=== PATIENT | male | born 1940 | race Caucasian/White ===

== ENCOUNTER 2023-05-01 10:06 | Outpatient (AMB) | payer MEDICARE, SELFPAY ==
--- NOTE | 2023-05-01 10:10 | HO.NEPHOV_ITS ---
HPI HPI Comments History of Present Illness Details I had the pleasure of seeing Tay in follow-up of his chronic kidney disease. He has history of Whipples. He had undergone fusion at one of his knee joints. His blood sugar is labile. He is on insulin pump. His blood pressure has been at goal. He avoids nonsteroidal anti-inflammatories. He denies nausea, vomiting, diarrhea, chest pain, shortness of breath, proximal nocturnal dyspnea, orthopnea, hematuria, urinary symptoms or orthostasis. He had a mechanical fall with injuries. His serum creatinine has been stable 1.3. [facility] Medical History (Updated 05/01/23 @ 10:42 by Winston Comer MD) Hypertension CKD (chronic kidney disease) stage 3, GFR 30-59 ml/min Surgical History (Updated 05/01/23 @ 10:21 by Honey Lilly MA) History of hernia repair S/P triple vessel bypass History of back surgery History of knee replacement History of surgery on lower extremity Family History (Updated 05/01/23 @ 10:23 by Honey Lilly MA) Mother Stroke Father Heart attack Social History (Updated 05/01/23 @ 10:21 by Honey Lilyl MA) Alcohol intake: never Patient Tobacco Use Status: Former Tobacco user Vital Signs 05/01/23 10:12 Height 5 ft 6 in Weight 160 lb 4 oz BMI 25.9 BP 90/60 Blood Pressure Location Rt brachial Position Sitting Pulse 53 Pulse Source Pulse Oximeter Pulse Oximetry (%) 98 Oxygen Delivery Method Room Air Physical Exam Vital Signs: Last Vital Signs Pulse 53 05/01/23 10:12 BP 90/60 05/01/23 10:12 Pulse Ox 98 05/01/23 10:12 Oxygen Delivery Method Room Air 05/01/23 10:12 BMI result Body Mass Index 25.9 Const General: comfortable and no acute distress Orientation/consciousness: patient oriented x3 HEENT Head: Yes normocephalic Mouth: Normal oral and palatal mucosa present Eyes EOM: EOMs intact bilaterally Neck Neck: Yes supple Resp Auscultation: clear to auscultation bilaterally Cardio Jugular venous distension: no JVD Rate: regular rate GI Palpation (GI): Soft to palpation Auscultation: normal bowel sounds General: Yes no CVA tenderness Back/Spine/Pelvis Back: no CVA tenderness Skin General skin exam: no rashes or lesions noted Neuro General: patient oriented x3 and moves all extremities Assessment & Plan Assessment & Plan (1) Hypertension: Code(s): I10 - Essential (primary) hypertension Qualifiers: Hypertension type: primary hypertension Qualified Code(s): I10 - Essential (primary) hypertension (2) CKD (chronic kidney disease) stage 3, GFR 30-59 ml/min: Code(s): N18.30 - Chronic kidney disease, stage 3 unspecified Qualifiers: Chronic kidney disease stage 3 subtype: stage 3a (GFR 45-59) Qualified Code(s): N18.31 - Chronic kidney disease, stage 3a Plan He has CKD stage 3. His renal functions are currently stable. His last serum creatinine was 1.3. He does not have any proteinuria. His blood pressure is at goal. He is on statins. His volume status is optimal. I did not change any medications . Follow-up lab work ordered. Follow-up appointment given Orders: Orders Creatinine Today I10 - Essential (primary) hypertension, N18.30 - Chronic kidney disease, stage 3 unspecified Blood Urea Nitrogen Today I10 - Essential (primary) hypertension, N18.30 - Chronic kidney disease, stage 3 unspecified Electrolytes Today I10 - Essential (primary) hypertension, N18.30 - Chronic kidney disease, stage 3 unspecified Coding Level of Care Code Est Pt Level 3 (16243) Diagnoses Primary hypertension I10 Hypertension type: primary hypertension Stage 3a chronic kidney disease N18.31 Chronic kidney disease stage 3 subtype: stage 3a (GFR 45-59) Results Reviewed Nephrology Results: No Data to Display
[2023-05-01 10:12] VITALS: BP 90/60; PULSE 53; O2SAT 98; BMI 25.9
== END 2023-05-01 10:48 | disposition home or self-care (01) ==
PROVIDERS: Visit Provider Internal Medicine Nephrology
DX: I10 Essential (primary) hypertension (principal); N18.31 Chronic kidney disease, stage 3a
CPT/HCPCS: 99213

== ENCOUNTER → 2023-05-01 10:06 | Outpatient (BNVA) | payer MEDICARE, SELFPAY | PROVIDERS: Visit Provider Internal Medicine Nephrology | DX: I12.9 Hypertensive chronic kidney disease with stage 1 through stage 4 chronic kidney disease, or unspecified chronic kidney disease (principal); N18.31 Chronic kidney disease, stage 3a | CPT/HCPCS: 99212 ==

== ENCOUNTER 2023-12-11 09:32 | Outpatient (AMB) | payer MEDICARE, SELFPAY ==
--- NOTE | 2023-12-11 09:47 | HO.NEPHOV ---
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 He has history of Whipples. He had undergone fusion at one of his knee joints. His blood sugar is better controlled. He is on insulin pump. His blood pressure has been at goal. He avoids nonsteroidal anti-inflammatories. He denies nausea, vomiting, diarrhea, chest pain, shortness of breath, proximal nocturnal dyspnea, orthopnea, hematuria, urinary symptoms or orthostasis. His serum creatinine has been stable [facility] Medical History (Updated 12/11/23 @ 10:01 by Winston Comer MD) Hypertension CKD (chronic kidney disease) stage 3, GFR 30-59 ml/min Surgical History (Updated 12/11/23 @ 09:52 by Honey Lilly MA) H/O repair of rotator cuff History of carpal tunnel release History of hernia repair S/P triple vessel bypass History of back surgery History of knee replacement History of surgery on lower extremity Family History Mother Stroke Father Heart attack Social History Alcohol intake: never Patient Tobacco Use Status: Former Tobacco user Review of Systems Const All systems reviewed & are unremarkable except as noted in HPI and below Physical Exam Vital Signs: Last Vital Signs Pulse 51 12/11/23 09:48 BP 112/60 12/11/23 09:48 Pulse Ox 97 12/11/23 09:48 Oxygen Delivery Method Room Air 12/11/23 09:48 BMI result Body Mass Index 25.4 Const General: comfortable and no acute distress Orientation/consciousness: patient oriented x3 HEENT Head: Yes normocephalic Mouth: Normal oral and palatal mucosa present Eyes EOM: EOMs intact bilaterally Neck Neck: Yes supple Resp Auscultation: clear to auscultation bilaterally Cardio Jugular venous distension: no JVD Rate: regular rate GI Palpation (GI): Soft to palpation Auscultation: normal bowel sounds General: Yes no CVA tenderness Back/Spine/Pelvis Back: no CVA tenderness Skin General skin exam: no rashes or lesions noted Neuro General: patient oriented x3 and moves all extremities Extrem General: Yes no pedal edema Results Reviewed Nephrology Results: No Data to Display Assessment & Plan Assessment & Plan (1) CKD (chronic kidney disease) stage 3, GFR 30-59 ml/min: Code(s): N18.30 - Chronic kidney disease, stage 3 unspecified Category: Medical Qualifiers: Chronic kidney disease stage 3 subtype: stage 3a (GFR 45-59) Qualified Code(s): N18.31 - Chronic kidney disease, stage 3a (2) Hypertension: Code(s): I10 - Essential (primary) hypertension Category: Medical Qualifiers: Hypertension type: primary hypertension Qualified Code(s): I10 - Essential (primary) hypertension Plan He has CKD stage 3. His renal functions are currently stable. His last serum creatinine was 1.18. He does not have any proteinuria. His blood pressure is at goal. He is on statins. His volume status is optimal. I did not change any medications . Follow-up lab work ordered. Follow-up appointment given Orders: Orders Creatinine Today I10 - Essential (primary) hypertension, N18.31 - Chronic kidney disease, stage 3a Blood Urea Nitrogen Today I10 - Essential (primary) hypertension, N18.31 - Chronic kidney disease, stage 3a Electrolytes Today I10 - Essential (primary) hypertension, N18.31 - Chronic kidney disease, stage 3a Coding Level of Care Code Est Pt Level 4 (69638) Diagnoses Stage 3a chronic kidney disease N18.31 Chronic kidney disease stage 3 subtype: stage 3a (GFR 45-59) Primary hypertension I10 Hypertension type: primary hypertension
[2023-12-11 09:48] VITALS: BP 112/60; PULSE 51; O2SAT 97; BMI 25.4
== END 2023-12-11 10:12 | disposition home or self-care (01) ==
PROVIDERS: PCP Internal Medicine; Visit Provider Internal Medicine Nephrology
DX: N18.31 Chronic kidney disease, stage 3a (principal); I10 Essential (primary) hypertension
CPT/HCPCS: 99214

== ENCOUNTER → 2023-12-11 09:32 | Outpatient (BNVA) | payer MEDICARE, SELFPAY | PROVIDERS: PCP Internal Medicine; Visit Provider Internal Medicine Nephrology | DX: I12.9 Hypertensive chronic kidney disease with stage 1 through stage 4 chronic kidney disease, or unspecified chronic kidney disease (principal); N18.31 Chronic kidney disease, stage 3a | CPT/HCPCS: 99212 ==

== ENCOUNTER 2024-06-10 09:46 | Outpatient (AMB) | payer MEDICARE, SELFPAY ==
--- NOTE | 2024-06-10 09:51 | HO.NEPHOV ---
Vital Signs 06/10/24 09:56 Height 5 ft 6 in Weight 155 lb 6 oz BMI 25.1 BP 80/44 L Blood Pressure Location Lt brachial Position Sitting Pulse 56 Pulse Source Pulse Oximeter Pulse Oximetry (%) 95 Oxygen Delivery Method Room Air Intake Visit Reasons: CKD/ 6 MO FU-Conf Safety Representative Required: No Accompanied by: Self / Same As Patient Allergies No Known Allergies Allergy (Verified 06/10/24 09:56) HPI Comments Details: I had the pleasure of seeing Tay in follow-up of his chronic kidney disease. He has history of Whipples. His BP has been running low. His blood sugar is better controlled. He is on insulin pump. He avoids nonsteroidal anti-inflammatories. He denies nausea, vomiting, diarrhea, chest pain, shortness of breath, proximal nocturnal dyspnea, orthopnea, hematuria, urinary symptoms or orthostasis. His serum creatinine has gone up from baseline [facility] Medical History (Updated 06/10/24 @ 10:20 by Winston Comer MD) Hypertension CKD (chronic kidney disease) stage 3, GFR 30-59 ml/min Surgical History H/O repair of rotator cuff History of carpal tunnel release History of hernia repair S/P triple vessel bypass History of back surgery History of knee replacement History of surgery on lower extremity Family History Mother Stroke Father Heart attack Social History Alcohol intake: never Patient Tobacco Use Status: Former Tobacco user Review of Systems Const All systems reviewed & are unremarkable except as noted in HPI and below Physical Exam Vital Signs: Last Vital Signs Pulse 56 06/10/24 09:56 BP 80/44 L 06/10/24 09:56 Pulse Ox 95 06/10/24 09:56 Oxygen Delivery Method Room Air 06/10/24 09:56 BMI result Body Mass Index 25.1 Const General: comfortable and no acute distress Orientation/consciousness: patient oriented x3 HEENT Head: Yes normocephalic Mouth: Normal oral and palatal mucosa present Eyes EOM: EOMs intact bilaterally Neck Neck: Yes supple Resp Auscultation: clear to auscultation bilaterally Cardio Jugular venous distension: no JVD Rate: regular rate GI Palpation (GI): Soft to palpation Auscultation: normal bowel sounds Skin General skin exam: no rashes or lesions noted Neuro General: patient oriented x3 and moves all extremities Results Reviewed Nephrology Results: No Data to Display Assessment & Plan Assessment & Plan (1) AGUILA (acute kidney injury): Code(s): N17.9 - Acute kidney failure, unspecified Category: Medical (2) CKD (chronic kidney disease) stage 3, GFR 30-59 ml/min: Code(s): N18.30 - Chronic kidney disease, stage 3 unspecified Category: Medical Qualifiers: Chronic kidney disease stage 3 subtype: stage 3a (GFR 45-59) Qualified Code(s): N18.31 - Chronic kidney disease, stage 3a (3) Hypertension: Code(s): I10 - Essential (primary) hypertension Category: Medical Qualifiers: Hypertension type: primary hypertension Qualified Code(s): I10 - Essential (primary) hypertension Plan He has CKD stage 3. His renal functions are marginally worse with low BP's. I held his Amlodiopine. I asked him to increase hydration. He does not have any proteinuria. His blood pressure is at goal. He is on statins. His volume status is optimal. I did not change any other medications . Follow-up lab work ordered. Follow-up appointment given Orders: Orders Creatinine 1 Month I10 - Essential (primary) hypertension, N17.9 - Acute kidney failure, unspecified, N18.31 - Chronic kidney disease, stage 3a Blood Urea Nitrogen 1 Month I10 - Essential (primary) hypertension, N17.9 - Acute kidney failure, unspecified, N18.31 - Chronic kidney disease, stage 3a Electrolytes 1 Month I10 - Essential (primary) hypertension, N17.9 - Acute kidney failure, unspecified, N18.31 - Chronic kidney disease, stage 3a Coding Level of Care Code Est Pt Level 4 (97495) Diagnoses AGUILA (acute kidney injury) N17.9 Stage 3a chronic kidney disease N18.31 Chronic kidney disease stage 3 subtype: stage 3a (GFR 45-59) Primary hypertension I10 Hypertension type: primary hypertension
[2024-06-10 09:56] VITALS: BP 80/44; PULSE 56; O2SAT 95; BMI 25.1
--- OUTSIDE RECORDS SUMMARY | 2024-06-10 11:15 | XMS_ITS | Encounter Summary ---
Author Name [facility] [facility] Address [address] [place] [address] Care Team Providers Care Manager Intensive Care Unit Name Role Phone BONITA HELMS Primary Care Provider UnavailMOHAMUD Banuelos Unavailable Unavailable BELA RODNEY Unavailable Unavailable LON CHIU Unavailable Unavailable PATRICIA YOUSSEF Unavailable Unavailable TELMA, MARY Unavailable UnavailPEBBLES Marx Unavailable Unavailable CELE VELÁZQUEZ Unavailable Unavailable Insurance Providers: All historical and current Section Date Range: From patient's date of to the date document was created. This section includes the names of all active insurance providers for the patient. Insurance Provider Type of Coverage Plan Name Start of Policy Coverage End of Policy Coverage Group Number Member ID Insurance Provider's Telephone Number Policy Mueller's Name Patient's Relationship to Policy Mueller [facility] MEDICARE SUPPLEMEN MEGHANA MEDEX ANDRY E Mar 12, 2016 [id number] PRIYANK TURPIN SEPH PATIENT MEDICARE (WNR) MEDICARE (M) PART B May 10, 2004 PART B [id number] PRIYANK TURPIN SEPH PATIENT MEDICARE (WNR) MEDICARE (M) PART B May 10, 2004 PART B [id number] PRIYANK TURPIN SEPH PATIENT MEDICARE (WNR) MEDICARE (M) PART A July 10, 1997 PART A [id number] PRIYANK TURPIN PATIENT MEDICARE (WNR) MEDICARE (M) PART A July 10, 1997 PART A [id number] [facility] PRIYANK TURPIN PATIENT Selected Encounter This section includes the information on record at [place] for the Encounter. Date/Time Encounter Type Encounter Description Reason Provider Source Sep 21, 2023 10:30 AM HEARING AID REPAIR/MODIFYING AUDIOLOGY ICD-10-CM Z46.1 Encounter for fitting and adjustment of hearing aid XAVIER CARMEN Encounter Template Text not used by [place] Assessments - Encounter Diagnoses This section includes the primary and secondary diagnoses documented for the Encounter. Date/Time Primary/Secondary Diagnosis Diagnosis Name Provider Source Sep 21, 2023 11:02 AM PRIMARY Encounter for fitting and adjustment of hearing aid CELE CAPPS Sep 21, 2023 11:02 AM SECONDARY Sensorineural hearing loss, bilateral CELE CAPPS Plan of Treatment: Future Appointments (+ 6 months) and Future Tests (+/- 45 days) The Plan of Treatment section includes future care activities for the patient from all [place] treatmentfacilities. This section includes future appointments and future orders which are active, pending or scheduled. Future Appointments This section includes appointments that were scheduled to occur 6 months from the date of the Encounter, up to a maximum of 20 appointments. The data comes from all [place] treatment facilities. Appointment Date/Time Appointment Type Appointme nt Facility Name Oct 16, 2023 10:00 AM AMBULATORY - MEDICINE [facility] Nov 27, 2023 11:00 AM AM[facility]ULAT[facility] Nov 28, 2023 10:30 AM AMBULATORY - MEDICINE [facility] [place] [facility] Nov 28, 2023 11:30 AM AMBULATORY - MEDICINE [facility] [place] [facility] Nov 28, 2023 11:45 AM [facility]ULATORY [facility] [place] [facility] Jan 09, 2024 02:00 PM AMBULATORY - [facility] [place] [facility] Feb 29, 2024 11:00 AM AMBULATORY - [facility]ICIN [facility] Mar 17, 2024 11:00 AM AMBULATORY - [facility] [place] [facility] [place] [facility] Social History: Smoking Status (Most current) and Tobacco Use (All prior to encounter date) This section includes the most current, and the historical, smoking and tobacco- related health factors from the [place] facility where the Encounter took place. Current Smoking Status This section includes the most current smoking, or tobacco-related health factor, from the [place] facility where the Encounter took place. Date/Time Current Smoking Status Comment Facil ity Jun 11, 2023 10:30 AM VA-TOBACCO QUIT 15 YRS OR MORE [facility] Tobacco Use History This section includes a history of the smoking, or tobacco-related health factors, that were collected on or before the date of the Encounter. The data comes from the [place] facility where the Encounter took place. Date/Time Smoking Status/Tobacco Use Comment F acility Jun 11, 2023 10:30 AM VA-TOBACCO QUIT 15 YRS OR MORE [facility] Feb 18, 2021 01:30 PM VA-TOBACCO NEVER USED [facility] Jan 13, 2020 10:00 AM VA-TOBACCO NEVER USED [facility] May 09, 2017 11:00 AM QUIT TOBACCO USE > 7 YEARS AGO does not smoke [facility] July 18, 2016 10:35 AM LIFETIME NON-TOBACCO USER [facility] May 11, 2015 10:13 AM QUIT TOBACCO USE > 7 YEARS AGO [facility] Jan 27, 2005 09:24 AM HISTORY OF SMOKING 1987 [facility] Feb 23, 2004 02:53 PM HISTORY OF SMOKING stopped tobacco 17 years ago [facility] Feb 23, 2004 02:53 PM QUIT TOBACCO USE > 7 YEARS AGO stopped tobacco 17 years ago [facility] Feb 14, 2001 09:55 AM HISTORY OF SMOKING [facility] Feb 14, 2001 09:55 AM NON-TOBACCO USER quit x 14yrs. [facility] Advance Directives: All historical and current Section Date Range: From patient's date of to the date document was created. This section includes ALL of a patient's completed or amended [place] Advance and Rescinded Directives. The entries below indicate that a directive exists for the patient, but an actual copy is not included with this document. The data comes from all [facility]. Date Advance Directives Provider Source Jun 28, 2009 ADVANCE DIRECTIVE MANUELITO MORELOS Encounter Notes: All associated encounter notes This section contains the clinical notes associated to the Encounter. Date/Time Encounter Note(s) Provider Source Sep 21, 2023 08:35 AM AUDIOLOGY NOTE: LOCAL TITLE: AUDIOLOGY [facility] STANDARD TITLE: AUDIOLOGY NOTE DATE OF NOTE: SEP 21, 2023@08:35 ENTRY DATE: SEP 21, 2023@08:35:16 AUTHOR: CELE CAPPS COSIGNER: JOAQUINA SINGLETON URGENCY: STATUS: COMPLETED September 21, 2023 History/Background: was seen for a hearing aid follow up at the [facility], accompanied by his . [place] was scheduled today for routine hearing aid maintenance. [place] stated he has been having difficulty hearing lately. [place] stated he declined cochlear implant consult due to having to travel to [place]. Hearing aids: [employer] EVOLV AI POWER+ BTE 13s Serial Numbers: [id number] Date Issued: 04/17/2022 Hearing aid check: Both hearing aids were cleaned and checked. Initial inspection revealed soft clear tubes. Replaced tubes, tonehooks and nato covers. Biologic check was good. Otoscopy: Clear canals. Discussed hearing aid accessories that has at home, such as the SHT TV Streamer and Remote Nato. is unsure if he has these, suggested looking around for the remote nato and went over the functions. Veterans thinks she knows where it is. will call the clinic if he is unable to find them. Counseled on accessory start/stop with the VC button for the TV Streamer. He will call the clinic if he has questions. Plan: [place] was scheduled for routine maintenance on 02/29/2024 @ 1100 on [facility]. RT order entered. /devon/ CELE CAPPS [facility] Sock Lining Stitcher Signed: 09/24/2023 07:21 /devon/ HE CEDEÑO, [facility] [place]-A STAFF TREE TOPPER Cosigned: 09/24/2023 07:56 Receipt Acknowledged By: 09/26/2023 07:24 /devon/ MOHAMUD PRINGLE LEAD WEBBING TACKER CELE CAPPS
--- OUTSIDE RECORDS SUMMARY | 2024-06-10 11:15 | XMS_ITS | Encounter Summary ---
Author Name [facility] [place] Address [address] [place] [address] Care Team Providers Care Model Maker Fiberglass Name Role Phone BONITA HELMS Primary Care Provider UnavailMOHAMUD Banuelos Unavailable Unavailable BELA RODNEY Unavailable Unavailable LON CHIU Unavailable Unavailable PATRICIA YOUSSEF Unavailable Unavailable MARY HOLLIS Unavailable UnavailPEBBLES Marx Unavailable Unavailable CELE VELÁZQUEZ [...] Mueller's Name Patient's Relationship to Policy Mueller [facility] MEDICARE SUPPLEMEN MEGHANA MEDEX ANDRY E Mar 12, 2016 [id number] PRIYANK ELIZABETH SEPH PATIENT MEDICARE (WNR) MEDICARE (M) PART B May 10, 2004 PART B [id number] PRIYANK ELIZABETH SEPH PATIENT MEDICARE (WNR) MEDICARE (M) PART B May 10, 2004 PART B [id number] PRIYANK ELIZABETH SEPH PATIENT MEDICARE (WNR) MEDICARE (M) PART A July 10, 1997 PART A [id number] PAPIPRIYANK HARJINDER PATIENT MEDICARE (WNR) MEDICARE (M) PART A July 10, 1997 PART A [id number] [phone] PRIYANK ELIZABETH PATIENT Selected Encounter This section includes the information on record at [place] for the Encounter. Date/Time Encounter Type Encounter Description Reason Provider Source Oct 19, 2023 08:27 AM QNHP OL DIG ASSMT&MGMT 21+ [facility] - CLINICAL PHARMACIST ICD-10-CM Z79.899 Other chcf (current) drug therapy [facility]LE VEL[facility]QUEZ [facility] Encounter Template Text not used by [place] Assessments - Encounter Diagnoses This section includes the primary and secondary diagnoses documented for the Encounter. Date/Time Primary/Secondary Diagnosis Diagnosis Name Provider Source Oct 19, 2023 10:11 PM PRIMARY Other buttermaker (current) drug therapy CELE VEL[place]QUEZ [place] [facility] Plan of Treatment: Future Appointments (+ 6 months) and Future Tests (+/- 45 days) The Plan of Treatment section includes future care activities for the patient from all [place] [facility]. This section includes future appointments and future orders which are active, pending or scheduled. Future Appointments This section includes appointments that were scheduled to occur 6 months from the date of the Encounter, up to a maximum of 20 appointments. The data comes from all [place] treatment facilities. Appointment Date/Time Appointment Type Appointme nt Facility Name Nov 27, 2023 11:00 AM AMBULATORY - REH[place] MEDICIN E [place] [facility] [place] [facility] Nov 28, 2023 10:30 AM AMBULATORY - MEDICINE [place] [facility] [place] [facility] Nov 28, 2023 11:30 AM AMBULATORY - MEDICINE [place] [facility] [place] [facility] Nov 28, 2023 11:45 AM AM[facility]ULATORY - MEDICINE [place] [facility] [place] [facility] Jan 09, 2024 02:00 PM [facility]UL[facility] [place] [facility] Feb 29, 2024 11:00 AM AMBULATORY - REHAB MEDICIN E [place] Mar 17, 2024 11:00 AM AMBULATORY - [place] MEDICIN E [place] [facility] [place] [facility] Apr 11, 2024 01:00 PM AMBULATORY - REHAB MEDICIN E [place] Social History: Smoking Status (Most current) and Tobacco Use (All prior to encounter date) This section includes the most current, and the historical, smoking and tobacco- related health factors from the [place] facility where the Encounter took place. Current Smoking Status This section includes the most current smoking, or tobacco-related health factor, from the [place] facility where the Encounter took place. Date/Time Current Smoking Status Comment Kathy unger Mar 24, 2022 10:01 AM [place]-TOBACCO NEVER USED [place] [facility] [place] [facility] Advance Directives: All historical and current Section Date Range: From patient's date of to the date document was created. This section includes ALL of a patient's completed or amended [place] Advance and Rescinded Directives. The entries below indicate that a directive exists for the patient, but an actual copy is not included with this document. The data comes from all [place] facilities. Date Advance Directives Provider Source Jun 28, 2009 ADVANCE DIRECTIVE MANUELITO MORELOS Encounter Notes: All associated encounter notes This section contains the clinical notes associated to the Encounter. Date/Time Encounter Note(s) Provider Source Oct 23, 2023 01:32 PM ADDENDUM: LOCAL TITLE: Addendum STANDARD TITLE: ADDENDUM DATE OF NOTE: OCT 23, 2023@13:32:43 ENTRY DATE: OCT 23, 2023@13:32:44 AUTHOR: DILLON HOLLIS COSIGNER: URGENCY: STATUS: COMPLETED Please informa patient Recommendations: - Would consider dose reduction of bedtime PRN zolpidem IR 10mg to 5mg given concern for dizziness, next day impairment, CABLE TENDER depression, and confusion as well as association with fall/fracture risk and increased ER visits/hospitalizations. While appreciate Rx is for PRN use has been taking on a daily basis. Dose reduction is important to avoid withdrawal symptoms from abrupt discontinuation. ## Zolpidem IR decreased to 5mg qhs PRN## - 's last vit D and Ca levels were lower than recommended and he has a significant fall history. Recommend initiation of calcium 500mg/vit D 200 units combination supplement BID. ##calcium 500mg/vit D 200 units combination supplement BID ordered## - has a history of CAD, but is not on low-dose aspirin. Per problem list, he has a history of hematuria, but thought to be related to cancer that was diagnosed and last Hgb/Hct WNL. [facility]. Please consider starting antiplatelet therapy if benefits outweigh risks given history of ASCVD. If not appropriate to start aspirin at this time, would consider increasing atorvastatin to high- intensity dosing (40mg daily) for secondary ASCVD prevention. Of note, last AST/ALT were elevated, but baseline elevation in AST/ALT is not a reason to avoid statins for a compelling indication. If statin dose is increased will just have to continue to monitor LFTs and for muscle-related symptoms suggestive that is not tolerating. ##please clarify if patient would like to retrial ASA 81mg given risk factors## - Recommend discontinuation of fish oil given last TG of 134 and lack of evidence supporting use of fish oil supplements for CV risk reduction. 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 ##please dc fish oil if patient in agreement to stop at this time## /es/ MARY HOLLIS RN,MSN,LUTE PACKER OR APPLIER-C [facility] NURSE PRACTITIONER Signed: 10/23/2023 13:38 Receipt Acknowledged By: 10/24/2023 14:21 /es/ Dalton Trinidad RN [facility] early childhood special educator --- Original Document --- 10/19/23 [facility] PHARM[facility] MEDICATION REVIEW: Tay Elizabeth Jr. is an 83 year-old WHITE MALE. 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, prostate and bladder cancer s/p TURP Alcohol (+): 1 beer weekly Tobacco (-): former smoker Allergies/ADR: RADIOLOGICAL/CONTRAST MEDIA, GUAFENESIN/DEXTROMETHORPHAN (hives) Active Outpatient Medications Status 1) ACCU-CHEK GUIDE (GLUCOSE) TEST STRIP USE 1 STRIP TO ACTIVE TEST BLOOD SUGARS FOUR TIMES A DAY 2) ACCU-CHEK GUIDE ME (GLUCOSE) METER USE METER TO TEST ACTIVE BLOOD SUGARS FOUR TIMES A DAY 3) AMLODIPINE BESYLATE 10MG TAB TAKE ONE TABLET BY MOUTH ACTIVE ONCE DAILY FOR BLOOD PRESSURE/HEART, DO NOT TAKE WITH GRAPEFRUIT JUICE REPLACE LOSARTAN 4) ATORVASTATIN CALCIUM 20MG TAB TAKE ONE TABLET BY ACTIVE MOUTH AT BEDTIME FOR CHOLESTEROL 5) CARBOXYMETHYLCELLULOSE NA 0.5% OPH SOLN INSTILL 1 ACTIVE DROP INTO EACH EYE FOUR TIMES DAILY NEEDED FOR DRY EYE 6) CREON 24,000UNIT EC CAP TAKE 3 CAPSULES BY MOUTH ACTIVE THREE TIMES A DAY 7) GLUCOSE 4GM CHEW TAB CHEW FOUR TABLETS BY MOUTH ACTIVE NEEDED FOR LOW BLOOD SUGAR 8) GLUCOSE SENSOR FREESTYLE CINDI 3 USE 1 SENSOR ACTIVE (S) DIRECTED EVERY 14 DAYS 9) HYDROCODONE 5MG/ACETAMINOPHEN 325MG TAB TAKE 1 TABLET ACTIVE BY MOUTH THREE TIMES DAILY NEEDED FOR PAIN NEXT FILL 10/22/23 10) INSULIN,ASPART,HUMAN 100 UNIT/ML INJ INJECT INSULIN ACTIVE SUBCUTANEOUSLY THREE TIMES DAILY NEEDED ACCORDING TO SLIDING SCALE 11) LANCET,SOFTCLIX USE 1 LANCET DIRECTED FOUR TIMES A ACTIVE DAY TO TEST BLOOD SUGAR 12) METOPROLOL TARTRATE 25MG TAB TAKE ONE-FOURTH TABLET ACTIVE BY MOUTH TWICE DAILY FOR BLOOD PRESSURE/HEART 13) MULTIVIT/OPHTH AREDS2/LUTE/ZEAX CAP/TAB TAKE 1 ACTIVE CAPSULE BY MOUTH TWICE DAILY IN THE MORNING AND EVENING, WITH FOOD 14) NALOXONE HCL 4MG/SPRAY SOLN NASAL SPRAY INSTILL 1 ACTIVE SPRAY ONE NOSTRIL ONE TIME NEEDED FOR OPIOID OVERDOSE CALL 911 WITH ADMINISTRATION. REPEAT WITH SECOND DEVICE IF SYMPTOMS RETURN 15) SERTRALINE HCL 100MG TAB TAKE ONE TABLET BY MOUTH ACTIVE TWICE DAILY 16) TABLET CUTTER (PILL SPLITTER) USE CUTTER DIRECTED ACTIVE BY PROVIDER TO SPLIT TABLETS 17) TAMSULOSIN HCL 0.4MG CAP TAKE ONE CAPSULE BY MOUTH ACTIVE ONCE DAILY FOR ENLARGED PROSTATE 18) ZOLPIDEM TARTRATE 10MG TAB TAKE ONE TABLET BY MOUTH ACTIVE BEDTIME NEEDED FOR SLEEP Active Non-VA Medications Status 1) Non-VA OTHER CAP/TAB FISH OIL, 1000MG EVERY DAY ACTIVE THE ABOVE MEDICATIONS WERE REVIEWED FOR: ADR, potential incompatibilities, compliance, duplication of therapy, and indications on problem list Other Rx/OTC/Herbals: none identified High Alert Meds: hydrocodone/acetaminophen, insulin aspart, zolpidem Look Alike/Sound Alike Meds: atorvastatin, hydrocodone/acetaminophen, insulin aspart, metoprolol tartrate, naloxone, sertraline Duplication of Therapy: none Excessive Duration: ?zolpidem Vitals: ======= Ht: 67 in [170.2 cm] (11/06/2022 14:48) Wt: 159.2 lb [72.21 kg] (06/11/2023 10:32) BMI: 25.0 BP: 138/60 (10/08/2023 12:00) HR: 46 (10/08/2023 12:00) Pain: 5 (10/08/2023 12:00) Labs: ===== SERUM Na K BUN SCr 06/07/23 140 4 23 1.18 10/31/22 140 4.6 37 H 1.56 H eGFR (CKD-EPI 2020): 61 (06/07/23) CrCl (C&G, SCr 1.18, ideal BW): ~44 mL/min Microalbumin/Cr: 452 H mg/G (06/07/23) Uric acid: 4.7 mg/dL (06/07/23) PSA: 1.01 ng/mL (06/07/23) SERUM AST ALT T Bili Alk Phos 06/07/23 65 H 54 0.4 138 10/31/22 52 H 42 0.5 156 H BLOOD WBC Hgb Hct MCV Plt 06/07/23 5.67 13 40.5 88.4 161 A1c: 9.8 % (06/07/23) 8.2 % (10/31/22) TSH: 4.17 uIU/mL (06/07/23) Vit B12: 586 pg/mL (06/07/23) SERUM LDL HDL TG Tot Chol 06/07/23 58 23 L 134 108 Vit D: 28 L ng/mL (10/31/22) Ca: 8 L mg/dL (06/07/23) Alb: 3.7 g/dL (06/07/23) ASSESSMENT: with a history of T1DM on insulin pump s/p pancreatectomy, bladder cancer, chronic pain on opioids, and general anxiety/depressive disorders was admitted to [facility] on 09/19/23. He is currently independent in ADLs, but has a history of multiple falls. He is unable to bend his L knee and primarily uses a rollator or cane for ambulating. INTERVENTIONS/SUGGESTIONS: 1. Patient's medications were reviewed for significant drug interactions. * hydrocodone/sertraline: concurrent use may increase risk of serotonin syndrome; monitor for signs/sx (neuromuscular abnormalities, tachycardia, diaphoresis, hyperthermia, N/V, diarrhea or AMS) * hydrocodone/zolpidem: concurrent use may increase risk of respiratory and CABLE TENDER depression; recommend dose reduction of zolpidem * metoprolol/sertraline: concurrent use may increase metoprolol exposure; monitor vitals and for signs/sx of orthostasis * tamsulosin/sertraline: concurrent use may increase tamsulosin exposure; monitor for signs/sx of orthostasis and ensure is taking tamsulosin with a meal to support tolerance * sertraline/zolpidem: concurrent use may increase zolpidem exposure; recommend dose reduction of zolpidem to reduce risk of ADRs especially given older age * insulin/metoprolol: beta mary use may mask symptoms of hypoglycemia; monitor SMBG using CGM * metoprolol/tamsulosin: concurrent use may increase risk of orthostasis; monitor for signs/sx and ensure is taking tamsulosin with a meal to support tolerance 2. Patient has reduced renal function with an estimated creatinine clearance of ~44 mL/min, therefore at risk of accumulation of renally cleared drugs. Last AST/ALT slightly elevated. Current medications are dosed appropriately for the patient's renal and hepatic function. * atorvastatin - baseline elevation in AST/ALT should not preclude use of statins for compelling indications 3. Medications reviewed to determine if regimen could contribute to falls. Several agents on 's active medication list may increase fall risk including amlodipine, atorvastatin, hydrocodone, insulin, metoprolol, sertraline, tamsulosin, and zolpidem. Last documented fall occurred in September 2023; lost his balance stepping off the curb with no documented injury. To reduce the risk for falls, educate pt re: safe postural transitions and signs/sx of orthostatic hypotension. Also, monitor for dizziness, drowsiness, sedation, fatigue, confusion, hypotension, bradycardia, hypoglycemia, and muscle pain/weakness given current medication regimen. Educate pt re: need to have blood glucose monitored for signs/sx of confusion, diaphoresis, and/or dizziness with use of insulin. Please encourage administration of tamsulosin with meals to prevent adverse effect of orthostatic hypotension. 4. All medical conditions have appropriate medication treatment. * bladder and prostate cancer - diagnosed 2021, followed by [facility]; s/ TURP, stable with surveillance (cystoscopy every 6 months) * T1DM - hx of total pancreatectomy, on insulin pump (insulin aspart) currently followed by non-[facility] Endo with support from [facility] IDT, recently started on CGM (L[facility] labs Cindi 3), followed by non-[facility] Podiatry; receives steroid injections every 3 months; last A1c 9.8% elevated above goal with documented episodes of hypoglycemia with elevated BG readings in 500s - will need to obtain last non-[facility] Endo visit documentation and ensure f/u or switch to [facility] for ongoing management; recently educated on how to treat low blood sugars on 10/08/23 and has glucose tabs at home; last seen by Optometry in Mar 2022 - f/u scheduled for Nov 2023 * HTN - on amlodipine and beta mary with recent limited SBPs in 130s and HRs 46, 76; monitor for bradycardia and consider discontinuation of metoprolol; if additional BP lowering is required would consider ROSARIO-i or ARB especially given last labwork significant for elevated microalbumin/Cr * BPH - on tamsulosin * GERD - no hx of GI bleed/ulcers, previously on PP with no recent complaints autophony * hx of hematuria - last Hgb/Hct WNL, bleeding thought to be related to cancer prior to bladder cancer diagnosis 5. All medications have an appropriate indication and supporting clinical symptoms. 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 * AREDS 2 - dry ARMD * Creon - appropriate to be given prior to meals given hx of total pancreatectomy * sertraline - hx of ZAINAB and depressive disorder; PHQ-2 of 0 from 10/18/23 * hydrocodone/acetaminophen - hx of chronic pain (hx of rotator cuff tear, OA, cervicular radiculopathy, disorders of bursae and tendons in the shoulder, 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 Adherence Concerns: no concerns at this time * adolfo manages his own medications 7. Health Maintenance: > Immunizations: Adolfo is due for the following immunizations per chart review and CDC recommendations: * COVID-19 - received a dose of the [id number] formulation on 12/28/22; due for a booster dose - Per Apr 2023 CDC update, adults ages 65 years and older are now recommended to receive an additional updated [id number] COVID-19 vaccine dose in an effort to restore protection that has waned. Adults 65 years and older are disproportionately impacted by COVID-19, with more than half of COVID-19 hospitalizations during December 2022 to February 2023 occurring in this age group. Guidance suggests the booster dose be received at least four months after the previous 2022- 2023 COVID-19 vaccination. * RSV * PCV20 (shared decision making) - received PCV13 on 06/17/15 - received PPSV23 in Mar 2009 > Bladder/Bowel: * Inquire about incontinence and severity biannually. > EtOH: * Continue to ensure minimal alcohol intake given older age and hx of falls > Bone Health: * last Ca and vit D levels low with a hx of falls ; recommend initiating Ca/vit D supplementation > Aspirin: * not on low-dose aspirin despite ASCVD hx * hx of hematuria and falls per problem list 8. Patient with zero refills on: metoprolol tartrate, zolpidem 9. Continue to review quarterly. Recommendations: - Would consider dose reduction of bedtime PRN zolpidem IR 10mg to 5mg given concern for dizziness, next day impairment, CABLE TENDER depression, and confusion as well as association with fall/fracture risk and increased ER visits/hospitalizations. While appreciate Rx is for PRN use has been taking on a daily basis. Dose reduction is important to avoid withdrawal symptoms from abrupt discontinuation. - Mascotte's last vit D and Ca levels were lower than recommended and he has a significant fall history. Recommend initiation of calcium 500mg/vit D 200 units combination supplement BID. - has a history of CAD, but is not on low-dose aspirin. Per problem list, he has a history of hematuria, but thought to be related to cancer that was diagnosed and last Hgb/Hct WNL. [facility] but [facility]. Please consider starting antiplatelet therapy if benefits outweigh risks given history of ASCVD. If not appropriate to start aspirin at this time, would consider increasing atorvastatin to high-intensity dosing (40mg daily) for secondary ASCVD prevention. Of note, last AST/ALT were elevated, but baseline elevation in AST/ALT is not a reason to avoid statins for a compelling indication. If statin dose is increased will just have to continue to monitor LFTs and for muscle-related symptoms suggestive that is not tolerating. - Recommend discontinuation of fish oil given last TG of 134 and lack of evidence supporting use of fish oil supplements for CV risk reduction. 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 - Please assess 's willingness to receive the RSV vaccine during future visits. Also, per non-VA documentation in [facility] received a dose of the [id number] COVID-19 vaccine on 12/28/22. Please update immunization record in [facility] for completeness. The details of this review were shared with the IDT in order to assist in creating a care plan designed to provide services focused on the health and well being of the patient. Time Spent: 120 min /devon/ CELE VELÁZQUEZ [facility] Clinical Pharmacist Practitioner Signed: 10/22/2023 13:01 Receipt Acknowledged By: 10/23/2023 13:40 /devon/ MARY HOLLIS RN,MSN,LUTE PACKER OR APPLIER-C [facility] NURSE PRACTITIONER for BONITA HELMS 10/23/2023 12:10 /es/ Dalton Trinidad RN [facility] early childhood special educator REESE HOLLIS [facility]ii [place] [facility] [place] Oct 19, 2023 08:27 AM [facility] MEDICATION MGT NOTE: LOCAL TITLE: [facility] MEDICATION REVIEW STANDARD TITLE: [facility] MEDICATION MGT NOTE DATE OF NOTE: OCT 19, 2023@08:27 ENTRY DATE: OCT 19, 2023@08:27:13 AUTHOR: CELE VELÁZQUEZ EXP COSIGNER: URGENCY: STATUS: COMPLETED [facility] MEDICATION REVIEW Has ADDENDA Tay Elizabeth Jr. is an 83 year-old WHITE MALE. 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, prostate and bladder cancer s/p TURP Alcohol (+): 1 beer weekly Tobacco (-): former smoker Allergies/ADR: RADIOLOGICAL/CONTRAST MEDIA, GUAFENESIN/DEXTROMETHORPHAN (hives) Active Outpatient Medications Status 1) ACCU-CHEK GUIDE (GLUCOSE) TEST STRIP USE 1 STRIP TO ACTIVE TEST BLOOD SUGARS FOUR TIMES A DAY 2) ACCU-CHEK GUIDE ME (GLUCOSE) METER USE METER TO TEST ACTIVE BLOOD SUGARS FOUR TIMES A DAY 3) AMLODIPINE BESYLATE 10MG TAB TAKE ONE TABLET BY MOUTH ACTIVE ONCE DAILY FOR BLOOD PRESSURE/HEART, DO NOT TAKE WITH GRAPEFRUIT JUICE REPLACE LOSARTAN 4) ATORVASTATIN CALCIUM 20MG TAB TAKE ONE TABLET BY ACTIVE MOUTH AT BEDTIME FOR CHOLESTEROL 5) CARBOXYMETHYLCELLULOSE NA 0.5% OPH SOLN INSTILL 1 ACTIVE DROP INTO EACH EYE FOUR TIMES DAILY NEEDED FOR DRY EYE 6) CREON 24,000UNIT EC CAP TAKE 3 CAPSULES BY MOUTH ACTIVE THREE TIMES A DAY 7) GLUCOSE 4GM CHEW TAB CHEW FOUR TABLETS BY MOUTH ACTIVE NEEDED FOR LOW BLOOD SUGAR 8) GLUCOSE SENSOR FREESTYLE CINDI 3 USE 1 SENSOR ACTIVE (S) DIRECTED EVERY 14 DAYS 9) HYDROCODONE 5MG/ACETAMINOPHEN 325MG TAB TAKE 1 TABLET ACTIVE BY MOUTH THREE TIMES DAILY NEEDED FOR PAIN NEXT FILL 10/22/23 10) INSULIN,ASPART,HUMAN 100 UNIT/ML INJ INJECT INSULIN ACTIVE SUBCUTANEOUSLY THREE TIMES DAILY NEEDED ACCORDING TO SLIDING SCALE 11) LANCET,SOFTCLIX USE 1 LANCET DIRECTED FOUR TIMES A ACTIVE DAY TO TEST BLOOD SUGAR 12) METOPROLOL TARTRATE 25MG TAB TAKE ONE-FOURTH TABLET ACTIVE BY MOUTH TWICE DAILY FOR BLOOD PRESSURE/HEART 13) MULTIVIT/OPHTH AREDS2/LUTE/ZEAX CAP/TAB TAKE 1 ACTIVE CAPSULE BY MOUTH TWICE DAILY IN THE MORNING AND EVENING, WITH FOOD 14) NALOXONE HCL 4MG/SPRAY SOLN NASAL SPRAY INSTILL 1 ACTIVE SPRAY ONE NOSTRIL ONE TIME NEEDED FOR OPIOID OVERDOSE CALL 911 WITH ADMINISTRATION. REPEAT WITH SECOND DEVICE IF SYMPTOMS RETURN 15) SERTRALINE HCL 100MG TAB TAKE ONE TABLET BY MOUTH ACTIVE TWICE DAILY 16) TABLET CUTTER (PILL SPLITTER) USE CUTTER DIRECTED ACTIVE BY PROVIDER TO SPLIT TABLETS 17) TAMSULOSIN HCL 0.4MG CAP TAKE ONE CAPSULE BY MOUTH ACTIVE ONCE DAILY FOR ENLARGED PROSTATE 18) ZOLPIDEM TARTRATE 10MG TAB TAKE ONE TABLET BY MOUTH ACTIVE BEDTIME NEEDED FOR SLEEP Active Non-VA Medications Status 1) Non-VA OTHER CAP/TAB FISH OIL, 1000MG EVERY DAY ACTIVE THE ABOVE MEDICATIONS WERE REVIEWED FOR: ADR, potential incompatibilities, compliance, duplication of therapy, and indications on problem list Other Rx/OTC/Herbals: none identified High Alert Meds: hydrocodone/acetaminophen, insulin aspart, zolpidem Look Alike/Sound Alike Meds: atorvastatin, hydrocodone/acetaminophen, insulin aspart, metoprolol tartrate, naloxone, sertraline Duplication of Therapy: none Excessive Duration: ?zolpidem Vitals: ======= Ht: 67 in [170.2 cm] (11/06/2022 14:48) Wt: 159.2 lb [72.21 kg] (06/11/2023 10:32) BMI: 25.0 BP: 138/60 (10/08/2023 12:00) HR: 46 (10/08/2023 12:00) Pain: 5 (10/08/2023 12:00) Labs: ===== SERUM Na K BUN SCr 06/07/23 140 4 23 1.18 10/31/22 140 4.6 37 H 1.56 H eGFR (CKD-EPI 2020): 61 (06/07/23) CrCl (C&G, SCr 1.18, ideal BW): ~44 mL/min Microalbumin/Cr: 452 H mg/G (06/07/23) Uric acid: 4.7 mg/dL (06/07/23) PSA: 1.01 ng/mL (06/07/23) SERUM AST ALT T Bili Alk Phos 06/07/23 65 H 54 0.4 138 10/31/22 52 H 42 0.5 156 H BLOOD WBC Hgb Hct MCV Plt 06/07/23 5.67 13 40.5 88.4 161 A1c: 9.8 % (06/07/23) 8.2 % (10/31/22) TSH: 4.17 uIU/mL (06/07/23) Vit B12: 586 pg/mL (06/07/23) SERUM LDL HDL TG Tot Chol 06/07/23 58 23 L 134 108 Vit D: 28 L ng/mL (10/31/22) Ca: 8 L mg/dL (06/07/23) Alb: 3.7 g/dL (06/07/23) ASSESSMENT: Mascotte with a history of T1DM on insulin pump s/p pancreatectomy, bladder cancer, chronic pain on opioids, and general anxiety/depressive disorders was admitted to [facility] on 09/19/23. He is currently independent in ADLs, but has a history of multiple falls. He is unable to bend his L knee and primarily uses a rollator or cane for ambulating. INTERVENTIONS/SUGGESTIONS: 1. Patient's medications were reviewed for significant drug interactions. * hydrocodone/sertraline: concurrent use may increase risk of serotonin syndrome; monitor for signs/sx (neuromuscular abnormalities, tachycardia, diaphoresis, hyperthermia, N/V, diarrhea or AMS) * hydrocodone/zolpidem: concurrent use may increase risk of respiratory and CABLE TENDER depression; recommend dose reduction of zolpidem * metoprolol/sertraline: concurrent use may increase metoprolol exposure; monitor vitals and for signs/sx of orthostasis * tamsulosin/sertraline: concurrent use may increase tamsulosin exposure; monitor for signs/sx of orthostasis and ensure is taking tamsulosin with a meal to support tolerance * sertraline/zolpidem: concurrent use may increase zolpidem exposure; recommend dose reduction of zolpidem to reduce risk of ADRs especially given older age * insulin/metoprolol: beta mary use may mask symptoms of hypoglycemia; monitor SMBG using CGM * metoprolol/tamsulosin: concurrent use may increase risk of orthostasis; monitor for signs/sx and ensure is taking tamsulosin with a meal to support tolerance 2. Patient has reduced renal function with an estimated creatinine clearance of ~44 mL/min, therefore at risk of accumulation of renally cleared drugs. Last AST/ALT slightly elevated. Current medications are dosed appropriately for the patient's renal and hepatic function. * atorvastatin - baseline elevation in AST/ALT should not preclude use of statins for compelling indications 3. Medications reviewed to determine if regimen could contribute to falls. Several agents on 's active medication list may increase fall risk including amlodipine, atorvastatin, hydrocodone, insulin, metoprolol, sertraline, tamsulosin, and zolpidem. Last documented fall occurred in September 2023; lost his balance stepping off the curb with no documented injury. To reduce the risk for falls, educate pt re: safe postural transitions and signs/sx of orthostatic hypotension. Also, monitor for dizziness, drowsiness, sedation, fatigue, confusion, hypotension, bradycardia, hypoglycemia, and muscle pain/weakness given current medication regimen. Educate pt re: need to have blood glucose monitored for signs/sx of confusion, diaphoresis, and/or dizziness with use of insulin. Please encourage administration of tamsulosin with meals to prevent adverse effect of orthostatic hypotension. 4. All medical conditions have appropriate medication treatment. * bladder and prostate cancer - diagnosed 2021, [facility]; s/ TURP, stable with surveillance (cystoscopy every 6 months) * T1DM - hx of total pancreatectomy, on insulin pump (insulin aspart) currently [facility] with support from [facility], recently started on CGM ([facility] Cindi 3), followed by [facility]; receives steroid injections every 3 months; last A1c 9.8% elevated above goal with documented episodes of hypoglycemia with elevated BG readings in 500s - will need to obtain last [facility] visit documentation and ensure f/u or [facility] for [facility] management; recently educated on how to treat low blood sugars on 10/08/23 and has glucose tabs at home; last seen by Optometry in Mar 2022 - f/u scheduled for Nov 2023 * HTN - on amlodipine and beta mary with recent limited SBPs in 130s and HRs 46, 76; monitor for bradycardia and consider discontinuation of metoprolol; if additional BP lowering is required would consider ROSARIO-i or ARB especially given last labwork significant for elevated microalbumin/Cr * BPH - on tamsulosin * GERD - no hx of GI bleed/ulcers, previously on PP with no recent complaints autophony * hx of hematuria - last Hgb/Hct WNL, bleeding thought to be related to cancer prior to bladder cancer diagnosis 5. All medications have an appropriate indication and supporting clinical symptoms. 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 * AREDS 2 - dry ARMD * Creon - appropriate to be given prior to meals given hx of total pancreatectomy * sertraline - hx of ZAINAB and depressive disorder; PHQ-2 of 0 from 10/18/23 * hydrocodone/acetaminophen - hx of chronic pain (hx of rotator cuff tear, OA, cervicular radiculopathy, disorders of bursae and tendons in the shoulder, 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 Adherence Concerns: no concerns at this time * adolfo manages his own medications 7. Health Maintenance: > Immunizations: Adolfo is due for the following immunizations per chart review and CDC recommendations: * COVID-19 - received a dose of the [id number] formulation on 12/28/22; due for a booster dose - Per Apr 2023 CDC update, adults ages 65 years and older are now recommended to receive an additional updated 9102-6000 COVID-19 vaccine dose in an effort to restore protection that has waned. Adults 65 years and older are disproportionately impacted by COVID-19, with more than half of COVID-19 hospitalizations during December 2022 to February 2023 occurring in this age group. Guidance suggests the booster dose be received at least four months after the previous 2022- 2023 COVID-19 vaccination. * RSV * PCV20 (shared decision making) - received PCV13 on 06/17/15 - received PPSV23 in Mar 2009 > Bladder/Bowel: * Inquire about incontinence and severity biannually. > EtOH: * Continue to ensure minimal alcohol intake given older age and hx of falls > Bone Health: * last Ca and vit D levels low with a hx of falls ; recommend initiating Ca/vit D supplementation > Aspirin: * not on low-dose aspirin despite ASCVD hx * hx of hematuria and falls per problem list 8. Patient with zero refills on: metoprolol tartrate, zolpidem 9. Continue to review quarterly. Recommendations: - Would consider dose reduction of bedtime PRN zolpidem IR 10mg to 5mg given concern for dizziness, next day impairment, CABLE TENDER depression, and confusion as well as association with fall/fracture risk and increased ER visits/hospitalizations. While appreciate Rx is for PRN use has been taking on a daily basis. Dose reduction is important to avoid withdrawal symptoms from abrupt discontinuation. - Mascotte's last vit D and Ca levels were lower than recommended and he has a significant fall history. Recommend initiation of calcium 500mg/vit D 200 units combination supplement BID. - has a history of CAD, but is not on low-dose aspirin. Per problem list, he has a history of hematuria, but thought to be related to cancer that was diagnosed and last Hgb/Hct WNL. [facility]. Please consider starting antiplatelet therapy if benefits outweigh risks given history of ASCVD. If not appropriate to start aspirin at this time, would consider increasing atorvastatin to high-intensity dosing (40mg daily) for secondary ASCVD prevention. Of note, last AST/ALT were elevated, but baseline elevation in AST/ALT is not a reason to avoid statins for a compelling indication. If statin dose is increased will just have to continue to monitor LFTs and for muscle-related symptoms suggestive that is not tolerating. - Recommend discontinuation of fish oil given last TG of 134 and lack of evidence supporting use of fish oil supplements for CV risk reduction. 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 - Please assess 's willingness to receive the RSV vaccine during future visits. Also, per non[facility] documentation in [facility] received a dose of the [id number] COVID-19 vaccine on 12/28/22. Please update immunization record in [facility] for completeness. The details of this review were shared with the IDT in order to assist in creating a care plan designed to provide services focused on the health and well being of the patient. Time Spent: 120 min /es/ CELE VELÁZQUEZ [facility] Clinical Pharmacist Practitioner Signed: 10/22/2023 13:01 Receipt Acknowledged By: 10/23/2023 13:40 /es/ MARY HOLLIS RN,MSN,[employer] APPLIER-C [facility] NURSE PRACTITIONER for BONITA HELMS 10/23/2023 12:10 /es/ Dalton Trinidad RN [facility] early childhood special educator 10/23/2023 ADDENDUM STATUS: COMPLETED Please informa patient Recommendations: - Would consider dose reduction of bedtime PRN zolpidem IR 10mg to 5mg given concern for dizziness, next day impairment, CABLE TENDER depression, and confusion as well as association with fall/fracture risk and increased ER visits/hospitalizations. While appreciate Rx is for PRN use has been taking on a daily basis. Dose reduction is important to avoid withdrawal symptoms from abrupt discontinuation. ## Zolpidem IR decreased to 5mg qhs PRN## - 's last vit D and Ca levels were lower than recommended and he has a significant fall history. Recommend initiation of calcium 500mg/vit D 200 units combination supplement BID. ##calcium 500mg/vit D 200 units combination supplement BID ordered## - Adolfo has a history of CAD, but is not on low-dose aspirin. Per problem list, he has a history of hematuria, but thought to be related to cancer that was diagnosed and last Hgb/Hct WNL. [facility], but [facility]. Please consider starting antiplatelet therapy if benefits outweigh risks given history of ASCVD. If not appropriate to start aspirin at this time, would consider increasing atorvastatin to high- intensity dosing (40mg daily) for secondary ASCVD prevention. Of note, last AST/ALT were elevated, but baseline elevation in AST/ALT is not a reason to avoid statins for a compelling indication. If statin dose is increased will just have to continue to monitor LFTs and for muscle-related symptoms suggestive that is not tolerating. ##please clarify if patient would like to retrial ASA 81mg given risk factors## - Recommend discontinuation of fish oil given last TG of 134 and lack of evidence supporting use of fish oil supplements for CV risk reduction. 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 ##please dc fish oil if patient in agreement to stop at this time## /es/ MARY HOLLIS RN,MSN,L[employer] APPLIER-C [facility] NURSE PRACTITIONER Signed: 10/23/2023 13:38 Receipt Acknowledged By: * AWAITING SIGNATURE * DALTON TRINIDAD SARAH J SC [facility]
--- OUTSIDE RECORDS SUMMARY | 2024-06-10 11:15 | XMS_ITS | Encounter Summary ---
Author Name [facility] [place] [facility] [place] Address [address] [place] [id number] Care Team Providers Care Valet Parking Attendant Name Role Phone BONITA HELMS Primary Care [...] Mueller's Name Patient's Relationship to Policy Mueller [facility] MEDICARE SUPPLEMEN MEGHANA MEDEX ANDRY E Mar 12, 2016 [id number] PRIYANK TURPIN SEPH PATIENT MEDICARE (WNR) MEDICARE (M) PART B May 10, 2004 PART B [id number] PRIYANK TURPIN SEPH PATIENT MEDICARE (WNR) MEDICARE (M) PART B May 10, 2004 PART B [id number] PRIYANK TURPIN SEPH PATIENT MEDICARE (WNR) MEDICARE (M) PART A July 10, 1997 PART A [id number] PRIYANK TURPIN PATIENT MEDICARE (WNR) MEDICARE (M) PART A July 10, 1997 PART A [id number] [facility] PRIYANK TURPIN PATIENT Selected Encounter This section includes the information on record at [place] for the Encounter. Date/Time Encounter Type Encounter Description Reason Provider Source Jun 11, 2023 10:30 AM OFFICE O/P EST LOW 20 MIN PRIMARY CARE/MEDICINE ICD-10-CM K86.1 Other chronic pancreatitis YENI PUENTES Encounter Template Text not used by [place] Assessments - Encounter Diagnoses This section includes the primary and secondary diagnoses documented for the Encounter. Date/Time Primary/Secondary Diagnosis Diagnosis Name Provider Source Jun 28, 2023 01:20 PM PRIMARY Other chronic pancreatitis YENI PUENTES Jun 28, 2023 01:20 PM SECONDARY Hypertensive heart disease without heart failure YENI PUENTES Jun 28, 2023 01:20 PM SECONDARY Type 1 diabetes mellitus with hyperglycemia YENI PUENTES Plan of Treatment: Future Appointments (+ 6 months) and Future Tests (+/- 45 days) The Plan of Treatment section includes future care activities for the patient from all [place] treatmentfacilities. This section includes future appointments and future orders which are active, pending or scheduled. Future Appointments This section includes appointments that were scheduled to occur 6 months from the date of the Encounter, up to a maximum of 20 appointments. The data comes from all [place] treatment facilities. Appointment Date/Time Appointment Type Appointme nt Facility Name Jul 06, 2023 11:30 AM AMBULATORY - REHAB [facility] Sep 21, 2023 10:30 AM AMBULATORY - REHAB [facility] Oct 16, 2023 10:00 AM [facility] Nov 27, 2023 11:00 AM [facility] [place] [facility] Nov 28, 2023 10:30 AM AMBULATORY - [place]ICINE [place] [facility] [place] [facility] Nov 28, 2023 11:30 AM AM[place]UL[place]ORY - [place] [facility] [place] [facility] Nov 28, 2023 11:45 AM [facility] [place] [facility] Lab Results: +/- 30 days of the encounter This section includes the Chemistry and Hematology Lab Results on record with [place] for the patient. Radiology Reports and Pathology Reports are provided separately, in subsequent sections. Lab Results This section contains the Chemistry/Hematology Results that were resulted 30 days before or 30 daysafter the date of the Encounter. Date/Time Source Result Type Result - Unit Interpretation Reference Range Comment Jun 07, 2023 09:47 AM [facility] MICROSCOPIC AUTOMATED, URINE Specimen Type: URINE Comment: If Glucose = >500 and Ketones are positive, please alert the Physician. Ordering Provider: YENI PUENTES Report Released Date/Time: Nov 06, 2022 03:06 PM Reporting [facility] [address] [facility] [address] Performing Lab: [address] [address] UA WBC 6-10 /[HPF] H 0-5 UA MUCUS FEW /[LPF] Trace UA CALCIUM OXALATE CRYSTALS FEW /[HPF] Not Established UA RBC 0-2 /[HPF] 0-3 Jun 07, 2023 09:47 AM [facility] VITAMIN B12 Specimen Type: SERUM No comment entered. Ordering Provider: YENI PUENTES Report Released Date/Time: Nov 06, 2022 03:06 PM Reporting Lab: [facility] [address] [facility] [address] Performing Lab: [address] [address] VITAMIN B12 586 pg/mL 200-900 Jun 07, 2023 09:47 AM [facility] AMYLASE Specimen Type: SERUM No comment entered. Ordering Provider: YENI PUENTES Report Released Date/Time: Nov 06, 2022 03:06 PM Reporting Lab: [facility] [address] [facility] [address] Performing Lab: [address] [address] AMYLASE 40 U/L 25-125 Jun 07, 2023 09:47 AM [facility] RETICULOCYTES Specimen Type: BLOOD No comment entered. Ordering Provider: YENI PUENTES Report Released Date/Time: Nov 06, 2022 03:06 PM Reporting Lab: [address] [address] Performing Lab: [facility] [address] [address] RETIC % 1.1 0.6-2.0 RETIC, ABS 48.5 10*3/uL 30.0-90.0 Ret-He % 32.2 27.9-42.0 Jun 07, 2023 09:47 AM [facility] LIPASE Specimen Type: SERUM No comment entered. Ordering Provider: YENI PUENTES Report Released Date/Time: Nov 06, 2022 03:06 PM Reporting Lab: [address] [address] Performing Lab: [address] [address] LIPASE 12 U/L 8-82 Jun 07, 2023 09:47 AM [facility] LIVER FUNCTION Specimen Type: SERUM No comment entered. Ordering Provider: YENI PUENTES Report Released Date/Time: Nov 06, 2022 03:06 PM Reporting Lab: [address] [address] Performing Lab: [address] [address] PROTEIN,TOTAL 6.3 g/dL 6.0-8.3 ALBUMIN 3.7 g/dL 3.5-5.0 ALKALINE PHOSPHATASE 138 U/L 40-150 AST 65 U/L H 5-34 ALT 54 U/L BILIRUBIN, TOTAL 0.4 mg/dL 0.2-1.2 Jun 07, 2023 09:47 AM [facility] BASIC METABOLIC PANEL (fasting) Specime n Type: SERUM No comment entered. Ordering Provider: YENI PUENTES Report Released Date/Time: Nov 06, 2022 03:06 PM Reporting Lab: [address] [address] Performing Lab: [address] [address] UREA NITROGEN 23 mg/dL 7-25 GLUCOSE 227 mg/dL H 65-100 SODIUM 140 mmol/L 135-145 POTASSIUM 4.0 mmol/L 3.5-5.0 CHLORIDE 108 mmol/L 100-110 CO2 23 meq/L 20-30 CREATININE, Serum 1.18 mg/dL 0.50-1.40 eGFR(CKD-EPI 2020) 61 mL/min >60 Jun 07, 2023 09:47 AM [facility] URINALYSIS Specimen Type: URINE Comment: If Glucose = >500 and Ketones are positive, please alert the Physician. Ordering Provider: YENI PUENTES Report Released Date/Time: Nov 06, 2022 03:06 PM Reporting Lab: [address] [address] Performing Lab: [address] [address] UA COLOR Light-Yellow Yellow UA APPEARANCE Clear Clear UA GLUCOSE 200 mg/dL Negative UA KETONES NEGATIVE mg/dL Negative UA BLOOD NEGATIVE mg/dL Negative UA PROTEIN 70 mg/dL Negative UA NITRITE NEGATIVE mg/dL Negative UA BILIRUBIN NEGATIVE mg/dL Negative UA SPECIFIC GRAVITY 1.017 1.016-1.022 UA pH 6.0 5.0-9.0 UA UROBILINOGEN <2.0 mg/dL <2.0 UA LEUKOCYTE SMALL Negative Jun 07, 2023 09:47 AM [facility] CALCIUM Specimen Type: SERUM No comment entered. Ordering Provider: YENI PUENTES Report Released Date/Time: Nov 06, 2022 03:06 PM Reporting Lab: [address] [address] Performing Lab: [address] [address] CALCIUM 8.0 mg/dL L 8.5-10.2 Jun 07, 2023 09:47 AM [facility] LIPID PANEL FASTING Specimen Type: SERUM No comment entered. Ordering Provider: YENI PUENTES Report Released Date/Time: Nov 06, 2022 03:06 PM Reporting Lab: [address] [address] Performing Lab: [address] [address] CHOLESTEROL 108 mg/dL TRIGLYCERIDE 134 mg/dL 0-150 LDL calculated 58 mg/dL 0-129 CHOL/HDL 4.7 HDL CHOLESTEROL 23 mg/dL L 40-60 Jun 07, 2023 09:47 AM [facility] URIC ACID Specimen Type: SERUM No comment entered. Ordering Provider: YENI PUENTES Report Released Date/Time: Nov 06, 2022 03:06 PM Reporting Lab: [facility] [address] [address] Performing Lab: [facility] [address] [address] URIC ACID 4.7 mg/dL 3.5-7.2 Jun 07, 2023 09:47 AM [facility] HEMOGLOBIN A1C PANEL Specimen Type: BLOOD Comment: Values obtained from A1C measurements can vary. For atypical A1C assays, a reported value of 7.0 could actually be between 6.72 and 7.28 if measured by a reference method. A reported value of 9.0 could actually be between 8.73 and 9.27. Ref: http://www.ng sp.org/CAPdat a.asp Ordering Provider: YENI PUENTES Report Released Date/Time: Nov 06, 2022 03:06 PM Reporting Lab: [facility] [address] [address] Performing Lab: [facility] [address] HEMOGLOBIN A1C 9.8 H 4.0-5.6 Jun 07, 2023 09:47 AM [facility] FERRITIN Specimen Type: SERUM No comment entered. Ordering Provider: YENI PUENTES Report Released Date/Time: Nov 06, 2022 03:06 PM Reporting Lab: [facility] [address] [address] Performing Lab: [facility] [address] [address] FERRITIN 66 ng/mL 20-300 Jun 07, 2023 09:47 AM [facility] TSH Specimen Type: SERUM No comment entered. Ordering Provider: YENI PUENTES Report Released Date/Time: Nov 06, 2022 03:06 PM Reporting Lab: [facility] [address] [address] Performing Lab: [facility] [address] TSH 4.17 u[IU]/mL 0.35-5.00 Jun 07, 2023 09:47 AM [facility] PSA Specimen Type: SERUM No comment entered. Ordering Provider: YENI PUENTES Report Released Date/Time: Nov 06, 2022 03:06 PM Reporting Lab: [address] [address] Performing Lab: [address] [address] PSA 1.01 ng/mL 0.00-4.00 Jun 07, 2023 09:47 AM [facility] MICROALBUMIN CREATININE RATIO PANEL Spe cimen Type: URINE No comment entered. Ordering Provider: YENI PUENTES Report Released Date/Time: Nov 06, 2022 03:06 PM Reporting Lab: [address] [address] Performing Lab: [address] [address] MICROALBUMIN/C REATININE RATIO 452.0 mg/g H 0-29.9 MICROALBUMIN,Q UANTITATIVE 47.3 mg/dL RR UNAVAIL CREATININE URINE 104.65 mg/dL Jun 07, 2023 09:47 AM [facility] CBC AND DIFF (AUTO) Specimen Type: BLOOD No comment entered. Ordering Provider: YENI PUENTES Report Released Date/Time: Nov 06, 2022 03:06 PM Reporting Lab: [address] [address] Performing Lab: [address] [address] WBC 5.67 10*3/uL 4.50-11.00 RBC 4.58 10*6/uL 4.23-5.66 HGB 13.0 g/dL 12.8-17 HCT 40.5 39.2-50.4 MCV 88.4 fL 82-99 MCHC 32.1 g/dL 30.8-35.1 PLT 161 10*3/uL 140-360 RDW-CV 14.2 12.0-16.0 [place], Abs 0.61 10*3/uL 0.30-1.10 MCH 28.4 pg 26.2-32.6 Neut % 63.4 43.7-75.8 Lymph % 21.7 14.0-42.3 [place] % 10.8 5.1-13.7 Eos % 3.0 0.4-6.8 Baso % 0.7 0.1-2.0 Neut, Abs 3.60 10*3/uL 2.20-7.60 Lymph, Abs 1.23 10*3/uL 1.00-3.20 Eos, Abs 0.17 10*3/uL 0.03-0.44 Baso, Abs 0.04 10*3/uL 0.01-0.13 Immature Gran % 0.4 0.0-0.7 Immature Gran, Abs 0.02 10*3/uL 0.00-0.06 Vital Signs: All taken on the encounter date This section contains inpatient and outpatient Vital Signs collected on the date of the Encounter. Date/Time Temperature Pulse Blood Pressure Respiratory Rate SP02 Pain Height Weight Body Mass Index Source Jun 11, 2023 10:52 AM 140/72 [facility] Jun 11, 2023 10:32 AM 147/72 [facility] Jun 11, 2023 10:32 AM 97.5 78 152/70 94 159.2 25 [facility] Social History: Smoking Status (Most current) and Tobacco Use (All prior to encounter date) This section includes the most current, and the historical, smoking and tobacco- related health factors from the [place] facility where the Encounter took place. Current Smoking Status This section includes the most current smoking, or tobacco-related health factor, from the [place] facility where the Encounter took place. Date/Time Current Smoking Status Comment Facil ity Jun 11, 2023 10:30 AM VA-TOBACCO FORMER USER [facility] Tobacco Use History This section includes a history of the smoking, or tobacco-related health factors, that were collected on or before the date of the Encounter. The data comes from the [place] facility where the Encounter took place. Date/Time Smoking Status/Tobacco Use Comment F acility Jun 11, 2023 10:30 AM VA-TOBACCO QUIT 15 YRS OR MORE [facility] Feb 18, 2021 01:30 PM VA-TOBACCO NEVER USED [facility] Jan 13, 2020 10:00 AM VA-TOBACCO NEVER USED [facility] May 09, 2017 11:00 AM QUIT TOBACCO USE > 7 YEARS AGO does not smoke [facility] July 18, 2016 10:35 AM LIFETIME NON-TOBACCO USER [facility] May 11, 2015 10:13 AM QUIT TOBACCO USE > 7 YEARS AGO [facility] Jan 27, 2005 09:24 AM HISTORY OF SMOKING 1986 [facility] Feb 23, 2004 02:53 PM HISTORY OF SMOKING stopped tobacco 17 years ago [facility] Feb 23, 2004 02:53 PM QUIT TOBACCO USE > 7 YEARS AGO stopped tobacco 17 years ago [facility] Feb 14, 2001 09:55 AM HISTORY OF SMOKING [facility] Feb 14, 2001 09:55 AM NON-TOBACCO USER quit x 14yrs. [facility] Advance Directives: All historical and current Section Date Range: From patient's date of to the date document was created. This section includes ALL of a patient's completed or amended [place] Advance and Rescinded Directives. The entries below indicate that a directive exists for the patient, but an actual copy is not included with this document. The data comes from all [place] facilities. Date Advance Directives Provider Source Jun 28, 2009 ADVANCE DIRECTIVE MANUELITO MORELOS Encounter Notes: All associated encounter notes This section contains the clinical notes associated to the Encounter. Date/Time Encounter Note(s) Provider Source Aug 22, 2023 09:54 AM ACCOUNTING OF DISC LOSURES NOTE: LOCAL TITLE: STATE PRESCRIPTION DRUG MONITORING PROGRAM (SPDMP) STANDARD TITLE: ACCOUNTING OF DISCLOSURES NOTE DATE OF NOTE: AUG 22, 2023@09:54 ENTRY DATE: AUG 22, 2023@09:56 AUTHOR: FREDERICK URIBE EXP COSIGNER: URGENCY: STATUS: COMPLETED State Prescription Drug Monitoring Program (SPDMP) Review The following [facility] Prescription Drug Monitoring Program was queried for this patient: [place] Report Number: Report Prepared: 08/22/2023 Date Range: 08/21/2022 - 08/22/2023 The purpose of this query was a part of the medication reconciliation process for the: Renewal of a controlled substance prescription. The findings of the query are as follows: No duplicate therapy prescriptions for controlled substances outside the [facility] were found. PDMP QUERY IN CPRS NOT WORKING /devon/ Frederick Uribe RN Registered Nurse (RN) Signed: 08/22/2023 09:59 FREDERICK URIBE July 27, 2023 09:49 AM MEDICATION MGT NOT E: LOCAL TITLE: OUTPATIENT MEDICATION REQUEST STANDARD TITLE: MEDICATION MGT NOTE DATE OF NOTE: JULY 27, 2023@09:49 ENTRY DATE: JULY 27, 2023@09:49:11 AUTHOR: FREDERICK URIBE EXP COSIGNER: URGENCY: STATUS: COMPLETED Medication Request Date of Request: July Is this a New Medication? No Renew for Mail HYDROCODONE 5MG/APAP 325MG TAB HYDROCODONE 5MG/ACETAMINOPHEN 325MG TAB TAKE 1 TABLET BY MOUTH THREE TIMES DAILY NEEDED FOR PAIN NEXT FILL 05/24/23 Quantity: 84 Refills: 0 Indication: FOR PAIN 5 ZOLPIDEM TARTRATE TAB 10MG TAKE ONE TABLET BY MOUTH BEDTIME NEEDED FOR SLEEP Quantity: 30 Refills: 0 Indication: FOR SLEEP /es/ Frederick Uribe RN Registered Nurse (RN) Signed: 07/27/2023 09:49 Receipt Acknowledged By: 07/30/2023 08:30 /devon/ YENI PUENTES PA-C STAFF PHYSICIAN MUSIC INTERN FREDERICK URIBE [facility] July 27, 2023 09:48 AM PAIN MEDICATION MG T NOTE: LOCAL TITLE: OPIOID/CONTROLLED SUBSTANCE NOTE STANDARD TITLE: PAIN MEDICATION MGT NOTE DATE OF NOTE: JULY 27, 2023@09:48 ENTRY DATE: JULY 27, 2023@09:48:20 AUTHOR: FREDERICK URIBE EXP COSIGNER: URGENCY: STATUS: COMPLETED OPIOID/CONTROLLED SUBSTANCE NOTE Controlled Substance Renewal Request REQUESTED MEDICATIONS: HYDROCODONE 5MG/APAP 325MG TAB ZOLPIDEM TARTRATE TAB 10MG MAIL TO PATIENT A valid consent for Long-Term Opioid therapy for Pain is required for opioid duration of 90 days or greater. CONSENT FOR LONG-TERM OPIOIDS FOR PAIN July 31, 2022 Prescription Drug Monitoring Program (PDMP): A PDMP note is required at every new prescription for a controlled substance. PDMP HISTORY 1 YEAR Info Disclosed: Patient Demographics Purpose: Accessing Prescription Drug Monitoring Program (PDMP) databases for review of controlled substances prescribed outside of the VA, and any additional information that may become available, as an important component of standard clinical care and in accordance with [facility] policy. 07/27/22 13:19 Frederick Uribe PDMP [facility] [place] 08/24/22 10:53 Frederick Uribe PDMP [facility] [place] 08/24/22 10:54 Frederick Uribe PDMP [facility] [place] 08/24/22 13:09 Frederick Uribe PDMP [facility] [place] 09/19/22 10:06 Puentes,Yeni PA PDMP [facility] [place] 10/24/22 08:49 [place],Frederick N PDMP [facility] [place] 11/06/22 15:15 PuentesYeni herrera PDMP [facility] [place] 12/05/22 16:03 Murray,Frederick N PDMP [facility] [place] 01/01/23 15:00 [place],Frederick N PDMP [facility] [place] 02/19/23 10:21 Murray,Frederick N PDMP [facility] [place] 03/22/23 15:33 Murray,Frederick N PDMP [facility] [place] 03/28/23 15:55 Murray,Frederick N PDMP [facility] [place] 04/25/23 16:01 [place],Frederick N PDMP [facility] [place] 05/22/23 10:14 [place],Frederick N PDMP [facility] [place] 07/27/23 09:46 [place],Frederick N PDMP [facility] [place] Urine Drug Screen: A urine drug screen is required prior to reaching 90 days of opioid therapy and at least annually thereafter. Collection DT Specimen Test Name Result Units Ref Range 05/01/2023 09:22 URINE !! OPIATES SCREEN POSITIVE H* Ref: None-Detected, Cutoff = 300 ng/mL 05/01/2023 09:22 URINE !! OXYCODONE SCREEN NONE-DETECTED Ref: None-Detected, Cutoff = 100 ng/mL 05/01/2023 09:22 URINE !! METHADONE SCREEN None detected(Negative) LRef: Negative 05/01/2023 09:22 URINE !! BenzoSc NONE-DETECTED Ref: None-Detected, Cutoff = 200 ng/mL 05/01/2023 09:22 URINE !! COCAINE SCREEN NONE-DETECTED Ref: None-Detected,Cutoff = 300 ng/mL 05/01/2023 09:22 URINE !! CANNABINOIDS SCRENONE-DETECTED Ref: None-Detected,Cutoff = 50 ng/mL 05/01/2023 09:22 URINE !! ALCOHOL, ETHYL URNONE-DETECTED mg/dL Ref: NONE-DETECTED, cutoff = 10 mg/dL 05/01/2023 09:22 URINE !! AMPHETAMINES SCRENONE-DETECTED Ref: None-Detected, Cutoff = 1000 ng/mL 05/01/2023 09:22 URINE !! BupreUr NONE-DETECTED Ref: None Detected, Cutoff = 10.0 ng/mL !! Indicates COMMENTS AVAILABLE...Refer to Interim Lab Report. Most Recent Naloxone Prescription Information: Reminder Term: VA-NALOXONE USE Drug: NALOXONE HCL 4MG/SPRAY SOLN NASAL SPRAY Outpatient Medication: NALOXONE HCL 4MG/SPRAY SOLN NASAL SPRAY 09/22/2022@17:20:37 Status: Start date: 09/21/2022@17:20:37 Stop date: 09/22/2022@17:20:37 Duration: 1 D Last release date: 09/21/2022@17:20:37 Days supply: 1 /devon/ Frederick Uribe RN Registered Nurse (RN) Signed: 07/27/2023 09:50 FREDERICK URIBE July 27, 2023 09:47 AM ACCOUNTING OF DISC LOSURES NOTE: LOCAL TITLE: STATE PRESCRIPTION DRUG MONITORING PROGRAM STANDARD TITLE: ACCOUNTING OF DISCLOSURES NOTE DATE OF NOTE: JULY 27, 2023@09:47:58 ENTRY DATE: JULY 27, 2023@09:47:58 AUTHOR: FREDERICK URIBE EXP COSIGNER: YENI PUENTES URGENCY: STATUS: COMPLETED This PDMP query was submitted by Frederick Uribe on behalf of Yeni Puentes. The clinical justification for this PDMP query is to review controlled substances prescribed outside of the VA, and any additional information that may become available, as an important component of standard clinical care, and in accordance with [facility] policy. Patient information was shared with the PDMP [facility] [place]. The VA prescriber, for which I am a delegate, will be alerted of these PDMP findings through co-signature of this progress note. No prescription(s) for controlled substances outside the VA were found in the last 90 days. 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 Request PCP enter [facility] consult if in agreement, we can screen to see if appropriate. Thank you! /devon/ Dalton Trinidad RN [facility] senior telecommunications technician Signed: 07/14/2023 13:57 Receipt Acknowledged By: 07/16/2023 08:52 /es/ Frederick Uribe RN Registered Nurse (RN) 07/16/2023 09:14 /es/ YENI PUENTES PA-C STAFF PHYSICIAN MUSIC INTERN ====== --- Original Document --- 06/11/23 SHIRIN NOTE: S - routine re-eval O - coop A&Ox3 NAD W-N/H/D HEENT: benign NECK: no bruits not tender and no adeno LUNGS: resp full reg unlabored; CTA b/l COR: RRR, no M ABD: multiple ventral hernias no tender EXT: Shldrs: decreased ROM on aBd and ext secondary to pain) Knee (L): knee in fixed extension LABS: reviewed w/ pt A/P - 1) RC Tears, Both Shldr's - has seen ANGELINA as of MAR 03 - surg offered; he declines - self-care, but not much he can really do to mitigate pain or enhance mobility of either shldr - tried PT already; he does not wish any more therapy 2) s/p TKR, 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 The score was 0 which is a negative screen for depression. Over the past two weeks, how often have you been bothered by the following problems? 1. Little interest or pleasure in doing things Not at all 2. Feeling down, depressed, or hopeless Not at all Homelessness/Food Insecurity Screen: In the past 2 months, have you been living in stable housing that you own, rent, or stay in as part of a household? Yes - Living in stable housing. Are you worried or concerned that in the next 2 months you may NOT have stable housing that you own, rent, or stay in as part of a household? No - Not worried about housing near future The reports the following: Within the past 12 months, you worried whether your food would run out before you got money to buy more. Never true Within the past 12 months, the food you bought just didn't last and you didn't have money to get more. Never true Tobacco Use Screening: The patient is a former tobacco user. The patient quit fifteen or more years ago. Alcohol Use Screen (AUDIT-C): Alcohol Screen: SCREEN FOR ALCOHOL (AUDIT-C) An alcohol screening test (AUDIT-C) was negative (score=0). 1. How often did you have a drink containing alcohol in the past year? Consider a drink to be a 12 ounce can or bottle of regular beer, 8 ounces of malt liquor, a 5 ounce glass of table wine, or a 1.5 ounce shot of liquor (like scotch, gin, or vodka). Never 2. How many drinks containing alcohol did you have on a typical day when you were drinking in the past year? Response not required due to responses to other questions. 3. How often did you have six or more drinks on one occasion in the past year? Response not required due to responses to other questions. Medication Reconciliation: Outpatient: Has the patient been taking medications as documented in the EMLR? YES: The patient has been taking medications as documented in the EMLR. Essential Medication List for Review used to complete this medication reconciliation. INCLUDED IN THIS LIST: Alphabetical list of active outpatient prescriptions dispensed from this [place] (local) and dispensed from another VA or DoD facility (remote) as well as inpatient orders (local, pending and active), local clinic medications, locally documented non-VA medications, and local prescriptions that have or been discontinued in the past 90 days. - All changes in medications, including all non-VA/Herbal/OTC medications were entered into CPRS. Changes: nt - If there were any medications the patient should no longer take, they were discontinued. - The patient/caregiver was instructed to update this list, discard old lists, and take this list to the next appointment, whether with a VA or non-VA provider. Sexual Orientation: The patient thinks of their sexual orientation as: Straight or Heterosexual /hilton PUENTES PA-C STAFF PHYSICIAN MUSIC INTERN Signed: 06/11/2023 13:51 06/11/2023 ADDENDUM STATUS: COMPLETED type one diabetic a1c 9.8 uses insulin pump -- novolog i just worry increased serum glucise and a1c causing kidney failure please eval pt. does he need second agent? /devon/ YENI PUENTES PA-C STAFF PHYSICIAN MUSIC INTERN Signed: 06/11/2023 13:53 Receipt Acknowledged By: 06/11/2023 13:55 /hilton Ayers PharmD Clinical Pharmacy Practitioner 06/11/2023 ADDENDUM STATUS: COMPLETED Non-insulin agents are not recommended for Type 1 diabetics. Pharmacy clinic also unable to manage patients on insulin pump or with T1DM. Will ask PCP to please consider endocrine consult. Thank you. /hilton Ayers PharmD Clinical Pharmacy Practitioner Signed: 06/11/2023 13:56 Receipt Acknowledged By: 06/11/2023 14:24 /devon/ YENI PUENTES PA-C STAFF PHYSICIAN MUSIC INTERN [place] Jun 21, 2023 11:02 AM MEDICATION MGT NOT E: LOCAL TITLE: OUTPATIENT MEDICATION REQUEST STANDARD TITLE: MEDICATION MGT NOTE DATE OF NOTE: JUN 21, 2023@11:02 ENTRY DATE: JUN 21, 2023@11:02:05 AUTHOR: FREDERICK URIBE COSIGNER: URGENCY: STATUS: COMPLETED Medication Request Date of Request: Jun Is this a New Medication? No STATES HE LAST GOT AT [facility], HOWEVER WOULD LIKE TO OBTAIN FROM [place] [facility] if appropriate CARBOXYMETHYLCELLULOSE 0.5% SOLN,OPH 0.5% INSTILL ONE DROP INTO EACH EYE FOUR TIMES A DAY Quantity: 15 Refills: / Frederick Uribe RN Registered Nurse (RN) Signed: 06/21/2023 11:05 Receipt Acknowledged By: 06/21/2023 11:24 /es/ ANUPAMA COONEY OD Insole Reinforcer FREDERICK URIBE Jun 11, 2023 01:55 PM ADDENDUM: LOCAL TITLE: Addendum STANDARD TITLE: ADDENDUM DATE OF NOTE: JUN 11, 2023@13:55:52 ENTRY DATE: JUN 11, 2023@13:55:53 AUTHOR: KWADWO AYERS COSIGNER: URGENCY: STATUS: COMPLETED Non-insulin agents are not recommended for Type 1 diabetics. Pharmacy clinic also unable to manage patients on insulin pump or with T1DM. Will ask PCP to please consider endocrine consult. Thank you. /devon/ Kwadwo Ayers PharmD Clinical Pharmacy Practitioner Signed: 06/11/2023 13:56 Receipt Acknowledged By: 06/11/2023 14:24 /devon/ YENI PUENTES PA-C STAFF PHYSICIAN MUSIC INTERN ====== --- Original Document --- 06/11/23 SHIRIN NOTE: S - routine re-eval O - coop A&Ox3 NAD W-N/H/D HEENT: benign NECK: no bruits not tender and no adeno LUNGS: resp full reg unlabored; CTA b/l COR: RRR, no M ABD: multiple ventral hernias no tender EXT: Shldrs: decreased ROM on aBd and ext secondary to pain) Knee (L): knee in fixed extension LABS: reviewed w/ pt A/P - 1) RC Tears, Both Shldr's - has seen ANGELINA as of MAR 03 - surg offered; he declines - self-care, but not much he can really do to mitigate pain or enhance mobility of either shldr - tried PT already; he does not wish any more therapy 2) s/p TKR, 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 The score was 0 which is a negative screen for depression. Over the past two weeks, how often have you been bothered by the following problems? 1. Little interest or pleasure in doing things Not at all 2. Feeling down, depressed, or hopeless Not at all Homelessness/Food Insecurity Screen: In the past 2 months, have you been living in stable housing that you own, rent, or stay in as part of a household? Yes - Living in stable housing. Are you worried or concerned that in the next 2 months you may NOT have stable housing that you own, rent, or stay in as part of a household? No - Not worried about housing near future The [place] reports the following: Within the past 12 months, you worried whether your food would run out before you got money to buy more. Never true Within the past 12 months, the food you bought just didn't last and you didn't have money to get more. Never true Tobacco Use Screening: The patient is a former tobacco user. The patient quit fifteen or more years ago. Alcohol Use Screen (AUDIT-C): Alcohol Screen: SCREEN FOR ALCOHOL (AUDIT-C) An alcohol screening test (AUDIT-C) was negative (score=0). 1. How often did you have a drink containing alcohol in the past year? Consider a drink to be a 12 ounce can or bottle of regular beer, 8 ounces of malt liquor, a 5 ounce glass of table wine, or a 1.5 ounce shot of liquor (like scotch, gin, or vodka). Never 2. How many drinks containing alcohol did you have on a typical day when you were drinking in the past year? Response not required due to responses to other questions. 3. How often did you have six or more drinks on one occasion in the past year? Response not required due to responses to other questions. Medication Reconciliation: Outpatient: Has the patient been taking medications as documented in the EMLR? YES: The patient has been taking medications as documented in the EMLR. Essential Medication List for Review used to complete this medication reconciliation. INCLUDED IN THIS LIST: Alphabetical list of active outpatient prescriptions dispensed from this [place] (local) and dispensed from another [place] or [facility] facility (remote) as well as inpatient orders (local, pending and active), local clinic medications, locally documented non-VA medications, and local prescriptions that have or been discontinued in the past 90 days. - All changes in medications, including all non-VA/Herbal/OTC medications were entered into CPRS. Changes: nt - If there were any medications the patient should no longer take, they were discontinued. - The patient/caregiver was instructed to update this list, discard old lists, and take this list to the next appointment, whether with a VA or non-VA provider. Sexual Orientation: The patient thinks of their sexual orientation as: Straight or Heterosexual /devon/ YENI PUENTES PA-C STAFF PHYSICIAN MUSIC INTERN Signed: 06/11/2023 13:51 06/11/2023 ADDENDUM STATUS: COMPLETED type one diabetic a1c 9.8 uses insulin pump -- novolog i just worry increased serum glucise and a1c causing kidney failure please eval pt. does he need second agent? /devon/ YENI PUENTES PA-C STAFF PHYSICIAN MUSIC INTERN Signed: 06/11/2023 13:53 Receipt Acknowledged By: 06/11/2023 13:55 /devon/ Kwadwo Ayers PharmD Clinical Pharmacy Practitioner KWADWO AYERS Jun 11, 2023 01:51 PM ADDENDUM: LOCAL TITLE: Addendum STANDARD TITLE: ADDENDUM DATE OF NOTE: JUN 11, 2023@13:51:08 ENTRY DATE: JUN 11, 2023@13:51:09 AUTHOR: YENI PUENTES EXP COSIGNER: URGENCY: STATUS: COMPLETED type one diabetic a1c 9.8 uses insulin pump -- novolog i just worry increased serum glucise and a1c causing kidney failure please eval pt. does he need second agent? /devon/ YENI PUENTES PA-C STAFF PHYSICIAN MUSIC INTERN Signed: 06/11/2023 13:53 Receipt Acknowledged By: 06/11/2023 13:55 /devon/ Kwadwo Ayers, Lexi Clinical Pharmacy Practitioner ====== --- Original Document --- 06/11/23 SHIRIN NOTE: S - routine re-eval O - coop A&Ox3 NAD W-N/H/D HEENT: benign NECK: no bruits not tender and no adeno LUNGS: resp full reg unlabored; CTA b/l COR: RRR, no M ABD: multiple ventral hernias no tender EXT: Shldrs: decreased ROM on aBd and ext secondary to pain) Knee (L): knee in fixed extension LABS: reviewed w/ pt A/P - 1) RC Tears, Both Shldr's - has seen ANGELINA as of MAR 03 - surg offered; he declines - self-care, but not much he can really do to mitigate pain or enhance mobility of either shldr - tried PT already; he does not wish any more therapy 2) s/p TKR, 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 The score was 0 which is a negative screen for depression. Over the past two weeks, how often have you been bothered by the following problems? 1. Little interest or pleasure in doing things Not at all 2. Feeling down, depressed, or hopeless Not at all Homelessness/Food Insecurity Screen: In the past 2 months, have you been living in stable housing that you own, rent, or stay in as part of a household? Yes - Living in stable housing. Are you worried or concerned that in the next 2 months you may NOT have stable housing that you own, rent, or stay in as part of a household? No - Not worried about housing near future The reports the following: Within the past 12 months, you worried whether your food would run out before you got money to buy more. Never true Within the past 12 months, the food you bought just didn't last and you didn't have money to get more. Never true Tobacco Use Screening: The patient is a former tobacco user. The patient quit fifteen or more years ago. Alcohol Use Screen (AUDIT-C): Alcohol Screen: SCREEN FOR ALCOHOL (AUDIT-C) An alcohol screening test (AUDIT-C) was negative (score=0). 1. How often did you have a drink containing alcohol in the past year? Consider a drink to be a 12 ounce can or bottle of regular beer, 8 ounces of malt liquor, a 5 ounce glass of table wine, or a 1.5 ounce shot of liquor (like scotch, gin, or vodka). Never 2. How many drinks containing alcohol did you have on a typical day when you were drinking in the past year? Response not required due to responses to other questions. 3. How often did you have six or more drinks on one occasion in the past year? Response not required due to responses to other questions. Medication Reconciliation: Outpatient: Has the patient been taking medications as documented in the EMLR? YES: The patient has been taking medications as documented in the EMLR. Essential Medication List for Review used to complete this medication reconciliation. INCLUDED IN THIS LIST: Alphabetical list of active outpatient prescriptions dispensed from this [facility] (local) and dispensed from another VA or [facility] facility (remote) as well as inpatient orders (local, pending and active), local clinic medications, locally documented non-VA medications, and local prescriptions that have or been discontinued in the past 90 days. - All changes in medications, including all non-VA/Herbal/OTC medications were entered into CPRS. Changes: nt - If there were any medications the patient should no longer take, they were discontinued. - The patient/caregiver was instructed to update this list, discard old lists, and take this list to the next appointment, whether with a VA or non-VA provider. Sexual Orientation: The patient thinks of their sexual orientation as: Straight or Heterosexual /es/ YENI PUENTES PA-C STAFF PHYSICIAN MUSIC INTERN Signed: 06/11/2023 13:51 YENI PUENTES Jun 11, 2023 10:27 AM PHYSICIAN ASSISTSTANISLAV T NOTE: LOCAL TITLE: SHIRIN NOTE STANDARD TITLE: PHYSICIAN MUSIC INTERN NOTE DATE OF NOTE: JUN 11, 2023@10:27 ENTRY DATE: JUN 11, 2023@10:27:46 AUTHOR: YENI PUENTES EXP COSIGNER: URGENCY: STATUS: COMPLETED SHIRIN NOTE Has ADDENDA S - routine re-eval O - coop A&Ox3 NAD W-N/H/D HEENT: benign NECK: no bruits not tender and no adeno LUNGS: resp full reg unlabored; CTA b/l COR: RRR, no M ABD: multiple ventral hernias no tender EXT: Shldrs: decreased ROM on aBd and ext secondary to pain) Knee (L): knee in fixed extension LABS: reviewed w/ pt A/P - 1) RC Tears, Both Shldr's - has seen ANGELINA as of MAR 03 - surg offered; he declines - self-care, but not much he can really do to mitigate pain or enhance mobility of either shldr - tried PT already; he does not wish any more therapy 2) s/p TKR, 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 The score was 0 which is a negative screen for depression. Over the past two weeks, how often have you been bothered by the following problems? 1. Little interest or pleasure in doing things Not at all 2. Feeling down, depressed, or hopeless Not at all Homelessness/Food Insecurity Screen: In the past 2 months, have you been living in stable housing that you own, rent, or stay in as part of a household? Yes - Living in stable housing. Are you worried or concerned that in the next 2 months you may NOT have stable housing that you own, rent, or stay in as part of a household? No - Not worried about housing near future The reports the following: Within the past 12 months, you worried whether your food would run out before you got money to buy more. Never true Within the past 12 months, the food you bought just didn't last and you didn't have money to get more. Never true Tobacco Use Screening: The patient is a former tobacco user. The patient quit fifteen or more years ago. Alcohol Use Screen (AUDIT-C): Alcohol Screen: SCREEN FOR ALCOHOL (AUDIT-C) An alcohol screening test (AUDIT-C) was negative (score=0). 1. How often did you have a drink containing alcohol in the past year? Consider a drink to be a 12 ounce can or bottle of regular beer, 8 ounces of malt liquor, a 5 ounce glass of table wine, or a 1.5 ounce shot of liquor (like scotch, gin, or vodka). Never 2. How many drinks containing alcohol did you have on a typical day when you were drinking in the past year? Response not required due to responses to other questions. 3. How often did you have six or more drinks on one occasion in the past year? Response not required due to responses to other questions. Medication Reconciliation: Outpatient: Has the patient been taking medications as documented in the EMLR? YES: The patient has been taking medications as documented in the EMLR. Essential Medication List for Review used to complete this medication reconciliation. INCLUDED IN THIS LIST: Alphabetical list of active outpatient prescriptions dispensed from this [facility] (local) and dispensed from another VA or [facility] facility (remote) as well as inpatient orders (local, pending and active), local clinic medications, locally documented non-VA medications, and local prescriptions that have or been discontinued in the past 90 days. - All changes in medications, including all non-VA/Herbal/OTC medications were entered into CPRS. Changes: nt - If there were any medications the patient should no longer take, they were discontinued. - The patient/caregiver was instructed to update this list, discard old lists, and take this list to the next appointment, whether with a VA or non-VA provider. Sexual Orientation: The patient thinks of their sexual orientation as: Straight or Heterosexual /devon/ YENI PUENTES PA-C STAFF PHYSICIAN MUSIC INTERN Signed: 06/11/2023 13:51 06/11/2023 ADDENDUM STATUS: COMPLETED type one diabetic a1c 9.8 uses insulin pump -- novolog i just worry increased serum glucise and a1c causing kidney failure please eval pt. does he need second agent? /devon/ YENI PUENTES PA-C STAFF PHYSICIAN MUSIC INTERN Signed: 06/11/2023 13:53 Receipt Acknowledged By: 06/11/2023 13:55 /devon/ Kwadwo Ayers PharmD Clinical Pharmacy Practitioner 06/11/2023 ADDENDUM STATUS: COMPLETED Non-insulin agents are not recommended for Type 1 diabetics. Pharmacy clinic also unable to manage patients on insulin pump or with T1DM. Will ask PCP to please consider endocrine consult. Thank you. 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 Request PCP enter [facility] consult if in agreement, we can screen to see if appropriate. Thank you! /devon/ Dalton Trinidad RN [facility] senior telecommunications technician Signed: 07/14/2023 13:57 Receipt Acknowledged By: * AWAITING SIGNATURE * FREDERICK URIBE * AWAITING SIGNATURE * YENI PUENTES [place]
--- OUTSIDE RECORDS SUMMARY | 2024-06-10 11:16 | XMS_ITS | Encounter Summary ---
Author Organization [facility] Address [address] [place] [address] Phone Care Team Providers Care Express Manager Name Role Phone Fidencio Johnson DO Primary Care Provider Un available William Mcghee DO Primary Care Provider [phone] Encounter Details Date Type Department Care Team (Late st Contact Info) Description 05/15/2017 Procedure Pass [facility] Periop 6th floor [address] [place] [address] Social History Tobacco Use Types Packs/Day Years Used Date Smoking Tobacco: Former Cigarettes 2 15 1 972 - 1987 Smokeless Tobacco: Never Alcohol Use Standard Drinks/Week Comments Yes 0 (1 standard drink = 0.6 oz pur e alcohol) 1 beer per week or less Sex and Gender Information Value Date Recorded Sex Assigned at Male 03/19/2017 9:29 AM EST Gender Identity Male 03/19/2017 9:29 AM EST Sexual Orientation Straight 03/19/2017 9: 29 AM EST documented as of this encounter Plan of Treatment Not on file documented as of this encounter Visit Diagnoses Not on filedocumented in this encounter Additional Health Concerns 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 as part of historical infection status reconciliation 10/16/2008 10/16/2008 05/29/19 22 1:31 AM EDT Assessment Noted Time PHQ-2 Depression Total Score: 3 08/03/19 17 11:01 AM EDT documented as of this encounter Care Teams Express Manager Relationship Specialty Start Date End Date Fidencio Johnson DO PCP - General Internal Medicine 07/19/16 06/27/17 William Mcghee DO [address] [place] [address] [address] [place] [address] PCP - General Internal Medicine 06/28/17 documented as of this encounter Additional Source Comments The information contained in this document represents components of the legal health record. It is not the complete legal health record.[facility]
--- OUTSIDE RECORDS SUMMARY | 2024-06-10 11:16 | XMS_ITS | Encounter Summary ---
Author Organization [facility] Address [address] [place] [id number] Phone Care Team Providers Care In School Suspension Aide Name Role Phone William Mcghee DO Primary Care Provider [phone] Encounter Details Date Type Department Care Team (Late st Contact Info) Description 06/28/2017 Procedure Pass [facility] Periop [address] [place] [address] Social History Tobacco Use Types Packs/Day Years [...] documented as of this encounter Care Teams In School Suspension Aide Relationship Specialty Start Date End Date William Mcghee DO [address] [place] [address] [address] [place] [address] PCP - General Internal Medicine 06/28/17 documented as of this encounter Additional Source Comments The information contained in this document represents components of the legal health record. It is not the complete legal health record.[facility]
--- OUTSIDE RECORDS SUMMARY | 2024-06-10 11:16 | XMS_ITS | Clinical Summary ---
Author Organization [facility] Address [address] [place] [address] Phone Care Team Providers Care Rehab Aid Name Role Phone William Mcghee DO Primary Care Provider [phone] [facility] Unavailable [phone] Reason for Visit and Chief Complaint Established Patient Plan of Treatment Pending Tests Order Diagnosis Results Due Ordering P ruperto Follow Up - Appointment 1 Month Contusio n of left lower leg, initial encounter 10/31/22 Sara Campa MD Last Documented On 3 9:07AM ; [facility] Assessments Includes: Assessments from this encounter No Assessments Recorded Medical Equipment - Implanted Devices Includes: Current Devices No Medical Equipment Recorded Medications Includes: Medications discussed during this encounter and other current Medications Current Medications (continue as prescribed) Hydrocodone-Acetaminophen Oral Tablet 10/31/2022 Pro vider: Diagnosis: Last Documented On 3 8:26AM By Bright Sanchez ; [facility] Medications Administered Includes: Administered Medications from this encounter No Administered Medications Recorded Vital Signs Includes: Vital Signs from this encounter Vital Name 10/31/2022 08:26A Blood Pressure Sitting (mmHg) 114/72 Pulse Rate-Sitting (bpm) 58 Temp-Temporal 97.2 Height (in) 66 Weight (lb) 157 Body Mass Index 25.3 Body Surface Area 1.8 Oxygen Saturation (%) 98 Last Documented: On 10/31/2022 8:26AM ; [facility] Results Includes: Results discussed during this encounter No Results Recorded For Specified Dates History of Present Illness Includes: History of Present Illness from this encounter No History of Present Illness Recorded Social History No Social History Recorded - Smoking Status Unknown Medical History Includes: Medical History addressed during this encounter No Medical History Recorded Family History Includes: Family History addressed during this encounter No Family History Recorded Review of Systems Includes: Review of Systems from this encounter Chief complaint Left lower leg hematoma status post inpatient stay on oct 16, 2022 HPI Patient was an inpatient because of a leg hematoma which was being treated nonoperatively. He presents today for evaluation. States the pain is improving and the swelling is improving. He is been trying to rest, ice, elevate. He is able to ambulate. He states the pain is worse when he ambulates. Physical examination There is an area of swelling which is consistent with a hematoma in the left lower leg. The area is warm to touch with some skin discoloration but no significant signs of infection including streaking. There is minimal tenderness to palpation. No significant fluctuance.Able to move his toes and his ankle and his knee without significant difficulty.There is a small area where it appears that there might have been a wound or an I&D which has now developed a scab/eschar over it Assessment plan Continue to do nonoperative management. Rest, ice, elevate. Local wound care. Weightbearing as tolerated with assistive device. Follow-up in to to 3 weeks for repeat clinical check and wound check. Consider heat versus ice. I explained to the patient and his that hematoma often takes many months to resorb. Our main goal is to provide appropriate local care and symptomatic care and prevent it from getting infected. Mental Status Includes: Mental Status from this encounter No Mental Status Recorded Functional Status Includes: Functional Status from this encounter No Functional Status Recorded Physical Exam Includes: Physical Exam from this encounter Allergies Includes: Active Allergies Substance Type Reaction Onset Date Resolved Date Statu s guaiFENesin Allergy Tingling in Fin gers/Skin Peels Off 10/31/2022 Active Last Documented On 3 10:31AM ; [facility] Encounters Encounter Provider Location Date Check-In Time Check-Out Time Diagnosis Established Patient Sara Campa MD [facility] 023 8:20AM 8:53AM Insurance Includes: Active Insurance Policies Plan Name Member ID Group # Subscriber Relationship Effect roland Dates 1 - Medicare Part B of [place] [id number] Tay Elizabeth Self 2 - [employer] [id number] Tay Elizabeth Self Clinical Notes Includes: Clinical Notes from this encounter * Progress note Date Encounter Last Documented by 10/31/2022 Established Patient Last alise simpson on 10/31/2022; 9:07 AM, Sara Campa MD; [facility], Physical Findings - Vitals taken 10/31/2022 08:26 am BP-Sitting 114/72 mmHg Pulse Rate-Sitting 58 bpm Temp-Temporal 97.2 F Height 66 in Weight 157 lbs Body Mass Index 25.3 kg/m2 Body Surface Area 1.8 m2 Oxygen Saturation 98 % Plan StartCited - Contusion of left lower leg, initial encounter Follow Up/Appointment: 1 Month EndCited User Defined 4 Chief complaint Left lower leg hematoma status post inpatient stay on oct 16, 2022 HPI Patient was an inpatient because of a leg hematoma which was being treated nonoperatively. He presents today for evaluation. States the pain is improving and the swelling is improving. He is been trying to rest, ice, elevate. He is able to ambulate. He states the pain is worse when he ambulates. Physical examination There is an area of swelling which is consistent with a hematoma in the left lower leg. The area is warm to touch with some skin discoloration but no significant signs of infection including streaking. There is minimal tenderness to palpation. No significant fluctuance.Able to move his toes and his ankle and his knee without significant difficulty.There is a small area where it appears that there might have been a wound or an I&D which has now developed a scab/eschar over it Assessment plan Continue to do nonoperative management. Rest, ice, elevate. Local wound care. Weightbearing as tolerated with assistive device. Follow-up in to to 3 weeks for repeat clinical check and wound check. Consider heat versus ice. I explained to the patient and his that hematoma often takes many months to resorb. Our main goal is to provide appropriate local care and symptomatic care and prevent it from getting infected.
--- OUTSIDE RECORDS SUMMARY | 2024-06-10 11:16 | XMS_ITS | Encounter Summary ---
Author Name [facility] Address [address] [place] [address] Care Team Providers Care Explosion Welder Name Role Phone BONITA HELMS Primary Care Provider UnavailMOHAMUD Banuelos Unavailable Unavailable BELA RODNEY Unavailable Unavailable LON CHIU Unavailable Unavailable DOMONIQUE, PATRICIA Unavailable Unavailable MARY HOLLIS Unavailable UnavailPEBBLES Marx [...] [facility] MEDICARE SUPPLEMEN MEGHANA MEDEX [facility] E Mar 12, 2016 [id number] PRIYANK TURPIN SEPH PATIENT MEDICARE (WNR) MEDICARE (M) PART B May 10, 2004 PART B [id number] [phone] PRIYANK TURPIN SEPH PATIENT MEDICARE (WNR) MEDICARE (M) PART B May 10, 2004 PART B [id number] [phone] PRIYANK TURPIN SEPH PATIENT MEDICARE (WNR) MEDICARE (M) PART A July 10, 1997 PART A [id number] PRIYANK TURPIN PATIENT MEDICARE (WNR) MEDICARE (M) PART A July 10, 1997 PART A [id number] [facility] PRIYANK TURPIN PATIENT Selected Encounter This section includes the information on record at [place] for the Encounter. 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 This section includes future appointments and future orders which are active, pending or scheduled. Future Appointments This section includes appointments that were scheduled to occur 6 months from the date of the Encounter, up to a maximum of 20 appointments. The data comes from all [place] treatment facilities. Appointment Date/Time Appointment Type Appointme nt Facility Name Jan 09, 2024 02:00 PM [facility]UL[facility] - [place] [place] [facility] [place] [facility] Feb 29, 2024 11:00 AM [facility] - [facility] MEDICIN [facility] Mar 17, 2024 11:00 AM [facility] [place] [facility] [place] [facility] Apr 11, 2024 01:00 PM AM[facility]UL[facility]ORY - [place] MEDIC[place] May 06, 2024 10:30 AM [facility] [place] [facility] May 22, 2024 11:30 AM [facility] Social History: Smoking Status (Most current) and Tobacco Use (All prior to encounter date) This section includes the most current, and the historical, smoking and tobacco- related health factors from the [facility] facility where the Encounter took place. Current Smoking Status This section includes the most current smoking, or tobacco-related health factor, from the [facility] facility where the Encounter took place. Date/Time Current Smoking Status Comment Facil ute Mar 24, 2022 10:01 AM VA-TOBACCO NEVER USED [facility] Advance Directives: All historical and current Section Date Range: From patient's date of to the date document was created. This section includes ALL of a patient's completed or amended VA Advance and Rescinded Directives. The entries below indicate that a directive exists for the patient, but an actual copy is not included with this document. The data comes from all [place] facilities. Date Advance Directives Provider Source Jun 28, 2009 ADVANCE DIRECTIVE MANUELITO MORELOS Encounter Notes: All associated encounter notes This section contains the clinical notes associated to the Encounter. Date/Time Encounter Note(s) Provider Source Nov 28, 2023 11:29 AM OPTOMETRY CONSULT: LOCAL TITLE: CONSULT REPORT/OPTOMETRY FUNDUS PHOTO STANDARD TITLE: OPTOMETRY CONSULT DATE OF NOTE: NOV 28, 2023@11:29 ENTRY DATE: NOV 28, 2023@11:29:18 AUTHOR: ANUPAMA COONEY EXP COSIGNER: URGENCY: STATUS: COMPLETED Fundus photo report: Fundus photos reviewed for patient with AMD OU OD: optic disc shows normal cupping with distinct margins and healthy rim tissue. The vasculature is of normal caliber. Macula has a not clearly defined patch of atrophy inferior nasal to fovea with scattered drusen throughout the macula. There are a few mid-peripheral hemorrhages superior to the disc and few tiny hemorrhages inferior nasal and inferior to disc OS: optic disc shows normal cupping with distinct margins and healthy rim tissue. The vasculature is of normal caliber. Macula has a not clearly defined patch of atrophy inferior to fovea with scattered drusen throughout the macula. 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 Continue to monitor /devon/ ANUPAMA COONEY OD Industrial Illuminating Engineer Signed: 11/28/2023 11:34 ANUPAMA COONEY [facility]
--- OUTSIDE RECORDS SUMMARY | 2024-06-10 11:16 | XMS_ITS ---
Author Organization [facility] Address [address] [place] [address] Care Team Providers Care Supervisor [employer] Name Role Phone Litzy DUMONT, William Primary Care Provider Hortensia Osborne Unavailable [phone] Allergies Allergen (clinical drug ingredient) Drug/Non Drug Allergy documented on EMR Reaction Allergy Type Onset Date Status Guaifenesin peeling Drug Allergy Activ e REASON FOR VISIT At Risk Footcare Medications Medication SIG (Take, Route, Frequency, Duration) Notes Start Date End Date Status Aspirin 81 MG 1 tablet Orally Once a day for 30 day(s) Not-Taking Myrbetriq 50 MG 1 tablet Orally Once a day for 30 day(s) Not-Taking Clopidogrel Bisulfate 75 MG 1 tablet Orally Once a day Not-Taking Gabapentin Not-Takin g Tamsulosin HCl Activ e Atorvastatin Calcium 80 MG 1 tablet Orally Once a day Active PreserVision AREDS 2 Active Insulin Active Vitamin D Active Extra-Depth Diabetic Shoes with 3 Pair Custom heat-molded multi-density innersoles . for 1 year . Dx:hammertoes and calloused lesions for . Active Sertraline HCl 100 MG 1 tablet Orally Active Metoprolol Tartrate 25 MG 1 tablet with food Orally Twice a day Active Multivitamin Active Creon 51085-10843 UNIT Orally Active Vancomycin Not-Takin g Citalopram Hydrobromide 40 MG 1 tablet Orally Once a day for 30 day(s) Not-Taking Diltiazem HCl Coated Beads 180 MG 1 capsule Orally Once a day for 30 day(s) Not-Taking Lisinopril 2.5 MG 1 tablet Orally Once a day for 30 day(s) Not-Taking Pravastatin Sodium 20 MG 1 tablet Orally Once a day for 30 day(s) Not-Taking rifAMPin Not-Taking ALPRAZolam 0.5 MG 1 tablet Orally Thre e times a day Not-Taking Zenpep 50462 UNIT as directed Orally Not-Taking oxyCODONE HCl 5 MG 1 tablet Orally ever y 6 hrs Not-Taking Amoxicillin Not-Taki ng Fish Oil 1000 MG 1 capsule with a little l Orally Once a day for 30 day(s) Not-Taking Extra Depth Orthopedic Shoes (1 Pair) with Customized Heat Molded Multidensity Innersoles (3 Pair) as directed Dx: NIDDM/Polyneuropathy (E11.42), Hammertoe Foot Deformity (M20.41,M20.42), Preulcerative Skin Lesion(s) (L85.1 05/31/2016 Not-Taking zzzExtra Depth Orthopedic Shoes (1 Pair) with Customized Heat Molded Multidensity Innersoles (3 Pair) . . . Dx: IDDM/Polyneuropathy (E10.42), Hammertoe Foot Deformity (M20.41,M20.42), Preulcerative Skin Lesion(s) (L85.1) for . 05/04/2015 Not-Taki ng Extra Depth Orthopedic Shoes (1 Pair) with Customized Heat Molded Multidensity Innersoles (3 Pair) as directed Dx: NIDDM/Polyneuropathy (E11.42), Hammertoe Foot Deformity (M20.41,M20.42), Preulcerative Skin Lesion(s) (L85.1 09/13/2017 Not-Taking Probiotic Not-Taking Extra Depth Orthopedic Shoes (1 Pair) with Customized Heat Molded Multidensity Innersoles (3 Pair) as directed Dx: NIDDM/Polyneuropathy (E11.42), Hammertoe Foot Deformity (M20.41,M20.42), Preulcerative Skin Lesion(s) (L85.1 12/27/2018 Not-Taking Lisinopril 2.5 MG Orally No t-Taking Cholecalciferol Not- Taking Doxycycline Not-Juan A ng Social History Tobacco Use: Social History Observation Description Date Details (start date - stop date) Never Smoker NA - NA Tobacco use other than smoking: Question Answer Notes Are you an other tobacco user? No Tobacco Control (Standard) Question Answer Notes Tobacco use: Nonsmoker Additional Findings: Tobacco non-user Current no nsmoker AUDIT-C (Standard) Question Answer Notes Did you have a drink containing alcohol in the p ast year? No Points 0 Interpretation Negative Vital Signs Height 5 ft 7 in in 06/03/2024 Weight 156 lbs 06/03/2024 BMI 24.43 kg/m2 06/03/2024 Blood pressure systolic 130 mm Hg 06/04/19 Blood pressure diastolic 80 mm Hg 025 Procedures Procedure Date Ordered Date Performed Result Body Sit e 91239-QMOU SKIN LESIONS, 2 TO 4 06/03/2024 N/A [id number] DYSTROPHIC NAILS ANY # 06/03/2024 N/A Encounters Encounter Location Date Provider Diagnosis [facility] [address] [address] 06/03/2024 Hortensia Sparrow Type 2 diabetes katty itus with diabetic polyneuropathy E11.42 Assessments Encounter Date Diagnosis (ICD Code) Assessment Notes Treatment Notes Treatment Clinical Notes Section Notes 06/03/2024 Type 2 diabetes mellitus with diabetic polyneuropathy (ICD-10 - E11.42) Plan Of Treatment Pending Test Test Name Order Date 29947-QDVF SKIN LESIONS, 2 TO 4 06/04/19 [id number] DYSTROPHIC NAILS ANY # Next Appt Details Follow Up: prn, Reason: Provider Name:Hortensia Sparrow , 08/05/2024 11:15:00 AM, [address] [place] [address], [phone], Provider Name:Hortensia Sparrow , 10/07/2024 11:15:00 AM, [address] [place] [address], [phone], Procedure Notes * Category Sub-Category Detail Notes Keratoma Treatment Parring or Cutting o f Benign Hyperkeratotic Lesion(s) (-56) 2-4 Lesions - Due to the at risk nature of the patients medical condition as documented in the exam findings, performance of this keratoderma treatment is medically necessary as its management by an unskilled/untrained nonprofessional would put this patients foot and overall health at risk. Therefore, the benign hyperkeratotic lesions, ( 2) in total, locations as stated and described in the exam ( SUB MTH (s), 1, B/L ,), were pared, and/or cut utilizing a sterile 15 blade, tissue nippers, and/or power dremel instrumentation by the physician of record - 66498 Nail Reduction Nail Reduction (-27) Trimming o f all dystrophic nails - Due to the at risk nature of the patients medical condition as documented in the exam findings, performance of this nail treatment is medically necessary as its management by an unskilled/untrained nonprofessional would put this patients foot and overall health at risk. Therefore, the dystrophic nails, in locations as stated and described in the exam ( TA, T1, T2, T3, T4, T5, T6, T7, T8, T9, ), were debrided by the phisician of record to reduce/remove overall nail length and girth, by manual and electrical means with use of a nail nipper and/or dremel, to more viable healthy nail plate or bed tissue - G0127 Progress Notes * Tay TURPINDOB:1940 (84 yo M)Acc No.[id number]:06/03/2024 Progress Note Patient:?Tay TURPIN Provider:?Hortensia Sparrow DPM :1940???Age:84 Y???Sex:Male Max e:06/03/2024 Address:[address] [place], [place] [id number] Pcp:William Mcghee MD Subjective: * Chief Complaints: * ???At Risk Footcare * HPI: ???At Risk footcare:?Pt States Last PCP Visit:?Date?03/25/2024 * ROS:?General/Constitutional:?Nausea?denies.?Vomiting?denies.?Hunger Thirst?denies.?Loss appetite?denies.?Chills?denies.?Fatigue?denies.?Fever?denies.?Night Sweats?denies.?Unexplained weight loss?denies.?Ophthalmologic:?Blurred vision?denies.?Red eye?denies.?HEENTM:?Dentures?denies.?Dizziness?denies.?Glasses/contacts?admits.?Retinopathy?den ies.?Blurred/double vision?denies.?TMJ?denies.?Discharge/drainage?denies.?Implants?denies.?Hard of hearing denies.?Difficulty chewing/swallowing/speaking?denies.?Nose bleeds?denies.?Sore mouth?denies.?Swollen glands?denies.?Respiratory:?On O xygen?denies.?Pneumonia/pleurisy?denies.?Bronchitis?denies.?Emphysema?denies.?Co ughing?denies.?Cough blood?denies.?Shortness of breath?denies.?Wheezing?denies.?Cardiovascular:?Pacemaker?denies.?MVP?denies.?WPW?denies.?CHF?denies.?Heart attack?denies.?Septal defect?denies.?Rapid beat?denies.?Chest pain ?denies.?Atrial Fib.?denies.?Murmur/Palpitations?denies.?Gastrointestinal:?Hemorrhoids?denies.?Stomach/Abdominal pain?denies.?Dark blood stool?denies.?Irritable bowel ?denies.?Constipation?denies.?Diarrhea?denies.?Vomiting?denies.?Hematology:?Swelling?denies.?Bruising?denies.?Bleeding problem?denies.?Genitourinary:?Blood urine?denies.?Frequent/Painfu/urination/bladder control?denies.?Kidney stones?denies.?Infection (UTI)?denies.?Nephropathy?denies.?Musculoskeletal:?Hammertoes?denies.?Bunions?denies.?Scoliosis/kyphosis?denies.?Muscle cramps / walking?denies.?Generalized aches and pains?denies.?Weakness?denies.?Integ.:?Nunez?denies.?Scars?denies.?Corns/calluses?denies.?Ingrown nails?admits.?Painful nails?admits.?Rashes?denies.?Neurologic:?Difficulty sleeping?denies.?Bipolar?denies.?Brain disorder?denies.?Balance t rouble?denies.?Confusion?denies.?Fainting/blackouts?denies.?Headache?denies.?Mat mors?denies.? * Medical History:? 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 * Social History:?Tobacco Use:?Tobacco use other than smoking?Are you an other tobacco user??No ?Tobacco Control (Standard)?Tobacco use:?Nonsmoker ?Additional Findings: Tobacco non-user?Current nonsmoker ???Drugs/Alcohol:?Drugs?Have you used drugs other than those for medical reasons in the past 12 months??No ???Miscellaneous:?Caffeine: yes, 1-2 cups per day. ?Children: yes, 1 living. ?Exercise: yes, walking. ?Marital status: . 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 ???Drug/Alcohol:?AUDIT-C (Standard)?Did you have a drink containing alcohol in the past year??No ?Points?0 ?Interpretation?Negative * Medications:?TakingMetoprolo l Tartrate 25 MG Tablet 1 tablet with food Orally Twice a day Sertraline HCl 100 MG Tablet 1 tablet Orally Creon 42584-86454 UNIT Capsule Delayed Release Particles Orally Multivitamin PreserVision AREDS 2 Atorvastatin Calcium 80 MG Tablet 1 tablet Orally Once a day Vitamin D Insulin Extra-Depth Diabetic Shoes with 3 Pair Custom heat-molded multi-density innersoles . . for 1 year . Dx:hammertoes and calloused lesions Tamsulosin HCl Taking Metoprolol Tartrate 25 MG Tablet 1 tablet with food Orally Twice a day Taking Sertraline HCl 100 MG Tablet 1 tablet Orally Taking Creon 82009-45750 UNIT Capsule Delayed Release Particles Orally Taking Multivitamin Taking PreserVision AREDS 2 Taking Atorvastatin Calcium 80 MG Tablet 1 tablet Orally Once a day Taking Vitamin D Taking Insulin Taking Extra- Depth Diabetic Shoes with 3 Pair Custom heat-molded multi-density innersoles . . for 1 year . Dx:hammertoes and calloused lesions Taking Tamsulosin HCl Not- Taking/PRNGabapentin Myrbetriq 50 MG Tablet Extended Release 24 Hour 1 tablet Orally Once a day Aspirin 81 MG Tablet Chewable 1 tablet Orally Once a day Clopidogrel Bisulfate 75 MG Tablet 1 tablet Orally Once a day Lisinopril 2.5 MG Tablet Orally Doxycycline Cholecalciferol zzzExtra Depth Orthopedic Shoes (1 Pair) with Customized Heat Molded Multidensity Innersoles (3 Pair) . . . . Dx: IDDM/Polyneuropathy (E10.42), Hammertoe Foot Deformity (M20.41,M20.42), Preulcerative Skin Lesion(s) (L85.1) Extra Depth Orthopedic Shoes (1 Pair) with Customized Heat Molded Multidensity Innersoles (3 Pair) as directed Dx: NIDDM/Polyneuropathy (E11.42), Hammertoe Foot Deformity (M20.41,M20.42), Preulcerative Skin Lesion(s) (L85.1 Extra Depth Orthopedic Shoes (1 Pair) with Customized Heat Molded Multidensity Innersoles (3 Pair) as directed Dx: NIDDM/Polyneuropathy (E11.42), Hammertoe Foot Deformity (M20.41,M20.42), Preulcerative Skin Lesion(s) (L85.1 Extra Depth Orthopedic Shoes (1 Pair) with Customized Heat Molded Multidensity Innersoles (3 Pair) as directed Dx: NIDDM/Polyneuropathy (E11.42), Hammertoe Foot Deformity (M20.41,M20.42), Preulcerative Skin Lesion(s) (L85.1 Probiotic Zenpep 10244 UNIT Capsule Delayed Release Particles as directed Orally ALPRAZolam 0.5 MG Tablet 1 tablet Orally Three times a day Amoxicillin oxyCODONE HCl 5 MG Tablet 1 tablet Orally every 6 hrs Fish Oil 1000 MG Capsule 1 capsule with a meal Orally Once a day Citalopram Hydrobromide 40 MG Tablet 1 tablet Orally Once a day Diltiazem HCl Coated Beads 180 MG Capsule Extended Release 24 Hour 1 capsule Orally Once a day Pravastatin Sodium 20 MG Tablet 1 tablet Orally Once a day Lisinopril 2.5 MG Tablet 1 tablet Orally Once a day rifAMPin Vancomycin Medication List reviewed and reconciled with the patientNot-Taking/PRN Gabapentin Not-Taking/PRN Myrbetriq 50 MG Tablet Extended Release 24 Hour 1 tablet Orally Once a day Not-Taking/PRN Aspirin 81 MG Tablet Chewable 1 tablet Orally Once a day Not-Taking/PRN Clopidogrel Bisulfate 75 MG Tablet 1 tablet Orally Once a day Not-Taking/PRN Lisinopril 2.5 MG Tablet Orally Not-Taking/PRN Doxycycline Not-Taking/PRN Cholecalciferol Not-Taking/PRN zzzExtra Depth Orthopedic Shoes (1 Pair) with Customized Heat Molded Multidensity Innersoles (3 Pair) . . . . Dx: IDDM/Polyneuropathy (E10.42), Hammertoe Foot Deformity (M20.41,M20.42), Preulcerative Skin Lesion(s) (L85.1) Not-Taking/PRN Extra Depth Orthopedic Shoes (1 Pair) with Customized Heat Molded Multidensity Innersoles (3 Pair) as directed Dx: NIDDM/Polyneuropathy (E11.42), Hammertoe Foot Deformity (M20.41,M20.42), Preulcerative Skin Lesion(s) (L85.1 Not-Taking/PRN Extra Depth Orthopedic Shoes (1 Pair) with Customized Heat Molded Multidensity Innersoles (3 Pair) as directed Dx: NIDDM/Polyneuropathy (E11.42), Hammertoe Foot Deformity (M20.41,M20.42), Preulcerative Skin Lesion(s) (L85.1 Not-Taking/PRN Extra Depth Orthopedic Shoes (1 Pair) with Customized Heat Molded Multidensity Innersoles (3 Pair) as directed Dx: NIDDM/Polyneuropathy (E11.42), Hammertoe Foot Deformity (M20.41,M20.42), Preulcerative Skin Lesion(s) (L85.1 Not-Taking/PRN Probiotic Not-Taking/PRN Zenpep 55620 UNIT Capsule Delayed Release Particles as directed Orally Not-Taking/PRN ALPRAZolam 0.5 MG Tablet 1 tablet Orally Three times a day Not-Taking/PRN Amoxicillin Not-Taking/PRN oxyCODONE HCl 5 MG Tablet 1 tablet Orally every 6 hrs Not-Taking/PRN Fish Oil 1000 MG Capsule 1 capsule with a meal Orally Once a day Not-Taking/PRN Citalopram Hydrobromide 40 MG Tablet 1 tablet Orally Once a day Not-Taking/PRN Diltiazem HCl Coated Beads 180 MG Capsule Extended Release 24 Hour 1 capsule Orally Once a day Not-Taking/PRN Pravastatin Sodium 20 MG Tablet 1 tablet Orally Once a day Not-Taking/PRN Lisinopril 2.5 MG Tablet 1 tablet Orally Once a day Not-Taking/PRN rifAMPin Not-Taking/PRN Vancomycin Medication List reviewed and reconciled with the patient * Allergies:?Guaifenesin: peel ing - Allergyyes[Allergies Verified] Objective: * Vitals:?Ht: 5 ft 7 in, Wt: 1 56, BMI: 24.43, Shoe size: 9.51, BP: 130/80 mm Hg, BS: 188, Wt-k.76 kg. * ???Past Orders: ???Lab:HEMOGLOBIN A1C (GLYCO HEMOGLOBIN) (Order Date - 04/01/2024) (Collection Date & Time - 04/01/2024 01:17 PM) ? Value Reference Range ?HEMOGLOBIN A1C % (HH) 8.0 * Examination: ???Ophthalmology Referral: ?DIABETES EYE EXAM?Procedure Performed:?Yes ?Date of Exam Performed?03/17/2024 ?Diabetic Retinopathy Screening:?Yes ?Findings of Diabetic Eye Exam:?no retinopathy?General Examination: ?GENERAL APPEARANCE:?Reveals a pleasant, alert, well nourished, well- developed, well hydrated individual, who demonstrates proper attention to hygiene/body habitus, and is in no acute distress, Pt serves as own historian for office visit today, Pt accompanied by, , who serves as, additional Historian, and/who is physically present in exam room at time of visit.?ORIENTED:?person, place, and time.?Nails: ?NAILS are:?Elongated, overgrown, dystrophic, ,, TA, T1, T2, T3, T4, T5, T6, T7, T8, T9.?Dermatologic: ?SKIN FINDINGS:? Skin exam reveals Keratotic lesion(s) located at, SUB MTH (s), 1, B/L? ,.?Neurological: ?SENSORY:?exam demonstrates. reduced vibration lower extremity, reduced light touch sensation, 5.07 monofilament test performed at plantar aspects of 5 varied sites per foot shows sensation, absent, , B/L, reduced sharp/dull pin prick discrimination , Pt relates anesthesia, burning, Forefoot,?.?Vascular: ?DP PULSES (B):?1/4, B/L ,.?PT PULSES (B):?2/4, B/L ,.?CAPILLARY FILL TIME:?immediate, all digits, B/L.?TROPHIC CONDITION-TEXTURE/ELASTICITY/TURGOR/HAIR GROWTH (B):?normal, B/L.?TEMPERTURE GRADIENT (C):?normal, warm to cool, proximal to distal, B/L, B/L.?PIGMENTATION:?normal, B/L.? Assessment: * Assessment: 1.?Type 2 diabetes mellitus with diabetic polyneuropathy - E11.42 (Primary)??? Plan: * Treatment: * Procedures:?Keratoma Treatment:?Parring or Cutting of Benign Hyperkeratotic Lesion(s)?(-56) 2-4 Lesions - Due to the at risk nature of the patients medical condition as documented in the exam findings, performance of this keratoderma treatment is medically necessary as its management by an unskilled/untrained nonprofessional would put this patients foot and overall health at risk. Therefore, the benign hyperkeratotic lesions, ( 2) in total, locations as stated and described in the exam ( SUB MTH (s), 1, B/L ,), were pared, and/or cut utilizing a sterile 15 blade, tissue nippers, and/or power dremel instrumentation by the physician of record - 10448.?Nail Reduction:?Nail Reduction?(-27) Trimming of all dystrophic nails - Due to the at risk nature of the patients medical condition as documented in the exam findings, performance of this nail treatment is medically necessary as its management by an unskilled/untrained nonprofessional would put this patients foot and overall health at risk. Therefore, the dystrophic nails, in locations as stated and described in the exam ( TA, T1, T2, T3, T4, T5, T6, T7, T8, T9, ), were debrided by the phisician of record to reduce/remove overall nail length and girth, by manual and electrical means with use of a nail nipper and/or dremel, to more viable healthy nail plate or bed tissue - G0127.? * Procedure Codes:?79844 TRIM SKIN LESIONS, 2 TO 4, Modifiers: XS G0127 TRIMMING DYSTROPHIC NAILS ANY #, Modifiers: XS * Follow Up:?prn * Images: * Sign off status: Completed true * Provider:?Hortensia Sparrow DPM Date:?2024 Generated for Printi ng/Faxing/eTransmitting on:?06/10/2024 11:16 AM EDT History and Physical Notes * HPI (History of Present Illness) Category Sub-Category Detail Notes Category Not es At Risk footcare Pt States Last PCP Visit: Date: Examination Category Sub-Category Detail Notes Category Not es Neurological SENSORY: exam demonstrate s. reduced vibration lower extremity, reduced light touch sensation, 5.07 monofilament test performed at plantar aspects of 5 varied sites per foot shows sensation, absent, , B/L, reduced sharp/dull pin prick discrimination , Pt relates anesthesia, burning, Forefoot, Dermatologic SKIN FINDINGS: Skin exam reveal s Keratotic lesion(s) located at, SUB MTH (s), 1, B/L , General Examination GENERAL APPEARANCE: Reveals a pleasant, alert, well nourished, well-developed, well hydrated individual, who demonstrates proper attention to hygiene/body habitus, and is in no acute distress, Pt serves as own historian for office visit today, Pt accompanied by, , who serves as, additional Historian, and/who is physically present in exam room at time of visit ORIENTED: person, place, and t codey Ophthalmology Referral DIABETES EYE EXAM Procedure Perform ed:: Yes ?Date of Exam Performed: 03/17/2024 Diabetic Retinopathy Screening:: Yes Findings of Diabetic Eye Exam:: no retin opathy Vascular DP PULSES (B): 1/4, B/L , PT PULSES (B): 2/4, B/L , CAPILLARY FILL TIME: immediate, all digi ts, B/L TEMPERTURE GRADIENT (C): normal, warm to cool, proximal to distal, B/L, B/L TROPHIC CONDITION-TEXTURE/ELASTICITY/TURGOR/HAIR GROWTH (B): normal, B/L PIGMENTATION: normal, B/L Nails NAILS are: Elongated, overg rown, dystrophic, ,, TA, T1, T2, T3, T4, T5, T6, T7, T8, T9
--- OUTSIDE RECORDS SUMMARY | 2024-06-10 11:16 | XMS_ITS ---
[place] [facility] [place] [facility] Encounter Summary Created on: June 10, 2024 PAPI CAROLYNN : 1940 Sex: Male Author Name [facility] [place] [facility] Address [address] [place] [id number] Care Team Providers Care Synchronous Motor Assembler Name Role Phone BONITA HELMS Primary Care Provider Unavailfranki WHITE, MOHAMUD Unavailable Unavailable BELA RODNEY Unavailable Unavailable APPLE, LON Unavailable Unavailable DOMONIQUE, PATRICIA Unavailable Unavailable TELMA, MARY Unavailable UnavailPEBBLES Marx [...] Mueller's Name Patient's Relationship to Policy Mueller [place] [facility] E Mar 12, 2016 [id number] PRIYANK TURPIN SEPH PATIENT MEDICARE (WNR) MEDICARE (M) PART B May 10, 2004 PART B [id number] PRIYANK TURPIN SEPH PATIENT MEDICARE (WNR) MEDICARE (M) PART B May 10, 2004 PART B [id number] PRIYANK TURPIN SEPH PATIENT MEDICARE (WNR) MEDICARE (M) PART A July 10, 1997 PART A [id number] PRIYANK TURPIN PATIENT MEDICARE (WNR) MEDICARE (M) PART A July 10, 1997 PART A [id number] [facility] PRIYANK TURPIN PATIENT Selected Encounter This section includes the information on record at [place] for the Encounter. Date/Time Encounter Type Encounter Description Reason Provider Source Oct 25, 2023 01:00 PM MEDICAL NUTRITION INDIV IN [facility] - DIETITIAN ICD-10-CM Z71.3 Dietary counseling and surveillance ROSALIND RODNEY [facility] Encounter Template Text not used by [place] Assessments - Encounter Diagnoses This section includes the primary and secondary diagnoses documented for the Encounter. Date/Time Primary/Secondary Diagnosis Diagnosis Name Provider Source Oct 25, 2023 04:49 PM PRIMARY Dietary counseling and surveillance ROSALIND RODNEY [place] [facility] [place] [facility] Oct 25, 2023 04:49 PM SECONDARY Type 1 diabetes mellitus without complications ROSALIND RODNEY [place] [facility] [place] [facility] Plan of Treatment: Future Appointments (+ 6 months) and Future Tests (+/- 45 days) The Plan of Treatment section includes future care activities for the patient from all [place] [facility] This section includes future appointments and future orders which are active, pending or scheduled. Future Appointments This section includes appointments that were scheduled to occur 6 months from the date of the Encounter, up to a maximum of 20 appointments. The data comes from all [place] treatment facilities. Appointment Date/Time Appointment Type Appointme nt Facility Name Nov 27, 2023 11:00 AM AMBULATORY - [facility] [place] [facility] Nov 28, 2023 10:30 AM AMBULATORY - [place]ICINE [place] [facility] [place] [facility] Nov 28, 2023 11:30 AM AM[place]ATORY - [place] [facility] [place] [facility] Nov 28, 2023 11:45 AM AM[place]ULATORY - [place] [facility] [place] [facility] Jan 09, 2024 02:00 PM AMBULATORY - [facility]ICIN [facility] [place] [facility] Feb 29, 2024 11:00 AM AMBULATORY - RE[facility]AB MEDICIN [facility] Mar 17, 2024 11:00 AM AMBULATORY - RE[facility]AB MEDICIN [facility] Apr 11, 2024 01:00 PM AMBULATORY - REHAB [facility] [place] Vital Signs: All taken on the encounter date This section contains inpatient and outpatient Vital Signs collected on the date of the Encounter. Date/Time Temperature Pulse Blood Pressure Respiratory Rate SP02 Pain Height Weight Body Mass Index Source Oct 25, 2023 01:00 PM 155.4 24 [facility] Social History: Smoking Status (Most current) and Tobacco Use (All prior to encounter date) This section includes the most current, and the historical, smoking and tobacco- related health factors from the [place] facility where the Encounter took place. Current Smoking Status This section includes the most current smoking, or tobacco-related health factor, from the [place] facility where the Encounter took place. Date/Time Current Smoking Status Comment Kathy unger Mar 24, 2022 10:01 AM VA-TOBACCO NEVER USED [facility] Advance Directives: All historical and current Section Date Range: From patient's date of to the date document was created. This section includes ALL of a patient's completed or amended [place] Advance and Rescinded Directives. The entries below indicate that a directive exists for the patient, but an actual copy is not included with this document. The data comes from all [place] facilities. Date Advance Directives Provider Source Jun 28, 2009 ADVANCE DIRECTIVE MANUELITO MORELOS Encounter Notes: All associated encounter notes This section contains the clinical notes associated to the Encounter. Date/Time Encounter Note(s) Provider Source Oct 25, 2023 01:00 PM NUTRITION DIETETICS CONSULT: LOCAL TITLE: CONSULT REPORT/NUTRITION AND NET SOFTWARE DEVELOPER STANDARD TITLE: NUTRITION DIETETICS CONSULT DATE OF NOTE: OCT 25, 2023@13:00 ENTRY DATE: OCT 25, 2023@14:50:42 AUTHOR: BELA RODNEY COSIGNER: URGENCY: STATUS: COMPLETED NUTRITION ASSESSMENT Reason for Nutrition referral: [facility] Admit Primary Diagnosis: Type II DM with hyperglycemia (E11.65) Secondary Diagnosis: Dietary Surveillance and Counseling (Z71.3) Additional Secondary Diagnosis: Other Obesity due to excess calories (E66.09) Date of Nutrition Visit: Oct Visit #: 1 Time Spent with Patient: 60 minutes Patient identified using the following two forms of ID: Date of , Patient Full Name NUTRITION ASSESSMENT: Client History Medication List Reviewed Food/Drug Interactions: Amlodipine/Grapefruit, Atorvastatin/Grapefruit, Insulin/Potential for hypoglycemia Nutritional/Herbal Supplements: yes Cholecalciferol Calcium Food Allergies: no Problem List Reviewed: yes Anthropometric Measurements: == Ht:67 in [170.2 cm] (11/06/2022 14:48) Wt:155.4 lb. [70.49 kg] (10/25/2023 13:00) Weight History: [place] thinks he has lost some weight recently. BMI: 24.4 IBW: 149 lb. Biochemical Data/Medical Tests: ===== Labs: LIPID PANEL TREND Collection DT Spec CHOL HDL CHO/HDL LDL-d LDL-c TRIG 06/07/2023 09:47 SERUM 108 23 L 4.7 58 134 10/31/2022 09:08 SERUM 99 24 L 4.1 49 128 HEMOGLOBIN A1C; BLOOD Ed. Date: 06/07/23 09:47 10/31/22 09:08 Test Name Result Units Range HEMOGLOBIN A1C 9.8 H 8.2 H % 4.0 - 5.6 Other Labs: GLUCOSE (BLOOD SUGAR) Collection DT Specimen Test Name Result Units Ref Range 06/07/2023 09:47 SERUM GLUCOSE 227 H mg/dL 65 - 100 BP: 138/60 (10/08/2023 12:00) Nutrition Focused Physical Findings: Appetite: Good Other issues/concerns: None Nutrition-Focused Physical Exam ===== A selection MUST be made in The Nutrition-Focused Physical Exam Summary section No significant physical signs of nutrient excesses or deficits Energy Intake (reduction as compared to estimated requirements): [X]Decreased energy intake not identified. Interpretation of Weight Loss: [X]No significant weight loss identified Subcutaneous fat loss noted in the following areas: [X]No body fat loss identified Bilateral muscle depletion noted in the following areas: [X]No muscle loss identified Chief Relay Tester Strength Reduced dance therapist strength not identified R Hand: 40 pounds of force L Hand: 20 pounds of force Nutrition-Focused Physical Exam Summary: Based on the ASPEN/AND Malnutrition Diagnosis Guide, it was determined that the DOES NOT have malnutrition. Nutrition History: Food/Nutrition Related History: Met with and his in their living room. has history of pancreatectomy and relies on Medtronic Mini med insulin pump to provide his insulin. He appears to be using it in manual mode. He will give himself a correction at times using an insulin pen vs pump. He is currently doing fingerstick, current blood glucose 233. Has freestyle odin, but has not started using it yet. He does not appear to be fully utilizing benefits of pump. He does enter carbs, but does not read labels. cooks. He eats 2-3 meals per day. Mainly drinks water, 2% milk and diet soda. He is taking Creon, but takes it 3 times a day not with his meals. He reports having regular bms. skin intact. 24 hour recall: B: frosted flakes, mini bagel with cream cheese, coffee L: chicken salad sandwich, diet soda D: chicken breast, squash, water snacks: fig eagle In the past 3 months, did you ever run out of food and you were not able to access more food or have the money to buy more food? No Physical Activity: limited Current pump settings: basal rate: 8961-4635 = 0.6 units/hr. 5989-4514 = 1.1 units/hr. 5248-8514 = 0.7 units/hr. Carb to insulin ratio = 10:1 correction [address] Maldonado for endocrinology NUTRITION DIAGNOSIS Nutrition Problem: NEW Food-and Nutrition-Related Knowledge Deficit related to lack of prior exposure to accurate nutrition related information as evidenced by verbalizes inaccurate or incomplete information. INTERVENTION NUTRITION COUNSELING Nutrition counseling based on goal setting strategy , Nutrition counseling based on self monitoring strategy , Nutrition counseling based on problem solving strategy NUTRITION EDUCATION Content related to nutrition education Nutrition Education provided on the following topics: Sources of Carbohydrates, Carbohydrate Counting (basic), Healthy Meal Planning Printed Nutrition educational materials provided during this encounter: Diabetes Meal Planning: Plan Your Plate , Label Reading for Person's with Diabetes Education Narrative: Reviewed how to read a nutrition facts label and identify grams of carbs. Discussed carb counting and estimating carb content of food. Practiced counting carb using food labels in the kitchen. Discussed referral to diabetes education and and expressed interest. They note having done it in the past, but have forgotten it. He would like to learn more about his insulin pump. Recommended taking creon with meals to get most benefit of med. Barriers to Education: None Comprehension: Good Motivation: Good ======= COORDINATION OF NUTRITION CARE Follow-up with: HB Team, DARRELL MONITORING Patient goals: 1. Estimate carbs content of meal and enter into pump prior to eating. 2. Read nutrition fact labels. 3. Take creon with meals. FOLLOW-UP PLAN 1. Follow-up visit: at least annually or prn 2. Monitor progress toward achievement of Nutrition Intervention Goals 3. Assess comprehension and motivation based on dietary changes made 4. Monitor progress toward achievement of Clinical Outcome Goals: Weight, Labs CLINICAL OUTCOME GOALS: Indicator A1c: Criteria: Type II DM Goal: A1c<7% by follow-up Progress: TBD at follow-up WHOLE HEALTH WHOLE HEALTH EDUCATION Whole Health Education was provided. /es/ BELA RODNEY STAFF DIETITIAN Signed: 10/25/2023 16:51 Receipt Acknowledged By: 10/26/2023 17:26 /es/ CARLOS ALBERTO RAMIREZ NP [facility] Nurse Practitioner for BONITA GRANT SCOOTER 10/26/2023 10:38 /es/ JAYJAY SANABRIA, CREDIT CARD SPECIALIST [employer] for JOSEPH CONTE 10/26/2023 13:01 /es/ Paola Hudson RN [facility] program therapist BELA RODNEY [facility]
--- OUTSIDE RECORDS SUMMARY | 2024-06-10 11:16 | XMS_ITS | Encounter Summary ---
Author Organization [facility] Address [address] [place] [address] Phone Care Team Providers Care Linux Unix System Administrator Name Role Phone William Mcghee DO Primary Care Provider [phone] Encounter Details Date Type Department Care Team (Late st Contact Info) Description 06/28/[address] [facility] [address] [place] [id number] Social History Tobacco Use Types Packs/Day Years [...] documented as of this encounter Care Teams Linux Unix System Administrator Relationship Specialty Start Date End Date William Mcghee DO [address] [place] [address] [address] [place] [address] PCP - General Internal Medicine 06/28/17 documented as of this encounter Additional Source Comments The information contained in this document represents components of the legal health record. It is not the complete legal health record.[facility]
--- OUTSIDE RECORDS SUMMARY | 2024-06-10 11:16 | XMS_ITS | Patient Health Record ---
[facility] Address [address] [place] [address] Care Team Providers Care Bed Laster Name Role Phone Litzy DUMONT, William Primary Care Provider Hortensia Osborne Unavailable [phone] Allergies Allergen (clinical drug ingredient) Drug/Non Drug Allergy documented on EMR Reaction Allergy Type Onset Date Status Guaifenesin peeling Drug Allergy Activ e Results Component Value Reference Range Notes HEMOGLOBIN A1C (GLYCOHEMOGLO BIN) Reviewed date:04/02/2024 01:18:11 PM Interpretation: Performing Lab: Notes/Report: HEMOGLOBIN A1C % (HH) 8.0 Reason For Referral No Information Medications Medication SIG (Take, Route, Frequency, Duration) Notes Start Date End Date Status Extra-Depth Diabetic Shoes with 3 Pair Custom heat-molded multi-density innersoles . for 1 year . Dx:hammertoes and calloused lesions for . Active Aspirin 81 MG 1 tablet Orally Once a day for 30 day(s) Not-Taking Myrbetriq 50 MG 1 tablet Orally Once a day for 30 day(s) Not-Taking Lisinopril 2.5 MG Orally No t-Taking Clopidogrel Bisulfate 75 MG 1 tablet Orally Once a day Not-Taking Cholecalciferol Not- Taking Doxycycline Not-Taki ng Extra Depth Orthopedic Shoes (1 [...] Lesion(s) (L85.1) for . 05/04/2015 Not-Taki ng Lisinopril 2.5 MG 1 tablet Orally Once a day for 30 day(s) Not-Taking Pravastatin Sodium 20 MG 1 tablet Orally Once a day for 30 day(s) Not-Taking Gabapentin Not-Takin g Vancomycin Not-Takin g Tamsulosin HCl Activ e rifAMPin Not-Taking Sertraline HCl 100 MG 1 tablet Orally Active ALPRAZolam 0.5 MG 1 tablet Orally Thre e times a day Not-Taking Metoprolol Tartrate 25 MG 1 tablet with food Orally Twice a day Active Zenpep 16756 UNIT as directed Orally Not-Taking Multivitamin Active oxyCODONE HCl 5 MG 1 tablet Orally ever y 6 hrs Not-Taking Creon [address] UNIT Orally Active Amoxicillin Not-Taki ng Atorvastatin Calcium 80 MG 1 tablet Orally Once a day Active Citalopram Hydrobromide 40 MG 1 tablet Orally Once a day for 30 day(s) Not-Taking PreserVision AREDS 2 Active Fish Oil 1000 MG 1 capsule with a little l Orally Once a day for 30 day(s) Not-Taking Insulin Active Vitamin D Active Diltiazem HCl Coated Beads 180 MG 1 [...] (M20.41,M20.42), Preulcerative Skin Lesion(s) (L85.1 12/27/2018 Not-Taking Immunizations Vaccine Route Administration Date Status Comme nts Influenza Unknown 11/25/2014 Administered Influenza Unknown 12/15/2015 Administered Influenza Unknown 11/13/2016 Administered Influenza Unknown 12/07/2017 Administered Influenza Unknown 12/11/2018 Administered Influenza Unknown 12/14/2022 Administered COVID-19 Moderna Vaccine Unknown 12/17/2020 Administered 1st vaccine 04/16/20 2nd dose: 05/14/2020 Social History Tobacco Use: Social History Observation [...] ast year? No Points 0 Interpretation Negative Section Notes: flu shot-? Dilated eyes 09/2014- [facility] flu shot-? Dilated eyes 09/2014- [facility] flu shot-? Dilated eyes 09/2014- [facility] Problems Problem Type SNOMED Code ICD Code Onset Dates Problem Status W/U Status Risk Notes Problem Polyneuropathy due to type 2 diabetes mellitus (320450132) Type 2 diabetes mellitus with diabetic polyneuropathy (E11.42) Active confirmed Problem Ulcer of foot (12168172) Non-pressure chronic ulcer of other part of left foot limited to breakdown of skin (L97.521) Active confirmed Problem Ulcer of toe (050683197) Non-pressure chronic ulcer of other part of right foot limited to breakdown of skin (L97.511) Active confirmed Vital Signs Blood pressure diastolic 80 mm Hg 06/03/2024 Height 5 ft 7 in in 06/03/2024 Blood pressure systolic 130 mm Hg 06/03/2024 Weight 156 lbs 06/03/2024 BMI 24.43 kg/m2 06/03/2024 Procedures Procedure Date Ordered Date Performed Result Body Sit e 12121-BILY SKIN LESIONS, 2 TO 4 06/22/2023 N/A D3680-DGQWRCSX DYSTROPHIC NAILS ANY # 06/22/2023 N/A 16512-HOEH SKIN LESIONS, 2 TO 4 08/24/2023 N/A A1322-UBJDRNNU DYSTROPHIC NAILS ANY # 08/24/2023 N/A 75366-GNWZ SKIN LESIONS, 2 TO 4 10/31/2023 N/A N7914-SHHIOPUO DYSTROPHIC NAILS ANY # 10/31/2023 N/A 63874-YQFU SKIN LESIONS, 2 TO 4 01/02/2024 N/A Y9078-FOAFDCVP DYSTROPHIC NAILS ANY # 01/02/2024 N/A 89202-NIIM SKIN LESIONS, 2 TO 4 04/02/2024 N/A Z1509-UUBDTPMZ DYSTROPHIC NAILS ANY # 04/02/2024 N/A 75287-AHPE SKIN LESIONS, 2 TO 4 06/03/2024 N/A K3814-ZYNALXLW DYSTROPHIC NAILS ANY # 06/03/2024 N/A Encounters Encounter Location Date Provider Diagnosis [place] Joanne Campa [address] [place] [id number] 06/22/2023 Hortensia Black Type 2 diabetes [facility]us [facility] [address] 08/24/2023 Hortensia Black Type 2 diabetes katty itus with diabetic polyneuropathy [facility] [address] [place] [address] 10/31/2023 Hortensia Black Type 2 diabetes katty itus with diabetic polyneuropathy [facility]11.[facility] [place] [address] 01/02/2024 Hortensia Black Type 2 diabetes katty itus with diabetic polyneuropathy E11.42 [facility] [place] [address] 04/02/2024 Hortensia Black Type 2 diabetes kat[facility] itus with [facility] [address] 06/03/2024 Hortensia Black Type 2 diabetes katty itus with diabetic polyneuropathy E11.42 Assessments Encounter Date Diagnosis (ICD Code) Assessment Notes Treatment Notes Treatment Clinical Notes Section Notes 06/22/2023 Type 2 diabetes mellitus with diabetic polyneuropathy (ICD-10 - E11.42) 08/24/2023 Type 2 diabetes mellitus with diabetic polyneuropathy (ICD-10 - E11.42) 10/31/2023 Type 2 diabetes mellitus with diabetic polyneuropathy (ICD-10 - E11.42) 01/02/2024 Type 2 diabetes mellitus with diabetic polyneuropathy (ICD-10 - E11.42) 04/02/2024 Type 2 diabetes mellitus with diabetic polyneuropathy (ICD-10 - E11.42) 06/03/2024 Type 2 diabetes mellitus with diabetic polyneuropathy (ICD-10 - E11.42) Plan Of Treatment Pending Test Test Name Order Date 80560-Sits Destruction, 03-2504/10/2014 23390-Dcjc Destruction, 03-2505/26/2014 46838-Nkll Destruction, 03-2508/07/2014 21524-Cdmo Destruction, 03-2510/16/2014 01906-Uikwusxh Plate 10/16/2014 32900-Xcgaqljh Plate 08/07/2014 17359-Dkoxgass Plate 07/16/2015 54462-Vwrbicgc Plate 09/24/2015 63853-Uukvzefu Plate 12/03/2015 78463-Gmrengmz Plate 02/16/2016 93110-Ndsyphge Plate 05/31/2016 75929-Aczncwrg Plate 06/25/2018 59197-Yeocagay Plate 09/25/2018 05287-Pyntpgul Plate 03/21/2019 37773-Gzweficr Plate 07/22/2019 10126-Xtegxrgq Plate 05/26/2014 04182-Rpsosbzx Plate 12/12/2013 78886-Vmbgubzr Plate 02/24/2014 31763-Vovvniqa Plate 02/25/2013 97845-Zxlytdsy Plate 05/06/2013 80795-Vxjgppbk Plate 07/22/2013 70364-Cuvvlajn Plate 09/30/2013 39847-Bxrpqofp Plate 09/28/2011 15161-Gmycvegx Plate 12/28/2011 98446-Sormthjg Plate 03/28/2012 60365-Sniornck Plate 07/09/2012 06178-Bbczqnoq Plate 09/17/2012 38806-Yareqzvg Plate 12/17/2012 71011-Jnqfnflr Plate 04/07/2020 89491-Cowkczfi Plate 06/30/2020 64010-Akfmepie Plate 11/23/2020 82847-Lumqfpmg Plate 05/27/2021 33282-Lpkaekqv Plate 11/09/2021 09259-Guziodjd Plate 09/01/2022 58250-Kldnrfwe Plate Each Additional 02/2020 74756- Debride <25 sq cm 12/28/2020 86080- Debride <25 sq cm 02/15/2021 03467- Debride <25 sq cm 12/17/2012 73135- Debride <25 sq cm 09/17/2012 50321- Debride <25 sq cm 07/09/2012 68227- Debride <25 sq cm 03/28/2012 99286- Debride <25 sq cm 09/28/2011 55259- Debride <25 sq cm 12/28/2011 94274- Debride <25 sq cm 04/04/2011 54344- Debride <25 sq cm 07/07/2011 36484- Debride <25 sq cm 09/30/2013 55349- Debride <25 sq cm 07/22/2013 90655- Debride <25 sq cm 05/06/2013 53672- Debride <25 sq cm 02/25/2013 81403- Debride <25 sq cm 02/24/2014 39567- Debride <25 sq cm 12/12/2013 81352- Debride <25 sq cm 05/26/2014 14227- Debride <25 sq cm 08/07/2014 49980- Debride <25 sq cm 05/31/2016 41216- Debride <25 sq cm 02/16/2016 86596- Debride <25 sq cm 12/03/2015 45803- Debride <25 sq cm 09/24/2015 03202- Debride <25 sq cm 03/02/2015 40650- Debride <25 sq cm 05/04/2015 94183- Debride <25 sq cm 07/16/2015 09136- Debride <25 sq cm 10/16/2014 56355- Debride <25 sq cm 11/13/2014 84382- Debride <25 sq cm 12/11/2014 43770- Debride <25 sq cm 12/29/2014 86639 I&D ABSCESS- SIMPLE,SINGLE 015 28051 I&D ABSCESS- SIMPLE,SINGLE 014 41457 I&D ABSCESS- SIMPLE,SINGLE 015 94287 I&D ABSCESS- SIMPLE,SINGLE 03/17/2 015 86210 I&D ABSCESS- SIMPLE,SINGLE 013 74444 I&D ABSCESS- SIMPLE,SINGLE 013 41405 I&D ABSCESS- SIMPLE,SINGLE 013 62418-KECL SKIN LESIONS, 2 TO 4 01/14/20 11 28024-UTXA SKIN LESIONS, 2 TO 4 05/06/19 14 62243-EYQI SKIN LESIONS, 2 TO 4 07/23/19 14 72343-WALN SKIN LESIONS, 2 TO 4 10/01/19 14 55608-HYDJ SKIN LESIONS, 2 TO 4 05/27/19 15 89794-CICM SKIN LESIONS, 2 TO 4 08/08/19 15 29116-KREZ SKIN LESIONS, 2 TO 4 12/13/19 14 81673-AHVS SKIN LESIONS, 2 TO 4 02/25/20 14 99601-AIOD SKIN LESIONS, 2 TO 4 03/02/20 15 15615-QVUZ SKIN LESIONS, 2 TO 4 07/16/19 16 64938-KGSM SKIN LESIONS, 2 TO 4 05/04/19 16 69933-WRHU SKIN LESIONS, 2 TO 4 10/17/19 15 13106-AOSU SKIN LESIONS, 2 TO 4 12/30/19 15 17665-RQSO SKIN LESIONS, 2 TO 4 12/03/19 16 68604-NYWI SKIN LESIONS, 2 TO 4 02/16/20 16 89231-HIXX SKIN LESIONS, 2 TO 4 06/01/19 17 06111-SEDT SKIN LESIONS, 2 TO 4 09/30/19 20 89801-PBDY SKIN LESIONS, 2 TO 4 12/09/19 20 32530-WRJM SKIN LESIONS, 2 TO 4 04/07/19 21 16371-WTNB SKIN LESIONS, 2 TO 4 03/21/19 20 50360-DPNI SKIN LESIONS, 2 TO 4 07/22/19 20 48501-XMVC SKIN LESIONS, 2 TO 4 12/28/19 19 56862-UBYL SKIN LESIONS, 2 TO 4 06/26/19 19 48605-MQMN SKIN LESIONS, 2 TO 4 09/26/19 19 98510-RGFL SKIN LESIONS, 2 TO 4 01/09/20 18 45217-HUCO SKIN LESIONS, 2 TO 4 04/09/19 19 70983-DPEI SKIN LESIONS, 2 TO 4 08/31/19 17 07107-ALQX SKIN LESIONS, 2 TO 4 12/20/19 17 50450-UCZX SKIN LESIONS, 2 TO 4 03/23/19 35924-AWKQ SKIN LESIONS, 2 TO 4 06/02/19 75930-RXBF SKIN LESIONS, 2 TO 4 02/16/20 62063-FPWL SKIN LESIONS, 2 TO 4 05/28/19 22093-TFAD SKIN LESIONS, 2 TO 4 07/01/19 90846-KECB SKIN LESIONS, 2 TO 4 09/09/19 19620-VTED SKIN LESIONS, 2 TO 4 11/24/19 66801-MPTE SKIN LESIONS, 2 TO 4 11/10/19 68148-GAOM SKIN LESIONS, 2 TO 4 08/27/19 26540-AZGO SKIN LESIONS, 2 TO 4 05/31/19 89576-OJBR SKIN LESIONS, 2 TO 4 09/02/19 42225-RMRY SKIN LESIONS, 2 TO 4 12/02/19 29720-PISW SKIN LESIONS, 2 TO 4 02/17/20 42844-NILT SKIN LESIONS, 2 TO 4 04/20/19 99524-SYRR SKIN LESIONS, 2 TO 4 06/22/19 00066-XEXS SKIN LESIONS, 2 TO 4 08/24/19 46502-EMXI SKIN LESIONS, 2 TO 4 10/31/19 75209-RIKG SKIN LESIONS, 2 TO 4 01/02/20 34375-SXAP SKIN LESIONS, 2 TO 4 04/02/19 39883-ZJVJ SKIN LESIONS, 2 TO 4 06/04/19 71406-DAQI SKIN LESION 07/07/2011 96851-SPUE SKIN LESION 04/04/2011 83978-GFDN SKIN LESION 12/28/2011 67793-CUHO SKIN LESION 09/17/2012 30090-XHXQ SKIN LESION 09/28/2011 55100-ZTHN SKIN LESION 07/09/2012 55355-Tmod. Subungual Hematoma 3 84609-Bvjd. Subungual Hematoma 1 17573-RGUD NAIL(S) 01/13/2011 92920-IASR NAIL(S) 02/24/2014 65460-GGZQ NAIL(S) 12/12/2013 53378-WOUX NAIL(S) 08/07/2014 86299-MXUN NAIL(S) 05/26/2014 53674-AHYX NAIL(S) 09/30/2013 81875-HSEL NAIL(S) 07/22/2013 23238-WVFF NAIL(S) 05/06/2013 93111-VEBI NAIL(S) 09/24/2015 56148-HMBZ NAIL(S) 12/29/2014 89311-NRYQ NAIL(S) 10/16/2014 76652-VWME NAIL(S) 05/04/2015 56844-EEKA NAIL(S) 07/16/2015 46950-THXF NAIL(S) 03/02/2015 V0511-HYFXBAWJ DYSTROPHIC NAILS ANY # T7968-WBMGBAEJ DYSTROPHIC NAILS ANY # E6337-THMPDTAZ DYSTROPHIC NAILS ANY # D0095-KSCQTWOT DYSTROPHIC NAILS ANY # V7208-UTKXXFBY DYSTROPHIC NAILS ANY # R2107-TZZBSGVL DYSTROPHIC NAILS ANY # C4694-GOITYGUN DYSTROPHIC NAILS ANY # G1905-XSINFGWG DYSTROPHIC NAILS ANY # J2321-SNBIWTXF DYSTROPHIC NAILS ANY # F6982-JTNHBZSK DYSTROPHIC NAILS ANY # G9922-BWUBHTZA DYSTROPHIC NAILS ANY # O8226-SSOZLNEA DYSTROPHIC NAILS ANY # G5020-PKZLXWAM DYSTROPHIC NAILS ANY # J7943-SLHZCTYQ DYSTROPHIC NAILS ANY # S6541-ZHPTASNJ DYSTROPHIC NAILS ANY # A6265-GAZYUGKP DYSTROPHIC NAILS ANY # N3846-CTFGSMRI DYSTROPHIC NAILS ANY # U0778-WVSDKZNE DYSTROPHIC NAILS ANY # J8585-ZHHOFGGG DYSTROPHIC NAILS ANY # U9457-NENQKKDU DYSTROPHIC NAILS ANY # T3979-IEFUROMY DYSTROPHIC NAILS ANY # B3713-IHRZFVTT DYSTROPHIC NAILS ANY # A3755-YESVBZZT DYSTROPHIC NAILS ANY # F7882-AKHGVHZD DYSTROPHIC NAILS ANY # X3274-DNEUGDFP DYSTROPHIC NAILS ANY # Y6313-GYWZTBHM DYSTROPHIC NAILS ANY # W2344-NJSQZNEZ DYSTROPHIC NAILS ANY # O1070-YIMXHILY DYSTROPHIC NAILS ANY # M1086-XZENDGYD DYSTROPHIC NAILS ANY # A4047-DREIGBNO DYSTROPHIC NAILS ANY # N5160-AMCPYCEO DYSTROPHIC NAILS ANY # W6552-OZIXVTOZ DYSTROPHIC NAILS ANY # Z2432-QJOCCKXJ DYSTROPHIC NAILS ANY # J3313-OVWLDUAA DYSTROPHIC NAILS ANY # J0038-WPJLFXKK DYSTROPHIC NAILS ANY # Y4672-BAGUJVAK DYSTROPHIC NAILS ANY # B8408-HQDMPFYN DYSTROPHIC NAILS ANY # B7317-YCDWRGUP DYSTROPHIC NAILS ANY # M6538-JXALEXUW DYSTROPHIC NAILS ANY # B1454-VKLHICCL DYSTROPHIC NAILS ANY # A3538-GQKVOGRE DYSTROPHIC NAILS ANY # H8958-NXFPBNBX DYSTROPHIC NAILS ANY # Q9258-FQAANOSL DYSTROPHIC NAILS ANY # P1072-GMCNLAWS DYSTROPHIC NAILS ANY # R4411-BFRZXANJ DYSTROPHIC NAILS ANY # 54641-OJEGSRLZ OF HEMATOMA/FLUID 018 Next Appt Details Provider Name:Hortensia Sparrow , 08/05/2024 11:15:00 AM, [address] [place], [address], Provider Name:Hortensia Sparrow , 10/07/2024 11:15:00 AM, [address] [place], [address], Insurance Providers Payer Name Payer Address Payer Phone Subscriber Number Group Number Insured Name Patient Relationship to Insured Coverage Start Date Coverage End Date [employer] [address] [place] [address] [id number] Tay Elizabeth Self - patient is the insured 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
--- OUTSIDE RECORDS SUMMARY | 2024-06-10 11:16 | XMS_ITS | Encounter Summary ---
Author Name [facility] Organization [facility] [place] Address [address] [place] [address] Care Team Providers Care Touch Up Painter Hand Name Role Phone SCOOTERBONITA Primary Care Provider Unavailfranki WHITE, MOHAMUD Unavailable Unavailable BELA RODNEY Unavailable Unavailable LON CHIU Unavailable Unavailable PATRICIA YOUSSEF Unavailable Unavailable TELMA, MARY Unavailable Unavailfranki ERICKSON, PEBBLES Unavailable Unavailable MELANIA, CELE Unavailable Unavailable Insurance Providers: All historical and [...] Relationship to Policy Mueller [place] [facility] [place] [facility] Luiza Mar 12, 2016 [id number] PRIYANK TURPIN SEPH PATIENT MEDICARE (WNR) MEDICARE (M) PART B May 10, 2004 PART B [id number] PRIYANK TURPIN SEPH PATIENT MEDICARE (WNR) MEDICARE (M) PART B May 10, 2004 PART B [id number] PRIYANK TURPIN SEPH PATIENT MEDICARE (WNR) MEDICARE (M) PART A July 10, 1997 PART A [id number] [id number] [phone] PRIYANK TURPIN SEPH PATIENT MEDICARE (WNR) MEDICARE (M) PART A July 10, 1997 PART A [id number] [facility] PAPIPRIYANK HARJINDER PATIENT Selected Encounter This section includes the information on record at [place] for the Encounter. Date/Time Encounter Type Encounter Description Reason Pro vider Source IHE Encounter Template Text not used by [place] Advance Directives: All historical and current Section Date Range: From patient's date of to the date document was created. This section includes ALL of a patient's completed or amended [place] Advance and Rescinded Directives. The entries below indicate that a directive exists for the patient, but an actual copy is not included with this document. The data comes from all [place] facilities. Date Advance Directives Provider Source Jun 28, 2009 ADVANCE DIRECTIVE MANUELITO MORELOS
--- OUTSIDE RECORDS SUMMARY | 2024-06-10 11:16 | XMS_ITS | Encounter Summary ---
Author Name [facility] Organization [facility] [place] Address [address] [place] [address] Care Team Providers Care Hand Loom Weaver Name Role Phone SCOOTERBONITA Primary Care Provider Unavailfranki WHITE, MOHAMUD Unavailable Unavailable BELA RODNEY Unavailable Unavailable LON CHIU Unavailable Unavailable PATRICIA YOUSSEF Unavailable Unavailable TELMA, MARY Unavailable Unavailfranki ERICKSNO, PEBBLES Unavailable Unavailable MELANIA, CELE Unavailable Unavailable [...] Relationship to Policy Mueller [place] [facility] [place] [facility] Luiza Mar 12, 2016 [id number] PRIYANK TURPIN SEPH PATIENT MEDICARE (WNR) MEDICARE (M) PART B May 10, 2004 PART B [id number] [id number] PRIYANK TURPIN SEPH PATIENT MEDICARE (WNR) MEDICARE (M) PART B May 10, 2004 PART B [id number] PRIYANK TURPIN SEPH PATIENT MEDICARE (WNR) MEDICARE (M) PART A July 10, 1997 PART A [id number] [id number] [phone] PRIYANK TURPIN SEPH PATIENT MEDICARE (WNR) MEDICARE (M) PART A July 10, 1997 PART A [id number] [facility] [phone] PAPIPRIYANK HARJINDER PATIENT Selected Encounter This section includes the information on record at [place] for the Encounter. Date/Time Encounter Type Encounter Description Reason Pro vider Source IHE Encounter Template Text not used by [place] Advance Directives: All historical and current Section Date Range: From patient's date of to the date document was created. This section includes ALL of a patient's completed or amended [place] Advance and Rescinded Directives. The entries below indicate that a directive exists for the patient, but an actual copy is not included with this document. The data comes from all [place] facilities. Date Advance Directives Provider Source Jun 28, 2009 ADVANCE DIRECTIVE MANUELITO MORELOS
--- OUTSIDE RECORDS SUMMARY | 2024-06-10 11:17 | XMS_ITS | Encounter Summary ---
Author Name [facility] [place] Organization [facility] [place] Address [address] [place] [address] Care Team Providers Care Chain Maker Name Role Phone BONITA HELMS Primary Care [...] Mueller's Name Patient's Relationship to Policy Mueller [facility] MEDICARE SUPPLEMEN MEGHANA MEDEX ANDRY E Mar 12, 2016 [id number] PRIYANK TURPIN SEPH PATIENT MEDICARE (WNR) MEDICARE (M) PART B May 10, 2004 PART B [id number] [phone] PRIYANK TURPIN SEPH PATIENT MEDICARE (WNR) MEDICARE (M) PART B May 10, 2004 PART B [id number] [phone] PRIYANK TURPIN SEPH PATIENT MEDICARE (WNR) MEDICARE (M) PART A July 10, 1997 PART A [id number] PRIYANK TURPIN PATIENT MEDICARE (WNR) MEDICARE (M) PART A July 10, 1997 PART A [id number] [facility] PRIYANK TURPIN PATIENT Selected Encounter This section includes the information on record at [place] for the Encounter. Date/Time Encounter Type Encounter Description Reason Provider Source Feb 29, 2024 11:00 AM HEARING AID REPAIR/MODIFYING AUDIOLOGY ICD-10-CM Z46.1 Encounter for fitting and adjustment of hearing aid XAVIER CARMEN Encounter Template Text not used by [place] Assessments - Encounter Diagnoses This section includes the primary and secondary diagnoses documented for the Encounter. Date/Time Primary/Secondary Diagnosis Diagnosis Name Provider Source Feb 29, 2024 11:30 AM PRIMARY Encounter for fitting and adjustment of hearing aid CELE CAPPS Feb 29, 2024 11:30 AM SECONDARY Sensorineural hearing loss, bilateral CELE CAPPS Plan of Treatment: Future Appointments (+ 6 months) and Future Tests (+/- 45 days) The Plan of Treatment section includes future care activities for the [facility] [place] [facility] This section includes future appointments and future orders which are active, pending or scheduled. Future Appointments This section includes appointments that were scheduled to occur 6 months from the date of the Encounter, up to a maximum of 20 appointments. The data comes from all [place] treatment facilities. Appointment Date/Time Appointment Type Appointme nt Facility Name Mar 17, 2024 11:00 AM AMBULATORY - [place] [facility] [place] [facility] Apr 11, 2024 01:00 PM AMBULATORY - REHAB [facility] May 06, 2024 10:30 AM AMBULATORY - REHAB MEDICIN E [place] [facility] [place] [facility] May 22, 2024 11:30 AM AMBULATORY - MEDICINE [facility] [place] [facility] July 23, 2024 11:00 AM AMBULATORY - MEDICINE [place] [facility] [place] [facility] August 08, 2024 11:00 AM AMBULATORY - REHAB [facility] Lab Results: +/- 30 days of the encounter This section includes the Chemistry and Hematology Lab Results on record with [place] for the patient. Radiology Reports and Pathology Reports are provided separately, in subsequent sections. Lab Results This section contains the Chemistry/Hematology Results that were resulted 30 days before or 30 daysafter the date of the Encounter. Date/Time Source Result Type Result - Unit Interpretation Reference Range Comment Mar 17, 2024 11:31 AM [place] VITAMIN B12 Specimen Type: SERUM No comment entered. Ordering Provider: YENI PUENTES Report Released Date/Time: Jun 11, 2023 11:06 AM Reporting Lab[facility] [address] [address] Performing Lab: [facility] [place] [address] [address] VITAMIN B12 512 pg/mL 200-900 Mar 17, 2024 11:31 AM [place] FERRITIN Specimen Type: SERUM No comment entered. Ordering Provider: YENI PUENTES Report Released Date/Time: Jun 11, 2023 11:06 AM Reporting Lab: [facility] [address] [address] Performing Lab: [facility] [address] FERRITIN 57 ng/mL 20-300 Mar 17, 2024 11:31 AM [facility] TSH Specimen Type: SERUM No comment entered. Ordering Provider: YENI PUENTES Report Released Date/Time: Jun 11, 2023 11:06 AM Reporting Lab: [place] [facility] [place] [place] [address] [address] Performing Lab: [facility] [address] [address] TSH 3.25 u[IU]/mL 0.35-5.00 Mar 17, 2024 11:31 AM [place] HEMOGLOBIN A1C PANEL Specimen Type: BLOOD Comment: Values obtained from A1C measurements can vary. For atypical A1C assays, a reported value of 7.0 could actually be between 6.72 and 7.28 if measured by a reference method. A reported value of 9.0 could actually be between 8.73 and 9.27. Ref: http://www.ngs p.org/CAPdata. asp Ordering Provider: YENI PUENTES Report Released Date/Time: Jun 11, 2023 11:06 AM Reporting Lab: [facility] [address] Performing Lab: [address] [address] HEMOGLOBIN A1C 7.4 H 4.0-5.6 Mar 17, 2024 11:31 AM [place] MICROALBUMIN CREATININE RATIO PANEL Spe cimen Type: URINE No comment entered. Ordering Provider: YENI PUENTES Report Released Date/Time: Jun 11, 2023 11:06 AM Reporting Lab: [address] [address] Performing Lab: [address] [address] MICROALBUMIN/C REATININE RATIO 155.3 mg/g H 0-29.9 MICROALBUMIN,Q UANTITATIVE 41.2 mg/dL RR UNAVAIL CREATININE URINE 265.23 mg/dL Mar 17, 2024 11:31 AM [place] LIVER FUNCTION Specimen Type: SERUM No comment entered. Ordering Provider: YENI PUENTES Report Released Date/Time: Jun 11, 2023 11:06 AM Reporting Lab: [address] [address] Performing Lab: [address] [address] PROTEIN,TOTAL 7.2 g/dL 6.0-8.3 ALBUMIN 3.9 g/dL 3.5-5.0 ALKALINE PHOSPHATASE 86 U/L 40-150 AST 44 U/L H 5-34 ALT 28 U/L BILIRUBIN, TOTAL 0.4 mg/dL 0.2-1.2 Mar 17, 2024 11:31 AM [facility] URINALYSIS Specimen Type: URINE Comment: If Glucose = >500 and Ketones are positive, please alert the Physician. Ordering Provider: YENI PUENTES Report Released Date/Time: Jun 11, 2023 11:06 AM Reporting Lab: [address] [address] Performing Lab: [address] [address] UA COLOR Yellow Yellow UA APPEARANCE Turbid Clear UA GLUCOSE Normal mg/dL Negative UA KETONES TRACE mg/dL Negative UA BLOOD NEGATIVE mg/dL Negative UA PROTEIN 70 mg/dL Negative UA NITRITE NEGATIVE mg/dL Negative UA BILIRUBIN NEGATIVE mg/dL Negative UA SPECIFIC GRAVITY 1.022 1.016-1.022 UA pH 5.5 5.0-9.0 UA UROBILINOGEN Normal mg/dL <2.0 UA LEUKOCYTE TRACE Negative Mar 17, 2024 11:31 AM [place] BASIC METABOLIC PANEL (fasting) Specime n Type: SERUM No comment entered. Ordering Provider: YENI PUENTES Report Released Date/Time: Jun 11, 2023 11:06 AM Reporting Lab: [facility] [address] [facility] [address] Performing Lab: [address] [address] UREA NITROGEN 39 mg/dL H 7-25 GLUCOSE 121 mg/dL H 65-100 SODIUM 139 mmol/L 135-145 POTASSIUM 4.2 mmol/L 3.5-5.0 CHLORIDE 102 mmol/L 100-110 CO2 28 meq/L 20-30 CREATININE, Serum 1.83 mg/dL H 0.50-1.40 eGFR(CKD-EPI 2020) 36 mL/min L >60 Mar 17, 2024 11:31 AM [facility] LIPID PANEL FASTING Specimen Type: SERUM No comment entered. Ordering Provider: YENI PUENTES Report Released Date/Time: Jun 11, 2023 11:06 AM Reporting Lab: [facility] [address] [facility] [address] Performing Lab: [address] [address] CHOLESTEROL 113 mg/dL TRIGLYCERIDE 141 mg/dL 0-150 LDL calculated 57 mg/dL 0-129 CHOL/HDL 4.0 HDL CHOLESTEROL 28 mg/dL L 40-60 Mar 17, 2024 11:31 AM [place] CALCIUM Specimen Type: SERUM No comment entered. Ordering Provider: YENI PUENTES Report Released Date/Time: Jun 11, 2023 11:06 AM Reporting Lab: [facility] [address] [facility] [address] Performing Lab: [address] [address] CALCIUM 9.3 mg/dL 8.5-10.2 Mar 17, 2024 11:31 AM [place] URIC ACID Specimen Type: SERUM No comment entered. Ordering Provider: YENI PUENTES Report Released Date/Time: Jun 11, 2023 11:06 AM Reporting Lab: [facility] [address] [facility] [address] Performing Lab: [facility] [address] [facility] [address] URIC ACID 6.4 mg/dL 3.5-7.2 Mar 17, 2024 11:31 AM [place] VITAMIN D (25-OH) Specimen Type: SERUM No comment entered. Ordering Provider: YENI PUENTES Report Released Date/Time: Jun 11, 2023 11:06 AM Reporting Lab: [address] [address] Performing Lab: [address] [address] VITAMIN D (25-OH) 26 ng/mL 20-50 Mar 17, 2024 11:31 AM [facility] MICROSCOPIC AUTOMATED, URINE Specimen T ype: URINE Comment: If Glucose = >500 and Ketones are positive, please alert the Physician. Ordering Provider: YENI PUENTES Report Released Date/Time: Jun 11, 2023 11:06 AM Reporting Lab: [address] [address] Performing Lab: [address] [address] UA WBC 0-5 /[HPF] 0-5 UA MUCUS MODERATE /[LPF] Trace UA HYALINE CASTS 5-9 /[LPF] H 0-2 UA RBC 0-2 /[HPF] 0-3 UA SQUAMOUS EPITH FEW /[HPF] Mar 17, 2024 11:31 AM [facility] CBC AND DIFF (AUTO) Specimen Type: BLOOD No comment entered. Ordering Provider: YENI PUENTES Report Released Date/Time: Jun 11, 2023 11:06 AM Reporting Lab: [facility] [address] [facility] [address] Performing Lab: [address] [address] WBC 6.12 10*3/uL 4.50-11.00 RBC 4.58 10*6/uL 4.23-5.66 HGB 13.3 g/dL 12.8-17 HCT 40.4 39.2-50.4 MCV 88.2 fL 82-99 MCHC 32.9 g/dL 30.8-35.1 PLT 163 10*3/uL 140-360 RDW-CV 14.3 12.0-16.0 MONO, ABS 0.58 10*3/uL 0.30-1.10 MCH 29.0 pg 26.2-32.6 NEUT % 68.1 43.7-75.8 LYMPH % 18.8 14.0-42.3 MONO % 9.5 5.1-13.7 EOS % 2.3 0.4-6.8 BASO % 0.8 0.1-2.0 NEUT, ABS 4.17 10*3/uL 2.20-7.60 LYMPH, ABS 1.15 10*3/uL 1.00-3.20 EOS, ABS 0.14 10*3/uL 0.03-0.44 BASO, ABS 0.05 10*3/uL 0.01-0.13 IMMATURE GRAN % 0.5 0.0-0.7 IMMATURE GRAN, ABS 0.03 10*3/uL 0.00-0.06 NRBC % 0.0 0.0-0.0 NRBC, ABS 0.00 10*3/uL 0.00-0.00 Vital Signs: All taken on the encounter date This section contains inpatient and outpatient Vital Signs collected on the date of the Encounter. Date/Time Temperature Pulse Blood Pressure Respiratory Rate SP02 Pain Height Weight Body Mass Index Source Feb 29, 2024 11:30 AM 97.6 52 114/66 16 98 2 [place] Social History: Smoking Status (Most current) and Tobacco Use (All prior to encounter date) This section includes the most current, and the historical, smoking and tobacco- related health factors from the [place] facility where the Encounter took place. Current Smoking Status This section includes the most current smoking, or tobacco-related health factor, from the [place] facility where the Encounter took place. Date/Time Current Smoking Status Comment Kathy unger Jun 11, 2023 10:30 AM [place]-TOBACCO FORMER USER [facility] Tobacco Use History This section includes a history of the smoking, or tobacco-related health factors, that were collected on or before the date of the Encounter. The data comes from the [place] facility where the Encounter took place. Date/Time Smoking Status/Tobacco Use Comment F acility Jun 11, 2023 10:30 AM VA-TOBACCO QUIT 15 YRS OR MORE [facility] Feb 18, 2021 01:30 PM VA-TOBACCO NEVER USED [facility] Jan 13, 2020 10:00 AM VA-TOBACCO NEVER USED [place] May 09, 2017 11:00 AM QUIT TOBACCO USE > 7 YEARS AGO does not smoke [facility] July 18, 2016 10:35 AM LIFETIME NON-TOBACCO USER [place] May 11, 2015 10:13 AM QUIT TOBACCO USE > 7 YEARS AGO [facility] Jan 27, 2005 09:24 AM HISTORY OF SMOKING 1986 [facility] Feb 23, 2004 02:53 PM HISTORY OF SMOKING stopped tobacco 17 years ago [place] Feb 23, 2004 02:53 PM QUIT TOBACCO USE > 7 YEARS AGO stopped tobacco 17 years ago [place] Feb 14, 2001 09:55 AM HISTORY OF SMOKING [facility] Feb 14, 2001 09:55 AM NON-TOBACCO USER quit x 14yrs. [facility] Advance Directives: All historical and current Section Date Range: From patient's date of to the date document was created. This section includes ALL of a patient's completed or amended [place] Advance and Rescinded Directives. The entries below indicate that a directive exists for the patient, but an actual copy is not included with this document. The data comes from all [facility]. Date Advance Directives Provider Source Jun 28, 2009 ADVANCE DIRECTIVE MANUELITO MORELOS Encounter Notes: All associated encounter notes This section contains the clinical notes associated to the Encounter. Date/Time Encounter Note(s) Provider Source Feb 29, 2024 07:28 AM AUDIOLOGY NOTE: LOCAL TITLE: AUDIOLOGY HEALTH SEED SPECIALIST STANDARD TITLE: AUDIOLOGY NOTE DATE OF NOTE: FEB 29, 2024@07:28 ENTRY DATE: FEB 29, 2024@07:28:57 AUTHOR: CELE CAPPS COSIGNER: XAVIER CARMEN URGENCY: STATUS: COMPLETED February 29, 2024 History/Background: was seen for a hearing aid follow up at the [facility], accompanied by his . The presented today for routine hearing aid maintenance. The stated his Ravin Evolv hearing aids have been working intermittent and he is getting air sounds when wearing them. He also noted the earmolds are not fitting his ears as well as they use to. The Veterans noted he has lost 50+ pounds and is wondering if this could be why the earmolds don't fit right. Hearing aids: Ravin EVOLV AI POWER+ BTEs Serial Numbers: [id number] Battery size: 13 Date Issued: 04/17/2022 AND Hearing aids: Ravin GISEL EDGE AI BTEs Serial Numbers: [id number] Battery size: 13 Date Issued: 06/04/2020 Hearing aid check: Both sets of hearing aids were cleaned and checked. Replaced tubes, tonehooks and nato covers. Biologic check was good for all 4 hearing aids. The 's last impressions were taken in 2012. It is recommended that the [place] return to the clinic to have new ear impressions taken for an updated secure fit, as weight loss is likely contributing to the current loose fit. Plan: RTC for routine maintenance on 03/17/2024 @ 1100 in [place] for new ear impressions. The [place] is requesting earmolds for his Ravin Evolv AND Gisel hearing aids. /devon/ CELE CAPPS Audiology Health Supply Manager Signed: 02/29/2024 13:43 /es/ XAVIER Barkley CCC-A CHIEF, AUDIOLOGY/MAINTENANCE MECHANIC TECHNICIAN Cosigned: 02/29/2024 14:46 Receipt Acknowledged By: 02/29/2024 15:16 /es/ FINESSE GILBERT SUPERVISORY VENEREAL DISEASE INVESTIGATOR CELE CAPPS [facility]
--- OUTSIDE RECORDS SUMMARY | 2024-06-10 11:17 | XMS_ITS | Encounter Summary ---
Author Name [facility] [place] [facility] Address [address] [place] [address] Care Team Providers Care Storage Garage Manager Name Role Phone BONITA HELMS Primary Care [...] Mueller's Name Patient's Relationship to Policy Mueller [facility] MEDICARE SUPPLEMEN MEGHANA MEDEX ANDRY E Mar 12, 2016 [id number] PRIYANK TURPIN SEPH PATIENT MEDICARE (WNR) MEDICARE (M) PART B May 10, 2004 PART B [id number] [phone] PRIYANK TURPIN SEPH PATIENT MEDICARE (WNR) MEDICARE (M) PART B May 10, 2004 PART B [id number] PRIYANK TURPIN SEPH PATIENT MEDICARE (WNR) MEDICARE (M) PART A July 10, 1997 PART A [id number] PRIYANK TURPIN PATIENT MEDICARE (WNR) MEDICARE (M) PART A July 10, 1997 PART A [id number] [facility] PRIYANK TURPIN PATIENT Selected Encounter This section includes the information on record at [place] for the Encounter. Date/Time Encounter Type Encounter Description Reason Provider Source Apr 11, 2024 01:00 PM HEARING AID REPAIR/MODIFYING AUDIOLOGY ICD-10-CM Z46.1 Encounter for fitting and adjustment of hearing aid ALEXANDRO KAT Encounter Template Text not used by [place] Assessments - Encounter Diagnoses This section includes the primary and secondary diagnoses documented for the Encounter. Date/Time Primary/Secondary Diagnosis Diagnosis Name Provider Source Apr 11, 2024 01:29 PM PRIMARY Encounter for fitting and adjustment of hearing aid CELE CAPPS Apr 11, 2024 01:29 PM SECONDARY Sensorineural hearing loss, bilateral CELE CAPPS Plan of Treatment: Future Appointments (+ 6 months) and Future Tests (+/- 45 days) The Plan of Treatment section includes future care activities for the patient [facility] [place] [facility] This section includes future appointments and future orders which are active, pending or scheduled. Future Appointments This section includes appointments that were scheduled to occur 6 months from the date of the Encounter, up to a maximum of 20 appointments. The data comes from all [place] treatment facilities. Appointment Date/Time Appointment Type Appointme nt Facility Name May 06, 2024 10:30 AM [facility] May 22, 2024 11:30 AM AM[facility]ULAT[facility] - MEDICINE [facility] [place] [facility] July 23, 2024 11:00 AM AMBULATORY MEDICINE [facility] August 08, 2024 11:00 AM AMBULATORY - REHAB [facility] Sep 03, 2024 12:30 PM AMBULATORY MEDICINE [facility] Lab Results: +/- 30 days of the [...] Range Comment Mar 17, 2024 11:31 AM [place] VITAMIN B12 Specimen Type: SERUM No comment entered. Ordering Provider: YENI PUENTES Report Released Date/Time: Jun 11, 2023 11:06 AM Reporting Lab: [place] [facility] [address] [address] Performing Lab: [facility] [address] [address] VITAMIN B12 512 pg/mL 200-900 Mar 17, 2024 11:31 AM [place] FERRITIN Specimen Type: SERUM No comment entered. Ordering Provider: YENI PUENTES Report Released Date/Time: Jun 11, 2023 11:06 AM Reporting Lab: [facility] [place] [facility] [address] [address] Performing Lab: [facility] [address] [address] FERRITIN 57 ng/mL 20-300 Mar 17, 2024 11:31 AM [place] HEMOGLOBIN A1C PANEL Specimen Type: BLOOD Comment: [...] Jun 11, 2023 11:06 AM Reporting Lab: [facility] [place] [facility] [address] [address] Performing Lab: [facility] [address] [address] HEMOGLOBIN A1C 7.4 H 4.0-5.6 Mar 17, 2024 11:31 AM [place] TSH Specimen Type: SERUM No comment entered. Ordering Provider: YENI PUENTES Report Released Date/Time: Jun 11, 2023 11:06 AM Reporting Lab: [place] [facility] [address] [address] Performing Lab: [facility] [address] [address] TSH 3.25 u[IU]/mL 0.35-5.00 Mar 17, 2024 11:31 AM [place] CALCIUM Specimen Type: SERUM No comment entered. Ordering Provider: YENI PUENTES Report Released Date/Time: Jun 11, 2023 11:06 AM Reporting Lab: [address] [address] Performing Lab: [address] [address] CALCIUM 9.3 mg/dL 8.5-10.2 Mar 17, 2024 11:31 AM [place] URINALYSIS Specimen Type: URINE Comment: If Glucose = >500 and Ketones are positive, please alert the Physician. Ordering Provider: YENI PUENTES Report Released Date/Time: Jun 11, 2023 11:06 AM Reporting Lab: [address] [address] Performing Lab: [address] [address] UA COLOR Yellow Yellow UA APPEARANCE Turbid Clear UA GLUCOSE Normal mg/dL Negative UA KETONES TRACE mg/dL Negative UA BLOOD NEGATIVE mg/dL Negative UA PROTEIN 70 mg/dL Negative UA NITRITE NEGATIVE mg/dL Negative UA BILIRUBIN NEGATIVE mg/dL Negative UA SPECIFIC GRAVITY 1.022 1.016-1.022 UA pH 5.5 5.0-9.0 UA UROBILINOGEN Normal mg/dL <2.0 UA LEUKOCYTE TRACE Negative Mar 17, 2024 11:31 AM [place] LIPID PANEL FASTING Specimen Type: SERUM No comment entered. Ordering Provider: YENI PUENTES Report Released Date/Time: Jun 11, 2023 11:06 AM Reporting Lab: [address] [address] Performing Lab: [address] [address] CHOLESTEROL 113 mg/dL TRIGLYCERIDE 141 mg/dL 0-150 LDL calculated 57 mg/dL 0-129 CHOL/HDL 4.0 HDL CHOLESTEROL 28 mg/dL L 40-60 Mar 17, 2024 11:31 AM [place] LIVER FUNCTION Specimen Type: SERUM No comment entered. Ordering Provider: YENI PUENTES Report Released Date/Time: Jun 11, 2023 11:06 AM Reporting Lab: [facility] [address] [address] Performing Lab: [address] [address] PROTEIN,TOTAL 7.2 g/dL 6.0-8.3 ALBUMIN 3.9 g/dL 3.5-5.0 ALKALINE PHOSPHATASE 86 U/L 40-150 AST 44 U/L H 5-34 ALT 28 U/L BILIRUBIN, TOTAL 0.4 mg/dL 0.2-1.2 Mar 17, 2024 11:31 AM [place] BASIC METABOLIC PANEL (fasting) Specime n Type: SERUM No comment entered. Ordering Provider: YENI PUENTES Report Released Date/Time: Jun 11, 2023 11:06 AM Reporting Lab: [address] [address] Performing Lab: [address] [address] UREA NITROGEN 39 mg/dL H 7-25 GLUCOSE 121 mg/dL H 65-100 SODIUM 139 mmol/L 135-145 POTASSIUM 4.2 mmol/L 3.5-5.0 CHLORIDE 102 mmol/L 100-110 CO2 28 meq/L 20-30 CREATININE, Serum 1.83 mg/dL H 0.50-1.40 eGFR(CKD-EPI 2020) 36 mL/min L >60 Mar 17, 2024 11:31 AM [place] URIC ACID Specimen Type: SERUM No comment entered. Ordering Provider: YENI PUENTES Report Released Date/Time: Jun 11, 2023 11:06 AM Reporting Lab: [facility] [address] [address] Performing Lab: [address] [address] URIC ACID 6.4 mg/dL 3.5-7.2 Mar 17, 2024 11:31 AM [place] MICROALBUMIN CREATININE RATIO PANEL Spe cimen Type: URINE No comment entered. Ordering Provider: YENI PUENTES Report Released Date/Time: Jun 11, 2023 11:06 AM Reporting Lab: [facility] [address] [address] Performing Lab: [address] [address] MICROALBUMIN/C REATININE RATIO 155.3 mg/g H 0-29.9 MICROALBUMIN,Q UANTITATIVE 41.2 mg/dL RR UNAVAIL CREATININE URINE 265.23 mg/dL Mar 17, 2024 11:31 AM [place] VITAMIN D (25-OH) Specimen Type: SERUM No comment entered. Ordering Provider: YENI PUENTES Report Released Date/Time: Jun 11, 2023 11:06 AM Reporting Lab: [address] [address] Performing Lab: [address] [address] VITAMIN D (25-OH) 26 ng/mL 20-50 Mar 17, 2024 11:31 AM [place] MICROSCOPIC AUTOMATED, URINE Specimen T ype: URINE Comment: If Glucose = >500 and Ketones are positive, please alert the Physician. Ordering Provider: YENI PUENTES Report Released Date/Time: Jun 11, 2023 11:06 AM Reporting Lab: [address] [address] Performing Lab: [address] [address] UA WBC 0-5 /[HPF] 0-5 UA MUCUS MODERATE /[LPF] Trace UA HYALINE CASTS 5-9 /[LPF] H 0-2 UA RBC 0-2 /[HPF] 0-3 UA SQUAMOUS EPITH FEW /[HPF] Mar 17, 2024 11:31 AM [place] CBC AND DIFF (AUTO) Specimen Type: BLOOD No comment entered. Ordering Provider: YENI PUENTES Report Released Date/Time: Jun 11, 2023 11:06 AM Reporting Lab: [address] [address] Performing Lab: [address] [address] WBC 6.12 10*3/uL 4.50-11.00 RBC 4.58 10*6/uL [...] 0.0 0.0-0.0 NRBC, ABS 0.00 10*3/uL 0.00-0.00 Social History: Smoking Status (Most current) and [...] place. Date/Time Current Smoking Status Comment Kathy ity Jun 11, 2023 10:30 AM [place]-TOBACCO FORMER USER [place] Tobacco Use History This section includes a history of the smoking, or tobacco-related health factors, that were collected on or before the date of the Encounter. The data comes from the [place] facility where the Encounter took place. Date/Time Smoking Status/Tobacco Use Comment F acnivia Jun 11, 2023 10:30 AM [place]-TOBACCO QUIT 15 YRS OR MORE [place] Feb 18, 2021 01:30 PM [place]-TOBACCO NEVER USED [place] Jan 13, 2020 10:00 AM VA-TOBACCO NEVER USED [place] May 09, 2017 11:00 AM QUIT TOBACCO USE > 7 YEARS AGO does not smoke [place] July 18, 2016 10:35 AM LIFETIME NON-TOBACCO USER [place] May 11, 2015 10:13 AM QUIT TOBACCO USE > 7 YEARS AGO [place] Jan 27, 2005 09:24 AM HISTORY OF SMOKING 1987 [place] Feb 23, 2004 02:53 PM HISTORY OF SMOKING stopped tobacco 17 years ago [place] Feb 23, 2004 02:53 PM QUIT TOBACCO USE > 7 YEARS AGO stopped tobacco 17 years ago [place] Feb 14, 2001 09:55 AM HISTORY OF SMOKING [place] Feb 14, 2001 09:55 AM NON-TOBACCO USER quit x 14yrs. [place] Advance Directives: All historical and current Section Date Range: From patient's date of to the date document was created. This section includes ALL of a patient's completed or amended [place] Advance and Rescinded Directives. The entries below indicate that a directive exists for the patient, but an actual copy is not included with this document. The data comes from all [place] facilities. Date Advance Directives Provider Source Jun 28, 2009 ADVANCE DIRECTIVE MANUELITO MORELOS Encounter Notes: All associated encounter notes This section contains the clinical notes associated to the Encounter. Date/Time Encounter Note(s) Provider Source Apr 11, 2024 07:45 AM AUDIOLOGY NOTE: LOCAL TITLE: AUDIOLOGY HEALTH RESIDENTIAL PROGRAM COORDINATOR STANDARD TITLE: AUDIOLOGY NOTE DATE OF NOTE: APR 11, 2024@07:45 ENTRY DATE: APR 11, 2024@07:45:31 AUTHOR: CELE CAPPS EXP COSIGNER: ALEXANDRO KAT URGENCY: STATUS: COMPLETED April 11, 2024 History/Background: was seen for a hearing aid follow up at the [facility], unaccompanied. The presented today to picker and sorter load and unload his new skeleton earmolds. The had previously reported weight loss and since then a less secure fit of his earmolds. Hearing aids: Ravin EVOLV AI POWER+ BTEs Serial Numbers: [id number] Battery size: 13 Date Issued: 04/17/2022 AND Hearing aids: Ravin GISEL EDGE AI BTEs Serial Numbers: [id number] Battery size: 13 Date Issued: 06/04/2020 Hearing aid check: Both sets of hearing aids were cleaned and checked. Attached 13 thick tubes and inserted the earmolds to cut to length. Upon initial insertion, the fit was slightly tight and somewhat difficult especially on the left side. However, the earmolds were eventually inserted successfully. The [place] was given the hearing aids to practice insertion and removal in the clinic and he able to insert them more easily. The expressed satisfaction with the secure fit. He will contact the clinic should the earmolds cause any discomfort. The [place] was given his original earmolds back with tubes and tonehooks attached should he wish to go back to wearing those. Plan: If the contacts the clinic due to ear pain from the new earmolds, he should be scheduled in [place] to have them filed down. /devon/ CELE CAPPS Audiology Health Machine Operator Helper Signed: 04/11/2024 13:30 /devon/ Caro RANDHA[place], [facility] Ballast Inspector Chief, Audiology Cosigned: 04/11/2024 14:44 CELE CAPPS [place]
--- OUTSIDE RECORDS SUMMARY | 2024-06-10 11:17 | XMS_ITS ---
Care Plan - [facility] Created on: June 10, 2024 Tay Elizabeth : 1940 Sex: Male Author Organization [facility] Address [address] [place] [address] Phone Care Team Providers Care Vertical Mill Operator Name Role Phone William Mcghee DO Primary Care Provider [phone] [facility], Unavailable [phone]
--- OUTSIDE RECORDS SUMMARY | 2024-06-10 11:17 | XMS_ITS | Encounter Summary ---
Author Organization [facility] Address [address] [place] [phone] Phone Care Team Providers Care Liability Claims Examiner Name Role Phone William Mcghee DO Primary Care Provider [phone] Encounter Details Date Type Department Care Team (Late st Contact Info) Description 04/05/2018 Transcribe Orders [facility] [address] [place] [phone] Hubert Marrufo [address] [place] [id number] [email or web address] Social History Tobacco Use Types Packs/Day Years Used Date Smoking Tobacco: Former Cigarettes 2 15 262 - 1986 Smokeless Tobacco: Never Alcohol Use Standard Drinks/Week [...] on file documented as of this encounter Results * XR Lower Extremity Outside (No Interpretation) (04/05/2018 12:00 PM EST) Narrative [facility] - 04/05/2018 12:00 PM EST This study is for PACS storage only and not for interpretation. 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 It is not the complete legal health record.[facility]
--- OUTSIDE RECORDS SUMMARY | 2024-06-10 11:18 | XMS_ITS | Clinical Summary ---
Author Organization [facility] Address [address] [place] [phone] Phone Care Team Providers Care Nuclear Medicine Medical Director Name Role Phone William Mcghee DO Primary Care Provider [phone] Allergies Active Allergy Reactions Criticality Noted Date Comments Guaifenesin Other (See Comments) Medium 01/11/2017 Skin peeling - hands Iodinated Contrast Media Rash Medium 10/16/2008 Scopolamine Mental Status Change 12/07/2008 Medications Medication Sig Dispensed Refills Start Date End Date Status aspirin 81 MG EC tablet Take 81 mg by mouth daily. Active sertraline (ZOLOFT) 100 MG tablet Take 100 mg by mouth 2 (two) times a day. Active atorvastatin (LIPITOR) 80 MG tablet Take 80 mg by mouth daily. Active pancrelipase, nxmtup-keaqlzye-iz ylase, (CREON) 24,000-76,000 -120,000 unit CpDR 24,000 units of lipase as directed. Active cholecalciferol (VITAMIN D3) 2,000 unit capsule Take 2,000 Units by mouth daily. Active bacillus coagulans-inulin 1 billion-250 cell-mg Cap Take 250 mg by mouth daily. Active therapeutic multivitamin tablet Take 1 tablet by mouth daily. Active subcutaneous insulin pump (MINIMED 530G INSULIN PUMP) Misc by Miscellaneous route. MEDTRONIC MINIMED INSULIN PUMP - unclear if 530 G. Humalog insulin Active clopidogrel (PLAVIX) 75 mg tablet Take 75 mg by mouth daily. Active metoprolol tartrate (LOPRESSOR) 25 MG tablet Take 1 tablet (25 mg total) by mouth 2 (two) times a day. 06/12/2017 Active acetaminophen (TYLENOL) 325 mg tablet Take 2 tablets (650 mg total) by mouth every 6 (six) hours as needed for mild pain or fever. 112 tablet 07/03/2017 Active Additional Information Patient not taking.Reported on 10/08/2019 oxyCODONE 5 MG immediate release tablet Take 0.5-1 tablets (2.5-5 mg total) by mouth every 6 (six) hours as needed for severe pain. Pt. may request partial fill. Wean as tolerated. 28 tablet 07/03/2017 Active Additional Information Patient not taking.Reported on 10/08/2019 amoxicillin (AMOXIL) 500 MG capsule Take 1 capsule (500 mg total) by mouth 3 (three) times a day. 126 capsule 07/03/2017 Active DOXYCYCLINE HYCLATE ORAL Take by mouth. Active lisinopril (PRINIVIL,ZESTRIL) 2.5 MG tablet Take 2.5 mg by mouth daily. Active oxybutynin (DITROPAN-XL) 10 MG 24 hr tablet Take 10 mg by mouth daily. Active alfuzosin (UROXATRAL) 10 mg 24 hr tablet Take 10 mg by mouth daily. 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 Overview (05/01/2014): Coronary arteriosclerosis Diabetes mellitus 06/13/2013 Overview (05/01/2014): Diabetes mellitus Hypertensive disorder 06/13/2013 Overview (05/01/2014): Hypertensive disorder Immunizations Name Administration Dates Next Due Influenza, Unspecified Formulation 06/05/2013(De ferred: Other),11/26/2008 Pneumococcal, Unspecified Formulation 06/05/2013 (Deferred: Other) Family History Medical History Relation Comments Coronary artery disease Brother 2 Sick sinus syndrome Brother 2 pacemaker Coronary artery disease Brother 3 Coronary artery disease Brother 4 Coronary artery disease Brother 5 Coronary artery disease Brother 6 Coronary artery disease Brother 7 Aneurysm Father Coronary artery disease Father Diabetes type II Father Early Father Diabetes type II Mother Early CAD Mother Stroke Mother Coronary artery disease Sister 1 Coronary artery disease Sister 2 Coronary artery disease Sister 3 Coronary artery disease Sister 4 Joel-Sachs disease Son 2 Relation Status Comments Brother 1 Alive Brother 2 Alive Brother 3 Brother 4 Brother 5 Brother 6 Brother 7 Father (Age 67) [place] Mother (Age 57) heart attack Sister 1 (Age 92) CAD Sister 2 Sister 3 Sister 4 Son 1 Son 2 Social History Tobacco Use Types Packs/Day Years Used Date Smoking Tobacco: Former Cigarettes 2 15 [id number] Smokeless Tobacco: Never Alcohol Use Standard Drinks/Week Comments Yes 0 (1 standard drink = 0.6 oz pur e alcohol) 1 beer per week or less Education Answer Date Recorded Are you interested in more education? Not on nish e 07/24/2022 Are you concerned about learning? Not on file 07/24/2022 No 07/24/2022 No 07/24/2022 Digital Access Answer Date Recorded No 08/06/2022 No 08/06/2022 No 08/06/2022 Reliable internet access at home? Not on file 08/06/2022 Device with a working camera? Not on file Sex and Gender Information Value Date Recorded Sex Assigned at Male 03/19/2017 9:29 AM EST Gender Identity Male 03/19/2017 9:29 AM EST Sexual Orientation Straight 03/19/2017 9: 29 AM EST Last Filed Vital Signs Vital Sign Reading Time Taken Comments Blood Pressure 144/75 04/29/2019 11:31 AM EST Pulse 52 04/29/2019 11:31 AM EST Temperature 37.3 ??C (99.2 ??F) 10/08/2019 10:48 AM E DT Respiratory Rate 16 07/04/2017 8:03 AM EDT Oxygen Saturation 96% 04/29/2019 11:31 AM EST Inhaled Oxygen Concentration - - Weight 88.5 kg (195 lb) 10/08/2019 10:48 AM EDT Height 167.6 cm (5' 6 ) 10/08/2019 10:48 AM EDT Body Mass Index 31.47 10/08/2019 10:48 AM EDT Plan of Treatment Health Maintenance Due Date Last Done Comments Adult Td,Tdap Booster 1940 BLOOD PRESSURE 1940 PNEUMOCOCCAL VACCINES (50+ years) (1 of 2 - PCV) 05/18/1958 ZOSTER VACCINES (1 of 2) 05/18/1989 DIABETIC EYE EXAM 05/07/2014 RSV VACCINE (1 - 1-dose 75+ series) 05/18/2014 HEMOGLOBIN A1C 12/12/2017 06/12/2017, 04/12, 08/10/2016, Additional history exists CREATININE LEVEL 07/04/2018 07/04/2017, , 07/02/2017, Additional history exists POTASSIUM LEVEL 07/04/2018 07/04/2017, 06/11, 07/02/2017, Additional history exists DEPRESSION SCREENING 07/16/2018 07/16/2017 INFLUENZA VACCINE (#1) 2023 12/11/2018, 2008 COVID-19 VACCINE ( season) 2023 05/14/2020, 04/16/2020 HEPATITIS A VACCINES Aged Out No long er eligible based on patient's age to complete this topic HIB VACCINES Aged Out No longer eligi ble based on patient's age to complete this topic MENINGOCOCCAL VACCINES (ACWY) Aged Out No longer eligible based on patient's age to complete this topic Medical Devices Implanted Type Area Vault Custodian Device Identifier Shelf Expiration Date Model / Serial / Lot Pin Orthopedic [id number] Smooth Double Sharp Tip S/S Steinmann Pk/6ea - [id number] Implanted:Qty: 1 on 01/15/2017 by Sourav Rodriguez MD at [facility] STANDARD Left: Knee [employer] 04/17/2018 1636-109 / / [id number] Description:antibiotic cemen t surrounded steiman pin and placed in femoral canal of left leg after explantation of total knee implants Pin Orthopedic [id number] Smooth Double Sharp Tip S/S Steinmann Pk/6ea - [id number] Implanted:Qty: 1 on 01/15/2017 by Sourav Rodriguez MD at [facility] STANDARD Knee [employer] 12/15/2017 1636-109 / / [id number] Description:antibiotic cemen t surrounded steiman pin. Sternal Wires Cement Bone Simplex P Full Dose Bx/1ea - [id number] Implanted:Qty: 2 on 01/15/2017 by Sourav Rodriguez MD at [facility] Left: Knee [employer] 07/10/2019 [id number] / / [id number] Description:each bag ofcemen t mixed with 2 gms of vancomycin powder and tobramycin 1.6gms Knee Nail Fusion 11.8vod92ja - [id number] Implanted:Qty: 1 on 06/28/2017 by Maulik Velasquez MD at [facility] Left: Knee BORJA 07/12/2025 [id number] / / [id number] Screw Bone 6.4x85mm Recon Screw Implanted:Qty: 1 on 06/28/2017 by Maulik Velasquez MD at [facility] Left: Knee BORJA AND NEPHEW 03/14/2027 / / [id number] Screw Bone 6.4x85 Mm Recon Screw Implanted:Qty: 1 on 06/28/2017 by Maulik Velasquez MD at [facility] Left: Knee BORJA 02/13/2027 / / [id number] Screw Trigen Low Profile 9dln09io - [id number] Implanted:Qty: 1 on 06/28/2017 by Maulik Velasquez MD at [facility] Left: Knee BORJA 02/08/2026 [id number] / / [id number] Screw Recon Hex Internal 6.4x85mm - [id number] Implanted:Qty: 1 on 06/28/2017 by Maulik Velasquez MD at [facility] 03/14/2027 [id number] / / [id number] Description:Transfered from one time inplant Screw Recon Hex Internal 6.4x85mm - [id number] Implanted:Qty: 1 on 06/28/2017 by Maulik Velasquez MD at [facility] 02/13/2027 [id number] / / [id number] Description:Transfered from one time implant Procedures Procedure Name Priority Date/Time Associated Diagnosis Comments BASIC METABOLIC PANEL Routine 07/04/2017 6:19 AM EDT HEMOGLOBIN A1C Routine 06/12/2017 11:30 AM EDT Pre-op evaluation from Last 3 Months or Most Recently Relevant to Health Maintenance Results * (ABNORMAL) Basic metabolic panel (07/04/2017 6:19 AM EDT) SODIUM 140 136 - 145 mmol/L [facility] POTASSIUM 4.6 3.4 - 5.0 mmol/L [facility] CHLORIDE 102 98 - 107 mmol/L [facility] CO2 27 22 - 31 mmol/L [facility] BUN 28(H) 6 - 23 mg/dL [facility] CREATININE 0.86 0.50 - 1.20 mg/dL [facility] GLUCOSE 74 70 - 100 mg/dL [facility] CALCIUM 8.3(L) 8.8 - 10.7 mg/dL [facility] EGFR 83 >59 mL/min/1.7 3m2 [facility] Comment:If patient is black, multiply result by 1.159. Estimated glomerular filtration rate calculated using the CKD-EPI equation. ANION GAP 11 7 - 17 mmol/L [facility] Blood 07/04/2017 6:19 AM EDT 07/04/2017 6:38 AM EDT Maulik Velasquez MD LAB BLOOD ORDERAB LES Performing Organization Address City/State/[facility] Co de Phone Number [facility] [address] [place] [phone] * (ABNORMAL) Hemoglobin A1c (06/12/2017 11:30 AM EDT) HEMOGLOBIN A1C 7.8(H) 4.2 - 5.8 % [facility] CALC MEAN BLD GLUC 177 mg/dL [facility] Comment: There is no established normal range for the CMBG (Calculated Mean Blood Glucose). ??A hemoglobin A1c < 7% is the recommended target for most people with diabetes. ??The CMBG for an A1c of 7% is 154 mg/dL. The diagnostic hemoglobin A1c level for diabetes is greater than or equal to 6.5% which is a CMBG greater than or equal to 140 mg/dL. 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 Expl anatjeff Healthcare Proxy 06/28/2017 8:46 AM Advance Directive - Non Epic LMR 04/26/2009 12:00 AM Advance Directive - Non Epic LMR 01/05/2009 12:00 AM * DNR/DNI (No CPR/No Intubation) (Latest Code Status on File) Date Activated Date Inactivated Comments 06/28/2017 5:55 PM 07/04/2017 1:56 PM * Full Code (Presumed) Date Activated Date Inactivated Comments 06/28/2017 11:00 AM 06/28/2017 5:55 PM * Full Code (Presumed) Date Activated Date Inactivated Comments 01/15/2017 7:10 PM 01/24/2017 3:35 PM Healthcare Agents on File Name Relationship Healthcare Agent [facility] Communication Ayah Elizabeth Spouse .Primary Health Care Agent (Proxy form on file) Care Teams Nuclear Medicine Medical Director Relationship Specialty Start Date End Date William Mcghee DO [address] [place] [address] [address] [place] [address] PCP - General Internal Medicine 06/28/17 Additional Source Comments The information contained in this document represents components of the legal health record. It is not the complete legal health record.[facility]
--- OUTSIDE RECORDS SUMMARY | 2024-06-10 11:18 | XMS_ITS | Encounter Summary ---
Author Name [facility] Address [address] [place] [address] Care Team Providers Care Outreach Nurse Name Role Phone BONITA HELMS Primary Care Provider UnavailMOHAMUD Banuelos Unavailable Unavailable BELA RODNEY Unavailable Unavailable APPLE, LON Unavailable Unavailable DOMONIQUE, PATRICIA Unavailable Unavailable MARY [...] Mueller's Name Patient's Relationship to Policy Mueller [facility] MEDICARE SUPPLEMEN [facility] Mar 12, 2016 [id number] PRIYANK TURPIN SEPH PATIENT MEDICARE (WNR) MEDICARE (M) PART B May 10, 2004 PART B [id number] [phone] PRIYANK TURPIN SEPH PATIENT MEDICARE (WNR) MEDICARE (M) PART B May 10, 2004 PART B [id number] [phone] PRIYANK TURIPN SEPH PATIENT MEDICARE (WNR) MEDICARE (M) PART A July 10, 1997 PART A [id number] PRIYANK TURPIN PATIENT MEDICARE (WNR) MEDICARE (M) PART A July 10, 1997 PART A [id number] [facility] PRIYANK TURPIN SEPH PATIENT Selected Encounter This section includes the information on record at DC for the Encounter. Date/Time Encounter Type Encounter Description Reason Pro vider Source Jun 09, 2024 05:07 PM Outpatient Encounter [facility] Nursing (RN / LP) IHE Encounter Template Text not used by DC Plan of Treatment: Future Appointments (+ 6 months) and Future Tests (+/- 45 days) The Plan of Treatment section includes future care activities for the patient from all [place] treatmentfacilities. This section includes future appointments and future orders which are active, pending or scheduled. Future Appointments This section includes appointments that were scheduled to occur 6 months from the date of the Encounter, up to a maximum of 20 appointments. The data comes from all [facility] facilities. Appointment Date/Time Appointment Type Appointme nt Facility Name July 23, 2024 11:00 AM AMBULATORY - MEDICINE [facility] August 08, 2024 11:00 AM AMBULATORY - REHAB [facility] Sep 03, 2024 12:30 PM [facility] Active, Pending, and Scheduled Orders This section includes a listing of several types of active, pending, and scheduled orders, including clinic medications orders, diagnostic test orders, procedure orders and consult orders; where the start date of the order is 45 days before the date of the Encounter or 45 days after the date of theEncounter. The data comes from all [facility]. Test Date/Time Test Type Test Details Facility Name Jun 03, 2024 10:59 AM Consult Order COMMUNITY CARE-ENDOCRINE Cons Journalists And Other Writers's Choice [facility] Jun 09, 2024 03:06 PM Consult Order CRANIAL ELECTROTHERAPY STIMULATION/SOPC OUTPT Cons Journalists And Other Writers's Choice [facility] Jul 04, 2024 12:00 AM Laboratory - Chemistry Order AMPHETAMINES SCREEN PANEL URINE (DRUG) [facility] Jul 04, 2024 12:00 AM Laboratory - Chemistry Order ALCOHOL, ETHYL URINE PANEL URINE (DRUG) [facility] Jul 04, 2024 12:00 AM Laboratory - Chemistry Order FENTANYL SCREEN PANEL URINE (DRUG) [facility] [place] Jul 04, 2024 12:00 AM Laboratory - Chemistry Order BENZODIAZEPINES SCREEN PANEL URINE (DRUG) [facility] Jul 04, 2024 12:00 AM Laboratory - Chemistry Order BUPRENORPHINE SCREEN PANEL URINE (DRUG) [facility] Jul 04, 2024 12:00 AM Laboratory - Chemistry Order CANNABINOIDS SCREEN PANEL URINE (DRUG) [facility] Jul 04, 2024 12:00 AM Laboratory - Chemistry Order COCAINE SCREEN PANEL URINE (DRUG) [facility] [place] [facility] Jul 04, 2024 12:00 AM Laboratory - Chemistry Order OPIATES SCREEN PANEL [facility] Jul 04, 2024 12:00 AM Laboratory - Chemistry Order OXYCODONE SCREEN PANEL URINE (DRUG) [facility] Jul 04, 2024 12:00 AM Laboratory - Chemistry Order METHADONE SCREEN URINE [facility] Social History: Smoking Status (Most current) and Tobacco Use (All prior to encounter date) This section includes the most current, and the historical, smoking and tobacco- related health factors from the [place] facility where the Encounter took place. Current Smoking Status This section includes the most current smoking, or tobacco-related health factor, from the [place] facility where the Encounter took place. Date/Time Current Smoking Status Comment Kathy arguelloy Mar 24, 2022 10:01 AM VA-TOBACCO NEVER USED [facility] Advance Directives: All historical and current Section Date Range: From patient's date of to the date document was created. This section includes ALL of a patient's completed or amended [place] Advance and Rescinded Directives. The entries below indicate that a directive exists for the patient, but an actual copy is not included with this document. The data comes from all [place] facilities. Date Advance Directives Provider Source Jun 28, 2009 ADVANCE DIRECTIVE MANUELITO MORELOS
--- OUTSIDE RECORDS SUMMARY | 2024-06-10 11:18 | XMS_ITS ---
Author Name [facility] [place] [facility] [place] Address [address] [place] [address] Care Team Providers Care Making Department Preparer Name Role Phone BONITA HELMS Primary Care Provider UnavailMOHAMUD Banuelos Unavailable Unavailable BELA RODNEY Unavailable Unavailable APPLE, LON Unavailable Unavailable PATRICIA YOUSSEF Unavailable Unavailable MARY [...] Mueller's Name Patient's Relationship to Policy Mueller [facility] MEDICARE SUPPLEMEN MEGHANA MEDEX ANDRY E Mar 12, 2016 [id number] PRIYANK TURPIN SEPH PATIENT MEDICARE (WNR) MEDICARE (M) PART B May 10, 2004 PART B [id number] [phone] PRIYANK TURPIN SEPH PATIENT MEDICARE (WNR) MEDICARE (M) PART B May 10, 2004 PART B [id number] [phone] PRIYANK TURPIN SEPH PATIENT MEDICARE (WNR) MEDICARE (M) PART A July 10, 1997 PART A [id number] PAPIPRIYANK HARJINDER PATIENT MEDICARE (WNR) MEDICARE (M) PART A July 10, 1997 PART A [id number] [facility] PRIYANK TURPIN PATIENT Selected Encounter This section includes the information on record at [place] for the Encounter. Date/Time Encounter Type Encounter Description Reason Provider Source Oct 08, 2023 12:00 PM Outpatient Encounter [facility] PHYSIC EXTND(AIRCRAFT WORKER,[place]) ICD-10-CM C67.9 Malignant neoplasm of bladder, unspecified BONITA HELMS Luiza Encounter Template Text not used by [place] Assessments - Encounter Diagnoses This section includes the primary and secondary diagnoses documented for the Encounter. Date/Time Primary/Secondary Diagnosis Diagnosis Name Provider Source Nov 14, 2023 11:42 AM PRIMARY Malignant neoplasm of bladder, unspecified BONITA HELMS [facility] [place] [facility] Nov 14, 2023 11:42 AM SECONDARY Acquired total absence of pancreas BONITA HELMS [facility] [place] [facility] Nov 14, 2023 11:42 AM SECONDARY Athscl heart disease of [place] coronary artery w/o ang pctrs BONITA HELMS [facility] [place] [facility] Nov 14, 2023 11:42 AM SECONDARY Complete rotatr-cuff tear/ruptr of unsp shoulder, not trauma BONITA HELMS [facility] [place] [facility] Nov 14, 2023 11:42 AM SECONDARY Hypertensive heart disease without heart failure BONITA HELMS [facility] [place] [facility] Nov 14, 2023 11:42 AM SECONDARY Nexdtve age-related mclr degn, bilateral, stage unspecified BONITA HELMS [facility] [place] [facility] Nov 14, 2023 11:42 AM SECONDARY Radiculopathy, cervical region BONITA HELMS [facility] [place] [facility] Nov 14, 2023 11:42 AM SECONDARY Type 1 diabetes mellitus with hyperglycemia BONITA HELMS [facility] [place] [facility] Nov 14, 2023 11:42 AM SECONDARY Unilateral primary osteoarthritis, left knee BONITA HELMS [facility] [place] [facility] Nov 14, 2023 11:42 AM SECONDARY Unspecified hearing loss, bilateral BONITA HELMS [facility] [place] [facility] Plan of Treatment: Future Appointments (+ 6 months) and Future Tests (+/- 45 days) The Plan of Treatment section includes future care activities for the patient from all [facility] This section includes future appointments and future orders which are active, pending or scheduled. Future Appointments This section includes appointments that were scheduled to occur 6 months from the date of the Encounter, up to a maximum of 20 appointments. The data comes from all [place] treatment facilities. Appointment Date/Time Appointment Type Appointme nt Facility Name Oct 16, 2023 10:00 AM AMBULATORY - MEDICINE [facility] Nov 27, 2023 11:00 AM AMBULATORY - REHAB MEDICIN E [facility] [place] [facility] Nov 28, 2023 10:30 AM AMBULATORY - MEDICINE [facility] [place] [facility] Nov 28, 2023 11:30 AM AMBULATORY - MEDICINE [facility] [place] [facility] Nov 28, 2023 11:45 AM AMBULATORY - MEDICINE [facility] [place] [facility] Jan 09, 2024 02:00 PM AMBULATORY - REHAB MEDICIN E [facility] [place] [facility] Feb 29, 2024 11:00 AM AMBULATORY - RE[facility]AB MEDICIN [facility] Mar 17, 2024 11:00 AM AMBULATORY - REHAB MEDICIN E [facility] [place] [facility] Vital Signs: All taken on the encounter date This section contains inpatient and outpatient Vital Signs collected on the date of the Encounter. Date/Time Temperature Pulse Blood Pressure Respiratory Rate SP02 Pain Height Weight Body Mass Index Source Oct 08, 2023 12:00 PM 98.2 46 138/60 18 99 5 [facility] [place] [facility] Social History: Smoking Status (Most current) and Tobacco Use (All prior to encounter date) This section includes the most current, and the historical, smoking and tobacco- related health factors from the [place] facility where the Encounter took place. Current Smoking Status This section includes the most current smoking, or tobacco-related health factor, from the [place] facility where the Encounter took place. Date/Time Current Smoking Status Comment Kathy unger Mar 24, 2022 10:01 AM CO-TOBACCO NEVER USED [facility] [place] [facility] Advance Directives: All historical and current Section Date Range: From patient's date of to the date document was created. This section includes ALL of a patient's completed or amended VA Advance and Rescinded Directives. The entries below indicate that a directive exists for the patient, but an actual copy is not included with this document. The data comes from all [place] facilities. Date Advance Directives Provider Source Jun 28, 2009 ADVANCE DIRECTIVE MANUELITO MORELOS Encounter Notes: All associated encounter notes This section contains the clinical notes associated to the Encounter. Date/Time Encounter Note(s) Provider Source Oct 08, 2023 08:07 PM ADDENDUM: LOCAL TITLE: Addendum STANDARD TITLE: ADDENDUM DATE OF NOTE: OCT 08, 2023@20:07:45 ENTRY DATE: OCT 08, 2023@20:07:46 AUTHOR: PATRICIA YOUSSEF EXP COSIGNER: URGENCY: STATUS: COMPLETED [place] is now admitted to [facility]-PACT. All future clinic primary care appointments/recalls may be cancelled as all primary care will now be delivered by the [facility] team. /devon/ PATRICIA YOUSSEF HB REFINERY OPERATOR [facility] Signed: 10/08/2023 20:08 Receipt Acknowledged By: 10/09/2023 08:39 /es/ Frederick Uribe RN Registered Nurse (RN) 10/09/2023 08:18 /es/ YENI PUENTES PA-C STAFF PHYSICIAN HYDRAULIC PRESS SERVICER 10/09/2023 08:32 /es/ ESSENCE ROUSSEAU Advanced Mill Operator --- Original Document --- 10/08/23 HB PROVIDER ASSESSMENT: was seen for: [ ] Initial Review [ ] Annual Review [ ] Interim Visit Identified by name, , address and facial recognition: Y VVC Ready: Yes [ ] No [ ] HPI:83 yo M seen for admit to [facility]. His , Ayah, was also present. 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 HISTORY: PERIOD OF SERVICE - [employer] FROM Oct TO May COMBAT SERVICE INDICATED: No SH: SERVICE CONNECTED % - 50 IMPAIRED HEARING 40% SC TINNITUS 10% SC MARITAL STATUS - [facility] Providers Audiology Non- VA Providers Community PCP- Dr. Mcghee/AIRCRAFT WORKER Dr. Davies- Endocrine (last seen 09/05/23) Dr. Damon- [facility]iology Hospitalizations/Surgery CABGx3 left carpal tunnel release 2018 bilat inguinal hernia repair, 2013 pancreatic debrivement, biliary bypass right carpal tunnel release bilat rotator cuff repairs Lumbar spine procedire X3, 1973, 1979, 1993 Social quit smoking 30 years ago social drinker, 1 beer weekly retired [employer] Family History Mom very young from CVA Father at 60 due to heart disease Brother with epilepsy HM: ( )copy of HCP given ( )Has UTD HCP ( )copy of MOLST given( )Has UTD MOLST ( )advance directive UTD Goals of Care- Full Code per lengthy discussion Recent Falls Y(x ) N( ) Last week, Recent Infections Y( ) N(x ) Recent Hospitalizations Y ( ) N(x ) ADLS: Needs assistance with- NONE ( )ambulation ( ) dressing ( )toileting ( )transferring ( ) bathing ( ) feeding ( ) transfer ( ) incontinence care Oxygen Safety addressed: no Cognition: No concerns. Counseled on importance of physical activity, healthy diet, socialization and mentally engaging activities to optimize cognitive functioning. Allergies: CONTRAST MEDIA, OTHER, RADIOLOGICAL/CONTRAST MEDIA GUAFENESIN DEXTROMETHORPHAN SYRUP The following VA and Non-VA meds were reconciled with patient: Active and Recently Outpatient Medications (excluding Supplies): Active Outpatient Medications Status 1) ACCU-CHEK GUIDE [...] NA 0.5% OPH SOLN INSTILL 1 ACTIVE (S) DROP INTO EACH EYE FOUR TIMES DAILY NEEDED FOR DRY EYE 6) CREON 24,000UNIT EC CAP TAKE 3 CAPSULES BY MOUTH ACTIVE THREE TIMES A DAY 7) HYDROCODONE 5MG/ACETAMINOPHEN 325MG TAB TAKE 1 TABLET ACTIVE BY MOUTH THREE TIMES DAILY NEEDED FOR PAIN NEXT FILL 10/22/23 8) INSULIN,ASPART,HUMAN 100 UNIT/ML INJ INJECT INSULIN ACTIVE SUBCUTANEOUSLY THREE TIMES DAILY NEEDED ACCORDING TO SLIDING SCALE 9) METOPROLOL TARTRATE 25MG TAB TAKE ONE TABLET BY MOUTH ACTIVE TWICE DAILY FOR BLOOD PRESSURE/HEART 10) MULTIVIT/OPHTH AREDS2/LUTE/ZEAX CAP/TAB TAKE 1 ACTIVE CAPSULE BY MOUTH TWICE DAILY IN THE MORNING AND EVENING, WITH FOOD 11) SERTRALINE HCL 100MG TAB TAKE ONE TABLET BY MOUTH ACTIVE TWICE DAILY 12) ZOLPIDEM TARTRATE 10MG TAB TAKE ONE TABLET BY MOUTH ACTIVE BEDTIME NEEDED FOR SLEEP Inactive Outpatient Medications Status 1) HYDROCODONE 5MG/ACETAMINOPHEN 325MG TAB TAKE 1 TABLET BY MOUTH THREE TIMES DAILY NEEDED FOR PAIN NEXT FILL 09/24/23 Active Non-VA Medications Status 1) Non-VA OTHER CAP/TAB FISH OIL, 1000MG EVERY DAY ACTIVE 14 Total Medications Active problems - Computerized Problem List is the source for the followin. Bladder cancer 2. Full thickness rotator cuff tear 3. Cervical radiculopathy 4. Coronary artery disease 5. Localized, primary osteoarthritis 6. Trigger finger 7. autophony 8. 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 Disorders of bursae and tendons in shoulder region 10. Retinal defect 11. Refractive error 12. Cataract, Cortical (Senile) 13. Generalized anxiety disorder 14. Pancreatitis (SNOMED CT 26237164) 15. ENDOSCOPY 16. Hematuria 17. Foot drop 18. Trochanteric Bursitis 19. Screening for Malignant Neoplasms of colon 20. SENSORNEUR HEAR LOSS NOS 21. Gastroesophageal Reflux Disorder 22. Hypertension (SNOMED CT 16649672) 23. Depressive Disorder NOS 24. Diabetes mellitus (SNOMED CT 72789472) 25. HYPERLIPIDEMIA NEC/NOS Review of Systems: CONSTITUTIONAL: +wt loss, no fever, no loss of appetite HEENT: hearing impaired ( )Tinnitus No vision change, no blurring of vision no difficulty swallowing CARDIOVASCULAR: No cough, SOB, no chest pain, no palpitations, GUIDO GASTROINTESTINAL: No abdominal pain, no nausea, no vomiting, bowels ok GENITOURINARY: +urine frequency DERMATOLOGICAL: No new or changing skin lesions, no rash MUSCULOSKELETAL: chronic joint pain, mostly back and bilat shoulders. Limited mobility of left leg sure to medulary christofer. ENDOCRINE: no fatigue PSYCHIATRIC: using ambien for sleep, +depression, recent loss of son NEUROLOGIC: No headache, no numbness, no tingling, no weakness, suspect some mild cognitive impairment, no dizziness VITAL SIGNS: B/P: 138/60 (10/08/2023 12:00) Pulse: 46 (10/08/2023 12:00) Temperature: 98.2 F [36.8 C] (10/08/2023 12:00) Weight: 159.2 lb [72.21 kg] (06/11/2023 10:32) Height: 67 in [170.2 cm] (11/06/2022 14:48) BMI: BMI: 25.0 Pain: 5 (10/08/2023 12:00) (0-10 scale) Pulse Ox:Measurement DT POx (L/MIN)(%) 10/08/2023 12:00 99 150lbs PE: GENERAL: Pt is appropriately dressed/groomed, good eye contact. NAD HEENT: normalcephalic, thyroid nonpalpable. conj clear, Oropharynx clear, tongue moist, teeth intact neck supple, no JVD, no carotid bruits SKIN: warm & dry, no rash CV: bradycardia, regular rhythm. absent s2 LUNGS: Clear to auscultation bilaterally, no use of accessory muscles ABD: obese, NBS, soft, NT, ND, 4 visable hernias EXTREMITIES: warm, no edema, +PP, left leg permanently in extension due to christofer. NEURO/PSYCH: A+Ox4, good historian, mood/affect appropriate, thought/speech patterns appropriately conversant without delusional content, CNII-XII grossly intact, /3 word recall Get up and go normal ( )with ( )without assistive device. 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 cont with outside Endocrine but can we get him CGM HTN, CAD, s/p CABG x3 > no CP > on ASA/statin > Bradycardia- Reduce Metoprolol tartrate to 12.5mg PO BID > EKG ordered to be done at [facility], October 16, 2023 Chronic pain, cervical radiculopathy, left knee medulary christofer >Immobility of left knee due to medularry christofer, h/o hardware infection > q 3 mos steroid injection > hydrocodone/acetaminophen TID- poor pain control > Once Cardiac status stabilized will consider long acting opiate such as buprenorphine. bladder Cancer >stable, surveillence with q 6mo cystoscopy BPH with LUTS > was not taking Tamsulosin that was prescribed, advised to restart, ordered from [place] GERD > denies symptoms Depression, bereavement > taking Sertraline 200mg daily. Not interest in therapy Macular degeneration > cont AREDs, drops PRN Time spent including chart review, face to face visit, shared decision making and documentation on the day of service; 60 min F/U months, sooner PRN. Labs to include: ( )non fasting labs ordered prior to f/u ( )fasting labs ordered prior to f/u (x )no labs needed has complex care needs and will benefit from ongoing interdisciplinary [facility] management. Treatment plan included shared decision making and is confirmed with the /caregiver. All questions answered, education provided regarding medication, including details regarding any changes. All questions answered. /devon/ BONITA HELMS [facility] NURSE PRACTITIONER Signed: 10/08/2023 15:16 10/08/2023 ADDENDUM STATUS: COMPLETED Admit to [facility] and add to IDT discussion. No labs needed. Peg- can you send a request for records to Cardiology (fax [phone]) and Dr. Davies ([phone])? Thanks. /hilton HELMS HB NURSE PRACTITIONER Signed: 10/08/2023 15:22 Receipt Acknowledged By: 10/08/2023 20:17 /hilton YOUSSEF [facility] REFINERY OPERATOR [facility]ERY [facility] * AWAITING SIGNATURE * DALTON TRINIDAD PEGGY M [facility] Oct 08, 2023 03:16 PM ADDENDUM: LOCAL TITLE: Addendum STANDARD TITLE: ADDENDUM DATE OF NOTE: OCT 08, 2023@15:16:23 ENTRY DATE: OCT 08, 2023@15:16:23 AUTHOR: BONITA HELMS COSIGNER: URGENCY: STATUS: COMPLETED Admit to [facility] and add to IDT discussion. No labs needed. Peg- can you send a request for records to Cardiology (fax [phone]) and Dr. Davies ([phone])? Thanks. /es/ BONITA HELMS [facility] NURSE PRACTITIONER Signed: 10/08/2023 15:22 Receipt Acknowledged By: 10/08/2023 20:17 /es/ PATRICIA YOUSSEF [facility] REFINERY OPERATOR [facility]ERY UNIT 10/09/2023 22:00 /es/ Dolores Mancilla TOWER CONTROL OPERATOR [facility] FIREARMS MODEL MAKER for DALTON TRINIDAD --- Original Document --- 10/08/23 [facility] PROVIDER ASSESSMENT: was seen for: [ ] Initial Review [ ] Annual Review [ ] Interim Visit Identified by name, , address and facial recognition: Y VVC Ready: Yes [ ] No [ ] HPI:83 yo M seen for admit to [facility]. His , Ayah, was also present. 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 HISTORY: PERIOD OF SERVICE - [place] [employer] FROM Oct TO May COMBAT SERVICE INDICATED: No SH: SERVICE CONNECTED % - 50 IMPAIRED HEARING 40% SC TINNITUS 10% SC MARITAL STATUS - [facility] Providers Audiology Non- [facility] Providers Community PCP- Dr. Mcghee/AIRCRAFT WORKER Dr. Davies- Endocrine (last seen 09/05/23) Dr. Damon- [facility] Cardiology Hospitalizations/Surgery CABGx3 left carpal tunnel release 2019 bilat inguinal hernia repair, 2013 pancreatic debrivement, biliary bypass right carpal tunnel release bilat rotator cuff repairs Lumbar spine procedire X3, 1973, 1979, 1993 Social quit smoking 30 years ago social drinker, 1 beer weekly retired [employer] Family History Mom very young from CVA Father at 60 due to heart disease Brother with epilepsy HM: ( )copy of HCP given ( )Has UTD HCP ( )copy of MOLST given( )Has UTD MOLST ( )advance directive UTD Goals of Care- Full Code per lengthy discussion Recent Falls Y(x ) N( ) Last week, Recent Infections Y( ) N(x ) Recent Hospitalizations Y ( ) N(x ) ADLS: Needs assistance with- NONE ( )ambulation ( ) dressing ( )toileting ( )transferring ( ) bathing ( ) feeding ( ) transfer ( ) incontinence care Oxygen Safety addressed: no Cognition: No concerns. Counseled on importance of physical activity, healthy diet, socialization and mentally engaging activities to optimize cognitive functioning. Allergies: CONTRAST MEDIA, OTHER, RADIOLOGICAL/CONTRAST MEDIA GUAFENESIN DEXTROMETHORPHAN SYRUP The following VA and Non-VA meds were reconciled with patient: Active and Recently Outpatient Medications (excluding Supplies): Active Outpatient Medications Status 1) ACCU-CHEK GUIDE [...] NA 0.5% OPH SOLN INSTILL 1 ACTIVE (S) DROP INTO EACH EYE FOUR TIMES DAILY NEEDED FOR DRY EYE 6) CREON 24,000UNIT EC CAP TAKE 3 CAPSULES BY MOUTH ACTIVE THREE TIMES A DAY 7) HYDROCODONE 5MG/ACETAMINOPHEN 325MG TAB TAKE 1 TABLET ACTIVE BY MOUTH THREE TIMES DAILY NEEDED FOR PAIN NEXT FILL 10/22/23 8) INSULIN,ASPART,HUMAN 100 UNIT/ML INJ INJECT INSULIN ACTIVE SUBCUTANEOUSLY THREE TIMES DAILY NEEDED ACCORDING TO SLIDING SCALE 9) METOPROLOL TARTRATE 25MG TAB TAKE ONE TABLET BY MOUTH ACTIVE TWICE DAILY FOR BLOOD PRESSURE/HEART 10) MULTIVIT/OPHTH AREDS2/LUTE/ZEAX CAP/TAB TAKE 1 ACTIVE CAPSULE BY MOUTH TWICE DAILY IN THE MORNING AND EVENING, WITH FOOD 11) SERTRALINE HCL 100MG TAB TAKE ONE TABLET BY MOUTH ACTIVE TWICE DAILY 12) ZOLPIDEM TARTRATE 10MG TAB TAKE ONE TABLET BY MOUTH ACTIVE BEDTIME NEEDED FOR SLEEP Inactive Outpatient Medications Status 1) HYDROCODONE 5MG/ACETAMINOPHEN 325MG TAB TAKE 1 TABLET BY MOUTH THREE TIMES DAILY NEEDED FOR PAIN NEXT FILL 09/24/23 Active Non-VA Medications Status 1) Non-VA OTHER CAP/TAB FISH OIL, 1000MG EVERY DAY ACTIVE 14 Total Medications Active problems - Computerized Problem List is the source for the followin. Bladder cancer 2. Full thickness rotator cuff tear 3. Cervical radiculopathy 4. Coronary artery disease 5. Localized, primary osteoarthritis 6. Trigger finger 7. autophony 8. 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 Disorders of bursae and tendons in shoulder region 10. Retinal defect 11. Refractive error 12. Cataract, Cortical (Senile) 13. Generalized anxiety disorder 14. Pancreatitis (SNOMED CT [id number]) 15. ENDOSCOPY 16. Hematuria 17. Foot drop 18. Trochanteric Bursitis 19. Screening for Malignant Neoplasms of colon 20. SENSORNEUR HEAR LOSS NOS 21. Gastroesophageal Reflux Disorder 22. Hypertension (SNOMED CT 70993978) 23. Depressive Disorder NOS 24. Diabetes mellitus (SNOMED CT 13668918) 25. HYPERLIPIDEMIA NEC/NOS Review of Systems: CONSTITUTIONAL: +wt loss, no fever, no loss of appetite HEENT: hearing impaired ( )Tinnitus No vision change, no blurring of vision no difficulty swallowing CARDIOVASCULAR: No cough, SOB, no chest pain, no palpitations, GUIDO GASTROINTESTINAL: No abdominal pain, no nausea, no vomiting, bowels ok GENITOURINARY: +urine frequency DERMATOLOGICAL: No new or changing skin lesions, no rash MUSCULOSKELETAL: chronic joint pain, mostly back and bilat shoulders. Limited mobility of left leg sure to medulary christofer. ENDOCRINE: no fatigue PSYCHIATRIC: using ambien for sleep, +depression, recent loss of son NEUROLOGIC: No headache, no numbness, no tingling, no weakness, suspect some mild cognitive impairment, no dizziness VITAL SIGNS: B/P: 138/60 (10/08/2023 12:00) Pulse: 46 (10/08/2023 12:00) Temperature: 98.2 F [36.8 C] (10/08/2023 12:00) Weight: 159.2 lb [72.21 kg] (06/11/2023 10:32) Height: 67 in [170.2 cm] (11/06/2022 14:48) BMI: BMI: 25.0 Pain: 5 (10/08/2023 12:00) (0-10 scale) Pulse Ox:Measurement DT POx (L/MIN)(%) 10/08/2023 12:00 99 150lbs PE: GENERAL: Pt is appropriately dressed/groomed, good eye contact. NAD HEENT: normalcephalic, thyroid nonpalpable. conj clear, Oropharynx clear, tongue moist, teeth intact neck supple, no JVD, no carotid bruits SKIN: warm & dry, no rash CV: bradycardia, regular rhythm. absent s2 LUNGS: Clear to auscultation bilaterally, no use of accessory muscles ABD: obese, NBS, soft, NT, ND, 4 visable hernias EXTREMITIES: warm, no edema, +PP, left leg permanently in extension due to christofer. NEURO/PSYCH: A+Ox4, good historian, mood/affect appropriate, thought/speech patterns appropriately conversant without delusional content, CNII-XII grossly intact, /3 word recall Get up and go normal ( )with ( )without assistive device. 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 cont with outside Endocrine but can we get him CGM HTN, CAD, s/p CABG x3 > no CP > on ASA/statin > Bradycardia- Reduce Metoprolol tartrate to 12.5mg PO BID > EKG ordered to be done at [facility], October 16, 2023 Chronic pain, cervical radiculopathy, left knee medulary christofer >Immobility of left knee due to medularry christofer, h/o hardware infection > q 3 mos steroid injection > hydrocodone/acetaminophen TID- poor pain control > Once Cardiac status stabilized will consider long acting opiate such as buprenorphine. bladder Cancer >stable, surveillence with q 6mo cystoscopy BPH with LUTS > was not taking Tamsulosin that was prescribed, advised to restart, [facility] from [facility] > denies symptoms Depression, bereavement > taking Sertraline 200mg daily. Not interest in therapy Macular degeneration > cont AREDs, drops PRN Time spent including chart review, face to face visit, shared decision making and documentation on the day of service; 60 min F/U months, sooner PRN. Labs to include: ( )non fasting labs ordered prior to f/u ( )fasting labs ordered prior to f/u (x )no labs needed has complex care needs and will benefit from ongoing interdisciplinary [facility] management. Treatment plan included shared decision making and is confirmed with the /caregiver. All questions answered, education provided regarding medication, including details regarding any changes. All questions answered. /devon/ BONITA HELMS [facility] NURSE PRACTITIONER Signed: 10/08/2023 15:16 10/08/2023 ADDENDUM STATUS: COMPLETED [place] is now admitted to [facility]-PACT. All future clinic primary care appointments/recalls may be cancelled as all primary care will now be delivered by the [facility] team. /es/ PATRICIA YOUSSEF HB REFINERY OPERATOR VAPOR RECOVERY UNIT Signed: 10/08/2023 20:08 Receipt Acknowledged By: 10/09/2023 08:39 /es/ Frederick Uribe RN Registered Nurse (RN) 10/09/2023 08:18 /es/ YENI PUENTES PA-C STAFF PHYSICIAN HYDRAULIC PRESS SERVICER 10/09/2023 08:32 /devon/ ESSENCE ROUSSEAU Advanced Mill Operator BONITA HELMS [facility] [place] [facility] Oct 08, 2023 12:00 PM [facility] ATTENDING NOTE: LOCAL TITLE: [facility] PROVIDER ASSESSMENT STANDARD TITLE: [facility] ATTENDING NOTE DATE OF NOTE: OCT 08, 2023@12:00 ENTRY DATE: OCT 08, 2023@12:00:33 AUTHOR: BONITA HELMS COSIGNER: URGENCY: STATUS: COMPLETED [facility] PROVIDER ASSESSMENT Has ADDENDA [place] was seen for: [ ] Initial Review [ ] Annual Review [ ] Interim Visit Identified by name, , address and facial recognition: Y VVC Ready: Yes [ ] No [ ] HPI:83 yo M seen for admit to [facility]. His , Ayah, was also present. 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 HISTORY: PERIOD OF SERVICE - [employer] FROM Oct TO May COMBAT SERVICE INDICATED: No SH: SERVICE CONNECTED % - 50 IMPAIRED HEARING 40% SC TINNITUS 10% SC MARITAL STATUS - [facility] Providers Audiology Non- VA Providers Community PCP- Dr. Mcghee/AIRCRAFT WORKER Dr. Davies- Endocrine (last seen 09/05/23) Dr. Damon- [facility] Hospitalizations/Surgery CABGx3 left carpal tunnel release 2019 bilat inguinal hernia repair, 2013 pancreatic debrivement, biliary bypass right carpal tunnel release bilat rotator cuff repairs Lumbar spine procedire X3, 1973, 1979, 1993 Social quit smoking 30 years ago social drinker, 1 beer weekly retired [employer] Family History Mom very young from CVA Father at 60 due to heart disease Brother with epilepsy HM: ( )copy of HCP given ( )Has UTD HCP ( )copy of MOLST given( )Has UTD MOLST ( )advance directive UTD Goals of Care- Full Code per lengthy discussion Recent Falls Y(x ) N( ) Last week, Recent Infections Y( ) N(x ) Recent Hospitalizations Y ( ) N(x ) ADLS: Needs assistance with- NONE ( )ambulation ( ) dressing ( )toileting ( )transferring ( ) bathing ( ) feeding ( ) transfer ( ) incontinence care Oxygen Safety addressed: no Cognition: No concerns. Counseled on importance of physical activity, healthy diet, socialization and mentally engaging activities to optimize cognitive functioning. Allergies: CONTRAST MEDIA, OTHER, RADIOLOGICAL/CONTRAST MEDIA GUAFENESIN DEXTROMETHORPHAN SYRUP The following VA and Non-VA meds were reconciled with patient: Active and Recently Outpatient Medications (excluding Supplies): Active Outpatient Medications Status 1) ACCU-CHEK GUIDE [...] NA 0.5% OPH SOLN INSTILL 1 ACTIVE (S) DROP INTO EACH EYE FOUR TIMES DAILY NEEDED FOR DRY EYE 6) CREON 24,000UNIT EC CAP TAKE 3 CAPSULES BY MOUTH ACTIVE THREE TIMES A DAY 7) HYDROCODONE 5MG/ACETAMINOPHEN 325MG TAB TAKE 1 TABLET ACTIVE BY MOUTH THREE TIMES DAILY NEEDED FOR PAIN NEXT FILL 10/22/23 8) INSULIN,ASPART,HUMAN 100 UNIT/ML INJ INJECT INSULIN ACTIVE SUBCUTANEOUSLY THREE TIMES DAILY NEEDED ACCORDING TO SLIDING SCALE 9) METOPROLOL TARTRATE 25MG TAB TAKE ONE TABLET BY MOUTH ACTIVE TWICE DAILY FOR BLOOD PRESSURE/HEART 10) MULTIVIT/OPHTH AREDS2/LUTE/ZEAX CAP/TAB TAKE 1 ACTIVE CAPSULE BY MOUTH TWICE DAILY IN THE MORNING AND EVENING, WITH FOOD 11) SERTRALINE HCL 100MG TAB TAKE ONE TABLET BY MOUTH ACTIVE TWICE DAILY 12) ZOLPIDEM TARTRATE 10MG TAB TAKE ONE TABLET BY MOUTH ACTIVE BEDTIME NEEDED FOR SLEEP Inactive Outpatient Medications Status 1) HYDROCODONE 5MG/ACETAMINOPHEN 325MG TAB TAKE 1 TABLET BY MOUTH THREE TIMES DAILY NEEDED FOR PAIN NEXT FILL 09/24/23 Active Non-VA Medications Status 1) Non-VA OTHER CAP/TAB FISH OIL, 1000MG EVERY DAY ACTIVE 14 Total Medications Active problems - Computerized Problem List is the source for the followin. Bladder cancer 2. Full thickness rotator cuff tear 3. Cervical radiculopathy 4. Coronary artery disease 5. Localized, primary osteoarthritis 6. Trigger finger 7. autophony 8. 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 Disorders of bursae and tendons in shoulder region 10. Retinal defect 11. Refractive error 12. Cataract, Cortical (Senile) 13. Generalized anxiety disorder 14. Pancreatitis (SNOMED CT 80306925) 15. ENDOSCOPY 16. Hematuria 17. Foot drop 18. Trochanteric Bursitis 19. Screening for Malignant Neoplasms of colon 20. SENSORNEUR HEAR LOSS NOS 21. Gastroesophageal Reflux Disorder 22. Hypertension (SNOMED CT 74335271) 23. Depressive Disorder NOS 24. Diabetes mellitus (SNOMED CT 99581405) 25. HYPERLIPIDEMIA NEC/NOS Review of Systems: CONSTITUTIONAL: +wt loss, no fever, no loss of appetite HEENT: hearing impaired ( )Tinnitus No vision change, no blurring of vision no difficulty swallowing CARDIOVASCULAR: No cough, SOB, no chest pain, no palpitations, GUIDO GASTROINTESTINAL: No abdominal pain, no nausea, no vomiting, bowels ok GENITOURINARY: +urine frequency DERMATOLOGICAL: No new or changing skin lesions, no rash MUSCULOSKELETAL: chronic joint pain, mostly back and bilat shoulders. Limited mobility of left leg sure to medulary christofer. ENDOCRINE: no fatigue PSYCHIATRIC: using ambien for sleep, +depression, recent loss of son NEUROLOGIC: No headache, no numbness, no tingling, no weakness, suspect some mild cognitive impairment, no dizziness VITAL SIGNS: B/P: 138/60 (10/08/2023 12:00) Pulse: 46 (10/08/2023 12:00) Temperature: 98.2 F [36.8 C] (10/08/2023 12:00) Weight: 159.2 lb [72.21 kg] (06/11/2023 10:32) Height: 67 in [170.2 cm] (11/06/2022 14:48) BMI: BMI: 25.0 Pain: 5 (10/08/2023 12:00) (0-10 scale) Pulse Ox:Measurement DT POx (L/MIN)(%) 10/08/2023 12:00 99 150lbs PE: GENERAL: Pt is appropriately dressed/groomed, good eye contact. NAD HEENT: normalcephalic, thyroid nonpalpable. conj clear, Oropharynx clear, tongue moist, teeth intact neck supple, no JVD, no carotid bruits SKIN: warm & dry, no rash CV: bradycardia, regular rhythm. absent s2 LUNGS: Clear to auscultation bilaterally, no use of accessory muscles ABD: obese, NBS, soft, NT, ND, 4 visable hernias EXTREMITIES: warm, no edema, +PP, left leg permanently in extension due to christofer. NEURO/PSYCH: A+Ox4, good historian, mood/affect appropriate, thought/speech patterns appropriately conversant without delusional content, CNII-XII grossly intact, /3 word recall Get up and go normal ( )with ( )without assistive device. 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 cont with outside Endocrine but can we get him CGM HTN, CAD, s/p CABG x3 > no CP > on ASA/statin > Bradycardia- Reduce Metoprolol tartrate to 12.5mg PO BID > EKG ordered to be done at [facility], October 16, 2023 Chronic pain, cervical radiculopathy, left knee medulary christofer >Immobility of left knee due to medularry christofer, h/o hardware infection > q 3 mos steroid injection > hydrocodone/acetaminophen TID- poor pain control > Once Cardiac status stabilized will consider long acting opiate such as buprenorphine. bladder Cancer >stable, surveillence with q 6mo cystoscopy BPH with LUTS > was not taking Tamsulosin that was prescribed, advised to restart, [facility] from [facility] > denies symptoms Depression, bereavement > taking Sertraline 200mg daily. Not interest in therapy Macular degeneration > cont AREDs, drops PRN Time spent including chart review, face to face visit, shared decision making and documentation on the day of service; 60 min F/U months, sooner PRN. Labs to include: ( )non fasting labs ordered prior to f/u ( )fasting labs ordered prior to f/u (x )no labs needed has complex care needs and will benefit from ongoing interdisciplinary [facility] management. Treatment plan included shared decision making and is confirmed with the /caregiver. All questions answered, education provided regarding medication, including details regarding any changes. All questions answered. /devon/ BONITA HELMS [facility] NURSE PRACTITIONER Signed: 10/08/2023 15:16 10/08/2023 ADDENDUM STATUS: COMPLETED Admit to [facility] and add to IDT discussion. No labs needed. Peg- can you send a request for records to Cardiology (fax [phone]) and Dr. Davies ([phone])? Thanks. /es/ BONITA HELMS [facility] NURSE PRACTITIONER Signed: 10/08/2023 15:22 Receipt Acknowledged By: * AWAITING SIGNATURE * PATRICIA YOUSSEF * AWAITING SIGNATURE * DALTON TRINIDAD 10/08/2023 ADDENDUM STATUS: COMPLETED is now admitted to [facility]-PACT. All future clinic primary care appointments/recalls may be cancelled as all primary care will now be delivered by the [facility] team. /devon/ PATRICIA YOUSSEF [facility] REFINERY OPERATOR [employer] [facility] Signed: 10/08/2023 20:08 Receipt Acknowledged By: * AWAITING SIGNATURE * FREDERICK URIBE * AWAITING SIGNATURE * YENI PUENTES * AWAITING SIGNATURE * ESSENCE ROUSSEAU,[facility]ITA [facility]
--- OUTSIDE RECORDS SUMMARY | 2024-06-10 11:18 | XMS_ITS | Encounter Summary ---
Author Name [facility] [place] [facility] [place] Address [address] [place] [address] Care Team Providers Care Spa Experience Coordinator Name Role Phone BONITA HELMS Primary Care [...] Mueller's Name Patient's Relationship to Policy Mueller [facility] MEDICARE SUPPLEMEN MEGHANA MEDEX ANDRY E Mar 12, 2016 [id number] PRIYANK TURPIN SEPH PATIENT MEDICARE (WNR) MEDICARE (M) PART B May 10, 2004 PART B [id number] [phone] PRIYANK TURPIN SEPH PATIENT MEDICARE (WNR) MEDICARE (M) PART B May 10, 2004 PART B [id number] [phone] PRIYANK TURPIN SEPH PATIENT MEDICARE (WNR) MEDICARE (M) PART A July 10, 1997 PART A [id number] PRIYANK TURPIN PATIENT MEDICARE (WNR) MEDICARE (M) PART A July 10, 1997 PART A [id number] PRIYANK TURPIN PATIENT Selected Encounter This section includes the information on record at [place] for the Encounter. 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 This section includes future appointments and future orders which are active, pending or scheduled. Future Appointments This section includes appointments that were scheduled to occur 6 months from the date of the Encounter, up to a maximum of 20 appointments. The data comes from all [place] treatment facilities. Appointment Date/Time Appointment Type Appointme nt Facility Name Jan 09, 2024 02:00 PM AMBULATORY - [place] [facility] [place] [facility] Feb 29, 2024 11:00 AM AMBULATORY - REHAB MEDICIN E [place] Mar 17, 2024 11:00 AM AMBULATORY - [place] MEDIC[place] E [place] [facility] [place] [facility] Apr 11, 2024 01:00 PM AMBULATORY - REHAB MEDICIN E [place] May 06, 2024 10:30 AM AMBULATORY - REHAB MEDICIN E [place] [facility] [place] [facility] May 22, 2024 11:30 AM [facility] [place] [facility] Social History: Smoking Status (Most current) [...] place. Date/Time Current Smoking Status Comment Facil [facility] Mar 24, 2022 10:01 AM VA-TOBACCO NEVER USED [facility] Advance Directives: All historical and current Section Date Range: From patient's date of to the date document was created. This section includes ALL of a patient's completed or amended [place] Advance and Rescinded Directives. The entries below indicate that a directive exists for the patient, but an actual copy is not included with this document. The data comes from all [place] facilities. Date Advance Directives Provider Source Jun 28, 2009 ADVANCE DIRECTIVE MANUELITO MORELOS Encounter Notes: All associated encounter notes This section contains the clinical notes associated to the Encounter. Date/Time Encounter Note(s) Provider Source Nov 28, 2023 11:28 AM OPTOMETRY CONSULT: LOCAL TITLE: CONSULT REPORT/OPTOMETRY OCT STANDARD TITLE: OPTOMETRY CONSULT DATE OF NOTE: NOV 28, 2023@11:28 ENTRY DATE: NOV 28, 2023@11:28:53 AUTHOR: ANUPAMA COONEY EXP COSIGNER: URGENCY: STATUS: COMPLETED Macula OCT report: Macula OCT reviewed for patient with dry AMD OU OD: normal foveal contour, diffuse small drusen and RPE disruption, area of atrophy inferior nasal to fovea (-)SRF/IRF OS: normal foveal contour, diffuse small drusen and RPE changes, area of atrophy inferior to fovea (-)SRF/IRF A/P: advanced non-exudative age-related macular degeneration OU without subfoveal involvement. Continue to monitor /devon/ ANUPAMA COONEY OD Air Conditioning Installer Signed: 11/28/2023 11:42 ANUPAMA COONEY [facility]
--- OUTSIDE RECORDS SUMMARY | 2024-06-10 11:18 | XMS_ITS ---
Author Name [facility] [place] [facility] [place] [facility] [place] Address [address] [place] [address] Care Team Providers Care Appointment Setter Name Role Phone BONITA HELMS Primary Care [...] Mueller's Name Patient's Relationship to Policy Mueller [facility] MEDICARE SUPPLEMEN MEGHANA MEDEX [facility] E Mar 12, 2016 [id number] PRIYANK TURPIN SEPH PATIENT MEDICARE (WNR) MEDICARE (M) PART B May 10, 2004 PART B [id number] PRIYANK TURPIN SEPH PATIENT MEDICARE (WNR) MEDICARE (M) PART B May 10, 2004 PART B [id number] [phone] PRIYANK TURPIN SEPH PATIENT MEDICARE (WNR) MEDICARE (M) PART A July 10, 1997 PART A [id number] PRIYANK TURPIN PATIENT MEDICARE (WNR) MEDICARE (M) PART A July 10, 1997 PART A [id number] [facility] [phone] PRIYANK TURPIN PATIENT Selected Encounter This section includes the information on record at [place] for the Encounter. Date/Time Encounter Type Encounter Description Reason Provider Source Jan 09, 2024 02:00 PM EVAL AUD FUNCJ 1ST HOUR AUDIOLOGY ICD-10-CM H90.3 Sensorineural hearing loss, bilateral CAMINITI,ELISA E IHE Encounter Template Text not used by [place] Assessments - Encounter Diagnoses This section includes the primary and secondary diagnoses documented for the Encounter. Date/Time Primary/Secondary Diagnosis Diagnosis Name Provider Source Jan 09, 2024 03:45 PM PRIMARY Sensorineural hearing loss, bilateral CAMINITI,ELISA E [place] [facility] [place] [facility] Plan of Treatment: Future Appointments (+ 6 months) and Future Tests (+/- 45 days) The Plan of Treatment section includes future care activities for the patient from all [place] [facility]. This section includes future appointments and future orders which are active, pending or scheduled. Future Appointments This section includes appointments that were scheduled to occur 6 months from the date of the Encounter, up to a maximum of 20 appointments. The data comes from all [place] treatment facilities. Appointment Date/Time Appointment Type Appointme nt Facility Name Feb 29, 2024 11:00 AM AMBULATORY - RE[facility] MEDICIN [place] Mar 17, 2024 11:00 AM AMBULATORY - REHAB MEDICIN E [place] [facility] [facility] Apr 11, 2024 01:00 PM AMBULATORY - REHAB MEDICIN E [place] May 06, 2024 10:30 AM AMBULATORY - [place] MEDICIN [place] [facility] [facility] May 22, 2024 11:30 AM [facility] [place] [facility] [place] [facility] Social History: Smoking Status (Most current) and Tobacco Use (All prior to encounter date) This section includes the most current, and the historical, smoking and tobacco- related health factors from the [facility] facility where the Encounter took place. Current Smoking Status This section includes the most current smoking, or tobacco-related health factor, from the [place] facility where the Encounter took place. Date/Time Current Smoking Status Comment Kathy unger Mar 24, 2022 10:01 AM VA-TOBACCO NEVER USED [place] [facility] [place] [facility] Advance Directives: All historical and current Section Date Range: From patient's date of to the date document was created. This section includes ALL of a patient's completed or amended [place] Advance and Rescinded Directives. The entries below indicate that a directive exists for the patient, but an actual copy is not included with this document. The data comes from all [place] facilities. Date Advance Directives Provider Source Jun 28, 2009 ADVANCE DIRECTIVE MANUELITO MORELOS Encounter Notes: All associated encounter notes This section contains the clinical notes associated to the Encounter. Date/Time Encounter Note(s) Provider Source Jan 09, 2024 09:57 AM AUDIOLOGY E & M NO TE: [facility] TITLE: AUDIOLOGY CLINIC STANDARD TITLE: AUDIOLOGY E & M NOTE DATE OF NOTE: JAN 09, 2024@09:57 ENTRY DATE: JAN 09, 2024@09:57:33 AUTHOR: ELISA HANLEY COSIGNER: URGENCY: STATUS: COMPLETED was seen 01-09-24 for a hearing re-evaluation/CI assessment. Hearing was last evaluated in 2022. He currently uses binaural [employer] Power BTEs, issued in 2022. He reports no otologic changes, denying tinnitus and vertigo. He states that he is generally having difficulty understanding what people are saying. He gives an example of the spiritism setting, where he can hear but cannot understand. Results are as follow: Otoscopy is WNL for both ears. Pure tone audiometric testing with headphones revealed a moderate sloping to profound sensorineural hearing loss bilaterally. Word recognition scores were poor with 36% correct for the right ear and 52% correct for the left ear for recorded speech presented at 90 dB HL (masked). Normal tympanograms were obtained bilaterally. Overall results are stable today in comparison to those from 2022. Verification of an appropriate acoustic response was obtained using Real Ear measurements (speech mapping) and NAL-NL1 targets. Gain increases were made to match targets. The reported good subjective benefit. Feedback fitness club manager was run. Hearing aids were found to be meeting targets adequately and MPO was not exceeding estimated UCL. Settings stored in ANUPAMA. Aided sound field testing was performed at 60 dB HL for the purpose of evaluating function for CI candidacy. In monaural conditions, a foam earplug was used in the unaided ear (NRR 33 dB). Results are below. Recorded speech results ([place] [facility]): binaural: 32% right ear only: 24% left ear only: 40% [employer] Sentence Test results: left ear only (list 6): 58/136= 43% right ear only (list 5):56/137= 41% binaural (list 4): 86/146= 59% Mcdougal and his were counseled on today's test results. CI candidacy was included in this discussion. is motivated to continue with the CI assessment process. He was given a booklet with information on the procedure and was counseled on expectations. A consult to the ENT at [facility] will be submitted for CT Scan of temporal bones without contrast. A second consult will be submitted to Audiology in [place]. to follow up with this clinic as needed and/or per recommendation of the ENT and/or [place] [facility]. /devon/ Ronaldo MULLER, [facility]-A STAFF X RAY CONTROL EQUIPMENT REPAIRER Signed: 01/09/2024 15:53 ELISA HANLEY [facility]
--- OUTSIDE RECORDS SUMMARY | 2024-06-10 11:18 | XMS_ITS | Encounter Summary ---
Author Organization [facility] Address [address] [place] [address] [place] [id number] Phone Care Team Providers Care Trailer Mechanic Name Role Phone Fidencio Johnson DO Primary Care Provider Un available William Mcghee DO Primary Care Provider [phone] Encounter Details Date Type Department Care Team (Late st Contact Info) Description 10/09/2016 Procedure Pass BWF Periop 6th floor [address] [place] [address] Social History Tobacco Use Types Packs/Day Years Used Date Smoking Tobacco: Former Cigarettes 2 15 1 972 - 1987 Smokeless Tobacco: Never Alcohol Use Standard Drinks/Week Comments No 0 (1 standard drink = 0.6 oz pur e alcohol) Sex and Gender Information Value Date Recorded [...] documented as of this encounter Care Teams Trailer Mechanic Relationship Specialty Start Date End Date Fidencio Johnson DO PCP - General Internal Medicine 5/10/17 4/18/18 William Mcghee DO [address] [place] [address] [address] [place] [address] PCP - General Internal Medicine 06/28/17 documented as of this encounter Additional Source Comments The information contained in this document represents components of the legal health record. It is not the complete legal health record.[facility]
--- OUTSIDE RECORDS SUMMARY | 2024-06-10 11:18 | XMS_ITS | Encounter Summary ---
Author Organization [facility] Address [address] [facility] [address] [place] [address] Phone Care Team Providers Care Homeworker Name Role Phone Fidencio Johnson DO Primary Care Provider Un available William Mcghee DO Primary Care Provider [phone] Encounter Details Date Type Department Care Team (Late st Contact Info) Description 01/22/2017 Procedure Pass BWF Periop 6th floor [address] [place] [address] Social History Tobacco Use Types Packs/Day Years [...] documented as of this encounter Care Teams Homeworker Relationship Specialty Start Date End Date Fidencio Johnson DO PCP - General Internal Medicine 07/19/16 06/27/17 William Mcghee DO [address] [place] [address] [address] [place] [address] PCP - General Internal Medicine 06/28/17 documented as of this encounter Additional Source Comments The information contained in this document represents components of the legal health record. It is not the complete legal health record.[facility]
--- OUTSIDE RECORDS SUMMARY | 2024-06-10 11:18 | XMS_ITS | Encounter Summary ---
Author Name [facility] [place] [facility] [place] Address [address] [place] [address] Care Team Providers Care Manager Of Distribution Name Role Phone BONITA HELMS Primary Care [...] Mueller's Name Patient's Relationship to Policy Mueller [facility] MEDICARE SUPPLEMEN [place] MEDEX [facility] E Mar 12, 2016 [id number] PRIYANK TURPIN SEPH PATIENT MEDICARE (WNR) MEDICARE (M) PART B May 10, 2004 PART B [id number] [phone] PRIYANK TURPIN SEPH PATIENT MEDICARE (WNR) MEDICARE (M) PART B May 10, 2004 PART B [id number] [phone] PRIYANK TURPIN SEPH PATIENT MEDICARE (WNR) MEDICARE (M) PART A July 10, 1997 PART A [id number] PRIYANK TURPIN PATIENT MEDICARE (WNR) MEDICARE (M) PART A July 10, 1997 PART A [id number] [facility] PRIYANK TURPIN PATIENT Selected Encounter This section includes the information on record at [place] for the Encounter. Date/Time Encounter Type Encounter Description Reason Provider Source May 22, 2024 11:30 AM OFFICE O/P EST LOW 20 MIN PODIATRY ICD-10-CM M21.762 Unequal limb length (acquired), left tibia NAHID RAMOS IHE Encounter Template Text not used by [place] Assessments - Encounter Diagnoses This section includes the primary and secondary diagnoses documented for the Encounter. Date/Time Primary/Secondary Diagnosis Diagnosis Name Provider Source May 23, 2024 03:19 PM PRIMARY Unequal limb length (acquired), left tibia NAHID RAMOS [facility] Plan of Treatment: Future Appointments (+ 6 months) and Future Tests (+/- 45 days) The Plan of Treatment section includes future care activities for the patient from all [facility] This section includes future appointments and future orders which are active, pending or scheduled. Future Appointments This section includes appointments that were scheduled to occur 6 months from the date of the Encounter, up to a maximum of 20 appointments. The data comes from all [place] treatment facilities. Appointment Date/Time Appointment Type Appointme nt Facility Name July 23, 2024 11:00 AM [facility] August 08, 2024 11:00 AM [facility] Sep 03, 2024 12:30 PM [facility] Active, Pending, and Scheduled Orders This section includes a listing of several types of active, pending, and scheduled orders, including clinic medications orders, diagnostic test orders, procedure orders and consult orders; where the start date of the order is 45 days before the date of the Encounter or 45 days after the date of theEncounter. The data comes from all [place] treatment [facility]. Test Date/Time Test Type Test Details Facility Name Jun 03, 2024 10:59 AM Consult Order COMMUNITY CARE-ENDOCRINE [facility] Jun 09, 2024 03:06 PM Consult Order CRANIAL ELECTROTHERAPY STIMULATION/SOPC OUTPT [facility] Jul 04, 2024 12:00 AM Laboratory - Chemistry Order ALCOHOL, ETHYL URINE PANEL [facility] Jul 04, 2024 12:00 AM Laboratory - Chemistry Order AMPHETAMINES SCREEN PANEL URINE (DRUG) [facility] Jul 04, 2024 12:00 AM Laboratory - Chemistry Order BENZODIAZEPINES SCREEN PANEL URINE (DRUG) [facility] Jul 04, 2024 12:00 AM Laboratory - Chemistry Order CANNABINOIDS SCREEN PANEL URINE (DRUG) [facility] Jul 04, 2024 12:00 AM Laboratory - Chemistry Order FENTANYL SCREEN PANEL URINE (DRUG) [facility] Jul 04, 2024 12:00 AM Laboratory - Chemistry Order BUPRENORPHINE SCREEN PANEL URINE (DRUG) [facility] Jul 04, 2024 12:00 AM Laboratory - Chemistry Order COCAINE SCREEN PANEL URINE (DRUG) [facility] Jul 04, 2024 12:00 AM Laboratory - Chemistry Order OPIATES SCREEN PANEL URINE (DRUG) [facility] Jul 04, 2024 12:00 AM Laboratory - Chemistry Order METHADONE SCREEN URINE SP [facility] Jul 04, 2024 12:00 AM Laboratory - Chemistry Order OXYCODONE SCREEN PANEL URINE (DRUG) SP [facility] Social History: Smoking Status (Most current) and Tobacco Use (All prior to encounter date) This section includes the most current, and the historical, smoking and tobacco- related health factors from the [place] facility where the Encounter took place. Current Smoking Status This section includes the most current smoking, or tobacco-related health factor, from the [place] facility where the Encounter took place. Date/Time Current Smoking Status Comment Kathy unger Mar 24, 2022 10:01 AM VA-TOBACCO NEVER USED [facility] Advance Directives: All historical and current Section Date Range: From patient's date of to the date document was created. This section includes ALL of a patient's completed or amended VA Advance and Rescinded Directives. The entries below indicate that a directive exists for the patient, but an actual copy is not included with this document. The data comes from all [place] facilities. Date Advance Directives Provider Source Jun 28, 2009 ADVANCE DIRECTIVE MANUELITO MORELOS Encounter Notes: All associated encounter notes This section contains the clinical notes associated to the Encounter. Date/Time Encounter Note(s) Provider Source May 22, 2024 11:55 AM PODIATRY NOTE: LOCAL TITLE: PODIATRY NOTE STANDARD TITLE: PODIATRY NOTE DATE OF NOTE: MAY 22, 2024@11:55 ENTRY DATE: MAY 22, 2024@11:55:30 AUTHOR: NAHID RAMOS EXP COSIGNER: URGENCY: STATUS: COMPLETED Podiatry [facility] Follow up Provider: Nahid Ramos Date: MAY 22, 2024 [address] T[address] [place], [place] [address] May 84 MALE [id number] PATIENT PHONE - Primary Care: BONITA HELMS Follow up Visit Concern:LLD for fu foot wear. History of chief complaint: Patient is an 84-year-old male who had complications and recurrent infections and left total knee replacement ultimately resulting in a complete fusion at the knee joint with no extension. Because of the bone resection required to achieve this patient has a significant limb length discrepancy and excessive 1-1/2 inches. He has been referred to the outside with a request for sneaker and external sole buildup on the left side. Subjective: Patient's complaint today is that he is unstable and the sneakers are far too loose. 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 10/08/2023 BONITA HELMS Hearing impaired H91.93 10/08/2023 BONITA HELMS Bladder cancer C67.9 09/21/2021 EYNI PUENTES Full thickness rotator cuff tear M7 06/11/2023 YENI PUENTES Cervical radiculopathy M54.12 09/16/2020 YENI PUENTES Coronary artery disease I25.10 10/08/2023 BONITA HELMS Localized, primary osteoarthritis M 08/28/2019 YENI PUENTES Trigger finger M65.322 04/05/2015 DAVIDBRETTMichelle autophony 799.9 08/14/2014 YENI PUENTES Age Macular Degeneration, Dry (Armd 02/02/2009 ALISON VILCHIS P OD Disorders of bursae and tendons in 04/07/2008 YENI PUENTES Retinal defect (ICD-9-CM 361.30) 36 06/06/2007 ALISON VILCHIS OD Refractive error (ICD-9-CM 367.9) 3 06/06/2007 ALISON VILCHIS OD Cataract, Cortical (Senile) 366.15 06/06/2007 ALISON VILCHIS OD Generalized anxiety disorder R69. 07/18/2016 ALTAGRACIA FONG Pancreatitis (SNOMED CT 60413910) K 07/02/2018 YENI PUENTES ENDOSCOPY 799.9 03/21/2011 YENI PUENTES Hematuria R31.9 02/18/2021 YENI PUENTES Foot drop 799.9 04/03/2013 YENI PUENTES Trochanteric Bursitis 799.9 04/07/2008 YENI PUENTES Screening for Malignant Neoplasms o 05/25/2014 YENI PUENTES SENSORNEUR HEAR LOSS NOS 389.10 05/04/2006 YENI PUENTES Gastroesophageal Reflux Disorder 53 05/25/2014 YENI PUENTES Hypertension (SNOMED CT 32766897) I 12/25/2014 YENI PUENTES Depressive Disorder NOS 311. 06/03/2004 ALTAGRACIA FONG Diabetes mellitus (SNOMED CT 119403 12/25/2014 YENI PUENTES HYPERLIPIDEMIA NEC/NOS 272.4 05/25/2014 YENI PUENTES Active mediciation: Active Outpatient Medications (including Supplies): Active Outpatient Medications Status 1) ACCU-CHEK GUIDE ME (GLUCOSE) METER USE METER TO TEST BLOOD ACTIVE SUGARS FOUR TIMES A DAY 2) AMLODIPINE BESYLATE 10MG TAB TAKE ONE TABLET BY MOUTH ONCE ACTIVE DAILY FOR BLOOD PRESSURE/HEART, DO NOT TAKE WITH GRAPEFRUIT JUICE REPLACE LOSARTAN 3) ATORVASTATIN CALCIUM 20MG TAB TAKE ONE TABLET BY MOUTH AT ACTIVE BEDTIME FOR CHOLESTEROL 4) CALCIUM 500MG/VITAMIN D 200 UNT TAB TAKE 1 TABLET BY MOUTH ACTIVE TWICE DAILY Indication: FOR CALCIUM SUPPLEMENT 5) CARBOXYMETHYLCELLULOSE NA 0.5% OPH SOLN INSTILL 1 DROP INTO ACTIVE EACH EYE FOUR TIMES DAILY NEEDED Indication: FOR DRY EYE 6) CREON 24,000UNIT EC CAP TAKE 3 CAPSULES BY MOUTH THREE TIMES ACTIVE A DAY 7) DEPEND UNDERWEAR,MAXIMUM,MEN LARGE USE 1 BRIEF DIRECTED ACTIVE ONCE DAILY NEEDED FOR PERSONAL CARE 8) GLUCOSE 4GM CHEW TAB CHEW FOUR TABLETS BY MOUTH NEEDED ACTIVE (S) Indication: FOR LOW BLOOD SUGAR 9) GLUCOSE SENSOR FREESTYLE FELICIANO 3 USE 1 SENSOR DIRECTED ACTIVE EVERY 14 DAYS 10) HYDROCODONE 5MG/ACETAMINOPHEN 325MG TAB TAKE 1 TABLET BY ACTIVE MOUTH THREE TIMES DAILY NEEDED Indication: FOR PAIN 11) INSULIN,ASPART,HUMAN 100 UNIT/ML INJ INJECT INSULIN ACTIVE SUBCUTANEOUSLY THREE TIMES DAILY NEEDED ACCORDING TO SLIDING SCALE 12) LANCET,SOFTCLIX USE 1 LANCET DIRECTED FOUR TIMES A DAY TO ACTIVE TEST BLOOD SUGAR 13) METOPROLOL TARTRATE 25MG TAB TAKE ONE-HALF TABLET BY MOUTH ACTIVE TWICE DAILY FOR BLOOD PRESSURE/HEART Indication: FOR MYOCARDIAL REINFARCTION PREVENTION 14) MULTIVIT/OPHTH AREDS2/LUTE/ZEAX CAP/TAB TAKE 1 CAPSULE BY ACTIVE MOUTH TWICE DAILY IN THE MORNING AND EVENING, WITH FOOD 15) SERTRALINE HCL 100MG TAB TAKE ONE TABLET BY MOUTH TWICE ACTIVE DAILY 16) TAMSULOSIN HCL 0.4MG CAP TAKE ONE CAPSULE BY MOUTH ONCE ACTIVE DAILY Indication: FOR ENLARGED PROSTATE 17) ZOLPIDEM TARTRATE 5MG TAB TAKE ONE TABLET BY MOUTH AT ACTIVE BEDTIME NEEDED Indication: FOR SLEEP Active Non-VA Medications Status 1) Non-VA NALOXONE HCL 4MG/SPRAY SOLN NASAL SPRAY 1 SPRAY ONE ACTIVE NOSTRIL ONE TIME NEEDED Indication: FOR OPIOID OVERDOSE 2) Non-VA OTHER CAP/TAB FISH OIL, 1000MG EVERY DAY ACTIVE 19 Total Medications Allergies: Data on this list may not be complete. Please check JLV. FACILITY ALLERGY/ADR -------- [place] [facility] [facility] CONTRAST MEDIA [facility] [place] [facility] CONTRAST MEDIA, OTHER [facility] [place] [facility] GUAFENESIN DEXTROMETHORPHAN SYRUP [facility] [place] [facility] RADIOLOGICAL/CONTRAST MEDIA PE: Elderly male 84 years old with left knee effusion No significant pedal or ankle deformity or condition other than limb length discrepancy Footwear needs to be lace completely tight to achieve any kind of security of the foot however there is room to build up by adding a density layer in the hind region x 2 and in the 4 region x 1. Doing this we were able to decrease the volume of the sneaker and thus provide a snug fit for the patient without any forefoot irritation. Impression: -Limb length discrepancy -Outside vendor footwear issue Plan: -Resolved with above measures Follow-up as needed /devon/ NAHID RAMOS DPM PODIATRY ATTENDING Signed: 05/23/2024 15:19 NAHID RAMOS [facility] [place] [facility]
--- OUTSIDE RECORDS SUMMARY | 2024-06-10 11:18 | XMS_ITS | Encounter Summary ---
Author Organization [facility] Address [address] [place] [address] Phone Care Team Providers Care Mathematician Name Role Phone William Mcghee DO Primary Care Provider [phone] Encounter Details Date Type Department Care Team (Late st Contact Info) Description 03/28/2019 Transcribe Orders [facility] [address] [address] Hubert Marrufo [address] [place] [id number] [email or web address] Social History Tobacco Use Types Packs/Day Years Used Date Smoking Tobacco: Former Cigarettes 2 15 972 1986 Smokeless Tobacco: Never Alcohol Use Standard [...] documented as of this encounter Results * CT Lower Extremity Outside (No Interpretation) (03/28/2019 9:37 AM EST) Narrative [facility] - 03/28/2019 9:37 AM EST This study is for PACS storage [...] documented as of this encounter Care Teams Mathematician Relationship Specialty Start Date End Date William Mcghee DO [address] [place] [address] [address] [place] [address] PCP - General Internal Medicine 06/28/17 documented as of this encounter Additional Source Comments The information contained in this document represents components of the legal health record. It is not the complete legal health record.[facility]
--- OUTSIDE RECORDS SUMMARY | 2024-06-10 11:18 | XMS_ITS | Continuity of Care Document ---
Author Organization [facility] [address] [facility] sherie [facility] [address] [place] [address] Phone [phone] Care Team Providers Care Director Phone Name Role Phone William Mcghee M.D. Care Team Information Rece iver [phone] Problems Active Problems Provider Date Type 1 diabetes mellitus Richy Davies M.D. Onset: 01/09/2022 Anxiety Richy Daveis M.D. Onset: 1 H/O: depression Richy Davies M.D. Onset: 1 Coronary artery bypass graft Richy Davies M.D. Onset: 01/09/2022 Insulin pump present Richy Davies M.D. Ons et: 01/09/2022 Carcinoma of bladder Richy Davies M.D. Ons et: 05/11/2022 History of pancreatectomy [place] Onset: 12/13/2023 Chronic kidney disease stage 3 Richy Davies M.D. Onset: 03/26/2024 Social History Type Date Description Comments Sex Unknown Tobacco Use Start: Unknown Never Smoked Cigarettes ETOH Use Occasionally consumes alcoho l Allergies and adverse reactions Description No Known Drug Allergies Medications Active Medications SIG Qnty Indications Order ing Provider Date Hydrocodone Bitartrate/Acetaminop hen5-325mg Tablets 1 tablet by mouth three times per day as needed 25tabs Richy Davies M.D. 12/13/2023 Zolpidem [id number] Tablets take 1 tablet by mouth at bedtime 30tabs Richy Davies M.D. 12/13/2023 [id number]/ML Solution inject 3 times daily before meals via insulin pump 30ml Richy Davies M.D. 11/08/2023 Tamsulosin HCL0.4mg Capsules 1 by mouth every day Richy Davies M.D. 05/30/2023 Metoprolol [id number] Tablets 1/2 tab by mouth twice a day 56tabs Richy Davies M.D. 11/22/2022 Sertraline FGQ010bs Tablets 1 by mouth every day 90tabs Richy Davies M.D. 11/22/[id number] C[address] Part 3 capsules tid Richy Davies M.D. 11/22/2022 Atorvastatin Hkamvnn18eb Tablets 1 by mouth every day 90tabs Richy Davies M.D. 11/22/2022 Vitamin D (Cholecalciferol)50mc g (1999 Ut) Capsules 1 by mouth every day Richy Davies M.D. 11/22/2022 Contour Next Blood Glucose TestStrips Test 3 Times A Day Dx: E11.8 300units E11.8 Richy Davies M.D. Amlodipine Xulczcvx32zl Tablets Take 1 Tablet By Mouth Every Day Unknown History Medications Hydrocodone-Acetaminophen7.5-325mg Tablets Richy Davies M.D. 03/26/2024 - 03/26/2024 Vital Signs Date Vital Result Comment 03/26/2024 10:26am BP Systolic 110 mmHg BP Diastolic 70 mmHg Heart Rate 72 /min Height 65 inches 5'5 Weight 157.50 lb BMI (Body Mass Index) 26.2 kg/m2 Results Test Acquired Date Facility Test Result H/L Range N ote Glucose Fingerstick 03/26/2024 Inhouse Glucose Fingerstick 226 Glucose Fingerstick 12/13/2023 Inhouse Glucose Fingerstick 216 Hemoglobin A1c 12/13/2023 Inhouse Hemoglobin A1c 7.6 Hemoglobin A1c 09/05/2023 Inhouse Hemoglobin A1c 7.9% Glucose Fingerstick 09/05/2023 Inhouse Glucose Fingerstick 243 Hemoglobin A1c 05/30/2023 Inhouse Hemoglobin A1c 10.5% Glucose Fingerstick 05/30/2023 Inhouse Glucose Fingerstick 157 Hemoglobin A1c 11/22/2022 Inhouse Hemoglobin A1c 8.9% Glucose Fingerstick 11/22/2022 Inhouse Glucose Fingerstick 286 Hemoglobin A1c 08/14/2022 Inhouse Hemoglobin A1c 8.5% Glucose Fingerstick 08/14/2022 Inhouse Glucose Fingerstick 350 Hemoglobin A1c 05/11/2022 Inhouse Hemoglobin A1c 8.0% Glucose Fingerstick 05/11/2022 Inhouse Glucose Fingerstick 147 Hemoglobin A1c 01/09/2022 Inhouse Hemoglobin A1c 8.9% Glucose Fingerstick 01/09/2022 Inhouse Glucose Fingerstick 283 Procedures Date Code Description Status 03/26/2024 44100 Glucose Monitoring Interpeta tion And Report Completed 09/05/2023 50002 Glucose Monitoring Interpeta tion And Report Completed 05/30/2023 05481 Glucose Monitoring Interpeta tion And Report Completed 11/22/2022 09860 Glucose Monitoring Interpeta tion And Report Completed 05/11/2022 57881 Glucose Monitoring Interpeta tion And Report Completed 01/09/2022 63821 Glucose Monitoring Interpeta tion And Report Completed Medical Devices Description No Information Available Encounters Type Date Location Provider Dx Diagnosis Office Visit 03/26/2024 10:30a Main Office Richy Davies M.D. E10.8 Type 1 diabetes mellitus with unspecified complications Assessments Date Code Description Provider 03/26/2024 E10.8 Disorder due to type 1 diabe gopal mellitus Richy Davies M.D. Plan of Treatment Future Appointment(s):* 07/23/2024 11:00 am - Richy Davies M.D. at Main Office 12/13/2023 - Richy Davies M.D.* E10.9 Type 1 diabetes mellitus without complications * Functional Status Description No Information Available Mental Status Description No Information Available Referrals Refer to Dr Reason for Referral Status Appt Richy Henry M.D. Created [address] [place] [address] [address] [place] [address] [phone]
--- OUTSIDE RECORDS SUMMARY | 2024-06-10 11:18 | XMS_ITS ---
Author Organization [facility] Address [address] [facility] [address] [place] [address] Care Team Providers Care Superintendent Recreation Name Role Phone Litzy DUMONT, William Primary Care Provider Hortensia Osborne Unavailable [phone] Allergies Allergen (clinical drug ingredient) Drug/Non Drug Allergy documented on EMR Reaction Allergy Type Onset Date Status Guaifenesin peeling Drug Allergy Activ e REASON FOR VISIT At Risk Footcare Medications Medication SIG (Take, Route, Frequency, Duration) Notes Start Date End Date Status Vancomycin Not-Takin g Sertraline HCl 100 MG 1 tablet Orally Active Multivitamin Active Creon 57460-34594 UNIT Orally Active Metoprolol Tartrate 25 MG 1 tablet with food Orally Twice a day Active rifAMPin Not-Taking Citalopram Hydrobromide 40 MG 1 tablet Orally Once a day for 30 day(s) Not-Taking Pravastatin Sodium 20 MG 1 tablet Orally Once a day for 30 day(s) Not-Taking Diltiazem HCl Coated Beads 180 MG 1 capsule Orally Once a day for 30 day(s) Not-Taking Lisinopril 2.5 MG 1 tablet Orally Once a day for 30 day(s) Not-Taking ALPRAZolam 0.5 MG 1 tablet Orally Thre e times a day Not-Taking Zenpep 38716 UNIT as directed Orally Not-Taking oxyCODONE HCl 5 MG 1 tablet Orally ever y 6 hrs Not-Taking Amoxicillin Not-Taki ng Fish Oil 1000 MG 1 capsule with a little l Orally Once a day for 30 day(s) Not-Taking Probiotic Not-Taking Extra Depth Orthopedic Shoes [...] (M20.41,M20.42), Preulcerative Skin Lesion(s) (L85.1 12/27/2018 Not-Taking Extra Depth Orthopedic Shoes (1 Pair) with Customized Heat Molded Multidensity Innersoles (3 Pair) as directed Dx: NIDDM/Polyneuropathy (E11.42), Hammertoe Foot Deformity (M20.41,M20.42), Preulcerative Skin Lesion(s) (L85.1 09/13/2017 Not-Taking Aspirin 81 MG 1 tablet Orally Once a day for 30 day(s) Not-Taking Lisinopril 2.5 MG Orally No t-Taking Clopidogrel Bisulfate 75 MG 1 tablet Orally Once a day Not-Taking Cholecalciferol Not- Taking Doxycycline Not-Taki ng Myrbetriq 50 MG 1 tablet Orally Once a day for 30 day(s) Not-Taking Insulin Active Tamsulosin HCl Activ e Extra-Depth Diabetic Shoes with 3 Pair Custom heat-molded multi-density innersoles . for 1 year . Dx:hammertoes and calloused lesions for . Active Gabapentin Not-Takin g Atorvastatin Calcium 80 MG 1 tablet Orally Once a day Active PreserVision AREDS 2 Active Vitamin D Active Social History Tobacco Use: Social History Observation [...] Signs Height 5 ft 7 in in 04/02/2024 Weight 156 lbs 04/02/2024 BMI 24.43 kg/m2 04/02/2024 Blood pressure systolic 130 mm Hg 04/02/19 25 Blood pressure diastolic 80 mm Hg 025 Procedures Procedure Date Ordered Date Performed Result Body Sit e 14325-NIWH SKIN LESIONS, 2 TO 4 04/02/2024 N/A Z2056-[id number] DYSTROPHIC NAILS ANY # 04/02/2024 N/A Encounters Encounter Location Date Provider Diagnosis [facility] [address] [place] [address] 04/02/2024 Hortensia Sparrow Type 2 diabetes katty itus with diabetic polyneuropathy E11.42 Assessments Encounter Date Diagnosis (ICD Code) Assessment Notes Treatment Notes Treatment Clinical Notes Section Notes 04/02/2024 Type 2 diabetes mellitus with diabetic polyneuropathy (ICD-10 - E11.42) Plan Of Treatment Pending Test Test Name Order Date 60263-TDUR SKIN LESIONS, 2 TO 4 04/02/19 25 M4206-[id number] DYSTROPHIC NAILS ANY # Next Appt Details Follow Up: prn, Reason: Provider Name:Hortensia Sparrow , 08/05/2024 11:15:00 AM, [address] [place] [address] [place], [address], Provider Name:Hortensia Sparrow , 10/07/2024 11:15:00 AM, [address] [place] [address], [id number], Procedure Notes * Category Sub-Category Detail Notes [...] stated and described in the exam ( VSUB MTH (s), 1, B/L ,), were pared, and/or cut utilizing a sterile 15 blade, tissue nippers, and/or power dremel instrumentation by the physician of record - 72291 Nail Reduction Nail Reduction (-27) Trimming o [...] - G0127 Progress Notes * Tay TURPINDOB:1940 (83 yo M)Acc No.[id number]:04/02/2024 Progress Note Patient:?Tay TURPIN Provider:?Hortensia Sparrow DPM :1940???Age:83 Y???Sex:Male Max e:04/02/2024 Address:[address] [place], [place] [id number] Pcp:William Mcghee MD Subjective: * Chief Complaints: * ???At Risk Footcare * HPI: ???At Risk footcare:?Pt States Last PCP Visit:?Date?03/25/2024 * ROS:?General/Constitutional:?Nausea?denies.?Vomiting?denies.?Hunger Thirst?denies.?Loss appetite?denies.?Chills?denies.?Fatigue?denies.?Fever?denies.?Night Sweats?denies.?Unexplained weight loss?denies.?Ophthalmologic:?Blurred vision?denies.?Red eye?denies.?HEENTM:?Dentures?denies.?Dizziness?denies.?Glasses/contacts?admits.?Retinopathy?de nies.?Blurred/double vision?denies.?TMJ?denies.?Discharge/drainage?denies.?Implants?denies.?Hard of hearing denies.?Difficulty chewing/swallowing/speaking?denies.?Nose bleeds?denies.?Sore mouth?denies.?Swollen glands?denies.?Respiratory:?On Oxygen?denies.?Pneumonia/pleurisy?denies.?Bronchitis?denies.?Emphysema?denies.?C oughing?denies.?Cough blood?denies.?Shortness of breath?denies.?Wheezing?denies.?Cardiovascular:?Pacemaker?denies.?MVP?denies.?WPW?denies.?CHF?denies.?Heart attack?denies.?Septal defect?denies.?Rapid beat?denies.?Chest pain ?denies.?Atrial Fib.?denies.?Murmur/Palpitations?denies.?Gastrointestinal:?Hemorrhoids?denies.?Stomach/Abdominal pain?denies.?Dark blood stool?denies.?Irritable bowel ?denies.?Constipation?denies.?Diarrhea?denies.?Vomiting?denies.?Hematology:?Swelling?denies.?Bruising?denies.?Bleeding problem?denies.?Genitourinary:?Blood urine?denies.?Frequent/Painfu/urination/bladder control?denies.?Kidney stones?denies.?Infection (UTI)?denies.?Nephropathy?denies.?Musculoskeletal:?Hammertoes?denies.?Bunions?denies.?Scoliosis/kyphosis?denies.?Muscle cramps / walking?denies.?Generalized aches and pains?denies.?Weakness?denies.?Integ.:?Nunez?denies.?Scars?denies.?Corns/calluses?denies.?Ingrown nails?admits.?Painful nails?admits.?Rashes?denies.?Neurologic:?Difficulty sleeping?denies.?Bipolar?denies.?Brain disorder?denies.?Balance trouble?denies.?Confusion?denies.?Fainting/blackouts?denies.?Headache?denies.?Tr emors?denies.? * Medical History:? * Surgical History:?back surge [...] yes, walking. ?Marital status: . 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 ???Drug/Alcohol:?AUDIT-C (Standard)?Did you have a drink containing alcohol in the past year??No ?Points?0 ?Interpretation?Negative * Medications:?TakingMetoprolo l Tartrate 25 MG Tablet 1 tablet with food Orally Twice a day Sertraline HCl 100 MG Tablet 1 tablet Orally Creon 82115-63766 UNIT Capsule Delayed Release Particles Orally Multivitamin [...] MG Tablet 1 tablet Orally Taking Creon 72191-07685 UNIT Capsule Delayed Release Particles Orally Taking [...] (M20.41,M20.42), Preulcerative Skin Lesion(s) (L85.1 Probiotic Zenpep 72662 UNIT Capsule Delayed Release Particles as directed [...] Skin Lesion(s) (L85.1 Not-Taking/PRN Probiotic Not-Taking/PRN Zenpep 90661 UNIT Capsule Delayed Release Particles as directed [...] Wt: 1 56, BMI: 24.43, Shoe size: 9.5, BP: 130/80 mm Hg, BS: 98, Wt-k.76 kg. * ???Past Orders: ???Lab:HEMOGLOBIN A1C (GLYCO HEMOGLOBIN) (Order Date - 04/01/2024) (Collection Date & Time - 04/01/2024 01:17 PM) ? Value Reference Range ?HEMOGLOBIN A1C % (HH) 8.0 * Examination: ???Ophthalmology Referral: ?DIABETES EYE EXAM?Procedure Performed:?No ?Diabetic Retinopathy Screening:?Yes ?Findings of Diabetic Eye Exam:?no retinopathy?General Examination: ?GENERAL APPEARANCE:?Reveals a pleasant, alert, well nourished, well- developed, well hydrated individual, who demonstrates proper attention to hygiene/body habitus, and is in no acute distress, Pt serves as own historian for office visit today.?ORIENTED:?person, place, and time.?Nails: ?NAILS are:?Elongated, overgrown, dystrophic, [...] sharp/dull pin prick discrimination , Pt relates cont. anesthesia, burning, Forefoot,?.?Vascular: ?DP PULSES (B):?1/4, B/L ,.?PT PULSES (B):?2/4, B/L ,.? Assessment: * Assessment: 1.?Type 2 diabetes mellitus [...] stated and described in the exam ( VSUB MTH (s), 1, B/L ,), were pared, and/or cut utilizing a sterile 15 blade, tissue nippers, and/or power dremel instrumentation by the physician of record - 18584.?Nail Reduction:?Nail Reduction?(-27) Trimming of all dystrophic nails [...] or bed tissue - G0127.? * Procedure Codes:?11830 TRIM SKIN LESIONS, 2 TO 4, Modifiers: XS G0127 TRIMMING DYSTROPHIC NAILS ANY #, Modifiers: XS * Preventive Medicine:? ??Screening/Special Tests:?Fall Risk?Assessment:?Performed ?Plan of Care:?Not documented, due to medical reason ?Screening:?Two or more falls without injury in the past year ?FALLS: Screening for Future Fall Risk?Have you had two or more falls in the past year??Yes ?Have you had any falls with injury in the past year??No * Follow Up:?prn * Images: * Sign off status: Completed true * Provider:Russ Sparrow DPM Date:?2024 Generated for Printi ng/Facharlyg/eTransmitting on:?06/10/2024 11:17 AM EDT History and Physical Notes * [...] sharp/dull pin prick discrimination , Pt relates cont. anesthesia, burning, Forefoot, Dermatologic SKIN FINDINGS: Skin exam reveal s Keratotic lesion(s) located at, SUB MTH (s), 1, B/L , General Examination GENERAL APPEARANCE: Reveals a pleasant, alert, well nourished, well-developed, well hydrated individual, who demonstrates proper attention to hygiene/body habitus, and is in no acute distress, Pt serves as own historian for office visit today ORIENTED: person, place, and t codey Ophthalmology Referral DIABETES EYE EXAM Procedure Perform ed:: No Diabetic Retinopathy Screening:: Yes Findings of Diabetic Eye Exam:: no retin opathy Vascular DP PULSES (B): 1/4, B/L , PT PULSES (B): 2/4, B/L , Nails NAILS are: Elongated, overg rown, dystrophic, ,, TA, T1, T2, T3, T4, T5, T6, T7, T8, T9
--- OUTSIDE RECORDS SUMMARY | 2024-06-10 11:18 | XMS_ITS | Encounter Summary ---
Author Name [facility] Organization [facility] [place] Address [address] [place] [id number] Care Team Providers Care Skin Former Name Role Phone BONITA HELMS Primary Care [...] Relationship to Policy Mueller [place] [facility] E Mar 12, 2016 [id number] PRIYANK TURPIN SEPH PATIENT MEDICARE (WNR) MEDICARE (M) PART B May 10, 2004 PART B [id number] [phone] PRIYANK TURPIN SEPH PATIENT MEDICARE (WNR) MEDICARE (M) PART B May 10, 2004 PART B [id number] PRIYANK TURPIN SEPH PATIENT MEDICARE (WNR) MEDICARE (M) PART A July 10, 1997 PART A [id number] PRIYANK TURPIN PATIENT MEDICARE (WNR) MEDICARE (M) PART A July 10, 1997 PART A [id number] [facility] [phone] PRIYANK TURPIN PATIENT Selected Encounter This section includes the information on record at [place] for the Encounter. Date/Time Encounter Type Encounter Description Reason Provider Source Nov 27, 2023 11:00 AM HEARING AID REPAIR/MODIFYIN G AUDIOLOGY ICD-10-CM Z46.1 Encounter for fitting and adjustment of hearing aid DONI JAIN Luiza Encounter Template Text not used by [place] Assessments - Encounter Diagnoses This section includes the primary and secondary diagnoses documented for the Encounter. Date/Time Primary/Secondary Diagnosis Diagnosis Name Provider Source Nov 27, 2023 11:41 AM PRIMARY Encounter for fitting and adjustment of hearing aid [facility] Nov 27, 2023 11:41 AM SECONDARY Sensorineural hearing loss, bilateral BARB JAIN [facility] [place] [facility] Plan of Treatment: Future Appointments (+ 6 months) and Future Tests (+/- 45 days) The Plan of Treatment section includes future care activities for the patient from all [place] [facility]. This section includes future appointments and future orders which are active, pending or scheduled. Future Appointments This section includes appointments that were scheduled to occur 6 months from the date of the Encounter, up to a maximum of 20 appointments. The data comes from all [place] treatment facilities. Appointment Date/Time Appointment Type Appointme nt Facility Name Nov 28, 2023 10:30 AM AMBULATORY - MEDICINE [place] [facility] [place] [facility] Nov 28, 2023 11:30 AM AMBULATORY - MEDICINE [place] [facility] [place] [facility] Nov 28, 2023 11:45 AM AMBULATORY - MEDICINE [place] [facility] [place] [facility] Jan 09, 2024 02:00 PM AMBULATORY - REHAB MEDICIN [place] [facility] [place] [facility] Feb 29, 2024 11:00 AM AMBULATORY - REHAB MEDICIN E [place] Mar 17, 2024 11:00 AM AMBULATORY - REHAB MEDICIN E [place] [facility] [place] [facility] Apr 11, 2024 01:00 PM AMBULATORY - REHAB MEDICIN E [place] May 06, 2024 10:30 AM AMBULATORY - REHAB MEDICIN E [facility] May 22, 2024 11:30 AM [facility] Social History: Smoking Status (Most current) [...] place. Date/Time Current Smoking Status Comment Kathy itdiane Mar 24, 2022 10:01 AM VA-TOBACCO NEVER USED [facility] Advance Directives: All historical and current [...] Encounter. Date/Time Encounter Note(s) Provider Source Nov 27, 2023 11:35 AM AUDIOLOGY E & M NO TE: [facility] TITLE: AUDIOLOGY CLINIC STANDARD TITLE: AUDIOLOGY E & M NOTE DATE OF NOTE: NOV 27, 2023@11:35 ENTRY DATE: NOV 27, 2023@11:35:05 AUTHOR: DONI JAIN COSIGNER: URGENCY: STATUS: COMPLETED Dx: Sensorineural hearing loss, bilateral was seen today for a hearing aid follow-up appointment. He was accompanied by his given his verbal consent. [place] was issued bilateral Ravin [employer] AI Power + BTEs on 04/17/22. He reports the tubing from his right earmold. has been wearing his older pair of Ravin BTEs. Both sets of 's Ravin BTEs were cleaned and checked. All debris was removed from the microphones, and the microphone covers, tone hooks, tubes, and batteries were replaced. Listening check post maintenance was positive for all four hearing aids. [place] agreed to have CI consultation scheduled at [facility]. He and his are aware they would still have to travel to [place] if he is considered to be a candidate for a CI. is scheduled for a two hour CI evaluation on 12/27/23 at 2pm. /devon/ Caro Landry, YURY-A Antenna Rigger Signed: 11/27/2023 11:41 [facility]AIN [facility]
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
--- OUTSIDE RECORDS SUMMARY | 2024-06-10 11:18 | XMS_ITS | Encounter Summary ---
Author Organization [facility] Address [address] [place] [phone] Phone Care Team Providers Care Curing Oven Tender Name Role Phone Fidencio Johnson DO Primary Care Provider Un available William Mcghee DO Primary Care Provider [phone] Encounter Details Date Type Department Care Team (Late st Contact Info) Description 01/15/2017 Procedure Pass BWF Periop 6th floor [address] [place] [address] Social History Tobacco Use Types Packs/Day Years [...] documented as of this encounter Care Teams Curing Oven Tender Relationship Specialty Start Date End Date Fidencio Johnson DO PCP - General Internal Medicine 07/19/16 06/27/17 William Mcghee DO [address] [place] [address] [address] [place] [address] PCP - General Internal Medicine 06/28/17 documented as of this encounter Additional Source Comments The information contained in this document represents components of the legal health record. It is not the complete legal health record.[facility]
--- OUTSIDE RECORDS SUMMARY | 2024-06-10 11:18 | XMS_ITS ---
Author Name [facility] [place] [facility] [facility] [place] Address [address] [place] [address] Care Team Providers Care Dry Roller Name Role Phone BONITA HELMS Primary Care [...] MEGHANA MEDEX ANDRY E Mar 12, [id number] [phone] [id number] PRIYANK TURPIN SEPH PATIENT MEDICARE (WNR) MEDICARE (M) PART B May 10, 2004 PART B [id number] PRIYANK TURPIN SEPH PATIENT MEDICARE (WNR) MEDICARE (M) PART B May 10, 2004 PART B [id number] PRIYANK TURPIN SEPH PATIENT MEDICARE (WNR) MEDICARE (M) PART A July 10, 1997 PART A [id number] PRIYANK TURPIN PATIENT MEDICARE (WNR) MEDICARE (M) PART A July 10, 1997 PART A [id number] [facility] PRIYANK TURPIN PATIENT Selected Encounter This section includes the information on record at [place] for the Encounter. Date/Time Encounter Type Encounter Description Reason Provider Source Oct 15, 2023 10:30 AM [facility]-SERV OF OT,EA 15 MIN [facility] - THERAPIST ICD-10-CM R26.9 Unspecified abnormalities of gait and mobility PRINCESS FRANCO [facility] Encounter Template Text not used by [place] Assessments - Encounter Diagnoses This section includes the primary and secondary diagnoses documented for the Encounter. Date/Time Primary/Secondary Diagnosis Diagnosis Name Provider Source Oct 15, 2023 05:45 PM PRIMARY Unspecified abnormalities of gait and mobility PRINCESS FRANCO [place] [facility] [place] [facility] Plan of Treatment: Future Appointments (+ 6 months) and Future Tests (+/- 45 days) The Plan of Treatment section includes future care activities for the patient from all [place] treatmentfacilities. This section includes future appointments and future orders which are active, pending or scheduled. Future Appointments This section includes appointments that were scheduled to occur 6 months from the date of the Encounter, up to a maximum of 20 appointments. The data comes from all [place] treatment facilities. Appointment Date/Time Appointment Type Appointme nt Facility Name Oct 16, 2023 10:00 AM AMBULATORY - MEDICINE [facility] Nov 27, 2023 11:00 AM [facility] [place] [facility] Nov 28, 2023 10:30 AM AM[facility] MEDICINE [facility] [place] [facility] Nov 28, 2023 11:30 AM AM[facility]ATORY - MEDICINE [facility] [place] [facility] Nov 28, 2023 11:45 AM AMBULATORY - MEDICINE [facility] [place] [facility] Jan 09, 2024 02:00 PM AMBULATORY [facility] [place] [facility] Feb 29, 2024 11:00 AM AMBULATORY - REHAB MEDICIN [facility] Mar 17, 2024 11:00 AM AMBULATORY - REHAB [facility]IN [facility] [place] [facility] Apr 11, 2024 01:00 PM AMBULATORY - REHAB [facility] Social History: Smoking Status (Most current) and Tobacco Use (All prior to encounter date) This section includes the most current, and the historical, smoking and tobacco- related health factors from the [place] facility where the Encounter took place. Current Smoking Status This section includes the most current smoking, or tobacco-related health factor, from the [place] facility where the Encounter took place. Date/Time Current Smoking Status Comment Kathy unger Mar 24, 2022 10:01 AM VA-TOBACCO NEVER USED [place] [facility] Advance Directives: All historical and current Section Date Range: From patient's date of to the date document was created. This section includes ALL of a patient's completed or amended [place] Advance and Rescinded Directives. The entries below indicate that a directive exists for the patient, but an actual copy is not included with this document. The data comes from all [place] facilities. Date Advance Directives Provider Source Jun 28, 2009 ADVANCE DIRECTIVE MANUELITO MORELOS Encounter Notes: All associated encounter notes This section contains the clinical notes associated to the Encounter. Date/Time Encounter Note(s) Provider Source Oct 15, 2023 10:20 AM [facility] CONSULT: LOCAL TITLE: CONSULT REPORT/[facility]/OCCUPATIONAL THERAPY EVALUATION STANDARD TITLE: [facility] CONSULT DATE OF NOTE: OCT 15, 2023@10:20 ENTRY DATE: OCT 15, 2023@17:04:47 AUTHOR: PRINCESS FRANCO EXP COSIGNER: URGENCY: STATUS: COMPLETED Occupational Therapy Assessment (X)Initial ( )Annual ( )Other Date: 10/15/2023 Time: 10:30-11:30 am PATIENT IDENTIFIERS (2): SSN X FULL NAME X Diagnosis: Weakness(ICD-10-CM R53.1) PMH: Active problems - Computerized Problem List is the source for the followin. Bladder cancer New Dx 2021 2. Full thickness rotator cuff tear RC Tear, R Side 2011; He Elects NOT to Do Surg Severe OA and Prob. RC Tear, L Shldr MAR 03: Declines Surg; Fall in Shower Seen by [facility] MAR 03; Surg Offered; He Declines 3. Cervical radiculopathy Has Seen Both Chiropractor and [facility]; CCS Inj.;s via [facility] 2020 4. Coronary artery disease CABG Years Ago 5. Localized, primary osteoarthritis TKR, L Side 2015; did Rehab; MRSA Post-Op; Admitted w/ IV Abx's Few Weeks (now in PO abx); Can't Ext Knee as of MAR 28: Pending Kneading of Scar Tissue Surg Revision (in JAN 26), of Hardware, from Previous TKR, L Side pending More Revisional Hardware JUN 27 Fell Twice 2018; Returning to Ortho; [place], Femur Intact ??? On Chemo-Prophylaxis for Sepsis Leg Last Saw Ortho AUGUST 29: No Complications Noted s/p L Knee Fusion 6. Trigger finger 7. autophony Inner Ear Pathology AU; see ENT note dated JAN 23 8. 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 Disorders of bursae and tendons in shoulder region Surg Repair, RC Tear, R Shldr, DEC 18 (a Chronicity) 10. Retinal defect 11. Refractive error 12. Cataract, Cortical (Senile) 13. Generalized anxiety disorder 14. Pancreatitis (SNOMED CT 18724993) 15. ENDOSCOPY Endoscopy JAN 16 privately (pt. not sure why) Reflux - Prilosec helps a lot 16. Hematuria 17. Foot drop Foot Drop, R side; Hx L5-S1 Lesion (wears brace on foot) Surg OCT 18 new Arthritis both Feet as of MAR 25; sees private Podiatry 18. Trochanteric Bursitis gets Iontophoresis privately 19. Screening for Malignant Neoplasms of colon colonoscopy done OCT 14 at [facility] NEG CRC - repeat 2009; paper report in paper Health records pending one more colonoscopy in 2014 20. SENSORNEUR HEAR LOSS NOS subjective tinnitus 21. Gastroesophageal Reflux Disorder no hx of ulcer, gi bleed or scope. 22. Hypertension (SNOMED CT [id number]) +Renal Cysts Bilat (US OCT 16); refer URO to R/O RCC Post-Op Dx of Left Renal Mass was Neg CA (Surg FEB 15, [facility] Proteinuria; saw private Nephro APR 22, Dr Souza [phone] 23. Depressive Disorder NOS 24. Diabetes mellitus (SNOMED CT [id number]) no DR per retinal exam on AUGUST 15 secondary Proteinuria ; Stable Renal Function as of APR 22 on Percutaneous Insulin Pump as of SEPTEMBER 20 25. HYPERLIPIDEMIA NEC/NOS WHAT MATTERS What Matters was addressed at this visit. Comment: remain living in home with as independently as possible MOBILITY -------- Mobility was addressed at this visit. Comment: -[facility] score 7 VITALS: not formally assessed SOCIAL HISTORY/DEMOGRAPHICS: [place] is an 83 yo male who lives in a single family home with his . He has a very supportive son who lives nearby. He is able to care for himself and continues to drive short distances. He manages his own meds. SUBJECTIVE: pleasant, social COGNITIVE STATUS: alert, oriented PAIN: left knee 09/18; multiple surgeries- fixed in extension with christofer FALLS: significant history but none unreported OBJECTIVE: was referred to Occupational Therapy for home safety evaluation and assess need for adaptive equipment. PHYSICAL ASSESSMENT OF ROM/MMT: UE ROM limited both shlds flexion/abd ~ 80 degrees due to RTC injuries- receives injections q 3 months in left per his reports; has declined surgery for repair Left knee with 0 flexion to due permanent fixation of LLE; LLE leg length discrepancy 1 shorter than right- has shoe lift FUNCTIONAL TRANSFERS: modified independent FUNCTIONAL MOBILITY: modified independent with rollator; drives [employer] Dressing: self Bathing: self- showers Toileting: modified independent with comfort height toilet and wall grab bars- rec toilet safety rails for improved technique Eating: feeds self HOME SAFETY CHECKLIST: Type of Home - single family with basement Stairs to enter - 2 in front; ramp in garage purchased by son- not ADA Stairs in the home - full set to basement with rails but difficult for [place] to navigate Railings at all stair locations - yes Lighting (y = safe; n = not safe) Stairs - y Bathroom -y Kitchen -y General -y Floor type Bathroom - tile Kitchen - tile General - wood Appropriate Shoes - yes; shoe lift LLE Bathtub/Shower Type - walk in shower Toilet Type - comfort height elongated Kitchen - eat in Clutter - no Cleanliness - good Clear Walking Paths - yes Throw Rugs - area rug in living room, small rug at bedside to prevent slipping- does not want to remove either and reports he does not trip Medications Stored Properly - manages own meds Smoke Detectors/CO Detectors working - yes Outside home environment - lawn and pavement Smoking - no Oxygen - no Oxygen Safety (if above is yes, reviewed with patient) Oxygen Sign Posted on Front Door No Open Flames 10/10 Rule Oxygen Tank Storage No Petroleum Products On/Near Face How does the patient/client best learn? verbal cues and demonstration Does the patient/client have any cultural and roman catholic beliefs, emotional barriers, physical or cognitive limitations, and communication barriers which may impact his/her ability to learn? no Desire and motivation to learn? good Other Safety: Telephone: cell phone Tripping/safety hazards: cat, area rugs Emergency: Guardian Alert- necklace EQUIPMENT: Rollator, cane, transport wheelchair, shower chair, grab bars, hand held shower, ramp in garage, hearing aides, glasses, ERS, scooter PATIENT EDUCATION: regarding tripping hazards, ramp not ADA Assessment/Recommendations: [place] is highly participatory in self-care and home management tasks. He manages his own medication and continues to drive, despite inability to bend left knee. He ambulates with a Rollator or a cane and has a scooter for community mobility when indicated. [place] reports they have tried a homemaker in the past but did not feel it was helpful. would benefit from a few home safety modifications including a bed transfer handle, toilet safety rails, a new shower seat with arms and back, and possibly a new ramp. Will also explore feasibility of stair glide for safe use of basement. GOALS: will: 1). receive ramp assessment and proceed with recommendation as appropriate. 2). receive and use bed transfer handle. 3). receive and use toilet safety rails. 4). receive and use shower seat with back and arms. 5). explore stair glide assessment. Plan: OT 1-3 visits- Will order equipment and assessments as noted above and follow up accordingly. The practitioner's co-signature on this note signifies agreement with plan of care and clinical diagnosis code. /devon/ Princess Franco [facility] Occupational Therapist Signed: 10/15/2023 17:45 Receipt Acknowledged By: 10/18/2023 16:35 /devon/ BONITA HELMS [facility] NURSE PRACTITIONER PRINCESS FRANCO [facility]
--- OUTSIDE RECORDS SUMMARY | 2024-06-10 11:18 | XMS_ITS | Encounter Summary ---
Author Organization [facility] Address [address] [address] Phone Care Team Providers Care Double Surface Operator Name Role Phone William Mcghee DO Primary Care Provider [phone] Encounter Details Date Type Department Care Team (Late st Contact Info) Description 07/23/2018 Transcribe Orders [facility] [address] [place] [phone] Hubert Marrufo [address] [place] [id number] [email or web address] Social History Tobacco Use Types Packs/Day Years [...] documented as of this encounter Care Teams Double Surface Operator Relationship Specialty Start Date End Date William Mcghee DO [address] [place] [address] [address] [place] [address] PCP - General Internal Medicine 06/28/17 documented as of this encounter Additional Source Comments The information contained in this document represents components of the legal health record. It is not the complete legal health record.[facility]
--- OUTSIDE RECORDS SUMMARY | 2024-06-10 11:18 | XMS_ITS ---
Author Organization [facility] Address [address] [place] [address] Care Team Providers Care Dental Internship Name Role Phone Litzy DUMONT, William Primary Care Provider Hortensia Osborne Unavailable [phone] Allergies Allergen (clinical drug ingredient) Drug/Non Drug Allergy documented on EMR Reaction Allergy Type Onset Date Status Guaifenesin peeling Drug Allergy Activ e REASON FOR VISIT At Risk Footcare Medications Medication SIG (Take, Route, Frequency, Duration) Notes Start Date End Date Status Pravastatin Sodium 20 MG 1 tablet Orally Once a day for 30 day(s) Not-Taking Diltiazem HCl Coated Beads 180 MG 1 capsule Orally Once a day for 30 day(s) Not-Taking Vancomycin Not-Takin g rifAMPin Not-Taking Lisinopril 2.5 MG 1 tablet Orally Once a day for 30 day(s) Not-Taking Citalopram Hydrobromide 40 MG 1 tablet Orally Once a day for 30 day(s) Not-Taking Fish Oil 1000 MG 1 capsule with a little l Orally Once a day for 30 day(s) Not-Taking oxyCODONE HCl 5 MG 1 tablet Orally ever y 6 hrs Not-Taking Amoxicillin Not-Taki ng ALPRAZolam 0.5 MG 1 tablet Orally Thre e times a day Not-Taking Zenpep 96077 UNIT as directed Orally Not-Taking Tamsulosin HCl Activ e Probiotic Not-Taking Extra Depth Orthopedic Shoes (1 Pair) with Customized Heat Molded Multidensity Innersoles (3 Pair) as directed Dx: NIDDM/Polyneuropathy (E11.42), Hammertoe Foot Deformity (M20.41,M20.42), Preulcerative Skin Lesion(s) (L85.1 12/27/2018 Not-Taking Extra Depth Orthopedic Shoes (1 Pair) with Customized Heat Molded Multidensity Innersoles (3 Pair) as directed Dx: NIDDM/Polyneuropathy (E11.42), Hammertoe Foot Deformity (M20.41,M20.42), Preulcerative Skin Lesion(s) (L85.1 09/13/2017 Not-Taking Cholecalciferol Not- Taking Doxycycline Not-Juan A ng Lisinopril 2.5 MG Orally No t-Taking Extra Depth Orthopedic Shoes (1 Pair) with Customized Heat Molded Multidensity Innersoles (3 Pair) as directed Dx: NIDDM/Polyneuropathy (E11.42), Hammertoe Foot Deformity (M20.41,M20.42), Preulcerative Skin Lesion(s) (L85.1 05/31/2016 Not-Taking zzzExtra Depth Orthopedic Shoes (1 Pair) with Customized Heat Molded Multidensity Innersoles (3 Pair) . . . Dx: IDDM/Polyneuropathy (E10.42), Hammertoe Foot Deformity (M20.41,M20.42), Preulcerative Skin Lesion(s) (L85.1) for . 05/04/2015 Not-Juan A browning Clopidogrel Bisulfate 75 MG 1 tablet Orally Once a day Not-Taking Aspirin 81 MG 1 tablet Orally Once a day for 30 day(s) Not-Taking Myrbetriq 50 MG 1 tablet Orally Once a day for 30 day(s) Not-Taking Gabapentin Not-Nirmala g Extra-Depth Diabetic Shoes with 3 Pair Custom heat-molded multi-density innersoles . for 1 year . Dx:hammertoes and calloused lesions for . Active Atorvastatin Calcium 80 MG 1 tablet Orally Once a day Active PreserVision AREDS 2 Active Multivitamin Active Insulin Active Vitamin D Active Creon 79516-75780 UNIT Orally Active Sertraline HCl 100 MG 1 tablet Orally Active Metoprolol Tartrate 25 MG 1 tablet with food Orally Twice a day Active Social History Tobacco Use: Social History Observation Description Date Details (start date - stop date) Former Smoker NA - NA Tobacco Use/Smoking Question Answer Notes Are you a: former smoker How long has it been since you last smoked? < 1 month Additional Findings: Tobacco Non-User Current no n-smoker Tobacco use other than smoking: Question Answer Notes Are you an other tobacco user? No Vital Signs Height 5 ft 7 in in 01/02/2024 Weight 156 lbs 01/02/2024 BMI 24.43 kg/m2 01/02/2024 Procedures Procedure Date Ordered Date Performed Result Body Sit e 88594-UJEO SKIN LESIONS, 2 TO 4 01/02/2024 N/A K1573-GYZHLYKC DYSTROPHIC NAILS ANY # 01/02/2024 N/A Encounters Encounter Location Date Provider Diagnosis [facility] [place] [address] [address] [facility] [place] [address] 01/02/2024 Hortensia Sparrow Type 2 diabetes katty itus with diabetic polyneuropathy E11.42 Assessments Encounter Date Diagnosis (ICD Code) Assessment Notes Treatment Notes Treatment Clinical Notes Section Notes 01/02/2024 Type 2 diabetes mellitus with diabetic polyneuropathy (ICD-10 - E11.42) Plan Of Treatment Pending Test Test Name Order Date 29297-ENEU SKIN LESIONS, 2 TO 4 01/02/20 24 A9375-OPPRIKZO DYSTROPHIC NAILS ANY # Next Appt Details Follow Up: prn, Reason: Provider Name:Hortensia Sparrow , 08/05/2024 11:15:00 AM, [facility] [place] [address] [place], [address], Provider Name:Hortensia Sparrow , 10/07/2024 11:15:00 AM, [facility] [place] [address] [place] [address] [place], [address], Procedure Notes * Category Sub-Category Detail Notes Keratoma Treatment Parring or Cutting o f Benign Hyperkeratotic Lesion(s) 70067 (2-4 Lesions) - The Benign hyperkeratotic lesions, as described above were pared, and/or cut utilizing a sterile #15 blade, tissue nippers, and/or dremel Nail Reduction Nail Reduction Trimming of dyst rophic nails performed to reduce/remove overall nail length and girth, by manual and electrical means with use of a nail nipper and/or dremel, to more viable healthy nail plate or bed tissue 6-10 (G0127) Progress Notes * Damien TURPIN:1940 (83 yo M)Acc No.[id number]:01/02/2024 Progress Note Patient:Tay Thomas Provider:?Hortensia Sparrow DPM :1940???Age:83 Y???Sex:Male Max e:01/02/2024 Address:[address] [place], [place] [address] Pcp:William Mcghee MD Subjective: * Chief Complaints: * ???At Risk Footcare * HPI: ???At Risk footcare:?Pt States Last PCP Visit:?Date?11/15/2023 * Medical History:? * Surgical History:?back surge [...] kidney/liver disease.?Spouse: alive.? * Social History:?Tobacco Use:?Tobacco Use/Smoking?Are you a:?former smoker ?How long has it been since you last smoked??< 1 month ?Additional Findings: Tobacco Non-User?Current non-smoker ?Tobacco use other than smoking?Are you an other tobacco user??No ???Drugs/Alcohol:?Drugs?Have you used drugs other than those for medical reasons in the past 12 months??No ?Alcohol Screen?Did you have a drink containing alcohol in the past year?: Yes, How often did you have a drink containing alcohol in the past year?: Monthly or less (1 point), How many drinks did you have on a typical day when you were drinking in the past year?: 1 or 2 drinks (0 point), Points: 1, Interpretation: Negative.?Miscellaneous:?Caffeine: yes, 1-2 cups per day. ?Children: yes, 1 living. ?Exercise: yes, walking. ?Marital status: . 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 * Medications:?TakingMetoprolo l Tartrate 25 MG Tablet 1 tablet with food Orally Twice a daySertraline HCl 100 MG Tablet 1 tablet Orally Creon 11597-96376 UNIT Capsule Delayed Release Particles Orally Multivitamin PreserVision AREDS 2 Atorvastatin Calcium 80 MG Tablet 1 tablet Orally Once a dayVitamin D Insulin Extra-Depth Diabetic Shoes with 3 Pair Custom heat-molded multi-density innersoles . . for 1 year . Dx:hammertoes and calloused lesionsTamsulosin HCl Taking Metoprolol Tartrate 25 MG Tablet 1 tablet with food Orally Twice a dayTaking Sertraline HCl 100 MG Tablet 1 tablet Orally Taking Creon 32940-28438 UNIT Capsule Delayed Release Particles Orally Taking Multivitamin Taking PreserVision AREDS 2 Taking Atorvastatin Calcium 80 MG Tablet 1 tablet Orally Once a dayTaking Vitamin D Taking Insulin Taking Extra- Depth Diabetic Shoes with 3 Pair Custom heat-molded multi-density innersoles . . for 1 year . Dx:hammertoes and calloused lesionsTaking Tamsulosin HCl Not- Taking/PRNGabapentin Myrbetriq 50 MG Tablet Extended Release 24 Hour 1 tablet Orally Once a dayAspirin 81 MG Tablet Chewable 1 tablet Orally Once a dayClopidogrel Bisulfate 75 MG Tablet 1 tablet Orally Once a dayLisinopril 2.5 MG Tablet Orally Doxycycline Cholecalciferol zzzExtra Depth Orthopedic Shoes (1 Pair) with Customized Heat Molded Multidensity Innersoles (3 Pair) . . . . Dx: IDDM/Polyneuropathy (E10.42), Hammertoe Foot Deformity (M20.41,M20.42), Preulcerative Skin Lesion(s) (L85.1)Extra Depth Orthopedic Shoes (1 Pair) with Customized Heat Molded Multidensity Innersoles (3 Pair) as directed Dx: NIDDM/Polyneuropathy (E11.42), Hammertoe Foot Deformity (M20.41,M20.42), Preulcerative Skin Lesion(s) (L85.1Extra Depth Orthopedic Shoes (1 Pair) with Customized Heat Molded Multidensity Innersoles (3 Pair) as directed Dx: NIDDM/Polyneuropathy (E11.42), Hammertoe Foot Deformity (M20.41,M20.42), Preulcerative Skin Lesion(s) (L85.1Extra Depth Orthopedic Shoes (1 Pair) with Customized Heat Molded Multidensity Innersoles (3 Pair) as directed Dx: NIDDM/Polyneuropathy (E11.42), Hammertoe Foot Deformity (M20.41,M20.42), Preulcerative Skin Lesion(s) (L85.1Probiotic Zenpep 13891 UNIT Capsule Delayed Release Particles as directed Orally ALPRAZolam 0.5 MG Tablet 1 tablet Orally Three times a dayAmoxicillin oxyCODONE HCl 5 MG Tablet 1 tablet Orally every 6 hrsFish Oil 1000 MG Capsule 1 capsule with a meal Orally Once a dayCitalopram Hydrobromide 40 MG Tablet 1 tablet Orally Once a dayDiltiazem HCl Coated Beads 180 MG Capsule Extended Release 24 Hour 1 capsule Orally Once a dayPravastatin Sodium 20 MG Tablet 1 tablet Orally Once a dayLisinopril 2.5 MG Tablet 1 tablet Orally Once a dayrifAMPin Vancomycin Medication List reviewed and reconciled with the patientNot- Taking/PRN Gabapentin Not-Taking/PRN Myrbetriq 50 MG Tablet Extended Release 24 Hour 1 tablet Orally Once a dayNot-Taking/PRN Aspirin 81 MG Tablet Chewable 1 tablet Orally Once a dayNot-Taking/PRN Clopidogrel Bisulfate 75 MG Tablet 1 tablet Orally Once a dayNot-Taking/PRN Lisinopril 2.5 MG Tablet Orally Not-Taking/PRN Doxycycline Not-Taking/PRN Cholecalciferol Not-Taking/PRN zzzExtra Depth Orthopedic Shoes (1 Pair) with Customized Heat Molded Multidensity Innersoles (3 Pair) . . . . Dx: IDDM/Polyneuropathy (E10.42), Hammertoe Foot Deformity (M20.41,M20.42), Preulcerative Skin Lesion(s) (L85.1)Not-Taking/PRN Extra Depth Orthopedic Shoes (1 Pair) with Customized Heat Molded Multidensity Innersoles (3 Pair) as directed Dx: NIDDM/Polyneuropathy (E11.42), Hammertoe Foot Deformity (M20.41,M20.42), Preulcerative Skin Lesion(s) (L85.1Not-Taking/PRN Extra Depth Orthopedic Shoes (1 Pair) with Customized Heat Molded Multidensity Innersoles (3 Pair) as directed Dx: NIDDM/Polyneuropathy (E11.42), Hammertoe Foot Deformity (M20.41,M20.42), Preulcerative Skin Lesion(s) (L85.1Not-Taking/PRN Extra Depth Orthopedic Shoes (1 Pair) with Customized Heat Molded Multidensity Innersoles (3 Pair) as directed Dx: NIDDM/Polyneuropathy (E11.42), Hammertoe Foot Deformity (M20.41,M20.42), Preulcerative Skin Lesion(s) (L85.1Not-Taking/PRN Probiotic Not-Taking/PRN Zenpep 48584 UNIT Capsule Delayed Release Particles as directed Orally Not-Taking/PRN ALPRAZolam 0.5 MG Tablet 1 tablet Orally Three times a dayNot-Taking/PRN Amoxicillin Not-Taking/PRN oxyCODONE HCl 5 MG Tablet 1 tablet Orally every 6 hrsNot- Taking/PRN Fish Oil 1000 MG Capsule 1 capsule with a meal Orally Once a dayNot-Taking/PRN Citalopram Hydrobromide 40 MG Tablet 1 tablet Orally Once a dayNot-Taking/PRN Diltiazem HCl Coated Beads 180 MG Capsule Extended Release 24 Hour 1 capsule Orally Once a dayNot-Taking/PRN Pravastatin Sodium 20 MG Tablet 1 tablet Orally Once a dayNot-Taking/PRN Lisinopril 2.5 MG Tablet 1 tablet Orally Once a dayNot- Taking/PRN rifAMPin Not-Taking/PRN Vancomycin Medication List reviewed and reconciled with the patient * Allergies:?Guaifenesin: peel ing - Allergyyes[Allergies Verified] Objective: * Vitals:?Ht: 5 ft 7 in, Wt:15 6, BMI: 24.43, Shoe size:9.5, BS:198 p.m. 98 a.m., Wt-k.76 kg. * Examination: ???Ophthalmology Referral: ?DIABETES EYE EXAM?Procedure Performed:?Yes 2023?Nails: ?NAILS are:?Elongated, overgrown, dystrophic, , 1-5 B/L ,.?Dermatologic: ?SKIN FINDINGS:? Skin exam reveals Keratotic lesion(s) located at, SUB MTH (s), 1, B/L? ,.?Neurological: ?SENSORY:?exam demonstrates. reduced vibration lower extremity, reduced light touch sensation, 5.07 monofilament test performed at plantar aspects of 5 varied sites per foot shows sensation, absent, , B/L, reduced sharp/dull pin prick discrimination , Pt relates cont. anesthesia, burning, Forefoot,?.?Vascular: ?DP PULSES(B):?1/4, B/L ,.?PT PULSES(B):?2/4, B/L ,.? Assessment: * Assessment: 1.?Type 2 diabetes mellitus with diabetic polyneuropathy - E11.42? Plan: * Treatment: * Procedures:?Keratoma Treatment:?Parring or Cutting of Benign Hyperkeratotic Lesion(s)?81287 (2-4 Lesions) - The Benign hyperkeratotic lesions, as described above were pared, and/or cut utilizing a sterile #15 blade, tissue nippers, and/or dremel.?Nail Reduction:?Nail Reduction?Trimming of dystrophic nails performed to reduce/remove overall nail length and girth, by manual and electrical means with use of a nail nipper and/or dremel, to more viable healthy nail plate or bed tissue 6-10 (G0127).? * Procedure Codes:?69911 TRIM SKIN LESIONS, 2 TO 4, Modifiers: XS G0127 TRIMMING DYSTROPHIC NAILS ANY #, Modifiers: XS * Follow Up:?prn * Images: * Sign off status: Completed true * Provider:Russ Sparrow DPM Date:?2023 Generated for David browning/Alley/eTransmitting on:?06/10/2024 11:18 AM EDT History and Physical Notes * [...] at, SUB MTH (s), 1, B/L , Ophthalmology Referral DIABETES EYE EXAM Procedu re Performed:: Yes 2023 Vascular DP PULSES (B): 1/4, B/L , PT PULSES (B): 2/4, B/L , Nails NAILS are: Elongated, overgrown, dystro phic, , 1-5 B/L ,
--- OUTSIDE RECORDS SUMMARY | 2024-06-10 11:18 | XMS_ITS | Encounter Summary ---
Author Name [facility] Organization [facility] Address [address] [place] [id number] Care Team Providers Care Manager Dairy Name Role Phone BONITA HELMS Primary Care Provider UnavailMOHAMUD Banuelos Unavailable Unavailable BELA RODNEY Unavailable Unavailable APPLE, LON Unavailable Unavailable DOMONIQUE, PATRICIA Unavailable Unavailable TELMA, MARY Unavailable UnavailPEBBLES Marx Unavailable Unavailable CELE EVLÁZQUEZ Unavailable Unavailable Insurance Providers: All historical and [...] Relationship to Policy Mueller [place] E Mar 12, 2016 [id number] PRIYANK TURPIN SEPH PATIENT MEDICARE (WNR) MEDICARE (M) PART B May 10, 2004 PART B [id number] PRIYANK TURPIN SEPH PATIENT MEDICARE (WNR) MEDICARE (M) PART B May 10, 2004 PART B [id number] [phone] PRIYANK TURPIN SEPH PATIENT MEDICARE (WNR) MEDICARE (M) PART A July 10, 1997 PART A [id number] PRIYANK TURPIN PATIENT MEDICARE (WNR) MEDICARE (M) PART A July 10, 1997 PART A [id number] [facility] PRIYANK TURPIN PATIENT Selected Encounter This section includes the information on record at [place] for the Encounter. Date/Time Encounter Type Encounter Description Reason Provider Source May 06, 2024 10:30 AM HEARING AID REPAIR/MODIFYING AUDIOLOGY ICD-10-CM Z46.1 Encounter for fitting and adjustment of hearing aid XAVIER CARMEN Luiza Encounter Template Text not used by [place] Assessments - Encounter Diagnoses This section includes the primary and secondary diagnoses documented for the Encounter. Date/Time Primary/Secondary Diagnosis Diagnosis Name Provider Source May 06, 2024 11:33 AM PRIMARY Encounter for fitting and adjustment of hearing aid [facility] May 06, 2024 11:33 AM SECONDARY Sensorineural hearing loss, bilateral [facility] [place] [facility] Plan of Treatment: Future Appointments (+ 6 months) and Future Tests (+/- 45 days) The Plan of Treatment section includes future care activities for the patient from all [place] treatmentcilities. This section includes future appointments and future orders which are active, pending or scheduled. Future Appointments This section includes appointments that were scheduled to occur 6 months from the date of the Encounter, up to a maximum of 20 appointments. The data comes from all [place] treatment facilities. Appointment Date/Time Appointment Type Appointme nt Facility Name May 22, 2024 11:30 AM [facility] July 23, 2024 11:00 AM [facility]AT[facility] - MEDICINE [facility] [place] [facility] August 08, 2024 11:00 AM AMBULATORY - RE[facility]AB [facility] Sep 03, 2024 12:30 PM [facility] [place] [facility] Active, Pending, and Scheduled Orders This section includes a listing of several types of active, pending, and scheduled orders, including clinic medications orders, diagnostic test orders, procedure orders and consult orders; where the start date of the order is 45 days before the date of the Encounter or 45 days after the date of theEncounter. The data comes from all [place] treatment facilities. Test Date/Time Test Type Test Details Facility Name Jun 03, 2024 10:59 AM Consult Order COMMUNITY CARE-ENDOCRINE Cons Supervisor [facility] [place] [facility] [place] [facility] Jun 09, 2024 03:06 PM Consult Order CRANIAL EL ECTROTHERAPY STIMULATION/SOPC OUTPT Cons Supervisor [facility] [place] [facility] [place] [facility] Social History: Smoking Status (Most [...] Date/Time Current Smoking Status Comment Facil ity Mar 24, 2022 10:01 AM VA-TOBACCO NEVER USED [place] [facility] Advance Directives: All historical and current Section Date Range: From patient's date of to the date document was created. This section includes ALL of a patient's completed or amended [place] Advance and Rescinded Directives. The entries below indicate that a directive exists for the patient, but an actual copy is not included with this document. The data comes from all [place] facilities. Date Advance Directives Provider Source Jun 28, 2009 ADVANCE DIRECTIVE MANUELITO MORELOS Encounter Notes: All associated encounter notes This section contains the clinical notes associated to the Encounter. Date/Time Encounter Note(s) Provider Source May 06, 2024 07:35 AM AUDIOLOGY NOTE: LOCAL TITLE: AUDIOLOGY HEALTH ENGINEER EXHAUSTER STANDARD TITLE: AUDIOLOGY NOTE DATE OF NOTE: MAY 06, 2024@07:35 ENTRY DATE: MAY 06, 2024@07:35:19 AUTHOR: CELE CAPPS COSIGNER: XAVIER CARMEN URGENCY: STATUS: COMPLETED AUDIOLOGY HEALTH ENGINEER EXHAUSTER Has ADDENDA May 06, 2024 History/Background: Parkston was seen for a hearing aid follow up, accompanied by his . The [place] presented today requesting modifications to his new earmolds. The reported the fit is too tight. The [place] brought all 4 of his new earmolds with him today. The also noted that he is getting feedback on the right side when on the couch. Hearing aids: [employer] AI POWER+ BTEs Serial Numbers: [id number] Battery size: 13 Date Issued: 04/17/2022 Hearing aid check: Both hearing aids were cleaned and checked. Modified the left and right earmold by grinding down all around the canal and helix lock. The fit appeared better. Replaced tubes and tonehooks. The will try the earmolds with the modifications and contact the clinic with any discomfort. With the supervision of the overseeing Burrer Hand, both hearing aids were connected to [employer], the feedback canceller was run. Plan: RTC for routine hearing aid maintenance in 3 months on [facility]. The second set of earmolds were kept in the clinic to have modifications made, as we ran out of time to do all 4 during the appointment. The earmolds will be given to the at his next appointment. This set will be attached to his back up hearing aids. /devon/ CELE CAPPS Audiology Health Circle Saw Operator Signed: 05/06/2024 13:45 /devon/ XAVIER Barkley CCC-A CHIEF, AUDIOLOGY/MANAGER ADMINISTRATIVE SERVICES Cosigned: 05/06/2024 13:55 05/30/2024 ADDENDUM STATUS: COMPLETED Met with Parkston today in his home, he reports he does not like his ear molds, they are bumpy and rough . He has an appt with you in July. Just VANNESSA. /devon/ Paola Hudson RN [facility] cell tender Signed: 05/30/2024 10:24 [facility]PS [facility]
--- OUTSIDE RECORDS SUMMARY | 2024-06-10 11:18 | XMS_ITS | Encounter Summary ---
Author Organization [facility] Address [address] [place] [address] Phone Care Team Providers Care Cotton Bag Clipper Name Role Phone William Mcghee DO Primary Care Provider [phone] Encounter Details Date Type Department Care Team (Late st Contact Info) Description 12/11/2019 Procedure Pass [facility] Periop [address] [place] [id number] Social History Tobacco Use Types Packs/Day Years [...] documented as of this encounter Care Teams Cotton Bag Clipper Relationship Specialty Start Date End Date William Mcghee DO [address] [place] [address] [address] [place] [address] PCP - General Internal Medicine 06/28/17 documented as of this encounter Additional Source Comments The information contained in this document represents components of the legal health record. It is not the complete legal health record.[facility]
--- OUTSIDE RECORDS SUMMARY | 2024-06-10 11:18 | XMS_ITS ---
Author Name [facility] [place] Address [address] [place] [address] Care Team Providers Care Manager Of Investigations Name Role Phone BONITA HELMS Primary Care [...] Name Patient's Relationship to Policy Mueller [facility] MEDICARE SUPPLEMEN MEGHANA MEDEX ANDRY E Mar 12, 2016 [id number] PRIYANK TURPIN SEPH PATIENT MEDICARE (WNR) MEDICARE (M) PART B May 10, 2004 PART B [id number] PRIYANK TURPIN SEPH PATIENT MEDICARE (WNR) MEDICARE (M) PART B May 10, 2004 PART B [id number] [phone] PRIYANK TURPIN SEPH PATIENT MEDICARE (WNR) MEDICARE (M) PART A July 10, 1997 PART A [id number] PRIYANK TURPIN PATIENT MEDICARE (WNR) MEDICARE (M) PART A July 10, 1997 PART A [id number] PRIYANK TURPIN PATIENT Selected Encounter This section includes the information on record at [place] for the Encounter. 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 Date/Time Primary/Secondary Diagnosis Diagnosis Name Provider Source Jun 09, 2024 03:50 PM PRIMARY Other chronic pain Kenn HOLLIS YVIDHYAWYLexii [facility] Jun 09, 2024 03:50 PM SECONDARY Anxiety disorder, unspecified Kenn HOLLIS YNTWYA [place] [facility] [facility] Jun 09, 2024 03:50 PM SECONDARY Unilateral primary osteoarthritis, left knee Kenn HOLLIS YNTWYA [facility] Plan of Treatment: Future Appointments (+ 6 months) and Future Tests (+/- 45 days) The Plan of Treatment section includes future care activities for the patient from all [place] treatmentfacilities. This section includes future appointments and [...] 23, 2024 11:00 AM AMBULATORY - MEDICINE [facility] August 08, 2024 11:00 AM [facility] Sep 03, 2024 12:30 PM AMBULATORY - MEDICINE [facility] NTRL [facility] Active, Pending, and Scheduled Orders This section includes a listing of several types of active, pending, and scheduled orders, including clinic medications orders, diagnostic test orders, procedure orders and consult orders; where the start date of the order is 45 days before the date of the Encounter or 45 days after the date of theEncounter. The data comes from all [place] treatment facilities. Test Date/Time Test Type Test Details Facility Name Jun 03, 2024 10:59 AM Consult Order COMMUNITY CARE-ENDOCRINE Cons Cardiology Nurse Practitioner's Choice [facility] Jun 09, 2024 03:06 PM Consult Order CRANIAL ELECTROTHERAPY STIMULATION/SOPC OUTPT Cons Cardiology Nurse Practitioner's Choice [facility] Jul 04, 2024 12:00 AM Laboratory - Chemistry Order ALCOHOL, ETHYL URINE PANEL URINE (DRUG) SP [facility] Jul 04, 2024 12:00 AM Laboratory - Chemistry Order AMPHETAMINES SCREEN PANEL URINE (DRUG) [facility] Jul 04, 2024 12:00 AM Laboratory - Chemistry Order FENTANYL SCREEN PANEL URINE (DRUG) [facility] Jul 04, 2024 12:00 AM Laboratory - Chemistry Order BENZODIAZEPINES SCREEN PANEL URINE (DRUG) [facility] Jul 04, 2024 12:00 AM Laboratory - Chemistry Order BUPRENORPHINE SCREEN PANEL URINE (DRUG) [facility] Jul 04, 2024 12:00 AM Laboratory - Chemistry Order CANNABINOIDS SCREEN PANEL URINE (DRUG) [facility] Jul 04, 2024 12:00 AM Laboratory - Chemistry Order OPIATES SCREEN PANEL URINE (DRUG) [facility] Jul 04, 2024 12:00 AM Laboratory - Chemistry Order METHADONE SCREEN URINE SP [facility] Jul 04, 2024 12:00 AM Laboratory - Chemistry Order COCAINE SCREEN PANEL URINE (DRUG) [facility] Jul 04, 2024 12:00 AM Laboratory - Chemistry Order OXYCODONE SCREEN PANEL URINE (DRUG) [facility] Social History: Smoking Status (Most [...] 24, 2022 10:01 AM VA-TOBACCO NEVER USED [place] CN[facility] [facility] Advance Directives: All historical and current [...] Encounter. Date/Time Encounter Note(s) Provider Source Jun 09, 2024 03:50 PM ADDENDUM: LOCAL TITLE: Addendum STANDARD TITLE: ADDENDUM DATE OF NOTE: JUN 09, 2024@15:50:58 ENTRY DATE: JUN 09, 2024@15:50:59 AUTHOR: DILLON HOLLIS COSIGNER: URGENCY: STATUS: COMPLETED #start butrans 5mcg patch q 7 days monitor pain severity and cont w hydorocone 5/325mg 2-3x daily as needed for optimal pain management consider Empowered Relief-patient reports trouble sitting for prolonged periodss #Refer for Alpha stim trial declines need for sleep study-cont to monitor PCP to consider evaluation for LUTS, urinary retention given nocuria 3-4x nightly /es/ MARY HOLLIS RN,MSN,HORSE SHOW MANAGER-C HB NURSE PRACTITIONER Signed: 06/09/2024 15:52 Receipt Acknowledged By: * AWAITING SIGNATURE * BONITA HELMS 06/09/2024 17:06 /es/ Dolores Mancilla SURGICAL APPLIANCES SALESPERSON [facility] LABEL DESIGNER for [place] --- Original Document --- 06/09/24 [facility] FILM OR VIDEOTAPE EDITOR PROGRESS NOTE: [place] was seen for: ( )routine visit (x) problem visit Identified by name, , address and facial recognition: Y VVC Ready: Yes [x] No [ ] Chief complaint:Pt is a 84 seen for follow up of medical problems as noted below. [phone] HPI:84 yo M seen for pain evaluation accompanied by . He has been on hydrocodone w subopimal pain relief. takes zoloft for stress , losses patience at times constant pain to LLE VAS 6/10-10/10 Previously went [place] to b/l shoulders which elevates glucose, does not want to persue cardiology: [facility] cardiology PMH: Active problems - Computerized Problem List is the source for the followin. History of total pancreatectomy 2. Advanced age related macular degeneration 3. Hearing impaired 4. Bladder cancer New Dx 2021; has Private URO; to do Cysto's Every 3 Months Till Mass Subsides Portion of Mass Excised; Is doing Cryotherapy for Portion of Mass that Cannot be Safely Excised Original Cysto Done Due to Noctuia, Frequnecy; Never Hematuria Also, some BPH 5. Full thickness rotator cuff tear RC Tear, R Side 2011; He Elects NOT to Do Surg Severe OA and Prob. RC Tear, L Shldr MAR 03: Declines Surg; Fall in Shower Seen by [facility] MAR 03; Surg Offered; He Declines 6. Cervical radiculopathy Has Seen Both Chiropractor and [facility]; CCS Inj.;s via [facility] 2020 7. Coronary artery disease CABG Years Ago Still Sees Private Cardio as of SEPTEMBER 30; New ECHO Done AUGUST 31 8. Localized, primary osteoarthritis TKR, L Side 2015; did Rehab; MRSA Post- Op; Admitted w/ IV Abx's Few Weeks (now in PO abx); Can't Ext Knee as of MAR 28: Pending Kneading of Scar Tissue Surg Revision (in JAN 26), of Hardware, from Previous TKR, L Side pending More Revisional Hardware JUN 27 Fell Twice 2018; Returning to Ortho; Harware, Femur Intact ??? On Chemo- Prophylaxis for Sepsis Leg Last Saw Ortho AUGUST 29: No Complications Noted s/p L Knee Fusion 9. Trigger finger 10. autophony Inner Ear Pathology [place]; see ENT note dated JAN 23 11. Age Macular Degeneration, Dry (Armd) 12. Disorders of bursae and tendons in shoulder region Surg Repair, RC Tear, R Shldr, DEC 18 (a Chronicity) 13. Retinal defect 14. Refractive error 15. Cataract, Cortical (Senile) 16. Generalized anxiety disorder 17. Pancreatitis (SNOMED CT 97170413) ERCP MAR 19 @ [facility], MAR 19 Neg Pancreatic CA does have some scarring Pancreas; not a drinker 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 and Puncture Gastrum dus to Stent placed for Pancreas MAY 19 follows [facility] MAY 19 - another Endoscopy due JUN 19 now TYPE I Diabetic in 2009 Necrotizing Pancreatitis & Insufficiency DEC 19; private Dr Varela [phone] pending Cholecystectomy MAY 23 at [facility]; has new Biliary Obstruction as of MAY 23 US, ABD APR 29 (outside [place] Surg Absent Gallbladder; Increased Echogenicity, Liver; ? Sclerosing Cholangitis?; Signif Bilary Tree Dilatation US, ABD JUN 28: See Report; Air Biliary Tree? ; No Discrete Mass 18. ENDOSCOPY Endoscopy JAN 16 privately (pt. not sure why) Reflux - Prilosec helps a lot 19. Hematuria +Hematuria is baseline ; Still Sees private URO as of Hematuria and Obstructive Uropathy (never Dx w/ any CA) Last Saw URO JAN 30: Cysto Done New Bladder Lesion Noted; Suspicious for Malignancy; pending Excision approx APR 02 20. Foot drop Foot Drop, R side; Hx L5-S1 Lesion (wears brace on foot) Surg OCT 18 new Arthritis both Feet as of MAR 25; sees private Podiatry 21. Trochanteric Bursitis gets Iontophoresis privately 22. Screening for Malignant Neoplasms of colon colonoscopy done OCT 14 at [facility] NEG CRC - repeat 2009; paper report in paper Health records pending one more colonoscopy in 2014 23. SENSORNEUR HEAR LOSS NOS subjective tinnitus 24. Gastroesophageal Reflux Disorder no hx of ulcer, gi bleed or scope. 25. Hypertension (SNOMED CT 60331988) +Renal Cysts Bilat (US OCT 16); refer URO to R/O RCC Post-Op Dx of Left Renal Mass was Neg CA (Surg FEB 15, [facility] Proteinuria; saw private Nephro APR 22, Dr Souza [phone] 26. Depressive Disorder NOS 27. Diabetes mellitus (SNOMED CT 25614392) no DR per retinal exam on AUGUST 15 secondary Proteinuria ; Stable Renal Function as of APR 22 on Percutaneous Insulin Pump as of SEPTEMBER 20. HYPERLIPIDEMIA NEC/NOS Allergies: CONTRAST MEDIA, OTHER, RADIOLOGICAL/CONTRAST MEDIA GUAFENESIN DEXTROMETHORPHAN SYRUP The following VA and Non-VA meds were reconciled with patient: Active and Recently Outpatient Medications (excluding Supplies): Active Outpatient Medications Status 1) ACCU-CHEK GUIDE (GLUCOSE) TEST STRIP USE 1 STRIP TO TEST ACTIVE BLOOD SUGARS FOUR TIMES A DAY 2) ACCU-CHEK GUIDE ME (GLUCOSE) METER USE METER TO TEST BLOOD ACTIVE SUGARS FOUR TIMES A DAY 3) AMLODIPINE BESYLATE 10MG TAB TAKE ONE TABLET BY MOUTH ONCE ACTIVE DAILY FOR BLOOD PRESSURE/HEART, DO NOT TAKE WITH GRAPEFRUIT JUICE REPLACE LOSARTAN 4) ATORVASTATIN CALCIUM 20MG TAB TAKE ONE TABLET BY MOUTH AT ACTIVE BEDTIME FOR CHOLESTEROL 5) CALCIUM 500MG/VITAMIN D 200 UNT TAB TAKE 1 TABLET BY MOUTH ACTIVE TWICE DAILY Indication: FOR CALCIUM SUPPLEMENT 6) CARBOXYMETHYLCELLULOSE NA 0.5% OPH SOLN INSTILL 1 DROP INTO ACTIVE EACH EYE FOUR TIMES DAILY NEEDED Indication: FOR DRY EYE 7) CREON 24,000UNIT EC CAP TAKE 3 CAPSULES BY MOUTH THREE TIMES ACTIVE A DAY 8) GLUCOSE 4GM CHEW TAB CHEW FOUR TABLETS BY MOUTH NEEDED ACTIVE (S) Indication: FOR LOW BLOOD SUGAR 9) HYDROCODONE 5MG/ACETAMINOPHEN 325MG TAB TAKE 1 TABLET BY ACTIVE MOUTH THREE TIMES DAILY NEEDED Indication: FOR PAIN 10) INSULIN,ASPART,HUMAN 100 UNIT/ML INJ INJECT INSULIN ACTIVE SUBCUTANEOUSLY THREE TIMES DAILY NEEDED ACCORDING TO SLIDING SCALE 11) METOPROLOL TARTRATE 25MG TAB TAKE ONE-HALF TABLET BY MOUTH ACTIVE TWICE DAILY FOR BLOOD PRESSURE/HEART Indication: FOR MYOCARDIAL REINFARCTION PREVENTION 12) MULTIVIT/OPHTH AREDS2/LUTE/ZEAX CAP/TAB TAKE 1 CAPSULE BY ACTIVE MOUTH TWICE DAILY IN THE MORNING AND EVENING, WITH FOOD 13) SERTRALINE HCL 100MG TAB TAKE ONE TABLET BY MOUTH TWICE ACTIVE DAILY 14) TAMSULOSIN HCL 0.4MG CAP TAKE ONE CAPSULE BY MOUTH ONCE ACTIVE DAILY Indication: FOR ENLARGED PROSTATE 15) ZOLPIDEM TARTRATE 5MG TAB TAKE ONE TABLET BY MOUTH AT ACTIVE BEDTIME NEEDED Indication: FOR SLEEP Active Non-VA Medications Status 1) Non-VA NALOXONE HCL 4MG/SPRAY SOLN NASAL SPRAY 1 SPRAY ONE ACTIVE NOSTRIL ONE TIME NEEDED Indication: FOR OPIOID OVERDOSE 2) Non-VA OTHER CAP/TAB FISH OIL, 1000MG EVERY DAY ACTIVE 17 Total Medications Pain related meds: Avoid NSAIDs in setting of CKD Been on hydrocodone 5/325mg TID since 2021 MH: Zoloft since 2018 was 100mg now 200mg Zolpidem 5-10mg qhs since 2018 Recent Falls Y( ) N(x) PSXHX: Left TKR c/o septic joint requiring hardware removal and medullary christofer placement. 2018 Lumbar spine procedure X3, 1973, 1980, 1993 left carpal tunnel release 2019 right carpal tunnel release bilat rotator cuff repairs CABGx3 bilat inguinal hernia repair, 2014 pancreatic debridement, biliary bypass bladder cancer 03/24/21 Dr. 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 Sleep start 9pm, sleep 10-1030pm nocturia x 3-4 times trouble going back to sleep up at 9am +snoring, nap in the afternoon VITAL SIGNS: B/P: 138/62 (05/09/2024 14:00) Pulse: 54 (05/09/2024 14:00) Temperature: 97.6 F [36.4 C] (02/29/2024 11:30) Weight: 155.4 lb [70.49 kg] (10/25/2023 13:00) Height: 67 in [170.2 cm] (11/06/2022 14:48) BMI: BMI: 24.4 Pain: 3 (05/09/2024 14:00) (0-10 scale) pt is alert and oriented x4. NAD. well kempt, mood appropriate, good eye contact HEENT: normal NECK: supple CVS: regular rate and rhythm normal S1S2 no S3 or Murmur Lungs: no use of accessory muscles EXT: no edema, LLE straight, healed incision to left knee, localized tenderness to left medical knee w no obvious effusion Get up and go normal w limp and cane Exam Date/Time 01/18/2022 10:28 Procedure Name KNEE 3 VIEWS (LEFT) Reason for Study hardware in palce Clinical History may need to see ortho again Impression Old left knee fusion with internal fixation intramedullary christofer extending from proximal femur to distal tibia. Intact bones and hardware. Mild degenerative changes of the single view right knee. Report Left knee: Left knee fusion hardware in place. AP and lateral views of the left knee and AP weightbearing views of both knees without previous reveal old left knee fusion with intramedullary christofer that extends from the proximal femur on the edge of study down to the distal tibia (well seen on the accompanying #207 left tibia/fibula study). Bone mineralization is good for age and is no fracture of the bones or the hardware. Arterial calcification, pattern typical in diabetics, is present. AP weightbearing view that includes the right knee show surgical clips in the soft tissues on the medial side of the knee joint area. There is preservation of joint space height in medial and lateral compartments and there is chondrocalcinosis of the medial and lateral compartments of the right knee without erosions. Exam Date/Time 01/18/2022 10:29 Procedure Name TIBIA & FIBULA 2 VIEWS(LEFT) Reason for Study hardware in palce Clinical History may need to see ortho again Impression Intact osseous structures and hardware in this patient who has a left knee fusion with intramedullary christofer traversing from proximal femur to distal tibia. Report Left tibia/fibula: Hardware present. AP and lateral views without previous reveal intramedullary christofer in the left tibia. Accompanying views of the bilateral knees show that this christofer crosses the former left knee joint and extends up into the proximal femur. Transverse screw is located in the distal christofer crossing the left tibia from cortex to cortex. No evidence of loosening. No fracture of bone or hardware is identified. Arterial calcification is present; pattern can be seen in diabetics. Future Clinic Visits 08/08/2024 11:00 SPR AUDIO MAINT 09/03/2024 12:30 [facility] OPTOMETRY 1 PM A/P: Active problems - Computerized Problem List is the source for the followin yo M w chronic pain to LLE post septic infection w removal of kneecap christofer placement w suboptimal pain relief w hydrodocone. #start butrans 5mcg patch q 7 days monitor pain severity and cont w hydorocone 5/325mg 2-3x daily avoid NSAIDs in setting of CRI Failed many topical pain meds, lidocaine, volteran burning. consider Empowered Relief-patient reports trouble sitting for prolonged periodss -Generalized anxiety disorder: -sleep disturbance: cont zoloft 200mg daily consider trial of cymbalta #Refer for Alpha stim trial declines need for sleep study-cont to monitor can consider CBT-I f/u tele 06/23 Review of medical records: 15 min Time spent w patient including shared decision makin min Post visit documentation: 10 min No barriers; Patient understands and agrees to current treatment plan. Outpt. Medication Reconciliation: Outpatient Medication Reconciliation No Discrepancies Found - Med Rec Completed. The patient's medication list/medication history was compared with CPRS and reviewed with the patient/caregiver and reconciled. The patient/caregiver was instructed to update this list, discard old lists, and take this list to their next appointment, whether with a VA or non-VA provider. Any changes in medications and any medications discontinued are documented in this note. /devon/ MARY HOLLIS RN,MSN,HORSE SHOW MANAGER-C HB NURSE PRACTITIONER Signed: 06/09/2024 15:50 REESE HOLLIS [place] [facility] Jun 09, 2024 11:15 AM [facility] NOTE: LOCAL TITLE: [facility] FILM OR VIDEOTAPE EDITOR PROGRESS NOTE STANDARD TITLE: [facility] NOTE DATE OF NOTE: JUN 09, 2024@11:15 ENTRY DATE: JUN 09, 2024@11:15:29 AUTHOR: DILLON HOLLIS COSIGNER: URGENCY: STATUS: COMPLETED SUBJECT: pain evaluation [facility] FILM OR VIDEOTAPE EDITOR PROGRESS NOTE Has ADDENDA was seen for: ( )routine visit (x) problem visit Identified by name, , address and facial recognition: Y VVC Ready: Yes [x] No [ ] Chief complaint:Pt is a 84 seen for follow up of medical problems as noted below. [phone] HPI:84 yo M seen for pain evaluation accompanied by . He has been on hydrocodone w subopimal pain relief. takes zoloft for stress , losses patience at times constant pain to LLE VAS 6/10-10/10 Previously went to [place] ortho for injections to b/l shoulders which elevates glucose, does not want to persue cardiology: [facility] cardiology PMH: Active problems - Computerized Problem List is the source for the followin. History of total pancreatectomy 2. Advanced age related macular degeneration 3. Hearing impaired 4. Bladder cancer New Dx 2021; has Private URO; to do Cysto's Every 3 Months Till Mass Subsides Portion of Mass Excised; Is doing Cryotherapy for Portion of Mass that Cannot be Safely Excised Original Cysto Done Due to Noctuia, Frequnecy; Never Hematuria Also, some BPH 5. Full thickness rotator cuff tear RC Tear, R Side 2011; He Elects NOT to Do Surg Severe OA and Prob. RC Tear, L Shldr MAR 03: Declines Surg; Fall in Shower Seen by [facility] MAR 03; Surg Offered; He Declines 6. Cervical radiculopathy Has Seen Both Chiropractor and [facility]; CCS Inj.;s via [facility] 2020 7. Coronary artery disease CABG Years Ago Still Sees Private Cardio as of SEPTEMBER 30; New ECHO Done AUGUST 31 8. Localized, primary osteoarthritis TKR, L Side 2015; did Rehab; MRSA Post- Op; Admitted w/ IV Abx's Few Weeks (now in PO abx); Can't Ext Knee as of MAR 28: Pending Kneading of Scar Tissue Surg Revision (in JAN 26), of Hardware, from Previous TKR, L Side pending More Revisional Hardware JUN 27 Fell Twice 2018; Returning to Ortho; Harware, Femur Intact ??? On Chemo- Prophylaxis for Sepsis Leg Last Saw Ortho AUGUST 29: No Complications Noted s/p L Knee Fusion 9. Trigger finger 10. autophony Inner Ear Pathology [place]; see ENT note dated JAN 23 11. Age Macular Degeneration, Dry (Armd) 12. Disorders of bursae and tendons in shoulder region Surg Repair, RC Tear, R Shldr, DEC 18 (a Chronicity) 13. Retinal defect 14. Refractive error 15. Cataract, Cortical (Senile) 16. Generalized anxiety disorder 17. 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 Sclerosing Cholangitis?; Signif Bilary Tree Dilatation US, ABD JUN 28: See Report; Air Biliary Tree? ; No Discrete Mass 18. ENDOSCOPY Endoscopy JAN 16 privately (pt. not sure why) Reflux - Prilosec helps a lot 19. Hematuria +Hematuria is baseline ; Still Sees private URO as of Hematuria and Obstructive Uropathy (never Dx w/ any CA) Last Saw URO JAN 30: Cysto Done New Bladder Lesion Noted; Suspicious for Malignancy; pending Excision approx APR 02. Foot drop Foot Drop, R side; Hx L5-S1 Lesion (wears brace on foot) Surg OCT 18 new Arthritis both Feet as of MAR 25; sees private Podiatry 21. Trochanteric Bursitis gets Iontophoresis privately 22. Screening for Malignant Neoplasms of colon colonoscopy done OCT 14 at [facility] NEG CRC - repeat 2009; paper report in paper Health records pending one more colonoscopy in 2014 23. SENSORNEUR HEAR LOSS NOS subjective tinnitus 24. Gastroesophageal Reflux Disorder no hx of ulcer, gi bleed or scope. 25. Hypertension (SNOMED CT 68359419) +Renal Cysts Bilat (US OCT 16); refer URO to R/O RCC Post-Op Dx of Left Renal Mass was Neg [place] (Surg FEB 15, [facility] Proteinuria; saw private Nephro APR 22, Dr Souza [phone] 26. Depressive Disorder NOS 27. Diabetes mellitus (SNOMED CT 12802589) no DR per retinal exam on AUGUST 15 secondary Proteinuria ; Stable Renal Function as of APR 22 on Percutaneous Insulin Pump as of SEPTEMBER 20. HYPERLIPIDEMIA NEC/NOS Allergies: CONTRAST MEDIA, OTHER, RADIOLOGICAL/CONTRAST MEDIA GUAFENESIN DEXTROMETHORPHAN SYRUP The following VA and Non-VA meds were reconciled with patient: Active and Recently Outpatient Medications (excluding Supplies): Active Outpatient Medications Status 1) ACCU-CHEK GUIDE (GLUCOSE) TEST STRIP USE 1 STRIP TO TEST ACTIVE BLOOD SUGARS FOUR TIMES A DAY 2) ACCU-CHEK GUIDE ME (GLUCOSE) METER USE METER TO TEST BLOOD ACTIVE SUGARS FOUR TIMES A DAY 3) AMLODIPINE BESYLATE 10MG TAB TAKE ONE TABLET BY MOUTH ONCE ACTIVE DAILY FOR BLOOD PRESSURE/HEART, DO NOT TAKE WITH GRAPEFRUIT JUICE REPLACE LOSARTAN 4) ATORVASTATIN CALCIUM 20MG TAB TAKE ONE TABLET BY MOUTH AT ACTIVE BEDTIME FOR CHOLESTEROL 5) CALCIUM 500MG/VITAMIN D 200 UNT TAB TAKE 1 TABLET BY MOUTH ACTIVE TWICE DAILY Indication: FOR CALCIUM SUPPLEMENT 6) CARBOXYMETHYLCELLULOSE NA 0.5% OPH SOLN INSTILL 1 DROP INTO ACTIVE EACH EYE FOUR TIMES DAILY NEEDED Indication: FOR DRY EYE 7) CREON 24,000UNIT EC CAP TAKE 3 CAPSULES BY MOUTH THREE TIMES ACTIVE A DAY 8) GLUCOSE 4GM CHEW TAB CHEW FOUR TABLETS BY MOUTH NEEDED ACTIVE (S) Indication: FOR LOW BLOOD SUGAR 9) HYDROCODONE 5MG/ACETAMINOPHEN 325MG TAB TAKE 1 TABLET BY ACTIVE MOUTH THREE TIMES DAILY NEEDED Indication: FOR PAIN 10) INSULIN,ASPART,HUMAN 100 UNIT/ML INJ INJECT INSULIN ACTIVE SUBCUTANEOUSLY THREE TIMES DAILY NEEDED ACCORDING TO SLIDING SCALE 11) METOPROLOL TARTRATE 25MG TAB TAKE ONE-HALF TABLET BY MOUTH ACTIVE TWICE DAILY FOR BLOOD PRESSURE/HEART Indication: FOR MYOCARDIAL REINFARCTION PREVENTION 12) MULTIVIT/OPHTH AREDS2/LUTE/ZEAX CAP/TAB TAKE 1 CAPSULE BY ACTIVE MOUTH TWICE DAILY IN THE MORNING AND EVENING, WITH FOOD 13) SERTRALINE HCL 100MG TAB TAKE ONE TABLET BY MOUTH TWICE ACTIVE DAILY 14) TAMSULOSIN HCL 0.4MG CAP TAKE ONE CAPSULE BY MOUTH ONCE ACTIVE DAILY Indication: FOR ENLARGED PROSTATE 15) ZOLPIDEM TARTRATE 5MG TAB TAKE ONE TABLET BY MOUTH AT ACTIVE BEDTIME NEEDED Indication: FOR SLEEP Active Non-VA Medications Status 1) Non-VA NALOXONE HCL 4MG/SPRAY SOLN NASAL SPRAY 1 SPRAY ONE ACTIVE NOSTRIL ONE TIME NEEDED Indication: FOR OPIOID OVERDOSE 2) Non-VA OTHER CAP/TAB FISH OIL, 1000MG EVERY DAY ACTIVE 17 Total Medications Pain related meds: Avoid NSAIDs in setting of CKD Been on hydrocodone 5/325mg TID since 2021 MH: Zoloft since 2018 was 100mg now 200mg Zolpidem 5-10mg qhs since 2018 Recent Falls Y( ) N(x) PSXHX: Left TKR c/o septic joint requiring hardware removal and medullary christofer placement. 2018 Lumbar spine procedure X3, 1973, 1980, 1994 left carpal tunnel release 2019 right carpal tunnel release bilat rotator cuff repairs CABGx3 bilat inguinal hernia repair, 2014 pancreatic debridement, biliary bypass bladder cancer 03/24/21 Dr. 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 Sleep start 9pm, sleep 10-1030pm nocturia x 3-4 times trouble going back to sleep up at 9am +snoring, nap in the afternoon VITAL SIGNS: B/P: 138/62 (05/09/2024 14:00) Pulse: 54 (05/09/2024 14:00) Temperature: 97.6 F [36.4 C] (02/29/2024 11:30) Weight: 155.4 lb [70.49 kg] (10/25/2023 13:00) Height: 67 in [170.2 cm] (11/06/2022 14:48) BMI: BMI: 24.4 Pain: 3 (05/09/2024 14:00) (0-10 scale) pt is alert and oriented x4. NAD. well kempt, mood appropriate, good eye contact HEENT: normal NECK: supple CVS: regular rate and rhythm normal S1S2 no S3 or Murmur Lungs: no use of accessory muscles EXT: no edema, LLE straight, healed incision to left knee, localized tenderness to left medical knee w no obvious effusion Get up and go normal w limp and cane Exam Date/Time 01/18/2022 10:28 Procedure Name KNEE 3 VIEWS (LEFT) Reason for Study hardware in palce Clinical History may need to see ortho again Impression Old left knee fusion with internal fixation intramedullary christofer extending from proximal femur to distal tibia. Intact bones and hardware. Mild degenerative changes of the single view right knee. Report Left knee: Left knee fusion hardware in place. AP and lateral views of the left knee and AP weightbearing views of both knees without previous reveal old left knee fusion with intramedullary christofer that extends from the proximal femur on the edge of study down to the distal tibia (well seen on the accompanying #207 left tibia/fibula study). Bone mineralization is good for age and is no fracture of the bones or the hardware. Arterial calcification, pattern typical in diabetics, is present. AP weightbearing view that includes the right knee show surgical clips in the soft tissues on the medial side of the knee joint area. There is preservation of joint space height in medial and lateral compartments and there is chondrocalcinosis of the medial and lateral compartments of the right knee without erosions. Exam Date/Time 01/18/2022 10:29 Procedure Name TIBIA & FIBULA 2 VIEWS(LEFT) Reason for Study hardware in palce Clinical History may need to see ortho again Impression Intact osseous structures and hardware in this patient who has a left knee fusion with intramedullary christofer traversing from proximal femur to distal tibia. Report Left tibia/fibula: Hardware present. AP and lateral views without previous reveal intramedullary christofer in the left tibia. Accompanying views of the bilateral knees show that this christofer crosses the former left knee joint and extends up into the proximal femur. Transverse screw is located in the distal christofer crossing the left tibia from cortex to cortex. No evidence of loosening. No fracture of bone or hardware is identified. Arterial calcification is present; pattern can be seen in diabetics. Future Clinic Visits 08/08/2024 11:00 SPR AUDIO MAINT 09/03/2024 12:30 NHM OPTOMETRY 1 PM A/P: Active problems - Computerized Problem List is the source for the followin yo M w chronic pain to LLE post septic infection w removal of kneecap christofer placement w suboptimal pain relief w hydrodocone. #start butrans 5mcg patch q 7 days monitor pain severity and cont w hydorocone 5/325mg 2-3x daily avoid NSAIDs in setting of CRI Failed many topical pain meds, lidocaine, volteran burning. consider Empowered Relief-patient reports trouble sitting for prolonged periodss -Generalized anxiety disorder: -sleep disturbance: cont zoloft 200mg daily consider trial of cymbalta #Refer for Alpha stim trial declines need for sleep study-cont to monitor can consider CBT-I f/u tele 06/23 Review of medical records: 15 min Time spent w patient including shared decision makin min Post visit documentation: 10 min No barriers; Patient understands and agrees to current treatment plan. Outpt. Medication Reconciliation: Outpatient Medication Reconciliation No Discrepancies Found - Med Rec Completed. The patient's medication list/medication history was compared with CPRS and reviewed with the patient/caregiver and reconciled. The patient/caregiver was instructed to update this list, discard old lists, and take this list to their next appointment, whether with a [facility] or non-VA provider. Any changes in medications and any medications discontinued are documented in this note. /devon/ MARY HOLLIS RN,MSN,HORSE SHOW MANAGER-C [facility] NURSE PRACTITIONER Signed: 06/09/2024 15:50 06/09/2024 ADDENDUM STATUS: COMPLETED #start butrans 5mcg patch q 7 days monitor pain severity and cont w hydorocone 5/325mg 2-3x daily as needed for optimal pain management consider Empowered Relief-patient reports trouble sitting for prolonged periodss #Refer for Alpha stim trial declines need for sleep study-cont to monitor PCP to consider evaluation for LUTS, urinary retention given nocuria 3-4x nightly /es/ MARY HOLLIS RN,MSN,HORSE SHOW MANAGER-C [facility] NURSE PRACTITIONER Signed: 06/09/2024 15:52 Receipt Acknowledged By: * AWAITING SIGNATURE * BONITA HELMS 06/09/2024 17:06 /es/ Dolores Mancilla SURGICAL APPLIANCES SALESPERSON [facility] WOVEN LABEL DESIGNER for DALTON TRINIDAD 06/10/2024 ADDENDUM STATUS: COMPLETED FYI Ms Trinidad /devon/ Dolores Mancilla RN BSN [facility] WOVEN LABEL DESIGNER Signed: 06/10/2024 09:48 Receipt Acknowledged By: * AWAITING SIGNATURE * DALTON TRINIDAD CYNT [place] [facility]
--- OUTSIDE RECORDS SUMMARY | 2024-06-10 11:19 | XMS_ITS | Clinical Summary ---
Author Organization [facility] Address [address] [place] [address] Phone Care Team Providers Care Hydraulic Operator Name Role Phone William Mcghee DO Primary Care Provider [phone] [facility] Unavailable [phone] Reason for Visit and Chief Complaint Established Patient Plan of Treatment Pending Tests Order Diagnosis Results Due Ordering P ruperto Follow Up - Appointment 1 Week Contusio n of left lower leg, initial encounter 11/21/22 Fidencio Edwards MD Last Documented On 3 10:37AM ; [facility] Assessments Includes: Assessments from this encounter No Assessments Recorded Medical Equipment - Implanted Devices Includes: Current Devices No Medical Equipment Recorded Medications Includes: Medications discussed during this encounter and other current Medications Current Medications (continue as prescribed) Hydrocodone-Acetaminophen Oral Tablet 10/31/2022 Pro vider: Diagnosis: Last Documented On 3 8:26AM By Bright Sanchez ; [facility] Medications Administered Includes: Administered Medications from this encounter No Administered Medications Recorded Vital Signs Includes: Vital Signs from this encounter Vital Name 11/21/2022 10:05A Blood Pressure Sitting (mmHg) 148/66 Pulse Rate-Sitting (bpm) 66 Temp-Temporal 97 Height (in) 66 Weight (lb) 155 Body Mass Index 25 Body Surface Area 1.8 Oxygen Saturation (%) 99 Last Documented: On 11/21/2022 10:05A M ; [facility] Results Includes: Results discussed during this [...] Includes: Review of Systems from this encounter No Review of Systems Recorded Mental Status Includes: Mental Status from this encounter No Mental Status Recorded Functional Status Includes: Functional Status from this encounter No Functional Status Recorded Physical Exam Includes: Physical Exam from this encounter Allergies Includes: Active Allergies Substance Type Reaction Onset Date Resolved Date Statu s guaiFENesin Allergy Tingling in Fin gers/Skin Peels Off 10/31/2022 Active Last Documented On 3 10:31AM ; [facility] En[facility] Encounter Provider Location Date Check-In Time Check-Out Time Diagnosis Established Patient Fidencio Edwards MD [facility] 11/22/19 23 10:00AM 10:36AM Insurance Includes: Active Insurance Policies Plan Name Member ID Group # Subscriber Relationship Effect roland Dates 1 - Medicare Part B [facility] [id number] Tay Elizabeth Self 2 - [employer] [id number] Tay Elizabeth [facility] Clinical Notes Includes: Clinical Notes from this encounter * Progress note Date Encounter Last Documented by 11/21/2022 Established Patient Last alise simpson on 11/21/2022; 10:37 AM, Fidencio Edwards MD; [facility] Current Medication - Hydrocodone-Acetaminophen Oral Tablet 0 days, 0 refills Allergies - guaiFENesin Reaction: Tingling in Fingers/Skin Peels Off Physical Findings - Vitals taken 11/21/2022 10:05 am BP-Sitting 148/66 mmHg Pulse Rate-Sitting 66 bpm Temp-Temporal 97 F Height 66 in Weight 155 lbs Body Mass Index 25 kg/m2 Body Surface Area 1.8 m2 Oxygen Saturation 99 % Chief complaint: Follow-up left leg hematoma History of Present Illness: This is an 82-year-old man who we are following for a left leg hematoma treated nonoperatively. He was seen in the hospital and was subsequently seen here as an outpatient on 10/31/2022. He was asked to return today for wound check. He has no complaints today. He reports there is a persistent opening over his distal leg. Physical exam: There is a 1.5 x 1.5 cm skin and opening over the anterior aspect of the distal leg. There is persistent swelling lateral to that with fluctuance. There is no drainage. There appears to be clotted hematoma within the wound. Imaging: None today Impression: Hematoma left leg. Plan: I prepped the area with Betadine solution. I inserted sterile Q-tips through the opening in the skin and into the hematoma cavity and loosened the hematoma and was able to evacuate the hematoma. No purulence, redness, or tenderness was present. I instructed the patient to cleanse the area with soap and water then apply Betadine solution and a clean dry bandage once daily. I asked him to keep the wound dry. I told him to expect some drainage on the bandage from residual hematoma. I asked him to return in 1 week for wound check. Plan StartCited - Contusion of left lower leg, initial encounter Follow Up/Appointment: 1 Week EndCited
--- OUTSIDE RECORDS SUMMARY | 2024-06-10 11:19 | XMS_ITS | Clinical Summary ---
Author Organization [facility] Address [address] [place] [address] Phone Care Team Providers Care Health Science Specialist Name Role Phone William Mcghee DO Primary Care Provider [phone] [facility] Unavailable [phone] Reason for Visit and Chief Complaint Established Patient Plan of Treatment Pending Tests Order Diagnosis Results Due Ordering Dory hickey Follow Up - Appointment 1 Month Pain in left lower leg 11/28/22 Sara Campa MD Last Documented On 3 10:03AM ; [facility] Assessments Includes: Assessments from this encounter No Assessments Recorded Medical Equipment - Implanted Devices Includes: Current Devices No Medical Equipment Recorded Medications Includes: Medications discussed during this encounter and other current Medications Current Medications (continue as prescribed) Hydrocodone-Acetaminophen Oral Tablet 10/31/2022 Pro vider: Diagnosis: Last Documented On 3 8:26AM By Bright Sanchez ; [facility] Medications Administered Includes: Administered Medications from this encounter No Administered Medications Recorded Results Includes: Results discussed during this encounter [...] Review of Systems from this encounter Chief complaint: Follow-up left leg hematoma History of Present Illness: This is an 82-year-old man who we are following for a left leg hematoma treated nonoperatively. He was seen in the hospital and was subsequently seen here as an outpatient on 10/31/2022. He was asked to return today for wound check. He has no complaints today. He reports there is a persistent small opening over his distal leg. Physical exam: There is a 0.5 x 0.5 cm skin and opening over the anterior aspect of the distal leg. There is persistent swelling lateral to that with no fluctuance. There is no drainage. Imaging: None today Impression: Hematoma left leg. Plan: Doing well. Continue local wound care. Follow-up in 1 month. Wound appears to slowly be closing and granulating in. No obvious fluctuance or hematoma noted today. Mental Status Includes: Mental Status from this encounter No Mental Status Recorded Functional Status Includes: Functional Status from this encounter No Functional Status Recorded Physical Exam Includes: Physical Exam from this encounter No Physical Exam Recorded Allergies Includes: Active Allergies Substance Type Reaction Onset Date Resolved Date Statu s guaiFENesin Allergy Tingling in Fin gers/Skin Peels Off 10/31/2022 Active Last Documented On 3 10:31AM ; [facility] Encounters Encounter Provider Location Date Check-In Time Check-Out Time Diagnosis Established Patient Sara Campa MD [facility] 023 10:40AM 10:10AM Insurance Includes: Active Insurance Policies Plan Name Member ID Group # Subscriber Relationship Effect roland Dates 1 - Medicare Part B of [place] [id number] Tay Biswas 2 - Medex [id number] Tay Biswas Clinical Notes Includes: Clinical Notes from this encounter * Progress note Date Encounter Last Documented by 11/28/2022 Established Patient Neymar simpson on 11/28/2022; 10:03 AM, Sara Campa MD; [facility] Plan StartCited - Pain in left lower leg Follow Up/Appointment: 1 Month EndCited User Defined 4 Chief complaint: Follow-up left leg hematoma History of Present Illness: This is an 82-year-old man who we are following for a left leg hematoma treated nonoperatively. He was seen in the hospital and was subsequently seen here as an outpatient on 10/31/2022. He was asked to return today for wound check. He has no complaints today. He reports there is a persistent small opening over his distal leg. Physical exam: There is a 0.5 x 0.5 cm skin and opening over the anterior aspect of the distal leg. There is persistent swelling lateral to that with no fluctuance. There is no drainage. Imaging: None today Impression: Hematoma left leg. Plan: Doing well. Continue local wound care. Follow-up in 1 month. Wound appears to slowly be closing and granulating in. No obvious fluctuance or hematoma noted today.
--- OUTSIDE RECORDS SUMMARY | 2024-06-10 11:19 | XMS_ITS | Clinical Summary ---
Author Organization [facility] Address [address] [facility] [address] [place] [address] Phone Care Team Providers Care Inside Sales Director Name Role Phone William Mcghee DO Primary Care Provider [phone] Allergies Active Allergy Reactions Criticality Noted Date Comments Guaifenesin Other (see comments) Medium 01/11/2017 Skin peeling - hands Iodinated Contrast Media Other (see comments) 04/09/2018 Scopolamine Other (see comments) 12/07/2008 Medications Multiple Vitamin (MULTIVITAMIN ADULT PO) Take 1 tablet by mouth twice a day Active atorvastatin (LIPITOR) 20 MG tablet Take 1 tablet by mouth 1 (one) time each day Active Cholecalciferol 50 MCG (2000 UT) capsule Take 1 capsule by mouth 1 (one) time each day Active metoprolol tartrate 25 MG tablet Take 1 tablet by mouth 2 (two) times a day Active pancrelipase, Xlu-Suae-Njvs, (Creon) 41413-56356 units capsule Take 3 capsules by mouth 1 (one) time each day Active sertraline (ZOLOFT) 100 MG tablet Take 1 tablet by mouth 1 (one) time each day Active amLODIPine (NORVASC) 10 MG tablet Take 10 mg by mouth 1 (one) time each day Active Active Problems Problem Noted Date Diagnosed Date 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 01/09/2022 H/O: depression 01/09/2022 11/27/2022 Insulin pump present 01/09/2022 11/27/2022 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 breakdown of skin 06/07/2021 Polyneuropathy due to type 2 diabetes mellitus 0 06/07/2021 Hypertension 06/07/2021 Benign hypertensive renal disease 12/07/2020 Stage 3a chronic kidney disease 12/07/2020 Proteinuria 12/07/2020 Acute necrotizing pancreatitis 04/09/2018 Overview (06/07/2021): History Benign prostatic hyperplasia 04/09/2018 Carpal tunnel syndrome 04/09/2018 Overview (06/07/2021): Right release 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 H/O: malignant neoplasm 04/09/2018 Overview (06/07/2021): 2008 Hearing loss 04/09/2018 Overview (06/07/2021): Bilateral hearing aids Acute kidney failure 01/27/2016 Anxiety disorder 01/27/2016 Bacteremia 01/27/2016 Difficulty in walking 01/27/2016 Hyperkalemia 01/27/2016 Major depressive disorder with single episode Non-ST elevation (NSTEMI) myocardial infarction 01/27/2016 Other lack of coordination 01/27/2016 Presence of left artificial knee joint 6 Pyogenic arthritis 01/27/2016 Hypertensive disorder 06/13/2013 Overview (12/07/2020): Hypertensive disorder Resolved Problems Problem Noted Date Diagnosed Date Resolved Date Osteoarthritis of knee 01/15/201712/07 Prosthetic joint infection 01/15/2017 0 12/07/2020 Hyperlipidemia 07/19/2016 12/07/2020 Coronary arteriosclerosis 06/13/2013 Overview (12/07/2020): Coronary arteriosclerosis Diabetes mellitus 06/13/2013 12/07/2020 Overview (12/07/2020): Diabetes mellitus Immunizations Name Administration Dates Next Due Influenza (IM) Preservative Free 021,12/11/2018,12/07/2017,11/13,12/15/2015,11/25/2014 Influenza Split High Dose Pr eservative Free IM 12/11/2018 Influenza, Unspecified 11/26/2008 Moderna SARS-COV-2 12/17/2020 Pneumococcal Polysaccharide 09/11/2013 Family History Medical History Relation Comments Hypertension Father Hypertension Mother Stroke Mother Heart disease Sibling 1 Diabetes Sibling 2 Hypertension Sibling 3 Relation Status Comments Father Mother Sibling 1 Sibling 2 Sibling 3 Social History Tobacco Use Types Packs/Day Years Used Date Smoking Tobacco: Former Smokeless Tobacco: Never Tobacco Cessation:Counseling Given: Not Answered Alcohol Use Standard Drinks/Week Comments Yes 0 (1 standard drink = 0.6 oz pure alcohol) Alcoholic Drinks/day: Occasional social drink Sex and Gender Information Value Date Recorded Sex Assigned at Not on file Legal Sex Male 5:13 PM EST Gender Identity Not on file Sexual Orientation Not on file Last Filed Vital Signs Vital Sign Reading Time Taken Comments Blood Pressure 120/60 11/27/2022 2:51 PM EDT Pulse 53 01/03/2022 2:11 PM EDT Temperature - - Respiratory Rate - - Oxygen Saturation 98% 12/07/2020 1:31 PM EDT Inhaled Oxygen Concentration - - Weight 73.3 kg (161 lb 9.6 oz) 11/27/2022 2:51 P M EDT Height 170.2 cm (5' 7 ) 10/14/2019 12:00 PM EDT Body Mass Index 25.31 10/14/2019 12:00 PM EDT Plan of Treatment Health Maintenance Due Date Last Done Comments Diabetes: Hemoglobin A1C 06/06/2021 09/07/2020 Diabetes: Ophthalmology Exam 06/06/2021 Diabetes: Pedal Pulse Checked 06/06/2021 Diabetes: Sensory Foot Exam 06/06/2021 Diabetes: Visual Foot Exam 06/06/2021 Influenza Vaccine (#1) 2023 2, 12/10/2020, 11/26/2020, Additional history exists Pneumococcal Vaccine: 65+ Years Completed 06/17/2015, 09/11/2013, 03/12/2009 Hepatitis B Vaccine Aged Out No longe r eligible based on patient's age to complete this topic Procedures Procedure Name Priority Date/Time Associated Diagnosis Comments EXT RESULT ENTRY Routine 09/07/2020 from Last 3 Months or Most Recently Relevant to Health Maintenance Results * (ABNORMAL) EXT RESULT ENTRY (09/07/2020) WBC 9.3 3.3 - 10.0 10*3/ML Red Blood Cell Count 4.81 Hemoglobin 14.2 13.5 - 17.5 Hematocrit 44.2 41.0 - 53.0 Platelets 133(A) 150 - 399 10*3/UL MCV 91.9 82.0 - 108.0 Ferritin 114.3 18.0 - 300.0 NG/ML Sodium 137 137 - 147 Potassium 4.6 3.4 - 5.5 Chloride 103 99 - 108 Bicarbonate (CO2) 24 22 - 30 mmol/L Glucose 271(A) 60 - 200 BUN 27(A) 4 - 21 mg/dL Creatinine 1.20 0.60 - 1.30 mg/dL Calcium 8.9 8.7 - 10.7 mg/dL eGFR Non-Afr [place]kinan 58 Uric Acid 5.2 MG/DL Hemoglobin A1C 9.2(A) 4.0 - 6.0 Alb/Creat Ratio, Ur 136.6 mg/g Creat Triglycerides 149 40 - 160 Cholesterol 139 0 - 200 HDL 29(A) 35 - 70 MG/DL LDL Calculated 80 0 - 160 mg/dL 09/07/2020 us Historical Provider LAB BLOOD ORDERABLES Janet l Result from Last 3 Months or Most Recently Relevant to Health Maintenance Insurance [place] [address] [facility] [employer] Care Teams Inside Sales Director Relationship Specialty Start Date End Date iWlliam Mcghee DO [address] [place] [address] PCP - General 03/22/20
--- OUTSIDE RECORDS SUMMARY | 2024-06-10 11:19 | XMS_ITS | Encounter Summary ---
Author Name [facility] Organization [facility] Address [address] [place] [address] Care Team Providers Care Warehouse Team Member Name Role Phone BONITA HELMS Primary Care [...] Name Patient's Relationship to Policy [facility] MEDIC[facility] SUPPLEMEN MEGHANA MEDEX ANDRY E Mar 12, 2016 [id number] PRIYANK ELIZABETH SEPH PATIENT MEDICARE (WNR) MEDICARE (M) PART B May 10, 2004 PART B [id number] PRIYANK ELIZABETH SEPH PATIENT MEDICARE (WNR) MEDICARE (M) PART B May 10, 2004 PART B [id number] [phone] [id number] PRIYANK ELIZABETH SEPH PATIENT MEDICARE (WNR) MEDICARE (M) PART A July 10, 1997 PART A [id number] PRIYANK ELIZABETH PATIENT MEDICARE (WNR) MEDICARE (M) PART A July 10, 1997 PART A [id number] [phone] PRIYANK ELIZABETH PATIENT Selected Encounter This section includes the information on record at MD for the Encounter. Date/Time Encounter Type Encounter Description Reason Provider Source Dec 14, 2023 08:23 AM QNHP OL DIG ASSMT&MGMT 21+ [facility] - CLINICAL PHARMACIST ICD-10-CM Z79.899 Other assisted (current) drug therapy CELE VELÁZQUEZ [facility] Encounter Template Text not used by MD Assessments - Encounter Diagnoses This section includes the primary and secondary diagnoses documented for the Encounter. Date/Time Primary/Secondary Diagnosis Diagnosis Name Provider Source Dec 14, 2023 09:57 AM PRIMARY Other long term acute care registered nurse (current) drug therapy [facility] Plan of Treatment: Future Appointments (+ 6 months) and Future Tests (+/- 45 days) The Plan of Treatment section includes future care activities for the patient from all MD treatmentfacilities. This section includes future appointments and future orders which are active, pending or scheduled. Future Appointments This section includes appointments that were scheduled to occur 6 months from the date of the Encounter, up to a maximum of 20 appointments. The data comes from all MD treatment facilities. Appointment Date/Time Appointment Type Appointme nt Facility Name Jan 09, 2024 02:00 PM AMBULATORY - REHAB MEDICIN E [place] [facility] [place] [facility] Feb 29, 2024 11:00 AM AMBULATORY - REHAB MEDICIN [facility] Mar 17, 2024 11:00 AM AMBULATORY - REHAB MEDICIN E [facility] [place] [facility] Apr 11, 2024 01:00 PM AMBULATORY - REHAB MEDICIN [facility] May 06, 2024 10:30 AM AMBULATORY - REHAB MEDICIN E MD [facility] [place] [facility] May 22, 2024 11:30 AM AM[facility]ULAT[facility] Social History: Smoking Status (Most current) and Tobacco Use (All prior to encounter date) This section includes the most current, and the historical, smoking and tobacco- related health factors from the MD facility where the Encounter took place. Current Smoking Status This section includes the most current smoking, or tobacco-related health factor, from the MD facility where the Encounter took place. Date/Time Current Smoking Status Comment Kathy unger Mar 24, 2022 10:01 AM MD-TOBACCO NEVER USED [place] [facility] [facility] Advance Directives: All historical and current Section Date Range: From patient's date of to the date document was created. This section includes ALL of a patient's completed or amended VA Advance and Rescinded Directives. The entries below indicate that a directive exists for the patient, but an actual copy is not included with this document. The data comes from all MD facilities. Date Advance Directives Provider Source Jun 28, 2009 ADVANCE DIRECTIVE MANUELITO MORELOS Encounter Notes: All associated encounter notes This section contains the clinical notes associated to the Encounter. Date/Time Encounter Note(s) Provider Source Dec 14, 2023 10:40 AM ADDENDUM: LOCAL TITLE: Addendum STANDARD TITLE: ADDENDUM DATE OF NOTE: DEC 14, 2023@10:40:18 ENTRY DATE: DEC 14, 2023@10:40:19 AUTHOR: DALTON TRINIDAD EXP COSIGNER: URGENCY: STATUS: COMPLETED Dayhoit has not been taking aspirin. is overdue for cardiology visit, had ECHO 2 years ago but never had a visit with bleacher operator. [facility] is the practice that ordered the echo. They cannot give him an appt until they receive a consult. Requesting cardiology consult be entered by PCP if appropriate, requesting PVC, FAX [phone]. /es/ Dalton Trinidad RN [facility] jive developer Signed: 12/14/2023 10:43 Receipt Acknowledged By: 12/14/2023 11:06 /es/ BONITA HELMS [facility] NURSE PRACTITIONER --- Original Document --- 12/14/23 [facility] MEDICATION REVIEW: Tay Elizabeth Jr. is [...] ACTIVE MOUTH AT BEDTIME FOR CHOLESTEROL 5) CALCIUM 500MG/VITAMIN D 200 UNT TAB TAKE 1 TABLET BY ACTIVE MOUTH TWICE DAILY FOR CALCIUM SUPPLEMENT * NEW 6) CARBOXYMETHYLCELLULOSE NA 0.5% OPH SOLN INSTILL 1 ACTIVE DROP INTO EACH EYE FOUR TIMES DAILY NEEDED FOR DRY EYE 7) CREON 24,000UNIT EC CAP TAKE 3 CAPSULES BY MOUTH ACTIVE THREE TIMES A DAY 8) GLUCOSE 4GM CHEW TAB CHEW FOUR TABLETS BY MOUTH ACTIVE (S) NEEDED FOR LOW BLOOD SUGAR 9) GLUCOSE SENSOR FREESTYLE CINDI 3 USE 1 SENSOR ACTIVE DIRECTED EVERY 14 DAYS 10) HYDROCODONE 5MG/ACETAMINOPHEN 325MG TAB TAKE 1 TABLET ACTIVE BY MOUTH THREE TIMES DAILY NEEDED FOR PAIN 11) INSULIN,ASPART,HUMAN 100 UNIT/ML INJ INJECT INSULIN ACTIVE SUBCUTANEOUSLY THREE TIMES DAILY NEEDED ACCORDING TO SLIDING SCALE 12) LANCET,SOFTCLIX USE 1 LANCET DIRECTED FOUR TIMES A ACTIVE DAY TO TEST BLOOD SUGAR 13) METOPROLOL TARTRATE 25MG TAB TAKE ONE-HALF TABLET BY HOLD MOUTH TWICE DAILY FOR BLOOD PRESSURE/HEART * DOSE INCREASE from 6.25mg BID 14) MULTIVIT/OPHTH AREDS2/LUTE/ZEAX CAP/TAB TAKE 1 ACTIVE CAPSULE BY MOUTH TWICE DAILY IN THE MORNING AND EVENING, WITH FOOD 15) NALOXONE HCL 4MG/SPRAY SOLN NASAL SPRAY INSTILL 1 ACTIVE SPRAY ONE NOSTRIL ONE TIME NEEDED FOR OPIOID OVERDOSE CALL 911 WITH ADMINISTRATION. REPEAT WITH SECOND DEVICE IF SYMPTOMS RETURN 16) SERTRALINE HCL 100MG TAB TAKE ONE TABLET BY MOUTH ACTIVE (S) TWICE DAILY 17) TABLET CUTTER (PILL SPLITTER) USE CUTTER DIRECTED ACTIVE BY PROVIDER TO SPLIT TABLETS 18) TAMSULOSIN HCL 0.4MG CAP TAKE ONE CAPSULE BY MOUTH ACTIVE ONCE DAILY FOR ENLARGED PROSTATE Active Non-VA Medications Status 1) Non-VA OTHER CAP/TAB FISH OIL, 1000MG EVERY DAY ACTIVE THE ABOVE MEDICATIONS WERE REVIEWED FOR: ADR, potential incompatibilities, compliance, duplication of therapy, and indications on problem list Other Rx/OTC/Herbals: zolpidem (exp) High Alert Meds: hydrocodone/acetaminophen, insulin aspart, zolpidem (exp) Look Alike/Sound Alike Meds: atorvastatin, hydrocodone/acetaminophen, insulin aspart, metoprolol tartrate, naloxone, sertraline Duplication of Therapy: none Excessive Duration: fish oil, ?zolpidem (exp) Vitals: ======= Ht: 67 in [170.2 cm] (11/06/2022 14:48) Wt: 155.4 lb [70.49 kg] (10/25/2023 13:00) BMI: 24.4 BP: 136/70 (11/22/2023 11:00) HR: 68 (11/22/2023 11:00) Pain: 4 (11/22/2023 11:00) Labs: ===== SERUM Na K BUN SCr [...] mg/dL (06/07/23) Alb: 3.7 g/dL (06/07/23) ASSESSMENT: In the last 90 days: - No falls/hospitalizations/infectio ns noted - Per the 10/26/23 [facility] RN note, adolfo will think about whether he would like to switch from non-VA to [facility] Endo. - Received a steroid injection to his shoulder on 11/07/23. - Per the 11/08/23 [facility] RN note, adolfo was started on Freestyle Cindi 3 and [facility] RN provided education. Adolfo was found to have a reading over 500 and entered into his insulin pump which prompted him to administer insulin aspart. Non-VA Endo was alerted. - Per the 11/22/23 [facility] RN note, adolfo likes using the Freestyle Cindi 3 system because he doesn't have to do fingersticks 6 times a day anymore. Shared data with his non-VA Endo provider. Had difficulty opening the new sensor but [facility] RN showed him how to do it and he verbalized understanding. Avg BG over the past 2 weeks was 179. Adolfo has an upcoming PET scan scheduled due to concern for metastasis of bladder cancer based on findings from pelvic CT scan. - Per the 12/11/23 [facility] RN note, has an appt with non-VA Endo on 12/13/23. BG ranges from 74-399. INTERVENTIONS/SUGGESTIONS: 1. Patient's medications were reviewed for significant drug interactions. * hydrocodone/sertraline: concurrent use may increase risk of serotonin syndrome; monitor for signs/sx (neuromuscular abnormalities, tachycardia, diaphoresis, hyperthermia, N/V, diarrhea or AMS) * hydrocodone/zolpidem: concurrent use may increase risk of respiratory and TEST SPECIALIST depression; recommend limiting use of zolpidem with [...] of hypoglycemia; continue to monitor SMBG using CGM * metoprolol/tamsulosin: concurrent [...] prostate cancer - diagnosed 2021, followed by non-MD Urology; s/p TURP, under surveillance (cystoscopy every 6 months); PET scan was recently ordered given concern for metastasis of bladder cancer based on findings from pelvic CT scan - was recommended to f/u with Urology * T1DM - hx of total pancreatectomy, on insulin pump (insulin aspart) currently followed by non-MD Endo with support from [facility] IDT, recently started SMBG using CGM (FeedMagnet Cindi 3) and BG readings seemed to have improved since sharing data with specialist, receives steroid injections every 3 months; last A1c 9.8% elevated but recent BG readings reflect improved BG control; has glucose tabs at home to be used PRN for hypoglycemia; last seen by Optometry in Nov 2023 - 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; followed by non-VA Podiatry * HTN - on amlodipine and metoprolol tartrate (recent dose increase from 6.25mg BID to 12.5mg BID) with recent limited SBPs in 120s-130s and HRs 46-76; continue to monitor for bradycardia and reassess appropriateness of beta mary dosing; if additional BP lowering is required would consider ROSARIO-i or ARB especially given last labwork significant for elevated microalbumin/Cr; followed by non-MD Cardiology * BPH - on tamsulosin * GERD [...] ASCVD and HLD; last LDL 58 and AST slightly elevated with ALT WNL [...] remote history of significantly elevated TG (in [id number]) 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 * [...] an active Rx for nasal opioid antagonist to be used PRN for breathing emergency * zolpidem - PRN Rx for bedtime but was taking on a scheduled basis per med refills; dose recently reduced from 10mg to 5mg, 5mg Rx recently so unclear if adolfo is still taking and how often); not typically recommended in older adults given concern for dizziness, next day impairment, TEST SPECIALIST depression, and confusion as well as association with fall/fracture risk and increased ER visits/hospitalizations; will recommend clarifying current frequency of use and encouraging minimization of PRN use with plan to discontinue entirely to reduce risks and avoid withdrawal symptoms from abrupt discontinuation 6. Adherence Concerns: - adolfo manages his own medications * Creon - last filled 10/26/23 (33-day supply) 7. Health Maintenance: > Immunizations: Dayhoit is due for the following immunizations per chart review and CDC recommendations: * RSV * PCV20 (shared decision making) - received PCV13 on 06/17/15 - received PPSV23 in Mar 2009 > Tobacco/EtOH: * Continue to ensure minimal alcohol intake given older age and hx of falls > Bladder/Bowel: * Inquire about incontinence and severity biannually. > Bone Health: * last Ca and vit D levels low, supplementation was subsequently started; due for repeat labwork (lab orders pending) > Aspirin: * not on low-dose aspirin despite ASCVD hx * hx of hematuria and falls per problem list 8. Patient with zero refills on: Creon, insulin aspart 9. Continue to review quarterly. Recommendations: - For your awareness, adolfo's Creon Rx is out of refills and he appears to be due for a refill (last refill released 10/31/23 for a 30-day supply). - Please clarify if adolfo has been using zolpidem 5mg and at what frequency. If he is still using the supply from the [facility] please add to his non-VA medication list for completeness and encourage minimization of use given common adverse effects of dizziness, next day impairment, TEST SPECIALIST depression, and confusion as well as association with fall/fracture risk and increased ER visits/hospitalizations. Goal is to discontinue agent completely and if continues to struggle with insomnia can trial a safer option for pharmacotherapy, as appropriate. - Recommend discontinuation of fish oil given last TG of 134 and lack of evidence supporting use of fish oil supplements for CV risk reduction. 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 - Adolfo has a history of CAD, [...] for secondary ASCVD prevention. Of note, last AST was elevated, but baseline elevation in AST/ALT is not a reason to avoid statins for a compelling indication. If statin dose is increased will just have to continue to monitor LFTs and for muscle-related symptoms suggestive that is not tolerating. - Per chart review had an appt scheduled with non-VA Endo on 12/13/23. Please request documentation. - Please assess 's willingness to receive the RSV vaccine during next scheduled visit. * This typewriters functional tester refilled 's Freestyle Cindi 3 Rx as requested by [facility] RN. The details of this review were shared with the IDT in order to assist in creating a care plan designed to provide services focused on the health and well being of the patient. Time Spent: 60 min /devon/ CELE VELÁZQUEZ [facility] Clinical Pharmacist Practitioner Signed: 12/14/2023 10:01 Receipt Acknowledged By: 12/14/2023 10:19 /devon/ BONITA HELMS [facility] NURSE PRACTITIONER 12/14/2023 10:48 /es/ Dalton Trinidad RN [facility] jive developer 12/14/2023 ADDENDUM STATUS: COMPLETED Dalton- can you confirm if he does take aspirin? I wrote it in my admit but never added it to his med list so I want to be sure. thanks. /devon/ BONITA HELMS [facility] NURSE PRACTITIONER Signed: 12/14/2023 10:21 Receipt Acknowledged By: 12/14/2023 10:30 /es/ Dalton Trinidad RN HB jive developer DALTON TRINIDAD [facility] Dec 14, 2023 10:20 AM ADDENDUM: LOCAL TITLE: Addendum STANDARD TITLE: ADDENDUM DATE OF NOTE: DEC 14, 2023@10:20:51 ENTRY DATE: DEC 14, 2023@10:20:52 AUTHOR: BONITA HELMS COSIGNER: URGENCY: STATUS: COMPLETED Dalton- can you confirm if he does take aspirin? I wrote it in my admit but never added it to his med list so I want to be sure. thanks. /devon/ BONITA HELMS [facility] NURSE PRACTITIONER Signed: 12/14/2023 10:21 Receipt Acknowledged By: 12/14/2023 10:30 /es/ Dalton Trinidad RN [facility] jive developer --- Original Document --- 12/14/23 [facility] MEDICATION REVIEW: Tay Elizabeth Jr. is [...] ACTIVE MOUTH AT BEDTIME FOR CHOLESTEROL 5) CALCIUM 500MG/VITAMIN D 200 UNT TAB TAKE 1 TABLET BY ACTIVE MOUTH TWICE DAILY FOR CALCIUM SUPPLEMENT * NEW 6) CARBOXYMETHYLCELLULOSE NA 0.5% OPH SOLN INSTILL 1 ACTIVE DROP INTO EACH EYE FOUR TIMES DAILY NEEDED FOR DRY EYE 7) CREON 24,000UNIT EC CAP TAKE 3 CAPSULES BY MOUTH ACTIVE THREE TIMES A DAY 8) GLUCOSE 4GM CHEW TAB CHEW FOUR TABLETS BY MOUTH ACTIVE (S) NEEDED FOR LOW BLOOD SUGAR 9) GLUCOSE SENSOR FREESTYLE CINDI 3 USE 1 SENSOR ACTIVE DIRECTED EVERY 14 DAYS 10) HYDROCODONE 5MG/ACETAMINOPHEN 325MG TAB TAKE 1 TABLET ACTIVE BY MOUTH THREE TIMES DAILY NEEDED FOR PAIN 11) INSULIN,ASPART,HUMAN 100 UNIT/ML INJ INJECT INSULIN ACTIVE SUBCUTANEOUSLY THREE TIMES DAILY NEEDED ACCORDING TO SLIDING SCALE 12) LANCET,SOFTCLIX USE 1 LANCET DIRECTED FOUR TIMES A ACTIVE DAY TO TEST BLOOD SUGAR 13) METOPROLOL TARTRATE 25MG TAB TAKE ONE-HALF TABLET BY HOLD MOUTH TWICE DAILY FOR BLOOD PRESSURE/HEART * DOSE INCREASE from 6.25mg BID 14) MULTIVIT/OPHTH AREDS2/LUTE/ZEAX CAP/TAB TAKE 1 ACTIVE CAPSULE BY MOUTH TWICE DAILY IN THE MORNING AND EVENING, WITH FOOD 15) NALOXONE HCL 4MG/SPRAY SOLN NASAL SPRAY INSTILL 1 ACTIVE SPRAY ONE NOSTRIL ONE TIME NEEDED FOR OPIOID OVERDOSE CALL 911 WITH ADMINISTRATION. REPEAT WITH SECOND DEVICE IF SYMPTOMS RETURN 16) SERTRALINE HCL 100MG TAB TAKE ONE TABLET BY MOUTH ACTIVE (S) TWICE DAILY 17) TABLET CUTTER (PILL SPLITTER) USE CUTTER DIRECTED ACTIVE BY PROVIDER TO SPLIT TABLETS 18) TAMSULOSIN HCL 0.4MG CAP TAKE ONE CAPSULE BY MOUTH ACTIVE ONCE DAILY FOR ENLARGED PROSTATE Active Non-VA Medications Status 1) Non-VA OTHER CAP/TAB FISH OIL, 1000MG EVERY DAY ACTIVE THE ABOVE MEDICATIONS WERE REVIEWED FOR: ADR, potential incompatibilities, compliance, duplication of therapy, and indications on problem list Other Rx/OTC/Herbals: zolpidem (exp) High Alert Meds: hydrocodone/acetaminophen, insulin aspart, zolpidem (exp) Look Alike/Sound Alike Meds: atorvastatin, hydrocodone/acetaminophen, insulin aspart, metoprolol tartrate, naloxone, sertraline Duplication of Therapy: none Excessive Duration: fish oil, ?zolpidem (exp) Vitals: ======= Ht: 67 in [170.2 cm] (11/06/2022 14:48) Wt: 155.4 lb [70.49 kg] (10/25/2023 13:00) BMI: 24.4 BP: 136/70 (11/22/2023 11:00) HR: 68 (11/22/2023 11:00) Pain: 4 (11/22/2023 11:00) Labs: ===== SERUM Na K BUN SCr [...] mg/dL (06/07/23) Alb: 3.7 g/dL (06/07/23) ASSESSMENT: In the last 90 days: - No falls/hospitalizations/infectio ns noted - Per the 10/26/23 [facility] RN note, adolfo will think about whether he would like to switch from non-VA to [facility] Endo. - Received a steroid injection to his shoulder on 11/07/23. - Per the 11/08/23 [facility] RN note, adolfo was started on Freestyle Cindi 3 and [facility] RN provided education. Adolfo was found to have a reading over 500 and entered into his insulin pump which prompted him to administer insulin aspart. Non-VA Endo was alerted. - Per the 11/22/23 [facility] RN note, adolfo likes using the Freestyle Cindi 3 system because he doesn't have to do fingersticks 6 times a day anymore. Shared data with his non-VA Endo provider. Had difficulty opening the new sensor but [facility] RN showed him how to do it and he verbalized understanding. Avg BG over the past 2 weeks was 179. Adolfo has an upcoming PET scan scheduled due to concern for metastasis of bladder cancer based on findings from pelvic CT scan. - Per the 12/11/23 [facility] RN note, adolfo has an appt with non-VA Endo on 12/13/23. BG ranges from 74-399. INTERVENTIONS/SUGGESTIONS: 1. Patient's medications were reviewed for significant drug interactions. * hydrocodone/sertraline: concurrent use may increase risk of serotonin syndrome; monitor for signs/sx (neuromuscular abnormalities, tachycardia, diaphoresis, hyperthermia, N/V, diarrhea or AMS) * hydrocodone/zolpidem: concurrent use may increase risk of respiratory and TEST SPECIALIST depression; recommend limiting use of zolpidem with [...] of hypoglycemia; continue to monitor SMBG using CGM * metoprolol/tamsulosin: concurrent [...] prostate cancer - diagnosed 2021, followed by non-MD Urology; s/p TURP, under surveillance (cystoscopy every 6 months); PET scan was recently ordered given concern for metastasis of bladder cancer based on findings from pelvic CT scan - was recommended to f/u with Urology * T1DM - hx of total pancreatectomy, on insulin pump (insulin aspart) currently followed by non-VA Endo with support from [facility] ID[facility], recently started SMBG using CGM (FeedMagnet Cindi 3) and BG readings seemed to have improved since sharing data with specialist, receives steroid injections every 3 months; last A1c 9.8% elevated but recent BG readings reflect improved BG control; has glucose tabs at home to be used PRN for hypoglycemia; last seen by Optometry in Nov 2023 - 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; followed by non-VA Podiatry * HTN - on amlodipine and metoprolol tartrate (recent dose increase from 6.25mg BID to 12.5mg BID) with recent limited SBPs in 120s-130s and HRs 46-76; continue to monitor for bradycardia and reassess appropriateness of beta mary dosing; if additional BP lowering is required would consider ROSARIO-i or ARB especially given last labwork significant for elevated microalbumin/Cr; followed by non-MD Cardiology * BPH - on tamsulosin * GERD [...] ASCVD and HLD; last LDL 58 and AST slightly elevated with ALT WNL [...] remote history of significantly elevated TG (in [id number]) 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 * [...] an active Rx for nasal opioid antagonist to be used PRN for breathing emergency * zolpidem - PRN Rx for bedtime but adolfo was taking on a scheduled basis per med refills; dose recently reduced from 10mg to 5mg, 5mg Rx recently so unclear if is still taking and how often); not typically recommended in older adults given concern for dizziness, next day impairment, TEST SPECIALIST depression, and confusion as well as association with fall/fracture risk and increased ER visits/hospitalizations; will recommend clarifying current frequency of use and encouraging minimization of PRN use with plan to discontinue entirely to reduce risks and avoid withdrawal symptoms from abrupt discontinuation 6. Adherence Concerns: - adolfo manages his own medications * Creon - last filled 10/26/23 (33-day supply) 7. Health Maintenance: > Immunizations: Adolfo is due for the following immunizations per chart review and CDC recommendations: * RSV * PCV20 (shared decision making) - received PCV13 on 06/17/15 - received PPSV23 in Mar 2009 > Tobacco/EtOH: * Continue to ensure minimal alcohol intake given older age and hx of falls > Bladder/Bowel: * Inquire about incontinence and severity biannually. > Bone Health: * last Ca and vit D levels low, supplementation was subsequently started; due for repeat labwork (lab orders pending) > Aspirin: * not on low-dose aspirin despite ASCVD hx * hx of hematuria and falls per problem list 8. Patient with zero refills on: Creon, insulin aspart 9. Continue to review quarterly. Recommendations: - For your awareness, adolfo's Creon Rx is out of refills and he appears to be due for a refill (last refill released 10/31/23 for a 30-day supply). - Please clarify if adolfo has been using zolpidem 5mg and at what frequency. If he is still using [facility] please add to his non-VA medication list for completeness and encourage minimization of use given common adverse effects of dizziness, next day impairment, TEST SPECIALIST depression, and confusion as well as association with fall/fracture risk and increased ER visits/hospitalizations. Goal is to discontinue agent completely and if continues to struggle with insomnia can trial a safer option for pharmacotherapy, as appropriate. - Recommend discontinuation of fish oil given last TG of 134 and lack of evidence supporting use of fish oil supplements for CV risk reduction. 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 - Dayhoit has a history of CAD, but is [...] for secondary ASCVD prevention. Of note, last AST was elevated, but baseline elevation in AST/ALT is not a reason to avoid statins for a compelling indication. If statin dose is increased will just have to continue to monitor LFTs and for muscle-related symptoms suggestive that is not tolerating. - Per chart review had an appt scheduled with non-VA Endo on 12/13/23. Please request documentation. - Please assess 's willingness to receive the RSV vaccine during next scheduled visit. * This typewriters functional tester refilled 's Freestyle Cindi 3 Rx as requested by [facility] RN. The details of this review were shared with the IDT in order to assist in creating a care plan designed to provide services focused on the health and well being of the patient. Time Spent: 60 min /devon/ CELE VELÁZQUEZ [facility] Clinical Pharmacist Practitioner Signed: 12/14/2023 10:01 Receipt Acknowledged By: 12/14/2023 10:19 /devon/ BONITA HELMS [facility] NURSE PRACTITIONER * AWAITING SIGNATURE * DALTON TRINIDAD JESSICA FRANCES MD [facility] Dec 14, 2023 08:23 AM [facility] MEDICATION MGT NOTE: LOCAL TITLE: [facility] PHARMACY MEDICATION REVIEW STANDARD TITLE: [facility] MEDICATION MGT NOTE DATE OF NOTE: DEC 14, 2023@08:23 ENTRY DATE: DEC 14, 2023@08:23:58 AUTHOR: CELE VELÁZQUEZ COSIGNER: URGENCY: STATUS: COMPLETED [facility] PHARMACY MEDICATION REVIEW Has ADDENDA Tay Elizabeth [...] ACTIVE MOUTH AT BEDTIME FOR CHOLESTEROL 5) CALCIUM 500MG/VITAMIN D 200 UNT TAB TAKE 1 TABLET BY ACTIVE MOUTH TWICE DAILY FOR CALCIUM SUPPLEMENT * NEW 6) CARBOXYMETHYLCELLULOSE NA 0.5% OPH SOLN INSTILL 1 ACTIVE DROP INTO EACH EYE FOUR TIMES DAILY NEEDED FOR DRY EYE 7) CREON 24,000UNIT EC CAP TAKE 3 CAPSULES BY MOUTH ACTIVE THREE TIMES A DAY 8) GLUCOSE 4GM CHEW TAB CHEW FOUR TABLETS BY MOUTH ACTIVE (S) NEEDED FOR LOW BLOOD SUGAR 9) GLUCOSE SENSOR FREESTYLE CINDI 3 USE 1 SENSOR ACTIVE DIRECTED EVERY 14 DAYS 10) HYDROCODONE 5MG/ACETAMINOPHEN 325MG TAB TAKE 1 TABLET ACTIVE BY MOUTH THREE TIMES DAILY NEEDED FOR PAIN 11) INSULIN,ASPART,HUMAN 100 UNIT/ML INJ INJECT INSULIN ACTIVE SUBCUTANEOUSLY THREE TIMES DAILY NEEDED ACCORDING TO SLIDING SCALE 12) LANCET,SOFTCLIX USE 1 LANCET DIRECTED FOUR TIMES A ACTIVE DAY TO TEST BLOOD SUGAR 13) METOPROLOL TARTRATE 25MG TAB TAKE ONE-HALF TABLET BY HOLD MOUTH TWICE DAILY FOR BLOOD PRESSURE/HEART * DOSE INCREASE from 6.25mg BID 14) MULTIVIT/OPHTH AREDS2/LUTE/ZEAX CAP/TAB TAKE 1 ACTIVE CAPSULE BY MOUTH TWICE DAILY IN THE MORNING AND EVENING, WITH FOOD 15) NALOXONE HCL 4MG/SPRAY SOLN NASAL SPRAY INSTILL 1 ACTIVE SPRAY ONE NOSTRIL ONE TIME NEEDED FOR OPIOID OVERDOSE CALL 911 WITH ADMINISTRATION. REPEAT WITH SECOND DEVICE IF SYMPTOMS RETURN 16) SERTRALINE HCL 100MG TAB TAKE ONE TABLET BY MOUTH ACTIVE (S) TWICE DAILY 17) TABLET CUTTER (PILL SPLITTER) USE CUTTER DIRECTED ACTIVE BY PROVIDER TO SPLIT TABLETS 18) TAMSULOSIN HCL 0.4MG CAP TAKE ONE CAPSULE BY MOUTH ACTIVE ONCE DAILY FOR ENLARGED PROSTATE Active Non-[facility] Medications Status 1) Non-VA OTHER CAP/TAB FISH OIL, 1000MG EVERY DAY ACTIVE THE ABOVE MEDICATIONS WERE REVIEWED FOR: ADR, potential incompatibilities, compliance, duplication of therapy, and indications on problem list Other Rx/OTC/Herbals: zolpidem (exp) High Alert Meds: hydrocodone/acetaminophen, insulin aspart, zolpidem (exp) Look Alike/Sound Alike Meds: atorvastatin, hydrocodone/acetaminophen, insulin aspart, metoprolol tartrate, naloxone, sertraline Duplication of Therapy: none Excessive Duration: fish oil, ?zolpidem (exp) Vitals: ======= Ht: 67 in [170.2 cm] (11/06/2022 14:48) Wt: 155.4 lb [70.49 kg] (10/25/2023 13:00) BMI: 24.4 BP: 136/70 (11/22/2023 11:00) HR: 68 (11/22/2023 11:00) Pain: 4 (11/22/2023 11:00) Labs: ===== SERUM Na K BUN SCr [...] mg/dL (06/07/23) Alb: 3.7 g/dL (06/07/23) ASSESSMENT: In the last 90 days: - No falls/hospitalizations/infectio ns noted - Per the 10/26/23 [facility] RN note, adolfo will think about whether he would like to switch from [facility] to [facility]. - Received a steroid injection to his shoulder on 11/07/23. - Per the 11/08/23 [facility] RN note, adolfo was started on Freestyle Cindi 3 and [facility] RN provided education. Adolfo was found to have a reading over 500 and entered into his insulin pump which prompted him to administer insulin aspart. Non-[facility] Endo was alerted. - Per the 11/22/23 [facility] RN note, adolfo likes using the Freestyle Cindi 3 system because he doesn't have to do fingersticks 6 times a day anymore. Shared data with his non-[facility] Endo provider. Had difficulty opening the new sensor but [facility] RN showed him how to do it and he verbalized understanding. Avg BG over the past 2 weeks was 179. has an upcoming PET scan scheduled due to concern for metastasis of bladder cancer based on findings from pelvic CT scan. - Per the 12/11/23 [facility] RN note, has an appt with non-VA Endo on 12/13/23. BG ranges from 74-399. INTERVENTIONS/SUGGESTIONS: 1. Patient's medications were reviewed for significant drug interactions. * hydrocodone/sertraline: concurrent use may increase risk of serotonin syndrome; monitor for signs/sx (neuromuscular abnormalities, tachycardia, diaphoresis, hyperthermia, N/V, diarrhea or AMS) * hydrocodone/zolpidem: concurrent use may increase risk of respiratory and TEST SPECIALIST depression; recommend limiting use of zolpidem with [...] of hypoglycemia; continue to monitor SMBG using CGM * metoprolol/tamsulosin: concurrent [...] - diagnosed 2021, followed by non-[facility] Urology; s/p TURP, under surveillance (cystoscopy every 6 months); PET scan was recently ordered given concern for metastasis of bladder cancer based on findings from pelvic CT scan - was recommended to f/u with Urology * T1DM - hx of total pancreatectomy, on insulin pump (insulin aspart) currently followed by non-[facility] Endo with support from [facility] IDT, recently started SMBG using CGM (FeedMagnet Cindi 3) and BG readings seemed to have improved since sharing data with specialist, receives steroid injections every 3 months; last A1c 9.8% elevated but recent BG readings reflect improved BG control; has glucose tabs at home to be used PRN for hypoglycemia; last seen by Optometry in Nov 2023 - 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; followed by non-[facility] Podiatry * HTN - on amlodipine and metoprolol tartrate (recent dose increase from 6.25mg BID to 12.5mg BID) with recent limited SBPs in 120s-130s and HRs 46-76; continue to monitor for bradycardia and reassess appropriateness of beta mary dosing; if additional BP lowering is required would consider ROSARIO-i or ARB especially given last labwork significant for elevated microalbumin/Cr; followed by non-[facility] Cardiology * BPH - on tamsulosin * GERD [...] ASCVD and HLD; last LDL 58 and AST slightly elevated with ALT WNL [...] remote history of significantly elevated TG (in 6119-7641) 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 * [...] an active Rx for nasal opioid antagonist to be used PRN for breathing emergency * zolpidem - PRN Rx for bedtime but was taking on a scheduled basis per med refills; dose recently reduced from 10mg to 5mg, 5mg Rx recently so unclear if is still taking and how often); not typically recommended in older adults given concern for dizziness, next day impairment, TEST SPECIALIST depression, and confusion as well as association with fall/fracture risk and increased ER visits/hospitalizations; will recommend clarifying current frequency of use and encouraging minimization of PRN use with plan to discontinue entirely to reduce risks and avoid withdrawal symptoms from abrupt discontinuation 6. Adherence Concerns: - manages his own medications * Creon - last filled 10/26/23 (33-day supply) 7. Health Maintenance: > Immunizations: Adolfo is due for the following immunizations per chart review and CDC recommendations: * RSV * PCV20 (shared decision making) - received PCV13 on 06/17/15 - received PPSV23 in Mar 2009 > Tobacco/EtOH: * Continue to ensure minimal alcohol intake given older age and hx of falls > Bladder/Bowel: * Inquire about incontinence and severity biannually. > Bone Health: * last Ca and vit D levels low, supplementation was subsequently started; due for repeat labwork (lab orders pending) > Aspirin: * not on low-dose aspirin despite ASCVD hx * hx of hematuria and falls per problem list 8. Patient with zero refills on: Creon, insulin aspart 9. Continue to review quarterly. Recommendations: - For your awareness, adolfo's Creon Rx is out of refills and he appears to be due for a refill (last refill released 10/31/23 for a 30-day supply). - Please clarify if adolof has been using zolpidem 5mg and at what frequency. If [facility] please add to his non-[facility] medication list for completeness and encourage minimization of use given common adverse effects of dizziness, next day impairment, TEST SPECIALIST depression, and confusion as well as association with fall/fracture risk and increased ER visits/hospitalizations. Goal is to discontinue agent completely and if continues to struggle with insomnia can trial a safer option for pharmacotherapy, as appropriate. - Recommend discontinuation of fish oil given last TG of 134 and lack of evidence supporting use of fish oil supplements for CV risk reduction. 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 - Adolfo has a history of CAD, [...] for secondary ASCVD prevention. Of note, last AST was elevated, but baseline elevation in AST/ALT is not a reason to avoid statins for a compelling indication. If statin dose is increased will just have to continue to monitor LFTs and for muscle-related symptoms suggestive that is not tolerating. - Per chart review had an appt scheduled with non-[facility] Endo on 12/13/23. Please request documentation. - Please assess 's willingness to receive the RSV vaccine during next scheduled visit. * This typewriters functional tester refilled 's Freestyle Cindi 3 Rx as requested by [facility] RN. The details of this review were shared with the IDT in order to assist in creating a care plan designed to provide services focused on the health and well being of the patient. Time Spent: 60 min /devon/ CELE VELÁZQUEZ [facility] Clinical Pharmacist Practitioner Signed: 12/14/2023 10:01 Receipt Acknowledged By: 12/14/2023 10:19 /devon/ BONITA HELMS [facility] NURSE PRACTITIONER 12/14/2023 10:48 /devon/ Dalton Trinidad RN [facility] jive developer 12/14/2023 ADDENDUM STATUS: COMPLETED Dalton- can you confirm if he does take aspirin? I wrote it in my admit but never added it to his med list so I want to be sure. thanks. /devon/ BONITA HELMS [facility] NURSE PRACTITIONER Signed: 12/14/2023 10:21 Receipt Acknowledged By: 12/14/2023 10:30 /deovn/ Dalton Trinidad RN [facility] jive developer 12/14/2023 ADDENDUM STATUS: COMPLETED Dayhoit has not been taking aspirin. Dayhoit is overdue for cardiology visit, had ECHO 2 years ago but never had a visit with bleacher operator. [facility] is the practice that ordered the echo. They cannot give him an appt until they receive a consult. Requesting cardiology consult be entered by PCP if appropriate, requesting PVC, FAX [phone]. /devon/ Dalton Trinidad RN [facility] jive developer Signed: 12/14/2023 10:43 Receipt Acknowledged By: * AWAITING SIGNATURE * BONITA HELMS SARAH [facility]
--- OUTSIDE RECORDS SUMMARY | 2024-06-10 11:19 | XMS_ITS | Encounter Summary ---
Author Organization [facility] Address [address] [place] [id number] Phone Care Team Providers Care Construction Driller Name Role Phone Fidencio Johnson DO Primary Care Provider Un available William Mcghee DO Primary Care Provider [phone] Encounter Details Date Type Department Care Team (Late st Contact Info) Description 01/15/2017 Prep for Surgery [facility] PACU6 [address] [place] [address] Letty Peter, ANGEL [address] [place] [address] [email or web address] Social History Tobacco Use Types Packs/Day Years [...] documented as of this encounter Care Teams Construction Driller Relationship Specialty Start Date End Date Fidencio Johnson DO PCP - General Internal Medicine 07/19/16 06/27/17 William Mcghee DO [address] [place] [address] [address] [place] [address] PCP - General Internal Medicine 06/28/17 documented as of this encounter Additional Source Comments The information contained in this document represents components of the legal health record. It is not the complete legal health record.[facility]
--- OUTSIDE RECORDS SUMMARY | 2024-06-10 11:19 | XMS_ITS | Clinical Summary ---
Author Organization [address] [facility] Address [address] [place] [phone] Phone Care Team Providers Care Hvac Mechanic Name Role Phone William Mcghee DO Primary Care Provider [phone] Allergies Active Allergy Reactions Criticality Noted Date Comments Dyphylline-Guaifenesin 06/19/2023 Dyphylline-guafenesin [dilor-g] Tingling in finger tips & skin on fingers peels off Iodinated Contrast Media 04/09/2018 Medications AMLODIPINE BESYLATE, BULK, MISC Take 10 mg by mouth 1 (one) time each day. Active atorvastatin (LIPITOR) 20 mg tablet Take 1 Tablet by mouth daily. Active HYDROCODONE-ROSARIO TAMINOPHEN ORAL Take 5 mg by mouth 3 (three) times a day. Active metoprolol tartrate (LOPRESSOR) 25 mg tablet Take 0.5 tablets (12.5 mg total) by mouth 2 (two) times a day. Active mv-min/FA/vit K/lutein/zeaxan t (PRESERVISION AREDS 2 PLUS MV ORAL) Take by mouth. Activ e sertraline (ZOLOFT) 100 mg tablet Take 1 tablet (100 mg total) by mouth 2 (two) times a day. Active tamsulosin (FLOMAX) 0.4 mg 24 hr capsule Take 1 Capsule by mouth daily. Take 30 mins after same meal every day. Active cholecalciferol (VITAMIN D-3) 50 mcg (2,000 unit) capsule Take by mouth. A ctive PANCREATIN-LIPA [id number] ORAL Pancrelipase, Izb-Tfah-Hmsz, [address] units CAPSULE ENTERIC COATED PARTICLES Take ??by mouth. - Oral Active zolpidem (AMBIEN) 10 mg tablet Take 1 tablet (10 mg total) by mouth at bedtime as needed for sleep. Max Daily Amount: 10 mg Active Active Problems Problem Noted Date Diagnosed Date Hyperlipidemia 03/11/2024 Assessment & Plan (05/12/2024 11:04 AM EST): LDL 41 mg/dL on statin therapy. Medication is well-tolerated. 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 Continue secondary prevention therapies. 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 Orders: ECG 12 lead Hearing loss 04/09/2018 Overview (03/11/2024): Bilateral hearing aids Hypertension 04/09/2018 Assessment & Plan (05/12/2024 11:04 AM EST): Well-controlled on medical therapy. Orders: ECG 12 lead Encounters Date Type Department Care Team Description 05/12/2024 10:20 AM EST Office Visit [facility] [address] [place] [address] Yeni Casey MD Coronary artery disease involving [place] coronary artery of [place] heart without angina pectoris (Primary Dx); Primary hypertension; Pure hypercholesterolemia; DM (diabetes mellitus), type 2 with neurological complications (CMS/HCC) from Last 3 Months Surgical History Surgery Date Site/Laterality Comments CORONARY ARTERY BYPASS GRAFT 11/20/2016 PROCEDURE: HISTORICAL CABG; COMMENT: 3 vessel CARPAL TUNNEL RELEASE Right PROCEDURE: HISTORICAL CARPAL TUNNEL REL OTHER SURGICAL HISTORY 2007 Left PROCEDURE: WI ABLATION RENAL TUMOR UNILATERAL PERQ CRYOTHERAPY; COMMENT: Cryotherapy Left Renal Mass BACK SURGERY PROCEDURE: HISTORICAL BACK SURGERY; COMMENT: x 3 OTHER SURGICAL HISTORY PROCEDURE: HISTORY OTHER; COMMENT: testicular surgery TOTAL KNEE ARTHROPLASTY 12/24/2015 Left PROCEDURE: HISTORICAL TOTAL KNEE REPLACE CHOLECYSTECTOMY PROCEDURE: HISTORICAL CHOLECYSTECTOMY OTHER SURGICAL HISTORY Bilateral PROCEDURE: HISTORY OTHER; COMMENT: Hernia Repair OTHER SURGICAL HISTORY PROCEDURE: WI MANIPULATION KNEE JOINT UNDER GENERAL ANESTHESIA; COMMENT: x 2, 05/22/16 & 04/21/16. No cultures taken OTHER SURGICAL HISTORY PROCEDURE: RESECTION/DEBRIDEMENT OF PANCREAS; COMMENT: Pancreatic debridement 2008 & 2009 [place] OTHER SURGICAL HISTORY PROCEDURE: WI TENDON SHEATH INCISION; COMMENT: trigger finger release ROTATOR CUFF REPAIR Right PROCEDURE: HISTORICAL ROTATOR CUFF REPAIR OTHER SURGICAL HISTORY 01/23/2016 Left PROCEDURE: WI ARTHRP KNEE TIBIAL PLATEAU DBRDMT&PRTL SYNVCT; COMMENT: and 01/17/16 with polyethylene liner exchange CARDIAC CATHETERIZATION 1987 PROCEDURE: HISTORICAL CARDIAC CATH; COMMENT: with stent placement OTHER SURGICAL HISTORY PROCEDURE: WI UNLISTED LAPAROSCOPY PROCEDURE BILIARY TRACT; COMMENT: biliary bypass Medical History Medical History Date Comments Carpal tunnel syndrome 04/09/2018 DX:Carpal tunnel syndrome; COMMENT: Right release Chronic infection of left kn ee (CMS/HCC) 04/09/2018 DX:Chronic infection of left knee (HCC); COMMENT: MRSA Hearing loss 04/09/2018 DX:Hearing loss; COMMENT: Bilateral hearing aids History of kidney cancer 04/09/2018 DX:Hist ory of kidney cancer; COMMENT: 2008 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 DX:Necr otizing pancreatitis; COMMENT: History Hypertension 04/09/2018 DX:Hypertension Hyperlipidemia 04/09/2018 DX:Hyperlipidemi a BPH (benign prostatic hyperplasia) 04/09/2018 DX:BPH (benign prostatic hyperplasia) Failed total knee, left, 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/2018 DX:Failed total knee, left, sequela; COMMENT: 01/2016 PJI - MRSA CAD (coronary artery disease) 04/09/2018 DX :CAD (coronary artery disease); COMMENT: 1986 Stent placement, 11/2016 NSTEMI, 3 vessel CABG DM (diabetes mellitus), type 2 with neurological complications (CMS/HCC) 04/09/2018 DX:DM (diabetes m ellitus), type 2 with neurological complications (HCC); COMMENT: Insulin pump Osteoarthritis 04/09/2018 DX:Osteoarthriti s Family History Medical History Relation Name Comments CABG Brother CVA Heart attack Father age 50 of [place], diabetes Stroke Mother age 50 of CVA complications, diabetes Diabetes Sister No Known Problems Son 1 Relation Name Status Comments Brother Alive Father Mother Sister Son 1 Son 2 Social History Tobacco Use Types Packs/Day Years Used Date Smoking Tobacco: Former Cigarettes Q uit: 03/12/1986 Alcohol Use Standard Drinks/Week Comments No 0 (1 standard drink = 0.6 oz pur e alcohol) Sex and Gender Information Value Date Recorded Sex Assigned at Not on file Legal Sex Male 1:01 AM EST Gender Identity Not on file Sexual Orientation Not on file Obstetrics History Last Filed Vital Signs Vital Sign Reading Time Taken Comments Blood Pressure 102/58 05/12/2024 10:18 AM EST Pulse 47 05/12/2024 10:18 AM EST Temperature - - Respiratory Rate - - Oxygen Saturation 96% 05/12/2024 10:18 AM EST Inhaled Oxygen Concentration - - Weight 73.5 kg (162 lb) 05/12/2024 10:18 AM EST Height 170.2 cm (5' 7 ) 05/12/2024 10:18 AM EST Body Mass Index 25.37 05/12/2024 10:18 AM EST Plan of Treatment Health Maintenance Due Date Last Done Comments Diabetes: Annual Foot Exam 05/18/1950 Diabetes: Annual Retina Eye Exam 05/18/1950 Depression Screening 02/12/2022 Falls Risk Assessment 02/12/2022 Medicare Annual Wellness Visit 02/12/2022 Social Influencers of Health Screening 02/12/2022 Diabetes: Annual Urine Albumin-Creatinine Ratio (uACR) 02/23/2022 Diabetes: Blood Sugar Control Test (HGBA1C) 02/23/2022 Diabetes: Annual GFR (Glomerular Filtration Rate) 01/23/2025 01/24/2024, 06/12/2017 Hypertension/CHF/CAD Annual BMP Blood Test 01/23/2025 01/24/2024, 06/12/2017 Cholesterol Screening (Lipid Panel) 01/23/2029 01/24/2024 DTaP,Tdap,and Td Vaccines (5 - Td or Tdap) 10/10/2032 10/10/2022, 03/24/2022, 12/11/2011, Additional history exists Pneumococcal Vaccine: 50+ Years Completed 06/17/2015, 09/11/2013, 03/12/2009 Zoster Vaccines Completed 02/18/2021, 10/2020, 11/12/2012 Influenza Vaccine Completed 11/22/2023, , 12/14/2022, Additional history exists COVID-19 Vaccine Completed 12/12/2023, 02/2022, 12/17/2020, Additional history exists RSV Immunization Patients 60+ Years Old Completed 01/22/2024 HIB Vaccines Aged Out No longer eligi ble based on patient's age to complete this topic HPV Vaccines Aged Out No longer eligi ble based on patient's age to complete this topic Hepatitis A Vaccines Aged Out No long er eligible based on patient's age to complete this topic Hepatitis B Vaccines Aged Out No long er eligible based on patient's age to complete this topic IPV Vaccines Aged Out No longer eligi ble based on patient's age to complete this topic MMR Vaccines Aged Out No longer eligi ble based on patient's age to complete this topic Meningococcal ACWY Vaccine Aged Out N o longer eligible based on patient's age to complete this topic Meningococcal B Vacine Aged Out No lo nger eligible based on patient's age to complete this topic RSV Immunization Patients Under 20 months Aged Out No longer eligible based on patient's age to complete this topic Varicella Vaccines Aged Out No longer eligible based on patient's age to complete this topic Procedures Procedure Name Priority Date/Time Associated Diagnosis Comments ECG 12-LEAD Routine 05/12/2024 10:32 AM EST Coronary artery disease involving [place] coronary artery of [place] heart without angina pectoris Primary hypertension Pure hypercholesterolemia DM (diabetes mellitus), type 2 with neurological complications (CMS/HCC) BASIC METABOLIC PANEL Routine 01/24/2024 10:35 AM EST Essential hypertension, malignant Hyperlipemia LIPID PANEL WITH REFLEX TO DIRECT LDL Routine 01/24/2024 10:35 AM EST Essential hypertension, malignant Hyperlipemia from Last 3 Months or Most Recently Relevant to Health Maintenance Results * ECG 12 lead (05/12/2024 10:32 AM EST) Ventricular Rate ECG 47 BPM GEMUSE Atrial Rate 47 BPM GEMUSE P-R Interval 296 ms GEMUSE QRS Duration 102 ms GEMUSE Q-T Interval 462 ms GEMUSE QTc 408 ms GEMUSE P Wave [place] 99 degrees GEMUSE R [place] 5 degrees GEMUSE T [place] 0 degrees GEMUSE ECG Interpretation Sinus bradycardia with 1st degree A-V block Septal infarct (cited on or before 23-JAN-2016) Abnormal ECG When compared with ECG of 09-FEB-2021 11:03, No significant changes are noted Confirmed by YENI CASEY ([id number]) on 05/12/2024 10:37:52 AM GEMUSE 05/12/2024 10:3 2 AM EST 05/12/2024 10:37 AM EST us Yeni Casey MD ECG ORDERABLES Final Result GEMUSE * (ABNORMAL) Lipid panel with reflex to direct LDL (01/24/2024 10:35 AM EST) Cholesterol 79 0 - 200 mg/dL LAB CHEMISTRY METHOD 01/24/2024 1:25 PM EST [facility] Triglycerides 88 0 - 150 mg/dL LAB CHEMISTRY METHOD 01/24/2024 1:25 PM EST [facility] HDL 20(L) >=40 mg/dL LAB CHEMISTRY METHOD 01/24/2024 1:25 PM [facility] LDL Calculated 41 0 - 100 mg/dL LAB CHEMISTRY METHOD 01/24/2024 1:25 PM [facility] VLDL Cholesterol Will 17.6 mg/dL LAB CHEMISTRY METHOD 01/24/2024 1:25 PM EST [facility] Non HDL Chol. (LDL+VLDL) 59 <145 mg/dL LAB CHEMISTRY METHOD 01/24/2024 1:25 PM [facility] Chol/HDL Ratio 4.0 0.0 - 4.4 LAB CHEMISTRY METHOD 01/24/2024 1:25 PM [facility] Blood Venous blood specimen / Unknown Venipuncture / Unknown 01/24/2024 10:35 AM EST 01/24/2024 10:35 AM EST Dedra Bowden EN[employer]IRON[employer]BER LAB BLOOD ORDERABLES Fi nal Result [facility] [address] [place] [address], * (ABNORMAL) Basic metabolic panel (01/24/2024 10:35 AM EST) Sodium 135 133 - 145 mmol/L LAB CHEMISTRY METHOD 01/24/2024 1:09 PM [facility] Potassium 4.3 3.5 - 5.5 mmol/L LAB CHEMISTRY METHOD 01/24/2024 1:09 PM [facility] Chloride 104 96 - 110 mmol/L LAB CHEMISTRY METHOD 01/24/2024 1:09 PM [facility] CO2 26 21 - 32 mmol/L LAB CHEMISTRY METHOD 01/24/2024 1:09 PM [facility] Anion Gap 5 3 - 11 LAB CHEMISTRY METHOD 01/24/2024 1:09 PM [facility] Glucose 179(H) 70 - 100 mg/dL LAB CHEMISTRY METHOD 01/24/2024 1:09 PM EST [facility] BUN 38(H) 5 - 25 mg/dL LAB CHEMISTRY METHOD 01/24/2024 1:09 PM [facility] Creatinine 1.56(H) 0.70 - 1.30 mg/dL LAB CHEMISTRY METHOD 01/24/2024 1:09 PM [facility] eGFR 44(L) >=60 mL/min/1. 73m2 LAB CHEMISTRY METHOD 01/24/2024 1:09 PM [facility] Comment:Calculation based on the??Chronic Kidney Disease Epidemiology Collaboration (CKD-EPI) equation refit??without adjustment for race. BUN/Creatinine Ratio 24.4 LAB CHEMISTRY METHOD 01/24/2024 1:09 PM [facility] Calcium 8.5 8.5 - 10.5 mg/dL LAB CHEMISTRY METHOD 01/24/2024 1:09 PM [facility] Blood Venous blood specimen / Unknown Venipuncture / Unknown 01/24/2024 10:35 AM EST 01/24/2024 10:35 AM EST Dedra Bowden ENVIRONMENTAL FI[employer] LAB BLOOD ORDERABLES Fi nal Result [facility] [address] [place] [address], from Last 3 Months or Most Recently Relevant to Health Maintenance Insurance MEDICARE Care Teams Hvac Mechanic Relationship Specialty Start Date End Date William Mcghee DO [address] [place] [phone] PCP - General 01/22/13
--- OUTSIDE RECORDS SUMMARY | 2024-06-10 11:19 | XMS_ITS | Continuity of Care Document ---
Author Name [facility] Organization [facility] Care Team Providers Care Inspector Wire Rope Name Role Phone [facility] Unavailable Unavailable Problems Combined list of problems from Department of Defense and Veterans Affairs facilities. It does not include entries that were removed or entered in error. 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 Active Condition [place] Age Macular Degeneration, Dry (Armd) Active Condition [facility] autophony Active Condition Aug 14 15 Entered By: YENI PUENTES Comment: Inner Ear Pathology AU; see ENT note dated JAN 23 [place] Bladder cancer Active Condition Sep 092021 Entered By: YENI PUENTES Comment: New Dx 2021; has Private URO;Sep 21, 2021 Entered By: YENI PUENTES Comment: to do Cysto's Every 3 Months Till Mass SubsidesJul 2021 Entered By: YENI PUENTES Comment: Portion of Mass Excised; Is doing Cryotherapy for Portion of Mass thatJul 2021 Entered By: YENI PUENTES Comment: Cannot be Safely ExcisedJul 2021 Entered By: YENI PUENTES Comment: Original Cysto Done Due to Noctuia, Frequnecy; Never HematuriaJul 2021 Entered By: YENI PUENTES Comment: Also, some BPH [place] Cataract, Cortical (Senile) Active Condition [facility] Cervical radiculopathy Active Condition Sep 16, 2020 Entered By: YENI PUENTES Comment: Has Seen Both Chiropractor and [facility]; [facility]CS Inj.;s via [facility] 2020 [place] Coronary artery disease Active Condition Sep 16, 2020 Entered By: YENI PUENTES Comment: CABG Years AgoJul 2021 Entered By: YENI PUENTES Comment: Still Sees Private Cardio as of SEPTEMBER 30; New ECHO Done AUGUST 31 [place] Depressive Disorder NOS Active Condition [facility] Diabetes mellitus (SNOMED CT [id number]) Active Condition Sep 14, 2005 Entered By: YENI PUENTES Comment: no DR per retinal exam on August Entered By: YENI PUENTES Comment: secondary Proteinuria ; Stable Renal Function as of APR 22Ju2011 Entered By: YENI PUENTES Comment: on Percutaneous Insulin Pump as of SEPTEMBER 20 [facility] Disorders of bursae and tendons in shoulder region Active Condition Apr 07, 009 Entered By: YENI PUENTES Comment: Surg Repair, RC Tear, R Shldr, DEC 18 (a Chronicity) [place] ENDOSCOPY Active Condition Jan 29 Entered By: YENI PUENTES Comment: Endoscopy JAN 16 privately (pt. not sure why)Oct 23, 2007 Entered By: YENI PUENTES Comment: Reflux - Prilosec helps a lot [place] Foot drop Active Condition May 04 Entered By: YENI PUENTES Comment: Foot Drop, R side; Hx L5-S1 Lesion (wears brace on foot)Oct 08, 2009 Entered By: YENI PUENTES Comment: Surg Oct Entered By: YENI PUENTES Comment: new Arthritis both Feet as of MAR 25; sees private Podiatry [place] Full thickness rotator cuff tear Active Condition Sep 16 Entered By: YENI PUENTES Comment: RC Tear, R Side 2011; He Elects NOT to Do SurgApr 2023 Entered By: YENI PUENTES Comment: Severe OA and Prob. RC Tear, L Shldr MAR 03: Declines Surg; Fall in ShowerApr 2023 Entered By: YENI PUENTES Comment: Seen by [facility] MAR 03; Surg Offered; He Declines [place] Gastroesophageal Reflux Disorder Active Condition Jun 21, 2004 Entered By: MAYTE ERVIN Comment: no hx of ulcer, gi bleed or scope. [place] Generalized anxiety disorder Active Condition [facility] Hearing impaired Active Condition [place] Hematuria Active Condition May 04 07 Entered By: YENI PUENTES Comment: +Hematuria is baseline ; Still Sees private URO as of 2006 Entered By: YENI PUENTES Comment: Hematuria and Obstructive Uropathy (never Dx w/ any CA)Feb 18, 2021 Entered By: YNEI PUENTES Comment: Last Saw URO JAN 30: Cysto DoneDec 2020 Entered By: YENI PUENTES Comment: New Bladder Lesion Noted; Suspicious for Malignancy;Feb 18, 2021 Entered By: YENI PUENTES Comment: pending Excision approx APR 02 [place] History of total pancreatectomy Active Condition [place] HYPERLIPIDEMIA NEC/NOS Active Condition [facility] Hypertension (SNOMED CT 95298736) Active Condition Nov 15, 2006 Entered By: YENI PUENTES Comment: +Renal Cysts Bilat (US OCT 16); refer URO to R/O RCCOct 2006 Entered By: YENI PUENTES Comment: Post-Op Dx of Left Renal Mass was Neg [place] [facility] Entered By: YENI PUENTES Comment: Proteinuria; saw private Nephro APR 22, Dr Souza [phone] [place] Localized, primary osteoarthritis Active Condition Apr 11, 2016 Entered By: YENI PUENTES Comment: TKR, L Side 2015; did Rehab; MRSA Post-Op;Apr 11, 2016 Entered By: YENI PUENTES Comment: Admitted w/ IV Abx's Few Weeks (now in PO abx);Apr 11, 2016 Entered By: YENI PUENTES Comment: Can't Ext Knee as of MAR 28: Pending Kneading of Scar TissueNov 2016 Entered By: YENI PUENTES Comment: Surg Revision (in JAN 26), of Hardware, from Previous TKR, L SideFeb 2017 Entered By: YENI PUENTES Comment: pending More Revisional Hardware Junep 2017 Entered By: YENI PUENTES Comment: Fell Twice 2018; Returning to Ortho; [place], Femur Intact ???Nov 27, 2017 Entered By: YENI PUENTES Comment: On Chemo-Prophylaxis for Sepsis LegJun 2019 Entered By: YENI PUENTES Comment: Last Saw Ortho AUGUST 29: No Complications Noted s/p L Knee Fusion [place] Pancreatitis (SNOMED CT [id number]) Active Condition May 01, 2007 Entered By: YENI PUENTES Comment: ERCP MAR 19 @ [facility], MAR 19 Neg Pancreatic CAFeb 2007 Entered By: YENI PUENTES Comment: does have some scarring Pancreas; not a drinkerApr 2009 Entered By: YENI PUENTES Comment: 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 andApr 2009 Entered By: YENI PUENTES Comment: Puncture Gastrum dus to Stent placed for Pancreas May Entered By: YENI PUENTES Comment: follows [facility] MAY 19 - another Endoscopy due Jun Entered By: YENI PUENTES Comment: now TYPE I Diabetic in 2009 Entered By: YENI PUENTES Comment: Necrotizing Pancreatitis & Insufficiency DEC 19;Jan 05, 2010 Entered By: YENI PUENTES Comment: private Dr Varela [phone] 29, 2013 Entered By: YENI PUENTES Comment: pending Cholecystectomy MAY 23 at [facility];May 29, 2013 Entered By: YENI PUENTES Comment: has new Biliary Obstruction as of MAY 23Fe2017 Entered By: YENI PUENTES Comment: [place] Absent Gallbladder;May 09, 2017 Entered By: YENI PUENTES Comment: Increased Echogenicity, Liver; ? Sclerosing Cholangitis?; Signif BilaryFe2017 Entered By: YENI PUENTES Comment: Tree DilatationJul 02, 2018 Entered By: YENI PUENTES Comment: US, ABD JUN 28: See Report; Air Biliary Tree? 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 Condition Jun 05 08 Entered By: ALISON VILCHIS OD Comment: area of hyperpigmentation superior periphery right eye [facility] Screening for Malignant Neoplasms of colon Active Condition Sep 15 006 Entered By: YENI PUENTES Comment: [facility] Entered By: YENI PUENTES Comment: NEG CRC - repeat 2009; paper report in paper Health recordsMay 25, 2014 Entered By: YENI PUENTES Comment: pending one more colonoscopy in 2014 [place] SENSORNEUR HEAR LOSS NOS Active Condition May 04, 2006 Entered By: YENI PUENTES Comment: subjective tinnitus [facility] Trigger finger Active Condition [facility] Trochanteric Bursitis Active Condition Dec 29, 2005 Entered By: YENI PUENTES Comment: gets Iontophoresis privately [place] Diagnosis: ICD-10-CM G89.29 Other chronic pain Active Diagnosis [facility] Diagnosis: ICD-10-CM Z79.899 Other long term care administrator (current) drug therapy Active Diagnosis [facility] Diagnosis: ICD-10-CM Z90.410 Acquired total absence of pancreas Active Diagnosis [facility] Diagnosis: ICD-10-CM M21.762 Unequal limb length (acquired), left tibia Active Diagnosis [facility] Diagnosis: ICD-10-CM E10.65 Type 1 diabetes mellitus with hyperglycemia Active Diagnosis [facility] Diagnosis: ICD-10-CM Z46.1 Encounter for fitting and adjustment of hearing aid Active Diagnosis [facility] Diagnosis: ICD-10-CM I25.10 Athscl heart disease of [place] coronary artery w/o ang pctrs Active Diagnosis [facility] Diagnosis: ICD-10-CM H90.3 Sensorineural hearing loss, bilateral Active Diagnosis [facility] Diagnosis: ICD-10-CM I11.9 Hypertensive heart disease without heart failure Active Diagnosis [facility] Diagnosis: ICD-10-CM H35.3133 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, bi, 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 Active Diagnosis [facility] Diagnosis: ICD-10-CM Z46.0 Encounter for fit/adjst of spectacles and contact lenses Active Diagnosis [facility] Diagnosis: ICD-10-CM R26.9 Unspecified abnormalities of gait and mobility Active Diagnosis [facility] Diagnosis: ICD-10-CM M17.12 Unilateral primary osteoarthritis, left knee Active Diagnosis [facility] Diagnosis: ICD-10-CM C67.9 Malignant neoplasm of bladder, unspecified Active Diagnosis [facility] Diagnosis: ICD-10-CM Z71.3 Dietary counseling and surveillance Active Diagnosis [facility] Diagnosis: ICD-10-CM Z71.89 Other specified counseling Active Diagnosis [facility] Diagnosis: ICD-10-CM Z65.9 Problem related to unspecified psychosocial circumstances Active Diagnosis [facility] Diagnosis: ICD-10-CM R00.1 Bradycardia, unspecified Active Diagnosis [facility] Diagnosis: ICD-10-CM Z13.6 Encounter for screening for cardiovascular disorders Active Diagnosis [facility] Diagnosis: ICD-10-CM R68.89 Other general symptoms and signs Active Diagnosis [facility] Diagnosis: ICD-10-CM K86.1 Other chronic pancreatitis Active Diagnosis [place] Medications [facility] list of outpatient medications from Department of Defense and [facility] facilities.Medications provided include 1) outpatient medications from the last 15 months, and 2) patient-reported medications. Medication Details Route Status Patient Instructions Prescription Expires Prescription Number Last Dispense Date Ordering Provider Order Date Order Qty Source AMLODIPINE BESYLATE 10MG TAB TAKE ONE TABLET BY MOUTH ONCE DAILY FOR BLOOD PRESSURE /HEART, DO NOT TAKE WITH GRAPEFRU IT JUICE REPLACE [place] ORAL ACTIVE 05/31/2025 [id number] 5 SILVANO HELMS 2024 90 [place] [facility] AMLODIPINE BESYLATE 10MG TAB TAKE ONE TABLET BY MOUTH ONCE DAILY FOR BLOOD PRESSURE /HEART, DO NOT TAKE WITH GRAPEFRU IT JUICE REPLACE [place] [facility]2024 [id number] 5 PRIYANK PUENTES 2023 90 [facility] IE AMLODIPINE BESYLATE 10MG TAB TAKE ONE TABLET BY MOUTH ONCE DAILY FOR BLOOD PRESSURE /HEART, DO NOT TAKE WITH GRAPEFRU IT JUICE REPLACE [place] [facility] DIS[facility] 03/25/2023 [id number] 4 PRIYANK PUENTES 2022 90 [facility] IELD AMYLASE 120,000UNIT /LIPASE 24,000UNIT/ PROTEASE 76,000UNIT CAP,EC TAKE 3 CAPSULES BY MOUTH THREE TIMES A DAY ORAL ACTIVE 04/09/2025 [id number] 5 SILVANO HELMS 2024 300 [facility] AMYLASE 120,000UNIT /LIPASE 24,000UNIT/ PROTEASE 76,000UNIT CAP,EC TAKE 3 CAPSULES BY MOUTH THREE TIMES A DAY ORAL DISCONT INUED 01/02/2025 [id number] 4 SILVANO HELMS [facility] 2023 300 [facility] AMYLASE 120,000UNIT /LIPASE 24,000UNIT/ PROTEASE 76,000UNIT CAP,EC TAKE 3 CAPSULES BY MOUTH THREE TIMES A DAY ORAL DISCONT INUED 08/14/2024 [id number] 4 PRIYANK PUENTES 2023 300 [place] AMYLASE 120,000UNIT /LIPASE 24,000UNIT/ PROTEASE 76,000UNIT CAP,EC TAKE 3 CAPSULES BY MOUTH THREE TIMES A DAY ORAL DISCONT INUED 05/22/2024 [id number] 4 PRIYANK PUENTES 2023 250 [place] AMYLASE 120,000UNIT /LIPASE 24,000UNIT/ PROTEASE 76,000UNIT CAP,EC TAKE 3 CAPSULES BY MOUTH THREE TIMES A DAY ORAL DISCONT INUED 02/20/2024 [id number] 4 PRIYANK PUENTES 2022 250 [place] ATORVASTATI N CA 20MG TAB TAKE ONE TABLET BY MOUTH AT BEDTIME FOR CHOLESTE ROL ORAL ACTIVE 05/31/2025 [id number] 5 SCOOTERSILVANO Loo [facility] 2024 90 [facility] ATORVASTATI N CA 20MG TAB TAKE ONE TABLET BY MOUTH AT BEDTIME FOR CHOLESTE ROL ORAL DISCONT INUED 06/11/2024 [id number] 5 PRIYANK PUENTES 2023 90 [place] ATORVASTATI N CA 20MG TAB TAKE ONE TABLET BY MOUTH AT BEDTIME FOR CHOLESTE ROL ORAL DISCONT INUED 03/25/2023 [id number] 4 PRIYANK PUENTES 2022 90 [place] BUPRENORPHI NE 5MCG/HR PATCH APPLY 1 PATCH TO SKIN EVERY 7 DAYS FOR PAIN (REMOVE PATCH BEFORE APPLYING A NEW PATCH) TRANSD ERMAL ACTIVE 07/09/2024 [id number] 5 BOY JOHNSON [place] 2024 4 [facility] CALCIUM 500MG/VITAM IN D 200UNT TAB TAKE 1 TABLET BY MOUTH TWICE DAILY FOR CALCIUM SUPPLEME NT ORAL ACTIVE 10/23/2024 [id number] 5 BOY JOHNSON [place] 2023 180 [facility] CARBOXYMETH YLCELLULOSE NA 0.5% SOLN,OPH INSTILL 1 DROP INTO EACH EYE FOUR TIMES DAILY NEEDED FOR DRY EYE OPHTHA LMIC ACTIVE 06/21/2024 [id number] 5 MEREVE,NO AH B 2023 15 [facility] GLUCOSE 4GM TAB,CHEW CHEW FOUR TABLETS BY MOUTH NEEDED FOR LOW BLOOD SUGAR ORAL SUSPEND ED 05/31/2025 [id number] 5 SILVANO HELMS RUDY 2024 60 [facility] GLUCOSE 4GM TAB,CHEW CHEW FOUR TABLETS BY MOUTH NEEDED FOR LOW BLOOD SUGAR ORAL DISCONT INUED 10/08/2024 [id number] SILVANO HELMS RUDY 2023 60 [facility] HYDROCODONE 5MG/ACETAMI NOPHEN 325MG TAB TAKE 1 TABLET BY MOUTH THREE TIMES DAILY NEEDED FOR PAIN ORAL SUSPEND ED 07/09/2024 [id number] 5 SILVANO HELMS RUDY 2024 84 [facility] HYDROCODONE 5MG/ACETAMI NOPHEN 325MG TAB TAKE 1 TABLET BY MOUTH THREE TIMES DAILY NEEDED FOR PAIN ORAL DISCONT INUED 06/11/2024 [id number] 5 KYLIE JOHNSON [place] 2024 84 [facility] HYDROCODONE 5MG/ACETAMI NOPHEN 325MG TAB TAKE 1 TABLET BY MOUTH THREE TIMES DAILY NEEDED FOR PAIN NEXT FILL 10/22/23* * ORAL DISCONT INUED BY PROVIDE R 10/24/2023 [id number] 4 PRIYANK PUENTES 2023 84 [facility] IELD HYDROCODONE 5MG/ACETAMI NOPHEN 325MG TAB TAKE 1 TABLET BY MOUTH THREE TIMES DAILY NEEDED NEXT FILL 11/27 ORAL DISCONT INUED BY PROVIDE R 11/30/2023 [id number] 4 SILVANO HELMS 2023 84 [facility] HYDROCODONE 5MG/ACETAMI NOPHEN 325MG TAB TAKE 1 TABLET BY MOUTH THREE TIMES DAILY NEEDED NEXT FILL 02/27/24 ORAL DISCONT INUED BY PROVIDE R 02/21/2024 [id number] SILVANO HELMS 2023 84 [facility] HYDROCODONE 5MG/ACETAMI NOPHEN 325MG TAB TAKE 1 TABLET BY MOUTH THREE TIMES DAILY NEEDED NEXT FILL 04/23 ORAL DISCONT INUED BY PROVIDE R 04/23/2024 [id number] 5 SILVANO HELMS 2024 84 [facility] HYDROCODONE 5MG/ACETAMI NOPHEN 325MG TAB TAKE 1 TABLET BY MOUTH THREE TIMES DAILY NEEDED FOR PAIN NEXT FILL DATE 05/23/24 ORAL DISCONT INUED 05/25/2024 [id number] 5 KYLIE JOHNSON 2024 84 [facility] HYDROCODONE 5MG/ACETAMI NOPHEN 325MG TAB TAKE 1 TABLET BY MOUTH THREE TIMES DAILY NEEDED FOR PAIN ORAL DISCONT INUED 03/27/2024 [id number] SILVANO HELMS 2023 84 [facility] HYDROCODONE 5MG/ACETAMI NOPHEN 325MG TAB TAKE 1 TABLET BY MOUTH THREE TIMES DAILY NEEDED FOR PAIN NEXT FILL 01/30/24 ORAL DISCONT INUED 01/25/2024 [id number] 4 SILVANO HELMS 2023 84 [facility] HYDROCODONE 5MG/ACETAMI NOPHEN 325MG TAB TAKE 1 TABLET BY MOUTH THREE TIMES DAILY NEEDED FOR PAIN ORAL DISCONT INUED 01/03/2024 [id number] 4 SILVANO HELMS 2023 84 [facility] HYDROCODONE 5MG/ACETAMI NOPHEN 325MG TAB TAKE 1 TABLET BY MOUTH THREE TIMES DAILY NEEDED FOR PAIN NEXT FILL 06/21/23* * ORAL DISCONT INUED BY PROVIDE R 06/21/2023 [id number] PRIYANK PUENTES 2023 84 [place] HYDROCODONE 5MG/ACETAMI NOPHEN 325MG TAB TAKE 1 TABLET BY MOUTH THREE TIMES DAILY NEEDED FOR PAIN NEXT FILL 09/24/23* * ORAL DISCONT INUED BY PROVIDE R 09/21/2023 [id number] 4 PRIYANK PUENTES 2023 84 [place] HYDROCODONE 5MG/ACETAMI NOPHEN 325MG TAB TAKE 1 TABLET BY MOUTH THREE TIMES DAILY NEEDED FOR PAIN NEXT FILL 04/24/23* * ORAL DISCONT INUED BY PROVIDE R 04/21/2023 [id number] 4 PRIYANK PUENTES 2023 84 [place] HYDROCODONE 5MG/ACETAMI NOPHEN 325MG TAB TAKE 1 TABLET BY MOUTH THREE TIMES DAILY NEEDED FOR PAIN NEXT FILL 08/27/23* * ORAL DISCONT INUED 08/29/2023 [id number] PRIYANK PUENTES 2023 84 [place] HYDROCODONE 5MG/ACETAMI NOPHEN 325MG TAB TAKE 1 TABLET BY MOUTH THREE TIMES DAILY NEEDED FOR PAIN NEXT FILL 05/24/23* * ORAL DISCONT INUED 05/25/2023 [id number] 4 PRIYANK PUENTES 2023 84 [place] INSULIN,ASP ART,HUMAN 100 UNT/ML INJ INJECT INSULIN SUBCUTAN EOUSLY THREE TIMES DAILY NEEDED ACCORDIN G TO SLIDING SCALE SUBCUT ANEOUS ACTIVE 01/02/2025 [id number] 5 SILVANO HELMS 2023 3 [facility] INSULIN,ASP ART,HUMAN 100 UNT/ML INJ INJECT INSULIN SUBCUTAN EOUSLY THREE TIMES DAILY NEEDED ACCORDIN G TO SLIDING SCALE SUBCUT ANEOUS DISCONT INUED 03/19/2024 [id number] 4 PRIYANK PUENTES 2023 3 [place] METOPROLOL TARTRATE 25MG TAB TAKE ONE-HALF TABLET BY MOUTH TWICE DAILY FOR BLOOD PRESSURE /HEART ORAL ACTIVE 10/22/2024 [id number] 5 SILVANO HELMS 2023 90 [facility] METOPROLOL TARTRATE 25MG TAB TAKE ONE-FOUR TH TABLET BY MOUTH TWICE DAILY FOR BLOOD PRESSURE /HEART ORAL DISCONT INUED (EDIT) 01/14/2024 [id number] SILVANO HELMS 2023 45 [facility] METOPROLOL TARTRATE 25MG TAB TAKE ONE TABLET BY MOUTH TWICE DAILY FOR BLOOD PRESSURE /HEART ORAL DISCONT INUED BY PROVIDE R 06/11/2024 [id number] 4 PRIYANK PUENTES 2023 180 [place] METOPROLOL TARTRATE 25MG TAB TAKE ONE TABLET BY MOUTH TWICE DAILY FOR BLOOD PRESSURE /HEART ORAL DISCONT INUED 08/01/2023 [id number] 4 PRIYANK PUENTES 2022 180 [place] MULTIVIT/OP HTH AREDS2/LUTE IN/ZEAXANTH IN CAP/TAB TAKE 1 CAPSULE BY MOUTH TWICE DAILY IN THE MORNING AND EVENING, WITH FOOD ORAL ACTIVE 04/09/2025 [id number] 5 SILVANO HELMS 2024 120 [facility] MULTIVIT/OP HTH AREDS2/LUTE IN/ZEAXANTH IN CAP/TAB TAKE 1 CAPSULE BY MOUTH TWICE DAILY IN THE MORNING AND EVENING, WITH FOOD ORAL DISCONT INUED 05/22/2024 [id number] 4 PRIYANK PUENTES 2023 120 [place] NALOXONE HCL 4MG/SPRAY SOLN,SPRAY, NASAL INSTILL 1 SPRAY ONE NOSTRIL ONE TIME NEEDED FOR OPIOID OVERDOSE CALL 911 WITH ADMINIST RATION. REPEAT WITH SECOND DEVICE IF SYMPTOMS RETURN NASAL 01/06/2024 [id number] 4 SILVANO HELMS 2023 2 [facility] NALOXONE HCL 4MG/SPRAY SOLN,SPRAY, NASAL INSTILL 1 SPRAY ONE NOSTRIL ONE TIME PRN NASAL ACTIVE TONJA VELÁZQUEZ 2023 [facility] OTHER CAP/TAB FISH OIL, 1000MG po EVERY DAY ACTIVE PRIYANK PUENTES 2007 [place] SERTRALINE HCL 100MG TAB TAKE ONE TABLET BY MOUTH TWICE DAILY ORAL ACTIVE 06/11/2024 [id number] 5 PRIYANK PUENTES 2023 180 [place] SERTRALINE HCL 100MG TAB TAKE ONE TABLET BY MOUTH TWICE DAILY ORAL DISCONT INUED 11/07/2023 [id number] 4 PRIYANK PUENTES 2022 180 [place] TAMSULOSIN HCL 0.4MG CAP TAKE ONE CAPSULE BY MOUTH ONCE DAILY FOR ENLARGED PROSTATE ORAL ACTIVE 10/08/2024 [id number] SILVANO HELMS 2023 90 [facility] ZOLPIDEM TARTRATE 10MG TAB TAKE ONE TABLET BY MOUTH BEDTIME NEEDED FOR SLEEP ORAL DISCONT INUED (EDIT) 10/24/2023 [id number] 4 PRIYANK PUENTES 2023 30 [place] ZOLPIDEM TARTRATE 10MG TAB TAKE ONE TABLET BY MOUTH BEDTIME NEEDED FOR SLEEP ORAL DISCONT INUED 09/21/2023 [id number] PRIYANK PUENTES 2023 30 [place] ZOLPIDEM TARTRATE 10MG TAB TAKE ONE TABLET BY MOUTH BEDTIME NEEDED FOR SLEEP ORAL DISCONT INUED 08/29/2023 [id number] 4 PRIYANK PUENTES 2023 30 [place] ZOLPIDEM TARTRATE 10MG TAB TAKE ONE TABLET BY MOUTH BEDTIME NEEDED FOR SLEEP ORAL DISCONT INUED 06/21/2023 [id number] PRIYANK PUENTES 2023 30 [place] ZOLPIDEM TARTRATE 10MG TAB TAKE ONE TABLET BY MOUTH BEDTIME NEEDED FOR SLEEP ORAL DISCONT INUED 05/31/2023 [id number] 4 PRIYANK PUENTES 2023 30 [place] ZOLPIDEM TARTRATE 10MG TAB TAKE ONE TABLET BY MOUTH BEDTIME NEEDED FOR SLEEP ORAL DISCONT INUED 04/27/2023 [id number] 4 PRIYANK PUENTES 2023 30 [place] ZOLPIDEM TARTRATE 5MG TAB TAKE ONE TABLET BY MOUTH AT BEDTIME NEEDED FOR SLEEP ORAL ACTIVE 08/01/2024 [id number] 5 SILVANO HELMS 2023 30 [facility] ZOLPIDEM TARTRATE 5MG TAB TAKE ONE TABLET BY MOUTH AT BEDTIME NEEDED FOR SLEEP ORAL DISCONT INUED BY VIOLETA Nash 11/22/2023 [id number] 4 KYLIE JOHNSON 2023 30 [facility] ZOLPIDEM TARTRATE 5MG TAB TAKE ONE TABLET BY MOUTH AT BEDTIME NEEDED FOR SLEEP ORAL DISCONT INUED 02/21/2024 [id number] 4 SILVANO HELMS 2023 30 [facility] ZOLPIDEM TARTRATE 5MG TAB TAKE ONE TABLET BY MOUTH AT BEDTIME NEEDED FOR SLEEP ORAL DISCONT INUED 01/25/2024 [id number] 4 SILVANO HELMS 2023 30 [facility] Allergies, Adverse Reactions, Alerts Combined list of allergies from Department of Defense and Veterans Affairs facilities. It does not include entries that were removed or entered in error. Substance Category Reaction Severity Reaction type Status Date Reported Comments Source CONTRAST MEDIA Propensity to adverse reactions to drug (finding) active 4 [facility] CONTRAST MEDIA, OTHER Propensity to adverse reactions to drug (finding) active 4 [facility] GUAFENESIN DEXTROMETHOR MOREJON SYRUP Propensity to adverse reactions to drug (finding) Urticaria active 0 [facility] RADIOLOGICAL /CONTRAST MEDIA Propensity to adverse reactions to drug (finding) active 5 [facility] Immunizations Combined list of available immunizations from the Department of Defense and Veterans Affairs facilities. Immunization Series Date Given Administered By Site Reaction Lot Number CVX Code Drug Habilitative Interventionist Status Comments Source RSV, BIVALENT, PROTEIN SUBUNIT RSVPREF, DILUENT RECONSTITUTED , 0.5 ML, PF 2023 DAVID TRINID[place] RIGHT DELTO ID [id number] 305 complet ed [facility] COVID-19 (MODERNA), MRNA, LNP-S, PF, 50 MCG/0.5 ML (AGES 12+ YEARS) 2023 DAVID TRINIDAD LEFT DELTO ID [id number] 312 complet ed [facility] INFLUENZA, HIGH-DOSE, TRIVALENT, PF 2023 DAVID TRINIDAD RIGHT DELTO ID [id number] 135 complet ed [facility] INFLUENZA, UNSPECIFIED FORMULATION 2022 88 complet ed [facility] TDAP 2022 [employer] F[employer]ER SA GONZALEZ LEFT DELTO ID [id number] 115 complet ed [facility] COVID-19, MRNA, LNP-S, BIVALENT BOOSTER, PF, 30 MCG/0.3 ML DOSE 1 2021 300 complet ed [facility] INFLUENZA, UNSPECIFIED FORMULATION 2021 88 complet ed [facility] ZOSTER RECOMBINANT 2 2020 187 complet ed [place] COVID-19 (PFIZER), MRNA, LNP-S, PF, 30 MCG/0.3 ML DOSE 3 2020 208 complet ed [facility] INFLUENZA, UNSPECIFIED FORMULATION 2020 88 complet ed [facility] ZOSTER RECOMBINANT 1 2020 187 complet ed [place] COVID-19 (PFIZER), MRNA, LNP-S, PF, 30 MCG/0.3 ML DOSE 2 2020 208 complet ed [facility] COVID-19 (PFIZER), MRNA, LNP-S, PF, 30 MCG/0.3 ML DOSE 1 2020 208 complet ed [facility] INFLUENZA, UNSPECIFIED FORMULATION 2019 88 complet ed [facility] INFLUENZA, SEASONAL, INJECTABLE 2018 141 complet ed cvs [facility] INFLUENZA, SEASONAL, INJECTABLE 2017 141 complet ed outside pcp [facility] FLU,3 YRS (HISTORICAL) 2015 88 complet ed cvs [facility] PNEUMOCOCCAL CONJUGATE PCV 13 2015 133 complet ed [place] FLU,3 YRS (HISTORICAL) 2014 88 complet ed drugstore [facility] FLU,3 YRS (HISTORICAL) 2014 88 complet ed non va pcp [facility] FLU,3 YRS (HISTORICAL) 2012 88 complet ed [facility] ZOSTER LIVE 2012 121 complet ed [place] DTAP, UNSPECIFIED FORMULATION 2011 107 complet ed approx mo [facility] FLU,3 YRS (HISTORICAL) 2011 88 complet ed [facility] FLU,3 YRS (HISTORICAL) 2010 88 complet ed Site: Right Deltoid [facility] FLU,3 YRS (HISTORICAL) 2009 88 complet ed [place] [facility] [place] NOVEL INFLUENZA-H1N 1-09, ALL FORMULATIONS 2009 128 complet ed [facility] (523) PNEUMOCOCCAL, UNSPECIFIED FORMULATION 2009 109 complet ed [facility] FLU,3 YRS (HISTORICAL) 2008 88 complet ed [facility] (523) FLU,3 YRS (HISTORICAL) [address] Harley Souza [facility] FLU,3 YRS (HISTORICAL) 2006 88 complet ed Site: Left Deltoid [facility] TD(ADULT) UNSPECIFIED FORMULATION 2004 MARLA BAKER 139 comple t ed [facility] I[place] Results Combined list of recent chemistry, hematology and other laboratory results from Department of Defense and Veterans Affairs, ranging from 15 months to all on record, depending upon the facility. Order Name Results Value Reference Range Date Interpretation Specimen Comments Source VITAMIN B12 COBALAMIN (VITAMIN B12) [MASS/VOLUM E] IN SERUM OR PLASMA 512 pg/mL 200 - 900 03/17 Specimen Type: SERUM No comment entered. Ordering Provider: YENI PUENTES Report Released Date/Time: Jun 11, 2023 11:06 AM Reporting Lab: [facility] [address] [facility] [address] Performing Lab: [address] [address] [place] FERRITIN FERRITIN [MASS/VOLUM E] IN SERUM OR PLASMA 57 ng/mL 20 - 300 03/17 Specimen Type: SERUM No comment entered. Ordering Provider: YENI PUENTES Report Released Date/Time: Jun 11, 2023 11:06 AM Reporting Lab: [facility] [address] [facility] [address] Performing Lab: [address] [address] [place] TSH THYROTROPIN [UNITS/VOLU ME] IN SERUM OR PLASMA 3.25 u[IU]/ mL 0.35 - 5.00 03/17 Specimen Type: SERUM No comment entered. Ordering Provider: YENI PUENTES Report Released Date/Time: Jun 11, 2023 11:06 AM Reporting Lab: [facility] [address] [address] Performing Lab: [address] [address] [place] HEMOGLOBI N A1C PANEL HEMOGLOBIN A1C/HEMOGLO BIN.TOTAL IN BLOOD BY HPLC 7.4 4.0 - 5.6 03/17 H Specimen Type: BLOOD Comment: Values obtained from A1C measurement s can vary. For atypical A1C assays, a reported value of 7.0 could actually be between 6.72 and 7.28 if measured by a reference method. A reported value of 9.0 could actually be between 8.73 and 9.27. Ref: http://www. ngsp.org/[place] Pdata.asp Ordering Provider: YENI PUENTES Report Released Date/Time: Jun 11, 2023 11:06 AM Reporting Lab: [facility] [address] [facility] [address] Performing Lab: [facility] [address] [address] [place] MICROALBU MIN CREATININ E RATIO PANEL MICROALBUMI N/CREATININ E [MASS RATIO] IN URINE 155.3 mg/g 0 - 29.9 03/17 H Specimen Type: URINE No comment entered. Ordering Provider: YENI PUENTES Report Released Date/Time: Jun 11, 2023 11:06 AM Reporting Lab: [facility] [address] [facility] [address] Performing Lab: [facility] [address] [address] [place] MICROALBU MIN CREATININ E RATIO PANEL MICROALBUMI N [MASS/VOLUM E] IN URINE 41.2 mg/dL 03/17 Specimen Type: URINE No comment entered. Ordering Provider: YENI PUENTES Report Released Date/Time: Jun 11, 2023 11:06 AM Reporting Lab: [facility]ITALRUNIV[facility]OSPITALN [address] [address] Performing Lab: [facility]ITALRMARY [facility]ENTERTRN [place] [facility] [address] [facility] [address] [place] MICROALBU MIN CREATININ E RATIO PANEL CREATININE [MASS/VOLUM E] IN URINE 265.23 mg/dL 03/17 Specimen Type: URINE No comment entered. Ordering Provider: YENI PUENTES Report Released Date/Time: Jun 11, 2023 11:06 AM Reporting Lab: [facility]ITALRM[facility]ENTERTRN [place] [facility] [address] [facility] [address] Performing Lab: [facility]ITALRUNIV[facility] HOSPITALN [facility]USE[facility] [address] [facility] [address] [place] CALCIUM CALCIUM [MASS/VOLUM E] IN SERUM OR PLASMA 9.3 mg/dL 8.5 - 10.2 03/17 Specimen Type: SERUM No comment entered. Ordering Provider: YENI PUENTES Report Released Date/Time: Jun 11, 2023 11:06 AM Reporting Lab: [facility] [address] [facility] [address] Performing Lab: [facility] [address] [facility] [address] [place] LIPID PANEL FASTING CHOLESTEROL [MASS/VOLUM E] IN SERUM OR PLASMA 113 mg/dL 03/17 Specimen Type: SERUM No comment entered. Ordering Provider: YENI PUENTES Report Released Date/Time: Jun 11, 2023 11:06 AM Reporting Lab: [facility]TRN [facility] CENTERUSETS [facility] [address] [facility] [address] Performing Lab: [facility]ITALRMARY [facility]ENTERTRN [facility] CENTERUSETS [facility] [address] [facility] [address] [place] LIPID PANEL FASTING TRIGLYCERID E [MASS/VOLUM E] IN SERUM OR PLASMA 141 mg/dL 0 - 150 03/17 Specimen Type: SERUM No comment entered. Ordering Provider: YENI PUENTES Report Released Date/Time: Jun 11, 2023 11:06 AM Reporting Lab: [facility]ITALRMARY [facility]ENTERTRN [facility]ENTERUSE[address] [address] Performing Lab: [facility]ENTERUSE[address] [address] [place] LIPID PANEL FASTING CHOLESTEROL IN LDL [MASS/VOLUM E] IN SERUM OR PLASMA BY CALCULATION 57 mg/dL 0 - 129 03/17 Specimen Type: SERUM No comment entered. Ordering Provider: YENI PUENTES Report Released Date/Time: Jun 11, 2023 11:06 AM Reporting Lab: [facility] [address] [facility] [address] Performing Lab: [facility] [address] [address] [place] LIPID PANEL FASTING CHOLESTEROL .TOTAL/CHOL ESTEROL IN HDL [MASS RATIO] IN SERUM OR PLASMA 4.0 03/17 Specimen Type: SERUM No comment entered. Ordering Provider: YENI PUENTES Report Released Date/Time: Jun 11, 2023 11:06 AM Reporting Lab: [facility] [address] [address] Performing Lab: [facility] [address] [address] [place] LIPID PANEL FASTING CHOLESTEROL IN HDL [MASS/VOLUM E] IN SERUM OR PLASMA 28 mg/dL 40 - 60 03/17 L Specimen Type: SERUM No comment entered. Ordering Provider: YENI PUENTES Report Released Date/Time: Jun 11, 2023 11:06 AM Reporting Lab: [facility] [address] [address] Performing Lab: [facility]ENTERUSE[address] [address] [place] LIVER FUNCTION PROTEIN [MASS/VOLUM E] IN SERUM OR PLASMA 7.2 g/dL 6.0 - 8.3 03/17 Specimen Type: SERUM No comment entered. Ordering Provider: YENI PUENTES Report Released Date/Time: Jun 11, 2023 11:06 AM Reporting Lab: [facility]ITALRMARY [facility]ENTERTRN [facility]ENTERUSE[address] [address] Performing Lab: [facility] [address] [address] [place] LIVER FUNCTION ALBUMIN [MASS/VOLUM E] IN SERUM OR PLASMA 3.9 g/dL 3.5 - 5.0 03/17 Specimen Type: SERUM No comment entered. Ordering Provider: YENI PUENTES Report Released Date/Time: Jun 11, 2023 11:06 AM Reporting Lab: [facility] [place] [facility] [address] [facility] [address] Performing Lab: [place] [facility] [facility] [facility] CENTERUSETS [address] [address] [place] LIVER FUNCTION ALKALINE PHOSPHATASE [ENZYMATIC ACTIVITY/VO LUME] IN SERUM OR PLASMA 86 U/L 40 - 150 03/17 Specimen Type: SERUM No comment entered. Ordering Provider: YENI PUENTES Report Released Date/Time: Jun 11, 2023 11:06 AM Reporting Lab: [facility] [place] [facility] [address] [facility] [address] Performing Lab: [facility] [place] [address] [address] [place] LIVER FUNCTION ASPARTATE AMINOTRANSF ERASE [ENZYMATIC ACTIVITY/VO LUME] IN SERUM OR PLASMA 44 U/L 5 - 34 03/17 H Specimen Type: SERUM No comment entered. Ordering Provider: YENI PUENTES Report Released Date/Time: Jun 11, 2023 11:06 AM Reporting Lab: [facility] [place] [facility] [address] [facility] [address] Performing Lab: [facility] [place] [address] [address] [place] LIVER FUNCTION ALANINE AMINOTRANSF ERASE [ENZYMATIC ACTIVITY/VO LUME] IN SERUM OR PLASMA 28 U/L 03/17 Specimen Type: SERUM No comment entered. Ordering Provider: YENI PUENTES Report Released Date/Time: Jun 11, 2023 11:06 AM Reporting Lab: [place] [facility] [place] [address] [address] Performing Lab: [facility]OSPITALRL WSTRN [facility] CENTERUSETS [address] [address] [place] LIVER FUNCTION BILIRUBIN.T OTAL [MASS/VOLUM E] IN SERUM OR PLASMA 0.4 mg/dL 0.2 - 1.2 03/17 Specimen Type: SERUM No comment entered. Ordering Provider: YENI PUENTES Report Released Date/Time: Jun 11, 2023 11:06 AM Reporting Lab: [facility] [address] [facility] [address] Performing Lab: [facility] [address] [address] [place] BASIC METABOLIC PANEL (fasting) UREA NITROGEN [MASS/VOLUM E] IN SERUM OR PLASMA 39 mg/dL 7 - 25 03/17 H Specimen Type: SERUM No comment entered. Ordering Provider: YENI PUENTES Report Released Date/Time: Jun 11, 2023 11:06 AM Reporting Lab: [facility] [address] [address] Performing Lab: [facility] [address] [address] [place] BASIC METABOLIC PANEL (fasting) GLUCOSE [MASS/VOLUM E] IN SERUM OR PLASMA 121 mg/dL 65 - 100 03/17 H Specimen Type: SERUM No comment entered. Ordering Provider: YENI PUENTES Report Released Date/Time: Jun 11, 2023 11:06 AM Reporting Lab: [facility] [address] [address] Performing Lab: [facility] [address] [address] [place] BASIC METABOLIC PANEL (fasting) SODIUM [MOLES/VOLU ME] IN SERUM OR PLASMA 139 mmol/L 135 - 145 03/17 Specimen Type: SERUM No comment entered. Ordering Provider: YENI PUENTES Report Released Date/Time: Jun 11, 2023 11:06 AM Reporting Lab: [facility] [address] [address] Performing Lab: [facility] [address] [address] [place] BASIC METABOLIC PANEL (fasting) POTASSIUM [MOLES/VOLU ME] IN SERUM OR PLASMA 4.2 mmol/L 3.5 - 5.0 03/17 Specimen Type: SERUM No comment entered. Ordering Provider: YENI PUENTES Report Released Date/Time: Jun 11, 2023 11:06 AM Reporting Lab: [facility] [address] [facility] [address] Performing Lab: [facility] [address] [facility] [address] [place] BASIC METABOLIC PANEL (fasting) CHLORIDE [MOLES/VOLU ME] IN SERUM OR PLASMA 102 mmol/L 100 - 110 03/17 Specimen Type: SERUM No comment entered. Ordering Provider: YENI PUENTES Report Released Date/Time: Jun 11, 2023 11:06 AM Reporting Lab: [facility] [address] [facility] [address] Performing Lab: [facility] [address] [address] [place] BASIC METABOLIC PANEL (fasting) CARBON DIOXIDE, TOTAL [MOLES/VOLU ME] IN SERUM OR PLASMA 28 meq/L 20 - 30 03/17 Specimen Type: SERUM No comment entered. Ordering Provider: YENI PUENTES Report Released Date/Time: Jun 11, 2023 11:06 AM Reporting Lab: [facility] [address] [facility] [address] Performing Lab: [facility] [address] [facility] [address] [place] BASIC METABOLIC PANEL (fasting) CREATININE [MASS/VOLUM E] IN SERUM OR PLASMA 1.83 mg/dL 0.50 - 1.40 03/17 H Specimen Type: SERUM No comment entered. Ordering Provider: YENI PUENTES Report Released Date/Time: Jun 11, 2023 11:06 AM Reporting Lab: [facility] [address] [facility] [address] Performing Lab: [facility] [address] [address] [place] BASIC METABOLIC PANEL (fasting) GLOMERULAR FILTRATION RATE/1.73 SQ M.PREDICTED [VOLUME RATE/AREA] IN SERUM, PLASMA OR BLOOD BY CREATININE- BASED FORMULA (CKD-EPI 2020) 36 mL/min 60 03/17 L Specimen Type: SERUM No comment entered. Ordering Provider: YENI PUENTES Report Released Date/Time: Jun 11, 2023 11:06 AM Reporting Lab: [facility] [place] [facility] [address] [facility] [address] Performing Lab: [facility] [address] [facility] [address] [employer] URIC ACID URATE [MASS/VOLUM E] IN SERUM OR PLASMA 6.4 mg/dL 3.5 - 7.2 03/17 Specimen Type: SERUM No comment entered. Ordering Provider: YENI PUENTES Report Released Date/Time: Jun 11, 2023 11:06 AM Reporting Lab: [facility] [place] [facility] [address] [facility] [address] Performing Lab: [facility] [place] [facility] [address] [facility] [address] [employer] Vital Signs Combined list of inpatient and outpatient Vital Signs from Department of Defense and Veterans Affairs, ranging from 12 months to all on record, depending upon the facility. Vital Sign Value Date Comments Source SYSTOLIC BLOOD PRESSURE 136 05/30/2024 09:30:00 [facility] DIASTOLIC BLOOD PRESSURE 68 05/30/2024 09:30:00 [facility] PULSE OXIMETRY 97 05/30/2024 09:30:00 [facility] PAIN 6 05/30/2024 09:30:00 [facility] TEMPERATURE 97.7 05/30/2024 09:30:00 [facility] PULSE 52 05/30/2024 09:30:00 [facility] RESPIRATION 18 05/30/2024 09:30:00 [facility] [place] SYSTOLIC BLOOD PRESSURE 138 05/09/2024 14:00:00 [facility] DIASTOLIC BLOOD PRESSURE 62 05/09/2024 14:00:00 [facility] PULSE OXIMETRY 96 05/09/2024 14:00:00 [facility] [place] PAIN 3 05/09/2024 14:00:00 [facility] PULSE 54 05/09/2024 14:00:00 [facility] [place] [facility] RESPIRATION 16 05/09/2024 14:00:00 [facility] [place] SYSTOLIC BLOOD PRESSURE 114 02/29/2024 11:30:00 [place] DIASTOLIC BLOOD PRESSURE 66 02/29/2024 11:30:00 [place] PULSE OXIMETRY 98 02/29/2024 11:30:00 [place] PAIN 2 02/29/2024 11:30:00 [place] TEMPERATURE 97.6 02/29/2024 11:30:00 [place] PULSE 52 02/29/2024 11:30:00 [place] RESPIRATION 16 02/29/2024 11:30:00 [facility] [place] SYSTOLIC BLOOD PRESSURE 134 01/22/2024 15:00:00 [facility] DIASTOLIC BLOOD PRESSURE 68 01/22/2024 15:00:00 [facility] PULSE OXIMETRY 97 01/22/2024 15:00:00 [facility] [place] [facility] PAIN 3 01/22/2024 15:00:00 [facility] [place] [facility] TEMPERATURE 97.6 01/22/2024 15:00:00 [facility] [place] [facility] PULSE 66 01/22/2024 15:00:00 [facility] [place] [facility] RESPIRATION 18 01/22/2024 15:00:00 [facility] [place] [facility] SYSTOLIC BLOOD PRESSURE 136 11/22/2023 11:00:00 [facility] [place] [facility] DIASTOLIC BLOOD PRESSURE 70 11/22/2023 11:00:00 [facility] PULSE OXIMETRY 98 11/22/2023 11:00:00 [facility] [place] [facility] PAIN 4 11/22/2023 11:00:00 [facility] [place] [facility] TEMPERATURE 97.7 11/22/2023 11:00:00 [facility] [place] PULSE 68 11/22/2023 11:00:00 [facility] [place] [facility] RESPIRATION 16 11/22/2023 11:00:00 [facility] [place] Encounters Combined list of: 1) Encounters from Department of Veterans Affairs facilities going backup to the last 18 months, not all VA inpatient encounters are included; 2) Encounters from the Department of [facility] facilities going backup to 280 months. 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 Michelle LO AVID 01/18 [facility] Encounter [id number] 01/18 [facility] Encounter [id number] 01/26 [facility] Out[facility] Encounter [id number] JESSI BENSON 01/29 [facility] Out[facility] Encounter [id number] 02/05 [facility] Out[facility] Encounter [id number] 02/14 [facility] [place] HEARING AID REPAIR/MOD IFYING [id number] Diagnos is: ICD-10- CM Z46.1 Encount er for fitting and adjustm ent of hearing aid RICARDO CARMEN 02/23 [place] [facility] Out[facility] Encounter [id number] 03/14 [facility] Out[facility] Encounter [id number] 03/29 [facility] Out[facility] Encounter [id number] Michelle LO 04/06 [facility] Out[facility] Encounter [id number] 04/07 [facility] [place] HEARING A[place] REPAIR/MOD IFYING [id number] Diagnos is: ICD-10- CM Z46.1 Encount er for fitting and adjustm ent of hearing aid RICARDO CARMEN L 05/04 [facility] [place] OFFICE O/P EST LOW 20 MIN [id number] Diagnos is: ICD-10- CM K86.1 Other chronic pancrea SAM Linton 06/10 [place] [facility] Out[facility] Encounter [id number] 06/10 [facility] [place] HEARING A[place] REPAIR/MOD IFYING [id number] Diagnos is: ICD-10- CM Z46.1 Encount er for fitting and adjustm ent of hearing aid RICARDO CARMEN L 07/05 [place] [facility] Out[facility] Encounter [id number] 07/26 [facility] HC PRO PHONE CALL 21-30 MIN [id number] 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 , left knee MATTE,MADINA FRIAS 08/06 [facility] HHS/HOSPIC E OF RN EA 15 MIN [id number] Diagnos is: ICD-10- CM R68.89 Other general symptom s and signs Jazlyn MARIA 08/15 [facility] RN CARE EA 15 MIN HH/HOSPICE [id number] 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 , left knee MATTE,MADINA RODRIGUEZ 08/15 [facility] Outpatient Encounter [id number] 08/20 [facility]counter [id number] 09/18 [facility] MEASURE BLOOD OXYGEN LEVEL [id number] Diagnos is: ICD-10- CM C67.9 Maligna nt neoplas m of bladder , unspeci fied BELIATE,MADINA RODRIGUEZ 09/18 [facility] [place] HEARING AID REPAIR/MOD IFYING [id number] Diagnos is: ICD-10- CM Z46.1 Encount er for fitting and adjustm ent of hearing aid RICARDO CARMEN 09/20 [place] [facility] Out[facility] Encounter [id number] 09/24 [facility] En[facility] [id number] SAM PUENTES 09/27 [facility] Out[facility] Encounter [id number] 1. Diagnos is: ICD-10- CM C67.9 Maligna nt neoplas m of bladder , unspeci fied SCOOTER,[place] ICA RUDY 10/07 [facility] Out[facility] Encounter [id number] 10/08 [facility] Encounter [id number] 10/10 [facility] HHCP-SERV OF OT,EA 15 MIN [id number] 1. Diagnos is: ICD-10- CM R26.9 Unspeci fied abnorma lities of gait and mobilit y KELBY,CAT HY L 10/14 [facility] ELECTROCAR DIOGRAM REPORT [id number] Diagnos is: ICD-10- CM Z13.6 Encount er for screeni ng for cardiov ascular disorde rs KRUPA WEBB A 10/15 [place] [facility] [place] ELECTROCAR DIOGRAM TRACING [id number] Diagnos is: ICD-10- CM R00.1 Bradyca rdia, unspeci fied DINH RAMOS YS 10/15 [place] [facility] ELECTROCAR DIOGRAM TRACING [id number] Diagnos is: ICD-10- CM R00.1 Bradyca rdia, unspeci fied GRUPODINH SANTAMARIA YS 10/15 [facility] Outpatient Encounter [id number] 1. 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 CELE VELÁZQUEZ 10/16 [place] [facility] CASE MANAGEMENT [id number] Diagnos is: ICD-10- CM Z65.9 Problem related to unspeci fied psychos ocial circums BIPIN Menendez RR NIKO 10/17 [facility] [place] [place] [facility] QNHP OL DIG ASSMT&MGMT 21+ [id number] Diagnos is: ICD-10- CM Z79.899 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 CELE VELÁZQUEZ 10/18 [facility] [place] [place] Outpatient Encounter [id number] 10/22 [facility] HHCP-SERV OF OT,EA 15 MIN [id number] Diagnos is: ICD-10- CM R26.9 Unspeci fied abnorma lities of gait and mobilit y LAMA,CAT HY L 10/23 [facility] [place] [place] PRO PHONE CALL 5-10 MIN [id number] Diagnos is: ICD-10- CM Z71.89 Other specifi ed preparole counseling aide ing BIPIN BORJA TERI NIKO 10/24 [facility] [place] [id number] Diagnos is: ICD-10- CM Z71.3 Dietary preparole counseling aide ing and surveil MARIPOSA Franklin 10/24 [facility] Outpatient Encounter [id number] 10/25 [facility] SELF CARE MNGMENT TRAINING [id number] Diagnos is: ICD-10- CM C67.9 Maligna nt neoplas m of bladder , unspeci fied MADINA TRINIDAD 10/25 [facility] Outpatient Encounter [id number] 10/30 [facility] RN CARE EA 15 MIN HH/HOSPICE [id number] 1. 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 , left knee MADINA TRINIDAD 10/30 [facility] Outpatient Encounter [id number] [facility] Outpatient Encounter [id number] [facility] SELF CARE MNGMENT TRAINING [id number] Diagnos is: ICD-10- CM 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 JEROME TRINIDADKayla FRIAS 11/07 [facility] En[facility] [id number] 11/18 [facility] HC PRO PHONE CALL 5-10 MIN [id number] Diagnos is: ICD-10- CM R26.9 Unspeci fied abnorma lities of gait and mobilit y KELBY,CAT HY L 11/20 [facility] [place] ADMIN [id number] JEROME TRINIDADKayla FRIAS 11/21 [facility] SELF CARE MNGMENT TRAINING [id number] Diagnos is: ICD-10- CM 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 JEROME TRINIDADKayla FRIAS 11/21 [facility] Out[facility] Encounter [id number] 11/24 [facility] HEARING AID REPAIR/MOD IFYING [id number] Diagnos is: ICD-10- CM Z46.1 Encount er for fitting and adjustm ent of hearing aid COREY JAIN L 11/26 [facility] COMPRE OPH EXAM EST PT 1/ [id number] Diagnos is: ICD-10- CM 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, bi, 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 MERHAR,ASHA H B 11/27 [facility] CPTR OPHTH DX IMG POST SEGMT [id number] [id number] Diagnos is: ICD-10- CM 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 12/03 [facility] Encounter [id number] [id number] 12/10 [facility] ADMN SARSCOV2 VACC 1 DOSE [id number] MADINA TRINIDAD 12/10 [facility] SELF CARE MNGMENT TRAINING [id number] Diagnos is: ICD-10- CM I11.9 Hyperte nsive heart disease without heart failure MADINA TRINIDAD 12/10 [facility] Out[facility] Encounter [id number] 12/12 [facility] QNHP OL DIG ASSMT&MGMT 21+ [id number] 1. Diagnos is: ICD-10- CM Z79.899 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 CELE VELÁZQUEZ 12/13 [facility] Out[facility] Encounter [id number] 12/24 [facility] EVAL AUD [place] 1ST HOUR [id number] 1. Diagnos is: ICD-10- CM H90.3 Sensori neural hearing loss, bilater Kenn Pereira 01/08 [facility] Out[facility] Encounter [id number] 01/15 [facility] [facility] Encounter [id number] 1.01/21 [facility] [place] ADMIN [id number] 1. 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 Diagnos is: ICD-10- CM I25.10 Athscl heart disease of [place] coronar y artery w/o ang pctrs MADINA TRINIDAD 02/21 [facility] Q[facility]P OL DIG ASSMT&MGMT 21+ [id number] 1. Diagnos is: ICD-10- CM Z79.899 Other usp (curren t) drug therapy MELANIACELE Jazlyn 02/25 [facility] Out[facility] Encounter [id number] 02/25 [facility] SELF CARE MNGMENT TRAINING [id number] Diagnos is: ICD-10- CM I25.10 Athscl heart disease of [place] coronar y artery w/o ang pctrs MADINA TRINIDAD 02/28 [facility] [place] HEARING AID REPAIR/MOD IFYING [id number] Diagnos is: ICD-10- CM Z46.1 Encount er for fitting and adjustm ent of hearing aid RICARDO CARMEN L 02/28 [place] [facility] Outpatient Encounter [id number] [facility] SELF CARE MNGMENT TRAINING [id number] [id number] Diagnos is: ICD-10- CM 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 MADINA TRINIDAD 03/14 [facility] EAR IMPRESSION [id number] [id number] Diagnos is: ICD-10- CM Z46.1 Encount er for fitting and adjustm ent of hearing aid COREY JAIN L 03/17 [facility] Out[facility] Encounter [id number] 03/18 [facility] Out[facility] Encounter [id number] 03/21 [facility] [place] [place] [facility] [place] HEARING AID REPAIR/MOD IFYING [id number] Diagnos is: ICD-10- CM Z46.1 Encount er for fitting and adjustm ent of hearing aid SANTANA KAT I 04/11 [place] [facility] HEARING AID REPAIR/MOD IFYING [id number] Diagnos is: ICD-10- CM Z46.1 Encount er for fitting and adjustm ent of hearing aid RICARDO CARMEN L 05/06 [facility] MEASURE BLOOD OXYGEN LEVEL [id number] [id number] Diagnos is: ICD-10- CM 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 MADINA TRINIDAD 05/09 [facility] OFFICE O/P EST LOW 20 MIN [id number] Diagnos is: ICD-10- CM 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), left tibia ROHIT ARAGON RLES D 05/22 [facility] Outpatient Encounter [id number] 05/29 [facility] SELF CARE MNGMENT TRAINING [id number] Diagnos is: ICD-10- CM 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 MADINA TRINIDAD 05/30 [facility] Out[facility] Encounter [id number] 05/30 [facility] NQHP OL DIG ASSMT&MGMT 21+ [id number] Diagnos is: ICD-10- CM Z79.899 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 CELE VELÁZQUEZ 06/02 [facility] [place] [facility] [place] [facility] Outpatient [facility]counter [id number] 06/03 [facility] [place] [facility] [place] Outpatient [facility]counter [id number] 06/04 [facility] Outpatient Encounter [id number] 06/09 [facility] [place] [facility] [place] Outpatient Encounter [id number] Diagnos is: ICD-10- CM G89.29 Other chronic pain MARY DENNISON 06/09 [facility] [place] [place] [facility] [place] Outpatient Encounter [id number] 06/09 [facility] [place] [place] [facility] Social History Combined list of available smoking, tobacco, and other social history from Department of Defense and Veterans Affairs facilities. Social History Type Response Date Comment Source Tobacco smoking status [facility] FORMER USER 06/11/2023 [place] [facility] of [facility]/11[facility]2023 [place] of tobacco use [facility] [place] [facility] [place] [facility] History of tobacco use [place] NEVER USED 02/18/2021 [place] History of tobacco use [place] NEVER USED 01/13/2020 [place] History of tobacco use QUIT TOBACCO USE > 7 YEARS AGO 05/09/2017 does not smoke [place] History of tobacco use LIFETIME NON-TOBACCO USER 07/18/2016 [place] History of tobacco use QUIT TOBACCO USE > 7 YEARS AGO 05/11/2015 [place] History of tobacco use HISTORY OF SMOKING 01/27/20051986 [place] History of tobacco use HISTORY OF SMOKING 02/23/2004 stopped tobacco 17 years ago [place] History of tobacco use NON-TOBACCO USER 02/14/2001 quit x 14yrs. [place] Plan of Care List of future care activities from [facility] facilities. Additional future care activities may be listed in the Assessment and Plan section. Date/Time Care Activity Care Activity Detail Facili ty 07/23/2024 AMBULATORY - MEDICINE AMBULATORY - MEDICI [facility] Advance Directives List of completed, amended, or rescinded Advance Directives on record at [facility] facilities. An actual copy of the Directive is not included. Date Advance Directive Provider Source 06/28/2009 ADVANCE DIRECTIVE MANUELITO MORELOS
--- OUTSIDE RECORDS SUMMARY | 2024-06-10 11:20 | XMS_ITS ---
Author Organization [facility] Address [address] [place] [address] Phone Care Team Providers Care Flavoring Oil Filterer Name Role Phone William Mcghee DO Primary Care Provider [phone] [facility] Unavailable [phone] Plan of Treatment No Plan of Treatment Recorded Assessments Includes: Assessments for all patient encounters No Assessments Recorded Medical Equipment - Implanted Devices Includes: Current and historical Devices No Medical Equipment Recorded Medications Includes: Current and historical Medications Current Medications (continue as prescribed) Hydrocodone-Acetaminophen Oral Tablet 10/31/2022 Pro vider: Diagnosis: Last Documented On 3 8:26AM By Bright Sanchez ; [facility] Medications Administered Includes: Administered Medications in patient's chart No Administered Medications Recorded Results Includes: Results from 06/11/2023 through 06/10/2024 No Results Recorded For Specified Dates History of Present Illness History of Present Illness not supported for this document type No History of Present Illness Recorded Social History No Social History Recorded - Smoking Status Unknown Medical History Includes: Medical History in patient's chart No Medical History Recorded Family History Includes: Family History in patient's chart No Family History Recorded Review of Systems Review of Systems not supported for this document type No Review of Systems Recorded Mental Status No Mental Status Recorded Functional Status No Functional Status Recorded Physical Exam Physical Exam not supported for this document type No Physical Exam Recorded Allergies Includes: Active, inactive, and resolved Allergies Substance Type Reaction Onset Date Resolved Date Statu s guaiFENesin Allergy Tingling in Fin gers/Skin Peels Off 10/31/2022 Active Last Documented On 3 10:31AM ; [facility] Insurance Includes: Active Insurance Policies Plan Name Member ID Group # Subscriber Relationship Effect roland Dates 1 - Medicare Part B [facility] [id number] Tay Biswas 2 - [employer] [id number] Tay Biswas Clinical Notes Includes: Signed Clinical Notes starting from 02/19/2022 No Clinical Notes Recorded
--- OUTSIDE RECORDS SUMMARY | 2024-06-10 11:20 | XMS_ITS | Clinical Summary ---
Author Organization [facility] Address [address] [place] [address] Care Team Providers Care Marketing Clerk Name Role Phone No, Pcp HHA Primary Care Provider Unavailabl e Immunizations Name Administration Dates Next Due Fluzone Trivalent High Dose (65+ years) 12/12/19 19 Social History Tobacco Use Types Packs/Day Years Used Date Smoking Tobacco: Never Assessed Sex and Gender Information Value Date Recorded Sex Assigned at Not on file Legal Sex Male 12:35 PM EDT Gender Identity Not on file Sexual Orientation Not on file Plan of Treatment Health Maintenance Due Date Last Done Comments Depression: Screening Annual ly using PHQ-2/9 in Adults 18 yrs or above (or HM Modifier)([facility]) 05/18/1957 SDOH Screening Reminder: Anita gleason for all adults ([facility]) 05/18/1957 Tobacco Smoking Cessation: i n Adults excluding Women: Behavioral and Pharmacotherapy Interventions ([facility]) 05/18/1957 DTaP/Tdap/Td Vaccines ([facility]) (1 - Tdap) 05/18/1958 Lipid Screening: Every 5 yrs for Men aged 35+ (or HM Modifier) ([facility]) 1975 Pneumococcal Vaccination Scr eening: Patients 50+ yrs of age ([facility]) (1 of 1 - PCV) 05/18/1989 Zoster/Shingles Vaccine Seri es Screening: Adults aged 18+ yrs (or HM Modifiers)([facility]) (1 of 2) 05/18/1989 RSV Vaccines (1 - 1-dose 75+ series) 05/18/2014 Flu Vaccination: Ages 65+: Y early High Dose Recommended (or Modifier)([facility]) 10/11/2023 12/11/2018 COVID-19 Vaccine Screening: Initial Series and Booster Status ([facility]) ( - 2023- season) 2023 Medical Devices Not on file Insurance [facility] MEDICARE MEDICARE Care Teams Marketing Clerk Relationship Specialty Start Date End Date No, Pcp, HHA N/A Do not use PCP - General Family Medicine 12/11/18
--- OUTSIDE RECORDS SUMMARY | 2024-06-10 11:20 | XMS_ITS | Encounter Summary ---
Author Name [facility] [place] [facility] [facility] [place] Address [address] [place] [address] Care Team Providers Care Health Data Analyst Name Role Phone BONITA HELMS Primary Care [...] MEGHANA MEDEX ANDRY E Mar 12, 2016 [id number] PRIYANK ELIZABETH SEPH PATIENT MEDICARE (WNR) MEDICARE (M) PART B May 10, 2004 PART B [id number] PRIYANK ELIZABETH SEPH PATIENT MEDICARE (WNR) MEDICARE (M) PART B May 10, 2004 PART B [id number] PRIYANK ELIZABETH SEPH PATIENT MEDICARE (WNR) MEDICARE (M) PART A July 10, 1997 PART A [id number] PAPIPRIYANK HARJINDER PATIENT MEDICARE (WNR) MEDICARE (M) PART A July 10, 1997 PART A [id number] PRIYANK ELIZABETH PATIENT Selected Encounter This section includes the information on record at [place] for the Encounter. Date/Time Encounter Type Encounter Description Reason Provider Source Feb 26, 2024 08:20 AM QNHP OL DIG ASSMT&MGMT 21+ [facility] - CLINICAL PHARMACIST ICD-10-CM Z79.899 Other residential (current) drug therapy CLEE VELÁZQUEZ E Encounter Template Text not used by [place] Assessments - Encounter Diagnoses This section includes the primary and secondary diagnoses documented for the Encounter. Date/Time Primary/Secondary Diagnosis Diagnosis Name Provider Source Feb 26, 2024 02:30 PM PRIMARY Other meterman (current) drug therapy CELE VELÁZQUEZ [facility] Plan of Treatment: Future Appointments (+ 6 months) and Future Tests (+/- 45 days) The Plan of Treatment section includes future care activities for the patient from all [place] treatmentfacilities. This section includes future appointments and [...] 2024 11:00 AM AMBULATORY - REHAB MEDICIN [facility] Mar 17, 2024 11:00 AM AM[place]ULAT[place] [facility] [place] [facility] Apr 11, 2024 01:00 PM AMBULATORY - REHAB MEDICIN E [facility] May 06, 2024 10:30 AM AMBULATORY - [place]IC[place] [facility] [place] [facility] May 22, 2024 11:30 AM AMBULATORY - MEDICINE [facility] [place] [facility] July 23, 2024 11:00 AM AMBULATORY - MEDICINE [facility] [place] [facility] August 08, 2024 11:00 AM AMBULATORY - REHAB [facility] Lab Results: +/- 30 days of [...] Range Comment Mar 17, 2024 11:31 AM [place] VITAMIN B12 Specimen Type: SERUM No comment entered. Ordering Provider: YENI PUENTES Report Released Date/Time: Jun 11, 2023 11:06 AM Reporting Lab: [facility] [address] [address] Performing Lab: [facility] [address] VITAMIN B12 512 pg/mL 200-900 Mar 17, 2024 11:31 AM [facility] FERRITIN Specimen Type: SERUM No comment entered. Ordering Provider: YENI PUENTES Report Released Date/Time: Jun 11, 2023 11:06 AM Reporting Lab: [facility] [place] [address] [address] Performing Lab: [facility] [place] [address] [address] FERRITIN 57 ng/mL 20-300 Mar 17, 2024 11:31 AM [facility] TSH Specimen Type: SERUM No comment entered. Ordering Provider: YENI PUENTES Report Released Date/Time: Jun 11, 2023 11:06 AM Reporting Lab: [facility] [place] [address] [address] Performing Lab: [facility] [address] TSH 3.25 u[IU]/mL 0.35-5.00 Mar 17, 2024 11:31 AM [facility] HEMOGLOBIN A1C PANEL Specimen Type: BLOOD Comment: [...] Jun 11, 2023 11:06 AM Reporting Lab: [address] [address] Performing Lab: [address] [address] HEMOGLOBIN A1C 7.4 H 4.0-5.6 Mar 17, 2024 11:31 AM [facility] MICROALBUMIN CREATININE RATIO PANEL Spe cimen Type: URINE No comment entered. Ordering Provider: EYNI PUENTES Report Released Date/Time: Jun 11, 2023 11:06 AM Reporting Lab: [address] [address] Performing Lab: [address] [address] MICROALBUMIN/C REATININE RATIO 155.3 mg/g H 0-29.9 MICROALBUMIN,Q UANTITATIVE 41.2 mg/dL RR UNAVAIL CREATININE URINE 265.23 mg/dL Mar 17, 2024 11:31 AM [facility] LIVER FUNCTION Specimen Type: SERUM No comment entered. Ordering Provider: YENI PUENTES Report Released Date/Time: Jun 11, 2023 11:06 AM Reporting Lab: [address] [address] Performing Lab: [address] [address] PROTEIN,TOTAL 7.2 g/dL 6.0-8.3 ALBUMIN 3.9 g/dL 3.5-5.0 ALKALINE PHOSPHATASE 86 U/L 40-150 AST 44 U/L H 5-34 ALT 28 U/L BILIRUBIN, TOTAL 0.4 mg/dL 0.2-1.2 Mar 17, 2024 11:31 AM [facility] URINALYSIS Specimen Type: URINE Comment: If Glucose = >500 and Ketones are positive, please alert the Physician. Ordering Provider: YENI PUENTES Report Released Date/Time: Jun 11, 2023 11:06 AM Reporting Lab: [address] [address] Performing Lab: [address] [address] UA COLOR Yellow Yellow UA APPEARANCE Turbid Clear UA GLUCOSE Normal mg/dL Negative UA KETONES TRACE mg/dL Negative UA BLOOD NEGATIVE mg/dL Negative UA PROTEIN 70 mg/dL Negative UA NITRITE NEGATIVE mg/dL Negative UA BILIRUBIN NEGATIVE mg/dL Negative UA SPECIFIC GRAVITY 1.022 1.016-1.022 UA pH 5.5 5.0-9.0 UA UROBILINOGEN Normal mg/dL <2.0 UA LEUKOCYTE TRACE Negative Mar 17, 2024 11:31 AM [facility] BASIC METABOLIC PANEL (fasting) Specime n Type: SERUM No comment entered. Ordering Provider: YENI PUENTES Report Released Date/Time: Jun 11, 2023 11:06 AM Reporting Lab: [facility] [address] [facility] [address] Performing Lab: [address] [address] UREA NITROGEN 39 mg/dL H 7-25 GLUCOSE 121 mg/dL H 65-100 SODIUM 139 mmol/L 135-145 POTASSIUM 4.2 mmol/L 3.5-5.0 CHLORIDE 102 mmol/L 100-110 CO2 28 meq/L 20-30 CREATININE, Serum 1.83 mg/dL H 0.50-1.40 eGFR(CKD-EPI 2020) 36 mL/min L >60 Mar 17, 2024 11:31 AM [facility] LIPID PANEL FASTING Specimen Type: SERUM No comment entered. Ordering Provider: YENI PUENTES Report Released Date/Time: Jun 11, 2023 11:06 AM Reporting Lab: [facility] [address] [facility] [address] Performing Lab: [facility] [address] [facility] [address] CHOLESTEROL 113 mg/dL TRIGLYCERIDE 141 mg/dL 0-150 LDL calculated 57 mg/dL 0-129 CHOL/HDL 4.0 HDL CHOLESTEROL 28 mg/dL L 40-60 Mar 17, 2024 11:31 AM [facility] CALCIUM Specimen Type: SERUM No comment entered. Ordering Provider: YENI PUENTES Report Released Date/Time: Jun 11, 2023 11:06 AM Reporting Lab: [facility] [address] [facility] [address] Performing Lab: [address] [address] CALCIUM 9.3 mg/dL 8.5-10.2 Mar 17, 2024 11:31 AM [facility] URIC ACID Specimen Type: SERUM No comment entered. Ordering Provider: YENI PUENTES Report Released Date/Time: Jun 11, 2023 11:06 AM Reporting Lab: [facility] [address] [facility] [address] Performing Lab: [facility] [address] [facility] [address] URIC ACID 6.4 mg/dL 3.5-7.2 Mar 17, 2024 11:31 AM [facility] VITAMIN D (25-OH) Specimen Type: SERUM No comment entered. Ordering Provider: YENI PUENTES Report Released Date/Time: Jun 11, 2023 11:06 AM Reporting Lab: [address] [address] Performing Lab: [address] [address] VITAMIN D (25-OH) 26 ng/mL 20-50 Mar 17, 2024 11:31 AM [facility] MICROSCOPIC AUTOMATED, URINE Specimen T ype: URINE Comment: If Glucose = >500 and Ketones are positive, please alert the Physician. Ordering Provider: YENI PUENTES Report Released Date/Time: Jun 11, 2023 11:06 AM Reporting Lab: [facility] [address] [facility] [address] Performing Lab: [address] [address] UA WBC 0-5 /[HPF] 0-5 UA MUCUS MODERATE /[LPF] Trace UA HYALINE CASTS 5-9 /[LPF] H 0-2 UA RBC 0-2 /[HPF] 0-3 UA SQUAMOUS EPITH FEW /[HPF] Mar 17, 2024 11:31 AM [facility] CBC AND DIFF (AUTO) Specimen Type: BLOOD No comment entered. Ordering Provider: YENI PUENTES Report Released Date/Time: Jun 11, 2023 11:06 AM Reporting Lab: [address] [address] Performing Lab: [facility] [address] [facility] [address] WBC 6.12 10*3/uL 4.50-11.00 RBC 4.58 10*6/uL [...] 24, 2022 10:01 AM VA-TOBACCO NEVER USED [facility] Advance Directives: All historical and current [...] Encounter. Date/Time Encounter Note(s) Provider Source Feb 26, 2024 08:21 AM [facility] MEDICATION MGT NOTE: LOCAL TITLE: [facility] PHARMACY MEDICATION REVIEW STANDARD TITLE: [facility] MEDICATION MGT NOTE DATE OF NOTE: FEB 26, 2024@08:21 ENTRY DATE: FEB 26, 2024@08:21:31 AUTHOR: CELE VELÁZQUEZ COSIGNER: URGENCY: STATUS: COMPLETED Tay Elizabeth Jr. is an 83 year-old [...] TAKE ONE TABLET BY MOUTH ONCE ACTIVE (S) DAILY FOR BLOOD PRESSURE/HEART, DO NOT TAKE [...] CHEW FOUR TABLETS BY MOUTH NEEDED ACTIVE Indication: FOR LOW BLOOD SUGAR 9) GLUCOSE SENSOR FREESTYLE CINDI 3 USE 1 SENSOR DIRECTED ACTIVE EVERY 14 DAYS 10) INSULIN,ASPART,HUMAN 100 UNIT/ML INJ INJECT INSULIN ACTIVE SUBCUTANEOUSLY THREE TIMES DAILY NEEDED ACCORDING TO SLIDING SCALE 11) LANCET,SOFTCLIX USE 1 LANCET DIRECTED FOUR TIMES A DAY TO ACTIVE TEST BLOOD SUGAR 12) METOPROLOL TARTRATE 25MG TAB TAKE ONE-HALF TABLET BY MOUTH ACTIVE TWICE DAILY FOR BLOOD PRESSURE/HEART Indication: FOR MYOCARDIAL REINFARCTION PREVENTION 13) MULTIVIT/OPHTH AREDS2/LUTE/ZEAX CAP/TAB TAKE 1 CAPSULE BY ACTIVE MOUTH TWICE DAILY IN THE MORNING AND EVENING, WITH FOOD 14) SERTRALINE HCL 100MG TAB TAKE ONE TABLET BY MOUTH TWICE ACTIVE DAILY 15) TAMSULOSIN HCL 0.4MG CAP TAKE ONE CAPSULE BY MOUTH ONCE ACTIVE DAILY Indication: FOR ENLARGED PROSTATE 16) ZOLPIDEM TARTRATE 5MG TAB TAKE ONE TABLET BY MOUTH AT ACTIVE BEDTIME NEEDED Indication: FOR SLEEP Active Non-VA Medications Status 1) Non-VA OTHER CAP/TAB FISH OIL, 1000MG EVERY DAY ACTIVE * Since last review, 's hydrocodone/acetaminophen and naloxone Rxs . THE ABOVE MEDICATIONS WERE REVIEWED FOR: ADR, potential incompatibilities, compliance, duplication of therapy, and indications on problem list Other Rx/OTC/Herbals: hydrocodone/acetaminophen (exp), naloxone (exp) High Alert Meds: hydrocodone/acetaminophen (exp), insulin aspart, zolpidem Look Alike/Sound Alike Meds: atorvastatin, hydrocodone/acetaminophen (exp), insulin aspart, metoprolol tartrate, sertraline, naloxone (exp) Duplication of Therapy: none Excessive Duration: fish oil, ?zolpidem Vitals: ======= Ht: 67 in [170.2 cm] (11/06/2022 14:48) Wt: 155.4 lb [70.49 kg] (10/25/2023 13:00) BMI: 24.4 BP: 134/68 (01/22/2024 15:00) HR: 66 (01/22/2024 15:00) Pain: 3 (01/22/2024 15:00) Labs: ===== SERUM Na K BUN SCr 3/28/24 140 4 23 1.18 10/31/22 140 4.6 [...] In the last 90 days: - No hospitalizations/infections noted - sustained a fall ~01/15/24 (see #3 below for additional info). - Per the 01/22/24 [facility] RN note, has a new insulin pump and received education, but he and his spouse reported confusion with how to use. Had a recent episode of hypoglycemia with BG in the 40s thought to be due to accidentally administering too much insulin. [facility] RN contacted his non-VA Endo provider and arranged someone to come to the home to provide additional education which and spouse found helpful. Also reinforced how to treat a low blood sugar. INTERVENTIONS/SUGGESTIONS: 1. Patient's medications were reviewed for significant drug interactions. * hydrocodone/sertraline: concurrent use may increase risk of serotonin syndrome; monitor for signs/sx (neuromuscular abnormalities, tachycardia, diaphoresis, hyperthermia, N/V, diarrhea or AMS) * hydrocodone/zolpidem: concurrent use may increase risk of respiratory and BOOTMAKER HAND depression; recommend limiting use of zolpidem with [...] increase fall risk including amlodipine, atorvastatin, hydrocodone (exp), insulin, metoprolol, sertraline, tamsulosin, and zolpidem. Last documented fall occurred on ~01/15/24; he was on his scooter trying to rake [...] prostate cancer - diagnosed 2021, followed by non-[place] Urology; s/p TURP, under surveillance (cystoscopy every 6 months); PET scan was recently ordered given concern for metastasis of bladder cancer based on findings from pelvic CT scan - was recommended to f/u with Urology * T1DM - hx of total pancreatectomy, on insulin pump (insulin aspart) currently followed by non-[place] Endo with support from [facility] IDT, SMBG using CGM (Heliospectra Cindi 3), receives steroid injections every 3 months; last [...] with only recent BP slightly elevated at 134/68 with HR of 66; continue to monitor for bradycardia; if additional BP lowering is required would consider ROSARIO-i or ARB especially given last labwork significant for elevated microalbumin/Cr; followed by non-[place] Cardiology * BPH - on tamsulosin * [...] not elevated enough where discontinuation is appropriate; would consider increasing dose to 40mg daily (high-intensity dosing) given ASCVD history and not on aspirin; monitor LFTs and for muscle pain/weakness * fish oil - last TG 134; recommend discontinuation given lack of evidence supporting use of fish oil supplements for CV risk reduction; has remote history of significantly elevated TG (in 5048-5885) 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 * [...] to medullary christofer with hx of hardware infection) consent: 07/31/22 last PDMP: 01/22/24, recommend quarterly last UDS: 05/01/23, recommend at least annually naloxone: yes, has in home, continue to monitor exp date * zolpidem - PRN Rx for bedtime but was taking on a scheduled basis per med refills; dose previously reduced from 10mg to 5mg, agent not typically recommended in older adults given concern for dizziness, next day impairment, BOOTMAKER HAND depression, and confusion as well as association with fall/fracture risk and increased ER visits/hospitalizations; will recommend clarifying current frequency of use and encouraging minimization of PRN use with plan to discontinue entirely to reduce risks and avoid withdrawal symptoms from abrupt discontinuation 6. Adherence Concerns: no concerns at this time - manages his own medications 7. Health Maintenance: > Immunizations: is UP-TO-DATE with immunizations per chart review and CDC recommendations. > Tobacco/EtOH: * Continue to ensure minimal [...] and falls per problem list 8. Patient has at least 1 refill remaining on all chronic [facility] Rxs. 9. Continue to review quarterly. Recommendations: - Of note, 's next fill of hydrocodone/acetaminophen is due tomorrow (02/27/24). Please enter a new order to avoid withdrawal symptoms if has been taking regularly. - Recommend discontinuation of fish oil given last TG of 134 and lack of evidence supporting use of fish oil supplements for CV risk reduction. 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 * This magnetic tape typewriter operator added naloxone to 's non-VA medication list for reconciliation purposes. [facility] and has in his home, but the Rx . The details of this review were shared with the IDT in order to assist in creating a care plan designed to provide services focused on the health and well being of the patient. Time Spent: 60 min /devon/ CELE VELÁZQUEZ [facility] Clinical Pharmacist Practitioner Signed: 02/26/2024 14:44 Receipt Acknowledged By: 02/26/2024 17:38 /devon/ BONITA HELMS [facility] NURSE PRACTITIONER 02/27/2024 16:43 /devon/ Paola Hudson RN [facility] surveyor mine [facility]
--- OUTSIDE RECORDS SUMMARY | 2024-06-10 11:20 | XMS_ITS ---
Author Organization [facility] Care Team Providers Care Jig Operator Name Role Phone Zhanna Anguiano Unavailable Unavailable Zahida Camacho Unavailable Unavailable Batsheva Valencia Unavailable Unavailable Dedra Larson Unavailable Unavailable Massiel Ruth Unavailable Unavailable Allergies and adverse reactions Code CodeSystem Substance Reaction Severity StartDate Concern Status IV Dye Unknown 01/28/2016 active 5032 RXNORM Guaifenesin Unknown 01/28/2016 active Care Team Name Role Address Phone Organization Dates Batsheva Valencia PCP [address] [address], [place], [address], [facility] (Office): [facility] 01/27/2016 - 02/02/2016 Zhanna Anguiano Attending Physician [address] [place] [address], [phone], [facility] (Office): [facility] 01/27/2016 - 02/02/2016 Zahida Camacho Attending Physician [address] [place] [address], [phone], [facility] (Office): [facility] 01/27/2016 - 02/02/2016 Dedra Larson Attending Physician [address] [place] [address], [phone], [facility] (Office): [facility] 01/27/2016 - 02/02/2016 Massiel Ruth Attending Physician [address] [place] [address] [address], [place], [address], [place] (Office): [facility] 01/27/2016 - 02/02/2016 Immunizations Immunization Status Vaccine Details Vaccine Code CodeSystem Date Notes Influenza cancelled Influenza, split virus, trivalent, injectable, contains preservative 141 CVX created date: 01/28/2016 consent date: 01/28/2016 Pneumococcal Polysaccharide Vaccine (PPSV23) cancelled pneumococcal polysaccharide vaccine, 23 valent 33 CVX created date: 01/28/2016 consent date: 01/28/2016 Mental Status Section Date Assessment Total Score Description 02/02/2016 BIMS 15 cognitively int act CAM 0 No delirium ind icated PHQ-9 00 Problems Problem # Description Date of onset Resolved Date Code CodeSystem Concern Status 1 ACUTE KIDNEY FAILURE, UNSPECIFIED 01/27/[address] active 2 ANXIETY DISORDER, UNSPECIFIED 01/27/[address] active 3 BACTEREMIA 01/27/[address] active 4 BENIGN PROSTATIC HYPERPLASIA WITHOUT LOWER URINARY TRACT SYMPTOMS 01/27/[address] active 5 DIABETES MELLITUS DUE TO UNDERLYING CONDITION WITH UNSPECIFIED COMPLICATIONS 01/27/[address] active 6 DIFFICULTY IN WALKING, NOT ELSEWHERE CLASSIFIED 01/27/[address] active 7 ESSENTIAL (PRIMARY) HYPERTENSION 01/27/[address] active 8 HYPERKALEMIA 01/27/[address] activ e 9 HYPERLIPIDEMIA, UNSPECIFIED 01/27/[address] active 10 MAJOR DEPRESSIVE DISORDER, SINGLE EPISODE, UNSPECIFIED 01/27/[address] active 11 NON-ST ELEVATION (NSTEMI) MYOCARDIAL INFARCTION 01/27/[address] active 12 OTHER LACK OF COORDINATION 01/27/[address] active 13 PAIN IN UNSPECIFIED KNEE 01/27/[address] active 14 PRESENCE OF LEFT ARTIFICIAL KNEE JOINT 01/27/[address] active 15 PYOGENIC ARTHRITIS, UNSPECIFIED 01/27/[address] active 16 UNSPECIFIED OSTEOARTHRITIS, UNSPECIFIED SITE 01/27/[address] active Reason for Referral No Reasons for Referral Entered Social History Social History Observation Description Start Date End Date Code Code System Current Smoking Status Tobacco smoking consumption unknown 607797640 SNOMED CT Sex Assigned At Male 1940 72498-6 [facility] Vital Signs Code Code System Vitals Name Values and Units Timing Information 9279-1 [facility] Respiratory Rate Value=18.0 Units=/m in 02/02/2016 8462-4 [facility] Blood Pressure-Diastolic Value=71 Un its=mmHg 02/02/2016 8480-6 [facility] Blood Pressure-Systolic Mhzvm=726 Un its=mmHg 02/02/2016 8310-5 [facility] Body Temperature Value=97.0 Units=?? F 02/02/2016 8867-4 [facility] Heart rate Value=71.0 Units=/min 90612-8 [facility] O2 % dC Oximetry Value=97.0 Units= % 02/02/2016 39326-6 [facility] Weight Pwpla=746.2 Units=Lbs 2339-0 [facility] Blood Sugar Ybyic=606.0 Units=mg/dL 02/02/2016 84680-1 [facility] Pain Level Value=0.0 01/30/2016
--- OUTSIDE RECORDS SUMMARY | 2024-06-10 11:20 | XMS_ITS | Clinical Summary ---
Author Organization [facility] Address [address] [place] [address] Phone Care Team Providers Care Negative Restorer Name Role Phone William Mcghee DO Primary Care Provider [phone] [facility] [phone] Reason for Visit and Chief Complaint Established Patient Plan of Treatment No Plan of Treatment Recorded Assessments Includes: Assessments from this encounter No Assessments Recorded Medical Equipment - Implanted Devices Includes: Current Devices No Medical Equipment Recorded Medications Includes: Medications discussed during this encounter and other current Medications Current Medications (continue as prescribed) Hydrocodone-Acetaminophen Oral Tablet 10/31/2022 Pro vider: Diagnosis: Last Documented On 3 8:26AM By Bright Sanchez ; [facility] Medications Administered Includes: Administered Medications from this [...] Active Last Documented On 3 10:31AM ; [facility] Insurance Includes: Active Insurance Policies Plan Name Member ID Group # Subscriber Relationship Effect roland Dates 1 - Medicare Part B [facility] [id number] Tay Biswas 2 - [employer] [id number] Tay Biswas Clinical Notes Includes: Clinical Notes from this encounter No Clinical Notes Recorded
--- OUTSIDE RECORDS SUMMARY | 2024-06-10 11:20 | XMS_ITS | Encounter Summary ---
Author Name [facility] [place] [facility] [place] [facility] [place] Address [address] [place] [address] Care Team Providers Care Feather Separator Name Role Phone BONITA HELMS Primary Care [...] Mueller's Name Patient's Relationship to Policy Mueller [facility] MEDICARE SUPPLEMEN [place] MEDEX [facility] E Mar 12, 2016 [id number] PRIYANK TURPIN SEPH PATIENT MEDICARE (WNR) MEDICARE (M) PART B May 10, 2004 PART B [id number] [phone] PRIYANK TURPIN SEPH PATIENT MEDICARE (WNR) MEDICARE (M) PART B May 10, 2004 PART B [id number] PRIYANK TURPIN SEPH PATIENT MEDICARE (WNR) MEDICARE (M) PART A July 10, 1997 PART A [id number] PRIYANK TURPIN PATIENT MEDICARE (WNR) MEDICARE (M) PART A July 10, 1997 PART A [id number] [facility] PRIYANK TURPIN PATIENT Selected Encounter This section includes the information on record at [place] for the Encounter. Date/Time Encounter Type Encounter Description Reason Pro vider Source Jun 09, 2024 07:11 AM Outpatient Encounter TELEPHONE [facility] IHE Encounter Template Text not used by [place] Plan of Treatment: Future Appointments (+ 6 months) and Future Tests (+/- 45 days) The Plan of Treatment section includes future care activities for the patient from all [place] treatmentfacilities. This section includes future appointments and [...] 23, 2024 11:00 AM AMBULATORY - MEDICINE [facility] August 08, 2024 11:00 AM AMBULATORY - REHAB [facility] Sep 03, 2024 12:30 PM AMBULATORY - MEDICINE [facility] Active, Pending, and Scheduled Orders This section includes a listing of several types of active, pending, and scheduled orders, including clinic medications orders, diagnostic test orders, procedure orders and consult orders; where the start date of the order is 45 days before the date of the Encounter or 45 days after the date of theEncounter. The data comes from all [place] treatment facilities. Test Date/Time Test Type Test Details Facility Name Jun 03, 2024 10:59 AM Consult Order COMMUNITY CARE-ENDOCRINE Cons Community Integration Specialist's Choice [facility] Jun 09, 2024 03:06 PM Consult Order CRANIAL ELECTROTHERAPY STIMULATION/SOPC OUTPT Cons Community Integration Specialist's Choice [facility] Jul 04, 2024 12:00 AM Laboratory - Chemistry Order ALCOHOL, ETHYL URINE PANEL URINE (DRUG) [facility] Jul 04, 2024 12:00 AM Laboratory - Chemistry Order AMPHETAMINES SCREEN PANEL URINE (DRUG) [facility] Jul 04, 2024 12:00 AM Laboratory - Chemistry Order FENTANYL SCREEN PANEL UR[facility] Jul 04, 2024 12:00 AM Laboratory - Chemistry Order BENZODIAZEPINES SCREEN PANEL URINE (DRUG[facility] Jul 04, 2024 12:00 AM Laboratory - Chemistry Order BUPRENORPHINE SCREEN PANEL UR[facility] (DRUG[facility] Jul 04, 2024 12:00 AM Laboratory - Chemistry Order CANNABINOIDS SCREEN PANEL UR[facility] (DRUG[facility] Jul 04, 2024 12:00 AM Laboratory - Chemistry Order COCAINE SCREEN PANEL [facility] (DRUG[facility] Jul 04, 2024 12:00 AM Laboratory - Chemistry Order OPIATES SCREEN PANEL URINE (DRUG[facility] Jul 04, 2024 12:00 AM Laboratory - Chemistry Order METHADONE SCREEN URINE SP [facility] Jul 04, 2024 12:00 AM Laboratory - Chemistry Order OXYCODONE SCREEN PANEL URINE (DRUG) [facility] Social History: Smoking Status (Most current) [...] 24, 2022 10:01 AM VA-TOBACCO NEVER USED [facility] Advance Directives: All historical and current Section Date Range: From patient's date of to the date document was created. This section includes ALL of a patient's completed or amended [place] Advance and Rescinded Directives. The entries below [...] Encounter Note(s) Provider Source Jun 09, 2024 07:12 AM ACCOUNTING OF DISCLOSURES NOTE: LOCAL TITLE: STATE PRESCRIPTION DRUG MONITORING PROGRAM STANDARD TITLE: ACCOUNTING OF DISCLOSURES NOTE DATE OF NOTE: JUN 09, 2024@07:12:15 ENTRY DATE: JUN 09, 2024@07:12:15 AUTHOR: BONIAT HELMS EXP COSIGNER: URGENCY: STATUS: COMPLETED This PDMP query was submitted by Bonita Helms. The clinical justification for this PDMP query is to review controlled substances prescribed outside of the [facility], and any additional information that may become available, as an important component of standard clinical care, and in accordance with [facility] policy. Patient information was shared with the PDMP Appriss [place]. No prescription(s) for controlled substances outside the [facility] were found in the last 90 days. /devon/ BONITA HELMS [facility] NURSE PRACTITIONER Signed: 06/09/2024 07:13 BONITA HELMS [place] [facility]
--- OUTSIDE RECORDS SUMMARY | 2024-06-10 11:20 | XMS_ITS | Data Portability ---
Author Organization [facility], [facility] Address [address] [place] [address] Care Team Providers Care It Audit Manager Name Role Phone LYNETTE MCRAE Primary Care Provider Assessment No assessment recorded. Plan of Treatment Reminders Order Date Submit Date Provider Last Modified By Organization Details Last Modified Time Details Appointments RECHECK 15 2024 08:00A M Maulik Cruz PA-C Not available Not available Not available RECHECK 2024 11:30A Charisma Cruz PA-C Not available Not available Not available Lab None recorded . Referral None recorded . Procedures None recorded . Surgeries None recorded . Imaging None recorded . Medication Orders None recorded . Patient TargetsNo targets recorded. Patient InstructionsNo instructions recorded. Reason for Referral None Reported. Results Created Date Observation Date Name Description Value Unit Range Abnormal Flag Note LastModifiedBy Organization Detail LastModifiedTime 11/10/19 24 08/13/2019 imagi ng/di agnos tic resul t No observ ation record ed. [email or web address] Not Available 10/12 03:58:49 11/10/19 24 08/13/2019 imagi ng/di agnos tic resul t No observ ation record ed. [email or web address] Not Available 10/12 03:58:50 Result Notes None recorded. Problems Name Problem SNOMED Code Status Onset Date Resolution Date Notes Provider Name and Address Organization Details Recorded Time Full thickness rotator cuff tear 823852769 Active 024 Maulik Cruz PA-C [address], [place], [address] , [facility] 05/29/202 4 06:24:59 Problem Notes None recorded. Procedures Surgical History Date Name Laterality Status Provider Name and Address Organization Details Recorded Time 5 Sports Shoulder Bilateral completed Maulik Cruz PA-C [address] [facility], [place], [address], [facility] 05/14/2024 06:47:08 4 Sports Shoulder Bilateral completed Maulik Cruz PA-C [address], [place], [address], [facility] 02/12/2024 07:14:43 4 Sports Shoulder Bilateral completed Maulik Cruz PA-C [address] [facility], [place], [address], [facility] 11/07/2023 09:32:18 4 Sports Shoulder Bilateral completed Maulik Cruz PA-C [address] [facility], [place], [address], [facility] 08/08/2023 10:32:41 Imaging Results Imaging Date Name Status LastModified by Organiz ation Details LastModified Time 08/13/2019 imaging/diag nostic result completed Information not available 11/10/2023 03:58:49 08/13/2019 imaging/diag nostic result completed Information not available 11/10/2023 03:58:50 Procedure Notes None recorded. Medical Equipment None Reported. Allergies Allergen ID Allergen Name Allergen Category Reaction Reaction Severity Criticality Documentation Date Start Date Code Code System Note Provider Name and Address Organization Details Recorded Time 57264 Iodinated contrast media (substanc e) medicatio n Not available Not available Not available 05/14/20232006 13941 2003 SNOMED Aller gyNam e: 'Ivp Dye'; Aller gyRea ction : 'Skin React ion'; Not Available [employer] 4 13:27:45 Medications Name Sig Start Date Stop Date Status Note LastModified by Organization Details LastModified Time tamsulosin 0.4 mg capsule TAKE 1 CAPSULE BY MOUTH EVERYDAY AT BEDTIME active Not Available Not Available N ot Available cephalexin 500 mg capsule TAKE 1 CAPSULE BY MOUTH TWICE A DAY FOR 7 DAYS active Not Available Not Available No t Available gabapentin 100 mg capsule TAKE 1 CAPSULE BY MOUTH AT BED DAY 1, 1 CAPSULE TWICE DAILY DAY 2. THEN TAKE 1 CAPSULE 3 TIMES A DAY active Not Available Not Available No t Available pregabalin 50 mg capsule TAKE 1 CAPSULE BY MOUTH TWICE A DAY FOR 30 DAYS active Not Available Not Available No t Available Contour Next Test Strips TEST 3 TIMES A DAY active Not Available Not Available No t Available Vitals Date Recorded Body height Body mass index (BMI) Body weight Provider Name and Address Organization Details Last Updated DateTime 08/08/2023 170.18 cm 27.4 kg/m2 88770.66 g Maulik Cruz PA-C [address] [facility] [address] [place] [address], [address], [facility] 08/08/2023 10:17:54 Date Recorded Body height Body mass index (BMI) Body weight Provider Name and Address Organization Details Last Updated DateTime 11/07/2023 170.18 cm 23.5 kg/m2 46487.86 g Maulik Cruz PA-C [address] [facility] [address] [place] [address], [address], [facility] 11/07/2023 10:44:09 Date Recorded Body height Body mass index (BMI) Body weight Provider Name and Address Organization Details Last Updated DateTime 02/12/2024 170.18 cm 23.5 kg/m2 85202.86 g Maulik Cruz PA-C [address] [facility] [address] [place] [address], [address], [facility] 02/12/2024 10:58:26 Date Recorded Body height Body mass index (BMI) Body weight Provider Name and Address Organization Details Last Updated DateTime 05/14/2024 170.18 cm 23.5 kg/m2 68728.86 g Maulik Cruz PA-C [address] [facility] [address] [place] [address], [address], [facility] 05/14/2024 10:08:42 Social History None recorded. Functional Status None recorded. Mental Status None recorded. Family History Nothing Reported. Medical History Condition Response Diabetes Y Past Encounters Encounter ID Performer Location Encounter Start Date Encounter Closed Date Diagnosis/Indication Diagnosis SNOMED-CT Code Diagnosis ICD10 Code Diagnosis Note [id number] Maulik Cruz PA-C [facility] [address] [place] [address] 08/08/2023 10:09:00 08/20/2023 09:35:24 Full thickness rotator cuff tear 006784339 M75.787 [id number] Maulik Cruz PA-C [facility] [address] [place] [address] 11/07/2023 10:02:22 11/22/2023 15:06:35 Full thickness rotator cuff tear 600816601 M75.286 [id number] Maulik Cruz PA-C [facility] [address] [place] [address] 02/12/2024 10:30:21 02/27/2024 09:26:52 Full thickness rotator cuff tear 955645015 M75.239 [id number] Maulik Cruz PA-C [facility] [address] [place] [address] 05/14/2024 09:49:55 05/29/2024 15:42:54 Full thickness rotator cuff tear 575670436 M75.120 Health Concerns Section Related Observation LastModified by Organization Detai ls LastModified Time None Recorded Concern Status LastModified by Organization Details LastModified Time None Recorded Advance Directives Directive None Recorded Payers Encounter Date Sequence Insurance Name Policy Number Policy Mueller Covered Member ID Mueller Member ID Guarantor Name 08/08/2023 2 [place] [id number] Tay Goyalau [id number] Tay Elizabeth 08/08/2023 1 [place] [employer] Tay Elizabeth [id number] Tay Elizabeth 11/07/2023 2 [place] [id number] Tay Goyalau [id number] Tay Elizabeth 11/07/2023 1 [place] [employer] Tay Elizabeth [id number] Tay Elizabeth 02/12/2024 2 [place] [id number] Tay Glenn [id number] Tay Elizabeth 02/12/2024 1 [place] [facility] [employer] Tay Elizabeth [id number] Tay Elizabeth 05/14/2024 2 [place] [id number] Tay Elizabeth [id number] Tay Elizabeth 05/14/2024 1 [place] [facility] Tay Elizabeth [id number] Tay Elizabeth Notes Date Note Type Note Provider Name and Address Organization Details Recorded Time 08/08/2023 text/html I am seeing the patient today under the supervision of Dr. Saenz who was available but who did not see the patient.Reason For VisitPatient comes to the office with know degenerative rotator cuff disease history outlined in Dr. 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 He also is caring for his who has been diagnosed with cancer and she is dependent on him and therefore appoint his life where he can take time off to have any surgery.Past Medical/Surgical HistoryCurrent medications per intake sheet.Physical FindingsThe patient is well appearing, in no apparent distress, alert and oriented to person, place and time. Gait is symmetric. No significant swelling, warmth or erythema about either shoulder. There is mild tenderness to palpation about the shoulders. Active range of motion of the shoulders is near full with mild to moderate pain through mid range manipulations. 4/5 strength of the shoulder, but the rotator cuff seems to fire well. Good stability of the shoulder. 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 Continued conservative management recommended, including ongoing laser therapy treatments. Moderating activities with the upper extremity recommended also. Maulik Cruz PA-C [address], [place], [address], [facility] 08/08/2023 10:33:02 11/07/2023 text/html I am seeing the patient today under the supervision of Dr. Saenz who was available but who did not see the patient.Reason For VisitPatient comes to the office with know degenerative rotator cuff disease history outlined in Dr. 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 He also is caring for his who has been diagnosed with cancer and she is dependent on him and therefore appoint his life where he can take time off to have any surgery.Past Medical/Surgical HistoryCurrent medications per intake sheet.Physical FindingsThe patient is well appearing, in no apparent distress, alert and oriented to person, place and time. Gait is symmetric. No significant swelling, warmth or erythema about either shoulder. There is mild tenderness to palpation about the shoulders. Active range of motion of the shoulders is near full with mild to moderate pain through mid range manipulations. 4/5 strength of the shoulder, but the rotator cuff seems to fire well. Good stability of the shoulder. 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 Continued conservative management recommended, including ongoing laser therapy treatments. Moderating activities with the upper extremity recommended also. Maulik Cruz PA-C [address], [place], [address], [facility] 11/07/2023 11:09:57 02/12/2024 text/html I am seeing the patient today under the supervision of Dr. Mao who was available but who did not see the patient.Reason For VisitPatient comes to the office with know degenerative rotator cuff disease history outlined in Dr. 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 He also is caring for his who has been diagnosed with cancer and she is dependent on him and therefore appoint his life where he can take time off to have any surgery.Past Medical/Surgical HistoryCurrent medications per intake sheet.Physical FindingsThe patient is well appearing, in no apparent distress, alert and oriented to person, place and time. Gait is symmetric. No significant swelling, warmth or erythema about either shoulder. There is mild tenderness to palpation about the shoulders. Active range of motion of the shoulders is near full with mild to moderate pain through mid range manipulations. 4/5 strength of the shoulder, but the rotator cuff seems to fire well. Good stability of the shoulder. 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 Continued conservative management recommended, including ongoing laser therapy treatments. Moderating activities with the upper extremity recommended also. Maulik Cruz PA-C [address] [place] [address] [address], [place], [address], [facility] 02/12/2024 11:12:19 05/14/2024 text/html I am seeing the patient today under the supervision of Dr. Saenz who was available but who did not see the patient.Reason For VisitPatient comes to the office with know degenerative rotator cuff disease history outlined in Dr. 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 He also is caring for his who has been diagnosed with cancer and she is dependent on him and therefore appoint his life where he can take time off to have any surgery.Past Medical/Surgical HistoryCurrent medications per intake sheet.Physical FindingsThe patient is well appearing, in no apparent distress, alert and oriented to person, place and time. Gait is symmetric. No significant swelling, warmth or erythema about either shoulder. There is mild tenderness to palpation about the shoulders. Active range of motion of the shoulders is near full with mild to moderate pain through mid range manipulations. 4/5 strength of the shoulder, but the rotator cuff seems to fire well. Good stability of the shoulder. 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 Continued conservative management recommended, including ongoing laser therapy treatments. Moderating activities with the upper extremity recommended also. Maulik Cruz PA-C [address], [place], [address], [facility] 05/14/2024 10:17:13
--- OUTSIDE RECORDS SUMMARY | 2024-06-10 11:20 | XMS_ITS | Encounter Summary ---
Author Name [facility] [facility] [place] [facility] [place] Address [address] [place] [address] Care Team Providers Care Student Ministries Director Name Role Phone BONITA HELMS Primary Care [...] Mueller's Name Patient's Relationship to Policy Mueller [facility] MEDICARE SUPPLEMEN [place] [facility]EX [facility] E Mar 12, 2016 [id number] PRIYANK TURPIN SEPH PATIENT MEDICARE (WNR) MEDICARE (M) PART B May 10, 2004 PART B [id number] PRIYANK TURPIN SEPH PATIENT MEDICARE (WNR) MEDICARE (M) PART B May 10, 2004 PART B [id number] PRIYANK TURPIN SEPH PATIENT MEDICARE (WNR) MEDICARE (M) PART A July 10, 1997 PART A [id number] PRIYANK TURPIN PATIENT MEDICARE (WNR) MEDICARE (M) PART A July 10, 1997 PART A [id number] [facility] PRIYANK TURPIN PATIENT Selected Encounter This section includes the information on record at [place] for the Encounter. Date/Time Encounter Type Encounter Description Reason Provider Source Mar 17, 2024 11:00 AM EAR IMPRESSION AUDIOLOGY ICD-10-CM Z46.1 Encounter for fitting and adjustment of hearing aid DONI JAIN Encounter Template Text not used by [place] Assessments - Encounter Diagnoses This section includes the primary and secondary diagnoses documented for the Encounter. Date/Time Primary/Secondary Diagnosis Diagnosis Name Provider Source Mar 17, 2024 11:33 AM PRIMARY Encounter for fitting and adjustment of hearing aid TONJA CAPPS [place] [facility] [place] [facility] Mar 17, 2024 11:33 AM SECONDARY Sensorineural hearing loss, bilateral TONJA CAPPS [facility] [place] [facility] Plan of Treatment: Future Appointments (+ 6 months) and Future Tests (+/- 45 days) The Plan of Treatment section includes future care activities for the patient from all [place] [facility] This section includes future appointments and future orders which are active, pending or scheduled. Future Appointments This section includes appointments that were scheduled to occur 6 months from the date of the Encounter, up to a maximum of 20 appointments. The data comes from all [place] treatment facilities. Appointment Date/Time Appointment Type Appointme nt Facility Name Apr 11, 2024 01:00 PM AMBULATORY - RE[facility] [place] May 06, 2024 10:30 AM [place] [facility] [place] [facility] May 22, 2024 11:30 AM AM[place]IC[place] [facility] [facility] July 23, 2024 11:00 AM AMBULATORY - MEDICINE [facility] [place] [facility] August 08, 2024 11:00 AM AMBULATORY - [facility] [place] Sep 03, 2024 12:30 PM AMBULATORY - MEDICINE [facility] [place] [facility] Lab Results: +/- 30 days of the encounter This section includes the Chemistry and Hematology Lab Results on record with [place] for the patient. Radiology Reports and Pathology Reports are provided separately, in subsequent sections. Lab Results This section contains the Chemistry/Hematology Results that were resulted 30 days before or 30 daysafter the date of the Encounter. Date/Time Source Result Type Result - Unit Interpretation Reference Range Comment Mar 17, 2024 11:31 AM [place] FERRITIN Specimen Type: SERUM No comment entered. Ordering Provider: YENI PUENTES Report Released Date/Time: Jun 11, 2023 11:06 AM Reporting [facility]: [facility] [address] [address] Performing Lab: [facility] [address] [address] FERRITIN 57 ng/mL 20-300 Mar 17, 2024 11:31 AM [place] VITAMIN B12 Specimen Type: SERUM No comment entered. Ordering Provider: YENI PUENTES Report Released Date/Time: Jun 11, 2023 11:06 AM Reporting Lab: [facility] [address] [address] Performing Lab: [facility] [address] [address] VITAMIN B12 512 pg/mL 200-900 Mar 17, 2024 11:31 AM [place] TSH Specimen Type: SERUM No comment entered. Ordering Provider: YENI PUENTES Report Released Date/Time: Jun 11, 2023 11:06 AM Reporting Lab: [facility] [address] [address] Performing Lab: [facility] [address] [address] TSH 3.25 u[IU]/mL 0.35-5.00 Mar 17, 2024 11:31 AM [place] HEMOGLOBIN A1C PANEL Specimen Type: BLOOD Comment: [...] Reporting Lab: [facility] [address] [facility] [address] Performing Lab: [facility] [address] [facility] [address] HEMOGLOBIN A1C 7.4 H 4.0-5.6 Mar 17, 2024 11:31 AM [place] MICROALBUMIN CREATININE RATIO PANEL Spe cimen Type: URINE No comment entered. Ordering Provider: YENI PUENTES Report Released Date/Time: Jun 11, 2023 11:06 AM Reporting Lab: [facility] [address] [facility] [address] Performing Lab: [facility] [address] [facility] [address] MICROALBUMIN/C REATININE RATIO 155.3 mg/g H 0-29.9 MICROALBUMIN,Q UANTITATIVE 41.2 mg/dL RR UNAVAIL CREATININE URINE 265.23 mg/dL Mar 17, 2024 11:31 AM [place] CALCIUM Specimen Type: SERUM No comment entered. Ordering Provider: YENI PUENTES Report Released Date/Time: Jun 11, 2023 11:06 AM Reporting Lab: [facility] [address] [facility] [address] Performing Lab: [facility] [address] [facility] [address] CALCIUM 9.3 mg/dL 8.5-10.2 Mar 17, 2024 11:31 AM [place] URIC ACID Specimen Type: SERUM No comment entered. Ordering Provider: YENI PUENTES Report Released Date/Time: Jun 11, 2023 11:06 AM Reporting Lab: [facility] [address] [facility] [address] Performing Lab: [facility] [address] [address] URIC ACID 6.4 mg/dL 3.5-7.2 Mar 17, 2024 11:31 AM [place] URINALYSIS Specimen Type: URINE Comment: If Glucose = >500 and Ketones are positive, please alert the Physician. Ordering Provider: YENI PUENTES Report Released Date/Time: Jun 11, 2023 11:06 AM Reporting Lab: [facility] [address] Performing Lab: [address] [address] UA COLOR Yellow Yellow UA APPEARANCE Turbid Clear UA GLUCOSE Normal mg/dL Negative UA KETONES TRACE mg/dL Negative UA BLOOD NEGATIVE mg/dL Negative UA PROTEIN 70 mg/dL Negative UA NITRITE NEGATIVE mg/dL Negative UA BILIRUBIN NEGATIVE mg/dL Negative UA SPECIFIC GRAVITY 1.022 1.016-1.022 UA pH 5.5 5.0-9.0 UA UROBILINOGEN Normal mg/dL <2.0 UA LEUKOCYTE TRACE Negative Mar 17, 2024 11:31 AM [place] LIPID PANEL FASTING Specimen Type: SERUM No comment entered. Ordering Provider: YENI PUENTES Report Released Date/Time: Jun 11, 2023 11:06 AM Reporting Lab: [address] [address] Performing Lab: [address] [address] CHOLESTEROL 113 mg/dL TRIGLYCERIDE 141 mg/dL 0-150 LDL calculated 57 mg/dL 0-129 CHOL/HDL 4.0 HDL CHOLESTEROL 28 mg/dL L 40-60 Mar 17, 2024 11:31 AM [place] LIVER FUNCTION Specimen Type: SERUM No comment entered. Ordering Provider: YENI PUENTES Report Released Date/Time: Jun 11, 2023 11:06 AM Reporting Lab: [address] [address] Performing Lab: [address] [address] PROTEIN,TOTAL 7.2 g/dL 6.0-8.3 ALBUMIN 3.9 g/dL 3.5-5.0 ALKALINE PHOSPHATASE 86 U/L 40-150 AST 44 U/L H 5-34 ALT 28 U/L BILIRUBIN, TOTAL 0.4 mg/dL 0.2-1.2 Mar 17, 2024 11:31 AM [place] BASIC METABOLIC PANEL (fasting) Specime n Type: SERUM No comment entered. Ordering Provider: YENI PUENTES Report Released Date/Time: Jun 11, 2023 11:06 AM Reporting Lab: [facility] [address] [address] Performing Lab: [address] [address] UREA NITROGEN 39 mg/dL H 7-25 GLUCOSE 121 mg/dL H 65-100 SODIUM 139 mmol/L 135-145 POTASSIUM 4.2 mmol/L 3.5-5.0 CHLORIDE 102 mmol/L 100-110 CO2 28 meq/L 20-30 CREATININE, Serum 1.83 mg/dL H 0.50-1.40 eGFR(CKD-EPI 2020) 36 mL/min L >60 Mar 17, 2024 11:31 AM [place] VITAMIN D (25-OH) Specimen Type: SERUM No comment entered. Ordering Provider: YENI PUENTES Report Released Date/Time: Jun 11, 2023 11:06 AM Reporting Lab: [address] [address] Performing Lab: [address] [address] VITAMIN D (25-OH) 26 ng/mL 20-50 Mar 17, 2024 11:31 AM [place] MICROSCOPIC AUTOMATED, URINE Specimen T ype: URINE Comment: If Glucose = >500 and Ketones are positive, please alert the Physician. Ordering Provider: YENI PUENTES Report Released Date/Time: Jun 11, 2023 11:06 AM Reporting Lab: [address] [address] Performing Lab: [address] [address] UA WBC 0-5 /[HPF] 0-5 UA MUCUS MODERATE /[LPF] Trace UA HYALINE CASTS 5-9 /[LPF] H 0-2 UA RBC 0-2 /[HPF] 0-3 UA SQUAMOUS EPITH FEW /[HPF] Mar 17, 2024 11:31 AM [place] CBC AND DIFF (AUTO) Specimen Type: BLOOD No comment entered. Ordering Provider: YENI PUENTES Report Released Date/Time: Jun 11, 2023 11:06 AM Reporting Lab: [address] [address] Performing Lab: [facility] [address] [facility] [address] WBC 6.12 10*3/uL 4.50-11.00 RBC 4.58 10*6/uL [...] 2022 10:01 AM VA-TOBACCO NEVER USED [facility] Advance Directives: All historical and current Section Date Range: From patient's date of to the date document was created. This section includes ALL of a patient's completed or amended [place] Advance and Rescinded Directives. The entries below [...] Encounter. 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 RTC entered. /es/ CELE CAPPS Audiology Health Production Assistant Signed: 04/02/2024 09:11 /devon/ XAVIER Barkley, YURY-A CHIEF, AUDIOLOGY/SURVEYOR INSTRUMENT ASSISTANT Cosigned: 04/02/2024 15:00 Receipt Acknowledged By: 04/02/2024 15:13 /devon/ SULEMA FERRERA ========= --- Original Document --- 03/17/24 AUDIOLOGY HEALTH CLOTH DYER: March 17, 2024 History/Background: [place] was seen for a hearing aid follow up, accompanied by his . The [place] presented today for new ear impressions. The previous impressions were taken in 2012, and the [place] has reported a 50 lbs. weight loss since then. The current earmolds are not providing a secure fit. Otoscopy revealed clear canals. With the [place]'s verbal consent, new ear impressions were taken without incident. Two sets of skeleton earmolds will be ordered. Upon receipt of all 4 earmolds, the [place] can be contacted to schedule a 30 min HT appointment on [facility] to assess the fit. /devon/ CELE CAPPS Audiology Health Production Assistant Signed: 03/17/2024 11:35 /devon/ Caro Landry CCC-A Information Security Officer Cosigned: 03/17/2024 13:55 [place] CAPPS [place] [facility] [facility] Mar 17, 2024 07:46 AM AUDIOLOGY NOTE: LOCAL TITLE: AUDIOLOGY HEALTH CLOTH DYER STANDARD TITLE: AUDIOLOGY NOTE DATE OF NOTE: MAR 17, 2024@07:46 ENTRY DATE: MAR 17, 2024@07:46:48 AUTHOR: CELE CAPPS COSIGNER: DONI JAIN URGENCY: STATUS: COMPLETED AUDIOLOGY HEALTH CLOTH DYER Has ADDENDA March 17, 2024 History/Background: was seen for a hearing aid follow up, accompanied by his . The presented today for new ear impressions. The previous impressions were taken in 2012, and the [place] has reported a 50 lbs. weight loss since then. The current earmolds are not providing a secure fit. Otoscopy revealed clear canals. With the 's verbal consent, new ear impressions were taken without incident. Two sets of skeleton earmolds will be ordered. Upon receipt of all 4 earmolds, the can be contacted to schedule a 30 min HT appointment on [facility]. to assess the fit. /devon/ CELE CAPPS Audiology Health Production Assistant Signed: 03/17/2024 11:35 /Caro Carranza CCC-A Information Security Officer Cosigned: 03/17/2024 13:55 04/02/2024 ADDENDUM STATUS: COMPLETED Both sets of earmolds received and certified, spoke with the Veterans (on Comm Auth) and scheduled a 30 min HT appointment on 04/11/2024 @ 1300 on [facility]. 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 RTC entered. /hilton CAPPS Audiology Health Production Assistant Signed: 04/02/2024 09:11 /devon/ XAVIER Barkley, YURY-A CHIEF, AUDIOLOGY/SURVEYOR INSTRUMENT ASSISTANT Cosigned: 04/02/2024 15:00 Receipt Acknowledged By: * AWAITING SIGNATURE * SULEMA FERRERA,CELE [place] [facility]
--- OUTSIDE RECORDS SUMMARY | 2024-06-10 11:20 | XMS_ITS | Clinical Summary ---
Author Organization [facility] Address [address] [place] [address] Phone Care Team Providers Care Slot Floorperson Name Role Phone William Mcghee DO Primary Care Provider [phone] [facility] [phone] Reason for Visit and Chief Complaint Established Patient Plan of Treatment Pending Tests Order Diagnosis Results Due Ordering P ruperto Follow Up - Appointment 1 Month Contusio n of left lower leg, initial encounter 01/04/23 Sara Campa MD Last Documented On 3 9:53AM ; [facility] Assessments Includes: Assessments from this encounter No Assessments Recorded Medical Equipment - Implanted Devices Includes: Current Devices No Medical Equipment Recorded Medications Includes: Medications discussed during this encounter and other current Medications Current Medications (continue as prescribed) Hydrocodone-Acetaminophen Oral Tablet 10/31/2022 Pro vider: Diagnosis: Last Documented On 3 8:26AM By Bright Sanchez ; [facility] Medications Administered Includes: Administered Medications from this encounter No Administered Medications Recorded Vital Signs Includes: Vital Signs from this encounter Vital Name 01/04/2023 08:04A Blood Pressure Sitting (mmHg) 129/66 Pulse Rate-Sitting (bpm) 58 Temp-Temporal 97.4 Height (in) 66 Weight (lb) 150 Body Mass Index 24.2 Body Surface Area 1.8 Oxygen Saturation (%) 97 Last Documented: On 01/04/2023 8:05AM ; [facility] Results Includes: Results discussed during this [...] no complaints today. He reports there is closed scabs of his leg Physical exam: No persistent fluctuant area. There is obvious swelling. The 2 areas of scab which are about half centimeter by half centimeter which are closed over with no active drainage. Imaging: None today Impression: Hematoma left [...] Last Documented On 3 10:31AM ; [facility] En[facility]ters Encounter Provider Location Date Check-In Time Check-Out Time Diagnosis Established Patient [facility] 023 8:20AM 8:30AM Insurance Includes: Active Insurance Policies Plan Name Member ID Group # Subscriber Relationship Effect roland Dates 1 - Medicare Part B of [place] [id number] Tay Biswas 2 - [employer] [id number] Tay Biswas Clinical Notes Includes: Clinical Notes from this encounter * Progress note Date Encounter Last Documented by 01/04/2023 Established Patient Neymar simpson on 01/04/2023; 9:53 AM, Sara Campa MD; [facility] Physical Findings - Vitals taken 01/04/2023 08:04 am BP-Sitting 129/66 mmHg Pulse Rate-Sitting 58 bpm Temp-Temporal 97.4 F Height 66 in Weight 150 lbs Body Mass Index 24.2 kg/m2 Body Surface Area 1.8 m2 Oxygen Saturation 97 % Plan StartCited - Contusion of left [...] no complaints today. He reports there is closed scabs of his leg Physical exam: No persistent fluctuant area. There is obvious swelling. The 2 areas of scab which are about half centimeter by half centimeter which are closed over with no active drainage. Imaging: None today Impression: Hematoma left leg. Plan: Doing well. Continue local wound care. Follow-up in 1 month. Wound appears to slowly be closing and granulating in. No obvious fluctuance or hematoma noted today.
--- OUTSIDE RECORDS SUMMARY | 2024-06-10 11:20 | XMS_ITS | Encounter Summary ---
Author Name [facility] [place] [facility] [place] Address [address] [place] [address] Care Team Providers Care Director Of Restaurants Name Role Phone BONITA HELMS Primary Care [...] [facility] MEDICARE SUPPLEMEN [place] MEDEX [facility] E Mar 12, 2016 [id number] PRIYANK TURPIN SEPH PATIENT MEDICARE (WNR) MEDICARE (M) PART B May 10, 2004 PART B [id number] [phone] PRIYANK TURPIN SEPH PATIENT MEDICARE (WNR) MEDICARE (M) PART B May 10, 2004 PART B [id number] PRIYANK TURPIN SEPH PATIENT MEDICARE (WNR) MEDICARE (M) PART A July 10, 1997 PART A [id number] PRIYANK TURPIN PATIENT MEDICARE (WNR) MEDICARE (M) PART A July 10, 1997 PART A [id number] [facility] PRYIANK TURPIN PATIENT Selected Encounter This section includes the information on record at [place] for the Encounter. 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 MERHAR,ANUPAMA B [facility] [place] [facility] Dec 17, 2023 08:43 AM SECONDARY Presence of intraocular lens MERHAR,ANUPAMA B [facility] [place] [facility] Dec 17, 2023 08:43 AM SECONDARY Regular astigmatism, bilateral MERHAR,ANUPAMA B [facility] [place] [facility] Dec 17, 2023 08:43 AM SECONDARY Type 2 diab with mild nonp rtnop without macular edema, bi MERHAR,ANUPAMA B [facility] [place] [facility] Plan of Treatment: Future Appointments (+ 6 months) and Future Tests (+/- 45 days) The Plan of Treatment section includes future care activities for the patient from all VA treatmentfacilities. This section includes future appointments and future orders which are active, pending or scheduled. Future Appointments This section includes appointments that were scheduled to occur 6 months from the date of the Encounter, up to a maximum of 20 appointments. The data comes from all [place] treatment facilities. Appointment Date/Time Appointment Type Appointme nt Facility Name Jan 09, 2024 02:00 PM AMBULATORY - [facility]AB MEDICIN [facility] [place] [facility] Feb 29, 2024 11:00 AM AMBULATORY - [facility] Mar 17, 2024 11:00 AM [facility] Apr 11, 2024 01:00 PM AMBULATORY - RE[facility] MEDICIN E [facility] May 06, 2024 10:30 AM AMBULATORY - [facility]IC[facility] [place] [facility] May 22, 2024 11:30 AM [facility] Social History: Smoking [...] place. Date/Time Current Smoking Status Comment Kathy ute Mar 24, 2022 10:01 AM [facility] Advance Directives: [...] this document. The data comes from all [place] facilities. Date Advance Directives Provider Source Jun 28, 2009 ADVANCE DIRECTIVE MANUELITO MORELOS Encounter Notes: All associated encounter notes This section contains the clinical notes associated to the Encounter. Date/Time Encounter Note(s) Provider Source Nov 28, 2023 10:23 AM OPTOMETRY NOTE: LOCAL TITLE: OPTOMETRY NOTE STANDARD TITLE: OPTOMETRY NOTE DATE OF NOTE: NOV 28, 2023@10:23 ENTRY DATE: NOV 28, 2023@10:23:43 AUTHOR: ANUPAMA COONEY EXP COSIGNER: URGENCY: STATUS: COMPLETED 83 WHITE MALE NOT OR Last eye exam: 04/10/22 Reason for Visit/CC: patient here for a comprehensive eye exam. More difficulty seeing up close - ran over most recent glasses. Taking AREDS2 BID OHx: 1. 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 Type II diabetes without retinopathy or macular edema OU 3. Pseudophakia OU 4. 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 ([facility] [id number]) H35.3130 Advanced age related macular degeneration ([facility] [id number]) H91.93 Hearing impaired ([facility] [id number]) C67.9 Bladder cancer ([facility] [id number]) M75.120 Full thickness rotator cuff tear ([facility] [id number]) M54.12 Cervical radiculopathy ([facility] [id number]) I25.10 Coronary artery disease ([facility] [id number]) M17.12 Localized, primary osteoarthritis ([facility] [id number]) M65.322 Trigger finger ([facility] [id number]) 799.9 autophony (ICD-9-CM 799.9) 362.51 Age Macular Degeneration, Dry (Armd) (ICD-9-CM 362.51) 726.10 Disorders of bursae and tendons in shoulder region (ICD-9-CM 726.10) 361.30 Retinal defect (ICD-9-CM 361.30) 367.9 Refractive error (ICD-9-CM 367.9) 366.15 Cataract, Cortical (Senile) (ICD-9-CM 366.15) R69. Generalized anxiety disorder ([facility] [id number]) K86.1 Pancreatitis ([facility] [id number]) 799.9 ENDOSCOPY (ICD-9-CM 799.9) R31.9 Hematuria ([facility] [id number]) 799.9 Foot drop (ICD-9-CM 799.9) 799.9 Trochanteric Bursitis (ICD-9-CM 799.9) V76.51 Screening for Malignant Neoplasms of colon (ICD-9-CM V76.51) 389.10 SENSORNEUR HEAR LOSS NOS (ICD-9-CM 389.10) 530.81 Gastroesophageal Reflux Disorder (ICD-9-CM 530.81) I11.9 Hypertension ([facility] [id number]) 311. Depressive Disorder NOS (ICD-9-CM 311.) E10.65 Diabetes mellitus ([facility] [id number]) 272.4 HYPERLIPIDEMIA NEC/NOS (ICD-9-CM 272.4) Other: SYSTEMIC MEDICATIONS/OCULAR MEDICATIONS: Active and Recently Outpatient Medications (excluding Supplies): Active Outpatient Medications Status ========= 1) ACCU-CHEK GUIDE (GLUCOSE) TEST STRIP USE [...] ACTIVE MOUTH TWICE DAILY FOR CALCIUM SUPPLEMENT 6) CARBOXYMETHYLCELLULOSE NA 0.5% OPH SOLN INSTILL 1 ACTIVE DROP INTO EACH EYE FOUR TIMES DAILY NEEDED FOR DRY EYE 7) CREON 24,000UNIT EC CAP TAKE 3 CAPSULES BY MOUTH ACTIVE THREE TIMES A DAY 8) GLUCOSE 4GM CHEW TAB CHEW FOUR TABLETS BY MOUTH ACTIVE NEEDED FOR LOW BLOOD SUGAR 9) HYDROCODONE 5MG/ACETAMINOPHEN 325MG TAB TAKE 1 TABLET ACTIVE BY MOUTH THREE TIMES DAILY NEEDED NEXT FILL 11/27 10) INSULIN,ASPART,HUMAN 100 UNIT/ML INJ INJECT INSULIN ACTIVE SUBCUTANEOUSLY THREE TIMES DAILY NEEDED ACCORDING TO SLIDING SCALE 11) METOPROLOL TARTRATE 25MG TAB TAKE ONE-HALF TABLET BY HOLD MOUTH TWICE DAILY FOR BLOOD PRESSURE/HEART 12) MULTIVIT/OPHTH AREDS2/LUTE/ZEAX CAP/TAB TAKE 1 ACTIVE CAPSULE BY MOUTH TWICE DAILY IN THE MORNING AND EVENING, WITH FOOD 13) NALOXONE HCL 4MG/SPRAY SOLN NASAL SPRAY INSTILL 1 ACTIVE SPRAY ONE NOSTRIL ONE TIME NEEDED FOR OPIOID OVERDOSE CALL 911 WITH ADMINISTRATION. REPEAT WITH SECOND DEVICE IF SYMPTOMS RETURN 14) SERTRALINE HCL 100MG TAB TAKE ONE TABLET BY MOUTH ACTIVE (S) TWICE DAILY 15) TAMSULOSIN HCL 0.4MG CAP TAKE ONE CAPSULE BY MOUTH ACTIVE ONCE DAILY FOR ENLARGED PROSTATE Inactive Outpatient Medications Status ========= 1) ZOLPIDEM TARTRATE 5MG TAB TAKE ONE TABLET BY MOUTH AT BEDTIME NEEDED FOR SLEEP Active Non-VA Medications Status ========= 1) Non-VA OTHER CAP/TAB FISH OIL, 1000MG EVERY DAY ACTIVE 17 Total Medications ALLERGIES: CONTRAST MEDIA, OTHER, RADIOLOGICAL/CONTRAST MEDIA GUAFENESIN DEXTROMETHORPHAN SYRUP LAST BP: 136/70 (11/22/2023 11:00) PERTINENT LABS: HEMOGLOBIN A1C; BLOOD Ed. Date: 06/07/23 09:47 10/31/22 09:08 Test Name Result Units Range HEMOGLOBIN A1C 9.8 H 8.2 H % 4.0 - 5.6 Current Rx with last BCVA: OD: +0.75 -0.75 x 120 20/20-1 OS: plano -1.00 x 030 20/20-1 Add: +2.75 DVA ( )sc ( x )cc OD 20/20-2 OS 20/20 Pupils: PERRL (-)APD EOM: Full all meridia OU, (-) pain/diplopia Confrontation Visual Purdy: Full all meridia OU Subjective: no change OD +0.75 -0.75 x 120 20/20-2 OS plano -1.00 x 030 20/20 Add: +2.75 20/25 OU no improvement with higher add SLE: Lids/Lashes: dermatochalasis OU Conjunctiva: white and quiet OU Corneas: clear OU Iris: flat and clear OD, flat, small nevus inferior OS (-)NVI OU Anterior Chamber: deep and quiet OU Angles: open OU Lens: PCIOL OU TAP @ 10:36am Dawn OD 11 mm Hg OS 10 mm Hg Dilating Drops: 1 gtt 1% Tropicamide OU, 2.5% phenylephrine OU (Pt. ed. on side effects) Vitreous: Syneresis OU, PVD OU C/D (Size and Rim Description) OD 0.30 pink & healthy OS 0.35 pink & healthy (-)NVD OU Macula OD flat with pigment mottling and small drusen, area of not well defined geographic atrophy inferior nasal to fovea OS flat with pigment mottling and small drusen, area of not well defined geographic atrophy inferior to fovea (-)fluid/hemorrhage OU A/V: normal caliber OU Posterior Pole: few small hemorrhages superior to disc OD, clear OS Periphery: Flat and intact (-)NVE, holes, tears, detachments 360 OU RPE hyperplasia superiorly OD, areas of reticular degeneration and chorioretinal atrophy OU blot hemorrhage superior temp OS Assessment/Plan: 1. Advanced non-exudative age-related macular degeneration without subfoveal involvement OU, no hemorrhage or fluid seen clinically. Stable acuity. Areas of atrophy noted OU today, photos taken for future monitoring. Continue AREDS BID PO. Pt ed on findings, continue to monitor 2. 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 Last A1c 9.8. Pt ed on findings and importance of good blood glucose control. Monitor 3. Pseudophakia OU - stable, monitor 4. regular astigmatism OU - order new trifocals clear and DVO sun RTC 9 months or earlier PRN Patient Education: Diabetes: Patient was educated regarding diabetes and related ocular complications including retinopathy and cataract formation as well as other related systemic complications. The importance of good blood sugar control, blood sugar testing as recommended by their PCP and the importance of timely follow up were all emphasized. Macular Degeneration: Patient was educated regarding macular degeneration including both wet and dry varieties as well as the natural history and prognosis of this condition. Education included the role of amsler grid testing , ocular nutraceutical therapy as well as diet and healthy lifestyle choices when applicable. Exclusion criteria includes extremely reduced acuity or cognitive decline for amsler grid testing and other coexisting systemic contraindication for supplements, diet and exercise. patient offered and declined printed medication list Medication Reconciliation: Outpatient: Has the patient been taking medications as documented in the EMLR? YES: The patient has been taking medications as documented in the EMLR. Essential Medication List for Review used to complete this medication reconciliation. INCLUDED IN THIS LIST: Alphabetical list of active outpatient prescriptions dispensed from this [facility] (local) and dispensed from another [place] or [facility] facility (remote) as well as inpatient orders (local, pending and active), local clinic medications, locally documented non-VA medications, and local prescriptions that have or been discontinued in the past 90 days. - All changes in medications, including all non-VA/Herbal/OTC medications were entered into CPRS. - If there were any medications the patient should no longer take, they were discontinued. - The patient/caregiver was instructed to update this list, discard old lists, and take this list to the next appointment, whether with a VA or non-VA provider. JLV Link Data on this list may not be complete. Please check [employer]. Allergies/ADRs (Tool #5) FACILITY ALLERGY/ADR -------- [facility] CONTRAST MEDIA [facility] MEDIA, OTHER [facility] [place] [facility] GUAFENESIN DEXTROMETHORPHAN SYRUP [place] [facility] [place] [facility] RADIOLOGICAL/CONTRAST MEDIA Med Recon NoGlossary (Tool #1) INCLUDED IN THIS LIST: Alphabetical list of active outpatient prescriptions dispensed from this VA (local) and dispensed from another [place] or [facility] facility (remote) as well as inpatient orders (local pending and active), local clinic medications, locally documented non-VA medications, and local prescriptions that have or been discontinued in the past 90 days. Non-VA Meds Last Documented On: May 09, 2017 NOTE The display of VA prescriptions dispensed from another [place] or [facility] facility (remote) is limited to active outpatient prescription entries matched to National Drug File at the originating site and may not include some items such as investigational drugs, compounds, etc. NOT INCLUDED IN THIS LIST: Medications self-entered by the patient into personal health records (i.e. Meal Sharing) are NOT included in this list. Non-VA medications documented outside this VA, remote inpatient orders (regardless of status) and remote clinic medications are NOT included in this list. The patient and provider must always discuss medications the patient is taking, regardless of where the medication was dispensed or obtained. -------- OUTPT AMLODIPINE BESYLATE 10MG TAB (Status = Active) TAKE ONE TABLET BY MOUTH ONCE DAILY FOR BLOOD PRESSURE/HEART, DO NOT TAKE WITH GRAPEFRUIT JUICE REPLACE LOSARTAN Rx# [id number] Last Released: 09/24/23 Qty/Days Supply: 90 Rx Expiration Date: 06/11/24 Refills Remainin OUTPT ATORVASTATIN CALCIUM 20MG TAB (Status = Active) TAKE ONE TABLET BY MOUTH AT BEDTIME FOR CHOLESTEROL Rx# [id number] Last Released: 08/22/23 Qty/Days Supply: 90 Rx Expiration Date: 06/11/24 Refills Remainin OUTPT CALCIUM 500MG/VITAMIN D 200 UNT TAB (Status = Active) TAKE 1 TABLET BY MOUTH TWICE DAILY FOR CALCIUM SUPPLEMENT Rx# [id number] Last Released: 10/31/23 Qty/Days Supply: 180/ Rx Expiration Date: 10/23/24 Refills Remainin Indication: FOR CALCIUM SUPPLEMENT OUTPT CARBOXYMETHYLCELLULOSE NA 0.5% OPH SOLN (Status = Active) INSTILL 1 DROP INTO EACH EYE FOUR TIMES DAILY NEEDED FOR DRY EYE Rx# [id number] Last Released: 10/11/23 Qty/Days Supply: 15 Rx Expiration Date: 06/21/24 Refills Remainin Indication: FOR DRY EYE OUTPT CREON 24,000UNIT EC CAP (Status = Active) TAKE 3 CAPSULES BY MOUTH THREE TIMES A DAY Rx# [id number] Last Released: 10/31/23 Qty/Days Supply: 300/30 Rx Expiration Date: 08/14/24 Refills Remainin OUTPT GLUCOSE 4GM CHEW TAB (Status = Active) CHEW FOUR TABLETS BY MOUTH NEEDED FOR LOW BLOOD SUGAR Rx# [id number] Last Released: 10/11/23 Qty/Days Supply: 60 Rx Expiration Date: 10/08/24 Refills Remainin Indication: FOR LOW BLOOD SUGAR OUTPT HYDROCODONE 5MG/ACETAMINOPHEN 325MG TAB (Status = Discontinued) TAKE 1 TABLET BY MOUTH THREE TIMES DAILY NEEDED FOR PAIN NEXT FILL 09/24/23 Rx# [id number] Last Released: 08/27/23 Qty/Days Supply: Rx Expiration Date: 09/21/23 Refills Remainin Indication: FOR PAIN OUTPT HYDROCODONE 5MG/ACETAMINOPHEN 325MG TAB (Status = ) TAKE 1 TABLET BY MOUTH THREE TIMES DAILY NEEDED FOR PAIN NEXT FILL 10/22/23 Rx# [id number] Last Released: 09/24/23 Qty/Days Supply: Rx Expiration Date: 10/24/23 Refills Remainin Indication: FOR PAIN OUTPT HYDROCODONE 5MG/ACETAMINOPHEN 325MG TAB (Status = Active) TAKE 1 TABLET BY MOUTH THREE TIMES DAILY NEEDED NEXT FILL 11/27 Rx# [id number] Last Released: 10/31/23 Qty/Days Supply: Rx Expiration Date: 11/30/23 Refills Remainin Indication: FOR PAIN OUTPT INSULIN,ASPART,HUMAN 100 UNIT/ML INJ (Status = Active) INJECT INSULIN SUBCUTANEOUSLY THREE TIMES DAILY NEEDED ACCORDING TO SLIDING SCALE Rx# [id number] Last Released: 10/25/23 Qty/Days Supply: 06/08 Rx Expiration Date: 03/19/24 Refills Remainin OUTPT METOPROLOL TARTRATE 25MG TAB (Status = Discontinued) TAKE ONE TABLET BY MOUTH TWICE DAILY FOR BLOOD PRESSURE/HEART Rx# [id number] Last Released: 07/02/23 Qty/Days Supply: 180 Rx Expiration Date: 06/11/24 Refills Remainin OUTPT METOPROLOL TARTRATE 25MG TAB (Status = Discontinued) TAKE ONE-FOURTH TABLET BY MOUTH TWICE DAILY FOR BLOOD PRESSURE/HEART Rx# [id number] Last Released: 10/16/23 Qty/Days Supply: 45/ Rx Expiration Date: 01/14/24 Refills Remainin Indication: FOR MYOCARDIAL REINFARCTION PREVENTION OUTPT METOPROLOL TARTRATE 25MG TAB (Status = On Hold) TAKE ONE-HALF TABLET BY MOUTH TWICE DAILY FOR BLOOD PRESSURE/HEART Rx# [id number] Last Released: Qty/Days Supply: Rx Expiration Date: 10/22/24 Refills Remainin Indication: FOR MYOCARDIAL REINFARCTION PREVENTION OUTPT MULTIVIT/OPHTH AREDS2/LUTE/ZEAX CAP/TAB (Status = Active) TAKE 1 CAPSULE BY MOUTH TWICE DAILY IN THE MORNING AND EVENING, WITH FOOD Rx# [id number] Last Released: 10/31/23 Qty/Days Supply: 120/60 Rx Expiration Date: 05/22/24 Refills Remainin OUTPT NALOXONE HCL 4MG/SPRAY SOLN NASAL SPRAY (Status = Active) INSTILL 1 SPRAY ONE NOSTRIL ONE TIME NEEDED FOR OPIOID OVERDOSE CALL 911 WITH ADMINISTRATION. REPEAT WITH SECOND DEVICE IF SYMPTOMS RETURN Rx# [id number] Last Released: 10/12/23 Qty/Days Supply: Rx Expiration Date: 01/06/24 Refills Remainin Indication: FOR OPIOID OVERDOSE Non-VA OTHER CAP/TAB FISH OIL, 1000MG po EVERY DAY Patient wants to buy from Non-VA pharmacy. OUTPT SERTRALINE HCL 100MG TAB (Status = Active/Suspended) TAKE ONE TABLET BY MOUTH TWICE DAILY Rx# [id number] Last Released: 11/14/23 Qty/Days Supply: 180 Rx Expiration Date: 06/11/24 Refills Remainin OUTPT TAMSULOSIN HCL 0.4MG CAP (Status = Active) TAKE ONE CAPSULE BY MOUTH ONCE DAILY FOR ENLARGED PROSTATE Rx# [id number] Last Released: 10/11/23 Qty/Days Supply: Rx Expiration Date: 10/08/24 Refills Remainin Indication: FOR ENLARGED PROSTATE OUTPT ZOLPIDEM TARTRATE 10MG TAB (Status = Discontinued) TAKE ONE TABLET BY MOUTH BEDTIME NEEDED FOR SLEEP Rx# [id number] Last Released: 08/27/23 Qty/Days Supply: Rx Expiration Date: 09/21/23 Refills Remainin Indication: FOR SLEEP OUTPT ZOLPIDEM TARTRATE 10MG TAB (Status = Discontinued) TAKE ONE TABLET BY MOUTH BEDTIME NEEDED FOR SLEEP Rx# [id number] Last Released: 09/25/23 Qty/Days Supply: Rx Expiration Date: 10/24/23 Refills Remainin Indication: FOR SLEEP OUTPT ZOLPIDEM TARTRATE 5MG TAB (Status = ) TAKE ONE TABLET BY MOUTH AT BEDTIME NEEDED FOR SLEEP Rx# [id number] Last Released: 10/29/23 Qt Supply: Rx Expiration Date: 11/22/23 Refills Remainin Indication: FOR SLEEP -------- SUPPLIES -------- OUTPT ACCU-CHEK GUIDE (GLUCOSE) TEST STRIP (Status = Active) USE 1 STRIP TO TEST BLOOD SUGARS FOUR TIMES A DAY Rx# [id number] Last Released: 09/24/23 Qty/Days Supply: Rx Expiration Date: 05/09/24 Refills Remainin OUTPT ACCU-CHEK GUIDE ME (GLUCOSE) METER (Status = Active) USE METER TO TEST BLOOD SUGARS FOUR TIMES A DAY Rx# [id number] Last Released: 06/15/23 Qty/Days Supply: Rx Expiration Date: 06/11/24 Refills Remainin OUTPT GLUCOSE SENSOR FREESTYLE FELICIANO 3 (Status = Active) USE 1 SENSOR DIRECTED EVERY 14 DAYS Rx# [id number] Last Released: 11/19/23 Qty/Days Supply: 05/09 Rx Expiration Date: 10/18/24 Refills Remainin OUTPT LANCET,SOFTCLIX (Status = Active) USE 1 LANCET DIRECTED FOUR TIMES A DAY TO TEST BLOOD SUGAR Rx# [id number] Last Released: 06/13/23 Qty/Days Supply: Rx Expiration Date: 06/11/24 Refills Remainin OUTPT TABLET CUTTER (PILL SPLITTER) (Status = Active) USE CUTTER DIRECTED BY PROVIDER TO SPLIT TABLETS Rx# [id number] Last Released: 10/16/23 Qty/Days Supply: Rx Expiration Date: 01/14/24 Refills Remainin /devon/ ANUPAMA COONEY 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
--- OUTSIDE RECORDS SUMMARY | 2024-06-10 11:21 | XMS_ITS | Encounter Summary ---
Author Name [facility] [place] [facility] [place] [facility] [place] Address [address] [place] [address] Care Team Providers Care Laboratory Machinist Name Role Phone BONITA HELMS Primary Care [...] [facility] MEDICARE SUPPLEMEN [place] [facility]EX [facility] E Mar 12, 2016 [id number] PRIYANK TURPIN SEPH PATIENT MEDICARE (WNR) MEDICARE (M) PART B May 10, 2004 PART B [id number] [phone] PRIYANK TURPIN SEPH PATIENT MEDICARE (WNR) MEDICARE (M) PART B May 10, 2004 PART B [id number] PRIYANK TURPIN SEPH PATIENT MEDICARE (WNR) MEDICARE (M) PART A July 10, 1997 PART A [id number] PRIYANK TURPIN PATIENT MEDICARE (WNR) MEDICARE (M) PART A July 10, 1997 PART A [id number] [facility] PRIYANK TURPIN PATIENT Selected Encounter This section includes the information on record at [place] for the Encounter. Date/Time Encounter Type Encounter Description Reason Provider Source Oct 17, 2023 09:58 AM QNHP OL DIG ASSMT&MGMT 01-29 [facility]ICAL [facility] ICD-10-CM E10.65 Type 1 diabetes mellitus with hyperglycemia CELE VELÁZQUEZ [place] Encounter Template Text not used by [place] Assessments - Encounter Diagnoses This section includes the primary and secondary diagnoses documented for the Encounter. Date/Time Primary/Secondary Diagnosis Diagnosis Name Provider Source Oct 17, 2023 10:20 AM PRIMARY Type 1 diabetes mellitus with hyperglycemia CELE VELÁZQUEZ Plan of Treatment: Future Appointments (+ 6 months) and Future Tests (+/- 45 days) The Plan of Treatment section includes future care activities for the patient from all [place] [facility]. This section includes future appointments and future orders which are active, pending or scheduled. Future Appointments This section includes appointments that were scheduled to occur 6 months from the date of the Encounter, up to a maximum of 20 appointments. The data comes from all [place] treatment facilities. Appointment Date/Time Appointment Type Appointme nt Facility Name Nov 27, 2023 11:00 AM AMBULATORY - [place] [facility] [place] [facility] [place] [facility] Nov 28, 2023 10:30 AM AMBULATORY - MEDICINE [facility] [place] [facility] Nov 28, 2023 11:30 AM AMBULATORY - MEDICINE [place] [facility] [place] [facility] Nov 28, 2023 11:45 AM AMBULATORY - MEDICINE [place] [facility] [place] [facility] Jan 09, 2024 02:00 PM AMBULATORY - REHAB MEDICIN [facility] [place] [facility] [place] [facility] Feb 29, 2024 11:00 AM AMBULATORY - REHAB MEDICIN [facility] Mar 17, 2024 11:00 AM AMBULATORY - RE[facility]IC[facility] [place] [facility] [place] [facility] Apr 11, 2024 01:00 PM AMBULATORY - REHAB [facility] Social History: Smoking Status (Most current) and Tobacco Use (All prior to encounter date) This section includes the most current, and the historical, smoking and tobacco- related health factors from the [place] facility where the Encounter took place. Current Smoking Status This section includes the most current smoking, or tobacco-related health factor, from the [place] facility where the Encounter took place. Date/Time Current Smoking Status Comment Kathy unger Jun 11, 2023 10:30 AM VA-TOBACCO FORMER USER [place] Tobacco Use History This section includes a history of the smoking, or tobacco-related health factors, that were collected on or before the date of the Encounter. The data comes from the [place] facility where the Encounter took place. Date/Time Smoking Status/Tobacco Use Comment Lilo [facility] Jun 11, 2023 10:30 AM VA-TOBACCO QUIT 15 YRS OR MORE [place] Feb 18, 2021 01:30 PM VA-TOBACCO NEVER USED [place] Jan 13, 2020 10:00 AM VA-TOBACCO NEVER USED [place] May 09, 2017 11:00 AM QUIT TOBACCO USE > 7 YEARS AGO does not smoke [place] July 18, 2016 10:35 AM LIFETIME NON-TOBACCO USER [place] May 11, 2015 10:13 AM QUIT TOBACCO USE > 7 YEARS AGO [place] Jan 27, 2005 09:24 AM HISTORY OF SMOKING 1987 [place] Feb 23, 2004 02:53 PM HISTORY OF SMOKING stopped tobacco 17 years ago [place] Feb 23, 2004 02:53 PM QUIT TOBACCO USE > 7 YEARS AGO stopped tobacco 17 years ago [place] Feb 14, 2001 09:55 AM HISTORY OF SMOKING [place] Feb 14, 2001 09:55 AM NON-TOBACCO USER quit x 14yrs. [place] Advance Directives: All historical and current Section Date Range: From patient's date of to the date document was created. This section includes ALL of a patient's completed or amended [place] Advance and Rescinded Directives. The entries below indicate that a directive exists for the patient, but an actual copy is not included with this document. The data comes from all [facility]. Date Advance Directives Provider Source Jun 28, 2009 ADVANCE DIRECTIVE MANUELITO MORELOS Encounter Notes: All associated encounter notes This section contains the clinical notes associated to the Encounter. Date/Time Encounter Note(s) Provider Source Oct 17, 2023 10:21 AM ADDENDUM: LOCAL TITLE: Addendum STANDARD TITLE: ADDENDUM DATE OF NOTE: OCT 17, 2023@10:21:49 ENTRY DATE: OCT 17, 2023@10:21:50 AUTHOR: CELE VELÁZQUEZ EXP COSIGNER: URGENCY: STATUS: COMPLETED Please enter Rx for CGM sensors. /devon/ CELE VELÁZQUEZ [facility] Clinical Pharmacist Practitioner Signed: 10/17/2023 10:22 Receipt Acknowledged By: 10/18/2023 16:35 /devon/ BONITA HELMS [facility] NURSE PRACTITIONER == --- Original Document --- 10/17/23 CONSULT REPORT/PRIOR AUTH FACILITY PADR: The medical record has been reviewed with regard to this restricted drug request. 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 He has a history of labile BG readings, recently 40s-500s with last A1c of 9.8%, and requires CGM for appropriate montoring and safe insulin dose adjustments. Currently followed by Endo provider and BG readings to be closely followed by [facility] interdisciplinary team to collaborate with specialist in the setting of complexity of disease state. [facility] PharmD to to provide education on CGM. The request is approved - A documented therapeutic failure of the preferred formulary alternative(s) exists Comment: fingersticks Time spent: 15 min /hilton VELÁZQUEZ [facility] Clinical Pharmacist Practitioner Signed: 10/17/2023 10:21 CELE VELÁZQUEZ [place] Oct 17, 2023 09:59 AM PHARMACY CONSULT: LOCAL TITLE: CONSULT REPORT/PRIOR AUTH FACILITY PADR STANDARD TITLE: PHARMACY CONSULT DATE OF NOTE: OCT 17, 2023@09:59 ENTRY DATE: OCT 17, 2023@10:00:01 AUTHOR: CELE VELÁZQUEZ EXP COSIGNER: URGENCY: STATUS: COMPLETED CONSULT REPORT/PRIOR AUTH FACILITY PADR Has ADDENDA The medical record has been reviewed with regard to this restricted drug request. 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 He has a history of labile BG readings, recently 40s-500s with last A1c of 9.8%, and requires CGM for appropriate montoring and safe insulin dose adjustments. Currently followed by Endo provider and BG readings to be closely followed by [facility] interdisciplinary team to collaborate with specialist in the setting of complexity of disease state. [facility] PharmD to to provide education on CGM. The request is approved - A documented therapeutic failure of the preferred formulary alternative(s) exists Comment: fingersticks Time spent: 15 min /hilton VELÁZQUEZ [facility] Clinical Pharmacist Practitioner Signed: 10/17/2023 10:21 10/17/2023 ADDENDUM STATUS: COMPLETED Please enter Rx for CGM sensors. /hilton VELÁZQUEZ [facility] Clinical Pharmacist Practitioner Signed: 10/17/2023 10:22 Receipt Acknowledged By: * AWAITING SIGNATURE * BONITA HELMS SARAH J [place]
== END 2024-06-10 13:11 | disposition home or self-care (01) ==
LOC: HO.HKAS 09:46
PROVIDERS: PCP Internal Medicine; Visit Provider Internal Medicine Nephrology
DX: N17.9 Acute kidney failure, unspecified (principal); N18.31 Chronic kidney disease, stage 3a; I10 Essential (primary) hypertension
CPT/HCPCS: 99214

== ENCOUNTER → 2024-06-10 09:46 | Outpatient (BNVA) | payer MEDICARE, SELFPAY | PROVIDERS: PCP Internal Medicine; Visit Provider Internal Medicine Nephrology | DX: I12.9 Hypertensive chronic kidney disease with stage 1 through stage 4 chronic kidney disease, or unspecified chronic kidney disease (principal); N18.31 Chronic kidney disease, stage 3a; N17.9 Acute kidney failure, unspecified | CPT/HCPCS: 99212 ==

== ENCOUNTER 2024-07-29 13:49 | Outpatient (AMB) | payer MEDICARE, SELFPAY ==
[2024-07-29 13:54] VITALS: BP 120/70; PULSE 53; O2SAT 97; BMI 25.8
--- NOTE | 2024-07-29 13:54 | HO.NEPHOV_ITS ---
Vital Signs 07/29/24 13:54 Height 5 ft 6 in Weight 160 lb BMI 25.8 BP 120/70 Blood Pressure Location Lt brachial Position Sitting Pulse 53 Pulse Source Pulse Oximeter Pulse Oximetry (%) 97 Oxygen Delivery Method Room Air Intake Visit Reasons: 1mon follow-up w/labs-Conf w/ Territory Service Representative Required: No Accompanied by: Spouse Allergies No Known Allergies Allergy (Verified 07/29/24 13:59) HPI Comments Details: I had the pleasure of seeing Tay in follow-up of his chronic kidney disease. He has history of Whipples. His BP has been running low. His blood sugar is better controlled. He is on insulin pump. He avoids nonsteroidal anti- inflammatories. He denies nausea, vomiting, diarrhea, chest pain, shortness of breath, proximal nocturnal dyspnea, orthopnea, hematuria, urinary symptoms or orthostasis. His serum creatinine is back to baseline [facility] Medical History (Updated 06/10/24 @ 10:20 by Winston Comer MD) Hypertension CKD (chronic kidney disease) stage 3, GFR 30-59 ml/min Surgical History H/O repair of rotator cuff History of carpal tunnel release History of hernia repair S/P triple vessel bypass History of back surgery History of knee replacement History of surgery on lower extremity Family History Mother Stroke Father Heart attack Social History Alcohol intake: never Patient Tobacco Use Status: Former Tobacco user Review of Systems Const All systems reviewed & are unremarkable except as noted in HPI and below Physical Exam Vital Signs: Last Vital Signs Pulse 53 07/29/24 13:54 BP 166/72 H 07/29/24 13:54 Pulse Ox 97 07/29/24 13:54 Oxygen Delivery Method Room Air 07/29/24 13:54 BMI result Body Mass Index 25.8 Const General: comfortable and no acute distress Orientation/consciousness: patient oriented x3 HEENT Head: Yes normocephalic Mouth: Normal oral and palatal mucosa present Eyes EOM: EOMs intact bilaterally Neck Neck: Yes supple Resp Auscultation: clear to auscultation bilaterally Cardio Jugular venous distension: no JVD Rate: regular rate GI Palpation (GI): Soft to palpation Auscultation: normal bowel sounds General: Yes no CVA tenderness Back/Spine/Pelvis Back: no CVA tenderness Skin General skin exam: no rashes or lesions noted Neuro General: patient oriented x3 and moves all extremities Results Reviewed Nephrology Results: No Data to Display Assessment & Plan Assessment & Plan (1) CKD (chronic kidney disease) stage 3, GFR 30-59 ml/min: Code(s): N18.30 - Chronic kidney disease, stage 3 unspecified Category: Medical Qualifiers: Chronic kidney disease stage 3 subtype: stage 3a (GFR 45-59) Qualified Code(s): N18.31 - Chronic kidney disease, stage 3a (2) Hypertension: Code(s): I10 - Essential (primary) hypertension Category: Medical Qualifiers: Hypertension type: primary hypertension Qualified Code(s): I10 - Essential (primary) hypertension Plan He has CKD stage 3. His renal functions are marginally worse with low BP's which went to baseline after I held his Amlodiopine. I asked him to increase hydration. He does not have any proteinuria. His blood pressure is at goal now. He is on statins. His volume status is optimal. I did not change any other m edications . Follow-up lab work ordered. Follow-up appointment given Orders: Orders Creatinine 4 Months I10 - Essential (primary) hypertension, N18.31 - Chronic kidney disease, stage 3a Blood Urea Nitrogen 4 Months I10 - Essential (primary) hypertension, N18.31 - Chronic kidney disease, stage 3a Electrolytes 4 Months I10 - Essential (primary) hypertension, N18.31 - Chronic kidney disease, stage 3a Coding Level of Care Code Est Pt Level 4 (52825) Diagnoses Stage 3a chronic kidney disease N18.31 Chronic kidney disease stage 3 subtype: stage 3a (GFR 45-59) Primary hypertension I10 Hypertension type: primary hypertension
--- OUTSIDE RECORDS SUMMARY | 2024-07-29 15:07 | XMS_ITS | Encounter Summary ---
Author Name [facility] [place] [facility] [place] [facility] [place] Address [address] [place] [address] Care Team Providers Care Sales Agent Food Vending Service Name Role Phone BONITA HELMS Primary Care Provider UnavailMOHAMUD Banuelos Unavailable Unavailable MISAEL RAMIREZ Unavailable Unavailable BELA RODNEY Unavailable Unavailable LON [...] Mueller's Name Patient's Relationship to Policy Mueller [facility] MEDICARE SUPPLEMEN [place] MEDEX ANDRY Jarrett Mar 12, 2016 [id number] PRIYANK TURPIN SEPH PATIENT MEDICARE (WNR) MEDICARE (M) PART B May 10, 2004 PART B [id number] [id number] [phone] PRIYANK TURPIN SEPH PATIENT MEDICARE (WNR) MEDICARE (M) PART B May 10, 2004 PART B [id number] [phone] PRIYANK TURPIN SEPH PATIENT MEDICARE (WNR) MEDICARE (M) PART A July 10, 1997 PART A [id number] PRIYANK TURPIN SEPH PATIENT MEDICARE (WNR) MEDICARE (M) PART A July 10, 1997 PART A [id number] [phone] PAPIPRIYANK HARJINDER PATIENT Selected Encounter This section includes the information on record at [place] for the Encounter. Date/Time Encounter Type Encounter Description Reason Pro vider Source IHE Encounter Template Text not used by [place] Advance Directives: All historical and current Section Date Range: From patient's date of to the date document was created. This section includes ALL of a patient's completed or amended [place] Advance and Rescinded Directives. The entries below indicate that a directive exists for the patient, but an actual copy is not included with this document. The data comes from all [place] facilities. Date Advance Directives Provider Source Jun 28, 2009 ADVANCE DIRECTIVE MANUELITO MORELOS
--- OUTSIDE RECORDS SUMMARY | 2024-07-29 15:07 | XMS_ITS | Patient Health Record ---
[facility] Address [address] [place] [address] Care Team Providers Care Senior Technical Analyst Name Role Phone Litzy DUMONT, William Primary Care Provider Hortensia Osborne Unavailable [phone] Allergies Allergen (clinical drug ingredient) Drug/Non Drug [...] food Orally Twice a day Active Zenpep 92507 UNIT as directed Orally Not-Taking Multivitamin Active oxyCODONE HCl 5 MG 1 tablet Orally ever y 6 hrs Not-Taking Creon [address] UNIT Orally Active Amoxicillin Not-Taki ng Atorvastatin [...] Vaccine Route Administration Date Status Comme nts COVID-19 Moderna Vaccine Unknown 12/17/2020 Administered 1st vaccine 04/16/20 2nd dose: 05/14/2020 Influenza Unknown 11/25/2014 Administered Influenza Unknown 12/15/2015 Administered Influenza Unknown 11/13/2016 Administered Influenza Unknown 12/07/2017 Administered Influenza Unknown 12/11/2018 Administered Influenza Unknown 12/14/2022 Administered Social History Tobacco Use: Social History Observation [...] Polyneuropathy due to type 2 diabetes mellitus (086303105) Type 2 diabetes mellitus with diabetic polyneuropathy (E11.42) Active confirmed Problem Ulcer of foot (97251010) Non-pressure chronic ulcer of other part of left foot limited to breakdown of skin (L97.521) Active confirmed Problem Ulcer of toe (010318969) Non-pressure chronic ulcer of other part of right foot limited to breakdown of skin (L97.511) Active confirmed Vital Signs Blood pressure diastolic 80 mm Hg 06/03/2024 Height 5 ft 7 in in 06/03/2024 Blood pressure systolic 130 mm Hg 06/03/2024 Weight 156 lbs 06/03/2024 BMI 24.43 kg/m2 06/03/2024 Procedures Procedure Date Ordered Date Performed Result Body Sit e 39155-KGPA SKIN LESIONS, 2 TO 4 08/24/2023 N/A X8407-FCZEZDOK DYSTROPHIC NAILS ANY # 08/24/2023 N/A 10025-UVBF SKIN LESIONS, 2 TO 4 10/31/2023 N/A X9843-BCKALRML DYSTROPHIC NAILS ANY # 10/31/2023 N/A 02174-VFFJ SKIN LESIONS, 2 TO 4 01/02/2024 N/A Y8464-ANRFLOVH DYSTROPHIC NAILS ANY # 01/02/2024 N/A 10519-NGLI SKIN LESIONS, 2 TO 4 04/02/2024 N/A W6630-BPFKMLCU DYSTROPHIC NAILS ANY # 04/02/2024 N/A 85231-VMHM SKIN LESIONS, 2 TO 4 06/03/2024 N/A P9635-CLGVOGRM DYSTROPHIC NAILS ANY # 06/03/2024 N/A Encounters Encounter [facility] Date [facility] [address] [address] 08/24/2023 Hortensia Black Type 2 diabetes katty itus with diabetic polyneuropathy E11.[address] [address] 10/31/2023 Hortensia Black Type 2 diabetes katty itus with diabetic polyneuropathy E11.[address] [address] 01/02/2024 Hortensia Black Type 2 diabetes katty itus with diabetic polyneuropathy E11.[address] [address] 04/02/2024 Hortensia Black Type 2 diabetes katty itus with diabetic polyneuropathy E11.[address] [address] 06/03/2024 Hortensia Black Type 2 diabetes katty itus with diabetic polyneuropathy E11.42 Assessments Encounter Date Diagnosis (ICD Code) Assessment Notes Treatment Notes Treatment Clinical Notes Section Notes 08/24/2023 Type 2 diabetes mellitus with diabetic [...] Treatment Pending Test Test Name Order Date 19315-Izxg Destruction, 1-14 04/10/2014 52857-Prel Destruction, 1-05/26/2014 69795-Nxgo Destruction, 1-08/07/2014 61612-Dxmx Destruction, 1-10/16/2014 48057-Mbpcsflw Plate 10/16/2014 05838-Osxnmnhm Plate 05/26/2014 31515-Wisoyxbe Plate 12/12/2013 23703-Kbejwshl Plate 08/07/2014 61309-Lnyoizcw Plate 07/16/2015 51030-Fdyhfxga Plate 09/24/2015 57973-Lyuogqly Plate 09/28/2011 54754-Kfcmcyrd Plate 03/28/2012 89679-Wludddnl Plate 09/17/2012 91566-Ukhdtkgl Plate 12/17/2012 10384-Ickdoggj Plate 02/25/2013 08248-Exakrsur Plate 07/22/2013 54664-Bytzkash Plate 12/03/2015 13958-Fryezmis Plate 02/16/2016 46149-Fcozaccb Plate 05/31/2016 80856-Vnhqvtoa Plate 06/25/2018 04646-Yafrmdto Plate 09/25/2018 40459-Aptrpxwb Plate 03/21/2019 06216-Hhthbkao Plate 07/22/2019 13096-Jbkzkzum Plate 04/07/2020 95024-Zertcscw Plate 06/30/2020 83523-Toggddqw Plate 11/23/2020 81494-Bbaozndl Plate 11/09/2021 84093-Tsdjubzm Plate 09/01/2022 38851-Ucinipts Plate 02/24/2014 49943-Jbclaijc Plate 09/30/2013 32036-Ieoyqwcr Plate 05/06/2013 37716-Nzdeewgj Plate 07/09/2012 80321-Psungaho Plate 12/28/2011 40600-Ajornrnb Plate 05/27/2021 84924-Bpnegsao Plate Each Additional 02/2020 78557- Debride <25 sq cm 12/28/2020 17440- Debride <25 sq cm 05/31/2016 44907- Debride <25 sq cm 02/16/2016 28461- Debride <25 sq cm 12/03/2015 73727- Debride <25 sq cm 07/22/2013 01923- Debride <25 sq cm 02/25/2013 63984- Debride <25 sq cm 12/17/2012 07890- Debride <25 sq cm 09/17/2012 33294- Debride <25 sq cm 03/28/2012 10961- Debride <25 sq cm 04/04/2011 58500- Debride <25 sq cm 09/28/2011 06589- Debride <25 sq cm 09/24/2015 80576- Debride <25 sq cm 05/04/2015 96791- Debride <25 sq cm 07/16/2015 42097- Debride <25 sq cm 03/02/2015 68855- Debride <25 sq cm 11/13/2014 39313- Debride <25 sq cm 12/11/2014 44891- Debride <25 sq cm 12/29/2014 25465- Debride <25 sq cm 12/12/2013 75886- Debride <25 sq cm 05/26/2014 08853- Debride <25 sq cm 10/16/2014 03373- Debride <25 sq cm 08/07/2014 27310- Debride <25 sq cm 02/15/2021 70152- Debride <25 sq cm 07/07/2011 59977- Debride <25 sq cm 12/28/2011 28208- Debride <25 sq cm 07/09/2012 40707- Debride <25 sq cm 05/06/2013 79254- Debride <25 sq cm 09/30/2013 49439- Debride <25 sq cm 02/24/2014 31222 I&D ABSCESS- SIMPLE,SINGLE 014 67669 I&D ABSCESS- SIMPLE,SINGLE 015 96220 I&D ABSCESS- SIMPLE,SINGLE 015 94906 I&D ABSCESS- SIMPLE,SINGLE 015 21496 I&D ABSCESS- SIMPLE,SINGLE 013 26906 I&D ABSCESS- SIMPLE,SINGLE 013 87859 I&D ABSCESS- SIMPLE,SINGLE 013 03233-IXRO SKIN LESIONS, 2 TO 4 07/23/19 14 66867-ADXJ SKIN LESIONS, 2 TO 4 01/14/20 11 43923-ZCLR SKIN LESIONS, 2 TO 4 03/02/20 15 92596-YSQS SKIN LESIONS, 2 TO 4 12/30/19 15 57961-EGLH SKIN LESIONS, 2 TO 4 07/16/19 16 05844-HXUT SKIN LESIONS, 2 TO 4 05/04/19 16 59028-NJUW SKIN LESIONS, 2 TO 4 05/27/19 15 33023-JLLQ SKIN LESIONS, 2 TO 4 12/13/19 14 71787-OOWF SKIN LESIONS, 2 TO 4 10/17/19 15 46080-OSTU SKIN LESIONS, 2 TO 4 08/08/19 15 53330-ZYCY SKIN LESIONS, 2 TO 4 12/03/19 16 04816-JTJK SKIN LESIONS, 2 TO 4 02/16/20 16 75298-OIIO SKIN LESIONS, 2 TO 4 06/01/19 17 07110-AJYC SKIN LESIONS, 2 TO 4 08/31/19 17 02003-LCWJ SKIN LESIONS, 2 TO 4 12/20/19 17 72548-OPXY SKIN LESIONS, 2 TO 4 12/28/19 19 56538-ILRT SKIN LESIONS, 2 TO 4 06/26/19 19 57742-OBMP SKIN LESIONS, 2 TO 4 09/26/19 19 59192-MPAW SKIN LESIONS, 2 TO 4 01/09/20 18 93947-KQWA SKIN LESIONS, 2 TO 4 03/23/19 18 81400-ICZM SKIN LESIONS, 2 TO 4 06/02/19 18 63853-VAFN SKIN LESIONS, 2 TO 4 08/27/19 22 71986-BKMV SKIN LESIONS, 2 TO 4 11/10/19 22 40502-QZCN SKIN LESIONS, 2 TO 4 11/24/19 99846-EWXU SKIN LESIONS, 2 TO 4 09/02/19 12001-HQKG SKIN LESIONS, 2 TO 4 05/31/19 23 82095-UHVV SKIN LESIONS, 2 TO 4 09/09/19 21 43828-NBWW SKIN LESIONS, 2 TO 4 07/01/19 62112-VNJB SKIN LESIONS, 2 TO 4 04/07/19 21 49069-FMQT SKIN LESIONS, 2 TO 4 03/21/19 88472-HLLM SKIN LESIONS, 2 TO 4 07/22/19 62733-XMUI SKIN LESIONS, 2 TO 4 09/30/19 20 42953-VFRJ SKIN LESIONS, 2 TO 4 12/09/19 20 82689-NGZI SKIN LESIONS, 2 TO 4 05/06/19 14 28195-FYRZ SKIN LESIONS, 2 TO 4 10/01/19 14 30482-QRCK SKIN LESIONS, 2 TO 4 02/25/20 14 30389-ONMJ SKIN LESIONS, 2 TO 4 06/04/19 81038-NSWK SKIN LESIONS, 2 TO 4 04/09/19 19 80844-VXYL SKIN LESIONS, 2 TO 4 12/02/19 23 39983-WPUL SKIN LESIONS, 2 TO 4 02/17/20 23 25143-ZQVE SKIN LESIONS, 2 TO 4 04/20/19 24 80395-ROLO SKIN LESIONS, 2 TO 4 06/22/19 24 28159-YQVV SKIN LESIONS, 2 TO 4 08/24/19 24 97716-BUWL SKIN LESIONS, 2 TO 4 10/31/19 24 48982-QBCH SKIN LESIONS, 2 TO 4 01/02/20 24 88229-ODSD SKIN LESIONS, 2 TO 4 04/02/19 46073-QJOW SKIN LESIONS, 2 TO 4 05/28/19 86434-HJFT SKIN LESIONS, 2 TO 4 02/16/20 96025-MFXG SKIN LESION 07/07/2011 18886-NBSY SKIN LESION 07/09/2012 82109-YPAJ SKIN LESION 12/28/2011 02897-BDZB SKIN LESION 09/28/2011 27295-FRFB SKIN LESION 04/04/2011 19217-TYAC SKIN LESION 09/17/2012 40204-Ctmk. Subungual Hematoma 3 17880-Ffgv. Subungual Hematoma 1 59949-UFIT NAIL(S) 07/22/2013 59197-MQUT NAIL(S) 01/13/2011 57885-KKKB NAIL(S) 08/07/2014 45129-VXZO NAIL(S) 10/16/2014 67923-QVDH NAIL(S) 12/12/2013 18202-OMGK NAIL(S) 05/26/2014 07314-WBGD NAIL(S) 05/04/2015 81487-CRNA NAIL(S) 07/16/2015 18396-UGED NAIL(S) 09/24/2015 30684-LLAR NAIL(S) 12/29/2014 66920-YHTN NAIL(S) 03/02/2015 16721-LAQB NAIL(S) 02/24/2014 10396-XDCQ NAIL(S) 09/30/2013 24737-DANU NAIL(S) 05/06/2013 K3554-SEPXKMOJ DYSTROPHIC NAILS ANY # K5962-JLCZULOH DYSTROPHIC NAILS ANY # Q1030-CJHYRJBD DYSTROPHIC NAILS ANY # X8935-TEIFFWXX DYSTROPHIC NAILS ANY # R7304-BIMHCKEX DYSTROPHIC NAILS ANY # T8441-CKVYGUZH DYSTROPHIC NAILS ANY # P7991-DNTEZMBN DYSTROPHIC NAILS ANY # G8909-YCURFEMN DYSTROPHIC NAILS ANY # S8064-YJGYPFKO DYSTROPHIC NAILS ANY # Q4523-OOGAGVHP DYSTROPHIC NAILS ANY # Z5346-KURKMUFO DYSTROPHIC NAILS ANY # M3062-FXYDPFNK DYSTROPHIC NAILS ANY # Q9165-EEQXGFSX DYSTROPHIC NAILS ANY # I9976-YLEXNWDZ DYSTROPHIC NAILS ANY # E4204-VZAARFYS DYSTROPHIC NAILS ANY # C3471-PGKWERHJ DYSTROPHIC NAILS ANY # J7741-RSHYGDTV DYSTROPHIC NAILS ANY # C9587-QHRCDAEE DYSTROPHIC NAILS ANY # L0104-XXYFLCVU DYSTROPHIC NAILS ANY # K2130-FWKLYIOY DYSTROPHIC NAILS ANY # T8156-BFJCVVSB DYSTROPHIC NAILS ANY # T9659-JUNRKUIQ DYSTROPHIC NAILS ANY # C5327-POQUPAFK DYSTROPHIC NAILS ANY # Y9367-FGQUVJRH DYSTROPHIC NAILS ANY # G9794-UPAJPYJF DYSTROPHIC NAILS ANY # E1389-GGVCFAJE DYSTROPHIC NAILS ANY # X3478-FQCTTPSQ DYSTROPHIC NAILS ANY # L3008-DENYYMIW DYSTROPHIC NAILS ANY # Y6334-MMKGHAPS DYSTROPHIC NAILS ANY # L0144-SXELJLZJ DYSTROPHIC NAILS ANY # I2315-PCBVVNIY DYSTROPHIC NAILS ANY # L2165-SLIETVJZ DYSTROPHIC NAILS ANY # Q9884-XGGTRAZE DYSTROPHIC NAILS ANY # L1960-MRKIABGB DYSTROPHIC NAILS ANY # K2998-CUHBTQDN DYSTROPHIC NAILS ANY # T8912-DCCJRYWT DYSTROPHIC NAILS ANY # 10 / C6799-FGTHBNDM DYSTROPHIC NAILS ANY # O4294-AVBEEYCX DYSTROPHIC NAILS ANY # K4373-WKIAAPON DYSTROPHIC NAILS ANY # H2116-NIUDXHQY DYSTROPHIC NAILS ANY # D0096-MPQXWRPG DYSTROPHIC NAILS ANY # X9341-DDRSQMEC DYSTROPHIC NAILS ANY # G2643-PPDDAZCO DYSTROPHIC NAILS ANY # Q5315-FWPBZYAR DYSTROPHIC NAILS ANY # F1799-AZLUZPNF DYSTROPHIC NAILS ANY # 16251-DVUIELYC OF HEMATOMA/FLUID 018 Next Appt Details Provider Name:Hortensia Shultz Andrews , 08/05/2024 11:15:00 AM, [address], [place], [address], Provider Name:Hortensia Shultz Andrews , 10/07/2024 11:15:00 AM, [address], [place], [address], Insurance Providers Payer Name Payer Address Payer Phone Subscriber Number Group Number Insured Name Patient Relationship to Insured Coverage Start Date Coverage End Date Medicare National Govt [employer] [address] [place] [address] [id number] Tay Elizabeth Self - patient is the insured [employer] [address] [place] [address] [phone] [id number] Tay Elizabeth Self - patient is the insured Medical (General) History Medical History History ICD Code reflux mumps hypertension diverticulitis diabetic depression cancer back, hip, knee pain Anxiety disorder narrowing of bile duct MRSA left knee Surgical History Surgery Date(Month/Year) back surgery 1973, 1980, 1993 carpal tunnel surgery 2002 kidney surgery 2006 left knee surgery 02/18/15 triple bypass 11/20/2016 Hospitalization History Reason Date(Month/Year) [facility] 10[facility]16[facility]2022 [facility] tumor, bladder 03/24/21 [facility] Left leg christofer in leg 06/2017 Knee spacer 01/13/17 [facility]- Triple Bypass Sx 11/20/2016
--- OUTSIDE RECORDS SUMMARY | 2024-07-29 15:07 | XMS_ITS | Encounter Summary ---
Author Name [facility] Organization [facility] Address [address] [place] [address] Care Team Providers Care Crown Perforator Operator Name Role Phone BONITA HELMS Primary Care Provider UnavailMOHAMUD Banuelos Unavailable Unavailable MISAEL RAMIREZ Unavailable Unavailable BELA RODNEY Unavailable Unavailable APPLE, OLN Unavailable Unavailable PATRICIA YOUSSEF Unavailable Unavailable MARY [...] MEGHANA MEDEX ANDRY E Mar 12, 2016 [id number] PRIYANK ELIZABETH SEPH PATIENT MEDICARE (WNR) MEDICARE (M) PART B May 10, 2004 PART B [id number] PRIYANK ELIZABETH SEPH PATIENT MEDICARE (WNR) MEDICARE (M) PART B May 10, 2004 PART B [id number] [phone] [id number] PRIYANK ELIZABETH SEPH PATIENT MEDICARE (WNR) MEDICARE (M) PART A July 10, 1997 PART A [id number] PRIYANK ELIZABETH SEPH PATIENT MEDICARE (WNR) MEDICARE (M) PART A July 10, 1997 PART A [id number] PRIYANK ELIZABETH SEPH PATIENT Selected Encounter This section includes the information on record at [place] for the Encounter. Date/Time Encounter Type Encounter Description Reason Provider Source Oct 19, 2023 08:27 AM QNHP OL DIG ASSMT&MGMT 21+ [facility] - CLINICAL PHARMACIST ICD-10-CM Z79.899 Other mcfp (current) drug therapy CELE VELÁZQUEZ [facility] Encounter Template Text not used by [place] Assessments - Encounter Diagnoses This section includes the primary and secondary diagnoses documented for the Encounter. Date/Time Primary/Secondary Diagnosis Diagnosis Name Provider Source Oct 19, 2023 10:11 PM PRIMARY Other long term care phlebotomist (current) drug therapy [facility] Plan of Treatment: Future Appointments (+ 6 months) and Future Tests (+/- 45 days) The Plan of Treatment section includes future care activities for the patient from all [facility] treatmentfacilities. This section includes future appointments and future orders which are active, pending or scheduled. Future Appointments This section includes appointments that were scheduled to occur 6 months from the date of the Encounter, up to a maximum of 20 appointments. The data comes from all [place] treatment facilities. Appointment Date/Time Appointment Type Appointme nt Facility Name Nov 27, 2023 11:00 AM AMBULATORY - REHAB MEDICIN [facility] [place] [facility] Nov 28, 2023 10:30 AM AMBULATORY - MEDICINE [facility] [place] [facility] Nov 28, 2023 11:30 AM AMBULATORY - MEDICINE [facility] [place] [facility] Nov 28, 2023 11:45 AM AMBULATORY - MEDICINE [facility] [place] [facility] Jan 09, 2024 02:00 PM AMBULATORY - REHAB MEDICIN E [facility] [place] [facility] Feb 29, 2024 11:00 AM AMBULATORY - REHAB MEDICIN [facility] Mar 17, 2024 11:00 AM AMBULATORY - REHAB MEDICIN E [facility] [place] [facility] Apr 11, 2024 01:00 PM AMBULATORY - REHAB [facility] Social History: Smoking Status (Most current) and Tobacco Use (All prior to encounter date) This section includes the most current, and the historical, smoking and tobacco- related health factors from the [place] facility where the Encounter took place. Current Smoking Status This section includes the most current smoking, or tobacco-related health factor, from the [place] facility where the Encounter took place. Date/Time Current Smoking Status Comment Kathy ute Mar 24, 2022 10:01 AM VA-TOBACCO NEVER USED [facility] Advance Directives: All historical and current Section Date Range: From patient's date of to the date document was created. This section includes ALL of a patient's completed or amended [place] Advance and Rescinded Directives. The entries below indicate that a directive exists for the patient, but an actual copy is not included with this document. The data comes from all [place] facilities. 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 ##please dc fish oil if patient in agreement to stop at this time## /es/ MARY HOLLIS RN,MSN,[facility] PIL[facility] NURSE PRACTITIONER Signed: 10/23/2023 13:38 Receipt Acknowledged By: 10/24/2023 14:21 /es/ Dalton Trinidad RN [facility] urology nurse --- Original Document --- 10/19/23 [facility] MEDICATION REVIEW: Tay Elizabeth Jr. is [...] mg/dL (06/07/23) Alb: 3.7 g/dL (06/07/23) ASSESSMENT: [place] with a history of T1DM on insulin pump s/p pancreatectomy, bladder cancer, chronic pain on opioids, and general anxiety/depressive disorders was admitted to [facility] on 09/19/23. 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 Adherence Concerns: no concerns at this time * manages his own medications 7. 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 While appreciate Rx is for PRN use has been taking on a daily basis. Dose reduction is important to avoid withdrawal symptoms from abrupt discontinuation. - [place]'s last vit D and Ca levels were lower than recommended and he has a significant fall history. Recommend initiation of calcium 500mg/vit D 200 units combination supplement BID. 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 - Please assess 's willingness to receive the RSV vaccine during future visits. Also, per non-VA documentation in [facility] received a dose of the 5752-2407 COVID-19 vaccine on 12/28/22. Please update immunization record in [facility] for completeness. The details of this review were shared with the IDT in order to assist in creating a care plan designed to provide services focused on the health and well being of the patient. Time Spent: 120 min /devon/ CELE VELÁZQUEZ [facility] Clinical Pharmacist Practitioner Signed: 10/22/2023 13:01 Receipt Acknowledged By: 10/23/2023 13:40 /es/ MARY HOLLIS RN,MSN,CO PILOT-C [facility] NURSE PRACTITIONER for BONITA HELMS 10/23/2023 12:10 /es/ Dalton Trinidad RN [facility] urology nurse REESE HOLLIS [facility] [place] [facility] Oct 19, 2023 08:27 AM [facility] MEDICATION MGT NOTE: LOCAL TITLE: [facility] MEDICATION REVIEW STANDARD TITLE: HB MEDICATION MGT NOTE DATE OF NOTE: OCT 19, 2023@08:27 ENTRY DATE: OCT 19, 2023@08:27:13 AUTHOR: CELE VELÁZQUEZ EXP COSIGNER: URGENCY: STATUS: COMPLETED [facility] MEDICATION REVIEW Has ADDENDA Tay Elizabeth [...] and general anxiety/depressive disorders was admitted to [facility] on 09/19/23. 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 While appreciate Rx is for PRN use has been taking on a daily basis. Dose reduction is important to avoid withdrawal symptoms from abrupt discontinuation. 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 - Please assess 's willingness to receive the RSV vaccine during future visits. Also, per non-VA documentation in [facility] received a dose of the 1946-8244 COVID-19 vaccine on 12/28/22. Please update immunization record in [facility] for completeness. The details of this review were shared with the IDT in order to assist in creating a care plan designed to provide services focused on the health and well being of the patient. 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 While appreciate Rx is for PRN use has been taking on a daily basis. Dose reduction is important to avoid withdrawal symptoms from abrupt discontinuation. 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 ##please dc fish oil if patient in agreement to stop at this time## /es/ MARY HOLLIS RN,MSN,[facility] P[facility]OT-C [facility] NURSE PRACTITIONER Signed: 10/23/2023 13:38 Receipt Acknowledged By: * AWAITING SIGNATURE * DALOTN TRINIDAD SARAH J [facility]
--- OUTSIDE RECORDS SUMMARY | 2024-07-29 15:07 | XMS_ITS | Encounter Summary ---
Author Name Department of Vetera Affairs ([place]) Organization Department of [place] [place] Address [address] [place] [address] Care Team Providers Care Chemical Analytical Sampler Name Role Phone BONITA HELMS Primary Care [...] Mueller's Name Patient's Relationship to Policy Mueller [facility] MEDICARE SUPPLEMEN [place] MEDEX ANDRY Jarrett Mar 12, 2016 [id number] PRIYANK TURPIN SEPH PATIENT MEDICARE (WNR) MEDICARE (M) PART B May 10, 2004 PART B [id number] ER20 PRIYANK TURPIN SEPH PATIENT MEDICARE (WNR) MEDICARE (M) PART B May 10, 2004 PART B [id number] [phone] PRIYANK TURPIN SEPH PATIENT MEDICARE (WNR) MEDICARE (M) PART A July 10, 1997 PART A [id number] [id number] PRIYANK TURPIN SEPH PATIENT MEDICARE (WNR) MEDICARE (M) PART A July 10, 1997 PART A [id number] PAPIPRIYANK HARJINDER PATIENT Selected Encounter This section includes the information on record at [place] for the Encounter. Date/Time Encounter Type Encounter Description Reason Pro vider Source IHE Encounter Template Text not used by [place] Advance Directives: All historical and current Section Date Range: From patient's date of to the date document was created. This section includes ALL of a patient's completed or amended [place] Advance and Rescinded Directives. The entries below indicate that a directive exists for the patient, but an actual copy is not included with this document. The data comes from all [place] facilities. Date Advance Directives Provider Source Jun 28, 2009 ADVANCE DIRECTIVE MANUELITO MORELOS
--- OUTSIDE RECORDS SUMMARY | 2024-07-29 15:07 | XMS_ITS | Encounter Summary ---
Author Name Department [facility] [place]) [facility] Address [address] [place] [address] Care Team Providers Care Marketing Research Coordinator Name Role Phone BONITA HELMS Primary [...] Relationship to Policy Mueller [place] [facility] [place] MED[facility] E Mar 12, 2016 [id number] PRIYANK TURPIN SEPH PATIENT MEDICARE (WNR) MEDICARE (M) PART B May 10, 2004 PART B [id number] [id number] [phone] PRIYANK TURPIN SEPH PATIENT MEDICARE (WNR) MEDICARE (M) PART B May 10, 2004 PART B [id number] PRIYANK TURPIN SEPH PATIENT MEDICARE (WNR) MEDICARE (M) PART A July 10, 1997 PART A [id number] [id number] PRIYANK TURPIN PATIENT MEDICARE (WNR) MEDICARE (M) PART A July 10, 1997 PART A [id number] [facility] [phone] PRIYANK TURPIN PATIENT Selected Encounter This section includes the information on record at [place] for the Encounter. Date/Time Encounter Type Encounter Description Reason Provider Source Sep 21, 2023 10:30 AM HEARING AID REPAIR/MODIFYING AUDIOLOGY ICD-10-CM Z46.1 Encounter for fitting and adjustment of hearing aid XAVIER CARMEN Encounter Template Text not used by [place] Assessments - Encounter Diagnoses This section includes [...] care activities for the patient from all [place] treatmentfacilities. This section includes future appointments and future orders which are active, pending or scheduled. Future Appointments This section includes appointments that were scheduled to occur 6 months from the date of the Encounter, up to a maximum of 20 appointments. The data comes from all [place] treatment facilities. Appointment Date/Time Appointment Type Appointme nt Facility Name Oct 16, 2023 10:00 AM AMBULATORY - MEDICINE [facility] Nov 27, 2023 11:00 AM AMBULATORY [facility] [place] [facility] Nov 28, 2023 10:30 AM AMBULATORY - MEDICINE [facility] [place] [facility] Nov 28, 2023 11:30 AM AMBULATORY - MEDICINE [place] [facility] [place] [facility] Nov 28, 2023 11:45 AM AMBULATORY - MEDICINE [place] [facility] [place] [facility] Jan 09, 2024 02:00 PM AMBULATORY - [facility]AB MEDICIN [facility] [place] [facility] Feb 29, 2024 11:00 AM AMBULATORY - REHAB MEDICIN [facility] Mar 17, 2024 11:00 AM AMBULAT[facility] [place] [facility] Social History: Smoking Status (Most current) and Tobacco Use (All prior to encounter date) This section includes the most current, and the historical, smoking and tobacco- related health factors from the [place] facility where the Encounter took place. Current Smoking Status This section includes the most current smoking, or tobacco-related health factor, from the [place] facility where the Encounter took place. Date/Time Current Smoking Status Comment Facil ity Jun 11, 2023 10:30 AM VA-TOBACCO FORMER USER [facility] Tobacco Use History This section includes a history of the smoking, or tobacco-related health factors, that were collected on or before the date of the Encounter. The data comes from the [place] facility where the Encounter took place. Date/Time Smoking Status/Tobacco Use Comment F acility Jun 11, 2023 10:30 AM VA-TOBACCO QUIT 15 YRS OR MORE [facility] Feb 18, 2021 01:30 PM VA-TOBACCO NEVER USED [facility] Jan 13, 2020 10:00 AM VA-TOBACCO NEVER USED [facility] May 09, 2017 11:00 AM QUIT TOBACCO USE > 7 YEARS AGO does not smoke [facility] July 18, 2016 10:35 AM LIFETIME NON-TOBACCO USER [facility] May 11, 2015 10:13 AM QUIT TOBACCO USE > 7 YEARS AGO [facility] Jan 27, 2005 09:24 AM HISTORY OF SMOKING 1987 [facility] Feb 23, 2004 02:53 PM HISTORY OF SMOKING stopped tobacco 17 years ago [facility] Feb 23, 2004 02:53 PM QUIT TOBACCO USE > 7 YEARS AGO stopped tobacco 17 years ago [facility] Feb 14, 2001 09:55 AM HISTORY OF SMOKING [facility] Feb 14, 2001 09:55 AM NON-TOBACCO USER quit x 14yrs. [facility] Advance Directives: All historical and current Section Date Range: From patient's date of to the date document was created. This section includes ALL of a patient's completed or amended [place] Advance and Rescinded Directives. The entries below [...] 08:35 AM AUDIOLOGY NOTE: LOCAL TITLE: AUDIOLOGY [facility] STANDARD TITLE: AUDIOLOGY NOTE DATE OF NOTE: SEP 21, 2023@08:35 ENTRY DATE: SEP 21, 2023@08:35:16 AUTHOR: CELE CPAPS COSIGNER: JOAQUINA SINGLETON URGENCY: STATUS: COMPLETED September 21, 2023 History/Background: Svitlana was seen for a hearing aid follow up at the [facility], accompanied by his . Glenford was scheduled today for routine hearing aid maintenance. stated he has been having difficulty hearing lately. stated he declined cochlear implant consult due to having to travel to [place]. Hearing aids: Deehubs EVOLV AI POWER+ BTE 13s Serial Numbers: [id number] Date Issued: 04/17/2022 Hearing aid check: Both [...] Veterans thinks she knows where it is. Glenford will call the clinic if he is unable to find them. Counseled on accessory start/stop with the VC button for the TV Streamer. He will call the clinic if he has questions. Plan: Svitlana was scheduled for routine maintenance on 02/29/2024 @ 1100 on [facility] order entered. /devon/ CELE CAPPS Audiology Health Water Treatment Specialist Signed: 09/24/2023 07:21 /devon/ HE CEDEÑO, [facility]-A STAFF RADIATION PROTECTION SPECIALIST Cosigned: 09/24/2023 07:56 Receipt Acknowledged By: 09/26/2023 07:24 /devon/ MOHAMUD PRINGLE LEAD ASSEMBLY MACHINE OFFBEARER CELE CAPPS [facility]
--- OUTSIDE RECORDS SUMMARY | 2024-07-29 15:08 | XMS_ITS | Encounter Summary ---
Author Name Department of [place] Affairs ([place]) Organization [facility] Address [address] [place] [address] Care Team Providers Care Plant Packer Name Role Phone BONITA HELMS Primary Care [...] Relationship to Policy Mueller [place] [facility] [place] MEDEX [facility] E Mar 12, 2016 [id number] PRIYANK TURPIN SEPH PATIENT MEDICARE (WNR) MEDICARE (M) PART B May 10, 2004 PART B [id number] ER20 PRIYANK TURPIN SEPH PATIENT MEDICARE (WNR) MEDICARE (M) PART B May 10, 2004 PART B [id number] PRIYANK TURPIN SEPH PATIENT MEDICARE (WNR) MEDICARE (M) PART A July 10, 1997 PART A [id number] ER20 PRIYANK TURPIN PATIENT MEDICARE (WNR) MEDICARE (M) PART A July 10, 1997 PART A [id number] [facility] PRIYANK TURPIN PATIENT Selected Encounter This section includes the information on record at [place] for the Encounter. Date/Time Encounter Type Encounter Description Reason Provider Source Feb 29, 2024 11:00 AM HEARING AID REPAIR/MODIFYING AUDIOLOGY ICD-10-CM Z46.1 Encounter for fitting and adjustment of hearing aid XAVIER CARMEN Encounter Template Text not used by [place] [...] activities for the patient from all [place] treatmentfacilities. This section includes future appointments and [...] AM AMBULATORY - REHAB MEDICIN E [facility] [place] [facility] Apr 11, 2024 01:00 PM AMBULATORY - REHAB MEDICIN [facility] May 06, 2024 10:30 AM AMBULATORY - REHAB MEDICIN [place] [facility] [facility] May 22, 2024 11:30 AM [facility] Jul 08, 2024 01:00 PM AMBULATORY - PSYCHIATRY [facility] July 23, 2024 11:00 AM [facility]UL[facility] August 08, 2024 11:00 AM AMBULATORY - REHAB [facility] Lab Results: +/- 30 days of the encounter This section includes the Chemistry and Hematology Lab Results on record with [place] for the patient. Radiology Reports and Pathology Reports are provided separately, in subsequent sections. Lab Results This section contains the Chemistry/Hematology Results that were resulted 30 days before or 30 daysafter the date of the Encounter. Date/Time Source Result Type Result - Unit Interpretation Reference Range Specimen Type Comment Mar 17, 2024 11:31 AM [place] VITAMIN B12 SERUM Specimen Type: SERUM No comment entered. Ordering Provider: YENI PUENTES Report Released Date/Time: Jun 11, 2023 11:06 AM Reporting Lab: [address] [address] Performing Lab: [address] [address] VITAMIN B12 512 pg/mL 200-900 Mar 17, 2024 11:31 AM [place] TSH SERUM Sp ecimen Type: SERUM No comment entered. Ordering Provider: YENI PUENTES Report Released Date/Time: Jun 11, 2023 11:06 AM Reporting Lab: [address] [address] Performing Lab: [address] [address] TSH 3.25 u[IU]/mL 0.35-5.00 Mar 17, 2024 11:31 AM [place] HEMOGLOBIN A1C PANEL BLOOD Specimen T ype: BLOOD Comment: Values obtained from A1C measurements can vary. For atypical A1C assays, a reported value of 7.0 could actually be between 6.72 and 7.28 if measured by a reference method. A reported value of 9.0 could actually be between 8.73 and 9.27. Ref: http://www.ngsp.org/CAPdata.asp Ordering Provider: YENI PUENTES Report Released Date/Time: Jun 11, 2023 11:06 AM Reporting Lab: [address] [address] Performing Lab: [address] [address] HEMOGLOBIN A1C 7.4 H 4.0-5.6 Mar 17, 2024 11:31 AM [place] FERRITIN SERUM Sp ecimen Type: SERUM No comment entered. Ordering Provider: YENI PUENTES Report Released Date/Time: Jun 11, 2023 11:06 AM Reporting Lab: [facility] [address] [address] Performing Lab: [facility] [address] [address] FERRITIN 57 ng/mL 20-300 Mar 17, 2024 11:31 AM [place] MICROALBUMIN CREATININE RATIO PANEL URINE Specimen Type: URINE No comment entered. Ordering Provider: YENI PUENTES Report Released Date/Time: Jun 11, 2023 11:06 AM Reporting Lab: [facility] [address] [address] Performing Lab: [facility] [address] MICROALBUMIN/CREATININE RATIO 155.3 mg/g H 0-29.9 MICROALBUMIN,QUANTITATIVE 41.2 mg/dL RR UNAVAIL CREATININE URINE 265.23 mg/dL Mar 17, 2024 11:31 AM [place] CALCIUM SERUM Sp ecimen Type: SERUM No comment entered. Ordering Provider: YENI PUENTES Report Released Date/Time: Jun 11, 2023 11:06 AM Reporting Lab: [facility] [address] [address] Performing Lab: [facility] [address] [address] CALCIUM 9.3 mg/dL 8.5-10.2 Mar 17, 2024 11:31 AM [place] URINALYSIS URINE S pecimen Type: URINE Comment: If Glucose = >500 and Ketones are positive, please alert the Physician. Ordering Provider: YENI PUENTES Report Released Date/Time: Jun 11, 2023 11:06 AM Reporting Lab: [facility] [address] Performing Lab: [facility] [address] UA COLOR Yellow Yellow UA APPEARANCE Turbid Clear UA GLUCOSE Normal mg/dL Negative UA KETONES TRACE mg/dL Negative UA BLOOD NEGATIVE mg/dL Negative UA PROTEIN 70 mg/dL Negative UA NITRITE NEGATIVE mg/dL Negative UA BILIRUBIN NEGATIVE mg/dL Negative UA SPECIFIC GRAVITY 1.022 1.016-1.022 UA pH 5.5 5.0-9.0 UA UROBILINOGEN Normal mg/dL <2.0 UA LEUKOCYTE TRACE Negative Mar 17, 2024 11:31 AM [place] LIPID PANEL FASTING SERUM Specimen Ty pe: SERUM No comment entered. Ordering Provider: YENI PUENTES Report Released Date/Time: Jun 11, 2023 11:06 AM Reporting Lab: [address] [address] Performing Lab: [address] [address] CHOLESTEROL 113 mg/dL TRIGLYCERIDE 141 mg/dL 0-150 LDL calculated 57 mg/dL 0-129 CHOL/HDL 4.0 HDL CHOLESTEROL 28 mg/dL L 40-60 Mar 17, 2024 11:31 AM [place] LIVER FUNCTION SERUM Specimen Type: SERUM No comment entered. Ordering Provider: YENI PUENTES Report Released Date/Time: Jun 11, 2023 11:06 AM Reporting Lab: [address] [address] Performing Lab: [address] [address] PROTEIN,TOTAL 7.2 g/dL 6.0-8.3 ALBUMIN 3.9 g/dL 3.5-5.0 ALKALINE PHOSPHATASE 86 U/L 40-150 AST 44 U/L H 5-34 ALT 28 U/L BILIRUBIN, TOTAL 0.4 mg/dL 0.2-1.2 Mar 17, 2024 11:31 AM [place] BASIC METABOLIC PANEL (fasting) SERUM Specimen Type: SERUM No comment entered. Ordering Provider: YENI PUENTES Report Released Date/Time: Jun 11, 2023 11:06 AM Reporting Lab: [address] [address] Performing Lab: [address] [address] UREA NITROGEN 39 mg/dL H 7-25 GLUCOSE 121 mg/dL H 65-100 SODIUM 139 mmol/L 135-145 POTASSIUM 4.2 mmol/L 3.5-5.0 CHLORIDE 102 mmol/L 100-110 CO2 28 meq/L 20-30 CREATININE, Serum 1.83 mg/dL H 0.50-1.40 eGFR(CKD-EPI 2020) 36 mL/min L >60 Mar 17, 2024 11:31 AM [place] URIC ACID SERUM Sp ecimen Type: SERUM No comment entered. Ordering Provider: YENI PUENTES Report Released Date/Time: Jun 11, 2023 11:06 AM Reporting Lab: [address] [address] Performing Lab: [address] [address] URIC ACID 6.4 mg/dL 3.5-7.2 Mar 17, 2024 11:31 AM [place] VITAMIN D (25-OH) SERUM Specimen Type: SERUM No comment entered. Ordering Provider: YENI PUENTES Report Released Date/Time: Jun 11, 2023 11:06 AM Reporting Lab: [address] [address] Performing Lab: [address] [address] VITAMIN D (25-OH) 26 ng/mL 20-50 Mar 17, 2024 11:31 AM [place] MICROSCOPIC AUTOMATED, URINE URINE Sp ecimen Type: URINE Comment: If Glucose = >500 and Ketones are positive, please alert the Physician. Ordering Provider: YENI PUENTES Report Released Date/Time: Jun 11, 2023 11:06 AM Reporting Lab: [address] [address] Performing Lab: [address] [address] UA WBC 0-5 /[HPF] 0-5 UA MUCUS MODERATE /[LPF] Trace UA HYALINE CASTS 5-9 /[LPF] H 0-2 UA RBC 0-2 /[HPF] 0-3 UA SQUAMOUS EPITH FEW /[HPF] Mar 17, 2024 11:31 AM [place] CBC AND DIFF (AUTO) BLOOD Specimen Ty pe: BLOOD No comment entered. Ordering Provider: YENI PUENTES Report Released Date/Time: Jun 11, 2023 11:06 AM Reporting Lab: [facility] [address] [address] Performing Lab: [facility] [address] [address] WBC 6.12 10*3/uL 4.50-11.00 RBC 4.58 10*6/uL [...] 0.5 0.0-0.7 IMMATURE GRAN, ABS 0.03 10*3/uL 0.00-0.0 6 NRBC % 0.0 0.0-0.0 NRBC, ABS 0.00 [...] 11, 2023 10:30 AM VA-TOBACCO FORMER USER [place] Tobacco Use History This section includes a history of the smoking, or tobacco-related health factors, that were collected on or before the date of the Encounter. The data comes from the [place] facility where the Encounter took place. Date/Time Smoking Status/Tobacco Use Comment F acility Jun 11, 2023 10:30 AM VA-TOBACCO QUIT 15 YRS OR MORE [facility] Feb 18, 2021 01:30 PM VA-TOBACCO NEVER USED [place] Jan 13, 2020 10:00 AM VA-TOBACCO NEVER USED [place] May 09, 2017 11:00 AM QUIT TOBACCO USE > 7 YEARS AGO does not smoke [place] July 18, 2016 10:35 AM LIFETIME NON-TOBACCO USER [place] May 11, 2015 10:13 AM QUIT TOBACCO USE > 7 YEARS AGO [place] Jan 27, 2005 09:24 AM HISTORY OF SMOKING 1987 [place] Feb 23, 2004 02:53 PM HISTORY OF SMOKING stopped tobacco 17 years ago [place] Feb 23, 2004 02:53 PM QUIT TOBACCO USE > 7 YEARS AGO stopped tobacco 17 years ago [place] Feb 14, 2001 09:55 AM HISTORY OF SMOKING [place] Feb 14, 2001 09:55 AM NON-TOBACCO USER quit x 14yrs. [facility] [facility] Advance Directives: All historical and current Section Date Range: From patient's date of to the date document was created. This section includes ALL of a patient's completed or amended [place] Advance and Rescinded Directives. The entries below indicate that a directive exists for the patient, but an actual copy is not included with this document. The data comes from all [facility]. Date Advance Directives Provider Source Jun 28, 2009 ADVANCE DIRECTIVE MANUELITO MORELOS Encounter Notes: All associated encounter notes This section contains the clinical notes associated to the Encounter. Date/Time Encounter Note(s) Provider Source Feb 29, 2024 07:28 AM AUDIOLOGY NOTE: LOCAL TITLE: AUDIOLOGY HEALTH [facility] EXTR[facility] STANDARD TITLE: AUDIOLOGY NOTE DATE OF NOTE: FEB 29, 2024@07:28 ENTRY DATE: FEB 29, 2024@07:28:57 AUTHOR: CELE CAPPS COSIGNER: XAVIER CARMEN URGENCY: STATUS: COMPLETED February 29, 2024 History/Background: Cherry was seen for a hearing aid follow up at the [facility], accompanied by his . The presented today [...] right. Hearing aids: Ravin EVOLV AI POWER+ Luminary MicroEs Serial Numbers: [id number] Battery size: 13 Date Issued: 04/17/2022 AND Hearing aids: Ravin GISEL EDGE AI BTEs Serial Numbers: [id number] Battery size: 13 Date Issued: 06/04/2020 Hearing aid check: Both sets of hearing aids were cleaned and checked. Replaced tubes, tonehooks and nato covers. Biologic check was good for all 4 hearing aids. The Cherry's last impressions were taken in 2012. It is recommended that the Cherry return to the clinic to have new ear impressions taken for an updated secure fit, as weight loss is likely contributing to the current loose fit. Plan: RTC for routine maintenance on 03/17/2024 @ 1100 in [place] for new ear impressions. The Cherry is requesting earmolds for his Ravin Evolv AND Gisel hearing aids. /devon/ CELE CAPPS Audiology Health Watch And Clock Repairer Signed: 02/29/2024 13:43 /es/ XAVIER Barkley, [facility]-A CHIEF, AUDIOLOGY/WEASAND TRIMMER Cosigned: 02/29/2024 14:46 Receipt Acknowledged By: 02/29/2024 15:16 /es/ FINESSE GILBERT SUPERVISORY PRIMER ASSEMBLER CELE CAPPS [place]
--- OUTSIDE RECORDS SUMMARY | 2024-07-29 15:08 | XMS_ITS | Continuity of Care Document ---
Author Organization [facility] [employer] [facility] she[facility] [address] [place] [address] Phone [phone] Care Team Providers Care Computer Aide Name Role Phone William Mcghee M.D. Care Team Information Rece iver [phone] Problems Active Problems Provider Date Type 1 diabetes mellitus Richy Davies M.D. Onset: 01/09/2022 Anxiety Richy Davies M.D. Onset: 1 H/O: depression Richy Davies [...] needed 25tabs Richy Davies M.D. 12/13/2023 Zolpidem [id number] Tablets take 1 tablet by mouth at bedtime 30tabs Ricyh Davies M.D. 12/13/2023 [id number]/ML Solution inject 3 times daily before meals via insulin pump 30ml Richy Davies M.D. 11/08/2023 Tamsulosin HCL0.4mg Capsules 1 by mouth every day Richy Davies M.D. 05/30/2023 Metoprolol Kbxhyjvg08yq Tablets 1/2 tab by mouth twice a day 56tabs Richy Davies M.D. 11/22/2022 Sertraline [id number] Tablets 1 by mouth every day 90tabs Richy Davies M.D. 11/22/20[id number] Caps [address] Part 3 capsules tid Richy Davies M.D. 11/22/2022 Atorvastatin Bekrise92xz Tablets 1 by mouth every day 90tabs Richy Davies M.D. 11/22/2022 Vitamin D (Cholecalciferol)50mc g (1999 Ut) Capsules 1 by mouth every day Richy Davies M.D. 11/22/2022 Contour Next Blood Glucose TestStrips Test 3 Times A Day Dx: E11.8 300units E11.8 Richy Davies M.D. Amlodipine Xdzburvu76pt Tablets Take 1 Tablet By Mouth Every Day Unknown History Medications Hydrocodone-Acetaminophen7.5-325mg Tablets Richy Davies M.D. 03/26/2024 - 03/26/2024 Vital Signs Date Vital Result Comment 07/23/2024 10:58am BP Systolic 110 mmHg BP Diastolic 70 mmHg Heart Rate 72 /min Height 65 inches 5'5 Weight 157.00 lb BMI (Body Mass Index) 26.1 kg/m2 Results Test Acquired Date Facility Test Result H/L Range N ote Hemoglobin A1c 07/23/2024 Inhouse Hemoglobin A1c 7.4 Glucose Fingerstick 07/23/2024 Inhouse Glucose Fingerstick 144 Glucose Fingerstick 03/26/2024 Inhouse Glucose Fingerstick 226 Glucose Fingerstick 12/13/2023 Inhouse Glucose Fingerstick 216 Hemoglobin A1c 12/13/2023 Inhouse Hemoglobin A1c 7.6 Hemoglobin A1c 09/05/2023 Inhouse Hemoglobin A1c 7.9% Glucose Fingerstick 09/05/2023 Inhouse Glucose Fingerstick 243 Glucose Fingerstick 05/30/2023 Inhouse Glucose Fingerstick 157 Hemoglobin A1c 05/30/2023 Inhouse Hemoglobin A1c 10.5% Hemoglobin A1c 11/22/2022 Inhouse Hemoglobin A1c 8.9% Glucose Fingerstick 11/22/2022 Inhouse Glucose Fingerstick 286 Hemoglobin A1c 08/14/2022 Inhouse Hemoglobin A1c 8.5% Glucose Fingerstick 08/14/2022 Inhouse Glucose Fingerstick 350 Hemoglobin A1c 05/11/2022 Inhouse Hemoglobin A1c 8.0% Glucose Fingerstick 05/11/2022 Inhouse Glucose Fingerstick 147 Hemoglobin A1c 01/09/2022 Inhouse Hemoglobin A1c 8.9% Glucose Fingerstick 01/09/2022 Inhouse Glucose Fingerstick 283 Procedures Date Code Description Status 07/23/2024 70930 Glucose Monitoring Interpeta tion And Report Completed 03/26/2024 89259 Glucose Monitoring Interpeta tion And Report Completed 09/05/2023 12999 Glucose Monitoring Interpeta tion And Report Completed 05/30/2023 18063 Glucose Monitoring Interpeta tion And Report Completed 11/22/2022 47835 Glucose Monitoring Interpeta tion And Report Completed 05/11/2022 42101 Glucose Monitoring Interpeta tion And Report Completed 01/09/2022 76110 Glucose Monitoring Interpeta tion And Report Completed Medical Devices Description No Information Available Encounters Type Date Location Provider Dx Diagnosis Office Visit 07/23/2024 11:00a Main Office Richy Davies M.D. E10.9 Type 1 diabetes mellitus without complications N18.30 Chronic kidney disea se, stage 3 unspecified Assessments Date Code Description Provider 07/23/2024 E10.9 Type 1 diabetes mellitus without complications Richy Davies M.D. 07/23/2024 N18.30 Chronic kidney disease stage 3 Richy Davies M.D. Plan of Treatment Future Appointment(s):* 11/26/2024 11:15 am - Richy Davies M.D. at Main Office 07/23/2024 - Richy Davies M.D.* E10.9 Type 1 diabetes mellitus without complications * N18.30 Chronic kidney disease stage 3 Functional Status Description No Information Available Mental Status Description No Information Available Referrals Refer to Reason for Referral Status Appt Richy Henry M.D. Created [address] [place] [address] Drive [address] [place] [address] [phone]
--- OUTSIDE RECORDS SUMMARY | 2024-07-29 15:08 | XMS_ITS ---
Author Name [facility] [place] Organization [facility] [place] Address [address] [place] [address] Care Team Providers Care Clasp Machine Operator Name Role Phone BONITA HELMS Primary [...] Mueller's Name Patient's Relationship to Policy Mueller [facility] MEDICARE SUPPLEMEN MEGHANA MEDEX ANDRY E Mar 12, 2016 [id number] PRIYANK TURPIN SEPH PATIENT MEDICARE (WNR) MEDICARE (M) PART B May 10, 2004 PART B [id number] [phone] PRIYANK TURPIN SEPH PATIENT MEDICARE (WNR) MEDICARE (M) PART B May 10, 2004 PART B [id number] [phone] PRIYANK TURPIN SEPH PATIENT MEDICARE (WNR) MEDICARE (M) PART A July 10, 1997 PART A [id number] PRIYANK TURPIN PATIENT MEDICARE (WNR) MEDICARE (M) PART A July 10, 1997 PART A [id number] PRIYANK TURPIN PATIENT Selected Encounter This section includes the information on record at [place] for the Encounter. Date/Time Encounter Type Encounter Description Reason Provider Source May 22, 2024 11:30 AM OFFICE O/P EST LOW 20 MIN PODIATRY ICD-10-CM M21.762 Unequal limb length (acquired), left tibia NAHID RAMOS IHE Encounter Template Text not used by [place] Assessments - Encounter Diagnoses This section includes the primary and secondary diagnoses documented for the Encounter. Date/Time Primary/Secondary Diagnosis Diagnosis Name Provider Source Jun 19, 2024 01:55 PM PRIMARY Unequal limb length (acquired), left tibia NAHID RAMOS [facility] Plan of Treatment: Future Appointments (+ 6 months) and Future Tests (+/- 45 days) The Plan of Treatment section includes future care activities for the patient [facility]. This section includes future appointments and future orders which are active, pending or scheduled. Future Appointments This section includes appointments that were scheduled to occur 6 months from the date of the Encounter, up to a maximum of 20 appointments. The data comes from all [place] treatment facilities. Appointment Date/Time Appointment Type Appointme nt Facility Name Jul 08, 2024 01:00 PM AMBULATORY - PSYCHIATRY [facility] July 23, 2024 11:00 AM AMBULATORY - MEDICINE [facility] August 08, 2024 11:00 AM AMBULATORY - RE[facility]AB [facility] Sep 03, 2024 12:30 PM AMBULATORY - MEDICINE [facility] Active, Pending, and Scheduled Orders This section includes a listing of several types of active, pending, and scheduled orders, including clinic medications orders, diagnostic test orders, procedure orders and consult orders; where the start date of the order is 45 days before the date of the Encounter or 45 days after the date of theEncounter. The data comes from all [place] treatment [facility]. Test Date/Time Test Type Test Details Facility Name Jun 03, 2024 10:59 AM Consult Order COMMUNITY CARE-ENDOCRINE Cons Refrigeration [facility] Jul 04, 2024 12:00 AM Laboratory - Chemistry Order ALCOHOL, ETHYL URINE PANEL UR[facility]DRUG) [facility] Jul 04, 2024 12:00 AM Laboratory - Chemistry Order AMPHETAMINES SCREEN PANEL URINE (DRUG) [facility] Jul 04, 2024 12:00 AM Laboratory - Chemistry Order FENTANYL SCREEN PANEL URINE (DRUG) [facility] Jul 04, 2024 12:00 AM Laboratory - Chemistry Order BENZODIAZEPINES SCREEN PANEL URINE (DRUG) [facility] Jul 04, 2024 12:00 AM Laboratory - Chemistry Order BUPRENORPHINE SCREEN PANEL URINE (DRUG) [facility] Jul 04, 2024 12:00 AM Laboratory - Chemistry Order CANNABINOIDS SCREEN PANEL URINE (DRUG) [facility] Jul 04, 2024 12:00 AM Laboratory - Chemistry Order COCAINE SCREEN PANEL URINE (DRUG) [facility] Jul 04, 2024 12:00 AM Laboratory - Chemistry Order OPIATES SCREEN PANEL URINE (DRUG) [facility] Jul 04, 2024 12:00 AM Laboratory - Chemistry Order OXYCODONE SCREEN PANEL URINE (DRUG) [facility] Jul 04, 2024 12:00 AM Laboratory - Chemistry Order METHADONE SCREEN (CH) [facility]INE (DRUG) [facility] Social History: Smoking Status (Most current) and Tobacco Use (All prior to encounter date) This section includes the most current, and the historical, smoking and tobacco- related health factors from the PR facility where the Encounter took place. Current Smoking Status This section includes the most current smoking, or tobacco-related health factor, from the PR facility where the Encounter took place. Date/Time Current Smoking Status Comment Kathy unger Mar 24, 2022 10:01 AM PR-TOBACCO NEVER USED [facility] Advance Directives: All historical and current Section Date Range: From patient's date of to the date document was created. This section includes ALL of a patient's completed or amended VA Advance and Rescinded Directives. The entries below indicate that a directive exists for the patient, but an actual copy is not included with this document. The data comes from all PR facilities. Date Advance Directives Provider Source Jun 28, 2009 ADVANCE DIRECTIVE MORELOSMANUELITO Encounter Notes: All associated encounter notes This section contains the clinical notes associated to the Encounter. Date/Time Encounter Note(s) Provider Source May 22, 2024 11:55 AM PODIATRY NOTE: LOCAL TITLE: PODIATRY NOTE STANDARD TITLE: PODIATRY NOTE DATE OF NOTE: MAY 22, 2024@11:55 ENTRY DATE: MAY 22, 2024@11:55:30 AUTHOR: NAHID RAMOS EXP COSIGNER: URGENCY: STATUS: COMPLETED Podiatry [facility] Follow up Provider: Nahid Ramos Date: MAY 22, 2024 CAROLYNN TURPIN [address] [facility] [place] [address] May 84 MALE [phone] PATIENT PHONE - Primary Care: BONITA HELMS [...] and the sneakers are far too loose. 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30) 36 06/06/2007 ALISON VILCHIS P OD Refractive error (ICD-9-CM 367.9) 3 06/06/2007 ALISON VILCHIS OD Cataract, Cortical (Senile) 366.15 06/06/2007 ALISON VILCHIS OD Generalized anxiety disorder R69. 07/18/2016 ALTAGRACIA FONG Pancreatitis (SNOMED CT 74836380) K 07/02/2018 YENI PUENTES ENDOSCOPY 799.9 03/21/2011 YENI PUENTES Hematuria R31.9 02/18/2021 YENI PUENTES Foot drop 799.9 04/03/2013 YENI PUENTES Trochanteric Bursitis 799.9 04/07/2008 YENI PUENTES Screening for Malignant Neoplasms o 05/25/2014 YENI PUENTES SENSORNEUR HEAR LOSS NOS 389.10 05/04/2006 YENI PUENTES Gastroesophageal Reflux Disorder 53 05/25/2014 YENI PUENTES Hypertension (SNOMED CT 43643127) I 12/25/2014 YENI PUENTES Depressive Disorder NOS 311. 06/03/2004 ALTAGRACIA FONG Diabetes mellitus (SNOMED CT 162309 12/25/2014 YENI PUENTES HYPERLIPIDEMIA NEC/NOS 272.4 05/25/2014 [...] complete. Please check JLV. FACILITY ALLERGY/ADR -------- [facility] CONTRAST MEDIA [facility] [place] [facility] CONTRAST MEDIA, OTHER [facility] [place] [facility] GUAFENESIN DEXTROMETHORPHAN SYRUP [facility] [place] [facility] RADIOLOGICAL/CONTRAST MEDIA PE: Elderly male 84 [...] PODIATRY ATTENDING Signed: 05/23/2024 15:19 NAHID RAMOS [facility] [place] [facility]
--- OUTSIDE RECORDS SUMMARY | 2024-07-29 15:08 | XMS_ITS ---
Author Name [facility] [place] Organization [facility] [place] [facility] [place] Address [address] [place] [address] Care Team Providers Care Pluck Separator Name Role Phone BONITA HELMS Primary [...] Mueller [facility] MEDICARE SUPPLEMEN MEGHANA MEDEX ANDRY E Mar 12, 2016 [id number] PRIYANK TURPIN SEPH PATIENT MEDICARE (WNR) MEDICARE (M) PART B May 10, 2004 PART B [id number] PRIYANK TURPIN SEPH PATIENT MEDICARE (WNR) MEDICARE (M) PART B May 10, 2004 PART B [id number] PRIYANK TURPIN SEPH PATIENT MEDICARE (WNR) MEDICARE (M) PART A July 10, 1997 PART A [id number] ER20 [id number] PRIYANK TURPIN PATIENT MEDICARE (WNR) MEDICARE (M) PART A July 10, 1997 PART A [id number] PRIYANK TURPIN PATIENT Selected Encounter This section includes the information on record at [place] for the Encounter. Date/Time Encounter Type Encounter Description Reason Provider Source Oct 15, 2023 10:30 AM HHCP-SERV OF OT,EA 15 MIN [facility]PC - THERAPIST ICD-10-CM R26.9 Unspecified abnormalities of gait and mobility PRINCESS FRANCO E Encounter Template Text not used by [place] Assessments - Encounter Diagnoses This section includes the primary and secondary diagnoses documented for the Encounter. Date/Time Primary/Secondary Diagnosis Diagnosis Name Provider Source Oct 15, 2023 05:45 PM PRIMARY Unspecified abnormalities of gait and mobility PRINCESS FRANCO [place] [facility] [place] [facility] Plan of Treatment: Future Appointments (+ 6 months) and Future Tests (+/- 45 days) The Plan of Treatment section includes future care activities for the patient from all [place] treatmentfacilities. This section includes future appointments and [...] 16, 2023 10:00 AM AMBULATORY - MEDICINE [facility] Nov 27, 2023 11:00 AM AMBULATORY - [facility]AB [facility]ICIN [facility] [place] [facility] Nov 28, 2023 10:30 AM AMBULATORY - MEDICINE [facility] [place] [facility] Nov 28, 2023 11:30 AM AMBULATORY - MEDICINE [facility] [place] [facility] Nov 28, 2023 11:45 AM AMBULATORY - MEDICINE [facility] [place] [facility] Jan 09, 2024 02:00 PM AMBULATORY - REHAB MEDICIN [facility] [place] [facility] Feb 29, 2024 11:00 AM AMBULATORY - [facility]AB [facility] Mar 17, 2024 11:00 AM AMBULATORY - [facility] [place] [facility] Apr 11, 2024 01:00 PM AMBULATORY - REHAB [facility] Social History: Smoking Status (Most current) and Tobacco Use (All prior to encounter date) This section includes the most current, and the historical, smoking and tobacco- related health factors from the [place] facility where the Encounter took place. Current Smoking Status This section includes the most current smoking, or tobacco-related health factor, from the [place] facility where the Encounter took place. Date/Time Current Smoking Status Comment Kathy arguelloy Mar 24, 2022 10:01 AM VA-TOBACCO NEVER USED [facility] Advance Directives: All historical and [...] Generalized anxiety disorder 14. Pancreatitis (SNOMED CT 87308035) 15. ENDOSCOPY Endoscopy JAN 16 privately (pt. [...] of colon colonoscopy done OCT 14 at [facility] NEG CRC - repeat 2009; paper report in paper Health records pending one more colonoscopy in 2014 20. SENSORNEUR HEAR LOSS NOS subjective tinnitus 21. Gastroesophageal Reflux Disorder no hx of ulcer, gi bleed or scope. 22. Hypertension (SNOMED CT 25589408) +Renal Cysts Bilat (US OCT 16); refer URO to R/O RCC Post-Op Dx of Left Renal Mass was Neg CA (Surg FEB 15, [facility] Proteinuria; saw private Nephro APR 22, Dr Souza [phone] 23. Depressive Disorder NOS 24. Diabetes mellitus (SNOMED CT 50226798) no DR per retinal exam on AUGUST 15 secondary Proteinuria ; Stable Renal Function as of APR 22 on Percutaneous Insulin Pump as of SEPTEMBER 20 25. HYPERLIPIDEMIA NEC/NOS WHAT MATTERS What Matters was addressed at this visit. Comment: remain living in home with as independently as possible MOBILITY -------- Mobility was addressed at this visit. Comment: JH-HLM score 7 VITALS: not formally assessed SOCIAL HISTORY/DEMOGRAPHICS: is an 83 yo male who lives [...] to basement with rails but difficult for [place] to navigate Railings at all stair locations [...] Does the patient/client have any cultural and hindu beliefs, emotional barriers, physical or cognitive limitations, [...] regarding tripping hazards, ramp not ADA Assessment/Recommendations: is highly participatory in self-care and home management tasks. He manages his own medication and continues to drive, despite inability to bend left knee. He ambulates with a Rollator or a cane and has a scooter for community mobility when indicated. reports they have tried a homemaker in the past but did not feel it was helpful. [place] would benefit from a few home safety modifications including a bed transfer handle, toilet safety rails, a new shower seat with arms and back, and possibly a new ramp. Will also explore feasibility of stair glide for safe use of basement. GOALS: [place] will: 1). receive ramp assessment and proceed [...] and clinical diagnosis code. /devon/ Princess Franco [facility] Occupational Therapist Signed: 10/15/2023 17:45 Receipt Acknowledged By: 10/18/2023 16:35 /devon/ BONITA HELMS [facility] NURSE PRACTITIONER PRINCESS FRANCO [facility]
--- OUTSIDE RECORDS SUMMARY | 2024-07-29 15:08 | XMS_ITS | Encounter Summary ---
Author Name Department of Vetera Affairs (ID) Organization Department of [facility], [place] Affairs (ID) Address [address] [place] [address] Care Team Providers Care Business Planning Manager Name Role Phone BONITA HELMS Primary [...] Relationship to Policy Mueller BCBS [place] MEDICARE [facility] [place] MEDEX [facility] E Mar 12, 2016 [id number] PRIYANK TURPNI SEPH PATIENT MEDICARE (WNR) MEDICARE (M) PART B May 10, 2004 PART B [id number] PRIYANK TURPNI SEPH PATIENT MEDICARE (WNR) MEDICARE (M) PART B May 10, 2004 PART B [id number] PRIYANK TURPIN SEPH PATIENT MEDICARE (WNR) MEDICARE (M) PART A July 10, 1997 PART A [id number] PRIYANK TURPIN PATIENT MEDICARE (WNR) MEDICARE (M) PART A July 10, 1997 PART A [id number] [facility] PRIYANK TURPIN PATIENT Selected Encounter This section includes the information on record at ID for the Encounter. Date/Time Encounter Type Encounter Description Reason Provider Source Apr 11, 2024 01:00 PM HEARING AID REPAIR/MODIFYING AUDIOLOGY ICD-10-CM Z46.1 Encounter for fitting and adjustment of hearing aid ALEXANDRO KAT Encounter Template Text not used by ID Assessments - Encounter Diagnoses This section includes the primary and secondary diagnoses documented for the Encounter. Date/Time Primary/Secondary Diagnosis Diagnosis Name Provider Source Apr 11, 2024 01:29 PM PRIMARY Encounter for fitting and adjustment of hearing aid CELE CAPPS Apr 11, 2024 01:29 PM SECONDARY Sensorineural hearing loss, bilateral CELE CAPPS SHANKAR Plan of Treatment: Future Appointments (+ 6 months) and Future Tests (+/- 45 days) The Plan of Treatment section includes future care activities for the patient from all [facility]. This section includes future appointments and future orders which are active, pending or scheduled. Future Appointments This section includes appointments that were scheduled to occur 6 months from the date of the Encounter, up to a maximum of 20 appointments. The data comes from all ID treatment facilities. Appointment Date/Time Appointment Type Appointme nt Facility Name May 06, 2024 10:30 AM [facility] May 22, 2024 11:30 AM [facility] Jul 08, 2024 01:00 PM AMBULATORY - PSYCHIATRY [facility] July 23, 2024 11:00 AM [facility] August 08, 2024 11:00 AM AMBULATORY - REHAB MEDICIN E [facility] Sep 03, 2024 12:30 PM AMBULATORY - MEDICINE [facility] Lab Results: +/- 30 days of the encounter This section includes the Chemistry and Hematology Lab Results on record with ID for the patient. Radiology Reports and Pathology Reports are provided separately, in subsequent sections. Lab Results This section contains the Chemistry/Hematology Results that were resulted 30 days before or 30 daysafter the date of the Encounter. Date/Time Source Result Type Result - Unit Interpretation Reference Range Specimen Type Comment Mar 17, 2024 11:31 AM [facility] VITAMIN B12 SERUM Specimen Type: SERUM No comment entered. Ordering Provider: YENI PUENTES Report Released Date/Time: Jun 11, 2023 11:06 AM Reporting [facility] [address] [address] Performing Lab: [facility] [address] [address] VITAMIN B12 512 pg/mL 200-900 Mar 17, 2024 11:31 AM [facility] FERRITIN SERUM Sp ecimen Type: SERUM No comment entered. Ordering Provider: YENI PUENTES Report Released Date/Time: Jun 11, 2023 11:06 AM Reporting [facility] [address] [address] Performing Lab: [facility] [address] [address] FERRITIN 57 ng/mL 20-300 Mar 17, 2024 11:31 AM [facility] TSH SERUM Sp ecimen Type: SERUM No comment entered. Ordering Provider: YENI PUENTES Report Released Date/Time: Jun 11, 2023 11:06 AM Reporting Lab: [facility] [address] [address] Performing Lab: [address] [address] TSH 3.25 u[IU]/mL 0.35-5.00 Mar 17, 2024 11:31 AM [facility] HEMOGLOBIN A1C PANEL BLOOD Specimen T ype: [...] Jun 11, 2023 11:06 AM Reporting Lab: [facility] [address] [address] Performing [facility]: [facility] [address] [address] HEMOGLOBIN A1C 7.4 H 4.0-5.6 Mar 17, 2024 11:31 AM [facility] MICROALBUMIN CREATININE RATIO PANEL URINE Specimen Type: URINE No comment entered. Ordering Provider: YENI PUENTES Report Released Date/Time: Jun 11, 2023 11:06 AM Reporting Lab: [facility] [address] [address] Performing [facility]: [facility] [address] MICROALBUMIN/CREATININE RATIO 155.3 mg/g H 0-29.9 MICROALBUMIN,QUANTITATIVE 41.2 mg/dL RR UNAVAIL CREATININE URINE 265.23 mg/dL Mar 17, 2024 11:31 AM [facility] CALCIUM SERUM Sp ecimen Type: SERUM No comment entered. Ordering Provider: YENI PUENTES Report Released Date/Time: Jun 11, 2023 11:06 AM Reporting Lab: [facility] [address] [address] Performing [facility]: [facility] [address] CALCIUM 9.3 mg/dL 8.5-10.2 Mar 17, 2024 11:31 AM [facility] URINALYSIS URINE S pecimen Type: URINE Comment: If Glucose = >500 and Ketones are positive, please alert the Physician. Ordering Provider: YENI PUENTES Report Released Date/Time: Jun 11, 2023 11:06 AM Reporting Lab: [facility] [address] [address] Performing [facility]: [facility] [address] UA COLOR Yellow Yellow UA APPEARANCE Turbid Clear UA GLUCOSE Normal mg/dL Negative UA KETONES TRACE mg/dL Negative UA BLOOD NEGATIVE mg/dL Negative UA PROTEIN 70 mg/dL Negative UA NITRITE NEGATIVE mg/dL Negative UA BILIRUBIN NEGATIVE mg/dL Negative UA SPECIFIC GRAVITY 1.022 1.016-1.022 UA pH 5.5 5.0-9.0 UA UROBILINOGEN Normal mg/dL <2.0 UA LEUKOCYTE TRACE Negative Mar 17, 2024 11:31 AM [facility] LIPID PANEL FASTING SERUM Specimen Ty pe: SERUM No comment entered. Ordering Provider: YENI PUENTES Report Released Date/Time: Jun 11, 2023 11:06 AM Reporting Lab: [address] [address] Performing Lab: [address] [address] CHOLESTEROL 113 mg/dL TRIGLYCERIDE 141 mg/dL 0-150 LDL calculated 57 mg/dL 0-129 CHOL/HDL 4.0 HDL CHOLESTEROL 28 mg/dL L 40-60 Mar 17, 2024 11:31 AM [facility] LIVER FUNCTION SERUM Specimen Type: SERUM No comment entered. Ordering Provider: YENI PUENTES Report Released Date/Time: Jun 11, 2023 11:06 AM Reporting Lab: [address] [address] Performing Lab: [address] [address] PROTEIN,TOTAL 7.2 g/dL 6.0-8.3 ALBUMIN 3.9 g/dL 3.5-5.0 ALKALINE PHOSPHATASE 86 U/L 40-150 AST 44 U/L H 5-34 ALT 28 U/L BILIRUBIN, TOTAL 0.4 mg/dL 0.2-1.2 Mar 17, 2024 11:31 AM [facility] BASIC METABOLIC PANEL (fasting) SERUM Specimen Type: SERUM No comment entered. Ordering Provider: YENI PUENTES Report Released Date/Time: Jun 11, 2023 11:06 AM Reporting Lab: [address] [address] Performing Lab: [address] [address] UREA NITROGEN 39 mg/dL H 7-25 GLUCOSE 121 mg/dL H 65-100 SODIUM 139 mmol/L 135-145 POTASSIUM 4.2 mmol/L 3.5-5.0 CHLORIDE 102 mmol/L 100-110 CO2 28 meq/L 20-30 CREATININE, Serum 1.83 mg/dL H 0.50-1.40 eGFR(CKD-EPI 2020) 36 mL/min L >60 Mar 17, 2024 11:31 AM [facility] URIC ACID SERUM Sp ecimen Type: SERUM No comment entered. Ordering Provider: YENI PUENTES Report Released Date/Time: Jun 11, 2023 11:06 AM Reporting Lab: [address] [address] Performing Lab: [address] [address] URIC ACID 6.4 mg/dL 3.5-7.2 Mar 17, 2024 11:31 AM [facility] VITAMIN D (25-OH) SERUM Specimen Type: SERUM No comment entered. Ordering Provider: YENI PUENTES Report Released Date/Time: Jun 11, 2023 11:06 AM Reporting Lab: [address] [address] Performing Lab: [address] [address] VITAMIN D (25-OH) 26 ng/mL 20-50 Mar 17, 2024 11:31 AM [facility] MICROSCOPIC AUTOMATED, URINE URINE Sp ecimen Type: URINE Comment: If Glucose = >500 and Ketones are positive, please alert the Physician. Ordering Provider: YENI PUENTES Report Released Date/Time: Jun 11, 2023 11:06 AM Reporting Lab: [address] [address] Performing Lab: [address] [address] UA WBC 0-5 /[HPF] 0-5 UA MUCUS MODERATE /[LPF] Trace UA HYALINE CASTS 5-9 /[LPF] H 0-2 UA RBC 0-2 /[HPF] 0-3 UA SQUAMOUS EPITH FEW /[HPF] Mar 17, 2024 11:31 AM [facility] CBC AND DIFF (AUTO) BLOOD Specimen Ty pe: BLOOD No comment entered. Ordering Provider: YENI PUENTES Report Released Date/Time: Jun 11, 2023 11:06 AM Reporting Lab: [address] [address] Performing Lab: [facility] [address] [address] WBC 6.12 10*3/uL 4.50-11.00 RBC 4.58 10*6/uL [...] and tobacco- related health factors from the ID facility where the Encounter took place. Current Smoking Status This section includes the most current smoking, or tobacco-related health factor, from the ID facility where the Encounter took place. Date/Time Current Smoking Status Comment Kathy unger Jun 11, 2023 10:30 AM ID-TOBACCO FORMER USER [facility] Tobacco Use History This section includes a history of the smoking, or tobacco-related health factors, that were collected on or before the date of the Encounter. The data comes from the ID facility where the Encounter took place. Date/Time Smoking Status/Tobacco Use Comment F acility Jun 11, 2023 10:30 AM VA-TOBACCO QUIT 15 YRS OR MORE [facility] Feb 18, 2021 01:30 PM VA-TOBACCO NEVER USED [facility] Jan 13, 2020 10:00 AM VA-TOBACCO NEVER USED [facility] May 09, 2017 11:00 AM QUIT TOBACCO USE > 7 YEARS AGO does not smoke [facility] July 18, 2016 10:35 AM LIFETIME NON-TOBACCO USER [facility] May 11, 2015 10:13 AM QUIT TOBACCO USE > 7 YEARS AGO [facility] Jan 27, 2005 09:24 AM HISTORY OF SMOKING 1986 [facility] Feb 23, 2004 02:53 PM HISTORY OF SMOKING stopped tobacco 17 years ago [facility] Feb 23, 2004 02:53 PM QUIT TOBACCO USE > 7 YEARS AGO stopped tobacco 17 years ago [facility] Feb 14, 2001 09:55 AM HISTORY OF SMOKING [facility] Feb 14, 2001 09:55 AM NON-TOBACCO USER quit x 14yrs. [facility] Advance Directives: All historical and current Section Date Range: From patient's date of to the date document was created. This section includes ALL of a patient's completed or amended ID Advance and Rescinded Directives. The entries below indicate that a directive exists for the patient, but an actual copy is not included with this document. The data comes from all ID facilities. Date Advance Directives Provider Source Jun 28, 2009 ADVANCE DIRECTIVE MANUELITO MORELOS Encounter Notes: All associated encounter notes This section contains the clinical notes associated to the Encounter. Date/Time Encounter Note(s) Provider Source Apr 11, 2024 07:45 AM AUDIOLOGY NOTE: LOCAL TITLE: AUDIOLOGY HEALTH CLIENT SERVICE CONSULTANT STANDARD TITLE: AUDIOLOGY NOTE DATE OF NOTE: APR 11, 2024@07:45 ENTRY DATE: APR 11, 2024@07:45:31 AUTHOR: CELE CAPPS COSIGNER: ALEXANDRO KAT URGENCY: STATUS: COMPLETED April 11, 2024 History/Background: was seen for a hearing aid follow up at the [facility], unaccompanied. The presented today to machine operator picker his new skeleton earmolds. The had previously reported weight loss and since then a less secure fit of his earmolds. Hearing aids: [email or web address] EVOLV AI POWER+ BTEs Serial Numbers: [id number] Battery size: 13 Date Issued: 04/17/2022 AND Hearing aids: [employer] HUITRON BTEs Serial Numbers: [id number] Battery size: 13 Date Issued: 06/04/2020 Hearing aid check: Both sets of hearing aids were cleaned and checked. Attached 13 thick tubes and inserted the earmolds to cut to length. Upon initial insertion, the fit was slightly tight and somewhat difficult especially on the left side. However, the earmolds were eventually inserted successfully. The [place] was given the hearing aids to practice insertion and removal in the clinic and he able to insert them more easily. The [place] expressed satisfaction with the secure fit. He will contact the clinic should the earmolds cause any discomfort. The Ha[place] was given his original earmolds back with tubes and tonehooks attached should he wish to go back to wearing those. Plan: If the Ha[place] contacts the clinic due to ear pain from the new earmolds, he should be scheduled in [place] to have them filed down. /devon/ CELE CAPPS Audiology Health Director Independent Signed: 04/11/2024 13:30 /devon/ Caro RANDHAWA, CCC-A Utilities Ground Worker Chief, Audiology Cosigned: 04/11/2024 14:44 CELE CAPPS [facility]
--- OUTSIDE RECORDS SUMMARY | 2024-07-29 15:08 | XMS_ITS ---
Author Organization [facility] Address [address] [place] [address] Care Team Providers Care Production Coordinator Name Role Phone Litzy DUMONT, William Primary Care Provider Hortensia Osborne Unavailable [phone] Allergies Allergen (clinical drug ingredient) Drug/Non Drug [...] Twice a day Active Multivitamin Active Creon 46254-93161 UNIT Orally Active Vancomycin Not-Takin g Citalopram [...] Thre e times a day Not-Taking Zenpep 61496 UNIT as directed Orally Not-Taking oxyCODONE HCl [...] Ordered Date Performed Result Body Sit e 92912-UTBC SKIN LESIONS, 2 TO 4 06/03/2024 N/A X4417-[id number] DYSTROPHIC NAILS ANY # 06/03/2024 N/A Encounters Encounter Location Date Provider Diagnosis [facility] [address] [address] 06/03/2024 Hortensia Sparrow Type 2 diabetes katty itus with diabetic polyneuropathy E11.42 Assessments Encounter Date Diagnosis (ICD Code) Assessment Notes Treatment Notes Treatment Clinical Notes Section Notes 06/03/2024 Type 2 diabetes mellitus with diabetic polyneuropathy (ICD-10 - E11.42) Plan Of Treatment Pending Test Test Name Order Date 36601-OOCK SKIN LESIONS, 2 TO 4 06/04/19 G4374-[id number] DYSTROPHIC NAILS ANY # Next Appt Details Follow Up: prn, Reason: Provider Name:Hortensia Sparrow , 08/05/2024 11:15:00 AM, [address] [place] [address], [phone], Provider Name:Hortensia Sparrow , 10/07/2024 11:15:00 AM, [address] [place] [address], [phone], Procedure Notes * Category Sub-Category Detail Notes [...] instrumentation by the physician of record - 15217 Nail Reduction Nail Reduction (-27) Trimming o [...] Notes * Tay TURPINDOB:1940 (84 yo M)Acc No.[id number]:06/03/2024 Progress Note Patient:?Tay TURPIN Provider:?Hortensia Sparrow DPM :1940???Age:84 Y???Sex:Male Max e:06/03/2024 Address:[address] [place], [place] [phone] Pcp:William Mcghee MD Subjective: * Chief Complaints: [...] yes, walking. ?Marital status: . 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 ???Drug/Alcohol:?AUDIT-C (Standard)?Did you have a drink containing alcohol in the past year??No ?Points?0 ?Interpretation?Negative * Medications:?TakingMetoprolo l Tartrate 25 MG Tablet 1 tablet with food Orally Twice a day Sertraline HCl 100 MG Tablet 1 tablet Orally Creon 88449-77098 UNIT Capsule Delayed Release Particles Orally Multivitamin [...] MG Tablet 1 tablet Orally Taking Creon 83578-97929 UNIT Capsule Delayed Release Particles Orally Taking [...] (M20.41,M20.42), Preulcerative Skin Lesion(s) (L85.1 Probiotic Zenpep 98954 UNIT Capsule Delayed Release Particles as directed [...] Skin Lesion(s) (L85.1 Not-Taking/PRN Probiotic Not-Taking/PRN Zenpep 62890 UNIT Capsule Delayed Release Particles as directed [...] instrumentation by the physician of record - 28638.?Nail Reduction:?Nail Reduction?(-27) Trimming of all dystrophic nails [...] or bed tissue - G0127.? * Procedure Codes:?02362 TRIM SKIN LESIONS, 2 TO 4, Modifiers: XS G0127 TRIMMING DYSTROPHIC NAILS ANY #, Modifiers: XS * Follow Up:?prn * Images: * Sign off status: Completed true * Provider:?Hortensia Sparrow DPM Date:?2024 Generated for Printi ng/Faxing/eTransmitting on:?07/29/2024 03:07 PM EDT History and Physical Notes * HPI [...]
--- OUTSIDE RECORDS SUMMARY | 2024-07-29 15:08 | XMS_ITS ---
MD MEDICAL NUTRITION INDIV IN [facility] Encounter Summary Created on: July 29, 2024 PAPI CAROLYNN : 1940 Sex: Male Author Name Department of Vetera Affairs (MD) Organization [facility] Address [address] [place] [address] Care Team Providers Care Adobe Ball Mixer Name Role Phone BONITA HELMS Primary Care [...] Mueller's Name Patient's Relationship to Policy Mueller [facility] MEDICARE SUPPLEMEN [place] MEDEX ANDRY E Mar 12, 2016 [id number] PRIYANK TURPIN SEPH PATIENT MEDICARE (WNR) MEDICARE (M) PART B May 10, 2004 PART B [id number] ER20 [phone] PRIYANK TURPIN SEPH PATIENT MEDICARE (WNR) MEDICARE (M) PART B May 10, 2004 PART B [id number] [id number] [phone] PRIYANK TURPIN SEPH PATIENT MEDICARE (WNR) MEDICARE (M) PART A July 10, 1997 PART A [id number] PRIYANK TRUPIN PATIENT MEDICARE (WNR) MEDICARE (M) PART A July 10, 1997 PART A [id number] PRIYANK TURPIN PATIENT Selected Encounter This section includes the information on record at MD for the Encounter. Date/Time Encounter Type Encounter Description Reason Provider Source Oct 25, 2023 01:00 PM MEDICAL NUTRITION INDIV IN [facility] - DIETITIAN ICD-10-CM Z71.3 Dietary counseling and surveillance [facility] Encounter Template Text not used by MD Assessments - Encounter Diagnoses This section includes the primary and secondary diagnoses documented for the Encounter. Date/Time Primary/Secondary Diagnosis Diagnosis Name Provider Source Oct 25, 2023 04:49 PM PRIMARY Dietary counseling and surveillance ROSALIND RODNEY [facility] Oct 25, 2023 04:49 PM SECONDARY Type 1 diabetes mellitus without complications ROSALIND RODNEY [facility] [place] [facility] Plan of Treatment: Future Appointments (+ 6 months) and Future Tests (+/- 45 days) The Plan of Treatment section includes future care activities for the patient from all MD treatmentst. anthony hospitalities. This section includes future appointments and [...] REHAB MEDICIN E [facility] [place] [facility] Nov 28, 2023 10:30 AM AMBULATORY - MEDICINE MD C [facility] [place] [facility] Nov 28, 2023 11:30 AM AMBULATORY - MEDICINE MD C [facility] [place] [facility] Nov 28, 2023 11:45 AM AMBULATORY - MEDICINE MD C [facility] [place] [facility] Jan 09, 2024 02:00 PM AMBULATORY - REHAB MEDICIN E [facility] [place] [facility] Feb 29, 2024 11:00 AM AMBULATORY - [facility] Mar 17, 2024 11:00 AM AMBULATORY - [facility]AB MEDIC[facility] E [facility] Apr 11, 2024 01:00 PM AMBULATORY - REHAB [facility] [place] Vital Signs: All taken on the encounter date This section contains inpatient and outpatient Vital Signs collected on the date of the Encounter. Date/Time Temperature Pulse Blood Pressure Respiratory Rate SP02 Pain Height Weight Body Mass Index Source Oct 25, 2023 01:00 PM 155.4 24 [facility] Social History: Smoking Status (Most current) [...] ALL of a patient's completed or amended MD Advance and Rescinded Directives. The entries below [...] DIETETICS CONSULT: LOCAL TITLE: CONSULT REPORT/NUTRITION AND HOME THEATER INSTALLER STANDARD TITLE: NUTRITION DIETETICS CONSULT DATE OF [...] lb. [70.49 kg] (10/25/2023 13:00) Weight History: [place] thinks he has lost some weight recently. 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 Nutrition History: Food/Nutrition Related History: Met with and his in their living room. has history of pancreatectomy and relies on Fangddtronic Mini med insulin pump to provide his [...] D: chicken breast, squash, water snacks: fig fco In the past 3 months, did you ever run out of food and you were not able to access more food or have the money to buy more food? No Physical Activity: limited Current pump settings: basal rate: 6665-2062 = 0.6 units/hr. 5204-4825 = 1.1 units/hr. 9979-3050 = 0.7 units/hr. Carb to insulin ratio [...] OF NUTRITION CARE Follow-up with: HB Team, ELEE MONITORING Patient goals: 1. Estimate carbs content [...] GRANT SCOOTER 10/26/2023 10:38 /es/ JAYJAY SANABRIA, CUSTOMER EXPERIENCE PROFESSIONAL PLUMBING AND HEATING MECHANIC for JOSEPH CONTE 10/26/2023 13:01 /es/ Paola Hudson RN HBPC pin inserter BELA RODNEY [facility]OSPITALCinda JACOBVETERANS AFFA[facility] CITYALEXANDRO [facility]
--- OUTSIDE RECORDS SUMMARY | 2024-07-29 15:08 | XMS_ITS | Encounter Summary ---
Author Name [place] Address [address] [place] [id number] Care Team Providers Care Lap Machine Operator Name Role Phone BONITA HELMS [...] Policy Mueller's Name Patient's Relationship to Policy Muleler [facility] MEDICARE SUPPLEMEN MEGHANA MEDEX ANDRY E Mar 12, 2016 [id number] PRIYANK TURPIN SEPH PATIENT MEDICARE (WNR) MEDICARE (M) PART B May 10, 2004 PART B [id number] [id number] [phone] PRIYANK TURPIN SEPH PATIENT MEDICARE (WNR) MEDICARE (M) PART B May 10, 2004 PART B [id number] [phone] PRIYANK TURPIN SEPH PATIENT MEDICARE (WNR) MEDICARE (M) PART A July 10, 1997 PART A [id number] PRIYANK TURPIN PATIENT MEDICARE (WNR) MEDICARE (M) PART A July 10, 1997 PART A [id number] PRIYANK TURPIN PATIENT Selected Encounter This section includes the information on record at [place] for the Encounter. Date/Time Encounter Type Encounter Description Reason Provider Source Nov 27, 2023 11:00 AM HEARING AID REPAIR/MODIFYIN G AUDIOLOGY ICD-10-CM Z46.1 Encounter for fitting and adjustment of hearing aid DONI JAIN Luiza Encounter Template Text not used by [place] Assessments - Encounter Diagnoses This section includes the primary and secondary diagnoses documented for the Encounter. Date/Time Primary/Secondary Diagnosis Diagnosis Name Provider Source Nov 27, 2023 11:41 AM PRIMARY Encounter for fitting and adjustment of hearing aid BARB JAIN [place] [facility] Nov 27, 2023 11:41 AM SECONDARY Sensorineural hearing loss, bilateral BARB JAIN [place] [facility] [facility] Plan of Treatment: Future Appointments (+ 6 months) and Future Tests (+/- 45 days) The Plan of Treatment section includes future care activities for the patient from all [place] [facility]. This section includes future appointments and future [...] 28, 2023 10:30 AM AMBULATORY - MEDICINE [place] [place] [facility] Nov 28, 2023 11:30 AM AMBULATORY - MEDICINE [place] [place] [facility] Nov 28, 2023 11:45 AM AMBULATORY - MEDICINE [place] [facility] Jan 09, 2024 02:00 PM AMBULATORY - REHAB MEDICIN [place] [place] [facility] Feb 29, 2024 11:00 AM AMBULATORY - REHAB MEDICIN E [place] Mar 17, 2024 11:00 AM AMBULATORY - REHAB MEDICIN E [place] [place] [facility] Apr 11, 2024 01:00 PM AMBULATORY - REHAB MEDICIN E [place] May 06, 2024 10:30 AM AMBULATORY - REHAB MEDICIN E [facility] May 22, 2024 11:30 AM [facility] Social History: Smoking Status (Most current) and Tobacco Use (All prior to encounter date) This section includes the most current, and the historical, smoking and tobacco- related health factors from the [facility] facility where the Encounter took place. Current Smoking Status This section includes the most current smoking, or tobacco-related health factor, from the [place] facility where the Encounter took place. Date/Time Current Smoking Status Comment Kathy unger Mar 24, 2022 10:01 AM VA-TOBACCO NEVER USED [facility] Advance Directives: All historical and current Section Date Range: From patient's date of to the date document was created. This section includes ALL of a patient's completed or amended [place] Advance and Rescinded Directives. The entries below [...] AM AUDIOLOGY E & M NO TE: LOCAL TITLE: AUDIOLOGY CLINIC STANDARD TITLE: AUDIOLOGY E & M NOTE DATE OF NOTE: NOV 27, 2023@11:35 ENTRY DATE: NOV 27, 2023@11:35:05 AUTHOR: DONI JAIN COSIGNER: URGENCY: STATUS: COMPLETED Dx: Sensorineural hearing loss, bilateral was seen today for a hearing aid follow-up appointment. He was accompanied by his given his verbal consent. was issued bilateral Damai.cn Evolv AI Power + BTEs on 04/17/22. He reports the tubing from his right earmold. Viola has been wearing his older pair of Damai.cn BTEs. Both sets of 's Ravin BTEs were cleaned and checked. All debris was removed from the microphones, and the microphone covers, tone hooks, tubes, and batteries were replaced. Listening check post maintenance was positive for all four hearing aids. agreed to have CI consultation scheduled at [facility]. He and his are aware they would still have to travel to [place] if he is considered to be a candidate for a CI. is scheduled for a two hour CI evaluation on 12/27/23 at 2pm. /devon/ Caro Landry, [facility]-A Therapist Occupational Signed: 11/27/2023 11:41 DONI JAIN [facility]
--- OUTSIDE RECORDS SUMMARY | 2024-07-29 15:08 | XMS_ITS ---
Author Name [place] Address [address] [place] [address] Care Team Providers Care Relationship Advisor Name Role Phone BONITA HELMS Primary Care Provider UnavailMOHAMUD Banuelos Unavailable Unavailable MISAEL RAMIREZ Unavailable Unavailable BELA RODNEY Unavailable Unavailable LON HCIU Unavailable Unavailable PATRICIA YOUSSEF Unavailable Unavailable MARY [...] MEGHANA MEDEX ANDRY E Mar 12, 2016 [id number] PRIYANK TURPIN SEPH PATIENT MEDICARE (WNR) MEDICARE (M) PART B May 10, 2004 PART B [id number] PRIYANK TURPIN SEPH PATIENT MEDICARE (WNR) MEDICARE (M) PART B May 10, 2004 PART B [id number] PRIYANK TURPIN SEPH PATIENT MEDICARE (WNR) MEDICARE (M) PART A July 10, 1997 PART A [id number] [id number] PRIYANK TURPIN PATIENT MEDICARE (WNR) MEDICARE (M) PART A July 10, 1997 PART A [id number] [phone] PRIYANK TURPIN PATIENT Selected Encounter This section includes the information on record at [place] for the Encounter. Date/Time Encounter Type Encounter Description Reason Provider Source Jan 09, 2024 02:00 PM JENA CHAPMANCJazlyn 1ST HOUR AUDIOLOGY ICD-10-CM H90.3 Sensorineural hearing loss, bilateral CAMINITI,ELISA E IHE Encounter Template Text not used by [place] Assessments - Encounter Diagnoses This section includes the primary and secondary diagnoses documented for the Encounter. Date/Time Primary/Secondary Diagnosis Diagnosis Name Provider Source Jan 09, 2024 03:45 PM PRIMARY Sensorineural hearing loss, bilateral CAMINITI,ELISA E [place] [facility] Plan of Treatment: Future Appointments (+ 6 months) and Future Tests (+/- 45 days) The Plan of Treatment section includes future care activities for the patient from all [place] treatmentfacilities. This section includes future appointments and future orders which are active, pending or scheduled. Future Appointments This section includes appointments that were scheduled to occur 6 months from the date of the Encounter, up to a maximum of 20 appointments. The data comes from all [place] treatment facilities. Appointment Date/Time Appointment Type Appointme nt Facility Name Feb 29, 2024 11:00 AM AMBULATORY - REHAB MEDICIN [facility] Mar 17, 2024 11:00 AM AMBULATORY - REHAB MEDICIN E [place] [facility] Apr 11, 2024 01:00 PM AMBULATORY - [place]AB MEDICIN [place] May 06, 2024 10:30 AM AMBULATORY - REHAB MEDICIN E [place] [facility] May 22, 2024 11:30 AM AMBULATORY - MEDICINE [place] [facility] Jul 08, 2024 01:00 PM AMBULATORY - PSYCHIATRY [facility] Social History: Smoking Status (Most current) and Tobacco Use (All prior to encounter date) This section includes the most current, and the historical, smoking and tobacco- related health factors from the VA facility where the Encounter took place. Current Smoking Status This section includes the most current smoking, or tobacco-related health factor, from the [place] facility where the Encounter took place. Date/Time Current Smoking Status Comment Facil ity Mar 24, 2022 10:01 AM VA-TOBACCO NEVER USED [place] [facility] [place] [facility] Advance [...] this document. The data comes from all [place] facilities. Date Advance Directives Provider Source Jun [...] evaluated in 2022. He currently uses binaural Cormedicsv Power BTEs, issued in 2022. He reports no otologic changes, denying tinnitus and vertigo. He states that he is generally having difficulty understanding what people are saying. He gives an example of the quaker setting, where he can hear but cannot [...] targets. The reported good subjective benefit. Feedback ed case manager was run. Hearing aids were found to be meeting targets adequately and MPO was not exceeding estimated UCL. Settings stored in ANUPAMA. Aided sound field testing was performed at 60 dB HL for the purpose of evaluating function for CI candidacy. In monaural conditions, a foam earplug was used in the unaided ear (NRR 33 dB). Results are below. Recorded speech results ([place] CNCs): binaural: 32% right ear only: 24% left ear only: 40% AZBIO Sentence Test results: left ear only (list 6): 58/136= 43% right ear only (list 5):56/137= 41% binaural (list 4): 86/146= 59% [place] and his were counseled on today's test results. CI candidacy was included in this discussion. is motivated to continue with the CI assessment process. He was given a booklet with information on the procedure and was counseled on expectations. A consult to the ENT at [facility] will be submitted for CT Scan of temporal bones without contrast. A second consult will be submitted to Audiology in [place]. to follow up with this clinic as needed and/or per recommendation of the ENT and/or [place] [facility]. /devon/ Ronaldo MULLER, [facility]-A STAFF HOUSEHOLD APPLIANCE ASSEMBLER Signed: 01/09/2024 15:53 ELISA HANLEY CNTRL [facility]
--- OUTSIDE RECORDS SUMMARY | 2024-07-29 15:08 | XMS_ITS | Encounter Summary ---
Author Name [place] Address [address] [place] [address] Care Team Providers Care Welt Slasher Name Role Phone BONITA HELMS Primary Care [...] Mueller's Name Patient's Relationship to Policy Mueller [facility] MEDICARE SUPPLEMEN MEGHANA MEDEX ANDRY E Mar 12, 2016 [id number] PRIYANK TURPIN SEPH PATIENT MEDICARE (WNR) MEDICARE (M) PART B May 10, 2004 PART B [id number] ER20 PRIYANK TURPIN SEPH PATIENT MEDICARE (WNR) MEDICARE (M) PART B May 10, 2004 PART B [id number] PRIYANK TURPIN SEPH PATIENT MEDICARE (WNR) MEDICARE (M) PART A July 10, 1997 PART A [id number] PRIYANK TURPIN PATIENT MEDICARE (WNR) MEDICARE (M) PART A July 10, 1997 PART A [id number] PRIYANK TUPRIN PATIENT Selected Encounter This section includes the information on record at [place] for the Encounter. Date/Time Encounter Type Encounter Description Reason Provider Source May 06, 2024 10:30 AM HEARING AID REPAIR/MODIFYING AUDIOLOGY ICD-10-CM Z46.1 Encounter for fitting and adjustment of hearing aid XAVIER CARMEN Luiza Encounter Template Text not used by [place] Assessments - Encounter Diagnoses This section includes the primary and secondary diagnoses documented for the Encounter. Date/Time Primary/Secondary Diagnosis Diagnosis Name Provider Source May 06, 2024 11:33 AM PRIMARY Encounter for fitting and adjustment of hearing aid [facility] May 06, 2024 11:33 AM SECONDARY Sensorineural hearing loss, bilateral [facility]ONJA CAPPS [facility] Plan of Treatment: Future Appointments (+ 6 months) and Future Tests (+/- 45 days) The Plan of Treatment section includes future care activities for the patient from all [place] treatmentfacilities. This section includes future appointments and future orders which are active, pending or scheduled. Future Appointments This section includes appointments that were scheduled to occur 6 months from the date of the Encounter, up to a maximum of 20 appointments. The data comes from all [place] treatment facilities. Appointment Date/Time Appointment Type Appointme nt Facility Name May 22, 2024 11:30 AM AMBULATORY - MEDICINE [facility] [place] [facility] Jul 08, 2024 01:00 PM AMBULATORY - PSYCHIATRY [facility] July 23, 2024 11:00 AM AMBULATORY - MEDICINE [facility] N[place]L [place] [facility] August 08, 2024 11:00 AM AMBULATORY - REHAB MEDICIN E [place] Sep 03, 2024 12:30 PM AMBULATORY - [facility] Active, Pending, and Scheduled Orders This section includes a listing of several types of active, pending, and scheduled orders, including clinic medications orders, diagnostic test orders, procedure orders and consult orders; where the start date of the order is 45 days before the date of the Encounter or 45 days after the date of theEncounter. The data comes from all [place] treatment facilities. Test Date/Time Test Type Test Details Facility Name Jun 03, 2024 10:59 AM Consult Order COMMUNITY CARE-ENDOCRINE Cons Grant Administrator's Choice [facility] Social History: Smoking Status (Most current) and Tobacco Use (All prior to encounter date) This section includes the most current, and the historical, smoking and tobacco- related health factors from the [place] facility where the Encounter took place. Current Smoking Status This section includes the most current smoking, or tobacco-related health factor, from the [place] facility where the Encounter took place. Date/Time Current Smoking Status Comment Facil ity Mar 24, 2022 10:01 AM [place]-TOBACCO NEVER USED [facility] Advance Directives: All historical and current Section Date Range: From patient's date of to the date document was created. This section includes ALL of a patient's completed or amended [place] Advance and Rescinded Directives. The entries below indicate that a directive exists for the patient, but an actual copy is not included with this document. The data comes from all [place] facilities. Date Advance Directives Provider Source Jun 28, 2009 ADVANCE DIRECTIVE MANUELITO MORELOS Encounter Notes: All associated encounter notes This section contains the clinical notes associated to the Encounter. Date/Time Encounter Note(s) Provider Source May 06, 2024 07:35 AM AUDIOLOGY NOTE: LOCAL TITLE: AUDIOLOGY HEALTH AIRLINE SECURITY REPRESENTATIVE STANDARD TITLE: AUDIOLOGY NOTE DATE OF NOTE: MAY 06, 2024@07:35 ENTRY DATE: MAY 06, 2024@07:35:19 AUTHOR: CELE CAPPS EXP COSIGNER: XAVIER CARMEN URGENCY: STATUS: COMPLETED AUDIOLOGY HEALTH AIRLINE SECURITY REPRESENTATIVE Has ADDENDA May 06, 2024 History/Background: [place] was seen for a hearing aid follow up, accompanied by his . The presented today requesting modifications to his new earmolds. The reported the fit is too tight. The brought all 4 of his new earmolds with him today. The also noted that he is getting feedback on the right side when on the couch. Hearing aids: Ravin EVOLV AI POWER+ BTEs Serial Numbers: [id number] Battery size: 13 Date Issued: 04/17/2022 Hearing aid check: Both hearing aids were cleaned and checked. Modified the left and right earmold by grinding down all around the canal and helix lock. The fit appeared better. Replaced tubes and tonehooks. The [place] will try the earmolds with the modifications and contact the clinic with any discomfort. With the supervision of the overseeing Distributor Sales Consultant, both hearing aids were connected to Zingku, the feedback canceller was run. Plan: RTC for routine hearing aid maintenance in 3 months on [facility]. The second set of earmolds were kept in the clinic to have modifications made, as we ran out of time to do all 4 during the appointment. The earmolds will be given to the at his next appointment. This set will be attached to his back up hearing aids. /devon/ CELE CAPPS Audiology Health Human Factors Scientist Signed: 05/06/2024 13:45 /devon/ XAVIER Barkley CCC-A CHIEF, AUDIOLOGY/DEPOSITION REPORTER Cosigned: 05/06/2024 13:55 05/30/2024 ADDENDUM STATUS: COMPLETED Met with [place] today in his home, he reports he does not like his ear molds, they are bumpy and rough . He has an appt with you in July. Just VANNESSA. /devon/ Paola Hudson RN HBJAMAR senior microsoft consultant Signed: 05/30/2024 10:24 CELE CAPPS [place] [place] [facility]
--- OUTSIDE RECORDS SUMMARY | 2024-07-29 15:08 | XMS_ITS | Encounter Summary ---
Author Name [place] Address [address] [place] [address] Care Team Providers Care Fish Conservationist Name Role Phone BONITA HELMS Primary Care Provider UnavailMOHAMUD Banuelos Unavailable Unavailable MISAEL RAMIREZ Unavailable Unavailable BELA RODNEY Unavailable Unavailable LON CHIU Unavailable Unavailable PATRICIA YOUSSEF Unavailable Unavailable MARY HOLLIS Unavailable UnavailPEBBLES Marx Unavailable Unavailable CEEL VELÁZQUEZ Unavailable Unavailable Insurance Providers: All historical [...] MEGHANA MEDEX ANDRY E Mar 12, 2016 [id number] PRIYNAK TURPIN SEPH PATIENT MEDICARE (WNR) MEDICARE (M) PART B May 10, 2004 PART B [id number] [id number] [phone] PRIYANK TURPIN SEPH PATIENT MEDICARE (WNR) MEDICARE (M) PART B May 10, 2004 PART B [id number] PRIYANK TURPIN SEPH PATIENT MEDICARE (WNR) MEDICARE (M) PART A July 10, 1997 PART A [id number] PRIYANK TURPIN PATIENT MEDICARE (WNR) MEDICARE (M) PART A July 10, 1997 PART A [id number] PRIYANK TURPIN PATIENT Selected Encounter This section includes the information on record at [place] for the Encounter. 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 This section includes future appointments and future orders which are active, pending or scheduled. Future Appointments This section includes appointments that were scheduled to occur 6 months from the date of the Encounter, up to a maximum of 20 appointments. The data comes from all [place] treatment facilities. Appointment Date/Time Appointment Type Appointme nt Facility Name Jan 09, 2024 02:00 PM AMBULATORY - [place]ICIN [place] [facility] Feb 29, 2024 11:00 AM AMBULATORY - [place] MEDICIN [place] Mar 17, 2024 11:00 AM AM[place]UL[place] - [place] [facility] Apr 11, 2024 01:00 PM AMBULATORY - RE[place]AB MEDICIN [place] May 06, 2024 10:30 AM AMBULATORY - [place] [facility] May 22, 2024 11:30 AM AM[facility]UL[facility]ORY [facility] Social History: Smoking Status (Most current) and [...] 24, 2022 10:01 AM VA-TOBACCO NEVER USED [place] CNTR [facility] [facility] Advance Directives: All historical and current Section Date Range: From patient's date of to the date document was created. This section includes ALL of a patient's completed or amended [place] Advance and Rescinded Directives. The entries below indicate that a directive exists for the patient, but an actual copy is not included with this document. The data comes from all [place] facilities. Date Advance Directives Provider Source Jun [...] Continue to monitor /devon/ ANUPAMA COONEY OD Gold Miner Signed: 11/28/2023 11:34 ANUPAMA COONEY CNTRL WSTRN [facility]
--- OUTSIDE RECORDS SUMMARY | 2024-07-29 15:08 | XMS_ITS ---
[facility] Organization [facility] Address [address] [place] [address] Care Team Providers Care Faculty Instructor Name Role Phone Litzy DUMONT, William Primary Care Provider Hortensia Osborne Unavailable [phone] Allergies Allergen (clinical drug ingredient) Drug/Non Drug Allergy documented on EMR Reaction Allergy Type Onset Date Status Guaifenesin peeling Drug Allergy Activ e REASON FOR VISIT At Risk Footcare Medications Medication SIG (Take, Route, Frequency, Duration) Notes Start Date End Date Status Vancomycin Not-Takin g Sertraline HCl 100 MG 1 tablet Orally Active Multivitamin Active Creon 50838-27025 UNIT Orally Active Metoprolol Tartrate 25 MG [...] Thre e times a day Not-Taking Zenpep 86260 UNIT as directed Orally Not-Taking oxyCODONE HCl [...] Ordered Date Performed Result Body Sit e 09114-RTGW SKIN LESIONS, 2 TO 4 04/02/2024 N/A C1304-CMWMFADB DYSTROPHIC NAILS ANY # 04/02/2024 N/A Encounters Encounter Location Date Provider Diagnosis [facility] [address] [place] [address] 04/02/2024 Hortensia Sparrow Type 2 diabetes katty itus with diabetic polyneuropathy E11.42 Assessments Encounter Date Diagnosis (ICD Code) Assessment Notes Treatment Notes Treatment Clinical Notes Section Notes 04/02/2024 Type 2 diabetes mellitus with diabetic polyneuropathy (ICD-10 - E11.42) Plan Of Treatment Pending Test Test Name Order Date 45803-DQOX SKIN LESIONS, 2 TO 4 04/02/19 25 P7409-IFEPHRWO DYSTROPHIC NAILS ANY # Next Appt Details Follow Up: prn, Reason: Provider Name:Hortensia Sparrow , 08/05/2024 11:15:00 AM, [address] [place] [address] [place], [phone], Provider Name:Hortensia Sparrow , 10/07/2024 11:15:00 AM, [address] [place] [address], [phone], Procedure Notes * Category Sub-Category Detail Notes [...] instrumentation by the physician of record - 97463 Nail Reduction Nail Reduction (-27) Trimming o [...] Notes * Tay TURPINDOB:1940 (83 yo M)Acc No.[id number]:04/02/2024 Progress Note Patient:?Tay TURPIN Provider:?Hortensia Sparrow DPM :1940???Age:83 Y???Sex:Male Max e:04/02/2024 Address:[address] [place], [place] [phone] Pcp:William Mcghee MD Subjective: * Chief Complaints: [...] yes, walking. ?Marital status: . 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 ???Drug/Alcohol:?AUDIT-C (Standard)?Did you have a drink containing alcohol in the past year??No ?Points?0 ?Interpretation?Negative * Medications:?TakingMetoprolo l Tartrate 25 MG Tablet 1 tablet with food Orally Twice a day Sertraline HCl 100 MG Tablet 1 tablet Orally Creon 07356-06765 UNIT Capsule Delayed Release Particles Orally Multivitamin [...] MG Tablet 1 tablet Orally Taking Creon 23308-23077 UNIT Capsule Delayed Release Particles Orally Taking [...] (M20.41,M20.42), Preulcerative Skin Lesion(s) (L85.1 Probiotic Zenpep 67390 UNIT Capsule Delayed Release Particles as directed [...] Skin Lesion(s) (L85.1 Not-Taking/PRN Probiotic Not-Taking/PRN Zenpep 75512 UNIT Capsule Delayed Release Particles as directed [...] instrumentation by the physician of record - 81001.?Nail Reduction:?Nail Reduction?(-27) Trimming of all dystrophic nails [...] or bed tissue - G0127.? * Procedure Codes:?65223 TRIM SKIN LESIONS, 2 TO 4, Modifiers: [...] Provider:Russ Sparrow DPM Date:?2024 Generated for Printi ng/Faxing/eTransmitting on:?07/29/2024 03:08 PM EDT History and Physical Notes * [...]
--- OUTSIDE RECORDS SUMMARY | 2024-07-29 15:09 | XMS_ITS | Encounter Summary ---
Author Name [facility] [place] [facility] [place] [facility] Address [address] [place] [address] Care Team Providers Care Route Clerk Name Role Phone BONITA HELMS Primary Care [...] Mueller's Name Patient's Relationship to Policy Mueller [facility] MEDICARE SUPPLEMEN MEGHANA MEDEX ANDRY E Mar 12, 2016 [id number] PRIYANK ELIZABETH SEPH PATIENT MEDICARE (WNR) MEDICARE (M) PART B May 10, 2004 PART B [id number] [phone] PRIYANK ELIZABETH SEPH PATIENT MEDICARE (WNR) MEDICARE (M) PART B May 10, 2004 PART B [id number] [phone] PRIYANK ELIZABETH SEPH PATIENT MEDICARE (WNR) MEDICARE (M) PART A July 10, 1997 PART A [id number] [phone] PAPI,JO SEPH PATIENT MEDICARE (WNR) MEDICARE (M) PART A July 10, 1997 PART A [id number] [phone] PRIYANK ELIZABETH SEPH PATIENT Selected Encounter This section includes the information on record at [place] for the Encounter. Date/Time Encounter Type Encounter Description Reason Provider Source Dec 14, 2023 08:23 AM QNHP OL DIG ASSMT&MGMT 21+ [facility] - CLINICAL PHARMACIST ICD-10-CM Z79.899 Other detention (current) drug therapy CELE VELÁZQUEZ [facility] Encounter Template Text not used by [place] Assessments - Encounter Diagnoses This section includes the primary and secondary diagnoses documented for the Encounter. 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 Plan of Treatment: Future Appointments (+ 6 months) and Future Tests (+/- 45 days) The Plan of Treatment section includes future care activities for the patient [facility] [place] [facility] This section includes future appointments [...] 02:00 PM AMBUL[facility] Feb 29, 2024 11:00 AM AMBULATORY - REHAB MEDICIN [facility] Mar 17, 2024 11:00 AM [facility] Apr 11, 2024 01:00 PM AMBULATORY - REHAB MEDICIN [facility] May 06, 2024 10:30 AM [facility] [place] [facility] May 22, 2024 11:30 AM AMBULATORY - MEDICINE [facility] Social History: Smoking Status (Most current) and Tobacco Use (All prior to encounter date) This section includes the most current, and the historical, smoking and tobacco- related health factors from the [place] facility where the Encounter took place. Current Smoking Status This section includes the most current smoking, or tobacco-related health factor, from the [place] facility where the Encounter took place. Date/Time Current Smoking Status Comment Facil ity Mar 24, 2022 10:01 AM VA-TOBACCO NEVER USED [place] [facility] Advance Directives: All historical and current Section [...] DALTON TRINIDAD EXP COSIGNER: URGENCY: STATUS: COMPLETED has not been taking aspirin. is overdue for cardiology visit, had ECHO 2 years ago but never had a visit with build manager. [facility] is the practice that ordered the echo. They cannot give him an appt until they receive a consult. Requesting cardiology consult be entered by PCP if appropriate, requesting PVC, FAX [phone]. /es/ Dalton Trinidad RN [facility] financial services consultant Signed: 12/14/2023 10:43 Receipt Acknowledged By: 12/14/2023 11:06 /es/ BONITA HELMS [facility] NURSE PRACTITIONER --- Original Document --- 12/14/23 [facility] MEDICATION REVIEW: Tay Elizabeth Jr. [...] 1.01 ng/mL (06/07/23) SERUM AST ALT T Jfi Alk Phos 06/07/23 65 H 54 0.4 [...] pelvic CT scan. - Per the 12/11/23 [facility] RN note, has an appt with [facility] Endo on 12/13/23. BG ranges from 74-399. INTERVENTIONS/SUGGESTIONS: 1. Patient's medications were reviewed for significant drug interactions. * hydrocodone/sertraline: concurrent use may increase risk of serotonin syndrome; monitor for signs/sx (neuromuscular abnormalities, tachycardia, diaphoresis, hyperthermia, N/V, diarrhea or AMS) * hydrocodone/zolpidem: concurrent use may increase risk of respiratory and PHYSICAL DESIGN ENGINEER depression; recommend limiting use of zolpidem with [...] prostate cancer - diagnosed 2021, followed by [place] Urology; s/p TURP, under surveillance (cystoscopy every 6 months); PET scan was recently ordered given concern for metastasis of bladder cancer based on findings from pelvic CT scan - was recommended to f/u with Urology * T1DM - hx of total pancreatectomy, on insulin pump (insulin aspart) currently followed by non-[place] Endo with support from [facility] IDT, recently started SMBG using CGM ([employer] Cindi 3) and BG readings seemed to [...] labwork significant for elevated microalbumin/Cr; followed by non-[place] Cardiology * BPH - on tamsulosin * [...] remote history of significantly elevated TG (in 3052-9239) 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 Adherence Concerns: - manages his own medications * Creon - last filled 10/26/23 (33-day supply) 7. 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 - [...] LFTs and for muscle-related symptoms suggestive that adolfo is not tolerating. - Per chart review had an appt scheduled with non-[facility] Endo on 12/13/23. Please request documentation. - Please assess 's willingness to receive the RSV vaccine during next scheduled visit. * This loan underwriter refilled adolfo's Freestyle Cindi 3 Rx as requested by [facility] RN. The details of this review were shared with the IDT in order to assist in creating a care plan designed to provide services focused on the health and well being of the patient. Time Spent: 60 min /devon/ CELE VELÁZQUEZ [facility] Clinical Pharmacist Practitioner Signed: 12/14/2023 10:01 Receipt Acknowledged By: 12/14/2023 10:19 /es/ BONITA HELMS [facility] NURSE PRACTITIONER 12/14/2023 10:48 /es/ Dalton Trinidad RN [facility] financial services consultant 12/14/2023 ADDENDUM STATUS: COMPLETED Dalton- can you confirm if he does take aspirin? I wrote it in my admit but never added it to his med list so I want to be sure. thanks. /es/ BONITA HELMS [facility] NURSE PRACTITIONER Signed: 12/14/2023 10:21 Receipt Acknowledged By: 12/14/2023 10:30 /es/ Dalton Trinidad RN [facility] financial services consultant DALTON TRINIDAD [place] [facility] Dec 14, 2023 10:20 AM ADDENDUM: [...] to be sure. thanks. /devon/ BONITA HELMS [facility] NURSE PRACTITIONER Signed: 12/14/2023 10:21 Receipt Acknowledged By: 12/14/2023 10:30 /es/ Dalton Trinidad RN [facility] financial services consultant --- Original Document --- 12/14/23 [facility] MEDICATION REVIEW: Tay Elizabeth Jr. 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 - Troy has a history of CAD, but is [...] vaccine during next scheduled visit. * This loan underwriter refilled 's Freestyle Cindi 3 Rx as requested by [facility] RN. The details of this review were shared with the IDT in order to assist in creating a care plan designed to provide services focused on the health and well being of the patient. Time Spent: 60 min /devon/ CELE VELÁZQUEZ [facility] Clinical Pharmacist Practitioner Signed: 12/14/2023 10:01 Receipt Acknowledged By: 12/14/2023 10:19 /devon/ BONITA HELMS [facility] NURSE PRACTITIONER * AWAITING SIGNATURE * DALTON TRINIDAD JESSICA FRANCES [place] [facility] Dec 14, 2023 08:23 AM [facility] MEDICATION [...] - Per the 10/26/23 [facility] RN note, will think about whether he would like [...] over the past 2 weeks was 179. Troy has an upcoming PET scan scheduled due [...] use may increase risk of respiratory and PHYSICAL DESIGN ENGINEER depression; recommend limiting use of zolpidem with [...] prostate cancer - diagnosed 2021, followed by [place] U[facility]; s/p TURP, under surveillance (cystoscopy every 6 months); PET scan was recently ordered given concern for metastasis of bladder cancer based on findings from pelvic CT scan - was recommended to f/u with Urology * T1DM - hx of total pancreatectomy, on insulin pump (insulin aspart) currently followed by non[place] Endo with support from [facility] IDT, recently started SMBG using CGM ([employer] Cindi 3) and BG readings seemed to [...] labwork significant for elevated microalbumin/Cr; followed by [place] Card[place] * BPH - on tamsulosin * [...] remote history of significantly elevated TG (in 8704-0450) 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 Adherence Concerns: - manages his own medications * Creon - last filled 10/26/23 (33-day supply) 7. 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 - [...] vaccine during next scheduled visit. * This loan underwriter refilled 's Freestyle Cindi 3 Rx as requested by [facility] RN. The details of this review were shared with the IDT in order to assist in creating a care plan designed to provide services focused on the health and well being of the patient. Time Spent: 60 min /devon/ CELE VELÁZQUEZ [facility] Clinical Pharmacist Practitioner Signed: 12/14/2023 10:01 Receipt Acknowledged By: 12/14/2023 10:19 /es/ BONITA HELMS [facility] NURSE PRACTITIONER 12/14/2023 10:48 /es/ Dalton Trinidad RN [facility] financial services consultant 12/14/2023 ADDENDUM STATUS: COMPLETED Dalton- can you confirm if he does take aspirin? I wrote it in my admit but never added it to his med list so I want to be sure. thanks. /devon/ BONITA HELMS [facility] NURSE PRACTITIONER Signed: 12/14/2023 10:21 Receipt Acknowledged By: 12/14/2023 10:30 /devon/ Dalton Trinidad RN [facility] financial services consultant 12/14/2023 ADDENDUM STATUS: COMPLETED Troy has not been taking aspirin. is overdue for cardiology visit, had ECHO 2 years ago but never had a visit with build manager. [facility] is the practice that ordered the echo. They cannot give him an appt until they receive a consult. Requesting cardiology consult be entered by PCP if appropriate, requesting PVC, FAX [phone]. /devon/ Dalton Trinidad RN [facility] financial services consultant Signed: 12/14/2023 10:43 Receipt Acknowledged By: * AWAITING SIGNATURE * BONITA HELMS SARAH J [place] [facility]
--- OUTSIDE RECORDS SUMMARY | 2024-07-29 15:09 | XMS_ITS | Continuity of Care Document ---
Author Name [facility] Organization [facility] Care Team Providers Care Supervisor [employer] Former Name Role Phone [facility] Unavailable Unavailable Problems Combined list of problems from Department of Defense and Veterans Affairs facilities. It does not include entries that were removed or entered in error. 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 Active Condition [place] Age Macular Degeneration, Dry (Armd) Active Condition [facility] autophony Active Condition Aug 14 Entered By: YENI PUENTES Comment: Inner Ear Pathology AU; see ENT note dated JAN 23 [place] Bladder cancer Active Condition Sep 092021 Entered [...] By: YENI PUENTES Comment: Also, some BPH [place] Cataract, Cortical (Senile) [facility] Cervical radiculopathy Active Condition Sep 16, 2020 Entered By: YENI PUENTES Comment: Has Seen Both Chiropractor and [facility]; [facility]CS Inj.;s via [facility] 2020 [place] Chronic pain Active Condition [place] [facility] Coronary artery disease Active Condition Sep 16, 2020 Entered By: YENI PUENTES Comment: CABG Years AgoJul 2021 Entered By: YENI PUENTES Comment: Still Sees Private Cardio as of SEPTEMBER 30; New ECHO Done AUGUST 31 [place] Depressive Disorder NOS [facility] Diabetes mellitus (SNOMED CT 68894190) Active Condition Sep 14, 2005 Entered By: YENI PUENTES Comment: no DR per retinal exam on AUGUST 15Apr 2010 Entered By: YENI PUENTES Comment: secondary Proteinuria ; Stable Renal Function as of APR 22Ju2011 Entered By: YENI PUENTES Comment: on Percutaneous Insulin Pump as of SEPTEMBER 20 [facility] Disorders of bursae and tendons in shoulder region Active Condition Apr 07 009 Entered By: YENI PUENTES Comment: Surg Repair, RC Tear, R Shldr, DEC 18 (a Chronicity) [place] ENDOSCOPY Active Condition Jan 29 Entered By: YENI PUENTES Comment: Endoscopy JAN 16 privately (pt. not sure why)Oct 23, 2007 Entered By: YENI PUENTES Comment: Reflux - Prilosec helps a lot [place] Foot drop Active Condition May 04 07 Entered By: YENI PUENTES Comment: Foot Drop, R side; Hx L5-S1 Lesion (wears brace on foot)Oct 08, 2009 Entered By: YENI PUENTES Comment: Surg Oct Entered By: YENI PUENTES Comment: new Arthritis both Feet as of MAR 25; sees private Podiatry [place] Full thickness rotator cuff tear Active Condition Sep 16 Entered By: YENI PUENTES Comment: RC Tear, R Side 2011; He Elects NOT to Do SurgApr 2023 Entered By: YENI PUENTES Comment: Severe OA and Prob. RC Tear, L Shldr MAR 03: Declines Surg; Fall in ShowerApr 2023 Entered By: YENI PUENTES Comment: Seen by [facility] MAR 03; Surg Offered; He Declines [place] Gastroesophageal Reflux Disorder Active Condition Jun 21, 2004 Entered By: MAYTE ERVIN Comment: no hx of ulcer, gi bleed or scope. [place] Generalized anxiety disorder Active Condition [facility] Hearing impaired Active Condition [place] Hematuria Active Condition May 04 07 Entered By: YENI PUENTES Comment: +Hematuria is baseline ; Still Sees private URO as of 2006 Entered By: YENI PUENTES Comment: Hematuria and Obstructive Uropathy (never Dx w/ any CA)Feb 18, 2021 Entered By: YENI PUENTES Comment: Last Saw URO JAN 30: Cysto DoneDec 2020 Entered By: YENI PUENTES Comment: New Bladder Lesion Noted; Suspicious for Malignancy;Feb 18, 2021 Entered By: YENI PUENTES Comment: pending Excision approx APR 02 [place] History of total pancreatectomy Active Condition [place] [facility] HYPERLIPIDEMIA NEC/NOS Active Condition [facility] Hypertension (SNOMED CT 95935649) Active Condition Nov 15, 2006 Entered By: YENI PUENTES Comment: +Renal Cysts Bilat (US OCT 16); refer URO to R/O RCCOct 2006 Entered By: YENI PUENTES Comment: Post-Op Dx of Left Renal Mass was Neg [place] [facility] Entered By: YENI PUENTES Comment: Proteinuria; saw private Nephro APR 22, Dr Souza [phone] [place] Localized, primary osteoarthritis Active Condition Apr 11, [...] YENI PUENTES Comment: pending More Revisional Hardware APR ep 2017 Entered By: YENI PUENTES Comment: Fell Twice 2018; Returning to Ortho; [place], Femur Intact ???Nov 27, 2017 Entered By: YENI PUENTES Comment: On Chemo-Prophylaxis for Sepsis LegJun 2019 Entered By: YENI PUENTES Comment: Last Saw Ortho AUGUST 29: No Complications Noted s/p L Knee Fusion [place] Pancreatitis (SNOMED CT [id number]) Active Condition May 01, 2007 Entered By: YENI PUENTES Comment: ERCP MAR 19 @ [facility], MAR 19 Neg Pancreatic CAFeb 2007 Entered By: YENI PUENTES Comment: does have some scarring Pancreas; not a drinkerApr 2009 Entered By: YENI PUENTES Comment: 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 andApr 2009 Entered By: YENI PUENTES Comment: Puncture Gastrum dus to Stent placed for Pancreas May Entered By: YENI PUENTES Comment: follows [facility] MAY 19 - another Endoscopy due APR 2009 Entered By: YENI PUENTES Comment: now TYPE I Diabetic in 2009 Entered By: YENI PUENTES Comment: Necrotizing Pancreatitis & Insufficiency DEC 19;Jan 05, 2010 Entered By: YENI PUENTES Comment: private Dr Varela [phone] 29, 2013 Entered By: YENI PUENTES Comment: pending Cholecystectomy MAY 23 at [facility];May 29, 2013 Entered [...] Air Biliary Tree? 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 Jun 05 08 Entered By: ALISON VILCHIS OD Comment: area of hyperpigmentation superior periphery right eye [facility] Screening for Malignant Neoplasms of colon Active Condition Sep 15 006 Entered By: YENI PUENTES Comment: [facility] Entered By: YENI PUENTES Comment: NEG CRC - repeat 2009; paper report in paper Health recordsMay 25, 2014 Entered By: YENI PUENTES Comment: pending one more colonoscopy in 2014 [place] SENSORNEUR HEAR LOSS NOS Active Condition May 04, 2006 Entered By: YENI PUENTES Comment: subjective tinnitus [facility] Trigger finger Active Condition [facility] Trochanteric Bursitis Active Condition Dec 29, 2005 Entered By: YENI PUENTES Comment: gets Iontophoresis privately [place] Diagnosis: ICD-10-CM G89.4 Chronic pain syndrome Active Diagnosis [facility] Diagnosis: ICD-10-CM F41.9 Anxiety disorder, unspecified Active Diagnosis [place] Diagnosis: ICD-10-CM G89.29 Other chronic pain Active Diagnosis [facility] Diagnosis: ICD-10-CM Z79.899 Other chcf (current) drug therapy Active Diagnosis [facility] [...] Diagnosis: ICD-10-CM I25.10 Athscl heart disease of [place] coronary artery w/o ang pctrs Active Diagnosis [...] ICD-10-CM Z71.89 Other specified counseling Active Diagnosis [facility] Diagnosis: ICD-10-CM Z65.9 Problem related to unspecified psychosocial circumstances Active Diagnosis [facility] Diagnosis: ICD-10-CM R00.1 Bradycardia, unspecified Active Diagnosis [facility] Diagnosis: ICD-10-CM Z13.6 Encounter for screening for cardiovascular disorders Active Diagnosis [place] [facility] Diagnosis: ICD-10-CM R68.89 Other general symptoms and signs Active Diagnosis [facility] Diagnosis: ICD-10-CM K86.1 Other chronic pancreatitis Active Diagnosis [place] Medications Combined list of outpatient medications from Department of Defense and [facility] facilities.Medications provided include 1) outpatient medications from the last 15 months, and 2) patient-reported medications. Medication Details Route Status Patient Instructions Prescription Expires Prescription Number Last Dispense Date Ordering Provider Order Date Order Qty Source AMLODIPINE BESYLATE 10MG TAB TAKE ONE TABLET BY MOUTH ONCE DAILY FOR BLOOD PRESSURE /HEART, DO NOT TAKE WITH GRAPEFRU IT JUICE REPLACE [place] ORAL ACTIVE 05/31/2025 [id number] [address]MS [address] [facility] AMLODIPINE BESYLATE 10MG TAB TAKE ONE TABLET BY MOUTH ONCE DAILY FOR BLOOD PRESSURE /HEART, DO NOT TAKE WITH GRAPEFRU IT JUICE REPLACE [place] ORAL DISCONT INUED 06/11/2024 [id number] 5 PRIYANK PUENTES 2023 90 [facility] IELD AMYLASE 120,000UNIT /LIPASE 24,000UNIT/ PROTEASE 76,000UNIT CAP,EC TAKE 3 CAPSULES BY MOUTH THREE TIMES A DAY ORAL ACTIVE 04/09/2025 [id number] 5 SILVANO HELMS [address] [facility] AMYLASE 120,000UNIT /LIPASE 24,000UNIT/ PROTEASE 76,000UNIT CAP,EC TAKE 3 CAPSULES BY MOUTH THREE TIMES A DAY ORAL DISCONT INUED 01/02/2025 [id number] 4 SCOOTER,JES EMIGDIO RUDY 2023 300 [facility] AMYLASE 120,000UNIT /LIPASE 24,000UNIT/ PROTEASE 76,000UNIT CAP,EC TAKE 3 CAPSULES BY MOUTH THREE TIMES A DAY ORAL DISCONT INUED 08/14/2024 [id number] 4 PRIYANK PUENTES 2023 300 [place] AMYLASE 120,000UNIT /LIPASE 24,000UNIT/ PROTEASE 76,000UNIT CAP,EC TAKE 3 CAPSULES BY MOUTH THREE TIMES A DAY ORAL DISCONT INUED 05/22/2024 [id number] 4 PRIYANK PUENTES 2023 250 [place] AMYLASE 120,000UNIT /LIPASE 24,000UNIT/ PROTEASE 76,000UNIT CAP,EC TAKE 3 CAPSULES BY MOUTH THREE TIMES A DAY ORAL DISCONT INUED 02/20/2024 [id number] 4 PRIYANK PUENTES 2022 250 [place] ATORVASTATI N CA 20MG TAB TAKE ONE TABLET BY MOUTH AT BEDTIME FOR CHOLESTE ROL ORAL ACTIVE 05/31/2025 [id number] 5 SILVANO HELMS 2024 90 [facility] ATORVASTATI N CA 20MG TAB TAKE ONE TABLET BY MOUTH AT BEDTIME FOR CHOLESTE ROL ORAL DISCONT INUED 06/11/2024 [id number] 5 PRIYANK PUENTES 2023 90 [place] BUPRENORPHI NE 10MCG/HR PATCH APPLY 1 PATCH TO SKIN EVERY 7 DAYS FOR PAIN (REMOVE PATCH BEFORE APPLYING A NEW PATCH) TRANSD ERMAL DISCONT INUED BY VIOLETA Nash 01/02/2025 [id number] 5 KYLIE JOHNSON [address] [facility] BUPRENORPHI NE 5MCG/HR PATCH APPLY 1 PATCH TO SKIN EVERY 7 DAYS (REMOVE PATCH BEFORE APPLYING A NEW PATCH) TRANSD ERMAL DISCONT INUED (EDIT) 12/24/2024 [id number] 5 BOY JOHNSON JUANITA 2024 4 [facility] BUPRENORPHI NE 5MCG/HR PATCH APPLY 1 PATCH TO SKIN EVERY 7 DAYS FOR PAIN (REMOVE PATCH BEFORE APPLYING A NEW PATCH) TRANSD ERMAL DISCONT INUED 07/09/2024 [id number] 5 BOY JOHNSON JUANITA 2024 4 [facility] BUPRENORPHI NE 7.5MCG/HR PATCH APPLY 1 PATCH TO SKIN EVERY 7 DAYS FOR PAIN (REMOVE PATCH BEFORE APPLYING A NEW PATCH) STOP 10MCG/HR PATCH TRANSD ERMAL ACTIVE 01/16/2025 [id number] 5 BOY JOHNSON JUANITA 2024 2 [place] CALCIUM 500MG/VITAM IN D 200UNT TAB TAKE 1 TABLET BY MOUTH TWICE DAILY FOR CALCIUM SUPPLEME NT ORAL ACTIVE 10/23/2024 [id number] 5 [facility] 180 [facility] CARBOXYMETH YLCELLULOSE NA 0.5% SOLN,OPH INSTILL 1 DROP INTO EACH EYE FOUR TIMES DAILY NEEDED FOR DRY EYE OPHTHA LMIC 06/21/2024 [id number] 5 MERHAR,NO AH B 2023 15 [facility] GLUCOSE 4GM TAB,CHEW CHEW FOUR TABLETS BY MOUTH NEEDED FOR LOW BLOOD SUGAR ORAL ACTIVE 05/31/2025 [id number] 5 SILVANO HELMS [address] [facility] GLUCOSE 4GM TAB,CHEW CHEW FOUR TABLETS BY MOUTH NEEDED FOR LOW BLOOD SUGAR ORAL DISCONT INUED 10/08/2024 [id number] 5 SILVANO HELMS 2023 60 [facility] HYDROCODONE 5MG/ACETAMI NOPHEN 325MG TAB TAKE 1 TABLET BY MOUTH THREE TIMES DAILY NEEDED NEXT FILL 08/15 ORAL ACTIVE 08/06/2024 [id number] 5 BOY JOHNSONTH [place] 2024 84 [facility] HYDROCODONE 5MG/ACETAMI NOPHEN 325MG TAB TAKE 1 TABLET BY MOUTH THREE TIMES DAILY NEEDED FOR PAIN ORAL DISCONT INUED 07/09/2024 [id number] 5 SILVANO HELMS 2024 84 [facility] HYDROCODONE 5MG/ACETAMI NOPHEN 325MG TAB TAKE 1 TABLET BY MOUTH THREE TIMES DAILY NEEDED FOR PAIN ORAL DISCONT INUED 06/11/2024 [id number] 5 [place] [address] [facility] HYDROCODONE 5MG/ACETAMI NOPHEN 325MG TAB TAKE 1 TABLET BY MOUTH THREE TIMES DAILY NEEDED FOR PAIN NEXT FILL 10/22/23* * ORAL DISCONT INUED BY PROVIDE R 10/24/2023 [id number] 4 PRIYANK PUENTES 2023 84 [facility] IELD HYDROCODONE 5MG/ACETAMI NOPHEN 325MG TAB TAKE 1 TABLET BY MOUTH THREE TIMES DAILY NEEDED NEXT FILL 11/27 ORAL DISCONT INUED BY PROVIDE R 11/30/2023 [id number] SILVANO HELMS [address] [facility] HYDROCODONE 5MG/ACETAMI NOPHEN 325MG TAB TAKE 1 TABLET BY MOUTH THREE TIMES DAILY NEEDED NEXT FILL 04/23 ORAL DISCONT INUED BY PROVIDE R 04/23/2024 [id number] 5 SILVANO HELMS 2024 84 [facility] HYDROCODONE 5MG/ACETAMI NOPHEN 325MG TAB TAKE 1 TABLET BY MOUTH THREE TIMES DAILY NEEDED NEXT FILL 02/27/24 ORAL DISCONT INUED BY PROVIDE R 02/21/2024 [id number] SILVANO HELMS RUDY [address] [facility] HYDROCODONE 5MG/ACETAMI NOPHEN 325MG TAB TAKE 1 TABLET BY MOUTH THREE TIMES DAILY NEEDED FOR PAIN NEXT FILL DATE 05/23/24 ORAL DISCONT INUED 05/25/2024 [id number] 5 [facility] [address] [facility] HYDROCODONE 5MG/ACETAMI NOPHEN 325MG TAB TAKE 1 TABLET BY MOUTH THREE TIMES DAILY NEEDED FOR PAIN ORAL DISCONT INUED 03/27/2024 [id number] 4 SCOOTER,JES EMIGDIO GRANT [address] [facility] HYDROCODONE 5MG/ACETAMI NOPHEN 325MG TAB TAKE 1 TABLET BY MOUTH THREE TIMES DAILY NEEDED FOR PAIN NEXT FILL 01/30/24 ORAL DISCONT INUED 01/25/2024 [id number] 4 SCOOTER,JES EMIGDIO RUDY [address] [facility] HYDROCODONE 5MG/ACETAMI NOPHEN 325MG TAB TAKE 1 TABLET BY MOUTH THREE TIMES DAILY NEEDED FOR PAIN ORAL DISCONT INUED 01/03/2024 [id number] 4 SCOOTERSILVANO EMIGDIO GRANT [address] [facility] HYDROCODONE 5MG/ACETAMI NOPHEN 325MG TAB TAKE 1 TABLET BY MOUTH THREE TIMES DAILY NEEDED FOR PAIN NEXT FILL 06/21/23* * ORAL DISCONT INUED BY PROVIDE R 06/21/2023 [id number] 4 PRIYANK PUENTES 2023 84 [facility] IELD HYDROCODONE 5MG/ACETAMI NOPHEN 325MG TAB TAKE 1 TABLET BY MOUTH THREE TIMES DAILY NEEDED FOR PAIN NEXT FILL 09/24/23* * ORAL DISCONT INUED BY PROVIDE R 09/21/2023 [id number] 4 PRIYANK PUENTES 2023 84 IELD HYDROCODONE 5MG/ACETAMI NOPHEN 325MG TAB TAKE 1 TABLET BY MOUTH THREE TIMES DAILY NEEDED FOR PAIN NEXT FILL 08/27/23* * ORAL DISCONT INUED 08/29/2023 [id number] 4 PRIYANK PUENTES 2023 84 IELD INSULIN,ASP ART,HUMAN 100 UNT/ML INJ INJECT INSULIN SUBCUTAN EOUSLY THREE TIMES DAILY NEEDED ACCORDIN G TO SLIDING SCALE SUBCUT ANEOUS ACTIVE 01/02/2025 [id number] 5 SILVANO HELMS [address] [facility] INSULIN,ASP ART,HUMAN 100 UNT/ML INJ INJECT INSULIN SUBCUTAN EOUSLY THREE TIMES DAILY NEEDED ACCORDIN G TO SLIDING SCALE SUBCUT ANEOUS DISCONT INUED 03/19/2024 [id number] 4 PRIYANK PUENTES 2023 3 IELD METOPROLOL TARTRATE 25MG TAB TAKE ONE-HALF TABLET BY MOUTH TWICE DAILY FOR BLOOD PRESSURE /HEART ORAL ACTIVE 10/22/2024 [id number] 5 SILVANO HELMS [address] [facility] METOPROLOL TARTRATE 25MG TAB TAKE ONE-FOUR TH TABLET BY MOUTH TWICE DAILY FOR BLOOD PRESSURE /HEART ORAL DISCONT INUED (EDIT) 01/14/2024 [id number] 4 SILVANO HELMS [address] [facility] METOPROLOL TARTRATE 25MG TAB TAKE ONE TABLET BY MOUTH TWICE DAILY FOR BLOOD PRESSURE /HEART ORAL DISCONT INUED BY PROVIDE R 06/11/2024 [id number] 4 PRIYANK PUENTES 2023 180 [place] MULTIVIT/OP HTH AREDS2/LUTE IN/ZEAXANTH IN CAP/TAB TAKE 1 CAPSULE BY MOUTH TWICE DAILY IN THE MORNING AND EVENING, WITH FOOD ORAL ACTIVE 04/09/2025 [id number] 5 SILVANO HELMS 2024 120 [facility] MULTIVIT/OP HTH AREDS2/LUTE IN/ZEAXANTH IN CAP/TAB TAKE 1 CAPSULE BY MOUTH TWICE DAILY IN THE MORNING AND EVENING, WITH FOOD ORAL DISCONT INUED 05/22/2024 [id number] 4 PRIYANK PUENTES 2023 120 [place] NALOXONE HCL 4MG/SPRAY SOLN,SPRAY, NASAL INSTILL 1 SPRAY ONE NOSTRIL ONE TIME NEEDED FOR OPIOID OVERDOSE CALL 911 WITH ADMINIST RATION. REPEAT WITH SECOND DEVICE IF SYMPTOMS RETURN NASAL 01/06/2024 [id number] 4 SILVANO HELMS 2023 2 [facility] NALOXONE HCL 4MG/SPRAY SOLN,SPRAY, NASAL INSTILL 1 SPRAY ONE NOSTRIL ONE TIME PRN NASAL ACTIVE TONJA VELÁZQUEZ 2023 [facility] OTHER CAP/TAB FISH OIL, 1000MG po EVERY DAY ACTIVE PRIYANK PUENTES 2007 [place] SERTRALINE HCL 100MG TAB TAKE ONE TABLET BY MOUTH TWICE DAILY ORAL ACTIVE 07/18/2025 [id number] 5 SILVANO HELMS 2024 180 [facility] SERTRALINE HCL 100MG TAB TAKE ONE TABLET BY MOUTH TWICE DAILY ORAL DISCONT INUED 06/11/2024 [id number] 5 PRIYANK PUENTES 2023 180 [place] SERTRALINE HCL 100MG TAB TAKE ONE TABLET BY MOUTH TWICE DAILY ORAL DISCONT INUED 11/07/2023 [id number] 4 PRIYANK PUENTES 2022 180 [place] TAMSULOSIN HCL 0.4MG CAP TAKE ONE CAPSULE BY MOUTH ONCE DAILY FOR ENLARGED PROSTATE ORAL ACTIVE 10/08/2024 [id number] 5 SILVANO HELMS 2023 90 [facility] ZOLPIDEM TARTRATE 10MG TAB TAKE ONE TABLET BY MOUTH BEDTIME NEEDED FOR SLEEP ORAL DISCONT INUED (EDIT) 10/24/2023 [id number] 4 PRIYANK PUENTES 2023 30 [place] ZOLPIDEM TARTRATE 10MG TAB TAKE ONE TABLET BY MOUTH BEDTIME NEEDED FOR SLEEP ORAL DISCONT INUED 09/21/2023 [id number] 4 PRIYANK PUENTES 2023 30 [place] ZOLPIDEM TARTRATE 10MG TAB TAKE ONE TABLET BY MOUTH BEDTIME NEEDED FOR SLEEP ORAL DISCONT INUED 08/29/2023 [id number] 4 PRIYANK PUENTES 2023 30 [place] ZOLPIDEM TARTRATE 10MG TAB TAKE ONE TABLET BY MOUTH BEDTIME NEEDED FOR SLEEP ORAL DISCONT INUED 06/21/2023 [id number] PRIYANK PUENTES 2023 30 [place] ZOLPIDEM TARTRATE 10MG TAB TAKE ONE TABLET BY MOUTH BEDTIME NEEDED FOR SLEEP ORAL DISCONT INUED 05/31/2023 [id number] 4 PRIYANK PUENTES 2023 30 [place] ZOLPIDEM TARTRATE 5MG TAB TAKE ONE TABLET BY MOUTH AT BEDTIME NEEDED FOR SLEEP ORAL ACTIVE 08/01/2024 [id number] 5 SILVANO HELMS 2023 30 [facility] ZOLPIDEM TARTRATE 5MG TAB TAKE ONE TABLET BY MOUTH AT BEDTIME NEEDED FOR SLEEP ORAL DISCONT INUED BY VIOLETA Nash 11/22/2023 [id number] 4 KYLIE JOHNSON 2023 30 [facility] ZOLPIDEM TARTRATE 5MG TAB TAKE ONE TABLET BY MOUTH AT BEDTIME NEEDED FOR SLEEP ORAL DISCONT INUED 02/21/2024 [id number] 4 SILVANO HELMS 2023 30 [facility] ZOLPIDEM TARTRATE 5MG TAB TAKE ONE TABLET BY MOUTH AT BEDTIME NEEDED FOR SLEEP ORAL DISCONT INUED 01/25/2024 [id number] 4 SILVANO HELMS 2023 30 [facility] Allergies, Adverse Reactions, Alerts Combined list of allergies from Department of [facility] and Veterans Affairs facilities. It does not include entries that were removed or entered in error. Substance Category Reaction Severity Reaction type Status Date Reported Comments Source CONTRAST MEDIA Propensity to adverse reactions to drug (finding) active 4 [facility] CONTRAST MEDIA, OTHER Propensity to adverse reactions to drug (finding) active 4 [facility] GUAFENESIN DEXTROMETHOR MOREJON SYRUP Propensity to adverse reactions to drug (finding) Urticaria active 0 [facility] RADIOLOGICAL /CONTRAST MEDIA Propensity to adverse reactions to drug (finding) active 5 [facility] Immunizations Combined list of available immunizations from the Department of [facility] and Veterans Affairs facilities. Immunization Series Date Given Administered By Site Reaction Lot Number CVX Code Drug Drum Filler Status Comments Source RSV, BIVALENT, PROTEIN SUBUNIT RSVPREF, DILUENT RECONSTITUTED , 0.5 ML, PF 2023 [facility]ID [place] RIGHT DELTO ID [id number] 305 complet ed [facility] COVID-19 (MODERNA), MRNA, LNP-S, PF, 50 MCG/0.5 ML (AGES 12+ YEARS) 2023 DAVID [place] LEFT DELTO ID [id number] 312 complet ed [facility] INFLUENZA, HIGH-DOSE, TRIVALENT, PF 2023 DAVID [place] RIGHT DELTO ID [id number] 135 complet ed [facility] INFLUENZA, UNSPECIFIED FORMULATION 2022 88 complet ed HISTORICA L INFORMATI ON - FROM PATIENT'S RECALL, [facility] TDAP 2022 [facility] LEFT DELTO ID [id number] 115 complet ed [facility], [facility] COVID-19, [...] FLU,3 YRS (HISTORICAL) 2009 88 complet ed [facility] NOVEL INFLUENZA-H1N 1-09, ALL FORMULATIONS 2009 128 complet ed [facility] (523) PNEUMOCOCCAL, UNSPECIFIED FORMULATION 2009 109 complet ed [facility] FLU,3 YRS (HISTORICAL) 2008 88 complet ed [facility] (523) FLU,3 YRS (HISTORICAL) [address] Harley Souza [facility] FLU,3 YRS (HISTORICAL) 2006 88 complet ed Site: Left Deltoid [facility] TD(ADULT) UNSPECIFIED FORMULATION 2004 MARLA BAKER 139 comple t ed [facility] IELD Results Combined list of recent chemistry, hematology and other laboratory results from Department of Defense and Veterans Affairs, ranging from 15 months to all on record, depending upon the facility. Order Name Results Value Reference Range Date Interpretation Specimen Comments Source VITAMIN B12 COBALAMIN (VITAMIN B12) [MASS/VOLU ME] IN SERUM OR PLASMA 512 pg/mL 200 - 900 03/17 Specimen Type: SERUM No comment entered. Ordering Provider: YENI PUENTES Report Released Date/Time: Jun 11, 2023 11:06 AM Reporting [facility] [address] [address] Performing Lab: [facility] [address] [address] [facility] LD FERRITIN FERRITIN [MASS/VOLU ME] IN SERUM OR PLASMA 57 ng/mL 20 - 300 03/17 Specimen Type: SERUM No comment entered. Ordering Provider: YENI PUENTES Report Released Date/Time: Jun 11, 2023 11:06 AM Reporting Lab: [facility] [place] [address] [address] Per[facility]: [facility] [address] [address] [place] HEMOGLOBI N A1C PANEL HEMOGLOBIN A1C/HEMOGL OBIN.TOTAL IN BLOOD BY HPLC 7.4 4.0 - [...] Jun 11, 2023 11:06 AM Reporting [facility] [address] [address] Performing Lab: [facility] [address] [place] TSH THYROTROPI N [UNITS/VOL UME] IN SERUM OR PLASMA 3.25 u[IU]/m L 0.35 - 5.00 03/17 Specimen Type: SERUM No comment entered. Ordering Provider: YENI PUENTES Report Released Date/Time: Jun 11, 2023 11:06 AM Reporting Lab[facility] [address] [address] Performing Lab: [facility] [address] [place] CALCIUM CALCIUM [MASS/VOLU ME] IN SERUM OR PLASMA 9.3 mg/dL 8.5 - 10.2 03/17 Specimen Type: SERUM No comment entered. Ordering Provider: YENI PUENTES Report Released Date/Time: Jun 11, 2023 11:06 AM Reporting Lab: [facility] [address] [address] Performing Lab: [facility] [address] [place] MICROALBU MIN CREATININ E RATIO PANEL MICROALBUM IN/CREATIN INE [MASS RATIO] IN URINE 155.3 mg/g 0 - 29.9 03/17 H Specimen Type: URINE No comment entered. Ordering Provider: YENI PUENTES Report Released Date/Time: Jun 11, 2023 11:06 AM Reporting Lab: [facility] PEORIATRN [facility] [address] [address] Performing Lab: [facility]RJ[facility]ENTERTRN [facility]ITALUSETS [facility] [address] [address] [place] MICROALBU MIN CREATININ E RATIO PANEL MICROALBUM IN [MASS/VOLU ME] IN URINE 41.2 mg/dL 03/17 Specimen Type: URINE No comment entered. Ordering Provider: YENI PUENTES Report Released Date/Time: Jun 11, 2023 11:06 AM Reporting Lab: [place] [place] [facility]N [address] [address] Performing Lab: [facility] [address] [facility] [address] [place] MICROALBU MIN CREATININ E RATIO PANEL CREATININE [MASS/VOLU ME] IN URINE 265.23 mg/dL 03/17 Specimen Type: URINE No comment entered. Ordering Provider: YENI PUENTES Report Released Date/Time: Jun 11, 2023 11:06 AM Reporting Lab: [facility] [address] [address] Performing Lab: [facility]ITALUSE[address] [address] [place] URINALYSI S COLOR OF URINE Yellow 03/17 Specimen Type: URINE Comment: If Glucose = >500 and Ketones are positive, please alert the Physician. Ordering Provider: YENI PUENTES Report Released Date/Time: Jun 11, 2023 11:06 AM Reporting Lab: [facility] [address] [address] Performing Lab: [facility] [address] [address] [place] URINALYSI S APPEARANCE OF URINE Turbid 03/17 Specimen Type: URINE Comment: If Glucose = >500 and Ketones are positive, please alert the Physician. Ordering Provider: YENI PUENTES Report Released Date/Time: Jun 11, 2023 11:06 AM Reporting Lab: [facility] [address] [address] Performing Lab: [address] [address] [place] URINALYSI S GLUCOSE [MASS/VOLU ME] IN URINE Normalm g/dL 03/17 Specimen Type: URINE Comment: If Glucose = >500 and Ketones are positive, please alert the Physician. Ordering Provider: YENI PUENTES Report Released Date/Time: Jun 11, 2023 11:06 AM Reporting Lab: [address] [address] Performing Lab: [facility] [address] [address] [place] URINALYSI S KETONES [MASS/VOLU ME] IN URINE BY TEST STRIP TRACEmg /dL 03/17 Specimen Type: URINE Comment: If Glucose = >500 and Ketones are positive, please alert the Physician. Ordering Provider: YENI PUENTES Report Released Date/Time: Jun 11, 2023 11:06 AM Reporting Lab: [address] [address] Performing [facility]: [facility] [address] [address] [place] URINALYSI S ERYTHROCYT ES [PRESENCE] IN URINE SEDIMENT BY LIGHT MICROSCOPY NEGATIV Emg/dL 03/17 Specimen Type: URINE Comment: If Glucose = >500 and Ketones are positive, please alert the Physician. Ordering Provider: YENI PUENTES Report Released Date/Time: Jun 11, 2023 11:06 AM Reporting Lab: [address] [address] Performing Lab: [facility] [address] [address] [place] URINALYSI S PROTEIN [MASS/VOLU ME] IN URINE BY TEST STRIP 70 mg/dL 03/17 Specimen Type: URINE Comment: If Glucose = >500 and Ketones are positive, please alert the Physician. Ordering Provider: YENI PUENTES Report Released Date/Time: Jun 11, 2023 11:06 AM Reporting Lab: [address] [address] Performing Lab: [address] [address] [place] URINALYSI S NITRITE [PRESENCE] IN URINE NEGATIV Emg/dL 03/17 Specimen Type: URINE Comment: If Glucose = >500 and Ketones are positive, please alert the Physician. Ordering Provider: YENI PUENTES Report Released Date/Time: Jun 11, 2023 11:06 AM Reporting Lab: [address] [address] Performing Lab: [address] [address] [place] URINALYSI S BILIRUBIN. TOTAL [PRESENCE] IN URINE NEGATIV Emg/dL 03/17 Specimen Type: URINE Comment: If Glucose = >500 and Ketones are positive, please alert the Physician. Ordering Provider: YENI PUENTES Report Released Date/Time: Jun 11, 2023 11:06 AM Reporting Lab: [address] [address] Performing Lab: [address] [address] [place] URINALYSI S SPECIFIC GRAVITY OF URINE BY REFRACTOME TRY 1.022 1.016 - 1.022 03/17 Specimen Type: URINE Comment: If Glucose = >500 and Ketones are positive, please alert the Physician. Ordering Provider: YENI PUENTES Report Released Date/Time: Jun 11, 2023 11:06 AM Reporting Lab: [address] [address] Performing Lab: [facility] [address] [address] [place] URINALYSI S PH OF URINE BY TEST STRIP 5.5 5.0 - 9.0 03/17 Specimen Type: URINE Comment: If Glucose = >500 and Ketones are positive, please alert the Physician. Ordering Provider: YENI PUENTES Report Released Date/Time: Jun 11, 2023 11:06 AM Reporting Lab: [address] [address] Performing Lab: [address] [address] [place] URINALYSI S UROBILINOG EN [MASS/VOLU ME] IN URINE BY TEST STRIP Normalm g/dL <2.0 - 2.0 03/17 Specimen Type: URINE Comment: If Glucose = >500 and Ketones are positive, please alert the Physician. Ordering Provider: YENI PUENTES Report Released Date/Time: Jun 11, 2023 11:06 AM Reporting Lab: [address] [address] Performing Lab: [address] [address] [place] URINALYSI S LEUKOCYTE ESTERASE [PRESENCE] IN URINE BY TEST STRIP TRACE 03/17 Specimen Type: URINE Comment: If Glucose = >500 and Ketones are positive, please alert the Physician. Ordering Provider: YENI PUENTES Report Released Date/Time: Jun 11, 2023 11:06 AM Reporting Lab: [address] [address] Performing Lab: [address] [address] [place] LIPID PANEL FASTING CHOLESTERO L [MASS/VOLU ME] IN SERUM OR PLASMA 113 mg/dL 03/17 Specimen Type: SERUM No comment entered. Ordering Provider: YENI PUENTES Report Released Date/Time: Jun 11, 2023 11:06 AM Reporting Lab: [address] [address] Performing Lab: [facility] [place] [facility] [address] [address] [place] LIPID PANEL FASTING TRIGLYCERI DE [MASS/VOLU ME] IN SERUM OR PLASMA 141 mg/dL 0 - 150 03/17 Specimen Type: SERUM No comment entered. Ordering Provider: YENI PUENTES Report Released Date/Time: Jun 11, 2023 11:06 AM Reporting Lab: [facility]ITALUSETS [facility] [address] [facility] [address] Performing Lab: [facility]RL W[facility]N [facility]ITALUSETS [facility] [address] [facility] [address] [place] LIPID PANEL FASTING CHOLESTERO L IN LDL [MASS/VOLU ME] IN SERUM OR PLASMA BY CALCULATIO N 57 mg/dL 0 - 129 03/17 Specimen Type: SERUM No comment entered. Ordering Provider: YENI PUENTES Report Released Date/Time: Jun 11, 2023 11:06 AM Reporting Lab: [facility]ITALRJACKSON MEDICAL CENTERTRN [facility]PITALUSETS [facility] [address] [address] Performing Lab: [facility]ITALRL TRN [facility]ITALUSETS [facility] [address] [facility] [address] [place] LIPID PANEL FASTING CHOLESTERO L.TOTAL/CH OLESTEROL IN HDL [MASS RATIO] IN SERUM OR PLASMA 4.0 03/17 Specimen Type: SERUM No comment entered. Ordering Provider: YENI PUENTES Report Released Date/Time: Jun 11, 2023 11:06 AM Reporting Lab: [facility]ITALRJACKSON MEDICAL CENTERTRN [facility]OSPITALUSETS [facility] [address] [facility] [address] Performing Lab: [facility]RL WSTRN [facility]ITALUSETS [facility] [address] [address] [place] LIPID PANEL FASTING CHOLESTERO L IN HDL [MASS/VOLU ME] IN SERUM OR PLASMA 28 mg/dL 40 - 60 03/17 L Specimen Type: SERUM No comment entered. Ordering Provider: YENI PUENTES Report Released Date/Time: Jun 11, 2023 11:06 AM Reporting Lab: [facility]ITALRJACK[facility] CENTERTRN [facility]OSPITALUSETS [facility] [address] [facility] [address] Performing Lab: [facility]ITALRJACKSON MEDICAL CENTERTRN [facility]USER[facility] [address] [address] [place] LIVER FUNCTION PROTEIN [MASS/VOLU ME] IN SERUM OR PLASMA 7.2 g/dL 6.0 - 8.3 03/17 Specimen Type: SERUM No comment entered. Ordering Provider: YENI PUENTES Report Released Date/Time: Jun 11, 2023 11:06 AM Reporting Lab: [facility]ITALRL W[facility]N [facility]PITALUSETS [facility] [address] [facility] [address] Performing Lab: [facility] [address] [place] LIVER FUNCTION ALBUMIN [MASS/VOLU ME] IN SERUM OR PLASMA 3.9 g/dL 3.5 - 5.0 03/17 Specimen Type: SERUM No comment entered. Ordering Provider: YENI PUENTES Report Released Date/Time: Jun 11, 2023 11:06 AM Reporting Lab: [facility]ITALRL TRN [address] [address] Performing Lab: [facility]ITALRL TRN [facility]ITALUSE[address] [address] [place] LIVER FUNCTION ALKALINE PHOSPHATAS E [ENZYMATIC ACTIVITY/V OLUME] IN SERUM OR PLASMA 86 U/L 40 - 150 03/17 Specimen Type: SERUM No comment entered. Ordering Provider: YENI PUENTES Report Released Date/Time: Jun 11, 2023 11:06 AM Reporting Lab: [facility]ITALRL TRN [facility]USE[address] [address] Performing Lab: [facility]ITALRL TRN [facility]OSPITALUSETS [address] [address] [place] LIVER FUNCTION ASPARTATE AMINOTRANS FERASE [ENZYMATIC ACTIVITY/V OLUME] IN SERUM OR PLASMA 44 U/L 5 - 34 03/17 H Specimen Type: SERUM No comment entered. Ordering Provider: YENI PUENTES Report Released Date/Time: Jun 11, 2023 11:06 AM Reporting Lab: [facility]ITALRL W[facility]N [facility] [address] Performing Lab: [facility]ITALRJACKSON MEDICAL CENTERTRN [facility]ITALUSE[address] [address] [place] LIVER FUNCTION ALANINE AMINOTRANS FERASE [ENZYMATIC ACTIVITY/V OLUME] IN SERUM OR PLASMA 28 U/L 03/17 Specimen Type: SERUM No comment entered. Ordering Provider: YENI PUENTES Report Released Date/Time: Jun 11, 2023 11:06 AM Reporting Lab: [address] [address] Performing Lab: [address] [address] [facility] BILIRUBIN. TOTAL [MASS/VOLU ME] IN SERUM OR PLASMA 0.4 mg/dL 0.2 - 1.2 03/17 Specimen Type: SERUM No comment entered. Ordering Provider: YENI PUENTES Report Released Date/Time: Jun 11, 2023 11:06 AM Reporting Lab: [address] [address] Performing Lab: [address] [address] [facility] BASIC METABOLIC PANEL (fasting) UREA NITROGEN [MASS/VOLU ME] IN SERUM OR PLASMA 39 mg/dL 7 - 25 03/17 H Specimen Type: SERUM No comment entered. Ordering Provider: YENI PUENTES Report Released Date/Time: Jun 11, 2023 11:06 AM Reporting Lab: [address] [address] Performing Lab: [address] [address] [facility] BASIC METABOLIC PANEL (fasting) GLUCOSE [MASS/VOLU ME] IN SERUM OR PLASMA 121 mg/dL 65 - 100 03/17 H Specimen Type: SERUM No comment entered. Ordering Provider: YENI PUENTES Report Released Date/Time: Jun 11, 2023 11:06 AM Reporting Lab: [address] [address] Performing Lab: [address] [address] [facility] BASIC METABOLIC PANEL (fasting) SODIUM [MOLES/VOL UME] IN SERUM OR PLASMA 139 mmol/L 135 - 145 03/17 Specimen Type: SERUM No comment entered. Ordering Provider: YENI PUENTES Report Released Date/Time: Jun 11, 2023 11:06 AM Reporting Lab: [facility] [address] [facility] [address] Performing Lab: [facility] [address] [address] [place] BASIC METABOLIC PANEL (fasting) POTASSIUM [MOLES/VOL UME] IN SERUM OR PLASMA 4.2 mmol/L 3.5 - 5.0 03/17 Specimen Type: SERUM No comment entered. Ordering Provider: YENI PUENTES Report Released Date/Time: Jun 11, 2023 11:06 AM Reporting Lab: [facility] [address] [address] Performing Lab: [address] [address] [place] BASIC METABOLIC PANEL (fasting) CHLORIDE [MOLES/VOL UME] IN SERUM OR PLASMA 102 mmol/L 100 - 110 03/17 Specimen Type: SERUM No comment entered. Ordering Provider: YENI PUENTES Report Released Date/Time: Jun 11, 2023 11:06 AM Reporting Lab: [facility] [address] [facility] [address] Performing Lab: [facility] [address] [address] [place] BASIC METABOLIC PANEL (fasting) CARBON DIOXIDE, TOTAL [MOLES/VOL UME] IN SERUM OR PLASMA 28 meq/L 20 - 30 03/17 Specimen Type: SERUM No comment entered. Ordering Provider: YENI PUENTES Report Released Date/Time: Jun 11, 2023 11:06 AM Reporting Lab: [facility]ITALRRUSSE[facility]ENTERN [facility] [address] [address] Performing Lab: [facility] [address] [address] [place] BASIC METABOLIC PANEL (fasting) CREATININE [MASS/VOLU ME] IN SERUM OR PLASMA 1.83 mg/dL 0.50 - 1.40 03/17 H Specimen Type: SERUM No comment entered. Ordering Provider: YENI PUENTES Report Released Date/Time: Jun 11, 2023 11:06 AM Reporting Lab: [facility] [place] [facility] [address] [facility] [address] Performing Lab: [facility] [place] [facility] [address] [address] [employer] BASIC METABOLIC PANEL (fasting) GLOMERULAR FILTRATION RATE/1.73 SQ M.PREDICTE D [VOLUME RATE/AREA] IN SERUM, PLASMA OR BLOOD BY CREATININE -BASED FORMULA (CKD-EPI 2020) 36 mL/min 60 03/17 L Specimen Type: SERUM No comment entered. Ordering Provider: YENI PUENTES Report Released Date/Time: Jun 11, 2023 11:06 AM Reporting Lab: [facility] [place] [facility] [address] [facility] [address] Performing Lab: [facility] [place] [facility] [address] [address] [facility] Vital Signs Combined list of inpatient and outpatient Vital Signs from Department of Defense and Veterans Affairs, ranging from 12 months to all on record, depending upon the facility. Vital Sign Value Date Comments Source SYSTOLIC BLOOD PRESSURE 110 07/16/2024 10:05:00 [facility] [place] [facility] DIASTOLIC BLOOD PRESSURE 60 07/16/2024 10:05:00 [facility] [place] [facility] PULSE OXIMETRY 96 07/16/2024 10:05:00 [facility] [place] [facility] PAIN 4 07/16/2024 10:05:00 [facility] [place] [facility] TEMPERATURE 97.6 07/16/2024 10:05:00 [facility] [place] [facility] PULSE 60 07/16/2024 10:05:00 [facility] [place] [facility] RESPIRATION 16 07/16/2024 10:05:00 [facility] [place] [facility] SYSTOLIC BLOOD PRESSURE 136 05/30/2024 09:30:00 [facility] [...] HCS SYSTOLIC BLOOD PRESSURE 114 02/29/2024 11:30:00 [place] DIASTOLIC BLOOD PRESSURE 66 02/29/2024 11:30:00 [place] PULSE OXIMETRY 98 02/29/2024 11:30:00 [place] PAIN 2 02/29/2024 11:30:00 [place] TEMPERATURE 97.6 02/29/2024 11:30:00 [place] PULSE 52 02/29/2024 11:30:00 [place] RESPIRATION 16 02/29/2024 11:30:00 [place] SYSTOLIC BLOOD PRESSURE 134 01/22/2024 15:00:00 [...] 15:00:00 [facility] [place] [facility] Encounters Combined list of: 1) Encounters from Department of Veterans Affairs facilities going backup to the last 18 months, not all VA inpatient encounters are included; 2) Encounters from the Department of Defense facilities going backup to 280 months. Location Location Details Encounter Type Encounter Number Reason For Visit Attending Provider ADM Date DC Date Status Disposition Source [facility] Encounter [id number] JESSI BENSON 01/29 [facility] [place] En[facility] [id number] 02/05 [facility] [place] Encounter [id number] 02/14 [facility] [place] HEARING AID REPAIR/MOD IFYING [id number] Diagnos is: ICD-10- CM Z46.1 Encount er for fitting and adjustm ent of hearing aid RICARDO CARMEN 02/23 [place] [facility] Out[facility] Encounter [id number] 03/14 [facility] [place] Encounter [id number] 03/29 [facility] [place] Out[facility] Encounter [id number] Michelle LO 04/06 [facility] [place] Encounter [id number] 04/07 [facility] [place] HEARING AID REPAIR/MOD IFYING [id number] Diagnos is: ICD-10- CM Z46.1 Encount er for fitting and adjustm ent of hearing aid RICARDO CARMEN L 05/04 [facility] EST LOW 20 MIN [id number] Diagnos is: ICD-10- CM K86.1 Other chronic pancrea monicanaila SAM PUENTES 06/10 [facility] Encounter [id number] 06/10 [facility] [place] HEAR[place] A[place] REPAIR/MOD IFYING [id number] Diagnos is: ICD-10- CM Z46.1 Encount er for fitting and adjustm ent of hearing aid RICARDO CARMEN L 07/05 [facility] IE [facility] Out[facility] Encounter [id number] 07/26 [facility] HC PRO PHONE CALL 21-30 MIN [id number] 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 , left knee MADINA TRINIDAD 08/06 [facility] HHS/HOSPIC E OF RN EA 15 MIN [id number] Diagnos is: ICD-10- CM R68.89 Other general symptom s and signs Jazlyn MARIA 08/15 [facility] RN CARE EA 15 MIN HH/HOSPICE [id number] 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 , left knee MADINA TRINIDAD RODRIGUEZ 08/15 [facility] Out[facility] Encounter [id number] 08/20 [facility] [place] Out[facility] Encounter [id number] 09/18 [facility] MEASURE BLOOD OXYGEN LEVEL [id number] Diagnos is: ICD-10- CM C67.9 Maligna nt neoplas m of bladder , unspeci fied MADINA TRINIDAD 09/18 [facility] [place] [facility] [place] HEARING AID REPAIR/MOD IFYING [id number] Diagnos is: ICD-10- CM Z46.1 Encount er for fitting and adjustm ent of hearing aid RICARDO CARMEN 09/20 [place] [facility] Out[facility] Encounter [id number] 09/24 [facility] Out[facility] Encounter [id number] SAM PUENTES 09/27 [facility] Out[facility] Encounter [id number] Diagnos is: ICD-10- CM C67.9 Maligna nt neoplas m of bladder , unspeci fied SCOOTER,[place] ICA RUDY 10/07 [facility] Out[facility] Encounter [id number] 10/08 [facility] [place] [facility] [place] [facility] Outpatient Encounter [id number] 10/10 [facility] [place] [place] [facility] HHCP-SERV OF OT,EA 15 MIN [id number] Diagnos is: ICD-10- CM R26.9 Unspeci fied abnorma lities of gait and mobilit y LAMA,CAT HY L 10/14 [facility] [place] [facility] REPORT [id number] Diagnos is: ICD-10- CM Z13.6 Encount er for screeni ng for cardiov ascular disorde rs KRUPA WEBB 10/15 [place] [facility] [place] ELECTROCAR DIOGRAM TRACING [id number] Diagnos is: ICD-10- CM R00.1 Bradyca rdia, unspeci fied DINH RAMOS YS 10/15 [place] [facility] ELECTROCAR DIOGRAM TRACING [id number] Diagnos is: ICD-10- CM R00.1 Bradyca rdia, unspeci fied DINH RAMOS YS 10/15 [facility] [place] [facility] Outpatient Encounter [id number] [place] HEL[place] ICA RUDY 10/15 [facility] [place] [facility] Outpatient Encounter [id number] Diagnos is: ICD-10- CM R00.1 Bradyca rdia, unspeci fied DENNYS HELMS ICA RUDY 10/15 [facility] [place] [facility] [place] QNHP OL DIG ASSMT&MGMT 11-20 [id number] Diagnos is: ICD-10- CM 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 CELE VELÁZQUEZ Jazlyn 10/16 [place] [facility] CASE MANAGEMENT [id number] Diagnos is: ICD-10- CM Z65.9 Problem related to unspeci fied psychos ocial circums BIPIN Menendez RR NIKO 10/17 [facility] QNHP OL DIG ASSMT&MGMT 21+ [id number] Diagnos is: ICD-10- CM Z79.899 Other chcf (curren t) drug therapy CELE VELÁZQUEZ Jazlyn 10/18 [facility] Outpatient [facility]counter [id number] 10/22 [facility] HHCP-SERV OF OT,EA 15 MIN [id number] Diagnos is: ICD-10- CM R26.9 Unspeci fied abnorma lities of gait and mobilit y LAMA,CAT HY L 10/23 [facility] HC PRO PHONE CALL 5-10 MIN [id number] Diagnos is: ICD-10- CM Z71.89 Other specifi ed camp counselor ing BIPIN BORJA RR NIKO 10/24 [facility] [place] [place] [id number] Diagnos is: ICD-10- CM 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.3 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 camp counselor ing and 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 MARIPOSA Franklin 10/24 [facility] Outpatient Encounter [id number] 10/25 [facility] SELF CARE MNGMENT TRAINING [id number] Diagnos is: ICD-10- CM C67.9 Maligna nt neoplas m of bladder , unspeci fied MADINA TRINIDAD 10/25 [facility] Out[facility] Encounter [id number] DENNYS HELMS 10/29 [facility] Out[facility] Encounter [id number] 10/30 [facility] RN CARE EA 15 MIN HH/HOSPICE [id number] 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 , left knee MADINA TRINIDAD 10/30 [facility] Out[facility] Encounter [id number] [facility] [id number] 1.10/31 [facility] Out[facility]counter [id number] DENNYS HELMS 11/04 [facility] SELF CARE MNGMENT TRAINING [id number] Diagnos is: ICD-10- CM 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 MADINA TRINIDAD 11/07 [facility] Out[facility] Encounter [id number] 11/18 [facility] HC PRO PHONE CALL 5-10 MIN [id number] Diagnos is: ICD-10- CM R26.9 Unspeci fied abnorma lities of gait and mobilit y LAMA,CAT HY L 11/20 [facility] IMMUNIZATI [place] ADMIN [id number] MADINA TRINIDAD 11/21 [facility] SELF CARE MNGMENT TRAINING [id number] Diagnos is: ICD-10- CM 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 MADINA TRINIDAD 11/21 [facility] Out[facility] Encounter [id number] 11/24 [facility] HEARING AID REPAIR/MOD IFYING [id number] Diagnos is: ICD-10- CM Z46.1 Encount er for fitting and adjustm ent of hearing aid COREY JAIN L 11/26 [facility] [facility] COMPRE OPH EXAM EST PT 1/> [id number] Diagnos is: ICD-10- CM 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, bi, 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 MERHAR,ASHA H B 11/27 [facility] CPTR OPHTH DX IMG POST SEGMT [id number] Diagnos is: ICD-10- CM 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 12/03 [facility] En[facility] [id number] 12/10 [facility] ADMN SARSCOV2 VACC 1 DOSE [id number] MADINA TRINIDAD 12/10 [facility] SELF CARE MNGMENT TRAINING [id number] Diagnos is: ICD-10- CM I11.9 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 Diagnos is: ICD-10- CM Z79.899 Other chcf (curren t) drug therapy CELE VELÁZQUEZ 12/13 [facility] Out[facility] Encounter [id number] 12/24 [facility] EVAL AUD FUNCJ 1ST HOUR 53231-4.63 1. Diagnos is: ICD-10- CM H90.3 Sensori neural hearing loss, bilater al Kenn HANLEY YSABEL E 01/08 [facility] [place] [facility] En[facility] [id number] 01/15 [facility] Encounter [id number] 1.01/21 [facility] I[place]UNIZATI [place] ADMIN [id number] 1. 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 Diagnos is: ICD-10- CM I25.10 Athscl heart disease of [place] coronar y artery w/o ang pctrs MADINA TRINIDAD 02/21 [facility] QNHP OL DIG ASSMT&MGMT 21+ [id number] [id number] Diagnos is: ICD-10- CM Z79.899 Other chcf (curren t) drug therapy CELE VELÁZQUEZ Jazlyn 02/25 [facility] Out[facility] Encounter [id number] 02/25 [facility] SELF CARE MNGMENT TRAINING [id number] [id number] Diagnos is: ICD-10- CM I25.10 Athscl heart disease of [place] coronar y artery w/o ang pctrs MADINA TRINIDAD 02/28 [facility] [place] HEARING AID REPAIR/MOD IFYING [id number] Diagnos is: ICD-10- CM Z46.1 Encount er for fitting and adjustm ent of hearing aid RICARDO CARMEN L 02/28 [place] [facility] Outpatient Encounter [id number] [facility] SELF CARE MNGMENT TRAINING [id number] [id number] Diagnos is: ICD-10- CM 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 MADINA TRINIDAD 03/14 [facility] EAR IMPRESSION [id number] [id number] Diagnos is: ICD-10- CM Z46.1 Encount er for fitting and adjustm ent of hearing aid COREY JAIN L 03/17 [facility] En[facility] [id number] [id number] 03/18 [facility] Encounter [id number] 03/21 [facility] [place] HEARING AID REPAIR/MOD IFYING [id number] Diagnos is: ICD-10- CM Z46.1 Encount er for fitting and adjustm ent of hearing aid SANTANA KAT I 04/11 [place] [facility] HEARING AID REPAIR/MOD IFYING [id number] Diagnos is: ICD-10- CM Z46.1 Encount er for fitting and adjustm ent of hearing aid RICARDO CARMEN L 05/06 [facility] MEASURE BLOOD OXYGEN LEVEL [id number] [id number] Diagnos is: ICD-10- CM 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 MADINA TRINIDAD 05/09 [facility] OFFICE O/P EST LOW 20 MIN [id number] [id number] Diagnos is: ICD-10- CM 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), left tibia ROHIT ARAGON RLES D 05/22 [facility] Out[facility] Encounter [id number] 05/29 [facility] SELF CARE MNGMENT TRAINING [id number] [id number] Diagnos is: ICD-10- CM 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 MADINA TRINIDAD 05/30 [facility] En[facility] [id number] 05/30 [facility] NQHP OL DIG ASSMT&MGMT 21+ [id number] [id number] Diagnos is: ICD-10- CM Z79.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 CELE VELÁZQUEZ 06/02 [facility] Out[facility] Encounter [id number] 06/03 [facility] En[facility] [id number] 06/04 [facility] En[facility] [id number] 1.06/09 [facility] Encounter [id number] Diagnos is: ICD-10- CM G89.29 Other chronic pain TOREY-GRA DY,MARY 06/09 [facility] SYNCH AUDIO-ONLY EST SF 10 [id number] Diagnos is: ICD-10- CM G89.4 Chronic pain syndrom e TOREY-GRA DY,MARY 06/23 [facility] SYNCH AUDIO-ONLY EST LOW 20 [id number] Diagnos is: ICD-10- CM G89.4 Chronic pain syndrom e TOREY-GRA DY,MARY 07/02 [facility] Out[facility] Encounter [id number]/02 [facility] [place] SELF-HELP/ PEER SVC PER 15MIN [id number] [id number] Diagnos is: ICD-10- CM F41.9 Anxiety disorde r, unspeci fied OESTREICHE R,BELA 07/08 [place] [facility] Outpatient Encounter [id number] 07/15 [facility] SELF CARE MNGMENT TRAINING [id number] Diagnos is: ICD-10- CM G89.4 Chronic pain syndrom e MADINA TRINIDAD RODRIGUEZ 07/16 [facility] Outpatient Encounter [id number] Diagnos is: ICD-10- CM G89.4 Chronic pain syndrom e MARY DENNISON 07/16 [facility] Social History Combined list of available smoking, tobacco, and other social history from Department of Defense and Veterans Affairs facilities. Social History Type Response Date Comment Source Tobacco smoking status [facility] FORMER USER 06/11/2023 [facility] of [facility]11[facility]2023 [facility] of [facility] 02/18/2021 [facility] 01[facility]13/2020 [facility] History of tobacco use QUIT TOBACCO USE > 7 YEARS AGO 05/09/2017 does not smoke [facility] History of tobacco use LIFETIME NON-TOBACCO USER 07/18/2016 [facility] History of tobacco use QUIT TOBACCO USE > 7 YEARS AGO 05/11/2015 [facility] History of tobacco use HISTORY OF SMOKING 01/27/20051986 [facility] History of tobacco use HISTORY OF SMOKING 02/23/2004 stopped tobacco 17 years ago [facility] History of tobacco use NON-TOBACCO USER 02/14/2001 quit x 14yrs. [facility] Plan of Care List of future care activities from Department of Veterans Affairs facilities. Additional future care activities may be listed in the Assessment and Plan section. Date/Time Care Activity Care Activity Detail Facili ty 08/08/2024 AMBULATORY - REHAB MEDICINE AMBULATORY - REHAB MEDICINE [facility] Advance Directives List of completed, amended, or rescinded Advance Directives on record at Department of [facility] facilities. An actual copy of the Directive is not included. Date Advance Directive Provider Source 06/28/2009 ADVANCE DIRECTIVE MANUELITO MORELOS
--- OUTSIDE RECORDS SUMMARY | 2024-07-29 15:09 | XMS_ITS ---
Author Name [facility] [place] Organization [facility] [place] [place] Address [address] [place] [id number] Care Team Providers Care Test Development Engineer Name Role Phone BONITA HELMS Primary Care [...] Mueller's Name Patient's Relationship to Policy Mueller [facility] MEDICARE SUPPLEMEN MEGHANA KCEX ANDRY Jarrett Mar 12, 2016 [id number] PRIYANK TURPIN SEPH PATIENT MEDICARE (WNR) MEDICARE (M) PART B May 10, 2004 PART B [id number] [phone] PRIYANK TURPIN SEPH PATIENT MEDICARE (WNR) MEDICARE (M) PART B May 10, 2004 PART B [id number] [phone] PRIYANK TURPIN SEPH PATIENT MEDICARE (WNR) MEDICARE (M) PART A July 10, 1997 PART A [id number] PRIYANK TURPIN PATIENT MEDICARE (WNR) MEDICARE (M) PART A July 10, 1997 PART A [id number] PRIYANK TURPIN PATIENT Selected Encounter This section includes the information on record at OR for the Encounter. Date/Time Encounter Type Encounter Description Reason Provider Source July 16, 2024 10:00 AM SELF CARE MNGMENT TRAINING [facility] Nursing (RN / LP) ICD-10-CM G89.4 Chronic pain syndrome DALTON TRINIDAD Luiza Encounter Template Text not used by OR Assessments - Encounter Diagnoses This section includes the primary and secondary diagnoses documented for the Encounter. Date/Time Primary/Secondary Diagnosis Diagnosis Name Provider Source July 16, 2024 04:37 PM PRIMARY Chronic pain syndrome DAVID TRINIDAD [facility] July 16, 2024 04:37 PM SECONDARY Type 1 diabetes mellitus with hyperglycemia DAVID TRINIDAD [facility] Plan of Treatment: Future Appointments (+ 6 months) and Future Tests (+/- 45 days) The Plan of Treatment section includes future care activities for the [facility] This section includes future appointments and future orders which are active, pending or scheduled. Future Appointments This section includes appointments that were scheduled to occur 6 months from the date of the Encounter, up to a maximum of 20 appointments. The data comes from all OR treatment [facility]. Appointment Date/Time Appointment Type Appointme nt Facility Name July 23, 2024 11:00 AM AMBULATORY - [facility] August 08, 2024 11:00 AM AMBULATORY - REHAB MEDICIN [facility] [place] Sep 03, 2024 12:30 PM AMBULATORY - MEDICINE [facility] Active, Pending, and Scheduled Orders This section includes a listing of several types of active, pending, and scheduled orders, including clinic medications orders, diagnostic test orders, procedure orders and consult orders; where the start date of the order is 45 days before the date of the Encounter or 45 days after the date of theEncounter. The data comes from all [place] treatment facilities. Test Date/Time Test Type Test Details Facility Name Jun 03, 2024 10:59 AM Consult Order COMMUNITY CARE-ENDOCRINE Cons Denture Laboratory Technician's Choice [facility] Jul 04, 2024 12:00 AM Laboratory - Chemistry Order ALCOHOL, ETHYL URINE PANEL [facility] [place] [facility] Jul 04, 2024 12:00 AM Laboratory - Chemistry Order AMPHETAMINES SCREEN PANEL URINE (DRUG) [facility] [place] [facility] Jul 04, 2024 12:00 AM Laboratory - Chemistry Order FENTANYL SCREEN PANEL URINE (DRUG) [facility] Jul 04, 2024 12:00 AM Laboratory - Chemistry Order BENZODIAZEPINES SCREEN PANEL UR[facility]UG[facility] Jul 04, 2024 12:00 AM Laboratory - Chemistry Order CANNABINOIDS SCREEN PANEL URINE (DRUG) [facility] [place] [facility] Jul 04, 2024 12:00 AM Laboratory - Chemistry Order COCAINE SCREEN PANEL UR[facility]DRUG[facility] Jul 04, 2024 12:00 AM Laboratory - Chemistry Order BUPRENORPHINE SCREEN PANEL URINE (DRUG) [facility] Jul 04, 2024 12:00 AM Laboratory - Chemistry Order OPIATES SCREEN PANEL URINE (DRUG) [facility] Jul 04, 2024 12:00 AM Laboratory - Chemistry Order OXYCODONE SCREEN PANEL URINE (DRUG) [facility] Jul 04, 2024 12:00 AM Laboratory - Chemistry Order METHADONE SCREEN (CH) URINE (DRUG) [facility] Vital Signs: All taken on the encounter date This section contains inpatient and outpatient Vital Signs collected on the date of the Encounter. Date/Time Temperature Pulse Blood Pressure Respiratory Rate SP02 Pain Height Weight Body Mass Index Source July 16, 2024 10:05 AM 97.6 60 110/60 16 96 4 [facility] Social History: Smoking Status (Most current) and Tobacco Use (All prior to encounter date) This section includes the most current, and the historical, smoking and tobacco- related health factors from the OR facility where the Encounter took place. Current Smoking Status This section includes the most current smoking, or tobacco-related health factor, from the OR facility where the Encounter took place. Date/Time Current Smoking Status Comment Facil saundray Mar 24, 2022 10:01 AM OR-TOBACCO NEVER USED [facility] [place] [facility] Advance Directives: All historical and current Section Date Range: From patient's date of to the date document was created. This section includes ALL of a patient's completed or amended VA Advance and Rescinded Directives. The entries below indicate that a directive exists for the patient, but an actual copy is not included with this document. The data comes from all OR facilities. Date Advance Directives Provider Source Jun 28, 2009 ADVANCE DIRECTIVE MANUELITO MORELOS Encounter Notes: All associated encounter notes This section contains the clinical notes associated to the Encounter. Date/Time Encounter Note(s) Provider Source July 16, 2024 04:38 PM ADDENDUM: LOCAL TITLE: Addendum STANDARD TITLE: ADDENDUM DATE OF NOTE: JULY 16, 2024@16:38:05 ENTRY DATE: JULY 16, 2024@16:38:06 AUTHOR: DALTON TRINIDAD COSIGNER: URGENCY: STATUS: COMPLETED needs renewal of the following: SERTRALINE HCL 100MG TAB TAKE ONE TABLET BY MOUTH TWICE ACTIVE DAILY /devon/ Dalton Trinidad RN [facility] splicer operator Signed: 07/16/2024 16:38 Receipt Acknowledged By: 07/18/2024 09:28 /devon/ BONITA HELMS [facility] NURSE PRACTITIONER --- Original Document --- 07/16/24 HBJAMAR RN PROGRESS NOTE: Nursing Progress Note Active and Recently Outpatient Medications (including Supplies): Active Outpatient Medications Status 1) ACCU-CHEK GUIDE (GLUCOSE) TEST STRIP USE 1 STRIP TO TEST ACTIVE BLOOD SUGARS FOUR TIMES A DAY 2) AMLODIPINE BESYLATE 10MG TAB TAKE ONE TABLET BY MOUTH ONCE ACTIVE DAILY FOR BLOOD PRESSURE/HEART, DO NOT TAKE WITH GRAPEFRUIT JUICE REPLACE LOSARTAN 3) ATORVASTATIN CALCIUM 20MG TAB TAKE ONE TABLET BY MOUTH AT ACTIVE BEDTIME FOR CHOLESTEROL 4) BUPRENORPHINE 7.5MCG/HR PATCH APPLY 1 PATCH TO SKIN EVERY 7 ACTIVE DAYS (REMOVE PATCH BEFORE APPLYING A NEW PATCH) STOP 10MCG/HR PATCH Indication: FOR PAIN 5) CALCIUM 500MG/VITAMIN D 200 UNT TAB TAKE 1 TABLET BY MOUTH ACTIVE TWICE DAILY Indication: FOR CALCIUM SUPPLEMENT 6) CREON 24,000UNIT EC CAP TAKE 3 CAPSULES BY MOUTH THREE TIMES ACTIVE A DAY 7) DEPEND UNDERWEAR,MAXIMUM,MEN LARGE USE 1 BRIEF DIRECTED ACTIVE ONCE DAILY NEEDED FOR PERSONAL CARE 8) GLUCOSE 4GM CHEW TAB CHEW FOUR TABLETS BY MOUTH NEEDED ACTIVE Indication: FOR LOW BLOOD SUGAR 9) HYDROCODONE 5MG/ACETAMINOPHEN 325MG TAB TAKE 1 TABLET BY ACTIVE MOUTH THREE TIMES DAILY NEEDED NEXT FILL 08/15 Indication: FOR PAIN 10) INSULIN SYRINGE 0.5ML 30G 12MM USE 1 SYRINGE SUBCUTANEOUSLY ACTIVE ONCE DAILY FOR INSULIN INJECTIONS 11) INSULIN,ASPART,HUMAN 100 UNIT/ML INJ INJECT INSULIN ACTIVE SUBCUTANEOUSLY THREE TIMES DAILY NEEDED ACCORDING TO SLIDING SCALE 12) MEDICATION DISPOSAL PATIENT PKT USE 1 ENVELOPE DIRECTED ACTIVE ONE TIME TO DISPOSE OF UNUSED MEDICATIONS 13) METOPROLOL TARTRATE 25MG TAB TAKE ONE-HALF TABLET BY MOUTH ACTIVE TWICE DAILY FOR BLOOD PRESSURE/HEART Indication: FOR MYOCARDIAL REINFARCTION PREVENTION 14) MULTIVIT/OPHTH AREDS2/LUTE/ZEAX CAP/TAB TAKE 1 CAPSULE BY ACTIVE MOUTH TWICE DAILY IN THE MORNING AND EVENING, WITH FOOD 15) TAMSULOSIN HCL 0.4MG CAP TAKE ONE CAPSULE BY MOUTH ONCE ACTIVE DAILY Indication: FOR ENLARGED PROSTATE 16) ZOLPIDEM TARTRATE 5MG TAB TAKE ONE TABLET BY MOUTH AT ACTIVE BEDTIME NEEDED Indication: FOR SLEEP Inactive Outpatient Medications Status 1) CARBOXYMETHYLCELLULOSE NA 0.5% OPH SOLN INSTILL 1 DROP INTO EACH EYE FOUR TIMES DAILY NEEDED Indication: FOR DRY EYE Active Non-VA Medications Status 1) Non-VA NALOXONE HCL 4MG/SPRAY SOLN NASAL SPRAY 1 SPRAY ONE ACTIVE NOSTRIL ONE TIME NEEDED Indication: FOR OPIOID OVERDOSE 2) Non-VA OTHER CAP/TAB FISH OIL, 1000MG EVERY DAY ACTIVE 19 Total Medications MEDICATION REVIEW Medication review completed during home visit. The was given the opportunity to discuss and ask questions about all prescription medications as well as dietary and herbal supplements, vitamins, OTC medications, etc. Currently the is taking his/her medications as per the active orders in the electronic record. A copy of the active medication list was left in patient's home at time of visit. [place] identified by: Facial Recognition Length of visit in home: 40 min Problem addressed for this visit:Pain, Diabetes NURSING SUMMARY:Visit made to at home for assessment, med review. VVC visit done with [facility] [employer] HEATER TENDER , see note, to review pain mgt. [place] will be getting decreased dose of Butrans patch in the mail as he feels too tired on the 10mcg patch. will cont. with Hydrocodone BID and in afternoon if needed. [place] has had no falls. No ER visits. Has appt next week with . Insulin pump continues to be a challenge. Spouse does most of the care and oversight of 's blood sugars and insulin. This business writer called [employer] requested a visit from the rep. to come to the home and go over pump again as spouse has a lot of questions. Spouse feels she is ok to wait until MD appt next week. She will call them directly if needed. getting very overwhelmed and feels more anxious. Rates pain 4/10 left leg. Patch seems to be helping overall as his pain was 7/10 before. [place] waiting for alpha-stim as he will be doing this at home. [place] is talkative and pleasant during visit. Car is in the shop, feeling anxious about this also. Son helping out and is taking them to pick it up later. DIscussed ART HISTORY INSTRUCTOR support as an option, [place] denies at this time. Will cont. to monitor. Blood Pressure: 110/60 (07/16/2024 10:05) Pulse: 60 (07/16/2024 10:05) Respiration: 16 (07/16/2024 10:05) Temperature: 97.6 F [36.4 C] (07/16/2024 10:05) Pain Score: 4 (07/16/2024 10:05) left leg. EXAMINATION: Lungs: clear Edema: no edema HR: reg Bowel/Bladder: denies constipation, urine clear. c/o urgency. No blood noted. Followed by urology. Skin: intact If pain score is above 0/10:4/10 Are you having any new pain or worsening chronic pain? No new pain, is satisfied with currnet pain mgt. plan. Home Safety FALLS NO INFECTIONS NO ER/HOSPITALIZATIONS NO Teaching/goals: HAS ONGOING COMPLEX MEDICAL NEEDS. BENEFITS FROM ONGOING [facility] INTERDISCIPLINARY MGT. AND MEDICAL OVERSIGHT. AND CAREGIVER ARE INCLUDED IN DECISION MAKING. EDUCATION PROVIDED REGARDING MEDICATIONS, DISEASE MGT. WILL BE FREE FROM FALLS, INFECTIONS AND HOSPITALIZATIONS IN THE NEXT 30 DAYS. Patient verbalizes understanding to above and will call with any concerns or changes in condition. For emergent care call 911. PLAN FOR NEXT VISIT: 2-4 WEEKS, GO OVER PAIN MGT, PLAN/ CARDIAC ASSESSMENT, REVIEW BLOOD SUGARS, MED COMPLIANCE,SAFETY /es/ Dalton Trinidad RN [facility] splicer operator Signed: 07/16/2024 16:37 DALTON TRINIDAD [place] [facility] [place] [facility] July 16, 2024 10:05 AM [facility] NURSING NOTE: LOCAL TITLE: [facility] RN PROGRESS NOTE STANDARD TITLE: [facility] NURSING NOTE DATE OF NOTE: JULY 16, 2024@10:05 ENTRY DATE: JULY 16, 2024@15:21:12 AUTHOR: DALTON TRINIDAD EXP COSIGNER: URGENCY: STATUS: COMPLETED [facility] RN PROGRESS NOTE Has ADDENDA Nursing Progress Note Active and Recently Outpatient Medications (including Supplies): Active Outpatient Medications Status 1) ACCU-CHEK GUIDE (GLUCOSE) TEST STRIP USE 1 STRIP TO TEST ACTIVE BLOOD SUGARS FOUR TIMES A DAY 2) AMLODIPINE BESYLATE 10MG TAB TAKE ONE TABLET BY MOUTH ONCE ACTIVE DAILY FOR BLOOD PRESSURE/HEART, DO NOT TAKE WITH GRAPEFRUIT JUICE REPLACE LOSARTAN 3) ATORVASTATIN CALCIUM 20MG TAB TAKE ONE TABLET BY MOUTH AT ACTIVE BEDTIME FOR CHOLESTEROL 4) BUPRENORPHINE 7.5MCG/HR PATCH APPLY 1 PATCH TO SKIN EVERY 7 ACTIVE DAYS (REMOVE PATCH BEFORE APPLYING A NEW PATCH) STOP 10MCG/HR PATCH Indication: FOR PAIN 5) CALCIUM 500MG/VITAMIN D 200 UNT TAB TAKE 1 TABLET BY MOUTH ACTIVE TWICE DAILY Indication: FOR CALCIUM SUPPLEMENT 6) CREON 24,000UNIT EC CAP TAKE 3 CAPSULES BY MOUTH THREE TIMES ACTIVE A DAY 7) DEPEND UNDERWEAR,MAXIMUM,MEN LARGE USE 1 BRIEF DIRECTED ACTIVE ONCE DAILY NEEDED FOR PERSONAL CARE 8) GLUCOSE 4GM CHEW TAB CHEW FOUR TABLETS BY MOUTH NEEDED ACTIVE Indication: FOR LOW BLOOD SUGAR 9) HYDROCODONE 5MG/ACETAMINOPHEN 325MG TAB TAKE 1 TABLET BY ACTIVE MOUTH THREE TIMES DAILY NEEDED NEXT FILL 08/15 Indication: FOR PAIN 10) INSULIN SYRINGE 0.5ML 30G 12MM USE 1 SYRINGE SUBCUTANEOUSLY ACTIVE ONCE DAILY FOR INSULIN INJECTIONS 11) INSULIN,ASPART,HUMAN 100 UNIT/ML INJ INJECT INSULIN ACTIVE SUBCUTANEOUSLY THREE TIMES DAILY NEEDED ACCORDING TO SLIDING SCALE 12) MEDICATION DISPOSAL PATIENT PKT USE 1 ENVELOPE DIRECTED ACTIVE ONE TIME TO DISPOSE OF UNUSED MEDICATIONS 13) METOPROLOL TARTRATE 25MG TAB TAKE ONE-HALF TABLET BY MOUTH ACTIVE TWICE DAILY FOR BLOOD PRESSURE/HEART Indication: FOR MYOCARDIAL REINFARCTION PREVENTION 14) MULTIVIT/OPHTH AREDS2/LUTE/ZEAX CAP/TAB TAKE 1 CAPSULE BY ACTIVE MOUTH TWICE DAILY IN THE MORNING AND EVENING, WITH FOOD 15) TAMSULOSIN HCL 0.4MG CAP TAKE ONE CAPSULE BY MOUTH ONCE ACTIVE DAILY Indication: FOR ENLARGED PROSTATE 16) ZOLPIDEM TARTRATE 5MG TAB TAKE ONE TABLET BY MOUTH AT ACTIVE BEDTIME NEEDED Indication: FOR SLEEP Inactive Outpatient Medications Status 1) CARBOXYMETHYLCELLULOSE NA 0.5% OPH SOLN INSTILL 1 DROP INTO EACH EYE FOUR TIMES DAILY NEEDED Indication: FOR DRY EYE Active Non-VA Medications Status 1) Non-VA NALOXONE HCL 4MG/SPRAY SOLN NASAL SPRAY 1 SPRAY ONE ACTIVE NOSTRIL ONE TIME NEEDED Indication: FOR OPIOID OVERDOSE 2) Non-VA OTHER CAP/TAB FISH OIL, 1000MG EVERY DAY ACTIVE 19 Total Medications MEDICATION REVIEW Medication review completed during home visit. The was given the opportunity to discuss and ask questions about all prescription medications as well as dietary and herbal supplements, vitamins, OTC medications, etc. Currently the is taking his/her medications as per the active orders in the electronic record. A copy of the active medication list was left in patient's home at time of visit. identified by: Facial Recognition Length of visit in home: 40 min Problem addressed for this visit:Pain, Diabetes NURSING SUMMARY:Visit made to at home for assessment, med review. VVC visit done with [facility] [employer] HEATER TENDER , see note, to review pain mgt. [place] will be getting decreased dose of Butrans patch in the mail as he feels too tired on the 10mcg patch. [place] will cont. with Hydrocodone BID and in afternoon if needed. [place] has had no falls. No ER visits. Has appt next week with . Insulin pump continues to be a challenge. Spouse does most of the care and oversight of 's blood sugars and insulin. This business writer called [employer] requested a visit from the rep. to come to the home and go over pump again as spouse has a lot of questions. Spouse feels she is ok to wait until MD appt next week. She will call them directly if needed. [place] getting very overwhelmed and feels more anxious. Rates pain 4/10 left leg. Patch seems to be helping overall as his pain was 7/10 before. waiting for alpha-stim as he will be doing this at home. is talkative and pleasant during visit. Car is in the shop, feeling anxious about this also. Son helping out and is taking them to pick it up later. DIscussed ART HISTORY INSTRUCTOR support as an option, [place] denies at this time. Will cont. to monitor. Blood Pressure: 110/60 (07/16/2024 10:05) Pulse: 60 (07/16/2024 10:05) Respiration: 16 (07/16/2024 10:05) Temperature: 97.6 F [36.4 C] (07/16/2024 10:05) Pain Score: 4 (07/16/2024 10:05) left leg. EXAMINATION: Lungs: clear Edema: no edema HR: reg Bowel/Bladder: denies constipation, urine clear. c/o urgency. No blood noted. Followed by urology. Skin: intact If pain score is above 0/10:4/10 Are you having any new pain or worsening chronic pain? No new pain, is satisfied with currnet pain mgt. plan. Home Safety FALLS NO INFECTIONS NO ER/HOSPITALIZATIONS NO Teaching/goals: HAS ONGOING COMPLEX MEDICAL NEEDS. BENEFITS FROM ONGOING [facility] INTERDISCIPLINARY MGT. AND MEDICAL OVERSIGHT. AND CAREGIVER ARE INCLUDED IN DECISION MAKING. EDUCATION PROVIDED REGARDING MEDICATIONS, DISEASE MGT. WILL BE FREE FROM FALLS, INFECTIONS AND HOSPITALIZATIONS IN THE NEXT 30 DAYS. Patient verbalizes understanding to above and will call with any concerns or changes in condition. For emergent care call 911. PLAN FOR NEXT VISIT: 2-4 WEEKS, GO OVER PAIN MGT, PLAN/ CARDIAC ASSESSMENT, REVIEW BLOOD SUGARS, MED COMPLIANCE,SAFETY /es/ Dalton Trinidad RN [facility] splicer operator Signed: 07/16/2024 16:37 07/16/2024 ADDENDUM STATUS: COMPLETED needs renewal of the following: SERTRALINE HCL 100MG TAB TAKE ONE TABLET BY MOUTH TWICE ACTIVE DAILY /devon/ Dalton Trinidad RN JAMAR splicer operator Signed: 07/16/2024 16:38 Receipt Acknowledged By: * AWAITING SIGNATURE * BONITA HELMS GRETCHEN [facility]
--- OUTSIDE RECORDS SUMMARY | 2024-07-29 15:09 | XMS_ITS | Encounter Summary ---
Author Name [facility] [place] Address [address] [place] [address] Care Team Providers Care Cookie Breaker Name Role Phone BONITA HELMS Primary Care [...] MEGHANA MEDEX ANDRY E Mar 12, 2016 [id number] PRIYANK TURPIN SEPH PATIENT MEDICARE (WNR) MEDICARE (M) PART B May 10, 2004 PART B [id number] [id number] [phone] PRIYANK TURPIN SEPH PATIENT MEDICARE (WNR) MEDICARE (M) PART B May 10, 2004 PART B [id number] PRIYANK TURPIN SEPH PATIENT MEDICARE (WNR) MEDICARE (M) PART A July 10, 1997 PART A [id number] [id number] PRIYANK TURPIN PATIENT MEDICARE (WNR) MEDICARE (M) PART A July 10, 1997 PART A [id number] PRIYANK TURPIN PATIENT Selected Encounter This [...] 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 MERHAR,ANUPAMA B [facility] Plan of Treatment: Future Appointments (+ 6 months) and Future Tests (+/- 45 days) The Plan of Treatment section includes future care activities for the patient from all [place] [facility]. This section includes future appointments and future [...] REHAB [place]IC[place] [facility] [place] [facility] Feb 29, 2024 11:00 AM AMBULATORY - REHAB MEDICIN [facility] Mar 17, 2024 11:00 AM AMBULATORY - [place] [facility] [place] [facility] Apr 11, 2024 01:00 PM AMBULATORY - REHAB MEDICIN E [place] May 06, 2024 10:30 AM AMBULATORY - [place] [facility] [place] [facility] May 22, 2024 11:30 AM AMBULATORY - [facility] Social History: Smoking Status (Most current) and [...] 24, 2022 10:01 AM VA-TOBACCO NEVER USED [facility] Advance Directives: All historical and current Section [...] Continue to monitor /devon/ ANUPAMA COONEY OD Telemetry Rn Signed: 11/28/2023 11:42 ANUPAMA COONEY [facility]
--- OUTSIDE RECORDS SUMMARY | 2024-07-29 15:09 | XMS_ITS | Encounter Summary ---
Author Name [facility] [place] Organization [facility] [place] Address [address] [place] [address] Care Team Providers Care Coke Still Cleaner Name Role Phone BONITA HELMS Primary Care [...] Mueller's Name Patient's Relationship to Policy Mueller [facility] MEDICARE SUPPLEMEN MEGHANA MEDEX ANDRY E Mar 12, 2016 [id number] PRIYANK TURPIN SEPH PATIENT MEDICARE (WNR) MEDICARE (M) PART B May 10, 2004 PART B [id number] PRIYANK TURPIN SEPH PATIENT MEDICARE (WNR) MEDICARE (M) PART B May 10, 2004 PART B [id number] [phone] PRIYANK TURPIN SEPH PATIENT MEDICARE (WNR) MEDICARE (M) PART A July 10, 1997 PART A [id number] PRIYANK TURPIN PATIENT MEDICARE (WNR) MEDICARE (M) PART A July 10, 1997 PART A [id number] PRIYANK TURPIN PATIENT Selected Encounter This [...] invl MERHAR,ANUPAMA B [facility] [place] [facility] Dec 17, 2023 08:43 AM SECONDARY Presence of intraocular lens MERHAR,ANUPAMA B [facility] [place] [facility] Dec 17, 2023 08:43 AM SECONDARY Regular astigmatism, bilateral MERHAR,ANUPAMA B [facility] [place] [facility] Dec 17, 2023 08:43 AM SECONDARY Type 2 diab with mild nonp rtnop without macular edema, bi MERHAR,ANUPAMA B [facility] [place] [facility] Plan of Treatment: Future Appointments (+ 6 [...] 02:00 PM AMBULATORY - REHAB MEDICIN E [facility] [place] [facility] Feb 29, 2024 11:00 AM AMBULATORY - REHAB MEDICIN E [facility] Mar 17, 2024 11:00 AM AMBULATORY - REHAB MEDICIN E [facility] [place] [facility] Apr 11, 2024 01:00 PM AMBULATORY - REHAB MEDICIN E [facility] May 06, 2024 10:30 AM AMBULATORY - REHAB MEDICIN E [facility] [place] [facility] May 22, 2024 11:30 AM [facility] Social History: Smoking Status (Most current) and [...] 24, 2022 10:01 AM [facility]ACCO [facility] Advance Directives: All historical and current [...] Code Description 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 ([facility] [id number]) H35.3130 Advanced age related macular degeneration ([facility] [id number]) H91.93 Hearing impaired ([facility] 93713331) C67.9 Bladder cancer ([facility] [id number]) M75.120 Full thickness rotator cuff tear ([facility] [id number]) M54.12 Cervical radiculopathy ([facility] 61851133) I25.10 Coronary artery disease ([facility] 11336045) 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 Generalized anxiety disorder ([facility] [id number]) K86.1 Pancreatitis ([facility] 06888195) 799.9 ENDOSCOPY (ICD-9-CM 799.9) R31.9 Hematuria ([facility] 76037114) 799.9 Foot drop (ICD-9-CM 799.9) 799.9 Trochanteric Bursitis (ICD-9-CM 799.9) V76.51 Screening for Malignant Neoplasms of colon (ICD-9-CM V76.51) 389.10 SENSORNEUR HEAR LOSS NOS (ICD-9-CM 389.10) 530.81 Gastroesophageal Reflux Disorder (ICD-9-CM 530.81) I11.9 Hypertension ([facility] [id number]) 311. Depressive Disorder NOS (ICD-9-CM 311.) E10.65 Diabetes mellitus ([facility] 47554170) 272.4 HYPERLIPIDEMIA NEC/NOS (ICD-9-CM 272.4) Other: SYSTEMIC [...] of active outpatient prescriptions dispensed from this [place] (local) and dispensed from another [place] or [facility] facility (remote) as well as inpatient orders [...] may not be complete. Please check JLV. Allergies/ADRs (Tool #5) FACILITY ALLERGY/ADR -------- [facility] CONTRAST MEDIA [facility] [place] [facility] CONTRAST MEDIA, OTHER [facility] GUAFENESIN DEXTROMETHORPHAN SYRUP [facility] RADIOLOGICAL/CONTRAST MEDIA Med Recon NoGlossary (Tool #1) INCLUDED IN THIS LIST: Alphabetical list of active outpatient prescriptions dispensed from this [place] (local) and dispensed from another [place] or [facility] facility (remote) as well as inpatient orders (local pending and active), local clinic medications, locally documented non-VA medications, and local prescriptions that have or been discontinued in the past 90 days. Non-VA Meds Last Documented On: May 09, 2017 NOTE The display of VA prescriptions dispensed from another [place] or [facility] facility (remote) is limited to active outpatient prescription entries matched to National Drug File at the originating site and may not include some items such as investigational drugs, compounds, etc. NOT INCLUDED IN THIS LIST: Medications self-entered by the patient into personal health records (i.e. [employer]) are NOT included in this list. Non-VA medications documented outside this [place], remote inpatient orders (regardless of status) and [...] TAKE WITH GRAPEFRUIT JUICE REPLACE LOSARTAN Rx# [id number] Last Released: 09/24/23 Qty/Days Supply: 90 Rx Expiration Date: 06/11/24 Refills Remainin OUTPT ATORVASTATIN CALCIUM 20MG TAB (Status = Active) TAKE ONE TABLET BY MOUTH AT BEDTIME FOR CHOLESTEROL Rx# [id number] Last Released: 08/22/23 Qty/Days Supply: 90 Rx Expiration Date: 06/11/24 Refills Remainin OUTPT CALCIUM 500MG/VITAMIN D 200 UNT TAB (Status = Active) TAKE 1 TABLET BY MOUTH TWICE DAILY FOR CALCIUM SUPPLEMENT Rx# [id number] Last Released: 10/31/23 Qty/Days Supply: 180/90 Rx Expiration Date: 10/23/24 Refills Remainin Indication: FOR CALCIUM SUPPLEMENT OUTPT CARBOXYMETHYLCELLULOSE NA 0.5% OPH SOLN (Status = Active) INSTILL 1 DROP INTO EACH EYE FOUR TIMES DAILY NEEDED FOR DRY EYE Rx# [id number] Last Released: 10/11/23 Qty/Days Supply: 15 Rx Expiration Date: 06/21/24 Refills Remainin Indication: FOR DRY EYE OUTPT CREON 24,000UNIT EC CAP (Status = Active) TAKE 3 CAPSULES BY MOUTH THREE TIMES A DAY Rx# [id number] Last Released: 10/31/23 Qty/Days Supply: 300/30 Rx Expiration Date: 08/14/24 Refills Remainin OUTPT GLUCOSE 4GM CHEW TAB (Status = Active) CHEW FOUR TABLETS BY MOUTH NEEDED FOR LOW BLOOD SUGAR Rx# [id number] Last Released: 10/11/23 Qty/Days Supply: 60 Rx Expiration Date: 10/08/24 Refills Remainin Indication: FOR LOW BLOOD SUGAR OUTPT HYDROCODONE 5MG/ACETAMINOPHEN 325MG TAB (Status = Discontinued) TAKE 1 TABLET BY MOUTH THREE TIMES DAILY NEEDED FOR PAIN NEXT FILL 09/24/23 Rx# [id number] Last Released: 08/27/23 Qty/Days Supply: Rx Expiration Date: 09/21/23 Refills Remainin Indication: FOR PAIN OUTPT HYDROCODONE 5MG/ACETAMINOPHEN 325MG TAB (Status = ) TAKE 1 TABLET BY MOUTH THREE TIMES DAILY NEEDED FOR PAIN NEXT FILL 10/22/23 Rx# [id number] Last Released: 09/24/23 Qty/Days Supply: Rx Expiration Date: 10/24/23 Refills Remainin Indication: FOR PAIN OUTPT HYDROCODONE 5MG/ACETAMINOPHEN 325MG TAB (Status = Active) TAKE 1 TABLET BY MOUTH THREE TIMES DAILY NEEDED NEXT FILL 11/27 Rx# [id number] Last Released: 10/31/23 Qty/Days Supply: Rx Expiration Date: 11/30/23 Refills Remainin Indication: FOR PAIN OUTPT INSULIN,ASPART,HUMAN 100 UNIT/ML INJ (Status = Active) INJECT INSULIN SUBCUTANEOUSLY THREE TIMES DAILY NEEDED ACCORDING TO SLIDING SCALE Rx# [id number] Last Released: 10/25/23 Qty/Days Supply: 06/08 Rx Expiration Date: 03/19/24 Refills Remainin OUTPT METOPROLOL TARTRATE 25MG TAB (Status = Discontinued) TAKE ONE TABLET BY MOUTH TWICE DAILY FOR BLOOD PRESSURE/HEART Rx# [id number] Last Released: 07/02/23 Qty/Days Supply: 180 Rx Expiration Date: 06/11/24 Refills Remainin OUTPT METOPROLOL TARTRATE 25MG TAB (Status = Discontinued) TAKE ONE-FOURTH TABLET BY MOUTH TWICE DAILY FOR BLOOD PRESSURE/HEART Rx# [id number] Last Released: 10/16/23 Qty/Days Supply: 45/ Rx Expiration Date: 01/14/24 Refills Remainin Indication: FOR MYOCARDIAL REINFARCTION PREVENTION OUTPT METOPROLOL TARTRATE 25MG TAB (Status = On Hold) TAKE ONE-HALF TABLET BY MOUTH TWICE DAILY FOR BLOOD PRESSURE/HEART Rx# [id number] Last Released: QtyDays Supply: Rx Expiration Date: 10/22/24 Refills Remainin Indication: FOR MYOCARDIAL REINFARCTION PREVENTION OUTPT MULTIVIT/OPHTH AREDS2/LUTE/ZEAX CAP/TAB (Status = Active) TAKE 1 CAPSULE BY MOUTH TWICE DAILY IN THE MORNING AND EVENING, WITH FOOD Rx# [id number] Last Released: 10/31/23 Qty/Days Supply: 120/60 Rx Expiration Date: 05/22/24 Refills Remainin OUTPT NALOXONE HCL 4MG/SPRAY SOLN NASAL SPRAY (Status = Active) INSTILL 1 SPRAY ONE NOSTRIL ONE TIME NEEDED FOR OPIOID OVERDOSE CALL 911 WITH ADMINISTRATION. REPEAT WITH SECOND DEVICE IF SYMPTOMS RETURN Rx# [id number] Last Released: 10/12/23 Qty/Days Supply: Rx Expiration Date: 01/06/24 Refills Remainin Indication: FOR OPIOID OVERDOSE Non-VA OTHER CAP/TAB FISH OIL, 1000MG po EVERY DAY Patient wants to buy from Non-VA pharmacy. OUTPT SERTRALINE HCL 100MG TAB (Status = Active/Suspended) TAKE ONE TABLET BY MOUTH TWICE DAILY Rx# [id number] Last Released: 11/14/23 Qty/Days Supply: 180/ Rx Expiration Date: 06/11/24 Refills Remainin OUTPT TAMSULOSIN HCL 0.4MG CAP (Status = Active) TAKE ONE CAPSULE BY MOUTH ONCE DAILY FOR ENLARGED PROSTATE Rx# [id number] Last Released: 10/11/23 Qty/Days Supply: Rx Expiration Date: 10/08/24 Refills Remainin Indication: FOR ENLARGED PROSTATE OUTPT ZOLPIDEM TARTRATE 10MG TAB (Status = Discontinued) TAKE ONE TABLET BY MOUTH BEDTIME NEEDED FOR SLEEP Rx# [id number] Last Released: 08/27/23 Qty/Days Supply: Rx Expiration Date: 09/21/23 Refills Remainin Indication: FOR SLEEP OUTPT ZOLPIDEM TARTRATE 10MG TAB (Status = Discontinued) TAKE ONE TABLET BY MOUTH BEDTIME NEEDED FOR SLEEP Rx# [id number] Last Released: 09/25/23 Qty/Days Supply: Rx Expiration Date: 10/24/23 Refills Remainin Indication: FOR SLEEP OUTPT ZOLPIDEM TARTRATE 5MG TAB (Status = ) TAKE ONE TABLET BY MOUTH AT BEDTIME NEEDED FOR SLEEP Rx# [id number] Last Released: 10/29/23 Qty/Days Supply: Rx Expiration Date: 11/22/23 Refills Remainin Indication: FOR SLEEP -------- SUPPLIES -------- OUTPT ACCU-CHEK GUIDE (GLUCOSE) TEST STRIP (Status = Active) USE 1 STRIP TO TEST BLOOD SUGARS FOUR TIMES A DAY Rx# [id number] Last Released: 09/24/23 Qty/Days Supply: Rx Expiration Date: 05/09/24 Refills Remainin OUTPT ACCU-CHEK GUIDE ME (GLUCOSE) METER (Status = Active) USE METER TO TEST BLOOD SUGARS FOUR TIMES A DAY Rx# [id number] Last Released: 06/15/23 Qty/Days Supply: Rx Expiration Date: 06/11/24 Refills Remainin OUTPT GLUCOSE SENSOR FREESTYLE FELICIANO 3 (Status = Active) USE 1 SENSOR DIRECTED EVERY 14 DAYS Rx# [id number] Last Released: 11/19/23 Qty/Days Supply: 05/09 Rx Expiration Date: 10/18/24 Refills Remainin OUTPT LANCET,SOFTCLIX (Status = Active) USE 1 LANCET DIRECTED FOUR TIMES A DAY TO TEST BLOOD SUGAR Rx# [id number] Last Released: 06/13/23 Qty/Days Supply: 90 Rx Expiration Date: 06/11/24 Refills Remainin OUTPT TABLET CUTTER (PILL SPLITTER) (Status = Active) USE CUTTER DIRECTED BY PROVIDER TO SPLIT TABLETS Rx# [id number] Last Released: 10/16/23 Qty/Days Supply: Rx Expiration Date: 01/14/24 Refills Remainin /devon/ ANUPAMA COONEY OD Personal Lines Sales Executive Signed: 11/28/2023 15:08 ANUPAMA COONEY [facility]
--- OUTSIDE RECORDS SUMMARY | 2024-07-29 15:09 | XMS_ITS ---
[facility] Address [address] [place] [address] Care Team Providers Care Prism Measurer Name Role Phone Litzy DUMONT, William Primary Care Provider Hortensia Osborne Unavailable [phone] Allergies Allergen (clinical drug ingredient) Drug/Non Drug [...] Thre e times a day Not-Taking Zenpep 38318 UNIT as directed Orally Not-Taking Tamsulosin HCl [...] Active Insulin Active Vitamin D Active Creon 54854-63005 UNIT Orally Active Sertraline HCl 100 MG [...] Ordered Date Performed Result Body Sit e 54337-POEG SKIN LESIONS, 2 TO 4 01/02/2024 N/A E7448-[id number] DYSTROPHIC NAILS ANY # 01/02/2024 N/A Encounters Encounter Location Date Provider Diagnosis [facility] [place] [address] [address] [facility] [place] [address] 01/02/2024 Hortensia Sparrow Type 2 diabetes katty itus with diabetic polyneuropathy E11.42 Assessments Encounter Date Diagnosis (ICD Code) Assessment Notes Treatment Notes Treatment Clinical Notes Section Notes 01/02/2024 Type 2 diabetes mellitus with diabetic polyneuropathy (ICD-10 - E11.42) Plan Of Treatment Pending Test Test Name Order Date 56564-EOKN SKIN LESIONS, 2 TO 4 01/02/20 24 I5525-IWXDTHUE DYSTROPHIC NAILS ANY # Next Appt Details Follow Up: prn, Reason: Provider Name:Hortensia Sparrow , 08/05/2024 11:15:00 AM, [facility] [address], [address], Provider Name:Hortensia Sparrow , 10/07/2024 11:15:00 AM, [facility], [address], Procedure Notes * Category Sub-Category Detail Notes Keratoma Treatment Parring or Cutting o f Benign Hyperkeratotic Lesion(s) 15896 (2-4 Lesions) - The Benign hyperkeratotic lesions, [...] Notes * Damien TURPIN:1940 (83 yo M)Acc No.[id number]:01/02/2024 Progress Note Patient:Tay Thomas Provider:?Hortensia Sparrow DPM :1940???Age:83 Y???Sex:Male Max e:01/02/2024 Address:[address] [place], [place] [address] Pcp:William Mcghee MD Subjective: * Chief Complaints: [...] yes, walking. ?Marital status: . 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 * Medications:?TakingMetoprolo l Tartrate 25 MG Tablet 1 tablet with food Orally Twice a daySertraline HCl 100 MG Tablet 1 tablet Orally Creon 34639-48147 UNIT Capsule Delayed Release Particles Orally Multivitamin [...] MG Tablet 1 tablet Orally Taking Creon 06642-86143 UNIT Capsule Delayed Release Particles Orally Taking [...] Deformity (M20.41,M20.42), Preulcerative Skin Lesion(s) (L85.1Probiotic Zenpep 49887 UNIT Capsule Delayed Release Particles as directed [...] Preulcerative Skin Lesion(s) (L85.1Not-Taking/PRN Probiotic Not-Taking/PRN Zenpep 55534 UNIT Capsule Delayed Release Particles as directed [...] Procedures:?Keratoma Treatment:?Parring or Cutting of Benign Hyperkeratotic Lesion(s)?73613 (2-4 Lesions) - The Benign hyperkeratotic lesions, as described above were pared, and/or cut utilizing a sterile #15 blade, tissue nippers, and/or dremel.?Nail Reduction:?Nail Reduction?Trimming of dystrophic nails performed to reduce/remove overall nail length and girth, by manual and electrical means with use of a nail nipper and/or dremel, to more viable healthy nail plate or bed tissue 6-10 (G0127).? * Procedure Codes:?24500 TRIM SKIN LESIONS, 2 TO 4, Modifiers: XS G0127 TRIMMING DYSTROPHIC NAILS ANY #, Modifiers: XS * Follow Up:?prn * Images: * Sign off status: Completed true * Provider:Russ Sparrow DPM Date:?2023 Generated for David browning/Alley/eTransmitting on:?07/29/2024 03:09 PM EDT History and Physical Notes * [...]
--- OUTSIDE RECORDS SUMMARY | 2024-07-29 15:09 | XMS_ITS | Encounter Summary ---
Author Name [facility] [place] [facility] [place] [facility] [facility] [place] Address [address] [place] [address] Care Team Providers Care Spiral Binder Name Role Phone BONITA HELMS Primary Care [...] [facility] MED[facility] SUPPLEMEN MEGHANA MEDEX ANDRY E Mar 12, 2016 [id number] PRIYANK ELIZABETH SEPH PATIENT MEDICARE (WNR) MEDICARE (M) PART B May 10, 2004 PART B [id number] PRIYANK ELIZABETH SEPH PATIENT MEDICARE (WNR) MEDICARE (M) PART B May 10, 2004 PART B [id number] PRIYANK ELIZABETH SEPH PATIENT MEDICARE (WNR) MEDICARE (M) PART A July 10, 1997 PART A [id number] PRIYANK ELIZABETH SEPH PATIENT MEDICARE (WNR) MEDICARE (M) PART A July 10, 1997 PART A [id number] PRIYANK ELIZABETH SEPH PATIENT Selected Encounter This section includes the information on record at [place] for the Encounter. Date/Time Encounter Type Encounter Description Reason Provider Source Feb 26, 2024 08:20 AM Q[facility] OL DIG ASSMT&MGMT 21+ [facility] - CLINICAL PHARMACIST ICD-10-CM Z79.899 Other prison (current) drug therapy CELE VELÁZQUEZ E Encounter Template Text not used by [place] Assessments - Encounter Diagnoses This section includes the primary and secondary diagnoses documented for the Encounter. Date/Time Primary/Secondary Diagnosis Diagnosis Name Provider Source Feb 26, 2024 02:30 PM PRIMARY Other superintendent terminal (current) drug therapy CELE VELÁZQUEZ [facility] Plan of Treatment: Future Appointments (+ 6 months) and Future Tests (+/- 45 days) The Plan of Treatment section includes future care activities for the patient from all [place] treatmentfacilities. This section includes future appointments and future orders which are active, pending or scheduled. Future Appointments This section includes appointments that were scheduled to occur 6 months from the date of the Encounter, up to a maximum of 20 appointments. The data comes from all [place] treatment facilities. Appointment Date/Time Appointment Type Appointme nt Facility Name Feb 29, 2024 11:00 AM AMBULATORY - REHAB MED[facility]IN [facility] Mar 17, 2024 11:00 AM AM[place]ULAT[place] [facility] [place] [facility] Apr 11, 2024 01:00 PM AMBULATORY - RE[facility] May 06, 2024 10:30 AM AMBULAT[place] - [place] [facility] [place] [facility] May 22, 2024 11:30 AM AMBULATORY - MEDICINE [facility] [place] [facility] Jul 08, 2024 01:00 PM AMBULATORY - [facility]RY [facility] July 23, 2024 11:00 AM AMBULATORY - MEDICINE [facility] [place] [place] [facility] August 08, 2024 11:00 [facility] Results: +/- 30 days of the encounter This section includes the Chemistry and Hematology Lab Results on record with [place] for the patient. Radiology Reports and Pathology Reports are provided separately, in subsequent sections. Lab Results This section contains the Chemistry/Hematology Results that were resulted 30 days before or 30 daysafter the date of the Encounter. Date/Time Source Result Type Result - Unit Interpretation Reference Range Specimen Type Comment Mar 17, 2024 11:31 AM [facility] FERRITIN SERUM Specimen Type: SERUM No comment entered. Ordering Provider: YENI PUENTES Report Released Date/Time: Jun 11, 2023 11:06 AM Reporting [facility] [address] [address] Performing Lab: [address] [address] FERRITIN 57 ng/mL 20-300 Mar 17, 2024 11:31 AM [facility] TSH SERUM Sp ecimen Type: SERUM No comment entered. Ordering Provider: YENI PUENTES Report Released Date/Time: Jun 11, 2023 11:06 AM Reporting Lab[facility] [address] [address] Performing Lab: [address] [address] TSH 3.25 u[IU]/mL 0.35-5.00 Mar 17, 2024 11:31 AM [facility] HEMOGLOBIN A1C PANEL BLOOD Specimen T ype: BLOOD Comment: Values obtained from A1C measurements can vary. For atypical A1C assays, a reported value of 7.0 could actually be between 6.72 and 7.28 if measured by a reference method. A reported value of 9.0 could actually be between 8.73 and 9.27. Ref: http://www.ngsp.org/CAPdata.asp Ordering Provider: YENI PUETNES Report Released Date/Time: Jun 11, 2023 11:06 AM Reporting Lab[facility] [address] [address] Performing Lab: [address] [address] HEMOGLOBIN A1C 7.4 H 4.0-5.6 Mar 17, 2024 11:31 AM [facility] VITAMIN B12 SERUM Specimen Type: SERUM No comment entered. Ordering Provider: YENI PUENTES Report Released Date/Time: Jun 11, 2023 11:06 AM Reporting Lab: [facility] [address] [address] Performing Lab: [facility] [address] [facility] [address] VITAMIN B12 512 pg/mL 200-900 Mar 17, 2024 11:31 AM [facility] MICROALBUMIN CREATININE RATIO PANEL URINE Specimen Type: URINE No comment entered. Ordering Provider: YENI PUENTES Report Released Date/Time: Jun 11, 2023 11:06 AM Reporting Lab: [facility] [address] [address] Performing Lab: [facility]ITALUSE[address] [address] MICROALBUMIN/CREATININE RATIO 155.3 mg/g H 0-29.9 MICROALBUMIN,QUANTITATIVE 41.2 mg/dL RR UNAVAIL CREATININE URINE 265.23 mg/dL Mar 17, 2024 11:31 AM [facility] CALCIUM SERUM Sp ecimen Type: SERUM No comment entered. Ordering Provider: YENI PUENTES Report Released Date/Time: Jun 11, 2023 11:06 AM Reporting Lab: [facility] [address] [facility] [address] Performing Lab: [facility]ITALUSETS [address] [address] CALCIUM 9.3 mg/dL 8.5-10.2 Mar 17, 2024 11:31 AM [facility] URINALYSIS URINE S pecimen Type: URINE Comment: If Glucose = >500 and Ketones are positive, please alert the Physician. Ordering Provider: YENI PUENTES Report Released Date/Time: Jun 11, 2023 11:06 AM Reporting Lab: [facility] [address] Performing Lab: [facility] [address] UA COLOR Yellow Yellow UA APPEARANCE Turbid Clear UA GLUCOSE Normal mg/dL Negative UA KETONES TRACE mg/dL Negative UA BLOOD NEGATIVE mg/dL Negative UA PROTEIN 70 mg/dL Negative UA NITRITE NEGATIVE mg/dL Negative UA BILIRUBIN NEGATIVE mg/dL Negative UA SPECIFIC GRAVITY 1.022 1.016-1.022 UA pH 5.5 5.0-9.0 UA UROBILINOGEN Normal mg/dL <2.0 UA LEUKOCYTE TRACE Negative Mar 17, 2024 11:31 AM [facility] LIPID PANEL FASTING SERUM Specimen Ty pe: SERUM No comment entered. Ordering Provider: YENI PUENTES Report Released Date/Time: Jun 11, 2023 11:06 AM Reporting Lab: [facility] [address] [address] Performing Lab: [address] [address] CHOLESTEROL 113 mg/dL TRIGLYCERIDE 141 mg/dL 0-150 LDL calculated 57 mg/dL 0-129 CHOL/HDL 4.0 HDL CHOLESTEROL 28 mg/dL L 40-60 Mar 17, 2024 11:31 AM [facility] LIVER FUNCTION SERUM Specimen Type: SERUM No comment entered. Ordering Provider: YENI PUENTES Report Released Date/Time: Jun 11, 2023 11:06 AM Reporting Lab: [facility] [address] [address] Performing Lab: [address] [address] PROTEIN,TOTAL 7.2 g/dL 6.0-8.3 ALBUMIN 3.9 g/dL 3.5-5.0 ALKALINE PHOSPHATASE 86 U/L 40-150 AST 44 U/L H 5-34 ALT 28 U/L BILIRUBIN, TOTAL 0.4 mg/dL 0.2-1.2 Mar 17, 2024 11:31 AM [facility] URIC ACID SERUM Sp ecimen Type: SERUM No comment entered. Ordering Provider: YENI PUENTES Report Released Date/Time: Jun 11, 2023 11:06 AM Reporting Lab: [facility] [address] [address] Performing Lab: [address] [address] URIC ACID 6.4 mg/dL 3.5-7.2 Mar 17, 2024 11:31 AM [facility] BASIC METABOLIC PANEL (fasting) SERUM Specimen Type: SERUM No comment entered. Ordering Provider: YENI PUENTES Report Released Date/Time: Jun 11, 2023 11:06 AM Reporting Lab: [address] [address] Performing Lab: [address] [address] UREA NITROGEN 39 mg/dL H 7-25 GLUCOSE 121 mg/dL H 65-100 SODIUM 139 mmol/L 135-145 POTASSIUM 4.2 mmol/L 3.5-5.0 CHLORIDE 102 mmol/L 100-110 CO2 28 meq/L 20-30 CREATININE, Serum 1.83 mg/dL H 0.50-1.40 eGFR(CKD-EPI 2020) 36 mL/min L >60 Mar 17, 2024 11:31 AM [facility] VITAMIN D (25-OH) SERUM Specimen Type: SERUM No comment entered. Ordering Provider: YENI PUENTES Report Released Date/Time: Jun 11, 2023 11:06 AM Reporting Lab: [address] [address] Performing Lab: [address] [address] VITAMIN D (25-OH) 26 ng/mL 20-50 Mar 17, 2024 11:31 AM [facility] MICROSCOPIC AUTOMATED, URINE URINE Sp ecimen Type: URINE Comment: If Glucose = >500 and Ketones are positive, please alert the Physician. Ordering Provider: YENI PUENTES Report Released Date/Time: Jun 11, 2023 11:06 AM Reporting Lab: [address] [address] Performing Lab: [address] [address] UA WBC 0-5 /[HPF] 0-5 UA MUCUS MODERATE /[LPF] Trace UA HYALINE CASTS 5-9 /[LPF] H 0-2 UA RBC 0-2 /[HPF] 0-3 UA SQUAMOUS EPITH FEW /[HPF] Mar 17, 2024 11:31 AM [facility] CBC AND DIFF (AUTO) BLOOD Specimen Ty pe: BLOOD No comment entered. Ordering Provider: YENI PUENTES Report Released Date/Time: Jun 11, 2023 11:06 AM Reporting Lab: [facility] [address] [facility] [address] Performing Lab: [facility]ITALTRN [facility]ITALUS[facility] [address] [facility] [address] WBC 6.12 10*3/uL 4.50-11.00 RBC 4.58 10*6/uL [...] and tobacco- related health factors from the [place] facility where the Encounter took place. Current Smoking Status This section includes the most current smoking, or tobacco-related health factor, from the [place] facility where the Encounter took place. Date/Time Current Smoking Status Comment Kathy unger Mar 24, 2022 10:01 AM VA-TOBACCO NEVER USED [facility] Advance Directives: All historical and current Section Date Range: From patient's date of to the date document was created. This section includes ALL of a patient's completed or amended [place] Advance and Rescinded Directives. The entries below indicate that a directive exists for the patient, but an actual copy is not included with this document. The data comes from all [place] facilities. Date Advance Directives Provider Source Jun [...] 90 days: - No hospitalizations/infections noted - Boomer sustained a fall ~01/15/24 (see #3 below [...] use may increase risk of respiratory and STOP ATTACHER depression; recommend limiting use of zolpidem with [...] prostate cancer - diagnosed 2021, followed by non-[place] Urology; s/p TURP, under surveillance (cystoscopy every 6 months); PET scan was recently ordered given concern for metastasis of bladder cancer based on findings from pelvic CT scan - was recommended to f/u with Urology * T1DM - hx of total pancreatectomy, on insulin pump (insulin aspart) currently followed by non-[place] Endo with support from [facility] IDT, SMBG using CGM ([facility] [place] Cindi 3), receives steroid injections every 3 [...] remote history of significantly elevated TG (in [id number]) 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 Adherence Concerns: no concerns at this time - manages his own medications 7. 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 * This administrative underwriter added naloxone to 's non-VA medication list [...] Time Spent: 60 min /devon/ CELE VELÁZQUEZ [facility] Clinical Pharmacist Practitioner Signed: 02/26/2024 14:44 Receipt Acknowledged By: 02/26/2024 17:38 /es/ BONITA HELMS [facility] NURSE PRACTITIONER 02/27/2024 16:43 /devon/ Paola Hudson RN [facility] academic registrar CELE VELÁZQUEZ [facility]
--- OUTSIDE RECORDS SUMMARY | 2024-07-29 15:09 | XMS_ITS ---
Author Name [facility] [facility] [place] [facility] [place] Address [address] [place] [address] Care Team Providers Care Muck Miner Name Role Phone BONITA HELMS Primary Care [...] [facility] MEDICARE SUPPLEMEN MEGHANA MEDEX ANDRY E Mar 12, 2016 [id number] PRIYANK TURPIN SEPH PATIENT MEDICARE (WNR) MEDICARE (M) PART B May 10, 2004 PART B [id number] PRIYANK TURPIN SEPH PATIENT MEDICARE (WNR) MEDICARE (M) PART B May 10, 2004 PART B [id number] [phone] PRIYANK TURPIN SEPH PATIENT MEDICARE (WNR) MEDICARE (M) PART A July 10, 1997 PART A [id number] PRIYANK TURPIN PATIENT MEDICARE (WNR) MEDICARE (M) PART A July 10, 1997 PART A [id number] [facility] PRIYANK TURPIN PATIENT Selected Encounter This section includes the information on record at [place] for the Encounter. Date/Time Encounter Type Encounter Description Reason Provider Source Jun 09, 2024 11:15 AM Outpatient Encounter [facility] ADV PRAC PROV(RAILWAY SIGNAL OPERATOR,AMMONIA DISTILLER,PA) ICD-10-CM G89.29 Other chronic pain TOREY-Kenn [facility] Encounter Template Text not used by [place] Assessments - Encounter Diagnoses This section includes the primary and secondary diagnoses documented for the Encounter. Date/Time Primary/Secondary Diagnosis Diagnosis Name Provider Source July 14, 2024 10:31 AM PRIMARY Other chronic pain Kenn HOLLISWILexii [facility] July 14, 2024 10:31 AM SECONDARY Anxiety disorder, unspecified Kenn HOLLIS YNTWIA [place] [facility] [place] [facility] July 14, 2024 10:31 AM SECONDARY Unilateral primary osteoarthritis, left knee Kenn HOLLIS YVIDHYAWIA [facility] [place] [facility] Plan of Treatment: Future Appointments (+ [...] 08, 2024 01:00 PM AMBULATORY - PSYCHIATRY [facility] July 23, 2024 11:00 AM AMBULATORY - MEDICINE [facility] NTRL [facility] [place] [facility] August 08, 2024 11:00 AM AMBULATORY - REHAB [facility]IC[facility] [place] Sep 03, 2024 12:30 PM AMBULATORY - MEDICINE [facility] NTRL [facility] [place] [facility] Active, Pending, and Scheduled Orders This section includes a listing of several types of active, pending, and scheduled orders, including clinic medications orders, diagnostic test orders, procedure orders and consult orders; where the start date of the order is 45 days before the date of the Encounter or 45 days after the date of theEncounter. The data comes from all [place] treatment facilities. Test Date/Time Test Type Test Details Facility Name Jun 03, 2024 10:59 AM Consult Order [facility]-ENDOCRINE Cons Director Of Nurses Registry's Choice [facility] Jul 04, 2024 12:00 AM Laboratory - Chemistry Order ALCOHOL, ETHYL URINE PANEL URINE (DRUG) [facility] Jul 04, 2024 12:00 AM Laboratory - Chemistry Order AMPHETAMINES SCREEN PANEL URINE (DRUG) [facility] Jul 04, 2024 12:00 AM Laboratory - Chemistry Order FENTANYL SCREEN PANEL URINE (DRUG) [facility] Jul 04, 2024 12:00 AM Laboratory - Chemistry Order BENZODIAZEPINES SCREEN PANEL URINE (DRUG) [facility] Jul 04, 2024 12:00 AM Laboratory - Chemistry Order BUPRENORPHINE SCREEN PANEL URINE (DRUG) [facility] Jul 04, 2024 12:00 AM Laboratory - Chemistry Order CANNABINOIDS SCREEN PANEL URINE (DRUG) [facility] Jul 04, 2024 12:00 AM Laboratory - Chemistry Order COCAINE SCREEN PANEL URINE (DRUG) [facility] Jul 04, 2024 12:00 AM Laboratory - Chemistry Order OPIATES SCREEN PANEL URINE (DRUG) [facility] Jul 04, 2024 12:00 AM Laboratory - Chemistry Order OXYCODONE SCREEN PANEL URINE (DRUG) [facility] Jul 04, 2024 12:00 AM Laboratory - Chemistry Order METHADONE SCREEN (CH) URINE (DRUG) [facility] Social History: Smoking Status (Most current) [...] Facil ity Mar 24, 2022 10:01 AM RI-TOBACCO NEVER USED [place] CNTR[facility] [place] [facility] Advance Directives: All historical and current Section Date Range: From patient's date of to the date document was created. This section includes ALL of a patient's completed or amended [place] Advance and Rescinded Directives. The entries below indicate that a directive exists for the patient, but an actual copy is not included with this document. The data comes from all [place] facilities. Date Advance Directives Provider Source Jun 28, 2009 ADVANCE DIRECTIVE MANUELITO MORELOS Encounter Notes: All associated encounter notes This section contains the clinical notes associated to the Encounter. Date/Time Encounter Note(s) Provider Source Jun 10, 2024 09:48 AM ADDENDUM: LOCAL TITLE: Addendum STANDARD TITLE: ADDENDUM DATE OF NOTE: JUN 10, 2024@09:48:15 ENTRY DATE: JUN 10, 2024@09:48:16 AUTHOR: JACKI MANCILLA COSIGNER: URGENCY: STATUS: COMPLETED FYI Ms Trinidad /devon/ Jacki Mancilla RN BSN HB FIRE INVESTIGATOR Signed: 06/10/2024 09:48 Receipt Acknowledged By: 06/10/2024 19:40 /devon/ Dalton Trinidad RN HB combination machine tool setter --- Original Document --- 06/09/24 [facility] RATE INSERTER PROGRESS NOTE: was seen for: ( )routine visit (x) problem visit Identified by name, , address and facial recognition: Y VV Ready: Yes [x] No [ ] Chief complaint:Pt is a 84 seen for follow up of medical problems as noted below. [phone] HPI:84 yo M seen for pain evaluation accompanied by . He has been on hydrocodone w subopimal pain relief. takes zoloft for stress , losses patience at times constant pain to LLE VAS 6/10-10/10 Previously [place] to b/l shoulders which elevates glucose, does not want to persue cardiology: [facility] PMH: Active problems - Computerized Problem [...] Generalized anxiety disorder 17. 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 SENSORNEUR HEAR LOSS NOS subjective tinnitus 24. Gastroesophageal Reflux Disorder no hx of ulcer, gi bleed or scope. 25. Hypertension (SNOMED CT 97088662) +Renal Cysts Bilat (US OCT 16); refer URO to R/O RCC Post-Op Dx of Left Renal Mass was Neg [place] (Surg FEB 15, [facility] Proteinuria; saw private Nephro APR 22, Dr Souza [phone] 26. Depressive Disorder NOS 27. 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 /devon/ MARY HOLLIS RN,MSN,DIGITAL MEDIA INTERN-C [facility] NURSE PRACTITIONER Signed: 06/09/2024 15:50 06/09/2024 ADDENDUM [...] LUTS, urinary retention given nocuria 3-4x nightly /devon/ MARY HOLLIS RN,MSN,DIGITAL MEDIA INTERN-C [facility] NURSE PRACTITIONER Signed: 06/09/2024 15:52 Receipt Acknowledged By: 06/10/2024 15:59 /devon/ BONITA HELMS [facility] NURSE PRACTITIONER 06/09/2024 17:06 /es/ Jacki Mancilla CELL TENDER HELPER [facility] FIRE INVESTIGATOR for DALTON TRINIDAD CROW,JOANNE [place] CNTR[facility] [place] [facility] Jun 09, 2024 03:50 PM ADDENDUM: LOCAL [...] given nocuria 3-4x nightly /es/ MARY HOLLIS RN,MSN,DIGITAL MEDIA INTERN-C [facility] NURSE PRACTITIONER Signed: 06/09/2024 15:52 Receipt Acknowledged By: 06/10/2024 15:59 /es/ BONITA HELMS [facility] NURSE PRACTITIONER 06/09/2024 17:06 /es/ Jacki Mancilla CELL TENDER HELPER [facility] FIRE INVESTIGATOR for DALTON TRINIDAD --- Original Document --- 06/09/24 [facility] RATE INSERTER PROGRESS NOTE: was seen for: ( )routine visit (x) problem visit Identified by name, , address and facial recognition: Y [facility] Ready: Yes [x] No [ ] Chief complaint:Pt is a 84 seen for follow up of medical problems as noted below. [phone] HPI:84 yo M seen for pain evaluation accompanied by . He has been on hydrocodone w subopimal pain relief. takes zoloft for stress , losses patience at times constant pain to LLE VAS 6/10-10/10 Previously went [place] to b/l shoulders which elevates glucose, does not want to persue cardiology: [facility] PMH: Active problems - Computerized Problem [...] Generalized anxiety disorder 17. 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 SENSORNEUR HEAR LOSS NOS subjective tinnitus 24. Gastroesophageal Reflux Disorder no hx of ulcer, gi bleed or scope. 25. Hypertension (SNOMED CT 39647275) +Renal Cysts Bilat (US OCT 16); refer URO to R/O RCC Post-Op Dx of Left Renal Mass was Neg [place] (Surg FEB 15, [facility] Proteinuria; saw private Nephro APR 22, Dr Souza [phone] 26. Depressive Disorder NOS 27. Diabetes mellitus (SNOMED CT 30053940) no DR per retinal exam on AUGUST [...] cuff repairs CABGx3 bilat inguinal hernia repair, 2013 pancreatic debridement, biliary bypass bladder cancer 03/24/21 Dr. 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 /devon/ MARY HOLLIS RN,MSN,DIGITAL MEDIA INTERN-C [facility] NURSE PRACTITIONER Signed: 06/09/2024 15:50 06/10/2024 ADDENDUM STATUS: COMPLETED FY Ms Trinidad /devon/ Jacki Mancilla CELL TENDER HELPER [facility] FIRE INVESTIGATOR Signed: 06/10/2024 09:48 Receipt Acknowledged By: * AWAITING SIGNATURE * DALTON TRINIDAD CYNT WILexii [place] CNTRL [facility] [place] [facility] Jun 09, 2024 11:15 AM [facility] NOTE: LOCAL TITLE: [facility] RATE INSERTER PROGRESS NOTE STANDARD TITLE: [facility] NOTE DATE OF NOTE: JUN 09, 2024@11:15 ENTRY DATE: JUN 09, 2024@11:15:29 AUTHOR: DILLON HOLLIS EXP COSIGNER: URGENCY: STATUS: COMPLETED SUBJECT: pain evaluation [facility] RATE INSERTER PROGRESS NOTE Has ADDENDA [place] was seen for: ( )routine visit (x) problem visit Identified by name, , address and facial recognition: Y [facility] Ready: Yes [x] No [ ] Chief complaint:Pt is a 84 seen for follow up of medical problems as noted below. [phone] HPI:84 yo M seen for pain evaluation accompanied by . He has been on hydrocodone w subopimal pain relief. takes zoloft for stress , losses patience at times constant pain to LLE VAS 6/10-10/10 Previously went to [place] [facility] for injections to b/l shoulders which elevates glucose, does not want to persue cardiology: [facility] cardiology PMH: Active problems - Computerized Problem [...] Generalized anxiety disorder 17. 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 SENSORNEUR HEAR LOSS NOS subjective tinnitus 24. Gastroesophageal Reflux Disorder no hx of ulcer, gi bleed or scope. 25. Hypertension (SNOMED CT 32615534) +Renal Cysts Bilat (US OCT 16); refer URO to R/O RCC Post-Op Dx of Left Renal Mass was Neg [place] (Surg FEB 15, [facility] Proteinuria; saw private Nephro APR 22, Dr Souza [phone] 26. Depressive Disorder NOS 27. Diabetes mellitus (SNOMED CT 03687161) no DR per retinal exam on AUGUST [...] cuff repairs CABGx3 bilat inguinal hernia repair, 2013 pancreatic debridement, biliary bypass bladder cancer 03/24/21 Dr. 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 /devon/ MARY HOLLIS RN,MSN,DIGITAL MEDIA INTERN-C [facility] NURSE PRACTITIONER Signed: 06/09/2024 15:50 06/09/2024 ADDENDUM [...] given nocuria 3-4x nightly /es/ MARY HOLLIS RN,MSN,DIGITAL MEDIA INTERN-C [facility] NURSE PRACTITIONER Signed: 06/09/2024 15:52 Receipt Acknowledged By: * AWAITING SIGNATURE * BONITA HELMS 06/09/2024 17:06 /es/ Jacki Mancilla CELL TENDER HELPER [facility] FIRE INVESTIGATOR for DALTON TRINIDAD 06/10/2024 ADDENDUM STATUS: COMPLETED FYI Ms Trinidad /es/ Jacki Mancilla CELL TENDER HELPER [facility] FIRE INVESTIGATOR Signed: 06/10/2024 09:48 Receipt Acknowledged By: * AWAITING SIGNATURE * DALTON TRINIDAD CYNT HIA [place] [facility]
--- OUTSIDE RECORDS SUMMARY | 2024-07-29 15:09 | XMS_ITS | Clinical Summary ---
Author Organization [facility] Address [address] [place] [address] Phone Care Team Providers Care Clinical Office Technician Name Role Phone William Mcghee DO Primary Care Provider [phone] Allergies Active Allergy Reactions Criticality Noted Date [...] 2 (two) times a day Active pancrelipase, Qur-Wuan-Zjqa, (Creon) 52094-26720 units capsule Take 3 capsules by mouth [...] 06/13/2013 12/07/2020 Overview (12/07/2020): Diabetes mellitus Immunizations Immunization Administration Dates Next Due Influenza (IM) Preservative [...] Comments Diabetes: Hemoglobin A1C 06/06/2021 09/07/2020 Diabetes: Pedal Pulse Checked 06/06/2021 Diabetes: Sensory Foot Exam 06/06/2021 Diabetes: Visual Foot Exam 06/06/2021 Diabetes: Ophthalmology Exam 11/27/2024 11/28/2023 Pneumococcal Vaccine: 50+ Years Completed 06/17/2015, 09/11/2013, 03/12/2009 Pneumococcal Vaccine: Peds (0 to 5 Years) and At-Risk Patients (6 to 49 Years) Discontinued 06/17/2015, 09/11/2013, 03/12/2009 Influenza Vaccine Completed 11/22/2023, , 11/20/2021, Additional history exists Hepatitis B Vaccine Aged Out No longe [...] 8.9 8.7 - 10.7 mg/dL eGFR Non-Afr Nauruan 58 Uric Acid 5.2 MG/DL Hemoglobin A1C 9.2(A) 4.0 - 6.0 Alb/Creat Ratio, Ur 136.6 mg/g Creat Triglycerides 149 40 - 160 Cholesterol 139 0 - 200 HDL 29(A) 35 - 70 MG/DL LDL Calculated 80 0 - 160 mg/dL 09/07/2020 Historical Provider LAB BLOOD ORDERABLES Janet l Result from Last 3 Months or Most Recently Relevant to Health Maintenance Insurance [facility] Medicare [facility] Medicare Care Teams Clinical Office Technician Relationship Specialty Start Date End Date William Mcghee DO NPI: [id number] [place] [address] PCP - General 03/22/20
--- OUTSIDE RECORDS SUMMARY | 2024-07-29 15:09 | XMS_ITS | Encounter Summary ---
Author Name [facility] [place] [facility] [place] Organization [facility] [place] Address [address] [place] [address] Care Team Providers Care Direct Casting Operator Name Role Phone BONITA HELMS Primary [...] Relationship to Policy Mueller [facility] MEDICARE SUPPLEMEN MEGHANA MEDEX ANDRY Jarrett Mar 12, 2016 [id number] PRIYANK TURPIN SEPH PATIENT MEDICARE (WNR) MEDICARE (M) PART B May 10, 2004 PART B [id number] [id number] PRIYANK TURPIN SEPH PATIENT MEDICARE (WNR) MEDICARE (M) PART B May 10, 2004 PART B [id number] PRIYANK TURPIN SEPH PATIENT MEDICARE (WNR) MEDICARE (M) PART A July 10, 1997 PART A [id number] [id number] PRIYANK TURPIN SEPH PATIENT MEDICARE (WNR) MEDICARE (M) PART A July 10, 1997 PART A [id number] PAPIPRIYANK HARJINDER PATIENT Selected Encounter This section includes the information on record at [place] for the Encounter. Date/Time Encounter Type Encounter Description Reason Pro vider Source IHE Encounter Template Text not used by [place] Advance Directives: All historical and current Section Date Range: From patient's date of to the date document was created. This section includes ALL of a patient's completed or amended [place] Advance and Rescinded Directives. The entries below indicate that a directive exists for the patient, but an actual copy is not included with this document. The data comes from all [place] facilities. Date Advance Directives Provider Source Jun 28, 2009 ADVANCE DIRECTIVE MANUELITO MORELOS
--- OUTSIDE RECORDS SUMMARY | 2024-07-29 15:09 | XMS_ITS | Clinical Summary ---
Author Organization [address] [facility] Address [address] [place] [phone] Phone Care Team Providers Care Sliver Lap Tender Name Role Phone William Mcghee DO Primary Care Provider [phone] Allergies Active Allergy Reactions Criticality Noted Date [...] capsule Take by mouth. 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 Orders: ECG 12 lead Hearing loss 04/09/2018 Overview (03/11/2024): Bilateral hearing aids Hypertension 04/09/2018 Assessment & Plan (05/12/2024 11:04 AM EST): Well-controlled on medical therapy. 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 (Primary Dx); Primary hypertension; Pure hypercholesterolemia; DM (diabetes mellitus), type 2 with neurological complications (CMS/HCC V24, CMS/HCC V28) from Last 3 Months Surgical History Surgery Date Site/Laterality Comments CORONARY ARTERY BYPASS GRAFT 11/20/2016 PROCEDURE: HISTORICAL CABG; COMMENT: 3 vessel CARPAL TUNNEL RELEASE Right PROCEDURE: HISTORICAL CARPAL TUNNEL REL OTHER SURGICAL HISTORY 2007 Left PROCEDURE: KS ABLATION RENAL TUMOR UNILATERAL PERQ CRYOTHERAPY; COMMENT: Cryotherapy Left Renal Mass BACK SURGERY PROCEDURE: HISTORICAL BACK SURGERY; COMMENT: x 3 OTHER SURGICAL HISTORY PROCEDURE: HISTORY OTHER; COMMENT: testicular surgery TOTAL KNEE ARTHROPLASTY 12/24/2015 Left PROCEDURE: HISTORICAL TOTAL KNEE REPLACE CHOLECYSTECTOMY PROCEDURE: HISTORICAL CHOLECYSTECTOMY OTHER SURGICAL HISTORY Bilateral PROCEDURE: HISTORY OTHER; COMMENT: Hernia Repair OTHER SURGICAL HISTORY PROCEDURE: KS MANIPULATION KNEE JOINT UNDER GENERAL ANESTHESIA; COMMENT: x 2, 05/22/16 & 04/21/16. No cultures taken OTHER SURGICAL HISTORY PROCEDURE: RESECTION/DEBRIDEMENT OF PANCREAS; COMMENT: Pancreatic debridement 2008 & 2009 [facility] OTHER SURGICAL HISTORY PROCEDURE: KS TENDON SHEATH INCISION; COMMENT: trigger finger release ROTATOR CUFF REPAIR Right PROCEDURE: HISTORICAL ROTATOR CUFF REPAIR OTHER SURGICAL HISTORY 01/23/2016 Left PROCEDURE: KS ARTHRP KNEE TIBIAL PLATEAU DBRDMT&PRTL SYNVCT; COMMENT: and 01/17/16 with polyethylene liner exchange CARDIAC CATHETERIZATION 1986 PROCEDURE: HISTORICAL CARDIAC CATH; COMMENT: with stent placement OTHER SURGICAL HISTORY PROCEDURE: KS UNLISTED LAPAROSCOPY PROCEDURE BILIARY TRACT; COMMENT: biliary bypass Medical History Medical History Date Comments Carpal tunnel syndrome 04/09/2018 DX:Carpal tunnel syndrome; COMMENT: Right release Chronic infection of left kn ee ([facility] V24, [facility] V28) 04/09/2018 DX:Chronic infection of lef t knee ([facility]); COMMENT: MRSA Hearing loss 04/09/2018 DX:Hearing loss; COMMENT: Bilateral hearing aids History of kidney cancer 04/09/2018 DX:Hist ory of kidney cancer; COMMENT: 2007 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 DX:Necr otizing pancreatitis; COMMENT: [...] (diabetes mellitus), type 2 with neurological complications ([facility] V24, [facility] V28) 04/09/2018 DX:DM (diabetes mellitus), t ype 2 with neurological complications ([facility]); COMMENT: Insulin pump Osteoarthritis 04/09/2018 DX:Osteoarthriti s Family History Medical History Relation Name Comments CABG Brother CVA Heart attack Father age 50 of [place], diabetes Stroke Mother age 50 of CVA [...] Diabetes: Blood Sugar Control Test (HGBA1C) 02/23/2022 COVID-19 Vaccine (6 - Pfizer risk season) 2024 12/12/2023, 11/21/2021, 12/17/2020, Additional history exists Diabetes: Annual GFR (Glomerular Filtration Rate) 01/23/2025 01/24/2024, 06/12/2017 Hypertension/CHF/CAD Annual BMP Blood Test 01/23/2025 01/24/2024, 06/12/2017 Cholesterol Screening (Lipid Panel) 01/23/2029 01/24/2024 DTaP,Tdap,and Td Vaccines (5 - Td or Tdap) 10/10/2032 10/10/2022, 03/24/2022, 12/11/2011, Additional history exists Pneumococcal Vaccine: 50+ Years Completed 06/17/2015, 09/11/2013, 03/12/2009 Zoster Vaccines Completed 02/18/2021, 07/0 10/2020, 11/12/2012 Influenza Vaccine Completed 11/22/2023, , 12/14/2022, Additional history exists RSV Immunization Adult Patients Completed 01/22/2024 HIB Vaccines Aged Out No [...] age to complete this topic Meningococcal B Vaccine Aged Out No l onger eligible based on patient's age to complete this topic RSV Immunization Patients Under 20 months Aged Out No longer eligible based on patient's age to complete this topic Varicella Vaccines Aged Out No longer eligible based on patient's age to complete this topic Procedures Procedure Name Priority Date/Time Associated Diagnosis Comments ECG 12-LEAD Routine 05/12/2024 10:32 AM EST 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 Primary hypertension Pure hypercholesterolemia DM (diabetes mellitus), type 2 with neurological complications (CMS/HCC V24, CMS/HCC V28) BASIC METABOLIC PANEL Routine 01/24/2024 10:35 AM [...] GEMUSE QTc 408 ms GEMUSE P Wave [place] 99 degrees GEMUSE R [place] 5 degrees GEMUSE T [place] 0 degrees GEMUSE ECG Interpretation Sinus bradycardia with 1st degree A-V block Septal infarct (cited on or before 23-JAN-2016) Abnormal ECG When compared with ECG of 09-FEB-2021 11:03, No significant changes are noted Confirmed by YENI CASEY ([id number]) on 05/12/2024 10:37:52 AM GEMUSE 05/12/2024 10:3 2 AM EST 05/12/2024 10:37 AM EST us Yeni Casey MD ECG ORDERABLES Final Result [facility] * (ABNORMAL) Lipid panel with reflex to direct LDL (01/24/2024 10:35 AM EST) Cholesterol 79 0 - 200 mg/dL LAB CHEMISTRY METHOD 01/24/2024 1:25 PM EST [facility] Triglycerides 88 0 - 150 mg/dL LAB CHEMISTRY METHOD 01/24/2024 1:25 PM EST [facility] HDL 20(L) >=40 mg/dL LAB CHEMISTRY METHOD 01/24/2024 1:25 PM EST [facility] LDL Calculated 41 0 - 100 mg/dL LAB CHEMISTRY METHOD 01/24/2024 1:25 PM [facility] VLDL Cholesterol Will 17.6 mg/dL LAB CHEMISTRY METHOD 01/24/2024 1:25 PM EST [facility] Non HDL Chol. (LDL+VLDL) 59 <145 mg/dL LAB CHEMISTRY METHOD 01/24/2024 1:25 PM EST [facility] Chol/HDL Ratio 4.0 0.0 - 4.4 LAB CHEMISTRY METHOD 01/24/2024 1:25 PM [facility] Blood Venous blood specimen / Unknown Venipuncture / Unknown 01/24/2024 10:35 AM EST 01/24/2024 10:35 AM EST us Dedra Bowden REGULATED PROGRAM MANAGER LAB BLOOD ORDERABLES Fi nal Result [facility] [address] [place] [address], * (ABNORMAL) Basic metabolic panel (01/24/2024 10:35 AM EST) Sodium 135 133 - 145 mmol/L LAB CHEMISTRY METHOD 01/24/2024 1:09 PM EST [facility] Potassium 4.3 3.5 - 5.5 mmol/L LAB CHEMISTRY METHOD 01/24/2024 1:09 PM [facility] Chloride 104 96 - 110 mmol/L LAB CHEMISTRY METHOD 01/24/2024 1:09 PM [facility] CO2 26 21 - 32 mmol/L LAB CHEMISTRY METHOD 01/24/2024 1:09 PM [facility] Anion Gap 5 3 - 11 LAB CHEMISTRY METHOD 01/24/2024 1:09 PM [facility] Glucose 179(H) 70 - 100 mg/dL LAB CHEMISTRY METHOD 01/24/2024 1:09 PM [facility] BUN 38(H) 5 - 25 mg/dL LAB CHEMISTRY METHOD 01/24/2024 1:09 PM [facility] Creatinine 1.56(H) 0.70 - 1.30 mg/dL LAB CHEMISTRY METHOD 01/24/2024 1:09 PM [facility] eGFR 44(L) >=60 mL/min/1. 73m2 LAB CHEMISTRY METHOD 01/24/2024 1:09 PM [facility] Comment:Calculation based on the??Chronic Kidney Disease Epidemiology Collaboration (CKD-EPI) equation refit??without adjustment for race. BUN/Creatinine Ratio 24.4 LAB CHEMISTRY METHOD 01/24/2024 1:09 PM [facility] Calcium 8.5 8.5 - 10.5 mg/dL LAB CHEMISTRY METHOD 01/24/2024 1:09 PM [facility] Blood Venous blood specimen / Unknown Venipuncture / Unknown 01/24/2024 10:35 AM EST 01/24/2024 10:35 AM EST us Dedra Bowden REGULATED PROGRAM MANAGER LAB BLOOD ORDERABLES Fi nal Result [facility] [address] [place] [address], from Last 3 Months or Most Recently Relevant to Health Maintenance Insurance MEDICARE [facility] Care Teams Sliver Lap Tender Relationship Specialty Start Date End Date William Mcghee DO [address] [place] [phone] PCP - General 01/22/13
--- OUTSIDE RECORDS SUMMARY | 2024-07-29 15:09 | XMS_ITS ---
Author Name [facility] [place] [facility] [facility] [place] Address [address] [place] [address] Care Team Providers Care Construction Inspector Name Role Phone BONITA HELMS Primary Care [...] MEGHANA MEDEX ANDRY E Mar 12, 2016 [id number] PRIYANK TURPIN SEPH PATIENT MEDICARE (WNR) MEDICARE (M) PART B May 10, 2004 PART B [id number] [phone] PRIYANK TURPIN SEPH PATIENT MEDICARE (WNR) MEDICARE (M) PART B May 10, 2004 PART B [id number] PRIYANK TURPIN SEPH PATIENT MEDICARE (WNR) MEDICARE (M) PART A July 10, 1997 PART A [id number] [phone] PRIYANK TURPIN PATIENT MEDICARE (WNR) MEDICARE (M) PART A July 10, 1997 PART A [id number] [facility] PRIYANK TURPIN PATIENT Selected Encounter This section includes the information on record at [place] for the Encounter. Date/Time Encounter Type Encounter Description Reason Provider Source Oct 08, 2023 12:00 PM Outpatient Encounter [facility] PHYSIC EXTND(IT SALES REPRESENTATIVE,ASSISTANT COOK,PA) ICD-10-CM C67.9 Malignant neoplasm of bladder, unspecified BONITA HELMS Luiza Encounter Template Text not used by [place] Assessments - Encounter Diagnoses This section includes the primary and secondary diagnoses documented for the Encounter. Date/Time Primary/Secondary Diagnosis Diagnosis Name Provider Source Nov 14, 2023 11:42 AM PRIMARY Malignant neoplasm of bladder, unspecified BONITA HELMS [facility] [facility] [place] [facility] Nov 14, 2023 11:42 AM SECONDARY Acquired total absence of pancreas BONITA HELMS [facility] [place] [facility] Nov 14, 2023 11:42 AM SECONDARY Athscl heart disease of [place] coronary artery w/o ang pctrs BONITA HELMS [facility] [place] [facility] Nov 14, 2023 11:42 AM SECONDARY Complete rotatr-cuff tear/ruptr of unsp shoulder, not trauma BONITA HELMS [facility] [place] [facility] Nov 14, 2023 11:42 AM SECONDARY Hypertensive heart disease without heart failure BONITA HELMS [facility] [place] [facility] Nov 14, 2023 11:42 AM SECONDARY Nexdtve age-related mclr degn, bilateral, stage unspecified BONITA HELMS [facility] [place] [facility] Nov 14, 2023 11:42 AM SECONDARY Radiculopathy, cervical region BONITA HELMS [facility] [place] [facility] Nov 14, 2023 11:42 AM SECONDARY Type 1 diabetes mellitus with hyperglycemia BONITA HELMS [facility] [place] [facility] Nov 14, 2023 11:42 AM SECONDARY Unilateral primary osteoarthritis, left knee SCOOTER,BONITA GRANT [place] [facility] [place] [facility] Nov 14, 2023 11:42 AM SECONDARY Unspecified hearing loss, bilateral BONITA HELMS [facility] [place] [facility] Plan of Treatment: Future Appointments (+ 6 months) and Future Tests (+/- 45 days) The Plan of Treatment section includes future care activities for the patient from all [place] [facility]. This section includes future appointments [...] 11:00 AM AMBULATORY - REHAB MEDICIN E [place] [facility] [place] [facility] Nov 28, 2023 10:30 AM AMBULATORY - MEDICINE [place] [facility] [place] [facility] Nov 28, 2023 11:30 AM AMBULATORY - [place]IC[place] [facility] [place] [facility] Nov 28, 2023 11:45 AM AM[place]ULATORY - [place] [facility] [place] [facility] Jan 09, 2024 02:00 PM AMBULATORY - [facility] [facility] [place] [facility] Feb 29, 2024 11:00 AM AMBULATORY - REHAB MEDICIN E [facility] Mar 17, 2024 11:00 AM AMBULATORY - REHAB MEDICIN E [facility] [facility] [place] [facility] Vital Signs: All taken on the encounter date This section contains inpatient and outpatient Vital Signs collected on the date of the Encounter. Date/Time Temperature Pulse Blood Pressure Respiratory Rate SP02 Pain Height Weight Body Mass Index Source Oct 08, 2023 12:00 PM 98.2 46 138/60 18 99 5 [place] [facility] Social History: Smoking Status (Most [...] Facil ute Mar 24, 2022 10:01 AM [place]-TOBAC[place] NEVER USED [place] [facility] [place] [facility] Advance Directives: All historical and [...] PATRICIA YOUSSEF EXP COSIGNER: URGENCY: STATUS: COMPLETED Stuart is now admitted to [facility]. All future clinic primary care appointments/recalls may be cancelled as all primary care will now be delivered by the HB team. /devon/ PATRICIA YOUSSEF HB TRUCK SAFETY INSPECTOR Signed: 10/08/2023 20:08 Receipt Acknowledged By: 10/09/2023 08:39 /es/ Frederick Uribe RN Registered Nurse (RN) 10/09/2023 08:18 /es/ YENI PUENTES PA-C STAFF PHYSICIAN MUFFLER MECHANIC 10/09/2023 08:32 /es/ ESSENCE ROUSSEAU Advanced Sdv Pilot/Navigator/Dds Operator --- Original Document --- 10/08/23 HB PROVIDER ASSESSMENT: Stuart was seen for: [ ] Initial Review [ ] Annual Review [ ] Interim Visit Identified by name, , address and facial recognition: Y VVC Ready: Yes [ ] No [ ] HPI:83 yo M seen for admit to [facility]. His , Ayah, was also present. 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 HISTORY: PERIOD OF SERVICE - [employer] FROM Oct TO May COMBAT SERVICE INDICATED: No SH: SERVICE CONNECTED % - 50 IMPAIRED HEARING 40% SC TINNITUS 10% SC MARITAL STATUS - [place] Providers Audiology Non- [place] Providers Community PCP- Dr. Mcghee/IT SALES REPRESENTATIVE Dr. Davies- Endocrine (last seen 09/05/23) Dr. Damon- [facility] Hospitalizations/Surgery CABGx3 left carpal tunnel release 2018 bilat inguinal hernia repair, 2013 pancreatic debrivement, biliary bypass right carpal tunnel release bilat rotator cuff repairs Lumbar spine procedire X3, 1972, 1979, 1993 Social quit smoking 30 years [...] Generalized anxiety disorder 14. Pancreatitis (SNOMED CT 94298789) 15. ENDOSCOPY 16. Hematuria 17. Foot drop 18. Trochanteric Bursitis 19. Screening for Malignant Neoplasms of colon 20. SENSORNEUR HEAR LOSS NOS 21. Gastroesophageal Reflux Disorder 22. Hypertension (SNOMED CT 57191643) 23. Depressive Disorder NOS 24. Diabetes mellitus (SNOMED CT 50285828) 25. HYPERLIPIDEMIA NEC/NOS Review of Systems: CONSTITUTIONAL: [...] > EKG ordered to be done at [facility], October 16, 2023 Chronic pain, cervical [...] was prescribed, advised to restart, ordered from [place] [facility] > denies symptoms Depression, bereavement > [...] needs and will benefit from ongoing interdisciplinary [facility] management. Treatment plan included shared decision making and is confirmed with the Stuart/caregiver. All questions answered, education provided regarding medication, including details regarding any changes. All questions answered. /devon/ BONITA HELMS HB NURSE PRACTITIONER Signed: 10/08/2023 15:16 10/08/2023 ADDENDUM STATUS: COMPLETED Admit to [facility] and add to IDT discussion. No labs needed. Peg- can you send a request for records to Cardiology (fax [phone]) and Dr. Davies ([phone])? Thanks. /hilton HELMS [facility] NURSE PRACTITIONER Signed: 10/08/2023 15:22 Receipt Acknowledged By: 10/08/2023 20:17 /hilton YOUSSEF HB TRUCK SAFETY INSPECTOR * AWAITING SIGNATURE * DALTON TRINIDAD PEGGY M [place] [facility] [place] [facility] Oct 08, 2023 03:16 PM ADDENDUM: LOCAL TITLE: Addendum STANDARD TITLE: ADDENDUM DATE OF NOTE: OCT 08, 2023@15:16:23 ENTRY DATE: OCT 08, 2023@15:16:23 AUTHOR: BONITA HELMS COSIGNER: URGENCY: STATUS: COMPLETED Admit to [facility] and add to IDT discussion. No labs needed. Peg- can you send a request for records to Cardiology (fax [phone]) and Dr. Davies ([phone])? Thanks. /es/ BONITA HELMS [facility] NURSE PRACTITIONER Signed: 10/08/2023 15:22 Receipt Acknowledged By: 10/08/2023 20:17 /es/ PATRICIA YOUSSEF [facility] TRUCK SAFETY INSPECTOR 10/09/2023 22:00 /es/ Dolores Mancilla DIRECTOR OF MARKET ANALYSIS [facility] TRAINING DEVELOPMENT MANAGER for DALTON TRINIDAD --- Original Document --- 10/08/23 [facility] PROVIDER ASSESSMENT: Stuart was seen for: [ ] Initial Review [...] christofer placement. HISTORY: PERIOD OF SERVICE - [employer] FROM Oct TO May COMBAT SERVICE INDICATED: No SH: SERVICE CONNECTED % - 50 IMPAIRED HEARING 40% SC TINNITUS 10% SC MARITAL STATUS - [place] Providers Audiology Non- [place] Providers Community PCP- Dr. Mcghee/IT SALES REPRESENTATIVE Dr. Davies- Endocrine (last seen 09/05/23) Dr. [...] Generalized anxiety disorder 14. Pancreatitis (SNOMED CT 31300355) 15. ENDOSCOPY 16. Hematuria 17. Foot drop 18. Trochanteric Bursitis 19. Screening for Malignant Neoplasms of colon 20. SENSORNEUR HEAR LOSS NOS 21. Gastroesophageal Reflux Disorder 22. Hypertension (SNOMED CT 98117603) 23. Depressive Disorder NOS 24. Diabetes mellitus (SNOMED CT 75715241) 25. HYPERLIPIDEMIA NEC/NOS Review of Systems: CONSTITUTIONAL: [...] > EKG ordered to be done at [facility], October 16, 2023 Chronic pain, cervical [...] decision making and is confirmed with the Stuart/caregiver. All questions answered, education provided regarding medication, including details regarding any changes. All questions answered. /devon/ BONITA HELMS [facility] NURSE PRACTITIONER Signed: 10/08/2023 15:16 10/08/2023 ADDENDUM STATUS: COMPLETED is now admitted to [facility]. All future clinic primary care appointments/recalls may be cancelled as all primary care will now be delivered by the [facility] team. /devon/ PATRICIA YOUSSEF HB TRUCK SAFETY INSPECTOR Signed: 10/08/2023 20:08 Receipt Acknowledged By: 10/09/2023 08:39 /es/ Frederick Uribe RN Registered Nurse (RN) 10/09/2023 08:18 /es/ YENI PUENTES PA-C STAFF PHYSICIAN MUFFLER MECHANIC 10/09/2023 08:32 /devon/ ESSENCE ROUSSEAU Advanced Sdv Pilot/Navigator/Dds Operator BONITA HELMS [facility] [place] [facility] Oct 08, 2023 12:00 PM [facility] ATTENDING NOTE: LOCAL TITLE: [facility] PROVIDER ASSESSMENT STANDARD TITLE: [facility] ATTENDING NOTE DATE OF NOTE: OCT 08, 2023@12:00 ENTRY DATE: OCT 08, 2023@12:00:33 AUTHOR: BONITA HELMS COSIGNER: URGENCY: STATUS: COMPLETED [facility] PROVIDER ASSESSMENT Has ADDENDA was seen for: [ ] Initial Review [...] christofer placement. HISTORY: PERIOD OF SERVICE - [employer] FROM Oct TO May COMBAT SERVICE INDICATED: No SH: SERVICE CONNECTED % - 50 IMPAIRED HEARING 40% SC TINNITUS 10% SC MARITAL STATUS - [place] Providers Audiology Non- [place] Providers Community PCP- Dr. Mcghee/IT SALES REPRESENTATIVE Dr. Davies- Endocrine (last seen 09/05/23) Dr. Damon- [facility] Hospitalizations/Surgery CABGx3 left carpal tunnel release 2018 bilat inguinal hernia repair, 2013 pancreatic debrivement, biliary bypass right carpal tunnel release bilat rotator cuff repairs Lumbar spine procedire X3, 1972, 1979, 1993 Social quit smoking 30 years ago social drinker, 1 beer weekly retired [employer] Family History Mom very young [...] Generalized anxiety disorder 14. Pancreatitis (SNOMED CT 80423566) 15. ENDOSCOPY 16. Hematuria 17. Foot drop 18. Trochanteric Bursitis 19. Screening for Malignant Neoplasms of colon 20. SENSORNEUR HEAR LOSS NOS 21. Gastroesophageal Reflux Disorder 22. Hypertension (SNOMED CT 68832897) 23. Depressive Disorder NOS 24. Diabetes mellitus (SNOMED CT 30690185) 25. HYPERLIPIDEMIA NEC/NOS Review of Systems: CONSTITUTIONAL: [...] > EKG ordered to be done at [facility], October 16, 2023 Chronic pain, cervical [...] prior to f/u (x )no labs needed Stuart has complex care needs and will benefit from ongoing interdisciplinary [facility] management. Treatment plan included shared decision making and is confirmed with the /caregiver. All questions answered, education provided regarding medication, including details regarding any changes. All questions answered. /devon/ BONITA HELMS [facility] NURSE PRACTITIONER Signed: 10/08/2023 15:16 10/08/2023 ADDENDUM STATUS: COMPLETED Admit to [facility] and add to IDT discussion. No labs needed. Peg- can you send a request for records to Cardiology (fax [phone]) and Dr. Davies ([phone])? Thanks. /devon/ BONITA HELMS [facility] NURSE PRACTITIONER Signed: 10/08/2023 15:22 Receipt Acknowledged By: * AWAITING SIGNATURE * PATRICIA YOUSSEF * AWAITING SIGNATURE * DALTON TRINIDAD 10/08/2023 ADDENDUM STATUS: COMPLETED is now admitted to [facility]. All future clinic primary care appointments/recalls may be cancelled as all primary care will now be delivered by the [facility] team. /hilton YOUSSEF [facility] TRUCK SAFETY INSPECTOR Signed: 10/08/2023 20:08 Receipt Acknowledged By: * AWAITING SIGNATURE * FREDERICK URIBE * AWAITING SIGNATURE * YENI PUENTES * AWAITING SIGNATURE * ESSENCE ROUSSEAU,BONITA [facility]
--- OUTSIDE RECORDS SUMMARY | 2024-07-29 15:09 | XMS_ITS | Encounter Summary ---
Author Name [facility] [place] Organization [place] Address [address] [place] [address] Care Team Providers Care Tire Rebuilder Name Role Phone BONITA HELMS Primary Care Provider UnavailMOHAMUD Banuelos Unavailable Unavailable MISAEL RAMIREZ Unavailable Unavailable BELA RODNEY Unavailable Unavailable APPLE, LON Unavailable Unavailable PATRICIA YOUSSEF Unavailable Unavailable ERINN [...] MEGHANA MEDEX ANDRY E Mar 12, 2016 [id number] PRIYANK ELIZABETH SEPH PATIENT MEDICARE (WNR) MEDICARE (M) PART B May 10, 2004 PART B [id number] [phone] PRIYANK ELIZABETH SEPH PATIENT MEDICARE (WNR) MEDICARE (M) PART B May 10, 2004 PART B [id number] [phone] PRIYANK ELIZABETH SEPH PATIENT MEDICARE (WNR) MEDICARE (M) PART A July 10, 1997 PART A [id number] PRIYANK ELIZABETH PATIENT MEDICARE (WNR) MEDICARE (M) PART A July 10, 1997 PART A [id number] [phone] PRIYANK ELIZABETH PATIENT Selected Encounter This section includes the information on record at [place] for the Encounter. Date/Time Encounter Type Encounter Description Reason Provider Source Jun 02, 2024 08:22 AM NQHP OL DIG ASSMT&MGMT 21+ [facility] - CLINICAL PHARMACIST ICD-10-CM Z79.899 Other correction (current) drug therapy CELE VELÁZQUEZ [facility] Encounter Template Text not used by [place] Assessments - Encounter Diagnoses This section includes the primary and secondary diagnoses documented for the Encounter. 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 This section includes future appointments and future orders which are active, pending or scheduled. Future Appointments This section includes appointments that were scheduled to occur 6 months from the date of the Encounter, up to a maximum of 20 appointments. The data comes from all [place] treatment [facility]. Appointment Date/Time Appointment Type Appointme nt Facility Name Jul 08, 2024 01:00 PM AMBULATORY - [facility]RY [facility] July 23, 2024 11:00 AM AM[facility] August 08, 2024 11:00 AM AMBULATORY - REHAB MEDICIN [place] Sep 03, 2024 12:30 PM [facility] Active, Pending, and Scheduled Orders This section includes a listing of several types of active, pending, and scheduled orders, including clinic medications orders, diagnostic test orders, procedure orders and consult orders; where the start date of the order is 45 days before the date of the Encounter or 45 days after the date of theEncounter. The data comes from all [place] treatment [facility]. Test Date/Time Test Type Test Details Facility Name Jun 03, 2024 10:59 AM Consult Order COMMUNITY CARE-ENDOCRINE Cons Stunt Double's Choice [facility] Jul 04, 2024 12:00 AM Laboratory - Chemistry Order ALCOHOL, ETHYL URINE PANEL [facility] [place] [facility] Jul 04, 2024 12:00 AM Laboratory - Chemistry Order AMPHETAMINES SCREEN PANEL URINE (DRUG) [facility] Jul 04, 2024 12:00 AM Laboratory - Chemistry Order FENTANYL SCREEN PANEL URINE (DRUG[facility] Jul 04, 2024 12:00 AM Laboratory - Chemistry Order BENZODIAZEPINES SCREEN PANEL URINE (DRUG) [facility] Jul 04, 2024 12:00 AM Laboratory - Chemistry Order BUPRENORPHINE SCREEN PANEL URINE (DRUG) [facility] Jul 04, 2024 12:00 AM Laboratory - Chemistry Order CANNABINOIDS SCREEN PANEL URINE (DRUG) [facility] Jul 04, 2024 12:00 AM Laboratory - Chemistry Order OPIATES SCREEN PANEL URINE (DRUG) [facility] Jul 04, 2024 12:00 AM Laboratory - Chemistry Order OXYCODONE SCREEN PANEL URINE (DRUG) [facility] Jul 04, 2024 12:00 AM Laboratory - Chemistry Order COCAINE SCREEN PANEL URINE (DRUG) [facility] Jul 04, 2024 12:00 AM Laboratory - Chemistry Order METHADONE SCREEN (CH) URINE (DRUG) [facility] Social History: Smoking Status (Most [...] 24, 2022 10:01 AM CO-TOBACCO NEVER USED [facility] Advance Directives: All historical and current [...] DATE: JUN 03, 2024@10:53:06 AUTHOR: DILLON COLVIN EXP COSIGNER: URGENCY: STATUS: COMPLETED This PDMP query was submitted by Erinn Colvin ORGANIZATIONAL CONSULTANT. The clinical justification for this PDMP query is to review controlled substances prescribed outside of the [facility], and any additional information that may become available, as an important component of standard clinical care, and in accordance with [facility] policy. Patient information was shared with the PDMP [employer]. No prescription(s) for controlled substances outside the [facility] were found in the last 90 days. /devon/ ERINN COLVIN RN,MSN,NEURO INTENSIVIST PHYSICIAN-C [facility] NURSE PRACTITIONER Signed: 06/03/2024 10:53 REESE COLVIN [facility] [place] [facility] Jun 02, 2024 08:22 AM [facility] MEDICATION MGT NOTE: LOCAL TITLE: [facility] PHARMACY MEDICATION REVIEW STANDARD TITLE: [facility] MEDICATION MGT NOTE DATE OF NOTE: JUN 02, 2024@08:22 ENTRY DATE: JUN 02, 2024@08:22:44 AUTHOR: CELE VELÁZQUEZ EXP COSIGNER: URGENCY: STATUS: COMPLETED Tay Elizabeth Jr. [...] use may increase risk of respiratory and GLASS SCULLION depression; recommend limiting use of zolpidem with [...] prostate cancer - diagnosed 2021, followed by non-[place] Urology; s/p TURP, under surveillance (cystoscopy every 6 months); recently underwent PET scan given concern for metastasis of bladder cancer with plan for Urology f/u to review * T1DM - hx of total pancreatectomy, on insulin pump (insulin aspart) currently followed by non-CO Endo with support from [facility] IDT, SMBG using CGM (recently switched from [employer] 3 to non- VA CGM that is compatible with insulin pump), [...] vitals at home with HRs in 50s-60s ([facility] RN alerted Cardiology to intermittent bradycardia - recommended to continue current beta mary dosing and with plan for f/u in May 2024); if additional BP lowering is required would consider ROSARIO-i or ARB given last labwork significant for elevated microalbumin/Cr if appropriate upon review of last non-VA Cardiology visit documentation ([facility] RN requested) - was previously on lisinopril [...] remote history of significantly elevated TG (in 2769-3811) 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 - Appreciate intermittent bradycardia over the past quarter with HRs in 50s-60s on beta mary therapy and request for documentation from recent Cardiology f/u. Recommend that continue to track vitals at home for review by [facility] IDT during future home visits as well [...] COVID-19 vaccine. A second dose of the 9903-2477 COVID-19 vaccine is now recommended for those 65 years and older 6 months after the first vaccine. Of note, adolfo received his first dose on 12/12/23 and will be due ~06/11/24. 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 He recently transitioned to a non-VA CGM that is compatible with his insulin pump. The details of this review were shared with the IDT in order to assist in creating a care plan designed to provide services focused on the health and well being of the patient. Time Spent: 60 min /devon/ CELE VELÁZQUEZ [facility] Clinical Pharmacist Practitioner Signed: 06/02/2024 09:23 Receipt Acknowledged By: 06/02/2024 12:25 /es/ BONITA HELMS [facility] NURSE PRACTITIONER 06/02/2024 15:17 /es/ Dolores Mancilla SCHOOL BUS DRIVER HB BARK TANNER for CELE HOWARD [facility]
--- OUTSIDE RECORDS SUMMARY | 2024-07-29 15:10 | XMS_ITS | Encounter Summary ---
Author Name Department [place] Address [address] [place] [address] Care Team Providers Care Acute Care Registered Nurse Name Role Phone BONITA HELMS Primary [...] Relationship to Policy [place] [employer] MEDICARE SUPPLEMETHODIST [facility] MEGHANA KCEX ANDRY Jarrett Mar 12, 2016 [id number] PRIYANK TURPIN SEPH PATIENT MEDICARE (WNR) MEDICARE (M) PART B May 10, 2004 PART B [id number] PRIYANK TURPIN SEPH PATIENT MEDICARE (WNR) MEDICARE (M) PART B May 10, 2004 PART B [id number] PRIYANK TURPIN SEPH PATIENT MEDICARE (WNR) MEDICARE (M) PART A July 10, 1997 PART A [id number] [id number] PRIYANK TURPIN PATIENT MEDICARE (WNR) MEDICARE (M) PART A July 10, 1997 PART A [id number] [phone] PRIYANK TURPIN PATIENT Selected Encounter This section includes the information on record at [place] for the Encounter. Date/Time Encounter Type Encounter Description Reason Provider Source Mar 17, 2024 11:00 AM EAR IMPRESSION AUDIOLOGY ICD-10-CM Z46.1 Encounter for fitting and adjustment of hearing aid DONI JAIN Luiza Encounter Template Text not used by [place] Assessments - Encounter Diagnoses This section includes the primary and secondary diagnoses documented for the Encounter. Date/Time Primary/Secondary Diagnosis Diagnosis Name Provider Source Mar 17, 2024 11:33 AM PRIMARY Encounter for fitting and adjustment of hearing aid TONJA CAPPS [facility] Mar 17, 2024 11:33 AM SECONDARY Sensorineural hearing loss, bilateral TONJA CAPPS [facility] [place] [facility] Plan of Treatment: Future Appointments (+ 6 months) and Future Tests (+/- 45 days) The Plan of Treatment section includes future care activities for the patient from all [place] [facility]. This section includes future appointments and future orders which are active, pending or scheduled. Future Appointments This section includes appointments that were scheduled to occur 6 months from the date of the Encounter, up to a maximum of 20 appointments. The data comes from all [place] treatment facilities. Appointment Date/Time Appointment Type Appointme nt Facility Name Apr 11, 2024 01:00 PM AMBULATORY - RE[facility]AB [facility] May 06, 2024 10:30 AM AMBULATORY - REHAB MEDICIN [place] [facility] [place] [facility] May 22, 2024 11:30 AM AMBULATORY - MEDICINE [facility] [place] [facility] Jul 08, 2024 01:00 PM AMBULATORY - PSYCHIATRY [facility] July 23, 2024 11:00 AM AMBULATORY - MEDICINE [place] [facility] [place] [facility] August 08, 2024 11:00 AM AMBULATORY - REHAB MEDICIN [place] Sep 03, 2024 12:30 PM AMBULATORY - MEDICINE [facility] [place] [facility] Lab Results: +/- 30 days of the encounter This section includes the Chemistry and Hematology Lab Results on record with [place] for the patient. Radiology Reports and Pathology Reports are provided separately, in subsequent sections. Lab Results This section contains the Chemistry/Hematology Results that were resulted 30 days before or 30 daysafter the date of the Encounter. Date/Time Source Result Type Result - Unit Interpretation Reference Range Specimen Type Comment Mar 17, 2024 11:31 AM [place] VITAMIN B12 SERUM Specimen Type: SERUM No comment entered. Ordering Provider: YENI PUENTES Report Released Date/Time: Jun 11, 2023 11:06 AM Reporting Lab: [address] [address] Performing Lab: [address] [address] VITAMIN B12 512 pg/mL 200-900 Mar 17, 2024 11:31 AM [place] FERRITIN SERUM Sp ecimen Type: SERUM No comment entered. Ordering Provider: YENI PUENTES Report Released Date/Time: Jun 11, 2023 11:06 AM Reporting Lab: [facility] [address] [address] Performing Lab: [address] [address] FERRITIN 57 ng/mL 20-300 Mar 17, 2024 11:31 AM [place] TSH SERUM Sp ecimen Type: SERUM No comment entered. Ordering Provider: YENI PUENTES Report Released Date/Time: Jun 11, 2023 11:06 AM Reporting Lab: [address] [address] Performing Lab: [address] [address] TSH 3.25 u[IU]/mL 0.35-5.00 Mar 17, 2024 11:31 AM [place] HEMOGLOBIN A1C PANEL BLOOD Specimen T ype: [...] Jun 11, 2023 11:06 AM Reporting Lab: [facility] [address] [address] Performing Lab: [facility] [address] [address] HEMOGLOBIN A1C 7.4 H 4.0-5.6 Mar 17, 2024 11:31 AM [place] MICROALBUMIN CREATININE RATIO PANEL URINE Specimen Type: URINE No comment entered. Ordering Provider: YENI PUENTES Report Released Date/Time: Jun 11, 2023 11:06 AM Reporting Lab: [facility] [address] [address] Performing Lab: [facility] [address] MICROALBUMIN/CREATININE RATIO 155.3 mg/g H 0-29.9 MICROALBUMIN,QUANTITATIVE 41.2 mg/dL RR UNAVAIL CREATININE URINE 265.23 mg/dL Mar 17, 2024 11:31 AM [place] CALCIUM SERUM Sp ecimen Type: SERUM No comment entered. Ordering Provider: YENI PUENTES Report Released Date/Time: Jun 11, 2023 11:06 AM Reporting Lab: [facility] [address] [address] Performing Lab: [facility] [address] CALCIUM 9.3 mg/dL 8.5-10.2 Mar 17, 2024 11:31 AM [place] LIPID PANEL FASTING SERUM Specimen Ty pe: SERUM No comment entered. Ordering Provider: YENI PUENTES Report Released Date/Time: Jun 11, 2023 11:06 AM Reporting Lab: [facility] [address] Performing Lab: [facility] [address] CHOLESTEROL 113 mg/dL TRIGLYCERIDE 141 mg/dL 0-150 LDL calculated 57 mg/dL 0-129 CHOL/HDL 4.0 HDL CHOLESTEROL 28 mg/dL L 40-60 Mar 17, 2024 11:31 AM [place] LIVER FUNCTION SERUM Specimen Type: SERUM No comment entered. Ordering Provider: YENI PUENTES Report Released Date/Time: Jun 11, 2023 11:06 AM Reporting Lab: [address] [address] Performing Lab: [address] [address] PROTEIN,TOTAL 7.2 g/dL 6.0-8.3 ALBUMIN 3.9 g/dL 3.5-5.0 ALKALINE PHOSPHATASE 86 U/L 40-150 AST 44 U/L H 5-34 ALT 28 U/L BILIRUBIN, TOTAL 0.4 mg/dL 0.2-1.2 Mar 17, 2024 11:31 AM [place] BASIC METABOLIC PANEL (fasting) SERUM Specimen Type: SERUM No comment entered. Ordering Provider: YENI PUENTES Report Released Date/Time: Jun 11, 2023 11:06 AM Reporting Lab: [address] [address] Performing Lab: [address] [address] UREA NITROGEN 39 mg/dL H 7-25 GLUCOSE 121 mg/dL H 65-100 SODIUM 139 mmol/L 135-145 POTASSIUM 4.2 mmol/L 3.5-5.0 CHLORIDE 102 mmol/L 100-110 CO2 28 meq/L 20-30 CREATININE, Serum 1.83 mg/dL H 0.50-1.40 eGFR(CKD-EPI 2020) 36 mL/min L >60 Mar 17, 2024 11:31 AM [place] URINALYSIS URINE S pecimen Type: URINE Comment: If Glucose = >500 and Ketones are positive, please alert the Physician. Ordering Provider: YENI PUENTES Report Released Date/Time: Jun 11, 2023 11:06 AM Reporting Lab: [address] [address] Performing Lab: [address] [address] UA COLOR Yellow Yellow UA APPEARANCE Turbid Clear UA GLUCOSE Normal mg/dL Negative UA KETONES TRACE mg/dL Negative UA BLOOD NEGATIVE mg/dL Negative UA PROTEIN 70 mg/dL Negative UA NITRITE NEGATIVE mg/dL Negative UA BILIRUBIN NEGATIVE mg/dL Negative UA SPECIFIC GRAVITY 1.022 1.016-1.022 UA pH 5.5 5.0-9.0 UA UROBILINOGEN Normal mg/dL <2.0 UA LEUKOCYTE TRACE Negative Mar 17, 2024 11:31 AM [place] URIC ACID SERUM Sp ecimen Type: SERUM No comment entered. Ordering Provider: YENI PUENTES Report Released Date/Time: Jun 11, 2023 11:06 AM Reporting Lab: [address] [address] Performing Lab: [address] [address] URIC ACID 6.4 mg/dL 3.5-7.2 Mar 17, 2024 11:31 AM [place] VITAMIN D (25-OH) SERUM Specimen Type: SERUM No comment entered. Ordering Provider: YENI PUENTES Report Released Date/Time: Jun 11, 2023 11:06 AM Reporting Lab: [address] [address] Performing Lab: [address] [address] VITAMIN D (25-OH) 26 ng/mL 20-50 Mar 17, 2024 11:31 AM [place] MICROSCOPIC AUTOMATED, URINE URINE Sp ecimen Type: URINE Comment: If Glucose = >500 and Ketones are positive, please alert the Physician. Ordering Provider: YENI PUENTES Report Released Date/Time: Jun 11, 2023 11:06 AM Reporting Lab: [address] [address] Performing Lab: [address] [address] UA WBC 0-5 /[HPF] 0-5 UA MUCUS MODERATE /[LPF] Trace UA HYALINE CASTS 5-9 /[LPF] H 0-2 UA RBC 0-2 /[HPF] 0-3 UA SQUAMOUS EPITH FEW /[HPF] Mar 17, 2024 11:31 AM [place] CBC AND DIFF (AUTO) BLOOD Specimen Ty pe: BLOOD No comment entered. Ordering Provider: YENI PUENTES Report Released Date/Time: Jun 11, 2023 11:06 AM Reporting Lab: [place] [facility] [address] [address] Performing Lab: [place] [place] [facility] [address] [address] WBC 6.12 10*3/uL 4.50-11.00 RBC 4.58 10*6/uL [...] and tobacco- related health factors from the [place] facility where the Encounter took place. Current Smoking Status This section includes the most current smoking, or tobacco-related health factor, from the [place] facility where the Encounter took place. Date/Time Current Smoking Status Comment Facil ity Mar 24, 2022 10:01 AM VA-TOBACCO NEVER USED [facility] [place] [facility] Advance Directives: All historical and current Section Date Range: From patient's date of to the date document was created. This section includes ALL of a patient's completed or amended VA Advance and Rescinded Directives. The entries below indicate that a directive exists for the patient, but an actual copy is not included with this document. The data comes from all [place] facilities. Date Advance Directives Provider Source Jun [...] HT appointment on 04/11/2024 @ 1300 on [facility] for picker feeder. RTC entered. /devon/ CELE CAPPS Audiology Health Nuclear Radiation Engineer Signed: 04/02/2024 09:11 /devon/ XAVIER Barkley, [facility]-A CHIEF, AUDIOLOGY/RISK ASSESSMENT CONSULTANT Cosigned: 04/02/2024 15:00 Receipt Acknowledged By: 04/02/2024 15:13 /devon/ SULEMA FERRERA ========= --- Original Document --- 03/17/24 AUDIOLOGY HEALTH NUCLEAR MEDICINE TECHNOLOGIST: March 17, 2024 History/Background: [place] was seen for a hearing aid follow up, accompanied by his . The presented today for new ear impressions. The previous impressions were taken in 2012, and the [place] has reported a 50 lbs. weight loss since then. The current earmolds are not providing a secure fit. Otoscopy revealed clear canals. With the 's verbal consent, new ear impressions were taken without incident. Two sets of skeleton earmolds will be ordered. Upon receipt of all 4 earmolds, the [place] can be contacted to schedule a 30 min HT appointment on [facility]. to assess the fit. /devon/ CELE CAPPS Audiology Health Nuclear Radiation Engineer Signed: 03/17/2024 11:35 /devon/ Caro Landry CCC-A Principal Product Manager Cosigned: 03/17/2024 13:55 CELE CAPPS [place] CNT [facility] Mar 17, 2024 07:46 AM AUDIOLOGY NOTE: LOCAL TITLE: AUDIOLOGY HEALTH NUCLEAR MEDICINE TECHNOLOGIST STANDARD TITLE: AUDIOLOGY NOTE DATE OF NOTE: MAR 17, 2024@07:46 ENTRY DATE: MAR 17, 2024@07:46:48 AUTHOR: CELE CAPPS COSIGNER: DONI JAIN URGENCY: STATUS: COMPLETED AUDIOLOGY HEALTH NUCLEAR MEDICINE TECHNOLOGIST Has ADDENDA March 17, 2024 History/Background: [place] was seen for a hearing aid follow up, accompanied by his . The [place] presented today for new ear impressions. The previous impressions were taken in 2012, and the [place] has reported a 50 lbs. weight loss since then. The current earmolds are not providing a secure fit. Otoscopy revealed clear canals. With the 's verbal consent, new ear impressions were taken without incident. Two sets of skeleton earmolds will be ordered. Upon receipt of all 4 earmolds, the [place] can be contacted to schedule a 30 min HT appointment on [address] to assess the fit. /devon/ CELE CAPPS Audiology Health Nuclear Radiation Engineer Signed: 03/17/2024 11:35 /Caro Carranza CCC-A Principal Product Manager Cosigned: 03/17/2024 13:55 04/02/2024 ADDENDUM STATUS: COMPLETED Both sets of earmolds received and certified, spoke with the Veterans (on [employer]) and scheduled a 30 min HT appointment on 04/11/2024 @ 1300 on [facility] for picker feeder. RTC entered. /es/ CELE CAPPS Audiology Health Nuclear Radiation Engineer Signed: 04/02/2024 09:11 /devon/ XAVIER Barkley CCC-A CHIEF, AUDIOLOGY/RISK ASSESSMENT CONSULTANT Cosigned: 04/02/2024 15:00 Receipt Acknowledged By: * AWAITING SIGNATURE * SULEMA FERRERA SARAH ANNE [facility]
--- OUTSIDE RECORDS SUMMARY | 2024-07-29 15:10 | XMS_ITS | Clinical Summary ---
Author Organization [facility] Health & [facility] lin Address [address] [place] [address] Care Team Providers Care Hospitalist Medical Director Name Role Phone No, Pcp VEHICLE DELIVERY WORKER Primary Care Provider Unavailabl e Immunizations Name [...] Adults 18 yrs or above (or HM Modifier)([facility]) 05/18/1958 SDOH Screening Reminder: Anita gleason for all adults ([facility]) 05/18/1958 Tobacco Smoking Cessation: i n Adults excluding Women: Behavioral and Pharmacotherapy Interventions ([facility]) 05/18/1957 DTaP/Tdap/Td Vaccines ([facility]) (1 - Tdap) 05/18/1958 Lipid Screening: Every 5 yrs for Men aged 35+ (or HM Modifier) ([facility]) 1975 Pneumococcal Vaccination Scr eening: Patients 50+ yrs of age ([facility]) (1 of 1 - PCV) 05/18/1989 Zoster/Shingles Vaccine Seri es Screening: Adults aged 18+ yrs (or HM Modifiers)([facility]) (1 of 2) 05/18/1989 RSV Vaccines (1 - 1-dose 75+ series) 05/18/2014 COVID-19 Vaccine Screening: Initial Series and Booster Status ([facility]) ( - 2023- season) 2023 Flu Vaccination: Ages 65+: Y early High Dose Recommended (or Modifier)([facility]) 10/10/2024 12/11/2018 Medical Devices Not on file Insurance [facility] MEDICARE MEDICARE Care Teams Hospitalist Medical Director Relationship Specialty Start Date End Date No, Pcp, VEHICLE DELIVERY WORKER N/A Do not use PCP - General Family Medicine 12/11/18
--- OUTSIDE RECORDS SUMMARY | 2024-07-29 15:10 | XMS_ITS | Encounter Summary ---
Author Name [facility] [place] [facility] [place] [facility] [place] Address [address] [place] [address] Care Team Providers Care Research Chef Name Role Phone BONITA HELMS Primary Care [...] Relationship to Policy [place] ANDRY Jarrett Mar 12, 2016 [id number] PRIYANK TURPIN SEPH PATIENT MEDICARE (WNR) MEDICARE (M) PART B May 10, 2004 PART B [id number] PRIYANK TURPIN SEPH PATIENT MEDICARE (WNR) MEDICARE (M) PART B May 10, 2004 PART B [id number] [phone] PRIYANK TURPIN SEPH PATIENT MEDICARE (WNR) MEDICARE (M) PART A July 10, 1997 PART A [id number] PRIYANK TURPIN PATIENT MEDICARE (WNR) MEDICARE (M) PART A July 10, 1997 PART A [id number] PRIYANK TURPIN PATIENT Selected Encounter This section includes the information on record at [place] for the Encounter. Date/Time Encounter Type Encounter Description Reason Provider Source Oct 17, 2023 09:58 AM QNHP OL DIG ASSMT&MGMT 01-29 CLINICAL PHARMACY ICD-10-CM E10.65 Type 1 diabetes mellitus with hyperglycemia CELE VELÁZQUEZ Luiza Encounter Template Text not used by [place] [...] activities for the patient [facility] all [place] [facility] This section includes future appointments and [...] REHAB MEDICIN [place] [facility] [place] [facility] Nov 28, 2023 10:30 AM AMBULATORY - MEDICINE [facility] [place] [facility] Nov 28, 2023 11:30 AM AMBULATORY - MEDICINE [place] [facility] [place] [facility] Nov 28, 2023 11:45 AM AMBULATORY - MEDICINE [place] [facility] [place] [facility] Jan 09, 2024 02:00 PM AMBULATORY - REH[place] MEDICIN [place] [facility] [place] [facility] Feb 29, 2024 11:00 AM AMBULATORY - REHAB [facility] Mar 17, 2024 11:00 AM AMBULATORY - REH[place] MEDICIN [place] [facility] [place] [facility] Apr 11, 2024 01:00 PM [facility] Social History: Smoking Status (Most [...] 11, 2023 10:30 AM VA-TOBACCO FORMER USER [facility] Tobacco Use History This section includes a history of the smoking, or tobacco-related health factors, that were collected on or before the date of the Encounter. The data comes from the [place] facility where the Encounter took place. Date/Time Smoking Status/Tobacco Use Comment [facility] Jun 11, 2023 10:30 AM VA-TOBACCO QUIT 15 YRS OR MORE [facility] Feb 18, 2021 01:30 PM VA-TOBACCO NEVER USED [place] Jan 13, 2020 10:00 AM VA-TOBACCO NEVER USED [place] May 09, 2017 11:00 AM QUIT TOBACCO USE > 7 YEARS AGO does not smoke [facility] July 18, 2016 10:35 AM LIFETIME NON-TOBACCO USER [place] May 11, 2015 10:13 AM QUIT TOBACCO USE > 7 YEARS AGO [facility] Jan 27, 2005 09:24 AM HISTORY OF SMOKING 1987 [place] Feb 23, 2004 02:53 PM HISTORY OF SMOKING stopped tobacco 17 years ago [facility] Feb 23, 2004 02:53 PM QUIT TOBACCO USE > 7 YEARS AGO stopped tobacco 17 years ago [facility] Feb 14, 2001 09:55 AM HISTORY OF SMOKING [facility] Feb 14, 2001 09:55 AM NON-TOBACCO USER quit x 14yrs. [facility] Advance Directives: All historical and current Section Date Range: From patient's date of to the date document was created. This section includes ALL of a patient's completed or amended [place] Advance and Rescinded Directives. The entries below indicate that a directive exists for the patient, but an actual copy is not included with this document. The data comes from all [facility]. Date Advance Directives Provider Source Jun [...] enter Rx for CGM sensors. /hilton VELÁZQUEZ [facility] Clinical Pharmacist Practitioner Signed: 10/17/2023 10:22 Receipt Acknowledged By: 10/18/2023 16:35 /devon/ BONITA HELMS [facility] NURSE PRACTITIONER == --- Original Document --- 10/17/23 CONSULT REPORT/PRIOR AUTH FACILITY PADR: The medical record has been reviewed with regard to this restricted drug request. 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 He has a history of labile BG readings, recently 40s-500s with last A1c of 9.8%, and requires CGM for appropriate montoring and safe insulin dose adjustments. Currently followed by Endo provider and BG readings to be closely followed by [facility] interdisciplinary team to collaborate with specialist in the setting of complexity of disease state. [facility] PharmD to to provide education on CGM. The request is approved - A documented therapeutic failure of the preferred formulary alternative(s) exists Comment: fingersticks Time spent: 15 min /hilton VELÁZQUEZ [facility] Clinical Pharmacist Practitioner Signed: 10/17/2023 10:21 CELE VELÁZQUEZ [place] Oct 17, 2023 09:59 AM PHARMACY CONSULT: LOCAL TITLE: CONSULT REPORT/PRIOR AUTH FACILITY PADR STANDARD TITLE: PHARMACY CONSULT DATE OF NOTE: OCT 17, 2023@09:59 ENTRY DATE: OCT 17, 2023@10:00:01 AUTHOR: CELE VELÁZQUEZ COSIGNER: URGENCY: STATUS: COMPLETED CONSULT REPORT/PRIOR AUTH FACILITY PADR Has ADDENDA The medical record has been reviewed with regard to this restricted drug request. 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 He has a history of labile BG readings, recently 40s-500s with last A1c of 9.8%, and requires CGM for appropriate montoring and safe insulin dose adjustments. Currently followed by Endo provider and BG readings to be closely followed by [facility] interdisciplinary team to collaborate with specialist in the setting of complexity of disease state. [facility] PharmD to to provide education on CGM. The request is approved - A documented therapeutic failure of the preferred formulary alternative(s) exists Comment: fingersticks Time spent: 15 min /hilton VELÁZQUEZ [facility] Clinical Pharmacist Practitioner Signed: 10/17/2023 10:21 10/17/2023 ADDENDUM STATUS: COMPLETED Please enter Rx for CGM sensors. /devon/ CELE VELÁZQUEZ [facility] Clinical Pharmacist Practitioner Signed: 10/17/2023 10:22 Receipt Acknowledged By: * AWAITING SIGNATURE * BONITA HELMS SARAH J [place]
== END 2024-07-29 14:35 | disposition home or self-care (01) ==
LOC: HO.HKAS 13:50
PROVIDERS: PCP Internal Medicine; Visit Provider Internal Medicine Nephrology
DX: N18.31 Chronic kidney disease, stage 3a (principal); I10 Essential (primary) hypertension
CPT/HCPCS: 99214

== ENCOUNTER → 2024-07-29 13:49 | Outpatient (BNVA) | payer MEDICARE, SELFPAY | PROVIDERS: PCP Internal Medicine; Visit Provider Internal Medicine Nephrology | DX: I12.9 Hypertensive chronic kidney disease with stage 1 through stage 4 chronic kidney disease, or unspecified chronic kidney disease (principal); N18.30 Chronic kidney disease, stage 3 unspecified; Z96.41 Presence of insulin pump (external) (internal); Z79.4 Long term (current) use of insulin | CPT/HCPCS: 99212 ==

== ENCOUNTER 2024-12-02 11:03 | Outpatient (AMB) | payer MEDICARE, SELFPAY ==
--- NOTE | 2024-12-02 11:16 | HO.NEPHOV_ITS ---
Vital Signs 12/02/24 11:19 Height 5 ft 6 in Weight 171 lb 4 oz BMI 27.6 BP 100/50 L Blood Pressure Location Lt brachial Position Sitting Pulse 51 Pulse Source Pulse Oximeter Pulse Oximetry (%) 96 Oxygen Delivery Method Room Air Intake Visit Reasons: 4 mo follow up-[facility] Back Tacker Required: No Accompanied by: Spouse Allergies No Known Allergies Allergy (Verified 12/02/24 11:19) HPI Comments Details: I had the pleasure of seeing Tay in follow-up of his chronic kidney disease. He has history of Whipples. His BP has been running low. His blood sugar is better controlled. He is on insulin pump. He avoids nonsteroidal anti- inflammatories. He denies nausea, vomiting, diarrhea, chest pain, shortness of breath, proximal nocturnal dyspnea, orthopnea, hematuria, urinary symptoms . He has been having edema. His serum creatinine has gone up from baseline [facility] Medical History (Updated 12/02/24 @ 11:37 by Winston Comer MD) Hypertension CKD (chronic kidney disease) stage 3, GFR 30-59 ml/min Surgical History H/O repair of rotator cuff History of carpal tunnel release History of hernia repair S/P triple vessel bypass History of back surgery History of knee replacement History of surgery on lower extremity Family History Mother Stroke Father Heart attack Social History Alcohol intake: never Patient Tobacco Use Status: Former Tobacco user Review of Systems Const All systems reviewed & are unremarkable except as noted in HPI and below Physical Exam Vital Signs: Last Vital Signs Pulse 51 12/02/24 11:19 BP 100/50 L 12/02/24 11:19 Pulse Ox 96 12/02/24 11:19 Oxygen Delivery Method Room Air 12/02/24 11:19 BMI result Body Mass Index 27.6 Const General: comfortable and no acute distress Orientation/consciousness: patient oriented x3 HEENT Head: Yes normocephalic Mouth: Normal oral and palatal mucosa present Eyes EOM: EOMs intact bilaterally Neck Neck: Yes supple Resp Auscultation: clear to auscultation bilaterally Cardio Jugular venous distension: no JVD Rate: regular rate GI Palpation (GI): Soft to palpation Auscultation: normal bowel sounds General: Yes no CVA tenderness Back/Spine/Pelvis Back: no CVA tenderness Skin General skin exam: no rashes or lesions noted Neuro General: patient oriented x3 and moves all extremities Extrem General: Yes edema Assessment & Plan Assessment & Plan (1) AGUILA (acute kidney injury): Code(s): N17.9 - Acute kidney failure, unspecified Category: Medical (2) CKD (chronic kidney disease) stage 3, GFR 30-59 ml/min: Code(s): N18.30 - Chronic kidney disease, stage 3 unspecified Category: Medical Qualifiers: Chronic kidney disease stage 3 subtype: stage 3a (GFR 45-59) Qualified Code(s): N18.31 - Chronic kidney disease, stage 3a (3) Hypertension: Code(s): I10 - Essential (primary) hypertension Category: Medical Qualifiers: Hypertension type: primary hypertension Qualified Code(s): I10 - Essential (primary) hypertension (4) Edema: Code(s): R60.9 - Edema, unspecified Category: Medical Qualifiers: Edema type: localized Qualified Code(s): R60.0 - Localized edema Plan He has CKD stage 3. His renal functions are marginally worse with low BP's . I D/Srinath his Amlodipine. I started him on lasix 20 mg daily for 10 days. I asked him to increase hydration. He does not have any proteinuria. He is on statins. His volume status is optimal. I did not change any other medications . Follow-up lab work ordered. Follow-up appointment given Orders: Orders Creatinine 3 Weeks N17.9 - Acute kidney failure, unspecified, N18.31 - Chronic kidney disease, stage 3a, R60.0 - Localized edema Blood Urea Nitrogen 3 Weeks N17.9 - Acute kidney failure, unspecified, N18.31 - Chronic kidney disease, stage 3a, R60.0 - Localized edema Electrolytes 3 Weeks N17.9 - Acute kidney failure, unspecified, N18.31 - Chronic kidney disease, stage 3a, R60.0 - Localized edema Medications: New furosemide (Lasix) 20 mg PO DAILY 10 tabs 0RF Coding Level of Care Code Est Pt Level 4 (78951) Diagnoses AGUILA (acute kidney injury) N17.9 Stage 3a chronic kidney disease N18.31 Chronic kidney disease stage 3 subtype: stage 3a (GFR 45-59) Primary hypertension I10 Hypertension type: primary hypertension Localized edema R60.0 Edema type: localized
[2024-12-02 11:19] VITALS: BP 100/50; PULSE 51; O2SAT 96; BMI 27.6
--- OUTSIDE RECORDS SUMMARY | 2024-12-02 13:45 | XMS_ITS | Patient Health Record ---
[facility] Address [address] [facility] [place] [address] Care Team Providers Care Teacher Kindergarten Name Role Phone Litzy DUMONT, William Primary Care Provider Hortensia Osborne Unavailable [phone] Allergies Allergen (clinical drug ingredient) Drug/Non Drug Allergy documented on EMR Reaction Allergy Type Onset Date Status Guaifenesin peeling Drug Allergy Activ e Results Component Value Reference Range Notes HEMOGLOBIN A1C (GLYCOHEMOGLO BIN) Reviewed date:08/05/2024 11:07:58 AM Interpretation: Performing Lab: Notes/Report: HEMOGLOBIN A1C % (HH) 7.5 HEMOGLOBIN A1C (GLYCOHEMOGLO BIN) Reviewed date:04/02/2024 01:18:11 PM Interpretation: Performing Lab: Notes/Report: HEMOGLOBIN A1C % (HH) 8.0 Reason For Referral No Information Medications Medication SIG (Take, Route, Frequency, Duration) Notes Start Date End Date Status Sertraline HCl 100 MG 1 tablet Orally Active Metoprolol Tartrate 25 MG 1 tablet with food Orally Twice a day Active Multivitamin Active Creon 24958-68333 UNIT Orally Active Atorvastatin Calcium 80 MG 1 tablet Oral ly Once a day Active Cholecalciferol Not- Taking PreserVision AREDS 2 Active Zenpep 52864 UNIT as directed Orally Not-Taking Probiotic Not-Taking Amoxicillin Not-Taki ng ALPRAZolam 0.5 MG 1 tablet Orally Thre e times a day Not-Taking Fish Oil 1000 MG 1 capsule with a little l Orally Once a day; Duration: 30 day(s) Not-Taking oxyCODONE HCl 5 MG 1 tablet Orally ever y 6 hrs Not-Taking Diltiazem HCl Coated Beads 180 MG 1 capsule Orally Once a day; Duration: 30 day(s) Not-Taking Citalopram Hydrobromide 40 MG 1 tablet Orally Once a day; Duration: 30 day(s) Not-Taking Pravastatin Sodium 20 MG 1 tablet Orally Once a day; Duration: 30 day(s) Not-Taking Vitamin D Active Extra-Depth Diabetic Shoes with 3 Pair Custom heat-molded multi-density innersoles . for 1 year . Dx:hammertoes and calloused lesions; Duration: . Active Insulin Active Gabapentin Not-Takin g Tamsulosin HCl Activ e Aspirin 81 MG 1 tablet Orally Once a day; Duration: 30 day(s) Not-Taking Myrbetriq 50 MG 1 tablet Orally Once a day; Duration: 30 day(s) Not-Taking Lisinopril 2.5 MG Orally No t-Taking Clopidogrel Bisulfate 75 MG 1 tablet Ora lly Once a day Not-Taking rifAMPin Not-Taking Doxycycline Not-Taki ng Lisinopril 2.5 MG 1 tablet Orally Once a day; Duration: 30 day(s) Not-Taking Vancomycin Not-Takin g Immunizations Vaccine Route Administration Date Status Comme nts Influenza Unknown 11/25/2014 Administered Influenza Unknown 12/15/2015 Administered Influenza Unknown 11/13/2016 Administered Influenza Unknown 12/07/2017 Administered Influenza Unknown 12/11/2018 Administered Influenza Unknown 12/14/2022 Administered Influenza Unknown 12/26/2023 Administered COVID-19 Moderna Vaccine Unknown 12/17/2020 Administered [...] Problem Status W/U Status Risk Notes Problem Acquired hammer toe of right foot (9701070283309569 ) Other hammer toe(s) (acquired), right foot (M20.41) Active confirmed Problem Acquired hammer toe of left foot ([id number] ) Other hammer toe(s) (acquired), left foot (M20.42) Active confirmed Problem Polyneuropathy due to type 2 diabetes mellitus (134767163) Type 2 diabetes mellitus with diabetic polyneuropathy (E11.42) Active confirmed Vital Signs Blood pressure diastolic 80 mm Hg 10/07/2024 Height 5 ft 7 in in 10/07/2024 Blood pressure systolic 130 mm Hg 10/07/2024 Weight 158 lbs 10/07/2024 BMI 24.74 kg/m2 10/07/2024 Procedures Procedure Date Ordered Date Performed Result Body Sit e 45473-BOCD SKIN LESIONS, 2 TO 4 01/02/2024 N/A Q0259-NELVGFAB DYSTROPHIC NAILS ANY # 01/02/2024 N/A 41367-VQZI SKIN LESIONS, 2 TO 4 04/02/2024 N/A Y0041-EWFQGJBQ DYSTROPHIC NAILS ANY # 04/02/2024 N/A 30336-MROA SKIN LESIONS, 2 TO 4 06/03/2024 N/A C5160-CAWICGAZ DYSTROPHIC NAILS ANY # 06/03/2024 N/A 90102-Qqaldtmv Plate 08/05/2024 N/A 65798-VZJN SKIN LESIONS, 2 TO 4 08/05/2024 N/A G5711-HXNRHNMX DYSTROPHIC NAILS ANY # 08/05/2024 N/A 02601-TCKF SKIN LESIONS, 2 TO 4 10/07/2024 N/A D4355-USCSKJAL DYSTROPHIC NAILS ANY # 10/07/2024 N/A Encounters Encounter Location Date Provider Diagnosis Luiz Campa [address] [place] [address] [place] [address] 01/02/2024 Hortensia Black Type 2 diabetes katty itus with diabetic polyneuropathy E11.42 Luiz Sinhaiatrdiane aCmpa [address] [place] [address] [place] [address] 04/02/2024 Hortensia Black Type 2 diabetes katty itus with diabetic polyneuropathy E11.42 Luiz Campa [address] [place] [address] [place] [address] 06/03/2024 Hortensia Black Type 2 diabetes katty itus with diabetic polyneuropathy E11.42 [facility] [place] [address] 08/05/2024 Hortensia Black Type 2 diabetes katty itus with diabetic polyneuropathy E11.42 and Ingrown nail L60.[address] [facility] [place] [address] 10/07/2024 Hortensia Black Type 2 diabetes katty itus with diabetic polyneuropathy E11.42 ; Other hammer toe(s) (acquired), right foot M20.41 and Other hammer toe(s) (acquired), left foot M20.42 Assessments Encounter Date Diagnosis (ICD Code) Assessment Notes Treatment Notes Treatment Clinical Notes Section Notes 01/02/2024 Type 2 diabetes mellitus with diabetic polyneuropathy (ICD-10 - E11.42) 04/02/2024 Type 2 diabetes mellitus with diabetic polyneuropathy (ICD-10 - E11.42) 06/03/2024 Type 2 diabetes mellitus with diabetic polyneuropathy (ICD-10 - E11.42) 08/05/2024 Type 2 diabetes mellitus with diabetic polyneuropathy (ICD-10 - E11.42) 10/07/2024 Other hammer toe(s) (acquired), right foot (ICD-10 - M20.41) Patient Educated with: DIABETIC FOOT CARE INSTRUCTIONS. pdf (DIABETIC FOOT CARE INSTRUCTIONS. pdf) 10/07/2024 Type 2 diabetes mellitus with diabetic polyneuropathy (ICD-10 - E11.42) 10/07/2024 Other hammer toe(s) (acquired), left foot (ICD-10 - M20.42) 08/05/2024 Ingrown nail (ICD-10 - L60.0) Plan Of Treatment Pending Test Test Name Order Date 61084-Szph Destruction, -04/10/2014 64441-Xqdz Destruction, 03-2505/26/2014 46535-Tipg Destruction, 03-2508/07/2014 46471-Sqmc Destruction, 03-2510/16/2014 30757-Ealxypmy Plate 10/16/2014 85425-Pmnopwiy Plate 08/07/2014 71249-Yyvyswjq Plate 07/16/2015 79514-Cqobactg Plate 09/24/2015 64946-Azbhjveo Plate 12/03/2015 31795-Otbycczy Plate 02/16/2016 77204-Qhvevktc Plate 05/31/2016 04780-Lvdissbm Plate 06/25/2018 07923-Tblphgoz Plate 09/25/2018 13769-Wdwtsqkw Plate 03/21/2019 43697-Vrnkndlv Plate 07/22/2019 95834-Himiikvc Plate 05/26/2014 47341-Gbxkuxjg Plate 12/12/2013 62029-Bglocelf Plate 02/24/2014 25229-Rtppdxkk Plate 02/25/2013 89810-Tdottzqj Plate 05/06/2013 33467-Rtfkwwjd Plate 07/22/2013 82017-Nudaoccd Plate 09/30/2013 07657-Mnncnmsa Plate 09/28/2011 82395-Ksixlqxn Plate 12/28/2011 85993-Aonipjgl Plate 03/28/2012 22604-Iuisiigm Plate 07/09/2012 94560-Csrpiztk Plate 09/17/2012 99521-Ywqvpqea Plate 12/17/2012 32215-Qiqymntv Plate 04/07/2020 91222-Bpiglsbb Plate 06/30/2020 40687-Ruyvjyej Plate 11/23/2020 38524-Yodphzbf Plate 05/27/2021 45907-Jfzoemgi Plate 11/09/2021 79858-Zrpsttag Plate 09/01/2022 18341-Beedxmdo Plate 08/05/2024 05080-Cddkuaxy Plate Each Additional 02/2020 49537- Debride <25 sq cm 12/28/2020 59505- Debride <25 sq cm 02/15/2021 71865- Debride <25 sq cm 12/17/2012 83174- Debride <25 sq cm 09/17/2012 16750- Debride <25 sq cm 07/09/2012 14094- Debride <25 sq cm 03/28/2012 65895- Debride <25 sq cm 09/28/2011 73094- Debride <25 sq cm 12/28/2011 29519- Debride <25 sq cm 04/04/2011 15833- Debride <25 sq cm 07/07/2011 14656- Debride <25 sq cm 09/30/2013 56109- Debride <25 sq cm 07/22/2013 25761- Debride <25 sq cm 05/06/2013 17113- Debride <25 sq cm 02/25/2013 17630- Debride <25 sq cm 02/24/2014 24474- Debride <25 sq cm 12/12/2013 53959- Debride <25 sq cm 05/26/2014 02517- Debride <25 sq cm 08/07/2014 49339- Debride <25 sq cm 05/31/2016 60371- Debride <25 sq cm 02/16/2016 21924- Debride <25 sq cm 12/03/2015 67727- Debride <25 sq cm 09/24/2015 00071- Debride <25 sq cm 03/02/2015 88367- Debride <25 sq cm 05/04/2015 55894- Debride <25 sq cm 07/16/2015 89282- Debride <25 sq cm 10/16/2014 83962- Debride <25 sq cm 11/13/2014 45829- Debride <25 sq cm 12/11/2014 31332- Debride <25 sq cm 12/29/2014 38715 I&D ABSCESS- SIMPLE,SINGLE 015 50690 I&D ABSCESS- SIMPLE,SINGLE 014 36882 I&D ABSCESS- SIMPLE,SINGLE 015 25852 I&D ABSCESS- SIMPLE,SINGLE 015 27307 I&D ABSCESS- SIMPLE,SINGLE 013 49464 I&D ABSCESS- SIMPLE,SINGLE 013 11374 I&D ABSCESS- SIMPLE,SINGLE 013 18153-JDLN SKIN LESIONS, 2 TO 4 01/14/20 11 76025-WKQB SKIN LESIONS, 2 TO 4 05/06/19 14 35352-YOZA SKIN LESIONS, 2 TO 4 07/23/19 14 48491-DXVH SKIN LESIONS, 2 TO 4 10/01/19 14 04390-LXPW SKIN LESIONS, 2 TO 4 05/27/19 15 33981-PAJX SKIN LESIONS, 2 TO 4 08/08/19 15 73567-GXFE SKIN LESIONS, 2 TO 4 12/13/19 14 63123-PNSJ SKIN LESIONS, 2 TO 4 02/25/20 14 24475-ZVFD SKIN LESIONS, 2 TO 4 03/02/20 15 74298-YEHZ SKIN LESIONS, 2 TO 4 07/16/19 16 48973-YAMP SKIN LESIONS, 2 TO 4 05/04/19 16 47207-JSFR SKIN LESIONS, 2 TO 4 10/17/19 15 08784-ACTQ SKIN LESIONS, 2 TO 4 12/30/19 15 09089-OIZR SKIN LESIONS, 2 TO 4 12/03/19 16 21793-ULMF SKIN LESIONS, 2 TO 4 02/16/20 16 98983-GKCJ SKIN LESIONS, 2 TO 4 06/01/19 17 08485-GBTF SKIN LESIONS, 2 TO 4 09/30/19 20 19589-TULW SKIN LESIONS, 2 TO 4 12/09/19 48473-RHFW SKIN LESIONS, 2 TO 4 04/07/19 78992-TJOZ SKIN LESIONS, 2 TO 4 03/21/19 48506-AKJI SKIN LESIONS, 2 TO 4 07/22/19 05899-QPIA SKIN LESIONS, 2 TO 4 12/28/19 20230-BMXH SKIN LESIONS, 2 TO 4 06/26/19 19 79345-IZJY SKIN LESIONS, 2 TO 4 09/26/19 19 29257-BYHW SKIN LESIONS, 2 TO 4 01/09/20 18 87620-UACL SKIN LESIONS, 2 TO 4 04/09/19 19 92128-BCLV SKIN LESIONS, 2 TO 4 08/31/19 17 11239-JJPQ SKIN LESIONS, 2 TO 4 12/20/19 17 37159-PIJP SKIN LESIONS, 2 TO 4 03/23/19 18 18319-ANFC SKIN LESIONS, 2 TO 4 06/02/19 18 54115-UTXY SKIN LESIONS, 2 TO 4 02/16/20 45444-JWHR SKIN LESIONS, 2 TO 4 05/28/19 58333-UWOY SKIN LESIONS, 2 TO 4 07/01/19 06012-CHAE SKIN LESIONS, 2 TO 4 09/09/19 61969-QYON SKIN LESIONS, 2 TO 4 11/24/19 39661-CKOH SKIN LESIONS, 2 TO 4 11/10/19 18851-AKZR SKIN LESIONS, 2 TO 4 08/27/19 22654-TDXL SKIN LESIONS, 2 TO 4 05/31/19 04326-DJFJ SKIN LESIONS, 2 TO 4 09/02/19 61400-RRGT SKIN LESIONS, 2 TO 4 12/02/19 07548-XJRT SKIN LESIONS, 2 TO 4 02/17/20 18233-CHSR SKIN LESIONS, 2 TO 4 06/04/19 60995-YNGH SKIN LESIONS, 2 TO 4 01/02/20 33040-ILEW SKIN LESIONS, 2 TO 4 04/02/19 16875-GOSC SKIN LESIONS, 2 TO 4 04/20/19 43225-BUNA SKIN LESIONS, 2 TO 4 06/22/19 20044-KXTA SKIN LESIONS, 2 TO 4 08/24/19 88450-VXUX SKIN LESIONS, 2 TO 4 10/31/19 39414-ZHIR SKIN LESIONS, 2 TO 4 10/08/19 82269-ASRE SKIN LESIONS, 2 TO 4 08/06/19 75551-MFTE SKIN LESION 07/07/2011 89443-URDS SKIN LESION 04/04/2011 47026-VKEQ SKIN LESION 12/28/2011 98704-LIBJ SKIN LESION 09/17/2012 49984-NFUT SKIN LESION 09/28/2011 61631-VIIT SKIN LESION 07/09/2012 73348-Ewme. Subungual Hematoma 3 38875-Jimb. Subungual Hematoma 1 64294-SDMI NAIL(S) 01/13/2011 35518-VUAF NAIL(S) 02/24/2014 38257-HMAC NAIL(S) 12/12/2013 18730-XQBC NAIL(S) 08/07/2014 69474-JPSP NAIL(S) 05/26/2014 01051-YZGO NAIL(S) 09/30/2013 01536-CNIH NAIL(S) 07/22/2013 80680-GZPX NAIL(S) 05/06/2013 85533-HLKY NAIL(S) 09/24/2015 39740-HHEO NAIL(S) 12/29/2014 08678-JNPA NAIL(S) 10/16/2014 25471-NCSC NAIL(S) 05/04/2015 50848-MKVY NAIL(S) 07/16/2015 29723-PCOH NAIL(S) 03/02/2015 H9969-BWIYXUCJ DYSTROPHIC NAILS ANY # Y5273-LANNXXOM DYSTROPHIC NAILS ANY # P9303-OSYRCKJM DYSTROPHIC NAILS ANY # I9925-UHGNKNMH DYSTROPHIC NAILS ANY # A5023-AKVPZEFD DYSTROPHIC NAILS ANY # G8202-JDEPXEHB DYSTROPHIC NAILS ANY # S7850-JKFUJMNE DYSTROPHIC NAILS ANY # W8466-JLQINDLW DYSTROPHIC NAILS ANY # F1527-MAXHPOLJ DYSTROPHIC NAILS ANY # H6210-PAAWJSSW DYSTROPHIC NAILS ANY # S2825-HYLECZUA DYSTROPHIC NAILS ANY # S5046-WAMWGDKG DYSTROPHIC NAILS ANY # G6987-TIPQBXJF DYSTROPHIC NAILS ANY # F6166-OWVBXIVU DYSTROPHIC NAILS ANY # D3172-APOJVKVU DYSTROPHIC NAILS ANY # D8118-BAPCRWVV DYSTROPHIC NAILS ANY # H0336-AXLAAZKO DYSTROPHIC NAILS ANY # C3751-JMXCEJSM DYSTROPHIC NAILS ANY # Y3778-OSXDPPEO DYSTROPHIC NAILS ANY # U2403-VBQHNRVX DYSTROPHIC NAILS ANY # Y4823-MZUNNYIV DYSTROPHIC NAILS ANY # V9975-BCHLJOWA DYSTROPHIC NAILS ANY # O2026-YUKQBJAM DYSTROPHIC NAILS ANY # J2990-OVGNAAHE DYSTROPHIC NAILS ANY # K1625-WZAJRDYY DYSTROPHIC NAILS ANY # E7870-XHPRNNPX DYSTROPHIC NAILS ANY # A9654-ZRCFXEBO DYSTROPHIC NAILS ANY # H8827-PDRPQWMY DYSTROPHIC NAILS ANY # V7186-EFCCVIJX DYSTROPHIC NAILS ANY # R9724-KCQMCZWK DYSTROPHIC NAILS ANY # E1365-FKMVNGLB DYSTROPHIC NAILS ANY # R5138-GMMGCYMX DYSTROPHIC NAILS ANY # G3492-DVVHMICE DYSTROPHIC NAILS ANY # I6803-JXNRJXWR DYSTROPHIC NAILS ANY # U8957-BRPPJDIM DYSTROPHIC NAILS ANY # T9407-LMWAGAPL DYSTROPHIC NAILS ANY # C4715-RWDACCDV DYSTROPHIC NAILS ANY # I2228-QUXNCMSK DYSTROPHIC NAILS ANY # W6089-AWHDRJNL DYSTROPHIC NAILS ANY # A8072-FIUVXDKB DYSTROPHIC NAILS ANY # M1975-QYHPJVNP DYSTROPHIC NAILS ANY # G6816-NMVLFWLH DYSTROPHIC NAILS ANY # B1891-LMWGVVVR DYSTROPHIC NAILS ANY # P3157-EBULDTCV DYSTROPHIC NAILS ANY # Y0973-EKGXMXPD DYSTROPHIC NAILS ANY # F0117-PKIKMOGE DYSTROPHIC NAILS ANY # J7066-WBYTZZED DYSTROPHIC NAILS ANY # 14259-NJXZIFOZ OF HEMATOMA/FLUID 018 Next Appt Details Provider Name:Hortensia Sparrow , 12/09/2024 11:00:00 AM, [address] [facility], [place], [address], Provider Name:Hortensia Sparrow , 02/10/2025 11:15:00 AM, [address] [facility], [place], [address], Insurance Providers Payer Name Payer Address Payer Phone Subscriber Number Group Number Insured Name Patient Relationship to Insured Coverage Start Date Coverage End Date Medicare National [employer] [address] [place] [address] [id number] Tay Elizabeth Self - patient is the insured [employer] [address] [place] [address] [id number] Tay Elizabeth Self - patient is the [...] left leg 10/16/2022 [facility]- tumor, 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
--- OUTSIDE RECORDS SUMMARY | 2024-12-02 13:45 | XMS_ITS | Encounter Summary ---
Author Organization [facility] Address [address] [place] [address] [place] [address] Phone Care Team Providers Care Conference Planning Manager Name Role Phone William Mcghee DO Primary Care Provider [phone] Encounter Details Date Type Department Care Team (Late st Contact Info) Description 06/28/2017 Procedure Pass [facility] Rad[facility] [address] [place] [address] Social History Tobacco Use Types Packs/Day Years Used Date Smoking Tobacco: Former Cigarettes 2 15 1 972 - 1987 Smokeless Tobacco: Never Alcohol Use Standard Drinks/Week Comments Yes 0 (1 standard drink = 0.6 oz pur e alcohol) 1 beer per week or less Sex and Gender Information Value Date Recorded Sex Assigned at Male 03/19/2017 9:29 AM EST Legal Sex Male 6:54 PM EST Gender Identity Male 03/19/2017 9:29 AM [...] documented as of this encounter Care Teams Conference Planning Manager Relationship Specialty Start Date End Date William Mcghee DO [address] [place] [address] [address] [place] [address] PCP - General Internal Medicine 06/28/17 documented as of this encounter Additional Source Comments The information contained in this document represents components of the legal health record. It is not the complete legal health record.[facility]
--- OUTSIDE RECORDS SUMMARY | 2024-12-02 13:45 | XMS_ITS | Encounter Summary ---
Author Organization [facility] Address [address] [facility] [address] [place] [address] Phone Care Team Providers Care Mold Swabber Name Role Phone Fidencio Johnson DO Primary Care Provider Un available William Mcghee DO Primary Care Provider [phone] Encounter Details Date Type Department Care Team (Late st Contact Info) Description 01/15/2017 Procedure Pass [facility] Periop 6th floor [address] [place] [address] Social History Tobacco Use Types Packs/Day Years Used Date Smoking Tobacco: Former Cigarettes 2 15 1 972 - 1986 Smokeless Tobacco: Never Alcohol Use [...] documented as of this encounter Care Teams Mold Swabber Relationship Specialty Start Date End Date Fidencio Johnson DO PCP - General Internal Medicine 07/19/16 06/27/17 William Mcghee DO [address] [place] [address] [address] [place] [address] PCP - General Internal Medicine 06/28/17 documented as of this encounter Additional Source Comments The information contained in this document represents components of the legal health record. It is not the complete legal health record.[facility]
--- OUTSIDE RECORDS SUMMARY | 2024-12-02 13:45 | XMS_ITS | Encounter Summary ---
Author Organization [facility] Address [address] [address] Phone Care Team Providers Care Car Clerk Pullman Name Role Phone William Mcghee DO Primary Care Provider [phone] Encounter Details Date Type Department Care Team (Late st Contact Info) Description 03/28/2019 Transcribe Orders [facility] [address] [address] [address] Marrufo [address] [place] [address] [email or web address] Social History Tobacco Use Types Packs/Day Years Used Date Smoking Tobacco: Former Cigarettes 2 26 03 972 1986 Smokeless Tobacco: Never Alcohol Use [...] (No Interpretation) (03/28/2019 9:37 AM EST) Narrative [facility] - 03/28/2019 9:37 AM EST This study is for PACS storage only and not for interpretation. us Maulik Velasquez MD IMG OUTSIDE IMAGING W/OUT INTERPRETATION Final Result [facility] documented in this encounter Visit Diagnoses [...] documented as of this encounter Care Teams Car Clerk Pullman Relationship Specialty Start Date End Date William Mcghee DO [address] [place] [address] PCP - General Internal Medicine 06/28/17 documented as of this encounter Additional Source Comments The information contained in this document represents components of the legal health record. It is not the complete legal health record.[facility]
--- OUTSIDE RECORDS SUMMARY | 2024-12-02 13:45 | XMS_ITS | Encounter Summary ---
Author Organization [facility] Address [address] [place] [address] Phone Care Team Providers Care Control Technician Name Role Phone William Mcghee DO Primary Care Provider [phone] Encounter Details Date Type Department Care Team (Late st Contact Info) Description 12/11/2019 Procedure Pass [facility] Periop [address] [place] [address] Social History Tobacco Use Types Packs/Day Years [...] 9:29 AM EST Sexual Orientation Straight 03/19/2017 9 :29 AM EST documented as of this encounter [...] documented as of this encounter Care Teams Control Technician Relationship Specialty Start Date End Date William Mcghee DO [address] [place] [address] 18 [place] [address] PCP - General Internal Medicine 06/28/17 documented as of this encounter Additional Source Comments The information contained in this document represents components of the legal health record. It is not the complete legal health record.[facility]
--- OUTSIDE RECORDS SUMMARY | 2024-12-02 13:45 | XMS_ITS | Clinical Summary ---
Author Organization [address] [facility] Address [address] [place] [phone] Phone Care Team Providers Care Personal Lines Account Manager Name Role Phone William Mcghee DO Primary Care Provider [phone] Allergies Active Allergy Reactions Criticality Noted Date [...] capsule Take by mouth. A ctive PANCREATIN-LIPA [id number] ORAL Pancrelipase, Mwg-Curi-Obtu, 14736-[address] units CAPSULE ENTERIC COATED PARTICLES Take by mouth. - Oral Active zolpidem (AMBIEN) 10 [...] on medical therapy. 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 PROCEDURE: HISTORICAL CABG; COMMENT: 3 vessel CARPAL TUNNEL RELEASE Right PROCEDURE: HISTORICAL CARPAL TUNNEL REL OTHER SURGICAL HISTORY 2007 Left PROCEDURE: NV ABLATION RENAL TUMOR UNILATERAL PERQ CRYOTHERAPY; COMMENT: Cryotherapy Left Renal Mass BACK SURGERY PROCEDURE: HISTORICAL BACK SURGERY; COMMENT: x 3 OTHER SURGICAL HISTORY PROCEDURE: HISTORY OTHER; COMMENT: testicular surgery TOTAL KNEE ARTHROPLASTY 12/24/2015 Left PROCEDURE: HISTORICAL TOTAL KNEE REPLACE CHOLECYSTECTOMY PROCEDURE: HISTORICAL CHOLECYSTECTOMY OTHER SURGICAL HISTORY Bilateral PROCEDURE: HISTORY OTHER; COMMENT: Hernia Repair OTHER SURGICAL HISTORY PROCEDURE: NV MANIPULATION KNEE JOINT UNDER GENERAL ANESTHESIA; COMMENT: x 2, 05/22/16 & 04/21/16. No cultures taken OTHER SURGICAL HISTORY PROCEDURE: RESECTION/DEBRIDEMENT OF PANCREAS; COMMENT: Pancreatic debridement 2008 & 2009 [place] OTHER SURGICAL HISTORY PROCEDURE: NV TENDON SHEATH INCISION; COMMENT: trigger finger release ROTATOR CUFF REPAIR Right PROCEDURE: HISTORICAL ROTATOR CUFF REPAIR OTHER SURGICAL HISTORY 01/23/2016 Left PROCEDURE: NV ARTHRP KNEE TIBIAL PLATEAU DBRDMT&PRTL SYNVCT; COMMENT: and 01/17/16 with polyethylene liner exchange CARDIAC CATHETERIZATION 1986 PROCEDURE: HISTORICAL CARDIAC CATH; COMMENT: with stent placement OTHER SURGICAL HISTORY PROCEDURE: NV UNLISTED LAPAROSCOPY PROCEDURE BILIARY TRACT; COMMENT: biliary bypass Medical History Medical History Date Comments Carpal tunnel syndrome 04/09/2018 DX:Carpal tunnel syndrome; COMMENT: Right release Chronic infection of left kn ee ([facility] V24, [facility] V28) 04/09/2018 DX:Chronic infection of lef t knee ([facility]); COMMENT: MRSA Hearing loss 04/09/2018 DX:Hearing loss; [...] (diabetes mellitus), type 2 with neurological complications ([facility] V24, [facility] V28) 04/09/2018 DX:DM (diabetes mellitus), t ype 2 with neurological complications ([facility]); COMMENT: Insulin pump Osteoarthritis 04/09/2018 DX:Osteoarthriti s Family History Medical History Relation Name Comments CABG Brother CVA Heart attack Father age 50 of [place], diabetes Stroke Mother age 50 of CVA [...] 05/18/1950 Diabetes: Annual Retina Eye Exam 05/18/1950 Falls Risk Assessment 02/12/2022 Medicare Annual Wellness Visit 02/12/2022 Social Influencers of Health Screening 02/12/2022 Diabetes: Annual Urine Albumin-Creatinine Ratio (uACR) 02/23/2022 Diabetes: Blood Sugar Control Test (HGBA1C) 02/23/2022 Depression Screening 03/12/2024 COVID-19 Vaccine ( season) 2024 12/12/2023, 11/21/2021, 12/17/2020, Additional history exists Influenza Vaccine (#1) 2024 , 01/10/2023, 12/14/2022, Additional history exists Diabetes: Annual GFR (Glomerular Filtration Rate) 11/05/2025 11/05/2024, 01/24/2024, 06/12/2017 Hypertension/CHF/CAD Annual BMP Blood Test 11/05/2025 11/05/2024, 01/24/2024, 06/12/2017 Cholesterol Screening (Lipid Panel) 11/05/2029 11/05/2024, 01/24/2024 DTaP,Tdap,and Td Vaccines (5 - Td or Tdap) 10/10/2032 10/10/2022, 03/24/2022, 12/11/2011, Additional history exists Pneumococcal Vaccine: 50+ Years Completed 06/17/2015, 09/11/2013, 03/12/2009 Zoster Vaccines Completed 02/18/2021, 0710/2020, 11/12/2012 RSV Immunization Adult Patients Completed 01/22/2024 HIB [...] Procedure Name Priority Date/Time Associated Diagnosis Comments CBC WITH AUTO DIFFERENTIAL Routine 11/05/2024 10:56 AM EDT Essential hypertension, malignant Hyperlipemia Chronic kidney disease (CKD) stage G3a/A1, moderately decreased glomerular filtration rate (GFR) between 45-59 mL/min/1.73 square meter and albuminuria creatinine ratio les* (CMS/HCC V24, CMS/HCC V28) Enlarged prostate with urinary obstruction COMPREHENSIVE METABOLIC PANEL Routine 11/05/2024 10:56 AM EDT Essential hypertension, malignant Hyperlipemia Chronic kidney disease (CKD) stage G3a/A1, moderately decreased glomerular filtration rate (GFR) between 45-59 mL/min/1.73 square meter and albuminuria creatinine ratio les* (CMS/HCC V24, CMS/HCC V28) Enlarged prostate with urinary obstruction CBC AND DIFFERENTIAL Routine 11/05/2024 10:56 AM EDT Essential hypertension, malignant Hyperlipemia Chronic kidney disease (CKD) stage G3a/A1, moderately decreased glomerular filtration rate (GFR) between 45-59 mL/min/1.73 square meter and albuminuria creatinine ratio les* (CMS/HCC V24, CMS/HCC V28) Enlarged prostate with urinary obstruction THYROID STIMULATING HORMONE Routine 11/05/2024 10:56 AM EDT Essential hypertension, malignant Hyperlipemia Chronic kidney disease (CKD) stage G3a/A1, moderately decreased glomerular filtration rate (GFR) between 45-59 mL/min/1.73 square meter and albuminuria creatinine ratio les* (CMS/HCC V24, CMS/HCC V28) Enlarged prostate with urinary obstruction PROSTATE SPECIFIC ANTIGEN SCREEN Routine 11/05/2024 10:56 AM EDT Essential hypertension, malignant Hyperlipemia Chronic kidney disease (CKD) stage G3a/A1, moderately decreased glomerular filtration rate (GFR) between 45-59 mL/min/1.73 square meter and albuminuria creatinine ratio les* (CMS/HCC V24, CMS/HCC V28) Enlarged prostate with urinary obstruction Encounter for screening for malignant neoplasm of prostate LIPID PANEL WITH REFLEX TO DIRECT LDL Routine 11/05/2024 10:56 AM EDT Essential hypertension, malignant Hyperlipemia Chronic kidney disease (CKD) stage G3a/A1, moderately decreased glomerular filtration rate (GFR) between 45-59 mL/min/1.73 square meter and albuminuria creatinine ratio les* ([facility]/HCC V24, [facility] V28) Enlarged prostate with urinary obstruction from Last 3 Months Results * Prostate specific antigen screen (11/05/2024 10:56 AM EDT) Pathologist [facility] PSA 1.40 0.00 - 4.00 ng/mL LAB CHEMISTRY METHOD 11/05/2024 5:37 PM EDT [facility] Blood Venous blood specimen / Unknown Venipuncture / Unknown 11/05/2024 10:56 AM EDT 11/05/2024 10:56 AM EDT Narrative [facility] - 11/05/2024 5:37 PM EDT The Siemens Advia Talendaur Chemiluminescent Immunoassay is used. Results obtained with different assay methods or kits cannot be used interchangeably. Results cannot be interpreted as absolute evidence of the presence or absence of malignant disease. us Dedra Bowden NP LAB BLOOD ORDERABLES nal Result [facility] [address] [place] [address], * (ABNORMAL) Lipid panel with reflex to direct LDL (11/05/2024 10:56 AM EDT) Pathologist [facility] Cholesterol 85 0 - 200 mg/dL LAB CHEMISTRY METHOD 11/05/2024 4:46 PM EDT [facility] Triglycerides 115 0 - 150 mg/dL LAB CHEMISTRY METHOD 11/05/2024 4:46 PM EDT [facility] HDL 19(L) >=40 mg/dL LAB CHEMISTRY METHOD 11/05/2024 4:46 PM EDT [facility] LDL Calculated 43 0 - 100 mg/dL LAB CHEMISTRY METHOD 11/05/2024 4:46 PM EDT [facility] Comment:Estimated LDL Calcul ated using equation: Total cholesterol - HDL cholesterol - (Triglycerides/5) VLDL Cholesterol Will 23 mg/dL LAB CHEMISTRY METHOD 11/05/2024 4:46 PM EDT [facility] Non HDL Chol. (LDL+VLDL) 66 <145 mg/dL LAB CHEMISTRY METHOD 11/05/2024 4:46 PM EDT [facility] Chol/HDL Ratio 4.5(H) 0.0 - 4.4 LAB CHEMISTRY METHOD 11/05/2024 4:46 PM EDT [facility] Blood Venous blood specimen / Unknown Venipuncture / Unknown 11/05/2024 10:56 AM EDT 11/05/2024 10:56 AM EDT Dedra Bowden CHUCKING LATHE OPERATOR LAB BLOOD ORDERABLES Fi nal Result [facility] [address] [place] [address], * (ABNORMAL) CBC auto differential (11/05/2024 10:56 AM EDT) WBC 6.1 4.8 - 10.8 K/mcL LAB HEMETOLOGY METHOD 11/05/2024 2:46 PM EDT [facility] RBC 4.20(L) 4.50 - 5.50 M/mcL LAB HEMETOLOGY METHOD 11/05/2024 2:46 PM EDT [facility] Hemoglobin 11.9(L) 13.5 - 17.5 g/dL LAB HEMETOLOGY METHOD 11/05/2024 2:46 PM EDT [facility] Hematocrit 37.8(L) 42.0 - 54.0 % LAB HEMETOLOGY METHOD 11/05/2024 2:46 PM EDT [facility] MCV 89.6 79.0 - 98.0 FL LAB HEMETOLOGY METHOD 11/05/2024 2:46 PM EDT [facility] MCH 28.2 27.0 - 32.0 pcg LAB HEMETOLOGY METHOD 11/05/2024 2:46 PM T [facility] MCHC 31.5(L) 32.0 - 37.0 g/dL LAB HEMETOLOGY METHOD 11/05/2024 2:46 PM [facility] RDW 14.6 11.0 - 15.0 % LAB HEMETOLOGY METHOD 11/05/2024 2:46 PM EDT [facility] Platelets 139 130 - 400 K/mcL LAB HEMETOLOGY METHOD 11/05/2024 2:46 PM [facility] MPV 11.5(H) 7.0 - 11.0 FL LAB HEMETOLOGY METHOD 11/05/2024 2:46 PM [facility] NRBC 0.0 <1.0 % LAB HEMETOLOGY METHOD 11/05/2024 2:46 PM [facility] NRBC Absolute 0.00 <0.10 K/mcL LAB HEMETOLOGY METHOD 11/05/2024 2:46 PM [facility] Neutrophils Relative 65.5 % LAB HEMETOLOGY METHOD 11/05/2024 2:46 PM [facility] Lymphocytes Relative 20.5 % LAB HEMETOLOGY METHOD 11/05/2024 2:46 PM [facility] Monocytes Relative 10.7 % LAB HEMETOLOGY METHOD 11/05/2024 2:46 PM [facility] Eosinophils Relative 2.3 % LAB HEMETOLOGY METHOD 11/05/2024 2:46 PM [facility] Basophils Relative 0.7 % LAB HEMETOLOGY METHOD 11/05/2024 2:46 PM [facility] Immature Granulocytes Relative 0.3 % LAB HEMETOLOGY METHOD 11/05/2024 2:46 PM EDT [facility] Neutrophils Absolute 3.99 1.50 - 7.00 K/mcL LAB HEMETOLOGY METHOD 11/05/2024 2:46 PM EDT [facility] Lymphocytes Absolute 1.25 1.00 - 5.00 K/mcL LAB HEMETOLOGY METHOD 11/05/2024 2:46 PM EDT [facility] Monocytes Absolute 0.65 0.20 - 1.00 K/mcL LAB HEMETOLOGY METHOD 11/05/2024 2:46 PM EDT [facility] Eosinophils Absolute 0.14 0.00 - 0.50 K/mcL LAB HEMETOLOGY METHOD 11/05/2024 2:46 PM EDT [facility] Basophils Absolute 0.04 0.00 - 0.20 K/mcL LAB HEMETOLOGY METHOD 11/05/2024 2:46 PM EDT [facility] Immature Granulocytes Absolute 0.02 0.00 - 0.03 K/mcL LAB HEMETOLOGY METHOD 11/05/2024 2:46 PM EDT [facility] Blood Venous blood specimen / Unknown Venipuncture / Unknown 11/05/2024 10:56 AM EDT 11/05/2024 10:56 AM EDT Dedra Bowden CHUCKING LATHE OPERATOR LAB BLOOD ORDERABLES Fi nal Result [facility] [address] [place] [address], * Thyroid stimulating hormone (11/05/2024 10:56 AM EDT) TSH 3.51 0.40 - 4.00 mcIU/mL LAB CHEMISTRY METHOD 11/05/2024 6:04 PM EDT [facility] Blood Venous blood specimen / Unknown Venipuncture / Unknown 11/05/2024 10:56 AM EDT 11/05/2024 10:56 AM EDT us Dedra Bowden CHUCKING LATHE OPERATOR LAB BLOOD ORDERABLES Fi nal Result [facility] [address] [place] [address], [place] [phone] * (ABNORMAL) Comprehensive metabolic panel (11/05/2024 10:56 AM EDT) Sodium 141 133 - 145 mmol/L LAB CHEMISTRY METHOD 11/05/2024 5:04 PM [facility] Potassium 4.3 3.5 - 5.5 mmol/L LAB CHEMISTRY METHOD 11/05/2024 5:04 PM [facility] Chloride 107 96 - 110 mmol/L LAB CHEMISTRY METHOD 11/05/2024 5:04 PM [facility] CO2 29 21 - 32 mmol/L LAB CHEMISTRY METHOD 11/05/2024 5:04 PM [facility] Anion Gap 5 3 - 11 LAB CHEMISTRY METHOD 11/05/2024 5:04 PM [facility] Glucose 124(H) 70 - 100 mg/dL LAB CHEMISTRY METHOD 11/05/2024 5:04 PM [facility] BUN 33(H) 5 - 25 mg/dL LAB CHEMISTRY METHOD 11/05/2024 5:04 PM [facility] Creatinine 1.39(H) 0.70 - 1.30 mg/dL LAB CHEMISTRY METHOD 11/05/2024 5:04 PM [facility] eGFR 50(L) >=60 mL/min/1. 73m2 LAB CHEMISTRY METHOD 11/05/2024 5:04 PM [facility] Comment:Calculation based on the Chronic Kidney Disease Epidemiology Collaboration (CKD-EPI) equation refit without adjustment for race. BUN/Creatinine Ratio 23.7 LAB CHEMISTRY METHOD 11/05/2024 5:04 PM [facility] Calcium 8.5 8.5 - 10.5 mg/dL LAB CHEMISTRY METHOD 11/05/2024 5:04 PM EDT [facility] AST (SGOT) 107(H) 10 - 42 unit/L LAB CHEMISTRY METHOD 11/05/2024 5:04 PM EDT [facility] ALT (SGPT) 61(H) 10 - 60 unit/L LAB CHEMISTRY METHOD 11/05/2024 5:04 PM EDT [facility] Alkaline Phosphatase 93 42 - 121 unit/L LAB CHEMISTRY METHOD 11/05/2024 5:04 PM EDT [facility] Total Protein 6.7 6.0 - 8.0 g/dL LAB CHEMISTRY METHOD 11/05/2024 5:04 PM EDT [facility] Albumin 3.6 3.2 - 5.0 g/dL LAB CHEMISTRY METHOD 11/05/2024 5:04 PM EDT [facility] Total Bilirubin 0.4 0.0 - 1.4 mg/dL LAB CHEMISTRY METHOD 11/05/2024 5:04 PM EDT [facility] Blood Venous blood specimen / Unknown Venipuncture / Unknown 11/05/2024 10:56 AM EDT 11/05/2024 10:56 AM EDT Dedra Bowden NP LAB BLOOD ORDERABLES Fi nal Result [facility] [address] [place] [address], from Last 3 Months Insurance MEDICARE [facility] Care Teams Personal Lines Account Manager Relationship Specialty Start Date End Date William Mcghee DO [address] [place] [phone] PCP - General 01/22/13
--- OUTSIDE RECORDS SUMMARY | 2024-12-02 13:45 | XMS_ITS | Encounter Summary ---
Author Organization [facility] Address [address] [facility] [address] [place] [address] Phone Care Team Providers Care Is Architect Name Role Phone Fidencio Johnson DO Primary Care Provider Un available William Mcghee DO Primary Care Provider [phone] Encounter Details Date Type Department Care Team (Late st Contact Info) Description 05/15/2017 Procedure Pass BWF Periop 6th floor [address] [place] [address] Social History Tobacco Use Types Packs/Day Years [...] documented as of this encounter Care Teams Is Architect Relationship Specialty Start Date End Date Fidencio Johnson DO PCP - General Internal Medicine 07/19/16 06/27/17 William Mcghee DO [address] [place] [address] 18 [place] [address] PCP - General Internal Medicine 06/28/17 documented as of this encounter Additional Source Comments The information contained in this document represents components of the legal health record. It is not the complete legal health record.[facility]
--- OUTSIDE RECORDS SUMMARY | 2024-12-02 13:45 | XMS_ITS | Encounter Summary ---
Author Organization [facility] Address [address] [facility] [address] [place] [address] Phone Care Team Providers Care Business Intelligence Engineer Name Role Phone Fidencio Johnson DO Primary Care Provider Un available William Mcghee DO Primary Care Provider [phone] Encounter Details Date Type Department Care Team (Late st Contact Info) Description 01/22/2017 Procedure Pass BWF Periop 6th floor [address] [place] [address] Social History Tobacco Use Types Packs/Day Years [...] documented as of this encounter Care Teams Business Intelligence Engineer Relationship Specialty Start Date End Date Fidencio Johnson DO PCP - General Internal Medicine 07/19/16 06/27/17 William Mcghee DO [address] [place] [address] 18 [place] [address] PCP - General Internal Medicine 06/28/17 documented as of this encounter Additional Source Comments The information contained in this document represents components of the legal health record. It is not the complete legal health record.[facility]
--- OUTSIDE RECORDS SUMMARY | 2024-12-02 13:45 | XMS_ITS | Encounter Summary ---
Author Organization [facility] Address [address] [facility] [address] [place] [address] Phone Care Team Providers Care Set Up Technician Name Role Phone Fidencio Johnson DO Primary Care Provider Un available William Mcghee DO Primary Care Provider [phone] Encounter Details Date Type Department Care Team (Late st Contact Info) Description 10/09/2016 Procedure Pass BWF Periop 6th floor [address] [place] [address] Social History Tobacco Use Types Packs/Day Years [...] documented as of this encounter Care Teams Set Up Technician Relationship Specialty Start Date End Date Fidencio Johnson DO PCP - General Internal Medicine 07/19/16 06/27/17 William Mcghee DO [address] [place] [address] 18 [place] [address] PCP - General Internal Medicine 06/28/17 documented as of this encounter Additional Source Comments The information contained in this document represents components of the legal health record. It is not the complete legal health record.[facility]
--- OUTSIDE RECORDS SUMMARY | 2024-12-02 13:45 | XMS_ITS | Encounter Summary ---
Author Organization [facility] Address [address] [place] [address] Phone Care Team Providers Care Nut Threader Name Role Phone William Mcghee DO Primary Care Provider [phone] Encounter Details Date Type Department Care Team (Late st Contact Info) Description 06/28/2017 Procedure Pass [facility] Periop [address] [place] [address] Social History Tobacco Use Types Packs/Day Years [...] documented as of this encounter Care Teams Nut Threader Relationship Specialty Start Date End Date William Mcghee DO [address] [place] [address] 18 [place] [address] PCP - General Internal Medicine 06/28/17 documented as of this encounter Additional Source Comments The information contained in this document represents components of the legal health record. It is not the complete legal health record.[facility]
--- OUTSIDE RECORDS SUMMARY | 2024-12-02 13:46 | XMS_ITS | Clinical Summary ---
Author Organization [facility] Address [address] [facility] [address] [place] [address] Phone Care Team Providers Care General Hardware Salesperson Name Role Phone William Mcghee DO Primary Care Provider [phone] Allergies Active Allergy Reactions Criticality Noted Date [...] 2 (two) times a day Active pancrelipase, Rfu-Cmkt-Ewoa, (Creon) 35035-[address] units capsule Take 3 capsules by mouth [...] Visual Foot Exam 06/06/2021 Influenza Vaccine (#1) 2024 4, 01/10/2023, 11/20/2021, Additional history exists Diabetes: Ophthalmology Exam 11/27/2024 11/28/2023 Pneumococcal Vaccine: 50+ Years Completed 06/17/2015, 09/11/2013, 03/12/2009 Pneumococcal Vaccine: Peds (0 to 5 Years) and At-Risk Patients (6 to 49 Years) Discontinued 06/17/2015, 09/11/2013, 03/12/2009 Hepatitis B Vaccine Aged [...] 8.9 8.7 - 10.7 mg/dL eGFR Non-Afr [place]er 58 Uric Acid 5.2 MG/DL Hemoglobin A1C 9.2(A) 4.0 - 6.0 Alb/Creat Ratio, Ur 136.6 mg/g Creat Triglycerides 149 40 - 160 Cholesterol 139 0 - 200 HDL 29(A) 35 - 70 MG/DL LDL Calculated 80 0 - 160 mg/dL 09/07/2020 us Historical Provider LAB BLOOD ORDERABLES Janet l Result from Last 3 Months or Most Recently Relevant to Health Maintenance Insurance [facility] Medicare [facility] Medicare Care Teams General Hardware Salesperson Relationship Specialty Start Date End Date William Mcghee DO [address] [place] [address] PCP - General 03/22/20
--- OUTSIDE RECORDS SUMMARY | 2024-12-02 13:46 | XMS_ITS | Encounter Summary ---
Author Organization [facility] Address [address] [facility] [address] [place] [address] Phone Care Team Providers Care Consultant Teacher Name Role Phone Fidencio Johnson DO Primary Care Provider Un available William Mcghee DO Primary Care Provider [phone] Encounter Details Date Type Department Care Team (Late st Contact Info) Description 01/15/2017 Prep for Surgery [facility] PACU6 [address] [place] [address] Letty Peter, ANGEL [address] [facility] [address] [place] [address] [email or web address] Social History Tobacco Use Types Packs/Day Years [...] documented as of this encounter Care Teams Consultant Teacher Relationship Specialty Start Date End Date Fidencio Johnson DO PCP - General Internal Medicine 07/19/16 06/27/17 William Mcghee DO [address] [place] [address] 18 [place] [address] PCP - General Internal Medicine 06/28/17 documented as of this encounter Additional Source Comments The information contained in this document represents components of the legal health record. It is not the complete legal health record.[facility]
--- OUTSIDE RECORDS SUMMARY | 2024-12-02 13:46 | XMS_ITS | Encounter Summary ---
Author Organization [facility] Address [address] [address] Phone Care Team Providers Care Rag Washer Name Role Phone William Mcghee DO Primary Care Provider Encounter Details Date Type Department Care Team (Late st Contact Info) Description 04/05/2018 Transcribe Orders [facility] [address] [place] [address] Hubert Marrufo [address] [place] [address] [email or web address] Social History Tobacco Use Types Packs/Day Years Used Date Smoking Tobacco: Former Cigarettes 2 26 03 362 1986 Smokeless Tobacco: Never Alcohol Use Standard [...] (No Interpretation) (04/05/2018 12:00 PM EST) Narrative [facility] - 04/05/2018 12:00 PM EST This study [...] documented as of this encounter Care Teams Rag Washer Relationship Specialty Start Date End Date William Mcghee DO [address] [place] [address] PCP - General Internal Medicine 06/28/17 documented as of this encounter Additional Source Comments The information contained in this document represents components of the legal health record. It is not the complete legal health record.[facility]
--- OUTSIDE RECORDS SUMMARY | 2024-12-02 13:46 | XMS_ITS | Clinical Summary ---
Author Organization [facility] lin Address [address] [place] [address] Care Team Providers Care Relief Pilot Name Role Phone No, Pcp AREA FIELD WORKER Primary Care Provider Unavailabl e Immunizations Immunization Administration Dates Next Due Fluzone Trivalent High [...] Adults 18 yrs or above (or HM Modifier)([facility]) 05/18/1958 SDOH Screening Reminder: Anita gleason for all adults ([facility]) 05/18/1958 Tobacco Smoking Cessation: i n Adults excluding Women: Behavioral and Pharmacotherapy Interventions ([facility]) 05/18/1958 DTaP/Tdap/Td Vaccines ([facility]) (1 - Tdap) 05/18/1958 Pneumococcal Vaccination Scr eening: Patients 50+ yrs of age ([facility]) (1 of 1 - PCV) 05/18/1989 Zoster/Shingles Vaccine Seri es Screening: Adults aged 18+ yrs (or HM Modifiers)([facility]) (1 of 2) 05/18/1989 RSV Vaccines (1 - 1-dose 75+ series) 05/18/2014 Flu Vaccination: Ages 65+: Y early High Dose Recommended (or Modifier)([facility]) 10/10/2024 12/11/2018 COVID-19 Vaccine Screening: Initial Series and Booster Status ([facility]) ( - season) 2024 Medical Devices Not on file Insurance [facility] MEDICARE MEDICARE Care Teams Relief Pilot Relationship Specialty Start Date End Date No, Pcp, AREA FIELD WORKER N/A Do not use PCP - General Family Medicine 12/11/18
--- OUTSIDE RECORDS SUMMARY | 2024-12-02 13:46 | XMS_ITS | Clinical Summary ---
Author Organization [facility] Address [address] [place] [phone] Phone Care Team Providers Care Gas Appliance Installer Name Role Phone William Mcghee DO Primary Care Provider [phone] Allergies Active Allergy Reactions Criticality Noted Date Comments Guaifenesin Other (See Comments) Medium 01/11/2017 Skin peeling - hands Iodinated Contrast Media Rash Medium 10/16/2008 Scopolamine Mental Status Change 12/07/2008 Medications aspirin 81 MG EC tablet Take 81 mg by mouth daily. Active sertraline (ZOLOFT) 100 MG tablet Take 100 mg by mouth 2 (two) times a day. Active atorvastatin (LIPITOR) 80 MG tablet Take 80 mg by mouth daily. Active pancrelipase, lipase-protease- amylase, (CREON) 24,000-76,000 -120,000 unit CpDR 24,000 units [...] by mouth 2 (two) times a day. 06/13/19 Active acetaminophen (TYLENOL) 325 mg tablet Take 2 tablets (650 mg total) by mouth every 6 (six) hours as needed for mild pain or fever. 112 tablet 07/04/19 Active Additional Information Patient not taking.Reported on 10/08/2019 oxyCODONE 5 MG immediate release tablet Take 0.5-1 tablets (2.5-5 mg total) by mouth every 6 (six) hours as needed for severe pain. Pt. may request partial fill. Wean as tolerated. 28 tablet 07/04/19 Active Additional Information Patient not taking.Reported on 10/08/2019 amoxicillin (AMOXIL) 500 MG capsule Take 1 capsule (500 mg total) by mouth 3 (three) times a day. 126 capsule 07/04/19 Active DOXYCYCLINE HYCLATE ORAL Take by mouth. Ac tive lisinopril (PRINIVIL,ZESTRI L) 2.5 MG tablet Take 2.5 mg by [...] disorder 06/13/2013 Overview (05/01/2014): Hypertensive disorder Immunizations Immunization Administration Dates Next Due Influenza, Unspecified Formulation [...] Brother 6 Brother 7 Father (Age 67) [place] Mother (Age 57) heart attack Sister 1 [...] 52 04/29/2019 11:31 AM EST Temperature 37.3 C (99.2 F) 10/08/2019 10:48 AM EDT Respiratory Rate 16 07/04/2017 8:03 AM EDT [...] DEPRESSION SCREENING 07/16/2018 07/16/2017 INFLUENZA VACCINE (#1) 2024 12/11/2018, 2008 COVID-19 VACCINE ( season) 2024 05/14/2020, 04/16/2020 HEPATITIS A VACCINES Aged Out No long er eligible based on patient's age to complete this topic HIB VACCINES Aged Out No longer eligi ble based on patient's age to complete this topic MENINGOCOCCAL VACCINES (ACWY) Aged Out No longer eligible based on patient's age to complete this topic MENINGOCOCCAL VACCINES (B) Aged Out N o longer eligible based on patient's age to complete this topic Medical Devices Implanted Type Area Various Exceptionalities Teacher Device Identifier Shelf Expiration Date Model / Serial / Lot Pin Orthopedic [id number] Smooth Double Sharp Tip S/S Steinmann Pk/6ea - [id number] Implanted:Qty: 1 on 01/15/2017 by Sourav Rodriguez MD at [facility] STANDARD Left: Knee [employer] 04/17/2018 1636-109 / / [id number] Description:antibiotic cemen t surrounded steiman pin and placed in femoral canal of left leg after explantation of total knee implants Pin Orthopedic [id number] Smooth Double Sharp Tip S/S Steinmann Pk/6ea - [id number] Implanted:Qty: 1 on 01/15/2017 by Sourav Rodriguez MD at [facility] STANDARD Knee [employer] 12/15/2017 1636-109 / / [id number] Description:antibiotic cemen t surrounded steiman pin. Sternal Wires Cement Bone Simplex P Full Dose Bx/1ea - [id number] Implanted:Qty: 2 on 01/15/2017 by Sourav Rodriguez MD at [facility] Left: Knee [employer] 07/10/2019 [id number] / / [id number] Description:each bag ofcemen t mixed with 2 gms of vancomycin powder and tobramycin 1.6gms Knee Nail Fusion [id number] - [id number] Implanted:Qty: 1 on 06/28/2017 by Maulik Velasquez MD at [facility] Left: Knee BORJA 07/12/2025 [id number] / / [id number] Screw Bone 6.4x85mm Recon Screw Implanted:Qty: 1 on 06/28/2017 by Maulik Velasquez MD at [facility] Left: Knee BORJA AND NEPH 03/14/2027 / / [id number] Screw Bone 6.4x85 Mm Recon Screw Implanted:Qty: 1 on 06/28/2017 by Maulik Velasquez MD at [facility] Left: Knee BORJA 02/13/2027 / / [id number] Screw Trigen Low Profile [id number] - [id number] Implanted:Qty: 1 on 06/28/2017 by Maulik Velasquez MD at [facility] Left: Knee BORJA 02/08/2026 [id number] / / [id number] Screw Recon Hex Internal 6.4x85mm - [id number] Implanted:Qty: 1 on 06/28/2017 by Maulik Velasquez MD at [facility] JONH 03/14/2027 [id number] / / [id number] Description:Transfered from one time inplant Screw Recon Hex Internal 6.4x85mm - [id number] Implanted:Qty: 1 on 06/28/2017 by Maulik Velasquez MD at [facility] JONH 02/13/2027 [id number] / / [id number] Description:Transfered from one time implant Procedures Procedure Name Priority Date/Time Associated Diagnosis Comments BASIC METABOLIC PANEL Routine 07/04/2017 6:19 AM EDT HEMOGLOBIN A1C Routine 06/12/2017 11:30 AM EDT Pre-op evaluation from Last 3 Months or Most Recently Relevant to Health Maintenance Results * (ABNORMAL) Basic metabolic panel (07/04/2017 6:19 AM EDT) SODIUM 140 136 - 145 mmol/L [facility] POTASSIUM 4.6 3.4 - 5.0 mmol/L [facility] CHLORIDE 102 98 - 107 mmol/L [facility] CO2 27 22 - 31 mmol/L [facility] BUN 28(H) 6 - 23 mg/dL [facility] CREATININE 0.86 0.50 - 1.20 mg/dL [facility] GLUCOSE 74 70 - 100 mg/dL [facility] CALCIUM 8.3(L) 8.8 - 10.7 mg/dL [facility] EGFR 83 >59 mL/min/1.7 3m2 [facility] Comment:If patient is black, multiply result by 1.159. Estimated glomerular filtration rate calculated using the CKD-EPI equation. ANION GAP 11 7 - 17 mmol/L [facility] Blood 07/04/2017 6:19 AM EDT 07/04/2017 6:38 AM EDT Maulik Velasquez MD LAB BLOOD ORDERABLES Janet l Result Performing Organization Address City/State/[facility] Co de Phone Number [facility] [address] [place] [phone] * (ABNORMAL) Hemoglobin A1c (06/12/2017 11:30 AM EDT) HEMOGLOBIN A1C 7.8(H) 4.2 - 5.8 % [facility] CALC MEAN BLD GLUC 177 mg/dL [facility] Comment: There is no established normal range for the CMBG (Calculated Mean Blood Glucose). A hemoglobin A1c < 7% is the recommended target for most people with diabetes. The CMBG for an A1c of 7% is 154 mg/dL. The diagnostic hemoglobin A1c level for diabetes is greater than or equal to 6.5% which is a CMBG greater than or equal to 140 mg/dL. 06/12/2017 11:3 0 AM EDT 06/12/2017 1:24 PM EDT us Maulik Velasquez MD LAB BLOOD ORDERABLES Janet l Result Performing Organization Address City/State/[facility] Co de Phone Number [facility] [address] [place] [phone] from Last 3 Months or Most Recently Relevant to Health Maintenance Insurance MEDICARE PART A & B Member Subscriber Plan / Payer ( fective 1997-Present) Name:Tay Elizabeth Member ID:[id number] Relation to Subscriber:Self Name:Tay Elizabeth Subscriber ID:[id number] Payer ID:[id number] Group ID:Not on file Type:Medicare Address: [email or web address] [address] [facility] [place] [address] [facility] MEDEX SUPPLEMENT MEDICARE PART A & B [facility] MEDEX SUPPLEMENT MEDICARE PART A & B [place] MEDEX SUPPLEMENT MEDICARE PART A & B [place] MEDEX SUPPLEMENT MEDICARE PART A & B [place] MEDEX SUPPLEMENT MEDICARE PART A & B [place] MEDEX SUPPLEMENT MEDICARE PART A & B [place] MEDEX SUPPLEMENT MEDICARE PART A & B [place] MEDEX SUPPLEMENT MEDICARE PART A & B [place] MEDEX SUPPLEMENT Advance Directives For more information, please contact: [phone] (9AM - 5PM [facility], Sunday-Sunday) Documents on File Type Date Recorded Patient Bituminous Distributor Operator Expl anation Healthcare Proxy 06/28/2017 8:46 AM Advance Directive [...] Agents on File Name Relationship Healthcare Agent Relationshi p Communication Ayah Elizabeth Spouse .Primary Health Care Agent (Proxy form on file) Care Teams Gas Appliance Installer Relationship Specialty Start Date End Date William Mcghee DO [address] [place] [address] PCP - General Internal Medicine 06/28/17 Additional Source Comments The information contained in this document represents components of the legal health record. It is not the complete legal health record.[facility]
--- OUTSIDE RECORDS SUMMARY | 2024-12-02 13:46 | XMS_ITS | Encounter Summary ---
Author Organization [facility] Address [address] [address] Phone Care Team Providers Care Account Support Manager Name Role Phone William Mcghee DO Primary Care Provider [phone] Encounter Details Date Type Department Care Team (Late st Contact Info) Description 07/23/[address] [facility] Rad[facility] [address] [place] [address] Hubert Marrufo [address] [place] [address] [email or web address] Social History Tobacco Use Types Packs/Day [...] documented as of this encounter Care Teams Account Support Manager Relationship Specialty Start Date End Date William Mcghee DO [address] [place] [address] [address] [place] [address] PCP - General Internal Medicine 06/28/17 documented as of this encounter Additional Source Comments The information contained in this document represents components of the legal health record. It is not the complete legal health record.[facility]
--- OUTSIDE RECORDS SUMMARY | 2024-12-02 13:46 | XMS_ITS | Continuity of Care Document ---
Author Organization [facility] [address] [facility] sherie [facility] [address] [place] [address] Phone [phone] Care Team Providers Care Courtroom Deputy Name Role Phone William Mcghee M.D. Care Team Information Rece iver [phone] Problems Active Problems Provider Date Type 1 [...] Social History Type Date Description Comments Sex Male Sex Unknown Tobacco Use Start: Unknown Never Smoked Cigarettes ETOH Use Occasionally consumes alcoho l Allergies and adverse reactions Description No Known Drug Allergies Medications Active Medications SIG Qnty Indications Order ing Provider Date Hydrocodone Bitartrate/Acetaminop hen5-325mg Tablets 1 tablet by mouth three times per day as needed 25tabs Richy Davies M.D. 12/13/2023 Zolpidem Tdetcrmr71fj Tablets take 1 tablet by mouth at bedtime 30tabs Richy Davies M.D. 12/13/2023 Nudmdjq978Uaga/ML Solution inject 3 times daily before meals via insulin pump 30ml Richy Davies M.D. 11/08/2023 Tamsulosin HCL0.4mg Capsules 1 by mouth every day Richy Davies M.D. 05/30/2023 Metoprolol Avtiievr45ai Tablets 1/2 tab by mouth twice a day 56tabs Richy Davies M.D. 11/22/2022 Sertraline OEG594af Tablets 1 by mouth every day 90tabs Richy Davies M.D. 11/22/[id number] C[address] Part 3 capsules tid Richy Davies M.D. 11/22/2022 Atorvastatin Zlhntda71ka Tablets 1 by mouth every day 90tabs Richy Davies M.D. 11/22/2022 Vitamin D (Cholecalciferol)50mc g (1999 Ut) Capsules 1 by mouth every day Richy Davies M.D. 11/22/2022 Contour Next Blood Glucose TestStrips Test 3 Times A Day Dx: E11.8 300units E11.8 Richy Davies M.D. Amlodipine Tzqrfkvh98mr Tablets Take 1 Tablet By Mouth Every Day Unknown History Medications Hydrocodone-Acetaminophen7.5-325mg Tablets Richy Davies M.D. 03/26/2024 - 03/26/2024 Vital Signs Date Vital Result Comment 11/26/2024 11:05am BP Systolic 112 mmHg BP Diastolic 70 mmHg Heart Rate 72 /min Height 65 inches 5'5 Weight 168.00 lb BMI (Body Mass Index) 28.0 kg/m2 Results Test Acquired Date Facility Test Result H/L Range N ote Hemoglobin A1c 11/26/2024 Inhouse Hemoglobin A1c 7.5% Glucose Fingerstick 11/26/2024 Inhouse Glucose Fingerstick 238 Glucose Fingerstick 07/23/2024 Inhouse Glucose Fingerstick 144 Hemoglobin A1c 07/23/2024 Inhouse Hemoglobin A1c 7.4 Glucose Fingerstick 03/26/2024 Inhouse Glucose Fingerstick 226 [...] Fingerstick 283 Procedures Date Code Description Status 11/26/2024 11163 Glucose Monitoring Interpeta tion And Report Completed 07/23/2024 03599 Glucose Monitoring Interpeta tion And Report Completed 03/26/2024 27558 Glucose Monitoring Interpeta tion And Report Completed 09/05/2023 25830 Glucose Monitoring Interpeta tion And Report Completed 05/30/2023 95983 Glucose Monitoring Interpeta tion And Report Completed 11/22/2022 57164 Glucose Monitoring Interpeta tion And Report Completed 05/11/2022 67927 Glucose Monitoring Interpeta tion And Report Completed 01/09/2022 00449 Glucose Monitoring Interpeta tion And Report Completed Medical Devices Description No Information Available Encounters Type Date Location Provider Dx Diagnosis Office Visit 11/26/2024 11:15a Main Office Richy Davies M.D. E10.9 Type 1 diabetes mellitus without complications Assessments Date Code Description Provider 11/26/2024 E10.9 Type 1 diabetes mellitus without complications Richy Davies M.D. Plan of Treatment Future Appointment(s):* 04/08/2025 10:45 am - Richy Davies M.D. at Main Office 07/23/2024 - Richy Davies M.D.* E10.9 Type 1 diabetes mellitus without complications * N18.30 Chronic kidney disease stage 3 Functional Status Description No Information Available Mental Status Description No Information Available Referrals Refer to Reason for Referral Status Appt Richy Henry M.D. Created [address] [place] [address] [address] [place] [address] [phone]
== END 2024-12-02 11:45 | disposition home or self-care (01) ==
LOC: HO.HKAS 11:04
PROVIDERS: PCP Internal Medicine; Visit Provider Internal Medicine Nephrology
DX: N17.9 Acute kidney failure, unspecified (principal); N18.31 Chronic kidney disease, stage 3a; I10 Essential (primary) hypertension; R60.0 Localized edema
CPT/HCPCS: 99214

== ENCOUNTER → 2024-12-02 11:03 | Outpatient (BNVA) | payer MEDICARE, SELFPAY | PROVIDERS: PCP Internal Medicine; Visit Provider Internal Medicine Nephrology | DX: I12.9 Hypertensive chronic kidney disease with stage 1 through stage 4 chronic kidney disease, or unspecified chronic kidney disease (principal); N18.31 Chronic kidney disease, stage 3a; N17.9 Acute kidney failure, unspecified; R60.0 Localized edema | CPT/HCPCS: 99212 ==

== ENCOUNTER 2024-12-23 11:21 | Outpatient (AMB) | payer MEDICARE, SELFPAY ==
--- NOTE | 2024-12-23 11:40 | HO.NEPHOV_ITS ---
Vital Signs 12/23/24 11:50 Height 5 ft 6 in Weight 165 lb 2 oz BMI 26.6 BP 124/60 Blood Pressure Location Rt brachial Position Sitting Pulse 57 Pulse Source Pulse Oximeter Pulse Oximetry (%) 97 Oxygen Delivery Method Room Air Intake Visit Reasons: 3wk w labs Combine Driver Required: No Accompanied by: Spouse Allergies No Known Allergies Allergy (Verified 12/23/24 11:49) HPI Comments Details: I had the pleasure of seeing Tay in follow-up of his chronic kidney disease. He has history of Whipples. His BP has been running low. His blood sugar is better controlled. He is on insulin pump. He avoids nonsteroidal anti- inflammatories. He denies nausea, vomiting, diarrhea, chest pain, shortness of breath, proximal nocturnal dyspnea, orthopnea, hematuria, urinary symptoms . He has been having edema. His serum creatinine recently had gone up from baseline REPLACED BY [facility] Medical History (Updated 12/02/24 @ 11:37 by Winston Comer MD) Hypertension CKD (chronic kidney disease) stage 3, GFR 30-59 ml/min Surgical History H/O repair of rotator cuff History of carpal tunnel release History of hernia repair S/P triple vessel bypass History of back surgery History of knee replacement History of surgery on lower extremity Family History Mother Stroke Father Heart attack Social History Alcohol intake: never Patient Tobacco Use Status: Former Tobacco user Review of Systems Const All systems reviewed & are unremarkable except as noted in HPI and below Physical Exam Const General: comfortable and no acute distress Orientation/consciousness: patient oriented x3 HEENT Head: Yes normocephalic Mouth: Normal oral and palatal mucosa present Eyes EOM: EOMs intact bilaterally Neck Neck: Yes supple Resp Auscultation: clear to auscultation bilaterally Cardio Jugular venous distension: no JVD Rate: regular rate GI Palpation (GI): Soft to palpation Auscultation: normal bowel sounds General: Yes no CVA tenderness Back/Spine/Pelvis Back: no CVA tenderness Skin General skin exam: no rashes or lesions noted Neuro General: patient oriented x3 and moves all extremities Extrem General: Yes no pedal edema Assessment & Plan Assessment & Plan (1) CKD (chronic kidney disease) stage 3, GFR 30-59 ml/min: Code(s): N18.30 - Chronic kidney disease, stage 3 unspecified Category: Medical Qualifiers: Chronic kidney disease stage 3 subtype: stage 3a (GFR 45-59) Qualified Code(s): N18.31 - Chronic kidney disease, stage 3a (2) AGUILA (acute kidney injury): Code(s): N17.9 - Acute kidney failure, unspecified Category: Medical (3) Hypertension: Code(s): I10 - Essential (primary) hypertension Category: Medical Qualifiers: Hypertension type: primary hypertension Qualified Code(s): I10 - Essential (primary) hypertension Plan He has CKD stage 3. His renal functions recently was marginally worse with low BP's and I D/Srinath his Amlodipine at that time. His BP is at goal now. His repeat labs are pending. I asked him to increase hydration. He does not have any proteinuria. He is on statins. His volume status is optimal. I did not change any other medications . Follow-up lab work ordered. Follow-up appointment given Orders: Orders Blood Urea Nitrogen 6 Months I10 - Essential (primary) hypertension, N17.9 - Acute kidney failure, unspecified, N18.31 - Chronic kidney disease, stage 3a Calcium Today I10 - Essential (primary) hypertension, N17.9 - Acute kidney failure, unspecified, N18.31 - Chronic kidney disease, stage 3a Creatinine 6 Months I10 - Essential (primary) hypertension, N17.9 - Acute kidney failure, unspecified, N18.31 - Chronic kidney disease, stage 3a Electrolytes 6 Months I10 - Essential (primary) hypertension, N17.9 - Acute kidney failure, unspecified, N18.31 - Chronic kidney disease, stage 3a Medications: Discontinued furosemide (Lasix) Discontinued Reason: Doctor's Order 20 mg PO DAILY 10 tabs 0RF Coding Level of Care Code Est Pt Level 4 (45856) Diagnoses Stage 3a chronic kidney disease N18.31 Chronic kidney disease stage 3 subtype: stage 3a (GFR 45-59) AGUILA (acute kidney injury) N17.9 Primary hypertension I10 Hypertension type: primary hypertension
[2024-12-23 11:50] VITALS: BP 124/60; PULSE 57; O2SAT 97; BMI 26.6
--- OUTSIDE RECORDS SUMMARY | 2024-12-23 13:47 | XMS_ITS | Encounter Summary ---
Author Organization [facility] Address [address] [facility] [address] [place] [address] Phone Care Team Providers Care On Air Host Name Role Phone Fidencio Johnson DO Primary Care Provider Un available William Mcghee DO Primary Care Provider [phone] Encounter Details Date Type Department Care Team (Late st Contact Info) Description 10/09/2016 Procedure Pass BWF Periop 6th floor [address] [place] [address] Social History Tobacco Use Types Packs/Day Years [...] documented as of this encounter Care Teams On Air Host Relationship Specialty Start Date End Date Fidencio Johnson DO PCP - General Internal Medicine 07/19/16 06/27/17 William Mcghee DO [address] [place] [address] 18 [place] [address] PCP - General Internal Medicine 06/28/17 documented as of this encounter Additional Source Comments The information contained in this document represents components of the legal health record. It is not the complete legal health record.[facility]
--- OUTSIDE RECORDS SUMMARY | 2024-12-23 13:47 | XMS_ITS | Encounter Summary ---
Author Organization [facility] Address [address] [address] Phone Care Team Providers Care Self Propelled Hot Mix Roller Operator Name Role Phone William Mcghee DO Primary Care Provider Encounter Details Date Type Department Care Team (Late st Contact Info) Description 03/28/2019 Transcribe Orders [facility] [address] [address] Hubert Marrufo [address] [place] [id number] [email or web address] Social History Tobacco Use Types [...] (No Interpretation) (03/28/2019 9:37 AM EST) Narrative [facility] - 03/28/2019 9:37 AM EST This [...] documented as of this encounter Care Teams Self Propelled Hot Mix Roller Operator Relationship Specialty Start Date End Date William Mcghee DO [address] [place] [address] PCP - General Internal Medicine 06/28/17 documented as of this encounter Additional Source Comments The information contained in this document represents components of the legal health record. It is not the complete legal health record.[facility]
--- OUTSIDE RECORDS SUMMARY | 2024-12-23 13:47 | XMS_ITS | Patient Health Record ---
Author Organization [facility] Address [address] [place] [address] Care Team Providers Care Senior Applications Developer Name Role Phone Litzy DUMONT, William Primary Care Provider Hortensia Osborne Unavailable [phone] Allergies Allergen (clinical drug ingredient) Drug/Non Drug [...] Duration) Notes Start Date End Date Status Doxycycline Not-Taki ng Lisinopril 2.5 MG 1 tablet Orally Once a day; Duration: 30 day(s) Not-Taking Cholecalciferol Not- Taking Clopidogrel Bisulfate 75 MG 1 tablet Ora lly Once a day Not-Taking Diltiazem HCl Coated Beads 180 MG 1 capsule Orally Once a day; Duration: 30 day(s) Not-Taking Lisinopril 2.5 MG Orally No t-Taking Pravastatin Sodium 20 MG 1 tablet Orally Once a day; Duration: 30 day(s) Not-Taking Myrbetriq 50 MG 1 tablet Orally Once a day; Duration: 30 day(s) Not-Taking Fish Oil 1000 MG 1 capsule with a little l Orally Once a day; Duration: 30 day(s) Not-Taking Aspirin 81 MG 1 tablet Orally Once a day; Duration: 30 day(s) Not-Taking Citalopram Hydrobromide 40 MG 1 tablet Orally Once a day; Duration: 30 day(s) Not-Taking Furosemide 20 MG Oral; Duration: 10 Days Active Amoxicillin Not-Taki ng Gabapentin Not-Takin g oxyCODONE HCl 5 MG 1 tablet Orally ever y 6 hrs Not-Taking Extra-Depth Diabetic Shoes with 3 Pair Custom heat-molded multi-density innersoles . for 1 year . Dx:hammertoes and calloused lesions; Duration: . Active Zenpep 60885 UNIT as directed Orally Not-Taking Tamsulosin HCl Activ e ALPRAZolam 0.5 MG 1 tablet Orally Thre e times a day Not-Taking Probiotic Not-Taking Insulin Active Atorvastatin Calcium 80 MG 1 tablet Oral ly Once a day Active Vitamin D Active Multivitamin Active PreserVision AREDS 2 Active Sertraline HCl 100 MG 1 tablet Orally Active Creon 32297-34894 UNIT Orally Active Metoprolol Tartrate 25 MG 1 tablet with food Orally Twice a day Active rifAMPin Not-Taking Vancomycin Not-Takin g Immunizations Vaccine Route [...] Problem Acquired hammer toe of right foot ([id number] ) Other hammer toe(s) (acquired), right foot (M20.41) Active confirmed Problem Acquired hammer toe of left foot ([id number] ) Other hammer toe(s) (acquired), left foot (M20.42) Active confirmed Problem Polyneuropathy due to type 2 diabetes mellitus (638965660) Type 2 diabetes mellitus with diabetic polyneuropathy (E11.42) Active confirmed Vital Signs Blood pressure diastolic 80 mm Hg 12/09/2024 Height 5 ft 7 in in 12/09/2024 Blood pressure systolic 130 mm Hg 12/09/2024 Weight 158 lbs 12/09/2024 BMI 24.74 kg/m2 12/09/2024 Procedures Procedure Date Ordered Date Performed Result Body Sit e 01278-PEPU SKIN LESIONS, 2 TO 4 01/02/2024 N/A Q4693-BXAQCVNQ DYSTROPHIC NAILS ANY # 01/02/2024 N/A 36980-YTOG SKIN LESIONS, 2 TO 4 04/02/2024 N/A H5498-CUSEQKTB DYSTROPHIC NAILS ANY # 04/02/2024 N/A 00097-XQHW SKIN LESIONS, 2 TO 4 06/03/2024 N/A A1094-WCYAWORH DYSTROPHIC NAILS ANY # 06/03/2024 N/A 23625-Nrutnilp Plate 08/05/2024 N/A 32204-YOWH SKIN LESIONS, 2 TO 4 08/05/2024 N/A F9666-EWWAPNLP DYSTROPHIC NAILS ANY # 08/05/2024 N/A 46359-VAOK SKIN LESIONS, 2 TO 4 10/07/2024 N/A F6951-BXCFXYCU DYSTROPHIC NAILS ANY # 10/07/2024 N/A 78631-Wuaoeuyl Plate 12/09/2024 N/A 24491-IYNF SKIN LESIONS, 2 TO 4 12/09/2024 N/A I5555-DLFNIOEA DYSTROPHIC NAILS ANY # 12/09/2024 N/A Encounters Encounter Location Date Provider Diagnosis Luiz Sinhaiatrdiane Campa [address] [place] [address] [place] [address] 01/02/2024 Hortensia Black Type 2 diabetes katty itus with diabetic polyneuropathy E11.[address] [place] [address] 04/02/2024 Hortensia Sparrow Type 2 diabetes katty itus with diabetic polyneuropathy E11.[address] [place] [address] 06/03/2024 Hortensia Black Type 2 diabetes ktaty itus with diabetic polyneuropathy E11.[address] [address] 08/05/2024 Hortensiaovidio Sparrow Type 2 diabetes katty itus with diabetic polyneuropathy E11.42 and Ingrown nail L60.[address] [address] 10/07/2024 Hortensiahank Sparrow Type 2 diabetes katty itus with diabetic polyneuropathy E11.42 ; Other hammer toe(s) (acquired), right foot M20.41 and Other hammer toe(s) (acquired), left foot M20.[address] [address] 12/09/2024 Hortensia Sparrow Type 2 diabetes katty itus with diabetic polyneuropathy E11.42 and Ingrown nail L60.0 Assessments Encounter Date Diagnosis (ICD Code) Assessment Notes Treatment Notes Treatment Clinical Notes Section Notes 01/02/2024 Type 2 diabetes mellitus with diabetic polyneuropathy (ICD-10 - E11.42) 10/07/2024 Other hammer toe(s) (acquired), right foot (ICD-10 - M20.41) Patient Educated with: DIABETIC FOOT CARE INSTRUCTIONS. pdf (DIABETIC FOOT CARE INSTRUCTIONS. pdf) 10/07/2024 Type 2 diabetes mellitus with diabetic polyneuropathy (ICD-10 - E11.42) 12/09/2024 Type 2 diabetes mellitus with diabetic polyneuropathy (ICD-10 - E11.42) 12/09/2024 Ingrown nail (ICD-10 - L60.0) 06/03/2024 Type 2 diabetes mellitus with diabetic polyneuropathy (ICD-10 - E11.42) 04/02/2024 Type 2 diabetes mellitus with diabetic polyneuropathy (ICD-10 - E11.42) 08/05/2024 Type 2 diabetes mellitus with diabetic polyneuropathy (ICD-10 - E11.42) 08/05/2024 Ingrown nail (ICD-10 - L60.0) 10/07/2024 Other hammer toe(s) (acquired), left foot (ICD-10 - M20.42) 12/09/2024 Other Plan Of Treatment Pending Test Test Name Order Date 11213-Hqlv Destruction, 1-10/16/2014 55865-Bcuf Destruction, -08/07/2014 34894-Kxad Destruction, -05/26/2014 37093-Qpvl Destruction, -04/10/2014 35112-Dwsxcrav Plate 12/12/2013 21416-Rbkljzyb Plate 09/30/2013 96425-Taaxsbdo Plate 05/26/2014 64544-Ilwzumnq Plate 07/22/2013 68455-Zxxurplp Plate 02/25/2013 82082-Uxarsiee Plate 12/17/2012 92633-Ibhxbtmh Plate 07/09/2012 96552-Jumwmkwl Plate 12/28/2011 39099-Udeselzt Plate 09/28/2011 81282-Hbwrwjjl Plate 08/07/2014 99523-Krmiepyv Plate 10/16/2014 04833-Hnjmgouh Plate 02/16/2016 37147-Tfaeygax Plate 12/09/2024 06825-Cowwwmny Plate 05/31/2016 47292-Ashvjkej Plate 08/05/2024 83083-Lvyzkotj Plate 11/23/2020 71725-Xrbaxrvj Plate 05/27/2021 63620-Ponyjiut Plate 11/09/2021 38007-Pqydrztp Plate 09/01/2022 15529-Wtduexfq Plate 03/28/2012 65932-Rgjyjghr Plate 09/17/2012 45276-Mnrzzfin Plate 05/06/2013 40742-Cbpbmmaa Plate 02/24/2014 30009-Zqcvvxpr Plate 07/16/2015 98746-Feoaqkrt Plate 09/24/2015 25956-Gcfinfah Plate 12/03/2015 44323-Zedrfkql Plate 06/25/2018 64749-Kbwokzse Plate 09/25/2018 16649-Zpskhdcg Plate 03/21/2019 19966-Zcseptsu Plate 07/22/2019 87673-Gjaannsh Plate 04/07/2020 23498-Fkiyrflf Plate 06/30/2020 69370-Ljtgqesu Plate Each Additional 02/2020 64395- Debride <25 sq cm 12/03/2015 94750- Debride <25 sq cm 09/24/2015 64899- Debride <25 sq cm 11/13/2014 46151- Debride <25 sq cm 12/11/2014 13028- Debride <25 sq cm 03/02/2015 23634- Debride <25 sq cm 05/04/2015 74020- Debride <25 sq cm 07/16/2015 03857- Debride <25 sq cm 02/24/2014 03168- Debride <25 sq cm 05/06/2013 01095- Debride <25 sq cm 09/17/2012 07955- Debride <25 sq cm 03/28/2012 46639- Debride <25 sq cm 02/15/2021 97435- Debride <25 sq cm 12/28/2020 36589- Debride <25 sq cm 05/31/2016 97326- Debride <25 sq cm 02/16/2016 74092- Debride <25 sq cm 10/16/2014 79167- Debride <25 sq cm 12/29/2014 38505- Debride <25 sq cm 07/07/2011 56155- Debride <25 sq cm 04/04/2011 47621- Debride <25 sq cm 12/28/2011 05834- Debride <25 sq cm 09/28/2011 72254- Debride <25 sq cm 07/09/2012 31905- Debride <25 sq cm 12/17/2012 75900- Debride <25 sq cm 02/25/2013 52374- Debride <25 sq cm 07/22/2013 47529- Debride <25 sq cm 05/26/2014 05161- Debride <25 sq cm 08/07/2014 56843- Debride <25 sq cm 09/30/2013 14291- Debride <25 sq cm 12/12/2013 77452 I&D ABSCESS- SIMPLE,SINGLE 015 71599 I&D ABSCESS- SIMPLE,SINGLE 015 37403 I&D ABSCESS- SIMPLE,SINGLE 013 83936 I&D ABSCESS- SIMPLE,SINGLE 013 68898 I&D ABSCESS- SIMPLE,SINGLE 015 81908 I&D ABSCESS- SIMPLE,SINGLE 013 76107 I&D ABSCESS- SIMPLE,SINGLE 014 89627-FFYI SKIN LESIONS, 2 TO 4 06/26/19 19 77300-PQAB SKIN LESIONS, 2 TO 4 09/26/19 19 98319-UZBA SKIN LESIONS, 2 TO 4 03/21/19 20 44535-YKGV SKIN LESIONS, 2 TO 4 08/31/19 17 25964-KBRF SKIN LESIONS, 2 TO 4 12/20/19 17 82383-LJTH SKIN LESIONS, 2 TO 4 01/09/20 18 61294-IUIK SKIN LESIONS, 2 TO 4 04/09/19 19 57741-ATZT SKIN LESIONS, 2 TO 4 07/22/19 84711-WZKD SKIN LESIONS, 2 TO 4 09/30/19 20 19785-MIMZ SKIN LESIONS, 2 TO 4 07/01/19 08488-UJVZ SKIN LESIONS, 2 TO 4 12/09/19 93287-PISR SKIN LESIONS, 2 TO 4 04/07/19 21 37981-HFVY SKIN LESIONS, 2 TO 4 05/06/19 14 00068-YSSD SKIN LESIONS, 2 TO 4 02/25/20 14 44090-KECS SKIN LESIONS, 2 TO 4 07/16/19 16 83756-DPEM SKIN LESIONS, 2 TO 4 05/04/19 16 13047-NRMW SKIN LESIONS, 2 TO 4 03/02/20 15 56762-SRBE SKIN LESIONS, 2 TO 4 12/03/19 16 22456-NRKJ SKIN LESIONS, 2 TO 4 10/17/19 15 28125-JPJR SKIN LESIONS, 2 TO 4 02/16/20 16 50548-EJXC SKIN LESIONS, 2 TO 4 06/01/19 17 47512-PSSS SKIN LESIONS, 2 TO 4 06/02/19 18 17176-FOJJ SKIN LESIONS, 2 TO 4 09/09/19 21 26514-BBQS SKIN LESIONS, 2 TO 4 10/08/19 25 27919-RLBN SKIN LESIONS, 2 TO 4 12/10/19 25 72156-NDHC SKIN LESIONS, 2 TO 4 09/02/19 23 95487-CDKS SKIN LESIONS, 2 TO 4 08/06/19 25 85209-MRNP SKIN LESIONS, 2 TO 4 04/02/19 25 10462-DNCY SKIN LESIONS, 2 TO 4 06/04/19 10522-GQEX SKIN LESIONS, 2 TO 4 02/16/20 03812-HJXD SKIN LESIONS, 2 TO 4 11/24/19 87010-OUFQ SKIN LESIONS, 2 TO 4 05/28/19 27954-ZWUE SKIN LESIONS, 2 TO 4 08/27/19 78759-TUSA SKIN LESIONS, 2 TO 4 05/31/19 23 44310-BPBV SKIN LESIONS, 2 TO 4 11/10/19 33725-NWXZ SKIN LESIONS, 2 TO 4 12/02/19 74783-DNIA SKIN LESIONS, 2 TO 4 02/17/20 80847-JVBY SKIN LESIONS, 2 TO 4 04/20/19 63900-MVDS SKIN LESIONS, 2 TO 4 06/22/19 30948-KODP SKIN LESIONS, 2 TO 4 08/24/19 94478-PQWU SKIN LESIONS, 2 TO 4 10/31/19 97296-YQGN SKIN LESIONS, 2 TO 4 01/02/20 72126-LKDA SKIN LESIONS, 2 TO 4 07/23/19 14 84000-HWSD SKIN LESIONS, 2 TO 4 05/27/19 15 65992-HWDT SKIN LESIONS, 2 TO 4 08/08/19 15 04004-RYES SKIN LESIONS, 2 TO 4 12/13/19 14 04977-GPFW SKIN LESIONS, 2 TO 4 10/01/19 14 37969-SLGO SKIN LESIONS, 2 TO 4 03/23/19 18 56445-AVVB SKIN LESIONS, 2 TO 4 01/14/20 11 21477-SNNT SKIN LESIONS, 2 TO 4 12/30/19 15 88889-UBNV SKIN LESIONS, 2 TO 4 12/28/19 19 06869-VFMX SKIN LESION 04/04/2011 32974-NTEE SKIN LESION 07/07/2011 47866-VWGK SKIN LESION 09/28/2011 95241-YCMO SKIN LESION 12/28/2011 48433-PZRN SKIN LESION 07/09/2012 50579-IJBW SKIN LESION 09/17/2012 53905-Dezm. Subungual Hematoma 3 20847-Zvfp. Subungual Hematoma 1 36169-TTSZ NAIL(S) 10/16/2014 27182-LUFE NAIL(S) 02/24/2014 10920-MVQI NAIL(S) 05/06/2013 95422-KUPV NAIL(S) 09/24/2015 71698-ZYQP NAIL(S) 03/02/2015 76999-DTLB NAIL(S) 05/04/2015 77063-KQKK NAIL(S) 07/16/2015 06166-KSZA NAIL(S) 07/22/2013 53767-GGKB NAIL(S) 09/30/2013 02862-CXRG NAIL(S) 12/12/2013 71570-EATT NAIL(S) 08/07/2014 65438-LIUB NAIL(S) 05/26/2014 75265-XQLI NAIL(S) 01/13/2011 82925-BOVB NAIL(S) 12/29/2014 U6171-AWLWTMZZ DYSTROPHIC NAILS ANY # X8216-OCTTKDIO DYSTROPHIC NAILS ANY # H6986-SFILREUT DYSTROPHIC NAILS ANY # Q8200-NUDMJYJK DYSTROPHIC NAILS ANY # P2137-AVVPCQGT DYSTROPHIC NAILS ANY # X1358-PBMLREZB DYSTROPHIC NAILS ANY # G4076-FADFRKDW DYSTROPHIC NAILS ANY # Q1736-GMQEVDTZ DYSTROPHIC NAILS ANY # E8409-OYAXZFBQ DYSTROPHIC NAILS ANY # G9229-TJFHQMPG DYSTROPHIC NAILS ANY # N6629-CSWTUMAD DYSTROPHIC NAILS ANY # H4857-EJIEYSKF DYSTROPHIC NAILS ANY # Y2726-ERLPUKJB DYSTROPHIC NAILS ANY # A4638-MMLVNSUF DYSTROPHIC NAILS ANY # Q2324-FUUUBCEO DYSTROPHIC NAILS ANY # N1583-GYYTDXLO DYSTROPHIC NAILS ANY # N1510-YABSCKTK DYSTROPHIC NAILS ANY # T6682-XIWEDZAG DYSTROPHIC NAILS ANY # R0905-GKSJPBIN DYSTROPHIC NAILS ANY # F4764-CIYZIZVC DYSTROPHIC NAILS ANY # K9714-UVQZJPUE DYSTROPHIC NAILS ANY # I6816-QSJPRNIQ DYSTROPHIC NAILS ANY # Y5338-MPYJNJKI DYSTROPHIC NAILS ANY # U7928-XIBKGIQC DYSTROPHIC NAILS ANY # K1049-TVJSFWLI DYSTROPHIC NAILS ANY # T6518-VWCQMGWN DYSTROPHIC NAILS ANY # X0051-SXPQPUUN DYSTROPHIC NAILS ANY # I2422-VJGCSOJU DYSTROPHIC NAILS ANY # Z3240-NABYJLKE DYSTROPHIC NAILS ANY # D4080-NCDNDYZU DYSTROPHIC NAILS ANY # X4692-CVJHOQYB DYSTROPHIC NAILS ANY # M5257-RCXHOHRT DYSTROPHIC NAILS ANY # Z6474-QHASGNOJ DYSTROPHIC NAILS ANY # H3563-OXDBWEQX DYSTROPHIC NAILS ANY # D0458-LPPHTKNB DYSTROPHIC NAILS ANY # H0811-YDUIATWR DYSTROPHIC NAILS ANY # U2160-QMEBKUYW DYSTROPHIC NAILS ANY # R6628-VWZIPDDF DYSTROPHIC NAILS ANY # C0651-NDKUMNTY DYSTROPHIC NAILS ANY # F3135-HALRGBBU DYSTROPHIC NAILS ANY # Z9929-LWRTEYRO DYSTROPHIC NAILS ANY # E7560-GSQDWUOK DYSTROPHIC NAILS ANY # C3600-KFTNLZYK DYSTROPHIC NAILS ANY # H1144-XXLGZQFK DYSTROPHIC NAILS ANY # E0386-GRSZJMFS DYSTROPHIC NAILS ANY # U4736-UKCIMTLL DYSTROPHIC NAILS ANY # I8482-TLQCCAWH DYSTROPHIC NAILS ANY # V5052-VIZYRSJR DYSTROPHIC NAILS ANY # 37352-ZJHCSUHM OF HEMATOMA/FLUID 018 Next Appt Details Provider Name:Hortensia Shultz Andrews , 02/10/2025 11:15:00 AM, [address] [place], [address], Provider Name:Hortensia Shultz Andrews , 04/14/2025 11:00:00 AM, [address] [place], [address], Insurance Providers Payer Name Payer Address Payer Phone Subscriber Number Group Number Insured Name Patient Relationship to Insured Coverage Start Date Coverage End Date Medicare National [employer] [address] [place] [address] [id number] Glenn, Tay Self - patient is the insured [facility] [address] [place] [address] [phone] [id number] Tay Elizabeth Self - patient is the insured Medical (General) History Medical History History ICD Code reflux mumps hypertension diverticulitis diabetic depression cancer back, hip, knee pain Anxiety disorder narrowing of bile duct MRSA left knee Surgical History Surgery Date(Month/Year) back surgery 1972, 1979, 1993 carpal tunnel surgery 2002 kidney surgery 2006 left knee surgery 02/18/15 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 Left leg christofer in leg 06/2017 Knee spacer 01/13/17
--- OUTSIDE RECORDS SUMMARY | 2024-12-23 13:47 | XMS_ITS | Encounter Summary ---
Author Organization [facility] Address [address] [place] [address] Phone Care Team Providers Care Tucking Machine Operator Name Role Phone William Mcghee DO Primary Care Provider [phone] Encounter Details Date Type Department Care Team (Late st Contact Info) Description 12/11/2019 Procedure Pass [facility] Periop [address] [place] [address] Social History Tobacco Use Types Packs/Day Years [...] documented as of this encounter Care Teams Tucking Machine Operator Relationship Specialty Start Date End Date William Mcghee DO [address] [place] [address] 18 [place] [address] PCP - General Internal Medicine 06/28/17 documented as of this encounter Additional Source Comments The information contained in this document represents components of the legal health record. It is not the complete legal health record.[facility]
--- OUTSIDE RECORDS SUMMARY | 2024-12-23 13:48 | XMS_ITS | Encounter Summary ---
Author Organization [facility] Address [address] [place] [address] [place] [address] Phone Care Team Providers Care Char House Supervisor Name Role Phone William Mcghee DO Primary Care Provider [phone] Encounter Details Date Type Department Care Team (Late st Contact Info) Description 06/28/2017 Procedure Pass [facility] [address] [place] [address] Social History Tobacco Use Types Packs/Day Years [...] documented as of this encounter Care Teams Char House Supervisor Relationship Specialty Start Date End Date William Mcghee DO [address] [place] [address] 18 [place] [address] PCP - General Internal Medicine 06/28/17 documented as of this encounter Additional Source Comments The information contained in this document represents components of the legal health record. It is not the complete legal health record.[facility]
--- OUTSIDE RECORDS SUMMARY | 2024-12-23 13:48 | XMS_ITS | Encounter Summary ---
Author Organization [facility] Address [address] [facility] [address] [place] [address] Phone Care Team Providers Care Pocket Setter Name Role Phone Fidencio Johnson DO Primary Care Provider Un available William Mcghee DO Primary Care Provider [phone] Encounter Details Date Type Department Care Team (Late st Contact Info) Description 05/15/2017 Procedure Pass [facility] Periop 6th floor [address] [place] [address] Social History Tobacco Use Types Packs/Day Years [...] documented as of this encounter Care Teams Pocket Setter Relationship Specialty Start Date End Date Fidencio Johnson DO PCP - General Internal Medicine 07/19/16 06/27/17 William Mcghee DO [address] [place] [address] 18 [place] [address] PCP - General Internal Medicine 06/28/17 documented as of this encounter Additional Source Comments The information contained in this document represents components of the legal health record. It is not the complete legal health record.[facility]
--- OUTSIDE RECORDS SUMMARY | 2024-12-23 13:48 | XMS_ITS | Encounter Summary ---
Author Organization [facility] Address [address] [facility] [address] [place] [address] Phone Care Team Providers Care Traveling Repair Accountant Name Role Phone Fidencio Johnson DO Primary Care Provider Un available William Mcghee DO Primary Care Provider Encounter Details Date Type Department Care Team (Late st Contact Info) Description 01/15/2017 Procedure Pass [facility] Periop 6th floor [address] [place] [address] Social History Tobacco Use Types Packs/Day Years [...] documented as of this encounter Care Teams Traveling Repair Accountant Relationship Specialty Start Date End Date Fidencio Johnson DO PCP - General Internal Medicine 07/19/16 06/27/17 William Mcghee DO [address] [place] [address] 18 [place] [address] PCP - General Internal Medicine 06/28/17 documented as of this encounter Additional Source Comments The information contained in this document represents components of the legal health record. It is not the complete legal health record.[facility]
--- OUTSIDE RECORDS SUMMARY | 2024-12-23 13:48 | XMS_ITS | Encounter Summary ---
Author Organization [facility] Address [address] [place] [address] Phone Care Team Providers Care Clean Up Worker Name Role Phone William Mcghee DO Primary Care Provider [phone] Encounter Details Date Type Department Care Team (Late st Contact Info) Description 06/28/2017 Procedure Pass [facility] Periop [address] [place] [address] Social History Tobacco Use Types Packs/Day Years [...] documented as of this encounter Care Teams Clean Up Worker Relationship Specialty Start Date End Date William Mcghee DO [address] [place] [address] 18 [place] [address] PCP - General Internal Medicine 06/28/17 documented as of this encounter Additional Source Comments The information contained in this document represents components of the legal health record. It is not the complete legal health record.[facility]
--- OUTSIDE RECORDS SUMMARY | 2024-12-23 13:49 | XMS_ITS | Encounter Summary ---
Author Organization [facility] Address [address] [facility] [address] [place] [address] Phone Care Team Providers Care Distribution Analyst Name Role Phone Fidencio Johnson DO Primary Care Provider Un available William Mcghee DO Primary Care Provider [phone] Encounter Details Date Type Department Care Team (Late st Contact Info) Description 01/15/2017 Prep for Surgery [facility] PACU6 [address] [place] [address] Letty Peter, ANGEL [address] [facility] [address] [place] [address] [email or web address] Social History Tobacco Use Types Packs/Day [...] documented as of this encounter Care Teams Distribution Analyst Relationship Specialty Start Date End Date Fidencio Johnson DO PCP - General Internal Medicine 07/19/16 06/27/17 William Mcghee DO [address] [place] [address] 18 [place] [address] PCP - General Internal Medicine 06/28/17 documented as of this encounter Additional Source Comments The information contained in this document represents components of the legal health record. It is not the complete legal health record.[facility]
--- OUTSIDE RECORDS SUMMARY | 2024-12-23 13:49 | XMS_ITS | Encounter Summary ---
Author Organization [facility] Address [address] [facility] [address] [place] [address] Phone Care Team Providers Care Curb Machine Operator Name Role Phone Fidencio Johnson DO Primary Care Provider Un available William Mcghee DO Primary Care Provider [phone] Encounter Details Date Type Department Care Team (Late st Contact Info) Description 01/22/2017 Procedure Pass [facility] Periop 6th floor [address] [place] [address] Social History Tobacco Use Types Packs/Day Years [...] documented as of this encounter Care Teams Curb Machine Operator Relationship Specialty Start Date End Date Fidencio Johnson DO PCP - General Internal Medicine 07/19/16 06/27/17 William Mcghee DO [address] [place] [address] 18 [place] [address] PCP - General Internal Medicine 06/28/17 documented as of this encounter Additional Source Comments The information contained in this document represents components of the legal health record. It is not the complete legal health record.[facility]
--- OUTSIDE RECORDS SUMMARY | 2024-12-23 13:49 | XMS_ITS | Continuity of Care Document ---
Author Organization [facility] [address] [facility] [address] [facility] [address] [place] [address] Phone [phone] Care Team Providers Care Shake Feeder Name Role Phone William Mcghee M.D. Care Team Information Rece iver [phone] Problems Active Problems Provider Date Type 1 [...] needed 25tabs Richy Davies M.D. 12/13/2023 Zolpidem Quhmuusc47zp Tablets take 1 tablet by mouth at bedtime 30tabs Richy Davies M.D. 12/13/2023 Dphipxr950Onmn/ML Solution inject 3 times daily before meals via insulin pump 30ml Richy Davies M.D. 11/08/2023 Tamsulosin HCL0.4mg Capsules 1 by mouth every day Richy Davies M.D. 05/30/2023 Metoprolol Qjlbygjs20ov Tablets 1/2 tab by mouth twice a day 56tabs Richy Davies M.D. 11/22/2022 Sertraline QSV029ra Tablets 1 by mouth every day 90tabs Richy Davies M.D. 11/22/[address]291-09246[address]lyu Caps [address] Part 3 capsules tid Richy Davies M.D. 11/22/2022 Atorvastatin Mlimlgc16by Tablets 1 by mouth every day 90tabs Richy Davies M.D. 11/22/2022 Vitamin D (Cholecalciferol)50mc g (1999 Ut) Capsules 1 by mouth every day Richy Davies M.D. 11/22/2022 Contour Next Blood Glucose TestStrips Test 3 Times A Day Dx: E11.8 300units E11.8 Richy Davies M.D. Amlodipine Umvjokbd15be Tablets Take 1 Tablet By Mouth Every [...] 283 Procedures Date Code Description Status 11/26/2024 82140 Glucose Monitoring Interpeta tion And Report Completed 07/23/2024 95233 Glucose Monitoring Interpeta tion And Report Completed 03/26/2024 16802 Glucose Monitoring Interpeta tion And Report Completed 09/05/2023 12332 Glucose Monitoring Interpeta tion And Report Completed 05/30/2023 04387 Glucose Monitoring Interpeta tion And Report Completed 11/22/2022 65283 Glucose Monitoring Interpeta tion And Report Completed 05/11/2022 07135 Glucose Monitoring Interpeta tion And Report Completed 01/09/2022 71883 Glucose Monitoring Interpeta tion And Report Completed [...] Referral Status Appt Richy Henry M.D. Created [address] [place] [address] [address] [place] [address] [phone]
--- OUTSIDE RECORDS SUMMARY | 2024-12-23 13:49 | XMS_ITS | Clinical Summary ---
Author Organization [facility] [email or web address] [facility] Address [address] [place] [address] Care Team Providers Care Blind Lacer Name Role Phone No, Pcp INDUSTRIAL SALES MANAGER Primary Care Provider Unavailabl e Immunizations Immunization [...] Adults 18 yrs or above (or HM Modifier)([facility]) 05/18/1958 SDOH Screening Reminder: Anita gleason for all adults ([facility]) 05/18/1957 Tobacco Smoking Cessation: i n Adults excluding Women: Behavioral and Pharmacotherapy Interventions ([facility]) 05/18/1957 DTaP/Tdap/Td Vaccines ([facility]) (1 - Tdap) 05/18/1958 Pneumococcal Vaccination Scr eening: Patients 50+ yrs of age ([facility]) (1 of 1 - PCV) 05/18/1989 Zoster/Shingles Vaccine Seri es Screening: Adults aged 18+ yrs (or HM Modifiers)([facility]) (1 of 2) 05/18/1989 RSV Vaccines (1 - 1-dose 75+ series) 05/18/2014 Flu Vaccination: Ages 65+: Y early High Dose Recommended (or Modifier)([facility]) 10/10/2024 12/11/2018 COVID-19 Vaccine Screening: Initial Series and Booster Status ([facility]) ( - season) 2024 Medical Devices Not on file Insurance [facility] MEDICARE MEDICARE Care Teams Blind Lacer Relationship Specialty Start Date End Date No, Pcp, INDUSTRIAL SALES MANAGER N/A Do not use PCP - General Family Medicine 12/11/18
--- OUTSIDE RECORDS SUMMARY | 2024-12-23 13:49 | XMS_ITS | Clinical Summary ---
Author Organization [address] [facility] Address [address] [place] [phone] Phone Care Team Providers Care Claims Associate Name Role Phone William Mcghee DO Primary Care Provider [phone] Allergies Active Allergy Reactions Criticality Noted Date [...] capsule Take by mouth. A ctive PANCREATIN-LIPA MK-OSZPUASO-OAG ORAL Pancrelipase, Wuq-Lvre-Tuky, 42607-86616 units CAPSULE ENTERIC COATED PARTICLES Take by [...] REL OTHER SURGICAL HISTORY 2007 Left PROCEDURE: HI ABLATION RENAL TUMOR UNILATERAL PERQ CRYOTHERAPY; COMMENT: Cryotherapy Left Renal Mass BACK SURGERY PROCEDURE: HISTORICAL BACK SURGERY; COMMENT: x 3 OTHER SURGICAL HISTORY PROCEDURE: HISTORY OTHER; COMMENT: testicular surgery TOTAL KNEE ARTHROPLASTY 12/24/2015 Left PROCEDURE: HISTORICAL TOTAL KNEE REPLACE CHOLECYSTECTOMY PROCEDURE: HISTORICAL CHOLECYSTECTOMY OTHER SURGICAL HISTORY Bilateral PROCEDURE: HISTORY OTHER; COMMENT: Hernia Repair OTHER SURGICAL HISTORY PROCEDURE: HI MANIPULATION KNEE JOINT UNDER GENERAL ANESTHESIA; COMMENT: x 2, 05/22/16 & 04/21/16. No cultures taken OTHER SURGICAL HISTORY PROCEDURE: RESECTION/DEBRIDEMENT OF PANCREAS; COMMENT: Pancreatic debridement 2008 & 2009 [place] OTHER SURGICAL HISTORY PROCEDURE: HI TENDON SHEATH INCISION; COMMENT: trigger finger release ROTATOR CUFF REPAIR Right PROCEDURE: HISTORICAL ROTATOR CUFF REPAIR OTHER SURGICAL HISTORY 01/23/2016 Left PROCEDURE: HI ARTHRP KNEE TIBIAL PLATEAU DBRDMT&PRTL SYNVCT; COMMENT: and 01/17/16 with polyethylene liner exchange CARDIAC CATHETERIZATION 1986 PROCEDURE: HISTORICAL CARDIAC CATH; COMMENT: with stent placement OTHER SURGICAL HISTORY PROCEDURE: HI UNLISTED LAPAROSCOPY PROCEDURE BILIARY TRACT; COMMENT: biliary bypass Medical History Medical History Date Comments Carpal tunnel syndrome 04/09/2018 DX:Carpal tunnel syndrome; COMMENT: Right release Chronic infection of left kn ee ([facility] V24, [facility] V28) 04/09/2018 DX:Chronic infection of lef t knee ([facility]); COMMENT: MRSA Hearing loss 04/09/2018 DX:Hearing loss; [...] (diabetes mellitus), type 2 with neurological complications ([facility] V24, [facility] V28) 04/09/2018 DX:DM (diabetes mellitus), t ype 2 with neurological complications ([facility]); COMMENT: Insulin pump Osteoarthritis 04/09/2018 DX:Osteoarthriti s Family History Medical History Relation Name Comments CABG Brother CVA Heart attack Father age 50 of [place], diabetes Stroke Mother age 50 of CVA [...] square meter and albuminuria creatinine ratio les* ([facility] V24, [facility] V28) Enlarged prostate with urinary obstruction from Last 3 Months Results * Prostate specific antigen screen (11/05/2024 10:56 AM EDT) Pathologist [facility] PSA 1.40 0.00 - 4.00 ng/mL LAB CHEMISTRY METHOD 11/05/2024 5:37 PM EDT [facility] Blood Venous blood specimen / Unknown Venipuncture / Unknown 11/05/2024 10:56 AM EDT 11/05/2024 10:56 AM EDT Narrative [facility] - 11/05/2024 5:37 PM EDT The Siemens Advia Spreadshirtaur Chemiluminescent Immunoassay is used. Results obtained with different assay methods or kits cannot be used interchangeably. Results cannot be interpreted as absolute evidence of the presence or absence of malignant disease. us Dedra Bowden NP LAB BLOOD ORDERABLES nal Result [facility] [address] [place] [address], * (ABNORMAL) Lipid panel with reflex to direct LDL (11/05/2024 10:56 AM EDT) Pathologist [facility] Cholesterol 85 0 - 200 mg/dL LAB CHEMISTRY METHOD 11/05/2024 4:46 PM EDT [facility] Triglycerides 115 0 - 150 mg/dL LAB CHEMISTRY METHOD 11/05/2024 4:46 PM EDT [facility] HDL 19(L) >=40 mg/dL LAB CHEMISTRY METHOD 11/05/2024 4:46 PM EDT [facility] LDL Calculated 43 0 - 100 mg/dL LAB CHEMISTRY METHOD 11/05/2024 4:46 PM EDT [facility] Comment:Estimated LDL Calcul ated using equation: Total cholesterol - HDL cholesterol - (Triglycerides/5) VLDL Cholesterol Will 23 mg/dL LAB CHEMISTRY METHOD 11/05/2024 4:46 PM EDT [facility] Non HDL Chol. (LDL+VLDL) 66 <145 mg/dL LAB CHEMISTRY METHOD 11/05/2024 4:46 PM EDT [facility] Chol/HDL Ratio 4.5(H) 0.0 - 4.4 LAB CHEMISTRY METHOD 11/05/2024 4:46 PM EDT [facility] Blood Venous blood specimen / Unknown Venipuncture / Unknown 11/05/2024 10:56 AM EDT 11/05/2024 10:56 AM EDT Dedra Bowden PROJECT TECHNICIAN LAB BLOOD ORDERABLES Fi nal Result [facility] [address] [place] [address], * (ABNORMAL) CBC auto differential (11/05/2024 10:56 AM EDT) WBC 6.1 4.8 - 10.8 K/mcL LAB HEMETOLOGY METHOD 11/05/2024 2:46 PM EDT [facility] RBC 4.20(L) 4.50 - 5.50 M/mcL LAB HEMETOLOGY METHOD 11/05/2024 2:46 PM EDT [facility] Hemoglobin 11.9(L) 13.5 - 17.5 g/dL LAB HEMETOLOGY METHOD 11/05/2024 2:46 PM EDT [facility] Hematocrit 37.8(L) 42.0 - 54.0 % LAB HEMETOLOGY METHOD 11/05/2024 2:46 PM EDT [facility] MCV 89.6 79.0 - 98.0 FL LAB HEMETOLOGY METHOD 11/05/2024 2:46 PM EDT [facility] MCH 28.2 27.0 - 32.0 pcg LAB HEMETOLOGY METHOD 11/05/2024 2:46 PM T [facility] MCHC 31.5(L) 32.0 - 37.0 g/dL LAB HEMETOLOGY METHOD 11/05/2024 2:46 PM [facility] RDW 14.6 11.0 - 15.0 % LAB HEMETOLOGY METHOD 11/05/2024 2:46 PM EDT [facility] Platelets 139 130 - 400 K/mcL LAB HEMETOLOGY METHOD 11/05/2024 2:46 PM [facility] MPV 11.5(H) 7.0 - 11.0 FL LAB HEMETOLOGY METHOD 11/05/2024 2:46 PM [facility] NRBC 0.0 <1.0 % LAB HEMETOLOGY METHOD 11/05/2024 2:46 PM [facility] NRBC Absolute 0.00 <0.10 K/mcL LAB HEMETOLOGY METHOD 11/05/2024 2:46 PM [facility] Neutrophils Relative 65.5 % LAB HEMETOLOGY METHOD 11/05/2024 2:46 PM [facility] Lymphocytes Relative 20.5 % LAB HEMETOLOGY METHOD 11/05/2024 2:46 PM [facility] Monocytes Relative 10.7 % LAB HEMETOLOGY METHOD 11/05/2024 2:46 PM [facility] Eosinophils Relative 2.3 % LAB HEMETOLOGY METHOD 11/05/2024 2:46 PM [facility] Basophils Relative 0.7 % LAB HEMETOLOGY METHOD 11/05/2024 2:46 PM [facility] Immature Granulocytes Relative 0.3 % LAB HEMETOLOGY METHOD 11/05/2024 2:46 PM EDT [facility] Neutrophils Absolute 3.99 1.50 - 7.00 K/mcL LAB HEMETOLOGY METHOD 11/05/2024 2:46 PM EDT [facility] Lymphocytes Absolute 1.25 1.00 - 5.00 K/mcL LAB HEMETOLOGY METHOD 11/05/2024 2:46 PM EDT [facility] Monocytes Absolute 0.65 0.20 - 1.00 K/mcL LAB HEMETOLOGY METHOD 11/05/2024 2:46 PM EDT [facility] Eosinophils Absolute 0.14 0.00 - 0.50 K/mcL LAB HEMETOLOGY METHOD 11/05/2024 2:46 PM EDT [facility] Basophils Absolute 0.04 0.00 - 0.20 K/mcL LAB HEMETOLOGY METHOD 11/05/2024 2:46 PM EDT [facility] Immature Granulocytes Absolute 0.02 0.00 - 0.03 K/mcL LAB HEMETOLOGY METHOD 11/05/2024 2:46 PM EDT [facility] Blood Venous blood specimen / Unknown Venipuncture / Unknown 11/05/2024 10:56 AM EDT 11/05/2024 10:56 AM EDT Dedra Bowden PROJECT TECHNICIAN LAB BLOOD ORDERABLES Fi nal Result [facility] [address] [place] [address], * Thyroid stimulating hormone (11/05/2024 10:56 AM EDT) TSH 3.51 0.40 - 4.00 mcIU/mL LAB CHEMISTRY METHOD 11/05/2024 6:04 PM EDT [facility] Blood Venous blood specimen / Unknown Venipuncture / Unknown 11/05/2024 10:56 AM EDT 11/05/2024 10:56 AM EDT us Dedra Bowden PROJECT TECHNICIAN LAB BLOOD ORDERABLES Fi nal Result [facility] [address] [place] [address], [place] [phone] * (ABNORMAL) Comprehensive metabolic panel (11/05/2024 10:56 AM EDT) Sodium 141 133 - 145 mmol/L LAB CHEMISTRY METHOD 11/05/2024 5:04 PM [facility] Potassium 4.3 3.5 - 5.5 mmol/L LAB CHEMISTRY METHOD 11/05/2024 5:04 PM [facility] Chloride 107 96 - 110 mmol/L LAB CHEMISTRY METHOD 11/05/2024 5:04 PM [facility] CO2 29 21 - 32 mmol/L LAB CHEMISTRY METHOD 11/05/2024 5:04 PM [facility] Anion Gap 5 3 - 11 LAB CHEMISTRY METHOD 11/05/2024 5:04 PM [facility] Glucose 124(H) 70 - 100 mg/dL LAB CHEMISTRY METHOD 11/05/2024 5:04 PM [facility] BUN 33(H) 5 - 25 mg/dL LAB CHEMISTRY METHOD 11/05/2024 5:04 PM [facility] Creatinine 1.39(H) 0.70 - 1.30 mg/dL LAB CHEMISTRY METHOD 11/05/2024 5:04 PM [facility] eGFR 50(L) >=60 mL/min/1. 73m2 LAB CHEMISTRY METHOD 11/05/2024 5:04 PM [facility] Comment:Calculation based on the Chronic Kidney Disease Epidemiology Collaboration (CKD-EPI) equation refit without adjustment for race. BUN/Creatinine Ratio 23.7 LAB CHEMISTRY METHOD 11/05/2024 5:04 PM [facility] Calcium 8.5 8.5 - 10.5 mg/dL LAB CHEMISTRY METHOD 11/05/2024 5:04 PM EDT [facility] AST (SGOT) 107(H) 10 - 42 unit/L LAB CHEMISTRY METHOD 11/05/2024 5:04 PM EDT [facility] ALT (SGPT) 61(H) 10 - 60 unit/L LAB CHEMISTRY METHOD 11/05/2024 5:04 PM EDT [facility] Alkaline Phosphatase 93 42 - 121 unit/L LAB CHEMISTRY METHOD 11/05/2024 5:04 PM EDT [facility] Total Protein 6.7 6.0 - 8.0 g/dL LAB CHEMISTRY METHOD 11/05/2024 5:04 PM EDT [facility] Albumin 3.6 3.2 - 5.0 g/dL LAB CHEMISTRY METHOD 11/05/2024 5:04 PM EDT [facility] Total Bilirubin 0.4 0.0 - 1.4 mg/dL LAB CHEMISTRY METHOD 11/05/2024 5:04 PM EDT [facility] Blood Venous blood specimen / Unknown Venipuncture / Unknown 11/05/2024 10:56 AM EDT 11/05/2024 10:56 AM EDT Dedra Bowden NP LAB BLOOD ORDERABLES Fi nal Result [facility] [address] [place] [address], from Last 3 Months Insurance MEDICARE [facility] Care Teams Claims Associate Relationship Specialty Start Date End Date iWlliam Mcghee DO [address] [place] [phone] PCP - General 01/22/13
--- OUTSIDE RECORDS SUMMARY | 2024-12-23 13:49 | XMS_ITS | Encounter Summary ---
Author Organization [facility] Address [address] [address] Phone Care Team Providers Care Placer Miner Name Role Phone William Mcghee DO Primary Care Provider [phone] Encounter Details Date Type Department Care Team (Late st Contact Info) Description 04/05/2018 Transcribe Orders [facility] Radiology [address] [place] [phone] Hubert Marrufo [address] [place] [phone] [email or web address] Social History Tobacco Use Types Packs/Day Years Used Date Smoking Tobacco: Former Cigarettes 2 26 03 322 1986 Smokeless Tobacco: Never Alcohol Use Standard [...] (No Interpretation) (04/05/2018 12:00 PM EST) Narrative [facility] - 04/05/2018 12:00 PM EST [...] documented as of this encounter Care Teams Placer Miner Relationship Specialty Start Date End Date William Mcghee DO [address] [place] [phone] PCP - General Internal Medicine 06/28/17 documented as of this encounter Additional Source Comments The information contained in this document represents components of the legal health record. It is not the complete legal health record.[facility]
--- OUTSIDE RECORDS SUMMARY | 2024-12-23 13:49 | XMS_ITS | Clinical Summary ---
Author Organization [facility] Address [address] [place] [phone] Phone Care Team Providers Care Swim Instructor Name Role Phone William Mcghee DO Primary Care Provider [phone] Allergies Active Allergy Reactions Criticality Noted Date [...] Brother 6 Brother 7 Father (Age 67) [place] Mother (Age 57) heart attack Sister 1 [...] this topic Medical Devices Implanted Type Area Computer Specialist Device Identifier Shelf Expiration Date Model / Serial / Lot Pin Orthopedic [id number] Smooth Double Sharp Tip S/S Steinmann Pk/6ea - [id number] Implanted:Qty: 1 on 01/15/2017 by Sourav Rodriguez MD at [facility] STANDARD Left: Knee [employer] 04/17/2018 [id number] / / [id number] Description:antibiotic cemen t surrounded steiman pin and placed in femoral canal of left leg after explantation of total knee implants Pin Orthopedic [id number] Smooth Double Sharp Tip S/S Steinmann Pk/6ea - [id number] Implanted:Qty: 1 on 01/15/2017 by Sourav Rodriguez MD at [facility] STANDARD Knee [employer] 12/15/2017 [id number] / / [id number] Description:antibiotic cemen t surrounded steiman pin. Sternal Wires Cement Bone Simplex P Full Dose Bx/1ea - [id number] Implanted:Qty: 2 on 01/15/2017 by Sourav Rodriguez MD at [facility] Left: Knee [employer] 07/10/2019 [id number] / / [id number] Description:each bag ofcemen t mixed with 2 gms of vancomycin powder and tobramycin 1.6gms Knee Nail Fusion [id number] - [id number] Implanted:Qty: 1 on 06/28/2017 by Maulik Velasquez MD at [facility] Left: Knee BORJA 07/12/2025 [id number] / / [id number] Screw Bone 6.4x85mm Recon Screw Implanted:Qty: 1 on 06/28/2017 by Maulik Velasquez MD at [facility] Left: Knee BORJA AND NEPH 03/14/2027 / / [id number] Screw Bone 6.4x85 Mm Recon Screw Implanted:Qty: 1 on 06/28/2017 by Maulik Velasquez MD at [facility] Left: Knee BORJA 02/13/2027 / / [id number] Screw Trigen Low Profile 1iez21jg - [id number] Implanted:Qty: 1 on 06/28/2017 by Maulik Velasquez MD at [facility] Left: Knee BORJA 02/08/2026 [id number] / / [id number] Screw Recon Hex Internal 6.4x85mm - [id number] Implanted:Qty: 1 on 06/28/2017 by Maulik Velasquez MD at [facility] JONH 03/14/2027 [id number] / / [id number] Description:Transfered from one time inplant Screw Recon Hex Internal 6.4x85mm - [id number] Implanted:Qty: 1 on 06/28/2017 by Maulik Velasquez MD at [facility] JONH 02/13/2027 [id number] / / [id number] Description:Transfered from one time implant Procedures Procedure Name Priority Date/Time Associated Diagnosis Comments BASIC METABOLIC PANEL Routine 07/04/2017 6:19 AM EDT HEMOGLOBIN A1C Routine 06/12/2017 11:30 AM EDT Pre-op evaluation from Last 3 Months or Most Recently Relevant to Health Maintenance Results * (ABNORMAL) Basic metabolic panel (07/04/2017 6:19 AM EDT) SODIUM 140 136 - 145 mmol/L [facility] POTASSIUM 4.6 3.4 - 5.0 mmol/L [facility] CHLORIDE 102 98 - 107 mmol/L [facility] CO2 27 22 - 31 mmol/L [facility] BUN 28(H) 6 - 23 mg/dL [facility] CREATININE 0.86 0.50 - 1.20 mg/dL [facility] GLUCOSE 74 70 - 100 mg/dL [facility] CALCIUM 8.3(L) 8.8 - 10.7 mg/dL [facility] EGFR 83 >59 mL/min/1.[address] [facility] Comment:If patient is black, multiply result by 1.159. Estimated glomerular filtration rate calculated using the CKD-EPI equation. ANION GAP 11 7 - 17 mmol/L [facility] Blood 07/04/2017 6:19 AM EDT 07/04/2017 6:38 AM EDT Maulik Velasquez MD LAB BLOOD ORDERABLES Janet l Result Performing Organization Address City/State/[facility] Co de Phone Number [facility] [address] [place] [phone] * (ABNORMAL) Hemoglobin A1c (06/12/2017 11:30 AM EDT) HEMOGLOBIN A1C 7.8(H) 4.2 - 5.8 % [facility] CALC MEAN BLD GLUC 177 mg/dL [facility] Comment: There is no established [...] ORDERABLES Janet l Result Performing Organization Address City/State/[facility] Co de Phone Number [facility] [address] [place] [phone] from Last 3 Months or Most Recently Relevant to Health Maintenance Insurance MEDICARE PART A & B Member Subscriber Plan / Payer ( fective 1997-Present) Name:Tay Elizabeth Member ID:[id number] Relation to Subscriber:Self Name:Tay Elizabeth Subscriber ID:[id number] Payer ID:[id number] Group ID:Not on file Type:Medicare Address: [facility] [employer] [facility] [employer] [facility] [address] [place] [phone] [facility] MEDEX SUPPLEMENT MEDICARE PART A & B [employer] MEDEX SUPPLEMENT MEDICARE PART A & B [employer] MEDEX SUPPLEMENT MEDICARE PART A & B [employer] MEDEX SUPPLEMENT MEDICARE PART A & B [employer]es MEDEX SUPPLEMENT MEDICARE PART A & B [employer] MEDEX SUPPLEMENT MEDICARE PART A & B [employer] MEDEX SUPPLEMENT MEDICARE PART A & B [employer] MEDEX SUPPLEMENT MEDICARE PART A & B [employer] MEDEX SUPPLEMENT Advance Directives For more information, please contact: [phone] (9AM - 5PM [place], Sunday-Sunday) Documents on File Type Date Recorded Patient Towel Sorter Expl anation Healthcare Proxy 06/28/2017 8:46 AM [...] Agent (Proxy form on file) Care Teams Swim Instructor Relationship Specialty Start Date End Date William Mcghee DO [address] [place] [phone] PCP - General Internal Medicine 06/28/17 Additional Source Comments The information contained in this document represents components of the legal health record. It is not the complete legal health record.[facility]
--- OUTSIDE RECORDS SUMMARY | 2024-12-23 13:49 | XMS_ITS | Encounter Summary ---
Author Organization [facility] Address [address] [address] Phone Care Team Providers Care Fiberline Supervisor Name Role Phone William Mcghee DO Primary Care Provider [phone] Encounter Details Date Type Department Care Team (Late st Contact Info) Description 07/23/2018 Transcribe Orders [facility] Women[facility] Radiology [address] [place] [phone] Hubert Marrufo [address] [place] [phone] [email or web address] Social History Tobacco Use Types Packs/Day [...] documented as of this encounter Care Teams Fiberline Supervisor Relationship Specialty Start Date End Date William Mcghee DO [address] [place] [address] [address] [place] [address] PCP - General Internal Medicine 06/28/17 documented as of this encounter Additional Source Comments The information contained in this document represents components of the legal health record. It is not the complete legal health record.[facility]
== END 2024-12-23 12:04 | disposition home or self-care (01) ==
LOC: HO.HKAS 11:21
PROVIDERS: PCP Internal Medicine; Visit Provider Internal Medicine Nephrology
DX: N18.31 Chronic kidney disease, stage 3a (principal); N17.9 Acute kidney failure, unspecified; I10 Essential (primary) hypertension
CPT/HCPCS: 99214

== ENCOUNTER → 2024-12-23 11:21 | Outpatient (BNVA) | payer MEDICARE, SELFPAY | PROVIDERS: PCP Internal Medicine; Visit Provider Internal Medicine Nephrology | DX: N18.31 Chronic kidney disease, stage 3a (principal); I10 Essential (primary) hypertension; N17.9 Acute kidney failure, unspecified | CPT/HCPCS: 99212 ==